=== PATIENT | male | born 1950 | race Caucasian/White ===

== ENCOUNTER 2016-04-16 19:15 | Inpatient (IN) | payer MEDICARE, OTHER ==
[~2016-04-16] VITALS: Ht 172.7 cm; Wt 92.0 kg
[~2016-04-16 19:15] MED LIST: ALBU18HF IH; AZIT600T PO; BACTDS PO; CYAN100053 IM; DARU800T PO; ELVI1TAB PO; ESCI10TA PO; FAMO-18 PO; LORA-186 PO; MULT-552 PO; TAMS-14 PO; [UNRECOGNIZED DRUG - CODE] PO
[2016-04-16 19:21] VITALS: Ht 172.7 cm; Wt 92.0 kg
[2016-04-16] MEDS ORDERED: SODIUM CHLORIDE 0.9% 1L BAG IV* STA (20:52)
[2016-04-16] MEDS ORDERED: VANCOMYCIN 1 GM (PMX) 250 ML IVPB STA (20:52)
[2016-04-16 20:55] VITALS: TEMP 99.7
[2016-04-16] MEDS ORDERED: CEFEPIME 2GM/50 ML (PMX) 50 ML IVPB SCH (21:00)
[2016-04-16] MEDS ORDERED: FLUCONAZOLE 400 MG/NS (PMX) 200 ML IVPB ONE (21:00)
[2016-04-16] MEDS ORDERED: AZIT600T PO (21:21)
[2016-04-16] MEDS ORDERED: DARU800T PO (21:21)
[2016-04-16] MEDS ORDERED: ELVI1TAB PO (21:22)
[2016-04-16] MEDS ORDERED: LORA10TA3 PO (21:23)
--- NOTE | 2016-04-16 21:24 | RADRPT ---
PROCEDURE: XR Chest. CLINICAL INDICATION: Cough. TECHNIQUE: PA and lateral chest x-ray. COMPARISON: Chest, 04/18/2015. FINDINGS: The heart is not enlarged. The lungs are somewhat overinflated. There is no acute infiltrate in th e lungs. No focal opacification is seen. No pleural effusion. There is multilevel mild degenerativ e spondylosis of the thoracic spine with mild anterolateral osteophytosis. IMPRESSION: 1. Somewhat overinflated lungs. RPTAT: GG .Mike Weiner MD, MD Date Time Electronically viewed and signed by .Mike Weiner MD, MD on 04/16/2016 21:24 .Y/
[2016-04-16 21:49] LABS: ADD SCAN DIFF NO
[2016-04-16 21:53] LABS: ABNORMAL IP MESSAGE 1; HEMATOCRIT 36.6 % (42.0-52.0); HEMOGLOBIN 12.8 g/dl (14.0-18.0); MEAN CORPUSCULAR HEMOGLOBIN 29.5 pg (29.0-33.0); MEAN CORPUSCULAR VOLUME 84.3 fl (82.0-101.0); MEAN PLATELET VOLUME 9.1 fl (7.4-10.4); PLATELET COUNT 245 10^3/UL (140-415); RED BLOOD COUNT 4.34 10^6/ul (4.70-6.10); RED CELL DISTRIBUTION WIDTH 13.9 % (11.5-14.5)
[2016-04-16] MEDS ORDERED: morphine 10 MG INJ IV ONE (22:00)
[2016-04-16 22:10] LABS: INR 1.01; PROTIME 13.3 Sec (12.2-14.2)
[2016-04-16 22:11] LABS: ALBUMIN 3.8 g/dl (3.3-4.9); PARTIAL THROMBOPLASTIN TIME 33.4 Sec (25.0-35.0)
[2016-04-16 22:12] LABS: CHLORIDE 102 mmol/L (97-110); SODIUM 138 mmol/L (135-144)
[2016-04-16 22:14] LABS: ANION GAP 18 (8-16); BILIRUBIN,INDIRECT 0.2 mg/dl (0-1.1); BILIRUBIN,TOTAL 0.2 mg/dl (0.2-1.3); CARBON DIOXIDE 22 mmol/L (21-31); CREATININE 0.79 mg/dl (0.61-1.24)
[2016-04-16 22:15] LABS: ALANINE AMINOTRANSFERASE 31 IU/L (13-69); ALBUMIN/GLOBULIN RATIO 1.05; ALKALINE PHOSPHATASE 107 IU/L (42-121); ASPARTATE AMINO TRANSFERASE 44 IU/L (15-46); BLOOD UREA NITROGEN 13 mg/dl (7-20); CALCIUM 8.6 mg/dl (8.4-10.2); GLUCOSE 132 mg/dl (70-220); TOTAL PROTEIN 7.4 g/dl (6.1-8.1)
[2016-04-16 22:26] LABS: ADD UMIC NO; URINE BILIRUBIN (Dip) NEGATIVE (NEGATIVE); URINE BLOOD (Dip) NEGATIVE (NEGATIVE); URINE COLOR LT. YELLOW (YELLOW); URINE GLUCOSE (Dip) NEGATIVE (NEGATIVE); URINE KETONES (Dip) NEGATIVE (NEGATIVE); URINE LEUKOCYTE ESTERASE (Dip) NEGATIVE (NEGATIVE); URINE NITRITE (Dip) NEGATIVE (NEGATIVE); URINE TOTAL PROTEIN (Dip) NEGATIVE (NEGATIVE); URINE UROBILINOGEN (Dip) 0.2 E.U./dL (0.1-1.0)
[2016-04-16 22:27] LABS: TROPONIN-I < 0.012 ng/ml (0.00-0.12)
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
[2016-04-16 23:53] LABS: EOSINOPHILS # 0.1 10^3/ul (0.0-0.5); LYMPHOCYTES # 0.8 10^3/ul (0.8-2.9); MONOCYTE # 0.5 10^3/ul (0.3-0.9); NEUTROPHIL # 0.7 10^3/ul (1.6-7.5)
[2016-04-17] MEDS ORDERED: ACETAMINOPHEN 325 MG TAB PO PRN
[2016-04-17] MEDS ORDERED: ONDANSETRON 4 MG INJ IV PRN
[2016-04-17 00:27] VITALS: BP 128/81; PULSE 69; RESP 18
[2016-04-17 00:28] VITALS: BMI 30.8
[2016-04-17] MEDS ORDERED: ZOLPIDEM 5 MG TAB PO PRN (01:00)
[2016-04-17] MEDS ORDERED: LEVOFLOXACIN 500MG/D5W (PMX) 100 ML IVPB SCH ×2 (01:00→01:30)
[2016-04-17] MEDS: FLUCONAZOLE 100 MG/NS (PMX) 50 ML IVPB SCH (01:17)
[2016-04-17] MEDS: HYDROCODONE/APAP (5/325) TAB PO PRN (01:26)
[2016-04-17 05:48] LABS: ADD SCAN DIFF NO
[2016-04-17 05:59] LABS: ALBUMIN 3.3 g/dl (3.3-4.9); POTASSIUM 3.7 mmol/L (3.5-5.1)
[2016-04-17 06:01] LABS: BILIRUBIN,INDIRECT 0.1 mg/dl (0-1.1); BILIRUBIN,TOTAL 0.1 mg/dl (0.2-1.3); CREATININE 0.66 mg/dl (0.61-1.24)
[2016-04-17 06:02] LABS: ALBUMIN/GLOBULIN RATIO 1.06; CALCIUM 7.9 mg/dl (8.4-10.2); TOTAL PROTEIN 6.4 g/dl (6.1-8.1)
[2016-04-17 06:07] LABS: ABNORMAL IP MESSAGE 1; HEMATOCRIT 35.1 % (42.0-52.0); HEMOGLOBIN 12.1 g/dl (14.0-18.0); MEAN CORPUSCULAR HEMOGLOBIN 29.3 pg (29.0-33.0); MEAN CORPUSCULAR HGB CONC 34.5 g/dl (32.0-37.0); MEAN PLATELET VOLUME 9.2 fl (7.4-10.4); PLATELET COUNT 211 10^3/UL (140-415); RED BLOOD COUNT 4.13 10^6/ul (4.70-6.10); WHITE BLOOD COUNT 1.6 10^3/ul (4.8-10.8)
[2016-04-17] MEDS: morphine 2 MG INJ IV PRN ×3 (06:39→20:37)
[2016-04-17 08:12] VITALS: BP 110/69; RESP 19
[2016-04-17 09:23] LABS: EOSINOPHILS # 0.2 10^3/ul (0.0-0.5); LYMPHOCYTES # 0.6 10^3/ul (0.8-2.9); MONOCYTE # 0.4 10^3/ul (0.3-0.9); NEUTROPHIL # 0.4 10^3/ul (1.6-7.5)
[2016-04-17 09:24] LABS: SMUDGE CELLS% Rare
[2016-04-17] MEDS: ENOXAPARIN 40 MG/0.4 ML SYG SC SCH (11:01)
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
--- NOTE | 2016-04-17 14:13 | CONS ---
Date/Time of Note Date/Time of Note DATE: 04/17/16 TIME: 14:08 Assessment/Plan Assessment/Plan Additional Assessment/Plan Chest x-ray was reviewed from yesterday which is clear. Labs also were reviewed. Assessment and recommendations; 1. Patient with history of being HIV positive off medication for the last 6 months with significant leukopenia. 2. Clear chest x-ray. 3. Patient having dysphagia cannot rule out fungal esophagitis. Continue current treatment. ID consult is pending. Patient has been resumed on his antiviral regimen. May need to have an EGD. HIV viral load and CD4 CD8 counts are pending. Consultation Date/Type/Reason Admit Date/Time Apr 16, 2016 at 23:36 Date of Consultation: Apr 17, 2016 Type of Consultation: Pulmonary Reason for Consultation Pulmonary consultation obtained for evaluation of possible pneumonia. Patient admitted to hospital because of cough, fever. Has history of HIV positivity. Next History of present illness; patient is a 66-year-old male who came into the hospital yesterday with a 2 day history of fever as well as nonspecific upper abdominal pain without any vomiting. Patient has been complaining of some difficulty swallowing for the last couple of days. Denies any cough, wheezing, chest pain or sputum production. She also denies any diarrhea or vomiting. Upon evaluation a chest x-ray was done which has essentially been unremarkable. Patient also had a CBC done which is showing leukopenia. Patient's viral load as well as CD4/CD8 counts are not available. According to the patien,t he did not take his medication for the last 6 months on account of GI upset. Past medical history; HIV positive. Patient denies any history of opportunistic infections. No sign of any surgeries. Medications; were reviewed. Allergies; are none. Social history; she does not smoke or use any drugs no heat no history of any alcohol use. Family history; he is . Occupational history; patient is on disability. Review of systems; denies any headache, visual changes. Any hearing loss. Any sinus symptoms. Does complain of dysphagia. Planes of sore throat. Denies any chest pain. Any angina, wheezing. Any cough or sputum production. Denies any abdominal pain. Complains of nausea. Denies any vomiting. Denies any diarrhea, melena, hematochezia. Denies any edema. Denies any skin changes. General examination; elderly male currently in no distress awake and alert. Eyes: no complaints ENT: no complaints Respiratory: cough Cardiovascular: no complaints Psychological: nl mood/affect Social History Alcohol Use: none Smoking Status: Former smoker Drug Use: cocaine Exam/Review of Systems Vital Signs Vitals Vital Signs Date Time Temp Pulse Resp B/P Pulse Ox O2 Delivery O2 Flow Rate FiO2 04/17/16 08:12 97.5 77 19 110/69 98 04/17/16 08:00 Room Air Intake and Output 04/16/16 04/16/16 04/17/16 15:00 23:00 07:00 Intake Total 50 ml 690 ml Output Total 800 ml Balance 50 ml -110 ml Exam HEENT examination; supple neck, no JVD. No lymphadenopathy. Midline trachea. Pharynx is clear. Fair dentition. Pupils are midsize and reactive to light. No thyromegaly. No lymphadenopathy. Chest examination; clear to auscultation bilaterally. S1-S2 audible, regular rhythm. No murmurs. Abdomen examination; soft, nondistended. Nontender. No organomegaly. Bowel sounds audible. Extremity examination; no peripheral edema. Pulses 2+ bilaterally. There is no clubbing. 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 Results Result Diagram: 04/17/167 04/17/16446 Results 24 hrs Laboratory Tests Test 04/16/16 21:18 04/16/16 21:30 04/16/16 23:15 04/17/16 01:05 Activated Partial Thromboplast Time 33.4 Alanine Aminotransferase (ALT/SGPT) 31 Albumin 3.8 Albumin/Globulin Ratio 1.05 Alkaline Phosphatase 107 Anion Gap 18 H Aspartate Amino Transf (AST/SGOT) 44 Blood Urea Nitrogen 13 Calcium Level 8.6 Carbon Dioxide Level 22 Chloride Level 102 Creatinine 0.79 Differential Comment MANUAL DIFF Direct Bilirubin 0.00 Eosinophils # 0.1 Eosinophils % 4.0 Globulin 3.60 H Glucose Level 132 Hematocrit 36.6 L Hemoglobin 12.8 L INR International Normalized Ratio 1.01 Indirect Bilirubin 0.2 Lactic Acid Level 1.1 0.9 0.6 Lymphocytes # 0.8 Lymphocytes % 40.0 Mean Corpuscular Hemoglobin 29.5 Mean Corpuscular Hemoglobin Concent 35.0 Mean Corpuscular Volume 84.3 Mean Platelet Volume 9.1 # Monocytes # 0.5 Monocytes % 23.0 H Neutrophils # 0.7 L Neutrophils % 33.0 L Platelet Count 245 Potassium Level 4.0 Prothrombin Time 13.3 Prothrombin Time Ratio 1.0 Red Blood Count 4.34 L Red Cell Distribution Width 13.9 Sodium Level 138 Total Bilirubin 0.2 Total Protein 7.4 Troponin I < 0.012 White Blood Count 2.0 #L Urine Bilirubin NEGATIVE Urine Clarity CLEAR Urine Color LT. YELLOW Urine Glucose NEGATIVE Urine Hemoglobin NEGATIVE Urine Ketones NEGATIVE Urine Leukocyte Esterase NEGATIVE Urine Nitrite NEGATIVE Urine Specific [place] 1.010 Urine Total Protein NEGATIVE Urine Urobilinogen 0.2 E.U./dL Urine pH 6.0 Test 04/17/16 04:47 Alanine Aminotransferase (ALT/SGPT) 36 Albumin 3.3 Albumin/Globulin Ratio 1.06 Alkaline Phosphatase 88 Anion Gap 14 Aspartate Amino Transf (AST/SGOT) 47 H Band Neutrophils % 2.0 Basophils # 0.0 Basophils % 1.0 Blast Cells % 1.0 H Blastocytes # 0.0 Blood Urea Nitrogen 9 Calcium Level 7.9 L Carbon Dioxide Level 23 Chloride Level 109 Creatinine 0.66 Differential Comment MANUAL DIFF Direct Bilirubin 0.00 Eosinophils # 0.2 Eosinophils % 10.0 H Giant Platelets OCCASIONAL Globulin 3.10 Glucose Level 89 # Hematocrit 35.1 L Hemoglobin 12.1 L Indirect Bilirubin 0.1 Lymphocytes # 0.6 L Lymphocytes % 40.0 Mean Corpuscular Hemoglobin 29.3 Mean Corpuscular Hemoglobin Concent 34.5 Mean Corpuscular Volume 85.0 Mean Platelet Volume 9.2 Metamyelocytes # 0.0 Metamyelocytes % 2.0 H Monocytes # 0.4 Monocytes % 22.0 H Neutrophils # 0.4 L Neutrophils % 22.0 L Nucleated Red Blood Cells % 1.0 H Platelet Count 211 Potassium Level 3.7 Red Blood Count 4.13 L Red Cell Distribution Width 14.0 Smudge Cells Rare Sodium Level 142 Total Bilirubin 0.1 L Total Protein 6.4 # White Blood Count 1.6 L Medications Medications Current Medications Acetaminophen 650 mg 650 mg Q4H PRN PO PAIN AND OR ELEVATED TEMP; Start at 01:00 Fluconazole/ Sodium Chloride (Diflucan 100 Mg/ NS (Pmx)) 50 ml @ 50 mls/hr Q24H IVPB ; Start 04/17/16 at 02:00 Enoxaparin Sodium (Lovenox) 40 mg DAILY SC Last administered on 04/17/16 11:01 ; Admin Dose 40 MG; Start 04/17/16 at 09:00 Acetaminophen/ Hydrocodone Bitart ([place] (5/325)) 1 tab Q4H PRN PO PAIN Last administered on 04/17/16 01:26; Admin Dose 1 TAB; Start 04/17/16 at 01:00 Morphine Sulfate (morphine) 2 mg Q4H PRN IV SEVERE PAIN Last administered on 06:39; Admin Dose 2 MG; Start 04/17/16 at 01:00 Zolpidem Tartrate 5 mg 5 mg HS PRN PO INSOMNIA Last administered on 04/17/16 01:26; Admin Dose 5 MG; Start 04/17/16 at 01:00 Levofloxacin/ Dextrose (Levaquin 500mg/ D5W 100 ml (Pmx)) 100 ml @ 100 mls/hr Q24H IVPB Last administered on 04/17/16 01:29; Admin Dose 100 MLS/HR; Start at 01:30 SCOOBY DAMIAN Apr 17, 2016 14:12
[2016-04-17] MEDS: ACETAMINOPHEN 325 MG TAB PO PRN (14:50)
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
[2016-04-17 19:54] VITALS: BP 141/92; RESP 20
[2016-04-17] MEDS: ARTIFICIAL TEARS 15 ML OPH BOTH EYES PRN (20:37)
[2016-04-18] MEDS: FLUCONAZOLE 100 MG/NS (PMX) 50 ML IVPB SCH (02:13)
[2016-04-18] MEDS: ARTIFICIAL TEARS 15 ML OPH BOTH EYES PRN ×2 (02:13→18:46)
[2016-04-18] MEDS: morphine 2 MG INJ IV PRN ×4 (02:13→22:37)
[2016-04-18 05:55] LABS: ADD SCAN DIFF NO
[2016-04-18 05:59] LABS: ABNORMAL IP MESSAGE 1; HEMATOCRIT 37.6 % (42.0-52.0); MEAN CORPUSCULAR HEMOGLOBIN 29.3 pg (29.0-33.0); MEAN CORPUSCULAR HGB CONC 34.6 g/dl (32.0-37.0); MEAN CORPUSCULAR VOLUME 84.7 fl (82.0-101.0); MEAN PLATELET VOLUME 9.1 fl (7.4-10.4); PLATELET COUNT 216 10^3/UL (140-415); RED BLOOD COUNT 4.44 10^6/ul (4.70-6.10); RED CELL DISTRIBUTION WIDTH 14.2 % (11.5-14.5); WHITE BLOOD COUNT 1.6 10^3/ul (4.8-10.8)
[2016-04-18 06:22] LABS: POTASSIUM 3.9 mmol/L (3.5-5.1)
[2016-04-18 06:25] LABS: CREATININE 0.71 mg/dl (0.61-1.24)
[2016-04-18 06:26] LABS: CALCIUM 8.7 mg/dl (8.4-10.2)
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
[2016-04-18 07:16] VITALS: BP 143/89; RESP 20
--- NOTE | 2016-04-18 08:49 | RADRPT ---
Echocardiogram Report Patient Name: CYNTHIA CLIFFORD Gender: Male Date: 1950 Study Date: 17-Apr-2016 Biblical Languages Professor: [facility] Location: [id number] Ref. Physician: MAXIME MCKEON Quality: Adequate Procedures: Transthoracic echocardiogram with complete 2D, M-Mode, and doppler examination. Indications: Chest Pain. 2D/M Mode Doppler Measurement Value Normal Ranges Measurement Value Normal Ranges LVIDd 2D 3.7 3.5 - 5.6 cm AV Peak Jae 0.8 m/sec LVIDs 2D 2.5 2.1 - 4.1 cm AV Peak PG 2.5 mmHg LVPWd 2D 1.3 0.6 - 1.1 cm LVOT Peak Jae 0.7 m/sec IVSd 2D 1.3 0.6 - 1.1 cm LVOT Peak PG 1.9 mmHg AoR Diam 2D 2.9 2.0 - 3.7 cm EDV 2D 58.0 cm3 ESV 2D 16.5 cm3 Findings Left Ventricle: Normal left ventricular cavity size. Mild concentric left ventricular hypertrophy. Ejection fraction is visually estimated at 60 %. Abnormal Diastolic Function. Right Ventricle: Normal right ventricular size. Normal right ventricular systolic function. Left Atrium: The left atrium is normal in size. Right Atrium: The right atrium is normal in size. Mitral Valve: Mild mitral leaflet calcification. Trace mitral regurgitation. Aortic Valve: Trileaflet aortic valve. Tricuspid Valve: Tricuspid valve not well visualized. There is trace tricuspid regurgitation. Pulmonic Valve: There is trace pulmonic regurgitation. Pericardium: Normal pericardium with no significant pericardial effusion. Aorta: Normal aortic root. IVC: Dilated IVC with respiratory collapse consistent with elevated right atrial pressure. Conclusions 1.Normal left ventricular cavity size. Mild concentric left ventricular hypertrophy. Ejection fraction is visually estimated at 60 %. Abnormal Diastolic Function. 2.Normal right ventricular size. Normal right ventricular systolic function. 3.The left atrium is normal in size. 4.Mild mitral leaflet calcification. Trace mitral regurgitation. 5.Trileaflet aortic valve. 6.Tricuspid valve not well visualized. There is trace tricuspid regurgitation. Electronically Signed By: Pj Silver 18-Apr-2016 08:48:26 -0800 Patient Name: CYNTHIA CLIFFORD Study Date: 17-Apr-2016 [id number]
[2016-04-18 09:14] LABS: EOSINOPHILS # 0.3 10^3/ul (0.0-0.5); LYMPHOCYTES # 0.8 10^3/ul (0.8-2.9); MONOCYTE # 0.4 10^3/ul (0.3-0.9); NEUTROPHIL # 0.2 10^3/ul (1.6-7.5)
--- NOTE | 2016-04-18 09:26 | CONS ---
Date/Time of Note Date/Time of Note DATE: 04/18/16 TIME: 09:23 Assessment/Plan Assessment/Plan Problems: (1) Syncope Status: Acute (2) Cough Status: Acute (3) Leukopenia Status: Acute Qualifiers: Qualified Code: D72.819 - Leukopenia, unspecified type (4) Chest pain Status: Acute Qualifiers: Qualified Code: R07.89 - Other chest pain (5) Jud infection, oral Status: Acute (6) Sepsis Status: Acute Qualifiers: Qualified Code: A41.9 - Sepsis, due to unspecified organism (7) Family history of hypertension (8) Family history of cardiac disorder Additional Assessment/Plan HIV Dyspahgia Abd pain Sepsis CP SOB Claudication Pt is stable at this time cardiac [place] Clear for EGD if needed. Pt LVEF is normal PT has severe claudication. Will get Art duplex Plan to observe cardiac martinez out pt f/u Consultation Date/Type/Reason Admit Date/Time Apr 16, 2016 at 23:36 Date of Consultation: Apr 18, 2016 Reason for Consultation Patient is 66 year old male with HIV since 1995 was on meds but stopped from past 6m, Came in with abd pain and dysphagia called in for CP. Pt also complaining of severe claudication as well to me. Pt has difficulty swallowing, Dr Kenny has been consulted. Plan for work up. LVEF normal. Constitutional: no complaints Eyes: no complaints ENT: no complaints Respiratory: cough Cardiovascular: no complaints Psychological: nl mood/affect, no complaints Past Medical History Medical History: angina Social History Alcohol Use: none Smoking Status: Former smoker Drug Use: cocaine Exam/Review of Systems Vital Signs Vitals Vital Signs Date Time Temp Pulse Resp B/P Pulse Ox O2 Delivery O2 Flow Rate FiO2 04/18/16 07:16 98.4 68 20 143/89 100 04/17/16 08:00 Room Air Intake and Output 04/17/16 04/17/16 04/18/16 15:00 23:00 07:00 Intake Total 410 ml Output Total 1500 ml Balance -1090 ml Results Result Diagram: 04/18/16 0505 04/18/16 0505 Results 24 hrs Laboratory Tests Test 04/17/16 18:35 04/18/16 00:35 04/18/16 05:05 Troponin I < 0.010 < 0.012 < 0.010 Anion Gap 14 Basophils # 0.0 Basophils % 2.0 Blood Urea Nitrogen 11 Calcium Level 8.7 Carbon Dioxide Level 25 Chloride Level 104 Creatinine 0.71 Eosinophils # 0.3 Eosinophils % 18.0 H Glucose Level 86 Hematocrit 37.6 L Hemoglobin 13.0 L Lymphocytes # 0.8 Lymphocytes % 47.0 Mean Corpuscular Hemoglobin 29.3 Mean Corpuscular Hemoglobin Concent 34.6 Mean Corpuscular Volume 84.7 Mean Platelet Volume 9.1 Monocytes # 0.4 Monocytes % 22.0 H Myelocytes # 0.0 Myelocytes % 1.0 H Neutrophils # 0.2 L Neutrophils % 10.0 L Nucleated Red Blood Cells # Nucleated Red Blood Cells % Platelet Count 216 Potassium Level 3.9 Red Blood Count 4.44 L Red Cell Distribution Width 14.2 Sodium Level 139 White Blood Count 1.6 L Medications Medications Current Medications Acetaminophen 650 mg 650 mg Q4H PRN PO PAIN AND OR ELEVATED TEMP Last administered on 04/17/16 14:50; Admin Dose 650 MG; Start 04/17/16 at 01:00 Fluconazole/ Sodium Chloride (Diflucan 100 Mg/ NS (Pmx)) 50 ml @ 50 mls/hr Q24H IVPB Last administered on 04/18/16 02:13; Admin Dose 50 MLS/HR; Start at 02:00 Enoxaparin Sodium (Lovenox) 40 mg DAILY SC Last administered on 04/17/16 11:01 ; Admin Dose 40 MG; Start 04/17/16 at 09:00 Acetaminophen/ Hydrocodone Bitart ([place] (5/325)) 1 tab Q4H PRN PO PAIN Last administered on 04/17/16 01:26; Admin Dose 1 TAB; Start 04/17/16 at 01:00 Morphine Sulfate (morphine) 2 mg Q4H PRN IV SEVERE PAIN Last administered on 06:48; Admin Dose 2 MG; Start 04/17/16 at 01:00 Zolpidem Tartrate (Ambien) 5 mg HS PRN PO INSOMNIA Last administered on 01:26; Admin Dose 5 MG; Start 04/17/16 at 01:00 Eye Lubricant (Artificial Tears Oph) 2 drop Q6H PRN BOTH EYES DRY EYES Last administered on 04/18/16 02:13; Admin Dose 2 DROP; Start 04/17/16 at 19:00 MUSA REYES MD Apr 18, 2016 09:26
[2016-04-18] MEDS: ENOXAPARIN 40 MG/0.4 ML SYG SC SCH (09:40)
--- NOTE | 2016-04-18 12:26 | CONS ---
Date/Time of Note Date/Time of Note DATE: 04/18/16 TIME: 12:12 Assessment/Plan Assessment/Plan Chief Complaint/Hosp Course - AIDS, on-compliant with medications - neutropenia - fever - cough on admission, CXR showed overinflated lungs - GNR in urine, likely colonization - fever on 04/16/2016 - LUE weakness and pain - thrush recommendations - pending results: cropto antigen, cocci serology, AFB blood cultures - added: CMV quantitative PCR, repeat Q TB gold - cough: influenza screen, sputum culture, CT chest - for LUE weakness and pain: discussed with Dr. Whelan. Will order CT of LUE and L shoulder. If non-diagnostic, will order MRI of the LUE and C/T spines - when BMBx is done, I will request AFB, fungal viral and bacterial stain and Cx - start pip/tazo for Gram negative in urine; would treat even if it colonization because Pt's neutropenic management d/w Pt, his RN and Dr. Whelan. the total time I took to care for this today was from 1115 to 1200 Problems: Consultation Date/Type/Reason Admit Date/Time Apr 16, 2016 at 23:36 Initial Consult Date 04/18/16 Type of Consultation: Infectious Diseases Referring Provider: MAXIME MCKEON 24 HR Interval Summary Constitutional: no complaints Detailed Summary Eyes: no complaints ENT: no complaints Respiratory: cough Cardiovascular: no complaints Gastrointestinal: no complaints Genitourinary: no complaints Musculoskeletal: bone/joint pain (lue), restricted range of motion Skin: no complaints Neurologic: focal-weakness (lue) Endocrine: no complaints Exam/Review of Systems Vital Signs Vitals Vital Signs Date Time Temp Pulse Resp B/P Pulse Ox O2 Delivery O2 Flow Rate FiO2 04/18/16 07:16 98.4 68 20 143/89 100 04/17/16 08:00 Room Air Intake and Output 04/17/16 04/17/16 04/18/16 15:00 23:00 07:00 Intake Total 410 ml Output Total 1500 ml Balance -1090 ml Exam Constitutional: alert, frail Psych: nl mood/affect, no complaints Head: atraumatic, normocephalic Eyes: nl conjunctiva ENMT: nl external ears & nose, nl nasal mucosa & septum Neck: No nuchal rigidity Respiratory: clear to auscultation, normal air movement Cardiovascular: nl pulses, regular rate and rhythm Gastrointestinal: non-tender, soft Musculoskeletal: No swelling Extremities: No edema Neurological: focal weakness (can abduct LUE up to 60 degrees, strength is 4/5) Skin: nl turgor Lymph: nl lymph nodes Results Result Diagram: 04/18/16 0505 04/18/16 0505 Results 24 hrs Laboratory Tests Test 04/17/16 18:35 04/18/16 00:35 04/18/16 05:05 Troponin I < 0.010 < 0.012 < 0.010 Anion Gap 14 Basophils # 0.0 Basophils % 2.0 Blood Urea Nitrogen 11 Calcium Level 8.7 Carbon Dioxide Level 25 Chloride Level 104 Creatinine 0.71 Eosinophils # 0.3 Eosinophils % 18.0 H Glucose Level 86 Hematocrit 37.6 L Hemoglobin 13.0 L Lymphocytes # 0.8 Lymphocytes % 47.0 Mean Corpuscular Hemoglobin 29.3 Mean Corpuscular Hemoglobin Concent 34.6 Mean Corpuscular Volume 84.7 Mean Platelet Volume 9.1 Monocytes # 0.4 Monocytes % 22.0 H Myelocytes # 0.0 Myelocytes % 1.0 H Neutrophils # 0.2 L Neutrophils % 10.0 L Nucleated Red Blood Cells # Nucleated Red Blood Cells % Platelet Count 216 Potassium Level 3.9 Red Blood Count 4.44 L Red Cell Distribution Width 14.2 Sodium Level 139 White Blood Count 1.6 L Medications Medications Current Medications Acetaminophen 650 mg 650 mg Q4H PRN PO PAIN AND OR ELEVATED TEMP Last administered on 04/17/16 14:50; Admin Dose 650 MG; Start 04/17/16 at 01:00 Fluconazole/ Sodium Chloride (Diflucan 100 Mg/ NS (Pmx)) 50 ml @ 50 mls/hr Q24H IVPB Last administered on 04/18/16 02:13; Admin Dose 50 MLS/HR; Start at 02:00 Enoxaparin Sodium (Lovenox) 40 mg DAILY SC Last administered on 04/18/16 09:40 ; Admin Dose 40 MG; Start 04/17/16 at 09:00 Acetaminophen/ Hydrocodone Bitart ([place] (5/325)) 1 tab Q4H PRN PO PAIN Last administered on 04/17/16 01:26; Admin Dose 1 TAB; Start 04/17/16 at 01:00 Morphine Sulfate (morphine) 2 mg Q4H PRN IV SEVERE PAIN Last administered on 06:48; Admin Dose 2 MG; Start 04/17/16 at 01:00 Zolpidem Tartrate (Ambien) 5 mg HS PRN PO INSOMNIA Last administered on 01:26; Admin Dose 5 MG; Start 04/17/16 at 01:00 Eye Lubricant (Artificial Tears Oph) 2 drop Q6H PRN BOTH EYES DRY EYES Last administered on 04/18/16 02:13; Admin Dose 2 DROP; Start 04/17/16 at 19:00 JACK LAIRD M.D. Apr 18, 2016 12:26
--- NOTE | 2016-04-18 12:37 | CONS ---
Date/Time of Note Date/Time of Note DATE: 04/18/16 TIME: 12:36 Assessment/Plan Assessment/Plan Chief Complaint/Hosp Course - AIDS, on-compliant with medications - neutropenia - fever - cough on admission, CXR showed overinflated lungs - GNR in urine, likely colonization - fever on 04/16/2016 - LUE weakness and pain - thrush recommendations - pending results: cropto antigen, cocci serology, AFB blood cultures - added: CMV quantitative PCR, repeat Q TB gold - cough: influenza screen, sputum culture, CT chest - for LUE weakness and pain: discussed with Dr. Whelan. Will order CT of LUE and L shoulder. If non-diagnostic, will order MRI of the LUE and C/T spines - when BMBx is done, I will request AFB, fungal viral and bacterial stain and Cx - start pip/tazo for Gram negative in urine; would treat even if it colonization because Pt's neutropenic - continue flucon or thrush - start Bactrim and Azithromycin for PCP and MAX prophylaxis while waiting for CD4 count to come back management d/w Pt, his RN and Dr. Whelan. the total time I took to care for this today was from 1115 to 1200 Problems: Consultation Date/Type/Reason Admit Date/Time Apr 16, 2016 at 23:36 Initial Consult Date 04/18/16 Type of Consultation: Infectious Diseases Referring Provider: MAXIME MCKEON Exam/Review of Systems Vital Signs Vitals Vital Signs Date Time Temp Pulse Resp B/P Pulse Ox O2 Delivery O2 Flow Rate FiO2 04/18/16 07:16 98.4 68 20 143/89 100 04/17/16 08:00 Room Air Intake and Output 04/17/16 04/17/16 04/18/16 15:00 23:00 07:00 Intake Total 410 ml Output Total 1500 ml Balance -1090 ml Results Result Diagram: 04/18/16 0505 04/18/16 0505 Results 24 hrs Laboratory Tests Test 04/17/16 18:35 04/18/16 00:35 04/18/16 05:05 Troponin I < 0.010 < 0.012 < 0.010 Anion Gap 14 Basophils # 0.0 Basophils % 2.0 Blood Urea Nitrogen 11 Calcium Level 8.7 Carbon Dioxide Level 25 Chloride Level 104 Creatinine 0.71 Eosinophils # 0.3 Eosinophils % 18.0 H Glucose Level 86 Hematocrit 37.6 L Hemoglobin 13.0 L Lymphocytes # 0.8 Lymphocytes % 47.0 Mean Corpuscular Hemoglobin 29.3 Mean Corpuscular Hemoglobin Concent 34.6 Mean Corpuscular Volume 84.7 Mean Platelet Volume 9.1 Monocytes # 0.4 Monocytes % 22.0 H Myelocytes # 0.0 Myelocytes % 1.0 H Neutrophils # 0.2 L Neutrophils % 10.0 L Nucleated Red Blood Cells # Nucleated Red Blood Cells % Platelet Count 216 Potassium Level 3.9 Red Blood Count 4.44 L Red Cell Distribution Width 14.2 Sodium Level 139 White Blood Count 1.6 L Medications Medications Current Medications Acetaminophen 650 mg 650 mg Q4H PRN PO PAIN AND OR ELEVATED TEMP Last administered on 04/17/16 14:50; Admin Dose 650 MG; Start 04/17/16 at 01:00 Fluconazole/ Sodium Chloride (Diflucan 100 Mg/ NS (Pmx)) 50 ml @ 50 mls/hr Q24H IVPB Last administered on 04/18/16 02:13; Admin Dose 50 MLS/HR; Start at 02:00 Enoxaparin Sodium (Lovenox) 40 mg DAILY SC Last administered on 04/18/16 09:40 ; Admin Dose 40 MG; Start 04/17/16 at 09:00 Acetaminophen/ Hydrocodone Bitart ([place] (5/325)) 1 tab Q4H PRN PO PAIN Last administered on 04/17/16 01:26; Admin Dose 1 TAB; Start 04/17/16 at 01:00 Morphine Sulfate (morphine) 2 mg Q4H PRN IV SEVERE PAIN Last administered on 06:48; Admin Dose 2 MG; Start 04/17/16 at 01:00 Zolpidem Tartrate (Ambien) 5 mg HS PRN PO INSOMNIA Last administered on 01:26; Admin Dose 5 MG; Start 04/17/16 at 01:00 Eye Lubricant (Artificial Tears Oph) 2 drop Q6H PRN BOTH EYES DRY EYES Last administered on 04/18/16 02:13; Admin Dose 2 DROP; Start 04/17/16 at 19:00 JACK LAIRD M.D. Apr 18, 2016 12:37
--- NOTE | 2016-04-18 12:53 | RADRPT ---
PROCEDURE: US Lower Extremity, Arterial. CLINICAL INDICATION: Pain. Claudication. TECHNIQUE: Multiple longitudinal and transverse images of the bilateral lower extremity arteries w ere obtained with zhu scale and color Doppler imaging. COMPARISON: None. FINDINGS: Location Right (cm/s)Left (cm/s) [id number] 54 PSFA69 62 MSFA63 48 DSFA37 40 POP35 41 PTA64 58 DPA22 39 ABI1.01.0 Triphasic wave forms are seen throughout the bilateral lower extremity arteries. IMPRESSION: No evidence of hemodynamically significant stenosis or occlusion of the bilateral lower extremity ar teries. RPTAT: HLST .Sondra Miller MD, MD Date Time Electronically viewed and signed by .Sondra Miller MD, MD on 04/18/2016 12:53 .T/
[2016-04-18] MEDS: ACETAMINOPHEN 325 MG TAB PO PRN (13:05)
--- NOTE | 2016-04-18 13:06 | CONS ---
Date/Time of Note Date/Time of Note DATE: 04/18/16 TIME: 13:02 Assessment/Plan Assessment/Plan Additional Assessment/Plan Assessment and recommendations; next 1. Patient admitted with dysphagia likely from Jud esophagitis. 2. History of being HIV positive, patient off medication for the last 6 months. 3. Severe leukopenia. CD4/CD8 counts not available currently. Viral load also is pending. 4. Currently no evidence of any pulmonary pathology. Continue current treatment per ID recommendations. I will sign off please reconsult if needed. Consultation Date/Type/Reason Admit Date/Time Apr 16, 2016 at 23:36 Initial Consult Date 04/18/16 Type of Consultation: Pulmonary Referring Provider: MAXIME MCKEON 24 HR Interval Summary Free Text/Dictation Patient condition is stable. According to him dysphagia is improving. Patient currently is eating lunch and denies any difficulty swallowing. Denies any cough, sputum production, fever, chills. Denies any other constitutional symptoms. General examination; middle-aged man, currently in no distress. Awake and alert. Exam/Review of Systems Vital Signs Vitals Vital Signs Date Time Temp Pulse Resp B/P Pulse Ox O2 Delivery O2 Flow Rate FiO2 04/18/16 07:16 98.4 68 20 143/89 100 04/17/16 08:00 Room Air Intake and Output 04/17/16 04/17/16 04/18/16 15:00 23:00 07:00 Intake Total 410 ml Output Total 1500 ml Balance -1090 ml Exam H EENT examination; supple neck, no JVD. No lymphadenopathy. Midline trachea. No oral thrush seen. No neck masses. Supple neck. No thyromegaly. Pupils are midsize and reactive to light. Extraocular movements are intact. Patient has fair dentition. Chest examination; clear to auscultation bilaterally. S1-S2 audible, no murmurs. Regular rhythm. Abdomen examination; soft, nondistended. No organomegaly. Bowel sounds audible. Extremity examination; no peripheral edema. There is no clubbing. Pulses 2+ bilaterally. 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 Results Result Diagram: 04/18/16 0505 04/18/16 0505 Results 24 hrs Laboratory Tests Test 04/17/16 18:35 04/18/16 00:35 04/18/16 05:05 Troponin I < 0.010 < 0.012 < 0.010 Anion Gap 14 Basophils # 0.0 Basophils % 2.0 Blood Urea Nitrogen 11 Calcium Level 8.7 Carbon Dioxide Level 25 Chloride Level 104 Creatinine 0.71 Eosinophils # 0.3 Eosinophils % 18.0 H Glucose Level 86 Hematocrit 37.6 L Hemoglobin 13.0 L Lymphocytes # 0.8 Lymphocytes % 47.0 Mean Corpuscular Hemoglobin 29.3 Mean Corpuscular Hemoglobin Concent 34.6 Mean Corpuscular Volume 84.7 Mean Platelet Volume 9.1 Monocytes # 0.4 Monocytes % 22.0 H Myelocytes # 0.0 Myelocytes % 1.0 H Neutrophils # 0.2 L Neutrophils % 10.0 L Nucleated Red Blood Cells # Nucleated Red Blood Cells % Platelet Count 216 Potassium Level 3.9 Red Blood Count 4.44 L Red Cell Distribution Width 14.2 Sodium Level 139 White Blood Count 1.6 L Medications Medications Current Medications Acetaminophen 650 mg 650 mg Q4H PRN PO PAIN AND OR ELEVATED TEMP Last administered on 04/17/16 14:50; Admin Dose 650 MG; Start 04/17/16 at 01:00 Fluconazole/ Sodium Chloride (Diflucan 100 Mg/ NS (Pmx)) 50 ml @ 50 mls/hr Q24H IVPB Last administered on 04/18/16 02:13; Admin Dose 50 MLS/HR; Start at 02:00 Enoxaparin Sodium (Lovenox) 40 mg DAILY SC Last administered on 04/18/16 09:40 ; Admin Dose 40 MG; Start 04/17/16 at 09:00 Acetaminophen/ Hydrocodone Bitart ([place] (5/325)) 1 tab Q4H PRN PO PAIN Last administered on 04/17/16 01:26; Admin Dose 1 TAB; Start 04/17/16 at 01:00 Morphine Sulfate (morphine) 2 mg Q4H PRN IV SEVERE PAIN Last administered on 06:48; Admin Dose 2 MG; Start 04/17/16 at 01:00 Zolpidem Tartrate (Ambien) 5 mg HS PRN PO INSOMNIA Last administered on 01:26; Admin Dose 5 MG; Start 04/17/16 at 01:00 Eye Lubricant 2 drop 2 drop Q6H PRN BOTH EYES DRY EYES Last administered on 2/ 27/17at 02:13; Admin Dose 2 DROP; Start 04/17/16 at 19:00 Piperacillin Sod/ Tazobactam Sod (Zosyn 3.375gm/ 100 ml (Pmx)) 100 ml @ 200 mls /hr Q8 IVPB ; Start 04/18/16 at 14:00; Status UNV Azithromycin (Zithromax) 1,200 mg Q7D PO ; Start 04/18/16 at 12:30; Status UNV Trimethoprim/ Sulfamethoxazole (Bactrim (Ds)) 1 tab DAILY PO ; Start 04/18/16 at 12:30; Status UNV SCOOBY DAMIAN Apr 18, 2016 13:06
[2016-04-18] MEDS: TRIMETHOPRIM/SULFAMETHOX (DS) TAB PO SCH (13:07)
--- NOTE | 2016-04-18 13:16 | CONS ---
Date/Time of Note Date/Time of Note DATE: 04/18/16 TIME: 13:11 Assessment/Plan Assessment/Plan Chief Complaint/Hosp Course 66 yo male with HIV admitted for cough and dysphagia currently being treated for thrush and UTI who now presents with leukopenia and neutropenia. At this time, the most likely cause of the leukopenia is his underlying untreated HIV which is causing myelosuppressive effects. Furthermore patient's underlying infection could also be contributing to his anemia. Still HIV patients are at higher risk for malignancy and we need to rule out any underlying hematologic malignancy. -Bone Marrow Bx ordered. will follow up -will send bone marrow for cytology, and flow cytometry. Cultures have also been ordered in case of underlying bone marrow infection contributing to his neutropenia -will hold on Neupogen for now. if patient begins to spike fevers will consider adding it at that time. Approximately 40 min were spent at patient's bedside and in coordination of his care Problems: Consultation Date/Type/Reason Admit Date/Time Apr 16, 2016 at 23:36 Date of Consultation: Apr 18, 2016 Type of Consultation: Hematology Reason for Consultation neutropenia Referring Provider: NAKIA LUNA MD Hx of Present Illness 66-year-old male with a history of HIV, off his antivirals for about 6 months who presented to [facility] with complaints of chest pain associated fever and cough for one week. Pt is currently being worked up by ID for any opportunistic infection. CBC revealed leukopenia with a WBC count of 1.6 and a neutrophil count of 200. Pt denies any weight loss or night sweats. Constitutional: no complaints Eyes: no complaints ENT: no complaints Respiratory: cough Cardiovascular: no complaints Gastrointestinal: no complaints Genitourinary: no complaints Musculoskeletal: bone/joint pain (lue), restricted range of motion Skin: no complaints Neurologic: focal-weakness (lue) Endocrine: no complaints Psychological: nl mood/affect, no complaints Past Medical History HIV Medical History: angina Past Surgical History Past Surgical Hx: no surgical history Family History Significant Family History: no pertinent family hx Social History Alcohol Use: none Smoking Status: Former smoker Drug Use: cocaine Exam/Review of Systems Vital Signs Vitals Vital Signs Date Time Temp Pulse Resp B/P Pulse Ox O2 Delivery O2 Flow Rate FiO2 04/18/16 07:16 98.4 68 20 143/89 100 04/17/16 08:00 Room Air Intake and Output 04/17/16 04/17/16 04/18/16 15:00 23:00 07:00 Intake Total 410 ml Output Total 1500 ml Balance -1090 ml Exam Constitutional: alert, oriented Psych: no complaints Head: atraumatic, normocephalic Eyes: nl conjunctiva ENMT: nl external ears & nose Neck: non-tender, supple Respiratory: clear to auscultation, normal air movement Cardiovascular: nl pulses, regular rate and rhythm Gastrointestinal: soft Musculoskeletal: nl extremities to inspection, nl gait and stance Extremities: normal pulses Results Result Diagram: 04/18/16 0505 04/18/16 0505 Results 24 hrs Laboratory Tests Test 04/17/16 18:35 04/18/16 00:35 04/18/16 05:05 Troponin I < 0.010 < 0.012 < 0.010 Anion Gap 14 Basophils # 0.0 Basophils % 2.0 Blood Urea Nitrogen 11 Calcium Level 8.7 Carbon Dioxide Level 25 Chloride Level 104 Creatinine 0.71 Eosinophils # 0.3 Eosinophils % 18.0 H Glucose Level 86 Hematocrit 37.6 L Hemoglobin 13.0 L Lymphocytes # 0.8 Lymphocytes % 47.0 Mean Corpuscular Hemoglobin 29.3 Mean Corpuscular Hemoglobin Concent 34.6 Mean Corpuscular Volume 84.7 Mean Platelet Volume 9.1 Monocytes # 0.4 Monocytes % 22.0 H Myelocytes # 0.0 Myelocytes % 1.0 H Neutrophils # 0.2 L Neutrophils % 10.0 L Nucleated Red Blood Cells # Nucleated Red Blood Cells % Platelet Count 216 Potassium Level 3.9 Red Blood Count 4.44 L Red Cell Distribution Width 14.2 Sodium Level 139 White Blood Count 1.6 L Medications Medications Current Medications Acetaminophen 650 mg 650 mg Q4H PRN PO PAIN AND OR ELEVATED TEMP Last administered on 04/18/16 13:05; Admin Dose 650 MG; Start 04/17/16 at 01:00 Fluconazole/ Sodium Chloride (Diflucan 100 Mg/ NS (Pmx)) 50 ml @ 50 mls/hr Q24H IVPB Last administered on 04/18/16 02:13; Admin Dose 50 MLS/HR; Start at 02:00 Enoxaparin Sodium (Lovenox) 40 mg DAILY SC Last administered on 04/18/16 09:40 ; Admin Dose 40 MG; Start 04/17/16 at 09:00 Acetaminophen/ Hydrocodone Bitart ([place] (5/325)) 1 tab Q4H PRN PO PAIN Last administered on 04/17/16 01:26; Admin Dose 1 TAB; Start 04/17/16 at 01:00 Morphine Sulfate (morphine) 2 mg Q4H PRN IV SEVERE PAIN Last administered on 06:48; Admin Dose 2 MG; Start 04/17/16 at 01:00 Zolpidem Tartrate (Ambien) 5 mg HS PRN PO INSOMNIA Last administered on 01:26; Admin Dose 5 MG; Start 04/17/16 at 01:00 Eye Lubricant 2 drop 2 drop Q6H PRN BOTH EYES DRY EYES Last administered on 02:13; Admin Dose 2 DROP; Start 04/17/16 at 19:00 Piperacillin Sod/ Tazobactam Sod (Zosyn 3.375gm/ 100 ml (Pmx)) 100 ml @ 200 mls /hr Q8 IVPB ; Start 04/18/16 at 14:00 Azithromycin (Zithromax) 1,200 mg Q7D PO ; Start 04/18/16 at 12:30 Trimethoprim/ Sulfamethoxazole (Bactrim (Ds)) 1 tab DAILY PO Last administered on 04/18/16 13:07; Admin Dose 1 TAB; Start 04/18/16 at 12:30 ILIA NGUYEN M.D. Apr 18, 2016 13:16 17at 01:26; Admin Dose 5 MG; Start 04/17/16 at 01:00 Eye Lubricant 2 drop 2 drop Q6H PRN BOTH EYES DRY EYES Last administered on 02:13; Admin Dose 2 DROP; Start 04/17/16 at 19:00 Piperacillin Sod/ Tazobactam Sod (Zosyn 3.375gm/ 100 ml (Pmx)) 100 ml @ 200 mls /hr Q8 IVPB ; Start 04/18/16 at 14:00 Azithromycin (Zithromax) 1,200 mg Q7D PO ; Start 04/18/16 at 12:30 Trimethoprim/ Sulfamethoxazole (Bactrim (Ds)) 1 tab DAILY PO Last administered on 04/18/16 13:07; Admin Dose 1 TAB; Start 04/18/16 at 12:30 ILIA NGUYEN M.D. Apr 18, 2016 13:16
[2016-04-18] MEDS: PIPER-TAZO 3.375 GM IV (PMX) 100 ML IVPB SCH ×2 (14:05→21:29)
[2016-04-18] MEDS: AZITHROMYCIN 600 MG TAB PO SCH (14:05)
[2016-04-18] MEDS ORDERED: SOD CHLORIDE 0.9% 100 ML ONE ×2 (16:08→16:27)
[2016-04-18] MEDS ORDERED: IOHEXOL 300MG/ML 150 ML BTL ONE ×2 (16:08→16:27)
--- NOTE | 2016-04-18 17:00 | RADRPT ---
PROCEDURE: CT of the left humerus with IV contrast CLINICAL INDICATION: Left upper extremity pain and weakness TECHNIQUE: CT scan of the left humerus was performed on a [employer] 64-slice scanner. 90 cc of Omnipaque-300 was administered. Coronal and sagittal reformatted images were obtained from the a xial source images. The CTDI is 17.94 mGy and the total exam DLP equals 788.41 mGy-cm. Images were r eviewed on a high-resolution PACS workstation. COMPARISON: None. FINDINGS: No acute fracture or dislocation is seen. The osseous structures are well mineralized. Degenerativ e changes are seen in the glenohumeral and acromioclavicular joints. No mass or fluid collection is identified. The lymph nodes are seen in the left cervical chain and supraclavicular space. The mo st prominent lymph node is seen in the left supraclavicular space measuring over 2 cm in short axis. Scattered subpleural blebs are seen. A millimeter nodule on the superior margin of the left lower l obe is seen on series 3 and image 220. A 3 mm nodule in the subpleural margin in the left lower lob e is seen on series 3 and image 228. No dense consolidation or pleural effusion in the visualized l sammy parenchyma is seen. Multiple left renal cysts are seen. IMPRESSION: 1. No CT evidence for a mass or fluid collection. 2. Prominent left cervical chain and supraclavicular lymph nodes which may be infectious/inflammato ry nature. The possibility of a neoplastic process cannot be excluded. Continued follow-up is kelton mmended. 3. Subcentimeter subpleural nodules in the left lower lobe as noted above. Recommendations Solid nodules Nodule size: = 4 mm - low risk patients: no follow-up needed - high risk patients: follow-up at 12 months and if no change, no further imaging needed Nodule size: 4-6 mm - low risk patients: follow-up at 12 months and if no change, no further imaging needed - high risk patients: initial follow-up CT at 6-12 months and then at 18-24 months if no change Nodule size: >6-8 mm - low risk patients: initial follow-up CT at 6-12 months and then at 18-24 months if no change - high risk patients: initial follow-up CT at 3-6 months and then at 9-12 and 24 months if no change Nodule size: >8 mm - either low or high risk patients - follow-up CTs at around 3, 9, and 24 months - dynamic contrast enhanced CT, PET, and/or biopsy Note: newly detected indeterminate nodule in persons 35 years of age or older. - low risk patients: minimal or absent history of smoking and or other known risk factors - high risk patients: history of smoking or of other known risk factors (e.g. first degree relative with lung cancer, or exposure to asbestos, radon, uranium) if a nodule up to 8 mm is partly solid or is ground glass further follow up is required after 24 mon ths to exclude possible slow growing adenocarcinoma ([place]) RPTAT: HPNM Physician Magan Date Time Electronically viewed and signed by Tony Ocasio Physician on 04/18/2016 17:00 /
--- NOTE | 2016-04-18 17:03 | RADRPT ---
PROCEDURE: CT CHEST WITH CONTRAST CLINICAL INDICATION: Neutropenic fever TECHNIQUE: Volumetrically acquired images of the thorax obtained with intravenous contrast were re formatted in the axial, coronal, and sagittal planes. CTDI = 13.0 mGy; DLP = 551 mGy-cm. 90 cc of O mnipaque was administered. One or more of the following dose reduction technique were used: Automat ic exposure control, adjustment of the mA and/or kV according to patient size, and use of iterative reconstruction technique. COMPARISON: 04/18/2015 chest x-ray. FINDINGS: LOWER NECK AND CHEST WALL: Normal. AIRWAYS: The trachea and large airways are normal. Mild bronchial wall thickening is seen. LUNGS: 86 mm subpleural nodule seen at the left lung base (series 4 image 98) a 5 mm nodule seen at the right lung base (series 4 image 93). No suspicious nodules, masses, or consolidation. PLEURA: Unremarkable. No pleural thickening or effusions. MEDIASTINUM: No mediastinal mass. LYMPH NODES: No significant axillary, hilar, or mediastinal lymphadenopathy by CT size criteria. CARDIAC: The heart size is normal. No pericardial effusion. VASCULAR: The aorta and main pulmonary artery are normal in caliber. Aortic and coronary atheroscl erotic calcifications are present. OSSEOUS: No suspicious osseous lesions. Scattered degenerative changes of the thoracic spine is vis ualized. Limited evaluation of the upper abdomen is unremarkable. IMPRESSION: 1. No intra-thoracic mass, lymphadenopathy, or focal acute consolidation. Mild bronchial wall thi ckening may be sequela of bronchitis, asthma, or other nonspecific airway inflammation. 2. Aortic and coronary atherosclerosis. 3. Benign appearing sub-centimeter nodule seen at the bilateral lung bases. Consider follow-up in 6-12 months to document stability. RPTAT:PP .Karel Barrett MD, Date Time Electronically viewed and signed by .Karel Barrett MD, MD on 04/18/2016 17:03 .V/
--- NOTE | 2016-04-18 19:10 | PN ---
Date/Time of Note Date/Time of Note DATE: 04/18/16 TIME: 19:02 Assessment/Plan VTE Prophylaxis VTE Prophylaxis Intervention: SCD's Lines/Catheters IV Catheter Type (from [facility]): [facility] Urinary Cath still in place: No Assessment/Plan Chief Complaint/Hosp Course Assessment and plan - AIDS, patient is not compliant with medication. Dr. Lady reese is following in infection disease consultation - Neutropenia and fever on admission. Patient is started on antibiotics for PCP prophylaxis. - Dysphagia with oral candidiasis, on fluconazole. - GNR UTI versus colonization - Anemia, Dr. Yoo is following in hematology oncology consultation. Pending bone marrow biopsy. -Chest pain on admission. Troponins negative 3. Dr. Silver is following in cardiology consultation. Further recommendations based on clinical course. Plan of care discussed with Dr. Walden. Problems: Subjective 24 Hr Interval Summary Free Text/Dictation Patient is status post CT of chest pain, denies any nausea vomiting. No fever today Exam/Review of Systems Vital Signs Vitals Vital Signs Date Time Temp Pulse Resp B/P Pulse Ox O2 Delivery O2 Flow Rate FiO2 04/18/16 07:16 98.4 68 20 143/89 100 04/17/16 08:00 Room Air Intake and Output 04/17/16 04/17/16 04/18/16 15:00 23:00 07:00 Intake Total 410 ml Output Total 1500 ml Balance -1090 ml Exam Constitutional: alert, oriented Psych: no complaints Head: atraumatic, normocephalic Eyes: nl conjunctiva ENMT: nl external ears & nose Neck: non-tender, supple Respiratory: clear to auscultation Cardiovascular: nl pulses, regular rate and rhythm Gastrointestinal: non-tender, soft Musculoskeletal: nl extremities to inspection Extremities: normal pulses 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 intact Results Result Diagram: 04/18/16 0505 04/18/16 0505 Results 24 hrs Laboratory Tests Test 04/18/16 00:35 04/18/16 05:05 Troponin I < 0.012 < 0.010 Anion Gap 14 Basophils # 0.0 Basophils % 2.0 Blood Urea Nitrogen 11 Calcium Level 8.7 Carbon Dioxide Level 25 Chloride Level 104 Creatinine 0.71 Eosinophils # 0.3 Eosinophils % 18.0 H Glucose Level 86 Hematocrit 37.6 L Hemoglobin 13.0 L Lymphocytes # 0.8 Lymphocytes % 47.0 Mean Corpuscular Hemoglobin 29.3 Mean Corpuscular Hemoglobin Concent 34.6 Mean Corpuscular Volume 84.7 Mean Platelet Volume 9.1 Monocytes # 0.4 Monocytes % 22.0 H Myelocytes # 0.0 Myelocytes % 1.0 H Neutrophils # 0.2 L Neutrophils % 10.0 L Nucleated Red Blood Cells # Nucleated Red Blood Cells % Platelet Count 216 Potassium Level 3.9 Red Blood Count 4.44 L Red Cell Distribution Width 14.2 Sodium Level 139 White Blood Count 1.6 L Medications Medications Current Medications Acetaminophen 650 mg 650 mg Q4H PRN PO PAIN AND OR ELEVATED TEMP Last administered on 04/18/16 13:05; Admin Dose 650 MG; Start 04/17/16 at 01:00 Fluconazole/ Sodium Chloride (Diflucan 100 Mg/ NS (Pmx)) 50 ml @ 50 mls/hr Q24H IVPB Last administered on 04/18/16 02:13; Admin Dose 50 MLS/HR; Start at 02:00 Enoxaparin Sodium (Lovenox) 40 mg DAILY SC Last administered on 04/18/16 09:40 ; Admin Dose 40 MG; Start 04/17/16 at 09:00 Acetaminophen/ Hydrocodone Bitart ([place] (5/325)) 1 tab Q4H PRN PO PAIN Last administered on 04/17/16 01:26; Admin Dose 1 TAB; Start 04/17/16 at 01:00 Morphine Sulfate (morphine) 2 mg Q4H PRN IV SEVERE PAIN Last administered on 18:36; Admin Dose 2 MG; Start 04/17/16 at 01:00 Zolpidem Tartrate (Ambien) 5 mg HS PRN PO INSOMNIA Last administered on 01:26; Admin Dose 5 MG; Start 04/17/16 at 01:00 Eye Lubricant 2 drop 2 drop Q6H PRN BOTH EYES DRY EYES Last administered on 18:46; Admin Dose 2 DROP; Start 04/17/16 at 19:00 Piperacillin Sod/ Tazobactam Sod (Zosyn 3.375gm/ 100 ml (Pmx)) 100 ml @ 200 mls /hr Q8 IVPB Last administered on 04/18/16 14:05; Admin Dose 200 MLS/HR; Start 04/18/16 at 14:00 Azithromycin (Zithromax) 1,200 mg Q7D PO Last administered on 04/18/16 14:05; Admin Dose 1,200 MG; Start 04/18/16 at 12:30 Trimethoprim/ Sulfamethoxazole (Bactrim (Ds)) 1 tab DAILY PO Last administered on 04/18/16 13:07; Admin Dose 1 TAB; Start 04/18/16 at 12:30 AAKASH MITCHELL Apr 18, 2016 19:10
[2016-04-18 20:11] VITALS: BP 119/84; RESP 18
[2016-04-19] MEDS: morphine 2 MG INJ IV PRN ×3 (02:33→21:49)
[2016-04-19] MEDS: FLUCONAZOLE 100 MG/NS (PMX) 50 ML IVPB SCH (02:33)
[2016-04-19] MEDS: ARTIFICIAL TEARS 15 ML OPH BOTH EYES PRN (02:34)
[2016-04-19] MEDS: PIPER-TAZO 3.375 GM IV (PMX) 100 ML IVPB SCH ×2 (06:42→14:24)
[2016-04-19 07:53] VITALS: BP 118/67; RESP 20
[2016-04-19] MEDS ORDERED: LIDOCAINE 1% (MDV) 20 ML INJ ONE (08:28)
[2016-04-19] MEDS ORDERED: MIDAZOLAM 1 MG/ML 2 ML INJ ONE (08:45)
[2016-04-19] MEDS ORDERED: SOD CHLORIDE 0.9% 500 ML ONE (08:46)
[2016-04-19] MEDS ORDERED: DIPHENHYDRAMINE 50 MG INJ ONE (08:46)
[2016-04-19] MEDS ORDERED: FENTAnyl 50 MCG/ML VIAL ONE (08:46)
[2016-04-19] MEDS: ENOXAPARIN 40 MG/0.4 ML SYG SC SCH (09:00)
[2016-04-19 09:30] VITALS: BP 116/78; PULSE 88; RESP 20
--- NOTE | 2016-04-19 09:44 | CONS ---
Date/Time of Note Date/Time of Note DATE: 04/19/16 TIME: 09:38 Assessment/Plan Assessment/Plan Chief Complaint/Hosp Course (Pt was in BMBx and I could not interview or examine him today) - AIDS, on-compliant with medications - neutropenia - fever on admission - cough on admission, CXR showed overinflated lungs, CT showed benign appearing sub-centimeter nodule seen at the bilateral lung bases - GNR in urine, likely colonization - LUE weakness and pain; CT showed L cervical and supraclavicular lymphadenopathy - thrush recommendations - pending results: cropto antigen, cocci serology, AFB blood cultures, CMV quantitative PCR, repeat Q TB gold - I ordered appropriate microbiological lab and cytology on Pt's Bx today. Pt's RN Giovany spoke with Emmanuel at CT and confirmed that his BMBx will be processed for these tests - additionally, I spoke with Dr. Welch to confirm that Pt's BMBx will be processed for AFB/parasitic/fungal/bacterial stain and cultures, viral inclusion bodies - for LUE weakness and pain: consider MRI of the LUE and C/T spines - continue pip/tazo (04/19/2016-) for Gram negative in urine; would treat even if it colonization because Pt's neutropenic - continue flucon for thrush - continue Bactrim and Azithromycin for PCP and MAC prophylaxis while waiting for CD4 count to come back - will request HIV genotype in the morning management d/w Pt's RN and Dr. Welch the total time I took to care for this today was from 1115 to 1200 Problems: Consultation Date/Type/Reason Admit Date/Time Apr 16, 2016 at 23:36 Initial Consult Date 04/18/16 Type of Consultation: ID Referring Provider: NAKIA LUNA MD Exam/Review of Systems Vital Signs Vitals Vital Signs Date Time Temp Pulse Resp B/P Pulse Ox O2 Delivery O2 Flow Rate FiO2 04/19/16 07:53 99.5 95 20 118/67 99 04/17/16 08:00 Room Air Intake and Output 04/18/16 04/18/16 04/19/16 15:00 23:00 07:00 Intake Total 1300 ml 50 ml Output Total 1500 ml 1000 ml Balance -200 ml -950 ml Results Result Diagram: 04/18/16 0505 04/18/16 0505 Medications Medications Current Medications Acetaminophen 650 mg 650 mg Q4H PRN PO PAIN AND OR ELEVATED TEMP Last administered on 04/18/16 13:05; Admin Dose 650 MG; Start 04/17/16 at 01:00 Fluconazole/ Sodium Chloride (Diflucan 100 Mg/ NS (Pmx)) 50 ml @ 50 mls/hr Q24H IVPB Last administered on 04/19/16 02:33; Admin Dose 50 MLS/HR; Start at 02:00 Enoxaparin Sodium (Lovenox) 40 mg DAILY SC Last administered on 04/18/16 09:40 ; Admin Dose 40 MG; Start 04/17/16 at 09:00 Acetaminophen/ Hydrocodone Bitart ([place] (5/325)) 1 tab Q4H PRN PO PAIN Last administered on 04/17/16 01:26; Admin Dose 1 TAB; Start 04/17/16 at 01:00 Morphine Sulfate (morphine) 2 mg Q4H PRN IV SEVERE PAIN Last administered on 06:42; Admin Dose 2 MG; Start 04/17/16 at 01:00 Zolpidem Tartrate (Ambien) 5 mg HS PRN PO INSOMNIA Last administered on 01:26; Admin Dose 5 MG; Start 04/17/16 at 01:00 Eye Lubricant 2 drop 2 drop Q6H PRN BOTH EYES DRY EYES Last administered on 02:34; Admin Dose 2 DROP; Start 04/17/16 at 19:00 Piperacillin Sod/ Tazobactam Sod (Zosyn 3.375gm/ 100 ml (Pmx)) 100 ml @ 200 mls /hr Q8 IVPB Last administered on 04/19/16 06:42; Admin Dose 200 MLS/HR; Start 04/18/16 at 14:00 Azithromycin (Zithromax) 1,200 mg Q7D PO Last administered on 04/18/16 14:05; Admin Dose 1,200 MG; Start 04/18/16 at 12:30 Trimethoprim/ Sulfamethoxazole (Bactrim (Ds)) 1 tab DAILY PO Last administered on 04/18/16 13:07; Admin Dose 1 TAB; Start 04/18/16 at 12:30 JACK LAIRD M.D. Apr 19, 2016 09:44
[2016-04-19 09:50] VITALS: BP 129/82; PULSE 88; RESP 20
[2016-04-19 09:55] VITALS: BP 122/79; PULSE 92; RESP 18
[2016-04-19 10:00] VITALS: BP 122/82; PULSE 92; RESP 20
--- NOTE | 2016-04-19 10:09 | RADRPT ---
PROCEDURE: CT guided bone marrow aspiration and left iliac bone biopsy. CLINICAL INDICATION: History of pancytopenia. HIV positive. TECHNIQUE: Informed consent was obtained. The procedure, risks, benefits, complications and alternatives were e xplained to the patient. Risks including bleeding and infection were explained. The patient understo od and was willing to proceed. A procedural pause was performed. The patient's name, date of , and procedure to be performed were verified. One or more of the following dose reduction techni ques were used: Automated exposure control, adjustment of the mA and/or kV according to patient size , use of iterative reconstruction technique. Using local anesthetic, sterile technique and CT guidance, an 11-gauge On Control bone biopsy needle was advanced into the left iliac bone via a posterior approach. Bone marrow aspiration was perform ed yielding approximately 12 ml. The bone biopsy needle was then advanced an additional 4 cm using the power drill device and tissue was obtained. Adequate tissue was obtained according to the patho logist present during the procedure. The needle was removed. A postprocedural scan was performed. A dressing was applied. The patient tolerated procedure well. COMPARISON: None. FINDINGS: Initial images demonstrate the tip of the needle at the posterior margin of the left iliac bone. Amanda bsequent images demonstrate the needle within the bone. Post biopsy images demonstrate no immediate complication. IMPRESSION: 1. Successful CT guided bone marrow aspiration and biopsy. RPTAT: QQ .Danish Whelan MD, MD Date Time Electronically viewed and signed by .Danish Whelan MD, on 04/19/2016 10:09 .R/
[2016-04-19] MEDS: TRIMETHOPRIM/SULFAMETHOX (DS) TAB PO SCH (11:30)
--- NOTE | 2016-04-19 12:12 | CONS ---
Date/Time of Note Date/Time of Note DATE: 04/19/16 TIME: 12:11 Assessment/Plan Assessment/Plan Chief Complaint/Hosp Course 66 yo male with HIV admitted for cough and dysphagia currently being treated for thrush and UTI who now presents with leukopenia and neutropenia. At this time, the most likely cause of the leukopenia is his underlying untreated HIV which is causing myelosuppressive effects. Furthermore patient's underlying infection could also be contributing to his anemia. Still HIV patients are at higher risk for malignancy and we need to rule out any underlying hematologic malignancy. Of ntoe a CT Chest was done which revealed mild bronchial wall thickening may be sequela of bronchitis, asthma, or other nonspecific airway inflammation -Bone Marrow Bx ordered. will follow up -will send bone marrow for cytology, and flow cytometry. Cultures have also been ordered in case of underlying bone marrow infection contributing to his neutropenia -will hold on Neupogen for now. if patient begins to spike fevers will consider adding it at that time. no obvious infection at this time Approximately 40 min were spent at patient's bedside and in coordination of his care Problems: Consultation Date/Type/Reason Admit Date/Time Apr 16, 2016 at 23:36 Initial Consult Date 04/18/16 Type of Consultation: Hematology Reason for Consultation neutropenia Referring Provider: NAKIA LUNA MD 24 HR Interval Summary Free Text/Dictation pt had bone marrow bx done this morning. no fevers. cough improved Exam/Review of Systems Vital Signs Vitals Vital Signs Date Time Temp Pulse Resp B/P Pulse Ox O2 Delivery O2 Flow Rate FiO2 04/19/16 07:53 99.5 95 20 118/67 99 04/17/16 08:00 Room Air Intake and Output 04/18/16 04/18/16 04/19/16 15:00 23:00 07:00 Intake Total 1300 ml 50 ml Output Total 1500 ml 1000 ml Balance -200 ml -950 ml Exam Constitutional: alert Psych: no complaints Head: atraumatic, normocephalic Eyes: nl conjunctiva ENMT: nl external ears & nose Neck: non-tender, supple Respiratory: clear to auscultation, normal air movement Cardiovascular: regular rate and rhythm Gastrointestinal: soft Musculoskeletal: nl extremities to inspection Extremities: normal pulses Results Result Diagram: 04/18/16 0505 04/18/16 0505 Medications Medications Current Medications Acetaminophen 650 mg 650 mg Q4H PRN PO PAIN AND OR ELEVATED TEMP Last administered on 04/18/16 13:05; Admin Dose 650 MG; Start 04/17/16 at 01:00 Fluconazole/ Sodium Chloride (Diflucan 100 Mg/ NS (Pmx)) 50 ml @ 50 mls/hr Q24H IVPB Last administered on 04/19/16 02:33; Admin Dose 50 MLS/HR; Start at 02:00 Enoxaparin Sodium (Lovenox) 40 mg DAILY SC Last administered on 04/18/16 09:40 ; Admin Dose 40 MG; Start 04/17/16 at 09:00 Acetaminophen/ Hydrocodone Bitart ([place] (5/325)) 1 tab Q4H PRN PO PAIN Last administered on 04/17/16 01:26; Admin Dose 1 TAB; Start 04/17/16 at 01:00 Morphine Sulfate (morphine) 2 mg Q4H PRN IV SEVERE PAIN Last administered on 06:42; Admin Dose 2 MG; Start 04/17/16 at 01:00 Zolpidem Tartrate (Ambien) 5 mg HS PRN PO INSOMNIA Last administered on 01:26; Admin Dose 5 MG; Start 04/17/16 at 01:00 Eye Lubricant 2 drop 2 drop Q6H PRN BOTH EYES DRY EYES Last administered on 02:34; Admin Dose 2 DROP; Start 04/17/16 at 19:00 Piperacillin Sod/ Tazobactam Sod (Zosyn 3.375gm/ 100 ml (Pmx)) 100 ml @ 200 mls /hr Q8 IVPB Last administered on 04/19/16 06:42; Admin Dose 200 MLS/HR; Start 04/18/16 at 14:00 Azithromycin (Zithromax) 1,200 mg Q7D PO Last administered on 04/18/16 14:05; Admin Dose 1,200 MG; Start 04/18/16 at 12:30 Trimethoprim/ Sulfamethoxazole (Bactrim (Ds)) 1 tab DAILY PO Last administered on 04/18/16 13:07; Admin Dose 1 TAB; Start 04/18/16 at 12:30 ILIA NGUYEN M.D. Apr 19, 2016 12:12
[2016-04-19 14:09] LABS: ADD SCAN DIFF NO
[2016-04-19 14:11] LABS: ABNORMAL IP MESSAGE 1; HEMATOCRIT 36.5 % (42.0-52.0); HEMOGLOBIN 12.6 g/dl (14.0-18.0); MEAN CORPUSCULAR HEMOGLOBIN 29.7 pg (29.0-33.0); MEAN CORPUSCULAR HGB CONC 34.5 g/dl (32.0-37.0); MEAN CORPUSCULAR VOLUME 86.1 fl (82.0-101.0); MEAN PLATELET VOLUME 9.2 fl (7.4-10.4); PLATELET COUNT 211 10^3/UL (140-415); RED BLOOD COUNT 4.24 10^6/ul (4.70-6.10); RED CELL DISTRIBUTION WIDTH 14.2 % (11.5-14.5); WHITE BLOOD COUNT 1.6 10^3/ul (4.8-10.8)
--- NOTE | 2016-04-19 16:19 | PN ---
Date/Time of Note Date/Time of Note DATE: 04/19/16 TIME: 16:18 Assessment/Plan VTE Prophylaxis VTE Prophylaxis Intervention: SCD's Lines/Catheters IV C[facility] Type (from [facility] Saline Lock Urinary Cath still in place: No Assessment/Plan Chief Complaint/Hosp Course Assessment and plan - AIDS, patient is not compliant with medication. Dr. Lady reese is following in infection disease consultation - Neutropenia and fever on admission. Patient is started on antibiotics for PCP prophylaxis. - Dysphagia with oral candidiasis, on fluconazole. - GNR UTI versus colonization - Anemia, Dr. Yoo is following in hematology oncology consultation. Pending bone marrow biopsy. -Chest pain on admission. Troponins negative 3. Dr. Silver is following in cardiology consultation. Further recommendations based on clinical course. Plan of care discussed with Dr. Walden. Problems: Subjective 24 Hr Interval Summary Free Text/Dictation Patient is sitting in bed eating lunch, patient's continues to have low-grade fever, denies nausea vomiting diarrhea. Exam/Review of Systems Vital Signs Vitals Vital Signs Date Time Temp Pulse Resp B/P Pulse Ox O2 Delivery O2 Flow Rate FiO2 04/19/16 12:16 98.8 04/19/16 07:53 95 20 118/67 99 04/17/16 08:00 Room Air Intake and Output 04/18/16 04/18/16 04/19/16 15:00 23:00 07:00 Intake Total 1300 ml 50 ml Output Total 1500 ml 1000 ml Balance -200 ml -950 ml Exam Constitutional: alert, oriented Psych: no complaints Head: atraumatic, normocephalic Eyes: nl conjunctiva ENMT: nl external ears & nose Neck: non-tender, supple Respiratory: clear to auscultation Cardiovascular: nl pulses, regular rate and rhythm Gastrointestinal: non-tender, soft Musculoskeletal: nl extremities to inspection Extremities: normal pulses Neurological: 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 II-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 intact Results Result Diagram: 04/19/16 1355 04/18/16 0505 Results 24 hrs Laboratory Tests Test 04/19/16 13:55 Hematocrit 36.5 L Hemoglobin 12.6 L Mean Corpuscular Hemoglobin 29.7 Mean Corpuscular Hemoglobin Concent 34.5 Mean Corpuscular Volume 86.1 Mean Platelet Volume 9.2 Platelet Count 211 Red Blood Count 4.24 L Red Cell Distribution Width 14.2 White Blood Count 1.6 L Medications Medications Current Medications Acetaminophen 650 mg 650 mg Q4H PRN PO PAIN AND OR ELEVATED TEMP Last administered on 04/18/16 13:05; Admin Dose 650 MG; Start 04/17/16 at 01:00 Fluconazole/ Sodium Chloride (Diflucan 100 Mg/ NS (Pmx)) 50 ml @ 50 mls/hr Q24H IVPB Last administered on 04/19/16 02:33; Admin Dose 50 MLS/HR; Start at 02:00 Enoxaparin Sodium (Lovenox) 40 mg DAILY SC Last administered on 04/18/16 09:40 ; Admin Dose 40 MG; Start 04/17/16 at 09:00 Acetaminophen/ Hydrocodone Bitart ([place] (5/325)) 1 tab Q4H PRN PO PAIN Last administered on 04/17/16 01:26; Admin Dose 1 TAB; Start 04/17/16 at 01:00 Morphine Sulfate (morphine) 2 mg Q4H PRN IV SEVERE PAIN Last administered on 06:42; Admin Dose 2 MG; Start 04/17/16 at 01:00 Zolpidem Tartrate (Ambien) 5 mg HS PRN PO INSOMNIA Last administered on 01:26; Admin Dose 5 MG; Start 04/17/16 at 01:00 Eye Lubricant 2 drop 2 drop Q6H PRN BOTH EYES DRY EYES Last administered on 02:34; Admin Dose 2 DROP; Start 04/17/16 at 19:00 Piperacillin Sod/ Tazobactam Sod (Zosyn 3.375gm/ 100 ml (Pmx)) 100 ml @ 200 mls /hr Q8 IVPB Last administered on 04/19/16 14:24; Admin Dose 200 MLS/HR; Start 04/18/16 at 14:00 Azithromycin (Zithromax) 1,200 mg Q7D PO Last administered on 04/18/16 14:05; Admin Dose 1,200 MG; Start 04/18/16 at 12:30 Trimethoprim/ Sulfamethoxazole (Bactrim (Ds)) 1 tab DAILY PO Last administered on 04/18/16 13:07; Admin Dose 1 TAB; Start 04/18/16 at 12:30 AAKASH MITCHELL Apr 19, 2016 16:19
[2016-04-19 17:22] LABS: EOSINOPHILS # 0.3 10^3/ul (0.0-0.5); LYMPHOCYTES # 0.6 10^3/ul (0.8-2.9); MONOCYTE # 0.4 10^3/ul (0.3-0.9); NEUTROPHIL # 0.3 10^3/ul (1.6-7.5)
[2016-04-19] MEDS: ACETAMINOPHEN 325 MG TAB PO PRN (19:05)
[2016-04-19 19:54] LABS: CRYPTOCOCCAL ANTIGEN - SOURCE Serum
[2016-04-19 20:00] VITALS: BP 115/65; PULSE 88; RESP 18
[2016-04-19] MEDS: DIPHENHYDRAMINE 50 MG INJ IV PRN (20:57)
[2016-04-19] MEDS: NYSTATIN SUSP 5 ML CUP PO SCH (20:57)
[2016-04-19] MEDS: SENNA TAB PO SCH (20:57)
[2016-04-19] MEDS ORDERED: BISACODYL (EC) 5 MG TAB PO ONE (21:00)
[2016-04-19] MEDS ORDERED: HYDROCORTISONE 100 MG INJ IV ONE (21:00)
[2016-04-19] MEDS: MEROPENEM 1 GM/100 ML (PMX) 100 ML IVPB SCH (22:59)
[2016-04-20] MEDS: FLUCONAZOLE 100 MG/NS (PMX) 50 ML IVPB SCH (02:54)
[2016-04-20] MEDS: morphine 2 MG INJ IV PRN ×3 (02:55→20:41)
[2016-04-20] MEDS: ARTIFICIAL TEARS 15 ML OPH BOTH EYES PRN ×3 (02:55→20:32)
[2016-04-20] MEDS: DIPHENHYDRAMINE 50 MG INJ IV PRN ×2 (04:04→20:41)
[2016-04-20] MEDS: MEROPENEM 1 GM/100 ML (PMX) 100 ML IVPB SCH ×3 (05:27→22:07)
[2016-04-20] MEDS: NYSTATIN SUSP 5 ML CUP PO SCH ×4 (09:08→20:31)
[2016-04-20] MEDS: SENNA TAB PO SCH ×2 (09:09→20:33)
[2016-04-20] MEDS: TRIMETHOPRIM/SULFAMETHOX (DS) TAB PO SCH (09:09)
[2016-04-20] MEDS: ENOXAPARIN 40 MG/0.4 ML SYG SC SCH (09:29)
[2016-04-20 10:12] LABS: ADD SCAN DIFF NO
[2016-04-20 10:13] LABS: ABNORMAL IP MESSAGE 1; HEMATOCRIT 37.1 % (42.0-52.0); HEMOGLOBIN 12.3 g/dl (14.0-18.0); MEAN CORPUSCULAR HEMOGLOBIN 28.9 pg (29.0-33.0); MEAN CORPUSCULAR HGB CONC 33.2 g/dl (32.0-37.0); MEAN CORPUSCULAR VOLUME 87.1 fl (82.0-101.0); MEAN PLATELET VOLUME 9.8 fl (7.4-10.4); PLATELET COUNT 209 10^3/UL (140-415); RED BLOOD COUNT 4.26 10^6/ul (4.70-6.10); RED CELL DISTRIBUTION WIDTH 14.6 % (11.5-14.5); WHITE BLOOD COUNT 0.7 10^3/ul (4.8-10.8)
[2016-04-20 11:07] LABS: LYMPHOCYTES # 0.3 10^3/ul (0.8-2.9); MONOCYTE # 0.2 10^3/ul (0.3-0.9); NEUTROPHIL # 0.1 10^3/ul (1.6-7.5)
--- NOTE | 2016-04-20 12:14 | CONS ---
Date/Time of Note Date/Time of Note DATE: 04/20/16 TIME: 12:06 Assessment/Plan Assessment/Plan Chief Complaint/Hosp Course assessment/impression - AIDS, on-compliant with medications - neutropenia - fever on admission, low grade temp 100F after BMBx-->at present afebrile - h/o cough on admission, resolved. CXR showed overinflated lungs, CT showed benign appearing sub-centimeter nodule seen at the bilateral lung bases - E. coli in urine, likely colonization - LUE weakness and pain; CT showed L cervical and supraclavicular lymphadenopathy - h/o thrush - pruritis after morphine so far: crypto antigen negative, recommendations - pending results: cocci serology, AFB blood culture (re-ordered), CMV quantitative PCR, repeat Q TB gold, Bx (path, bacterial/AFB/fungal/viral stain) , HIV genotype - for LUE weakness and pain: will plan of ordering MRI with contrast of the LUE and C/T spines when pruritis starts to resolve, hopefully tomorrow - continue meropenem (04/19/2016-) for neutropenic fever - continue flucon for thrush, changed from IV to PO - continue Bactrim and Azithromycin for PCP and MAC prophylaxis while waiting for CD4 count to come back management d/w Pt Problems: Consultation Date/Type/Reason Admit Date/Time Apr 16, 2016 at 23:36 Initial Consult Date 04/18/16 Type of Consultation: ID Referring Provider: NAKIA LUNA MD 24 HR Interval Summary Constitutional: no complaints Detailed Summary Eyes: no complaints ENT: no complaints Respiratory: no complaints Cardiovascular: no complaints Gastrointestinal: no complaints Genitourinary: no complaints Musculoskeletal: restricted range of motion (pain in LUE) Skin: pruritis (after receiving morphine) Neurologic: focal-weakness (LUE) Exam/Review of Systems Vital Signs Vitals Vital Signs Date Time Temp Pulse Resp B/P Pulse Ox O2 Delivery O2 Flow Rate FiO2 04/20/16 06:00 97.7 04/19/16 20:00 88 18 115/65 98 Room Air 04/19/16 10:00 2 Intake and Output 04/19/16 04/19/16 04/20/16 15:00 23:00 07:00 Intake Total 100 ml 100 ml 1250 ml Output Total 200 ml 1450 ml Balance -100 ml 100 ml -200 ml Exam Constitutional: alert, oriented, well developed Psych: nl mood/affect, no complaints Head: atraumatic, normocephalic Eyes: EOMI, PERRL, nl conjunctiva, nl lids, nl sclera ENMT: mucosa pink and moist, nl external ears & nose, nl lips & teeth, nl nasal mucosa & septum Neck: supple Respiratory: clear to auscultation, normal air movement Cardiovascular: nl pulses, regular rate and rhythm Gastrointestinal: soft Musculoskeletal: range of motion (LUE: limited to 135 degrees) Extremities: No edema Neurological: 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0 H Neutrophils # 0.3 L 0.1 L Neutrophils % 20.0 L 17.0 L Platelet Count 211 209 Red Blood Count 4.24 L 4.26 L Red Cell Distribution Width 14.2 14.6 H White Blood Count 1.6 L 0.7 #L Band Neutrophils % 4.0 Lactate Dehydrogenase 582 Metamyelocytes # 0.0 Metamyelocytes % 3.0 H Medications Medications Current Medications Acetaminophen 650 mg 650 mg Q4H PRN PO PAIN AND OR ELEVATED TEMP Last administered on 04/19/16t 19:05; Admin Dose 650 MG; Start 04/17/16 at 01:00 Fluconazole/ Sodium Chloride (Diflucan 100 Mg/ NS (Pmx)) 50 ml @ 50 mls/hr Q24H IVPB Last administered on 04/20/16 02:54; Admin Dose 50 MLS/HR; Start 04/17/16 at 02:00 Enoxaparin Sodium (Lovenox) 40 mg DAILY SC Last administered on 04/20/16 09:29 ; Admin Dose 40 MG; Start 04/17/16 at 09:00 Acetaminophen/ Hydrocodone Bitart ([place] (5/325)) 1 tab Q4H PRN PO PAIN Last administered on 04/17/16 01:26; Admin Dose 1 TAB; Start 04/17/16 at 01:00 Morphine Sulfate (morphine) 2 mg Q4H PRN IV SEVERE PAIN Last administered on 06:47; Admin Dose 2 MG; Start 04/17/16 at 01:00 Zolpidem Tartrate (Ambien) 5 mg HS PRN PO INSOMNIA Last administered on 01:26; Admin Dose 5 MG; Start 04/17/16 at 01:00 Eye Lubricant (Artificial Tears Oph) 2 drop Q6H PRN BOTH EYES DRY EYES Last administered on 04/20/16 09:10; Admin Dose 2 DROP; Start 04/17/16 at 19:00 Azithromycin (Zithromax) 1,200 mg Q7D PO Last administered on 04/18/16 14:05; Admin Dose 1,200 MG; Start 04/18/16 at 12:30 Trimethoprim/ Sulfamethoxazole (Bactrim (Ds)) 1 tab DAILY PO Last administered on 04/20/16 09:09; Admin Dose 1 TAB; Start 04/18/16 at 12:30 Diphenhydramine HCl (Benadryl) 25 mg Q6H PRN IV ITCHING Last administered on 04:04; Admin Dose 25 MG; Start 04/19/16 at 21:00 Senna (Senokot) 2 tab BID PO Last administered on 04/20/16 09:09; Admin Dose 2 TAB; Start 04/19/16 at 21:00 Nystatin 5 ml 5 ml QID PO Last administered on 04/20/16 09:08; Admin Dose 5 ML ; Start 04/19/16 at 21:00 Meropenem (Merrem 1 Gm/100 ml (Pmx)) 100 ml @ 200 mls/hr Q8 IVPB Last administered on 04/20/16t 05:27; Admin Dose 200 MLS/HR; Start 04/19/16 at 22:00 JACK LAIRD M.D. Apr 20, 2016 12:14
[2016-04-20] MEDS: FLUCONAZOLE 100 MG TAB PO SCH (13:46)
--- NOTE | 2016-04-20 16:05 | PN ---
Date/Time of Note Date/Time of Note DATE: 04/20/16 TIME: 16:01 Assessment/Plan VTE Prophylaxis VTE Prophylaxis Intervention: SCD's Lines/Catheters IV Catheter Type (from [facility]): Saline Lock Urinary Cath still in place: No Assessment/Plan Chief Complaint/Hosp Course Assessment and plan - AIDS, patient is not compliant with medication. Dr. Lady reese is following in infection disease consultation - Neutropenia and fever on admission. Continue antibiotics per ID. - Dysphagia with oral candidiasis, on fluconazole. - GNR UTI versus colonization - Anemia, Dr. Carias is following in hematology oncology consultation. Status post bone marrow biopsy, follow-up on bone marrow cytology. -Chest pain on admission. Troponins negative 3. Dr. Silver is following in cardiology consultation. Further recommendations based on clinical course. Plan of care discussed with Dr. Walden. Problems: Subjective 24 Hr Interval Summary Free Text/Dictation No fever nausea vomiting today. Status post both bone marrow biopsy yesterday. Exam/Review of Systems Vital Signs Vitals Vital Signs Date Time Temp Pulse Resp B/P Pulse Ox O2 Delivery O2 Flow Rate FiO2 04/20/16 06:00 97.7 04/19/16 20:00 88 18 115/65 98 Room Air 04/19/16 10:00 2 Intake and Output 04/19/16 04/19/16 04/20/16 15:00 23:00 07:00 Intake Total 100 ml 100 ml 1250 ml Output Total 200 ml 1450 ml Balance -100 ml 100 ml -200 ml Exam Constitutional: alert, oriented Psych: no complaints Head: atraumatic, normocephalic Eyes: nl conjunctiva ENMT: nl external ears & nose Neck: non-tender, supple Respiratory: clear to auscultation Cardiovascular: nl pulses, regular rate and rhythm Gastrointestinal: non-tender, soft Musculoskeletal: nl extremities to inspection Extremities: normal pulses Neurological: ENTRY CLERK II-XII intact Results Result Diagram: 04/20/16 0640 04/18/16 0505 Results 24 hrs Laboratory Tests Test 04/20/16 06:40 Band Neutrophils % 4.0 Basophils # Basophils % Eosinophils # 0.0 Eosinophils % 1.0 Hematocrit 37.1 L Hemoglobin 12.3 L Lactate Dehydrogenase 582 Lymphocytes # 0.3 L Lymphocytes % 49.0 Mean Corpuscular Hemoglobin 28.9 L Mean Corpuscular Hemoglobin Concent 33.2 Mean Corpuscular Volume 87.1 Mean Platelet Volume 9.8 Metamyelocytes # 0.0 Metamyelocytes % 3.0 H Monocytes # 0.2 L Monocytes % 26.0 H Neutrophils # 0.1 L Neutrophils % 17.0 L Platelet Count 209 Red Blood Count 4.26 L Red Cell Distribution Width 14.6 H White Blood Count 0.7 #L Medications Medications Current Medications Acetaminophen (Tylenol Tab) 650 mg Q4H PRN PO PAIN AND OR ELEVATED TEMP Last administered on 04/19/16 19:05; Admin Dose 650 MG; Start 04/17/16 at 01:00 Enoxaparin Sodium (Lovenox) 40 mg DAILY SC Last administered on 04/20/16 09:29 ; Admin Dose 40 MG; Start 04/17/16 at 09:00 Acetaminophen/ Hydrocodone Bitart ([place] (5/325)) 1 tab Q4H PRN PO PAIN Last administered on 04/17/16 01:26; Admin Dose 1 TAB; Start 04/17/16 at 01:00 Morphine Sulfate (morphine) 2 mg Q4H PRN IV SEVERE PAIN Last administered on 06:47; Admin Dose 2 MG; Start 04/17/16 at 01:00 Zolpidem Tartrate (Ambien) 5 mg HS PRN PO INSOMNIA Last administered on 01:26; Admin Dose 5 MG; Start 04/17/16 at 01:00 Eye Lubricant (Artificial Tears Oph) 2 drop Q6H PRN BOTH EYES DRY EYES Last administered on 04/20/16 09:10; Admin Dose 2 DROP; Start 04/17/16 at 19:00 Azithromycin (Zithromax) 1,200 mg Q7D PO Last administered on 04/18/16 14:05; Admin Dose 1,200 MG; Start 04/18/16 at 12:30 Diphenhydramine HCl (Benadryl) 25 mg Q6H PRN IV ITCHING Last administered on 04:04; Admin Dose 25 MG; Start 04/19/16 at 21:00 Senna (Senokot) 2 tab BID PO Last administered on 04/20/16 09:09; Admin Dose 2 TAB; Start 04/19/16 at 21:00 Nystatin 5 ml 5 ml QID PO Last administered on 04/20/16 13:46; Admin Dose 5 ML ; Start 04/19/16 at 21:00 Meropenem (Merrem 1 Gm/100 ml (Pmx)) 100 ml @ 200 mls/hr Q8 IVPB Last administered on 04/20/16 13:46; Admin Dose 200 MLS/HR; Start 04/19/16 at 22:00 Fluconazole (Diflucan) 100 mg DAILY PO Last administered on 04/20/16 13:46; Admin Dose 100 MG; Start 04/20/16 at 12:30 Atovaquone (Mepron) 1,500 mg DAILY PO ; Start 04/21/16 at 09:00 AAKASH MITCHELL Apr 20, 2016 16:05
[2016-04-20 20:03] VITALS: BP 93/88; PULSE 81; RESP 18
[2016-04-20 20:52] VITALS: BP 137/88; RESP 18
[2016-04-21] MEDS: MEROPENEM 1 GM/100 ML (PMX) 100 ML IVPB SCH ×3 (05:39→22:18)
--- NOTE | 2016-04-21 07:27 | CONS ---
Date/Time of Note Date/Time of Note DATE: 04/21/16 TIME: 07:23 Assessment/Plan Assessment/Plan Chief Complaint/Hosp Course assessment/impression - AIDS, on-compliant with medications - neutropenia - fever on admission, low grade temp 100F after BMBx-->at present afebrile - h/o cough on admission, resolved. CXR showed overinflated lungs, CT showed benign appearing sub-centimeter nodule seen at the bilateral lung bases - E. coli in urine, likely colonization - LUE weakness and pain; CT showed L cervical and supraclavicular lymphadenopathy - h/o thrush - pruritis after morphine so far: crypto antigen negative, recommendations - pending results: cocci serology, AFB blood culture (re-ordered), CMV quantitative PCR, repeat Q TB gold, Bx (path, bacterial/AFB/fungal/viral stain) , HIV genotype - repeat HIV viral load and CD4 count, will order HIV EIA and western blot for documentation of HIV+ status in our EMR - for LUE weakness and pain: ordered MRI with contrast of the LUE and C/T spines today - discussed with Dr. Welch on 04/20/2016: so far no e/o opportunistic infection or malignancy in bone marrow. 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 Problems: Consultation Date/Type/Reason Admit Date/Time Apr 16, 2016 at 23:36 Initial Consult Date 04/18/16 Type of Consultation: ID Referring Provider: NAKIA LUNA MD 24 HR Interval Summary Constitutional: no complaints Detailed Summary Eyes: no complaints ENT: no complaints Respiratory: no complaints Cardiovascular: no complaints Gastrointestinal: no complaints Genitourinary: no complaints Musculoskeletal: bone/joint pain (LUE), restricted range of motion (LUE) Skin: no complaints, No pruritis, No rash Neurologic: focal-weakness (LUE and L hand) Exam/Review of Systems Vital Signs Vitals Vital Signs Date Time Temp Pulse Resp B/P Pulse Ox O2 Delivery O2 Flow Rate FiO2 04/20/16 20:52 98.6 81 18 137/88 99 04/20/16 20:03 Room Air 04/19/16 10:00 2 Intake and Output 04/20/16 04/20/16 04/21/16 15:00 23:00 07:00 Intake Total 900 ml 300 ml Output Total 1050 ml 850 ml Balance -150 ml -550 ml Exam Constitutional: frail Psych: nl mood/affect, no complaints Head: atraumatic, normocephalic Eyes: nl conjunctiva, nl lids ENMT: nl external ears & nose, nl nasal mucosa & septum Neck: supple Respiratory: clear to auscultation, normal air movement Musculoskeletal: muscle weakness (4/5 of LUE and L hand), range of motion ( cannot abduct completely), spine non-tender, No swelling Extremities: No edema Neurological: focal weakness (4/5 of LUE and L hand) Skin: nl turgor, No rash or lesions Results Result Diagram: 04/20/16 0640 04/18/16 0505 Medications Medications Current Medications Acetaminophen (Tylenol Tab) 650 mg Q4H PRN PO PAIN AND OR ELEVATED TEMP Last administered on 04/19/16 19:05; Admin Dose 650 MG; Start 04/17/16 at 01:00 Enoxaparin Sodium (Lovenox) 40 mg DAILY SC Last administered on 04/20/16 09:29 ; Admin Dose 40 MG; Start 04/17/16 at 09:00 Acetaminophen/ Hydrocodone Bitart ([place] (5/325)) 1 tab Q4H PRN PO PAIN Last administered on 04/17/16 01:26; Admin Dose 1 TAB; Start 04/17/16 at 01:00 Morphine Sulfate (morphine) 2 mg Q4H PRN IV SEVERE PAIN Last administered on 20:41; Admin Dose 2 MG; Start 04/17/16 at 01:00 Zolpidem Tartrate (Ambien) 5 mg HS PRN PO INSOMNIA Last administered on 01:26; Admin Dose 5 MG; Start 04/17/16 at 01:00 Eye Lubricant (Artificial Tears Oph) 2 drop Q6H PRN BOTH EYES DRY EYES Last administered on 04/20/16 20:32; Admin Dose 2 DROP; Start 04/17/16 at 19:00 Azithromycin (Zithromax) 1,200 mg Q7D PO Last administered on 04/18/16 14:05; Admin Dose 1,200 MG; Start 04/18/16 at 12:30 Diphenhydramine HCl (Benadryl) 25 mg Q6H PRN IV ITCHING Last administered on 20:41; Admin Dose 25 MG; Start 04/19/16 at 21:00 Senna (Senokot) 2 tab BID PO Last administered on 04/20/16 09:09; Admin Dose 2 TAB; Start 04/19/16 at 21:00 Nystatin 5 ml 5 ml QID PO Last administered on 04/20/16 20:31; Admin Dose 5 ML ; Start 04/19/16 at 21:00 Meropenem (Merrem 1 Gm/100 ml (Pmx)) 100 ml @ 200 mls/hr Q8 IVPB Last administered on 04/21/16 05:39; Admin Dose 200 MLS/HR; Start 04/19/16 at 22:00 Fluconazole (Diflucan) 100 mg DAILY PO Last administered on 04/20/16 13:46; Admin Dose 100 MG; Start 04/20/16 at 12:30 Atovaquone (Mepron) 1,500 mg DAILY PO ; Start 04/21/16 at 09:00 JACK LAIRD M.D. Apr 21, 2016 07:27
[2016-04-21 07:46] VITALS: BP 130/86; RESP 18
[2016-04-21 08:21] LABS: ABNORMAL IP MESSAGE 1; ADD SCAN DIFF NO; HEMATOCRIT 37.5 % (42.0-52.0); HEMOGLOBIN 12.6 g/dl (14.0-18.0); MEAN CORPUSCULAR HEMOGLOBIN 29.2 pg (29.0-33.0); MEAN CORPUSCULAR HGB CONC 33.6 g/dl (32.0-37.0); MEAN PLATELET VOLUME 9.2 fl (7.4-10.4); PLATELET COUNT 209 10^3/UL (140-415); RED BLOOD COUNT 4.31 10^6/ul (4.70-6.10); RED CELL DISTRIBUTION WIDTH 14.4 % (11.5-14.5); WHITE BLOOD COUNT 1.5 10^3/ul (4.8-10.8)
[2016-04-21 08:34] LABS: ALBUMIN 3.5 g/dl (3.3-4.9); CHLORIDE 105 mmol/L (97-110); SODIUM 141 mmol/L (135-144)
[2016-04-21 08:35] LABS: POTASSIUM 4.3 mmol/L (3.5-5.1)
[2016-04-21 08:37] LABS: ALANINE AMINOTRANSFERASE 36 IU/L (13-69); ALBUMIN/GLOBULIN RATIO 0.92; ALKALINE PHOSPHATASE 86 IU/L (42-121); ANION GAP 13 (8-16); ASPARTATE AMINO TRANSFERASE 42 IU/L (15-46); BILIRUBIN,INDIRECT 0.1 mg/dl (0-1.1); BILIRUBIN,TOTAL 0.1 mg/dl (0.2-1.3); BLOOD UREA NITROGEN 13 mg/dl (7-20); CARBON DIOXIDE 27 mmol/L (21-31); TOTAL PROTEIN 7.3 g/dl (6.1-8.1)
[2016-04-21 08:38] LABS: CALCIUM 8.7 mg/dl (8.4-10.2); GLUCOSE 80 mg/dl (70-220)
[2016-04-21] MEDS: SENNA TAB PO SCH ×2 (08:49→21:00)
[2016-04-21] MEDS: NYSTATIN SUSP 5 ML CUP PO SCH ×4 (08:49→20:07)
[2016-04-21] MEDS: FLUCONAZOLE 100 MG TAB PO SCH (08:49)
[2016-04-21] MEDS: ATOVAQUONE 750 MG/5 ML CUP PO SCH (08:49)
[2016-04-21] MEDS: DIPHENHYDRAMINE 50 MG INJ IV PRN (08:49)
[2016-04-21] MEDS: ARTIFICIAL TEARS 15 ML OPH BOTH EYES PRN (08:51)
[2016-04-21] MEDS: morphine 2 MG INJ IV PRN ×2 (09:02→20:08)
[2016-04-21 09:13] LABS: INFLUENZA VIRUS A/B SOURCE NASOPHARYNGEAL
[2016-04-21] MEDS: ENOXAPARIN 40 MG/0.4 ML SYG SC SCH (09:24)
[2016-04-21 10:56] LABS: EOSINOPHILS # 0.5 10^3/ul (0.0-0.5); LYMPHOCYTES # 0.6 10^3/ul (0.8-2.9); MONOCYTE # 0.2 10^3/ul (0.3-0.9); NEUTROPHIL # 0.2 10^3/ul (1.6-7.5)
--- NOTE | 2016-04-21 12:37 | RADRPT ---
PROCEDURE: MRI Thoracic spine with and without contrast CLINICAL INDICATION: Back pain TECHNIQUE: An MRI of the thoracic spine was performed on a high resolution MRI scanner utilizing t he following sequences: Sagittal and axial T1 weighted, sagittal and axial T2 weighted, and sagitta l STIR. Additional post contrast sequences were acquired after the intravenous administration of 1 0 cc ProHance. There were no reported complications. COMPARISON: Correlation chest CT 04/18/2016 FINDINGS: Normal alignment. No acute vertebral compression fracture. Multilevel thoracic vertebral osteophytes are identified. The thoracic cord demonstrates normal contour and signal intensity. No significant disk protrusion, spinal canal or foraminal stenosis. No abnormal intraspinal mass or intraspinal enhancement. IMPRESSION: Mild thoracic degenerative changes. No evidence of cord edema or cord compression. No significant spinal canal stenosis. No acute compression fracture. RPTAT: AA .Keith Garcia MD, Date Time Electronically viewed and signed by .Keith Garcia MD, on 04/21/2016 12:36 .T/
--- NOTE | 2016-04-21 12:40 | RADRPT ---
PROCEDURE: MRI Cervical spine without and with contrast CLINICAL INDICATION: pain, weakness TECHNIQUE: An MRI of the cervical spine was performed utilizing the following sequences: Sagittal and axial T1 weighted, sagittal and axial T2 weighted, axial GRE, and sagittal T2 weighted with fat saturation. Additional post contrast sequences were acquired. 10 cc ProHance was administered intra venously without reported complication. COMPARISON: none FINDINGS: No acute vertebral compression fracture. No diffuse marrow replacing process. The cervical cord demonstrates normal signal intensity. C2-3: The disk is preserved height. Left uncovertebral osteophyte with minimal left foraminal narr owing. Facet arthropathy. No significant spinal canal stenosis. C3-4: The disk is preserved height. 3 mm central disk protrusion with mild spinal canal stenosis. Uncovertebral osteophytes and facet arthropathy with mild right foraminal narrowing. C4-5: The disk is preserved height. 1 mm disk bulge with borderline, mild spinal canal narrowing. Uncovertebral osteophytes and facet arthropathy cause mild right foraminal narrowing. C5-6: Mild disk height loss. 3 mm broad disk osteophyte complex with mild spinal canal stenosis. U ncovertebral osteophytes and facet arthropathy cause mild bilateral foraminal narrowing. C6-7: Moderate disk height loss. 4 mm right central disk osteophyte complex effaces the ventral thec al sac and indents the anterior cord surface. There is moderate spinal canal stenosis. The AP thec al sac diameter measures 7 mm. Uncovertebral osteophytes and facet arthropathy cause mild left and severe right foraminal stenosis. C7-T1: The disk is preserved height. Uncovertebral osteophytes and facet arthropathy with mild lef t foraminal narrowing. No significant spinal canal stenosis. Paraspinal soft tissues are unremarkable. No enhancing intraspinal mass. IMPRESSION: C6-7: Moderate discogenic disease. 4 mm right central disk osteophyte complex effaces the ventral t hecal sac and indents the anterior cord surface. There is moderate spinal canal stenosis. Uncovert ebral osteophytes and facet arthropathy cause mild left and severe right foraminal stenosis. Mild discogenic disease C5-6. No evidence of cord edema. No intraspinal enhancing mass identified See details in the findings. RPTAT: AA .Keith Garcia MD, MD Date Time Electronically viewed and signed by .Keith Garcia MD, on 04/21/2016 12:39 .T/
--- NOTE | 2016-04-21 12:42 | CONS ---
Date/Time of Note Date/Time of Note DATE: 04/21/16 TIME: 12:38 Assessment/Plan Assessment/Plan Chief Complaint/Hosp Course 66 yo male with HIV admitted for cough and dysphagia currently being treated for thrush and UTI who now presents with leukopenia and neutropenia. Bone Marrow bx was done which shows no evidence of leukemia or other hematologic malignancy. It does show drecreased in maturation of the granulcytes which is consistent with HIV effect on the bone marrow. -continue infectious disease workup for underlying opportunistic infection -will hold on Neupogen for now. if patient begins to spike fevers will consider adding it at that time. no obvious infection at this time -given there is no evidence of leukemia nor hematologic malignancy,will sign off for now -please feel free to call with any further questions Approximately 40 min were spent at patient's bedside and in coordination of his care Problems: Consultation Date/Type/Reason Admit Date/Time Apr 16, 2016 at 23:36 Initial Consult Date 04/18/16 Type of Consultation: Hematology Reason for Consultation neutropenia Referring Provider: NAKIA LUNA MD 24 HR Interval Summary Free Text/Dictation no acute overnight evens. no fevers Exam/Review of Systems Vital Signs Vitals Vital Signs Date Time Temp Pulse Resp B/P Pulse Ox O2 Delivery O2 Flow Rate FiO2 04/21/16 07:46 98.2 69 18 130/86 97 04/20/16 20:03 Room Air 04/19/16 10:00 2 Intake and Output 04/20/16 04/20/16 04/21/16 15:00 23:00 07:00 Intake Total 900 ml 300 ml Output Total 1050 ml 850 ml Balance -150 ml -550 ml Exam Constitutional: alert Psych: nl mood/affect, no complaints Head: normocephalic Eyes: nl conjunctiva ENMT: nl external ears & nose Neck: non-tender, supple Respiratory: clear to auscultation, normal air movement Cardiovascular: regular rate and rhythm Gastrointestinal: soft Musculoskeletal: nl extremities to inspection, nl gait and stance Extremities: normal pulses Results Result Diagram: 04/21/16 0750 04/21/16 0750 Results 24 hrs Laboratory Tests Test 04/21/16 07:50 Alanine Aminotransferase (ALT/SGPT) 36 Albumin 3.5 Albumin/Globulin Ratio 0.92 Alkaline Phosphatase 86 Anion Gap 13 Aspartate Amino Transf (AST/SGOT) 42 Band Neutrophils % 3.0 Blood Urea Nitrogen 13 Calcium Level 8.7 Carbon Dioxide Level 27 Chloride Level 105 Creatinine 0.80 Direct Bilirubin 0.00 Eosinophils # 0.5 Eosinophils % 36.0 H Globulin 3.80 H Glucose Level 80 HIV (1&2) Antibody REACTIVE H Hematocrit 37.5 L Hemoglobin 12.6 L Indirect Bilirubin 0.1 Lymphocytes # 0.6 L Lymphocytes % 37.0 Mean Corpuscular Hemoglobin 29.2 Mean Corpuscular Hemoglobin Concent 33.6 Mean Corpuscular Volume 87.0 Mean Platelet Volume 9.2 Monocytes # 0.2 L Monocytes % 13.0 H Neutrophils # 0.2 L Neutrophils % 11.0 L Platelet Count 209 Potassium Level 4.3 Red Blood Count 4.31 L Red Cell Distribution Width 14.4 Sodium Level 141 Total Bilirubin 0.1 L Total Protein 7.3 White Blood Count 1.5 #L Medications Medications Current Medications Acetaminophen (Tylenol Tab) 650 mg Q4H PRN PO PAIN AND OR ELEVATED TEMP Last administered on 04/19/16 19:05; Admin Dose 650 MG; Start 04/17/16 at 01:00 Enoxaparin Sodium (Lovenox) 40 mg DAILY SC Last administered on 04/21/16 09:24 ; Admin Dose 40 MG; Start 04/17/16 at 09:00 Acetaminophen/ Hydrocodone Bitart ([place] (5/325)) 1 tab Q4H PRN PO PAIN Last administered on 04/17/16 01:26; Admin Dose 1 TAB; Start 04/17/16 at 01:00 Morphine Sulfate (morphine) 2 mg Q4H PRN IV SEVERE PAIN Last administered on 09:02; Admin Dose 2 MG; Start 04/17/16 at 01:00 Zolpidem Tartrate (Ambien) 5 mg HS PRN PO INSOMNIA Last administered on 01:26; Admin Dose 5 MG; Start 04/17/16 at 01:00 Eye Lubricant (Artificial Tears Oph) 2 drop Q6H PRN BOTH EYES DRY EYES Last administered on 04/21/16 08:51; Admin Dose 2 DROP; Start 04/17/16 at 19:00 Azithromycin (Zithromax) 1,200 mg Q7D PO Last administered on 2/27/17at 14:05; Admin Dose 1,200 MG; Start 04/18/16 at 12:30 Diphenhydramine HCl (Benadryl) 25 mg Q6H PRN IV ITCHING Last administered on 08:49; Admin Dose 25 MG; Start 04/19/16 at 21:00 Senna (Senokot) 2 tab BID PO Last administered on 04/21/16 08:49; Admin Dose 2 TAB; Start 04/19/16 at 21:00 Nystatin 5 ml 5 ml QID PO Last administered on 04/21/16 08:49; Admin Dose 5 ML ; Start 04/19/16 at 21:00 Meropenem (Merrem 1 Gm/100 ml (Pmx)) 100 ml @ 200 mls/hr Q8 IVPB Last administered on 04/21/16 05:39; Admin Dose 200 MLS/HR; Start 04/19/16 at 22:00 Fluconazole (Diflucan) 100 mg DAILY PO Last administered on 04/21/16 08:49; Admin Dose 100 MG; Start 04/20/16 at 12:30 Atovaquone (Mepron) 1,500 mg DAILY PO Last administered on 04/21/16 08:49; Admin Dose 1,500 MG; Start 04/21/16 at 09:00 ILIA NGUYEN M.D. Apr 21, 2016 12:42
[2016-04-21 12:51] LABS: TB-NIL <0.00 IU/mL
--- NOTE | 2016-04-21 13:58 | PN ---
Date/Time of Note Date/Time of Note DATE: 04/21/16 TIME: 13:55 Assessment/Plan VTE Prophylaxis VTE Prophylaxis Intervention: SCD's Lines/Catheters IV [facility] Urinary Cath still in place: No Assessment/Plan Assessment/Plan -Chest pain on admission. Troponins negative 3. None at present - Dr. Silver is following in cardiology consultation. - AIDS, patient is not compliant with medication. - per Dr. Narayanan in infection disease consultation - Neutropenia and fever on admission. Continue antibiotics per ID. - Dysphagia with oral candidiasis, on fluconazole. - GNR UTI versus colonization - Anemia - peer Dr. Carias in hematology oncology consultation. Status post bone marrow biopsy, follow-up on bone marrow cytology. Further recommendations based on clinical course. Plan of care discussed with Dr. Walden. Subjective 24 Hr Interval Summary Eyes: no complaints ENT: no complaints Respiratory: shortness of breath Cardiovascular: no complaints Gastrointestinal: no complaints Genitourinary: no complaints Musculoskeletal: no complaints Skin: no complaints Neurologic: no complaints Endocrine: no complaints Lymphatic: no complaints Psychological: no complaints Immunologic: no complaints Exam/Review of Systems Vital Signs Vitals Vital Signs Date Time Temp Pulse Resp B/P Pulse Ox O2 Delivery O2 Flow Rate FiO2 04/21/16 07:46 98.2 69 18 130/86 97 04/20/16 20:03 Room Air 04/19/16 10:00 2 Intake and Output 04/20/16 04/20/16 04/21/16 15:00 23:00 07:00 Intake Total 900 ml 300 ml Output Total 1050 ml 850 ml Balance -150 ml -550 ml Exam Constitutional: alert, oriented, well developed Psych: no complaints Head: atraumatic Eyes: EOMI, nl sclera ENMT: nl external ears & nose Neck: non-tender Respiratory: clear to auscultation Cardiovascular: nl pulses Gastrointestinal: non-tender, soft Musculoskeletal: nl extremities to inspection Extremities: normal pulses Neurological: nl mental status, nl speech Skin: nl turgor Lymph: nontender Results Result Diagram: 04/21/16 0750 04/21/16 0750 Results 24 hrs Laboratory Tests Test 04/21/16 07:50 Alanine Aminotransferase (ALT/SGPT) 36 Albumin 3.5 Albumin/Globulin Ratio 0.92 Alkaline Phosphatase 86 Anion Gap 13 Aspartate Amino Transf (AST/SGOT) 42 Band Neutrophils % 3.0 Blood Urea Nitrogen 13 Calcium Level 8.7 Carbon Dioxide Level 27 Chloride Level 105 Creatinine 0.80 Direct Bilirubin 0.00 Eosinophils # 0.5 Eosinophils % 36.0 H Globulin 3.80 H Glucose Level 80 HIV (1&2) Antibody REACTIVE H Hematocrit 37.5 L Hemoglobin 12.6 L Indirect Bilirubin 0.1 Lymphocytes # 0.6 L Lymphocytes % 37.0 Mean Corpuscular Hemoglobin 29.2 Mean Corpuscular Hemoglobin Concent 33.6 Mean Corpuscular Volume 87.0 Mean Platelet Volume 9.2 Monocytes # 0.2 L Monocytes % 13.0 H Neutrophils # 0.2 L Neutrophils % 11.0 L Platelet Count 209 Potassium Level 4.3 Red Blood Count 4.31 L Red Cell Distribution Width 14.4 Sodium Level 141 Total Bilirubin 0.1 L Total Protein 7.3 White Blood Count 1.5 #L Medications Medications Current Medications Acetaminophen (Tylenol Tab) 650 mg Q4H PRN PO PAIN AND OR ELEVATED TEMP Last administered on 04/19/16 19:05; Admin Dose 650 MG; Start 04/17/16 at 01:00 Enoxaparin Sodium (Lovenox) 40 mg DAILY SC Last administered on 04/21/16 09:24 ; Admin Dose 40 MG; Start 04/17/16 at 09:00 Acetaminophen/ Hydrocodone Bitart ([place] (5/325)) 1 tab Q4H PRN PO PAIN Last administered on 04/17/16 01:26; Admin Dose 1 TAB; Start 04/17/16 at 01:00 Morphine Sulfate (morphine) 2 mg Q4H PRN IV SEVERE PAIN Last administered on 09:02; Admin Dose 2 MG; Start 04/17/16 at 01:00 Zolpidem Tartrate (Ambien) 5 mg HS PRN PO INSOMNIA Last administered on 01:26; Admin Dose 5 MG; Start 04/17/16 at 01:00 Eye Lubricant (Artificial Tears Oph) 2 drop Q6H PRN BOTH EYES DRY EYES Last administered on 04/21/16 08:51; Admin Dose 2 DROP; Start 04/17/16 at 19:00 Azithromycin (Zithromax) 1,200 mg Q7D PO Last administered on 04/18/16 14:05; Admin Dose 1,200 MG; Start 04/18/16 at 12:30 Diphenhydramine HCl (Benadryl) 25 mg Q6H PRN IV ITCHING Last administered on 08:49; Admin Dose 25 MG; Start 04/19/16 at 21:00 Senna (Senokot) 2 tab BID PO Last administered on 04/21/16 08:49; Admin Dose 2 TAB; Start 04/19/16 at 21:00 Nystatin 5 ml 5 ml QID PO Last administered on 04/21/16 13:43; Admin Dose 5 ML ; Start 04/19/16 at 21:00 Meropenem (Merrem 1 Gm/100 ml (Pmx)) 100 ml @ 200 mls/hr Q8 IVPB Last administered on 04/21/16 13:43; Admin Dose 200 MLS/HR; Start 04/19/16 at 22:00 Fluconazole (Diflucan) 100 mg DAILY PO Last administered on 04/21/16 08:49; Admin Dose 100 MG; Start 04/20/16 at 12:30 Atovaquone (Mepron) 1,500 mg DAILY PO Last administered on 04/21/16 08:49; Admin Dose 1,500 MG; Start 04/21/16 at 09:00 Procedures Procedures PROCEDURE: MRI Cervical spine without and with contrast CLINICAL INDICATION: pain, weakness TECHNIQUE: An MRI of the cervical spine was performed utilizing the following sequences: Sagittal and axial T1 weighted, sagittal and axial T2 weighted, axial GRE, and sagittal T2 weighted with fat saturation. Additional post contrast sequences were acquired. 10 cc ProHance was administered intravenously without reported complication. COMPARISON: none FINDINGS: No acute vertebral compression fracture. No diffuse marrow replacing process. The cervical cord demonstrates normal signal intensity. C2-3: The disk is preserved height. Left uncovertebral osteophyte with minimal left foraminal narrowing. Facet arthropathy. No significant spinal canal stenosis. C3-4: The disk is preserved height. 3 mm central disk protrusion with mild spinal canal stenosis. Uncovertebral osteophytes and facet arthropathy with mild right foraminal narrowing. C4-5: The disk is preserved height. 1 mm disk bulge with borderline, mild spinal canal narrowing. Uncovertebral osteophytes and facet arthropathy cause mild right foraminal narrowing. C5-6: Mild disk height loss. 3 mm broad disk osteophyte complex with mild spinal canal stenosis. Uncovertebral osteophytes and facet arthropathy cause mild bilateral foraminal narrowing. C6-7: Moderate disk height loss. 4 mm right central disk osteophyte complex effaces the ventral thecal sac and indents the anterior cord surface. There is moderate spinal canal stenosis. The AP thecal sac diameter measures 7 mm. Uncovertebral osteophytes and facet arthropathy cause mild left and severe right foraminal stenosis. C7-T1: The disk is preserved height. Uncovertebral osteophytes and facet arthropathy with mild left foraminal narrowing. No significant spinal canal stenosis. Paraspinal soft tissues are unremarkable. No enhancing intraspinal mass. IMPRESSION: C6-7: Moderate discogenic disease. 4 mm right central disk osteophyte complex effaces the ventral thecal sac and indents the anterior cord surface. There is moderate spinal canal stenosis. Uncovertebral osteophytes and facet arthropathy cause mild left and severe right foraminal stenosis. Mild discogenic disease C5-6. No evidence of cord edema. No intraspinal enhancing mass identified See details in the findings.PROCEDURE: MRI Thoracic spine with and without contrast CLINICAL INDICATION: Back pain TECHNIQUE: An MRI of the thoracic spine was performed on a high resolution MRI scanner utilizing the following sequences: Sagittal and axial T1 weighted, sagittal and axial T2 weighted, and sagittal STIR. Additional post contrast sequences were acquired after the intravenous administration of 10 cc ProHance. There were no reported complications. COMPARISON: Correlation chest CT 04/18/2016 FINDINGS: Normal alignment. No acute vertebral compression fracture. Multilevel thoracic vertebral osteophytes are identified. The thoracic cord demonstrates normal contour and signal intensity. No significant disk protrusion, spinal canal or foraminal stenosis. No abnormal intraspinal mass or intraspinal enhancement. IMPRESSION: Mild thoracic degenerative changes. No evidence of cord edema or cord compression. No significant spinal canal stenosis. No acute compression fracture. MAXIME MCKEON Apr 21, 2016 13:58
--- NOTE | 2016-04-21 14:12 | RADRPT ---
PROCEDURE: MRI OF THE LEFT HUMERUS CLINICAL INDICATION: Left upper extremity weakness. AIDS. Sepsis. TECHNIQUE: Multiple MR pulse sequences in multiple planes were obtained. Images were interpreted o n a high-resolution PACS system. COMPARISON: None available. FINDINGS: There is no acute fracture or osteonecrosis. No abnormal bone marrow signal is seen in the visualiz ed portions of the humerus to suggest osteomyelitis. The visualized muscles demonstrate normal signal without findings to suggest myositis, strain or den ervation effect. No abnormal subcutaneous or intramuscular fluid collections are identified. There susceptibility artifact just distal to the axilla, of uncertain origin. The neurovascular bundles are grossly preserved. IMPRESSION: 1. No abnormal intramuscular collections or abnormal muscle signal in the imaged portions of the hu merus. 2. Normal bone marrow signal in the imaged portions of the humerus. RPTAT: RR .Fran Mujica MD, MD Date Time Electronically viewed and signed by .Fran Mujica MD, MD on 04/21/2016 14:12 .d/
--- NOTE | 2016-04-21 19:08 | CONS ---
Date/Time of Note Date/Time of Note DATE: 04/21/16 TIME: 19:07 Consult Date/Type/Reason Admit Date/Time Apr 16, 2016 at 23:36 Initial Consult Date 04/18/16 Type of Consultation: Card Ordering Provider: NAKIA LUNA MD Objective Vital Signs Date Time Temp Pulse Resp B/P Pulse Ox O2 Delivery O2 Flow Rate FiO2 04/21/16 07:46 98.2 69 18 130/86 97 04/20/16 20:03 Room Air 04/19/16 10:00 2 Intake and Output 04/20/16 04/20/16 04/21/16 15:00 23:00 07:00 Intake Total 900 ml 300 ml Output Total 1050 ml 850 ml Balance -150 ml -550 ml Results/Medications Result Diagram: 04/21/16 0750 04/21/16 0750 Results 24 hrs Laboratory Tests Test 04/21/16 07:50 Alanine Aminotransferase (ALT/SGPT) 36 Albumin 3.5 Albumin/Globulin Ratio 0.92 Alkaline Phosphatase 86 Anion Gap 13 Aspartate Amino Transf (AST/SGOT) 42 Band Neutrophils % 3.0 Blood Urea Nitrogen 13 Calcium Level 8.7 Carbon Dioxide Level 27 Chloride Level 105 Creatinine 0.80 Direct Bilirubin 0.00 Eosinophils # 0.5 Eosinophils % 36.0 H Globulin 3.80 H Glucose Level 80 HIV (1&2) Antibody REACTIVE H Hematocrit 37.5 L Hemoglobin 12.6 L Indirect Bilirubin 0.1 Lymphocytes # 0.6 L Lymphocytes % 37.0 Mean Corpuscular Hemoglobin 29.2 Mean Corpuscular Hemoglobin Concent 33.6 Mean Corpuscular Volume 87.0 Mean Platelet Volume 9.2 Monocytes # 0.2 L Monocytes % 13.0 H Neutrophils # 0.2 L Neutrophils % 11.0 L Platelet Count 209 Potassium Level 4.3 Red Blood Count 4.31 L Red Cell Distribution Width 14.4 Sodium Level 141 Total Bilirubin 0.1 L Total Protein 7.3 White Blood Count 1.5 #L Medications Current Medications Acetaminophen (Tylenol Tab) 650 mg Q4H PRN PO PAIN AND OR ELEVATED TEMP Last administered on 04/19/16 19:05; Admin Dose 650 MG; Start 04/17/16 at 01:00 Enoxaparin Sodium (Lovenox) 40 mg DAILY SC Last administered on 04/21/16 09:24 ; Admin Dose 40 MG; Start 04/17/16 at 09:00 Acetaminophen/ Hydrocodone Bitart ([place] (5/325)) 1 tab Q4H PRN PO PAIN Last administered on 04/17/16 01:26; Admin Dose 1 TAB; Start 04/17/16 at 01:00 Morphine Sulfate (morphine) 2 mg Q4H PRN IV SEVERE PAIN Last administered on 09:02; Admin Dose 2 MG; Start 04/17/16 at 01:00 Zolpidem Tartrate (Ambien) 5 mg HS PRN PO INSOMNIA Last administered on 01:26; Admin Dose 5 MG; Start 04/17/16 at 01:00 Eye Lubricant (Artificial Tears Oph) 2 drop Q6H PRN BOTH EYES DRY EYES Last administered on 04/21/16 08:51; Admin Dose 2 DROP; Start 04/17/16 at 19:00 Azithromycin (Zithromax) 1,200 mg Q7D PO Last administered on 04/18/16 14:05; Admin Dose 1,200 MG; Start 04/18/16 at 12:30 Diphenhydramine HCl (Benadryl) 25 mg Q6H PRN IV ITCHING Last administered on 08:49; Admin Dose 25 MG; Start 04/19/16 at 21:00 Senna (Senokot) 2 tab BID PO Last administered on 04/21/16 08:49; Admin Dose 2 TAB; Start 04/19/16 at 21:00 Nystatin 5 ml 5 ml QID PO Last administered on 04/21/16 17:30; Admin Dose 5 ML ; Start 04/19/16 at 21:00 Meropenem (Merrem 1 Gm/100 ml (Pmx)) 100 ml @ 200 mls/hr Q8 IVPB Last administered on 04/21/16 13:43; Admin Dose 200 MLS/HR; Start 04/19/16 at 22:00 Fluconazole (Diflucan) 100 mg DAILY PO Last administered on 04/21/16 08:49; Admin Dose 100 MG; Start 04/20/16 at 12:30 Atovaquone (Mepron) 1,500 mg DAILY PO Last administered on 04/21/16 08:49; Admin Dose 1,500 MG; Start 04/21/16 at 09:00 Assessment/Plan Additional Assessment/Plan Clinically stable cardiac martinez Oral thrus ID on case WIll f./u out pt f/.u MUSA REYES MD Apr 21, 2016 19:08
[2016-04-21 19:59] VITALS: BP 142/89; RESP 20
--- NOTE | 2016-04-22 01:39 | RADRPT ---
PROCEDURE: Contrast enhanced MRI examination of the left shoulder CLINICAL INDICATION: Left upper extremity weakness. AIDS. Sepsis. TECHNIQUE: Noncontrast MRI of the left shoulder, with axial, sagittal and coronal images. T2-weig hted, proton density and fat saturation techniques are employed. COMPARISON: CT examination of the left upper extremity, including the left shoulder dated 7. FINDINGS: Subacromial subdeltoid bursal fluid is compatible with a full-thickness partial with tear of the rot ator cuff. The tear is otherwise not specifically identified, and MR arthrogram of the left shoulder may be of further use if clinically required. Tendinosis of the supraspinatus with apparent impingement at the undersurface of the lateral acromio n. There is tendinosis of the insertional infraspinatus. Likely tears of the distal insertional subs capularis, with tendinosis of the distal subscapularis. No evident fracture, dislocation or marrow replacement process. The intra-articular biceps demonstrates increased fluid signal and thickening compatible with tendin osis. There is no evident fall or partial thickness tear of the interarticular biceps. Tear is like ly present at the biceps anchor. Tears of the posterior superior and superior posterior glenoid labr um. Remaining labrum is intact. There is no evident mass or abscess. Otherwise, there is no significant joint fluid. Moderate degenerative changes in the acromioclavicul ar joint. IMPRESSION: 1. Subacromial subdeltoid bursal fluid is compatible with a full-thickness partial with tear of the supraspinatus or infraspinatus, not otherwise directly visualized. 2. MR arthrogram of the shoulder may be of further use. 3. Undersurface impingement of the supraspinatus at the lateral aspect of the left acromion, with t endinosis in the supraspinatus. 4. Nonspecific tendinosis of the insertional infraspinatus. 5. Tendinosis of the interarticular biceps with increased fluid signal and thickening, otherwise wi thout evident tear 6. Suspected tear of the biceps anchor, with tears of the posterior superior and superior posterior glenoid labrum. 7. No acute fracture. RPTAT: UU Truong Roca Physician Date Time Electronically viewed and signed by Truong Roca, Physician on 04/22/2016 01:39 RS/
--- NOTE | 2016-04-22 01:42 | RADRPT ---
PROCEDURE: MR Elbow. CLINICAL INDICATION: Left elbow pain and sepsis TECHNIQUE: Noncontrast MRI of the left elbow, with axial, sagittal and coronal images. Proton den sity and fat saturation technique were employed. COMPARISON: No prior studies are available for comparison. FINDINGS: Both the medial flexor pronator and lateral extensor supinator masses/conjoined tendons are normal. The lateral and medial collateral ligamentous supporting structures are well visualized and are inta ct. There are no abnormal fluid collections and there is no joint effusion. All visualized tendinous structures are normal including the biceps brachii tendon and triceps tendo n. The visualized neurovascular bundles are unremarkable including the ulnar nerve. The cubital tunnel is normal. No evident mass or abscess. IMPRESSION: 1. No evident abscess or joint effusion in the left elbow. 2. No acute process identified in the left elbow. RPTAT: [facility] Physician Amelia Date Time Electronically viewed and signed by Physician Amelia on 04/22/2016 01:42 RS/
[2016-04-22 05:39] LABS: ADD SCAN DIFF NO
[2016-04-22] MEDS: MEROPENEM 1 GM/100 ML (PMX) 100 ML IVPB SCH ×3 (05:49→21:12)
[2016-04-22 05:50] LABS: ABNORMAL IP MESSAGE 1; HEMATOCRIT 37.2 % (42.0-52.0); HEMOGLOBIN 12.6 g/dl (14.0-18.0); MEAN CORPUSCULAR HEMOGLOBIN 29.2 pg (29.0-33.0); MEAN CORPUSCULAR HGB CONC 33.9 g/dl (32.0-37.0); MEAN CORPUSCULAR VOLUME 86.3 fl (82.0-101.0); MEAN PLATELET VOLUME 9.2 fl (7.4-10.4); PLATELET COUNT 234 10^3/UL (140-415); RED BLOOD COUNT 4.31 10^6/ul (4.70-6.10); RED CELL DISTRIBUTION WIDTH 14.2 % (11.5-14.5); WHITE BLOOD COUNT 1.5 10^3/ul (4.8-10.8)
[2016-04-22 06:13] LABS: POTASSIUM 4.1 mmol/L (3.5-5.1)
[2016-04-22 06:15] LABS: CREATININE 0.78 mg/dl (0.61-1.24)
[2016-04-22 06:16] LABS: CALCIUM 9.5 mg/dl (8.4-10.2)
[2016-04-22 07:51] LABS: EOSINOPHILS # 0.6 10^3/ul (0.0-0.5); LYMPHOCYTES # 0.5 10^3/ul (0.8-2.9); MONOCYTE # 0.3 10^3/ul (0.3-0.9); NEUTROPHIL # 0.1 10^3/ul (1.6-7.5)
--- NOTE | 2016-04-22 08:04 | RADRPT ---
PROCEDURE: MRI OF THE LEFT FOREARM CLINICAL INDICATION: Left upper extremity weakness. AIDS. Sepsis. TECHNIQUE: Multiple MR pulse sequences in multiple planes were obtained. Images were interpreted on a high-resolution PACS system. COMPARISON: None available. FINDINGS: There is no acute fracture or osteonecrosis. No abnormal bone marrow signal is seen in the visualize d portions of the forearm to suggest osteomyelitis. The visualized muscles demonstrate normal signal without findings to suggest myositis, strain or den ervation effect. No abnormal subcutaneous or intramuscular fluid collections are identified. There s usceptibility artifact just distal to the axilla, of uncertain origin. Mild, nonspecific subcutaneou s edema is noted about the imaged portions of the forearm. The neurovascular bundles are grossly preserved. IMPRESSION: 1. No abnormal intramuscular collections or abnormal muscle signal in the imaged portions of the for earm. 2. Normal bone marrow signal in the imaged portions of the forearm. 3. Mild, nonspecific subcutaneous edema noted about the forearm. RPTAT: RR .Fran Mujica MD, MD Date Time Electronically viewed and signed by .Fran Mujica MD, on 04/22/2016 08:04 .d/
--- NOTE | 2016-04-22 08:11 | RADRPT ---
PROCEDURE: MRI OF THE LEFT WRIST. CLINICAL INDICATION: Sepsis TECHNIQUE: Multiple MR pulse sequences in multiple planes were obtained. Images were interpreted o high-resolution PACS system. COMPARISON: None available FINDINGS: Osseous structures and cartilage surfaces: There is a small radiocarpal joint effusion. Mild amount of edema is noted at the ulnar aspect of the radius near the distal radioulnar joint seen on the co keily sequence image 8. There is small foci of increased bone marrow signal noted about the carpal bones, which do not appear like cysts. There is mild arthrosis at the first CMC joint. Tendons: There is a mild amount of fluid noted within the second extensor compartment tendon sheath seen on the axial sequence image 18, consider tenosynovitis is also seen at the third extensor tendo n at the level of carpal bones. No tendon rupture is evident. Ligaments: The scapholunate and lunotriquetral ligaments are intact. Triangular fibrocartilage complex: There is signal inhomogeneity at the articular disk without defin ite defect. Small amount of fluid is noted in the distal radioulnar joint. Carpal tunnel: No evidence for mass lesion. No evidence for median neuritis. Guyon's canal : The ulnar nerve appears normal. No mass lesion is seen. No evidence for neuritis. No evidence for neuroma. Synovium: A small effusion is seen within the radiocarpal and distal radioulnar joints. IMPRESSION: 1. Small, nonspecific joint effusion noted at the radiocarpal and distal radioulnar joints, with pa tchy areas of bone marrow edema noted at the distal radius and scattered at the carpal bones, which is nonspecific but based on the clinical information early septic arthritis should be excluded and c orrelation with fluid sampling may be of value. An inflammatory etiology or recent trauma can also have this appearance in the right clinical setting. 2. Mild, nonspecific tenosynovitis of the third and fourth extensor tendons distal to the radius. 3. No evidence for osteomyelitis at this time. RPTAT: AA .Fran Mujica MD, MD Date Time Electronically viewed and signed by .Fran Mujica MD, on 04/22/2016 08:11 .d/
[2016-04-22 08:13] VITALS: BP 136/90; RESP 18
--- NOTE | 2016-04-22 08:15 | RADRPT ---
PROCEDURE: MRI OF THE LEFT HAND. CLINICAL INDICATION: Sepsis TECHNIQUE: Multiple MR pulse sequences in multiple planes were obtained. Images were interpreted o n high-resolution PACS system. COMPARISON: None available FINDINGS: There is no acute fracture, osteonecrosis or evidence of osteomyelitis. A very small sub cortical cy st is seen at the fifth proximal phalanx of the fifth MCP, nonspecific. There is a nonspecific trac tion cyst at the second metacarpal. The visualized carpal metacarpal and interphalangeal articulations are maintained without evidence o f marginal erosions or synovitis. There is mild, nonspecific edema noted at the extensor tendons of the third and fourth digits seen o n the axial sequence image 31 and flexor tendon at the second and fourth digits. The flexor and exte nsor mechanisms are otherwise intact. IMPRESSION: 1. Nonspecific tenosynovitis noted at the third and fourth extensor tendons and at the second, four th and fifth flexor tendons. Infectious or inflammatory etiology should be considered, or may also be seen with overuse, depending on scenario. 2. No acute osseous abnormality or evidence of septic arthritis or osteomyelitis of the digits. RPTAT: AA .Fran Mujica MD, Date Time Electronically viewed and signed by .Fran Mujica MD, on 04/22/2016 08:15 .d/
[2016-04-22] MEDS: NYSTATIN SUSP 5 ML CUP PO SCH ×4 (08:45→21:05)
[2016-04-22] MEDS: SENNA TAB PO SCH ×2 (08:46→21:06)
[2016-04-22] MEDS: ATOVAQUONE 750 MG/5 ML CUP PO SCH (08:46)
[2016-04-22] MEDS: FLUCONAZOLE 100 MG TAB PO SCH (08:46)
[2016-04-22] MEDS: ENOXAPARIN 40 MG/0.4 ML SYG SC SCH (08:50)
--- NOTE | 2016-04-22 09:45 | CONS ---
Date/Time of Note Date/Time of Note DATE: 04/22/16 TIME: 09:31 Assessment/Plan Assessment/Plan Chief Complaint/Hosp Course assessment/impression - advanced AIDS, on-compliant with medications - neutropenia - fever on admission, low grade temp 100F after BMBx-->at present afebrile - h/o cough on admission, resolved. CXR showed overinflated lungs, CT showed benign appearing sub-centimeter nodule seen at the bilateral lung bases - E. coli in urine, likely colonization - LUE weakness and pain due to tear of rotator cuff muscles and bicep tendon anchor - L cervical and supraclavicular lymphadenopathy probably due to HIV infection - h/o thrush so far: crypto antigen negative, QTBG negative recommendations - pending results: cocci serology, AFB blood culture (re-ordered), CMV quantitative PCR, final Bx (path, bacterial/AFB/fungal/viral stain), HIV genotype, HIV viral load and CD4 count - discussed with Dr. Welch on 04/20/2016 and 04/21/2016: so far no e/o opportunistic infection or malignancy in bone marrow. Requested special stains for viruses, the result is pending - the bone marrow is negative for all stains (results will be ready by the end of today), will start him on antiretroviral meds: Stribild (tenofovir/ emtricitabine/elvitaegravir/cobicistat) and darunavir 800mg (darunavir dosed at 800mg to simulate Prezcobix [darunavir 800mg/cobicistat 150mg) tomorrow. Pt agreed with this plan. - I stressed that Pt must be compliant with his ARVs to reconstitute his immune function - I recommend referral to PT and orthopedic re. LUE and L hand pain due to tear of rotator cuff muscles and bicep tendon anchor - complete meropenem (04/19/2016-) on 04/24/2016-->then I recommend levofloxacin 500mg PO daily until his absolute neutrophil counts >1000 - continue flucon for thrush until 04/24/2016 - continue atovaquone and Azithromycin for PCP and MAC prophylaxis while waiting for CD4 count to come back (Bactrim was changed to atovaquone due to neutropenia) management d/w Pt, his RN, pharmacist the total time I took to care for this Pt today was from [id number] to [id number] Problems: Consultation Date/Type/Reason Admit Date/Time Apr 16, 2016 at 23:36 Initial Consult Date 04/18/16 Type of Consultation: ID Referring Provider: NAKIA LUNA MD 24 HR Interval Summary Constitutional: no complaints Detailed Summary Eyes: no complaints ENT: no complaints Respiratory: no complaints Cardiovascular: no complaints Gastrointestinal: no complaints Genitourinary: no complaints Musculoskeletal: bone/joint pain, restricted range of motion Skin: no complaints Neurologic: focal-weakness Endocrine: no complaints Exam/Review of Systems Vital Signs Vitals Vital Signs Date Time Temp Pulse Resp B/P Pulse Ox O2 Delivery O2 Flow Rate FiO2 04/22/16 08:13 98.9 80 18 136/90 98 04/20/16 20:03 Room Air 04/19/16 10:00 2 Intake and Output 04/21/16 04/21/16 04/22/16 15:00 23:00 07:00 Intake Total 100 ml 1050 ml 560 ml Output Total 1000 ml 600 ml Balance 100 ml 50 ml -40 ml Exam Constitutional: alert, oriented, well developed Psych: nl mood/affect, no complaints Head: atraumatic, normocephalic Eyes: nl conjunctiva, nl lids ENMT: nl external ears & nose, nl nasal mucosa & septum Neck: supple Musculoskeletal: muscle weakness (LUE and L hand), No swelling Extremities: No edema Neurological: focal weakness (LUE and L hand) Skin: nl turgor, No rash or lesions Results Result Diagram: 04/22/16 0510 04/22/16 0510 Results 24 hrs Laboratory Tests Test 04/22/16 05:10 Anion Gap 15 Basophils # 0.0 Basophils % 2.0 Blood Urea Nitrogen 14 Calcium Level 9.5 Carbon Dioxide Level 26 Chloride Level 103 Creatinine 0.78 Eosinophils # 0.6 H Eosinophils % 37.0 H Glucose Level 95 Hematocrit 37.2 L Hemoglobin 12.6 L Lymphocytes # 0.5 L Lymphocytes % 36.0 Mean Corpuscular Hemoglobin 29.2 Mean Corpuscular Hemoglobin Concent 33.9 Mean Corpuscular Volume 86.3 Mean Platelet Volume 9.2 Monocytes # 0.3 Monocytes % 18.0 H Neutrophils # 0.1 L Neutrophils % 7.0 L Platelet Count 234 Potassium Level 4.1 Red Blood Count 4.31 L Red Cell Distribution Width 14.2 Sodium Level 140 White Blood Count 1.5 L Medications Medications Current Medications Acetaminophen (Tylenol Tab) 650 mg Q4H PRN PO PAIN AND OR ELEVATED TEMP Last administered on 04/19/16 19:05; Admin Dose 650 MG; Start 04/17/16 at 01:00 Enoxaparin Sodium (Lovenox) 40 mg DAILY SC Last administered on 04/22/16 08:50 ; Admin Dose 40 MG; Start 04/17/16 at 09:00 Acetaminophen/ Hydrocodone Bitart ([place] (5/325)) 1 tab Q4H PRN PO PAIN Last administered on 04/17/16 01:26; Admin Dose 1 TAB; Start 04/17/16 at 01:00 Morphine Sulfate (morphine) 2 mg Q4H PRN IV SEVERE PAIN Last administered on 20:08; Admin Dose 2 MG; Start 04/17/16 at 01:00 Zolpidem Tartrate (Ambien) 5 mg HS PRN PO INSOMNIA Last administered on 01:26; Admin Dose 5 MG; Start 04/17/16 at 01:00 Eye Lubricant (Artificial Tears Oph) 2 drop Q6H PRN BOTH EYES DRY EYES Last administered on 04/21/16 08:51; Admin Dose 2 DROP; Start 04/17/16 at 19:00 Azithromycin (Zithromax) 1,200 mg Q7D PO Last administered on 04/18/16 14:05; Admin Dose 1,200 MG; Start 04/18/16 at 12:30 Diphenhydramine HCl (Benadryl) 25 mg Q6H PRN IV ITCHING Last administered on 08:49; Admin Dose 25 MG; Start 04/19/16 at 21:00 Senna (Senokot) 2 tab BID PO Last administered on 04/22/16 08:46; Admin Dose 2 TAB; Start 04/19/16 at 21:00 Nystatin 5 ml 5 ml QID PO Last administered on 04/22/16 08:45; Admin Dose 5 ML ; Start 04/19/16 at 21:00 Meropenem (Merrem 1 Gm/100 ml (Pmx)) 100 ml @ 200 mls/hr Q8 IVPB Last administered on 04/22/16 05:49; Admin Dose 200 MLS/HR; Start 04/19/16 at 22:00 Fluconazole (Diflucan) 100 mg DAILY PO Last administered on 04/22/16 08:46; Admin Dose 100 MG; Start 04/20/16 at 12:30 Atovaquone (Mepron) 1,500 mg DAILY PO Last administered on 04/22/16 08:46; Admin Dose 1,500 MG; Start 04/21/16 at 09:00 JACK LAIRD M.D. Apr 22, 2016 09:43
--- NOTE | 2016-04-22 15:35 | PN ---
Date/Time of Note Date/Time of Note DATE: 04/22/16 TIME: 15:29 Assessment/Plan VTE Prophylaxis VTE Prophylaxis Intervention: SCD's Lines/Catheters IV [facility] Type [facility]from [facility] Saline Lock Urinary Cath still in place: No Assessment/Plan Chief Complaint/Hosp Course Assessment and plan - AIDS, patient is not compliant with medication. Dr. Lady reese is following in infection disease consultation. Patient restarted on antiretroviral therapy. - Neutropenia and fever on admission. Continue antibiotics per ID. - Dysphagia with oral candidiasis, on fluconazole. - GNR UTI versus colonization - Anemia [address] Carias is following in hematology oncology consultation. Status post bone marrow biopsy, negative for hematologic malignancy. -Chest pain on admission. Troponins negative 3. Dr. Silver is following in cardiology consultation. - LUE and L hand pain due to tear of rotator cuff muscles and bicep tendon anchor, Dr Vance to see pt in ortho consult. Further recommendations based on clinical course. Plan of care discussed with Dr. Walden. Problems: Exam/Review of Systems Vital Signs Vitals Vital Signs Date Time Temp Pulse Resp B/P Pulse Ox O2 Delivery O2 Flow Rate FiO2 04/22/16 08:13 98.9 80 18 136/90 98 04/20/16 20:03 Room Air 04/19/16 10:00 2 Intake and Output 04/21/16 04/21/16 04/22/16 14:59 22:59 06:59 Intake Total 100 ml 1050 ml 560 ml Output Total 1000 ml 600 ml Balance 100 ml 50 ml -40 ml Exam Constitutional: alert, oriented Psych: no complaints Head: atraumatic, normocephalic Eyes: nl conjunctiva ENMT: nl external ears & nose Neck: non-tender, supple Respiratory: clear to auscultation Cardiovascular: nl pulses, regular rate and rhythm Gastrointestinal: non-tender, soft Musculoskeletal: nl extremities to inspection Extremities: normal pulses Neurological: [employer] II-XII intact Results Result Diagram: 04/22/16 0510 04/22/16 0510 Results 24 hrs Laboratory Tests Test 04/22/16 05:10 04/22/16 12:31 04/22/16 12:32 Anion Gap 15 Basophils # 0.0 Basophils % 2.0 Blood Urea Nitrogen 14 Calcium Level 9.5 Carbon Dioxide Level 26 Chloride Level 103 Creatinine 0.78 Eosinophils # 0.6 H Eosinophils % 37.0 H Glucose Level 95 Hematocrit 37.2 L Hemoglobin 12.6 L Lymphocytes # 0.5 L Lymphocytes % 36.0 Mean Corpuscular Hemoglobin 29.2 Mean Corpuscular Hemoglobin Concent 33.9 Mean Corpuscular Volume 86.3 Mean Platelet Volume 9.2 Monocytes # 0.3 Monocytes % 18.0 H Neutrophils # 0.1 L Neutrophils % 7.0 L Platelet Count 234 Potassium Level 4.1 Red Blood Count 4.31 L Red Cell Distribution Width 14.2 Sodium Level 140 White Blood Count 1.5 L Lab Scanned Report REFERENCE LAB REFERENCE LAB Medications Medications Current Medications Acetaminophen (Tylenol Tab) 650 mg Q4H PRN PO PAIN AND OR ELEVATED TEMP Last administered on 04/19/16 19:05; Admin Dose 650 MG; Start 04/17/16 at 01:00 Enoxaparin Sodium (Lovenox) 40 mg DAILY SC Last administered on 04/22/16 08:50 ; Admin Dose 40 MG; Start 04/17/16 at 09:00 Acetaminophen/ Hydrocodone Bitart ([place] (5/325)) 1 tab Q4H PRN PO PAIN Last administered on 04/17/16 01:26; Admin Dose 1 TAB; Start 04/17/16 at 01:00 Morphine Sulfate (morphine) 2 mg Q4H PRN IV SEVERE PAIN Last administered on 20:08; Admin Dose 2 MG; Start 04/17/16 at 01:00 Zolpidem Tartrate (Ambien) 5 mg HS PRN PO INSOMNIA Last administered on 01:26; Admin Dose 5 MG; Start 04/17/16 at 01:00 Eye Lubricant (Artificial Tears Oph) 2 drop Q6H PRN BOTH EYES DRY EYES Last administered on 04/21/16 08:51; Admin Dose 2 DROP; Start 04/17/16 at 19:00 Azithromycin (Zithromax) 1,200 mg Q7D PO Last administered on 04/18/16 14:05; Admin Dose 1,200 MG; Start 04/18/16 at 12:30 Diphenhydramine HCl (Benadryl) 25 mg Q6H PRN IV ITCHING Last administered on 08:49; Admin Dose 25 MG; Start 04/19/16 at 21:00 Senna (Senokot) 2 tab BID PO Last administered on 04/22/16 08:46; Admin Dose 2 TAB; Start 04/19/16 at 21:00 Nystatin 5 ml 5 ml QID PO Last administered on 04/22/16 13:34; Admin Dose 5 ML ; Start 04/19/16 at 21:00 Meropenem (Merrem 1 Gm/100 ml (Pmx)) 100 ml @ 200 mls/hr Q8 IVPB Last administered on 04/22/16 13:34; Admin Dose 200 MLS/HR; Start 04/19/16 at 22:00 Fluconazole (Diflucan) 100 mg DAILY PO Last administered on 04/22/16 08:46; Admin Dose 100 MG; Start 04/20/16 at 12:30 Atovaquone (Mepron) 1,500 mg DAILY PO Last administered on 04/22/16 08:46; Admin Dose 1,500 MG; Start 04/21/16 at 09:00 AAKASH MITCHELL Apr 22, 2016 15:35
[2016-04-22] MEDS: morphine 2 MG INJ IV PRN ×2 (16:10→21:04)
[2016-04-22 19:49] VITALS: BP 155/98; PULSE 75; RESP 18
--- NOTE | 2016-04-22 20:14 | CONS ---
Date/Time of Note Date/Time of Note DATE: 04/22/16 TIME: 20:13 Consult Date/Type/Reason Admit Date/Time Apr 16, 2016 at 23:36 Initial Consult Date 04/18/16 Type of Consultation: Card Ordering Provider: NAKIA LUNA MD Objective Vital Signs Date Time Temp Pulse Resp B/P Pulse Ox O2 Delivery O2 Flow Rate FiO2 04/22/16 19:49 99.0 75 18 155/98 99 Room Air 04/19/16 10:00 2 Intake and Output 04/21/16 04/21/16 04/22/16 15:00 23:00 07:00 Intake Total 100 ml 1050 ml 560 ml Output Total 1000 ml 600 ml Balance 100 ml 50 ml -40 ml Results/Medications Result Diagram: 04/22/16 0510 04/22/16 0510 Results 24 hrs Laboratory Tests Test 04/22/16 05:10 04/22/16 12:31 04/22/16 12:32 Anion Gap 15 Basophils # 0.0 Basophils % 2.0 Blood Urea Nitrogen 14 Calcium Level 9.5 Carbon Dioxide Level 26 Chloride Level 103 Creatinine 0.78 Eosinophils # 0.6 H Eosinophils % 37.0 H Glucose Level 95 Hematocrit 37.2 L Hemoglobin 12.6 L Lymphocytes # 0.5 L Lymphocytes % 36.0 Mean Corpuscular Hemoglobin 29.2 Mean Corpuscular Hemoglobin Concent 33.9 Mean Corpuscular Volume 86.3 Mean Platelet Volume 9.2 Monocytes # 0.3 Monocytes % 18.0 H Neutrophils # 0.1 L Neutrophils % 7.0 L Platelet Count 234 Potassium Level 4.1 Red Blood Count 4.31 L Red Cell Distribution Width 14.2 Sodium Level 140 White Blood Count 1.5 L Lab Scanned Report REFERENCE LAB REFERENCE LAB Medications Current Medications Acetaminophen (Tylenol Tab) 650 mg Q4H PRN PO PAIN AND OR ELEVATED TEMP Last administered on 04/19/16 19:05; Admin Dose 650 MG; Start 04/17/16 at 01:00 Enoxaparin Sodium (Lovenox) 40 mg DAILY SC Last administered on 04/22/16 08:50 ; Admin Dose 40 MG; Start 04/17/16 at 09:00 Acetaminophen/ Hydrocodone Bitart ([place] (5/325)) 1 tab Q4H PRN PO PAIN Last administered on 04/17/16 01:26; Admin Dose 1 TAB; Start 04/17/16 at 01:00 Morphine Sulfate (morphine) 2 mg Q4H PRN IV SEVERE PAIN Last administered on 16:10; Admin Dose 2 MG; Start 04/17/16 at 01:00 Zolpidem Tartrate (Ambien) 5 mg HS PRN PO INSOMNIA Last administered on 01:26; Admin Dose 5 MG; Start 04/17/16 at 01:00 Eye Lubricant (Artificial Tears Oph) 2 drop Q6H PRN BOTH EYES DRY EYES Last administered on 04/21/16 08:51; Admin Dose 2 DROP; Start 04/17/16 at 19:00 Azithromycin (Zithromax) 1,200 mg Q7D PO Last administered on 04/18/16 14:05; Admin Dose 1,200 MG; Start 04/18/16 at 12:30 Diphenhydramine HCl (Benadryl) 25 mg Q6H PRN IV ITCHING Last administered on 08:49; Admin Dose 25 MG; Start 04/19/16 at 21:00 Senna (Senokot) 2 tab BID PO Last administered on 04/22/16 08:46; Admin Dose 2 TAB; Start 04/19/16 at 21:00 Nystatin 5 ml 5 ml QID PO Last administered on 04/22/16 17:59; Admin Dose 5 ML ; Start 04/19/16 at 21:00 Meropenem (Merrem 1 Gm/100 ml (Pmx)) 100 ml @ 200 mls/hr Q8 IVPB Last administered on 04/22/16 13:34; Admin Dose 200 MLS/HR; Start 04/19/16 at 22:00 Fluconazole (Diflucan) 100 mg DAILY PO Last administered on 04/22/16 08:46; Admin Dose 100 MG; Start 04/20/16 at 12:30 Atovaquone (Mepron) 1,500 mg DAILY PO Last administered on 04/22/16 08:46; Admin Dose 1,500 MG; Start 04/21/16 at 09:00 Assessment/Plan Problems: (1) Syncope (2) Cough (3) Leukopenia (4) Chest pain (5) Jud infection, oral (6) Sepsis Additional Assessment/Plan Pt stable cardiac martinez ID on case ABx ortho pending f/u out pt once d/c MUSA REYES MD Apr 22, 2016 20:14
[2016-04-22 21:20] VITALS: BP_SYST 163; BP_SYST 165; BP_DIAS 100; BP_DIAS 108
[2016-04-22] MEDS: AMLODIPINE 10 MG TAB PO SCH (21:36)
[2016-04-22 22:50] VITALS: BP 147/84; PULSE 74
[2016-04-23] MEDS: MEROPENEM 1 GM/100 ML (PMX) 100 ML IVPB SCH ×3 (05:20→22:02)
[2016-04-23 06:17] LABS: ADD SCAN DIFF NO
[2016-04-23 06:26] LABS: ABNORMAL IP MESSAGE 1; HEMATOCRIT 38.3 % (42.0-52.0); MEAN CORPUSCULAR HEMOGLOBIN 29.1 pg (29.0-33.0); MEAN CORPUSCULAR HGB CONC 33.9 g/dl (32.0-37.0); MEAN CORPUSCULAR VOLUME 85.7 fl (82.0-101.0); MEAN PLATELET VOLUME 9.1 fl (7.4-10.4); PLATELET COUNT 227 10^3/UL (140-415); RED BLOOD COUNT 4.47 10^6/ul (4.70-6.10); RED CELL DISTRIBUTION WIDTH 14.1 % (11.5-14.5); WHITE BLOOD COUNT 1.4 10^3/ul (4.8-10.8)
[2016-04-23 07:38] VITALS: BP 112/73; RESP 20
[2016-04-23 07:41] LABS: POTASSIUM 3.9 mmol/L (3.5-5.1)
[2016-04-23 07:43] LABS: CREATININE 0.64 mg/dl (0.61-1.24)
[2016-04-23 07:44] LABS: CALCIUM 8.9 mg/dl (8.4-10.2)
[2016-04-23] MEDS: AMLODIPINE 10 MG TAB PO SCH (09:00)
[2016-04-23] MEDS: NYSTATIN SUSP 5 ML CUP PO SCH ×4 (09:36→20:04)
[2016-04-23] MEDS: FLUCONAZOLE 100 MG TAB PO SCH (09:36)
[2016-04-23] MEDS: ATOVAQUONE 750 MG/5 ML CUP PO SCH (09:36)
[2016-04-23] MEDS: SENNA TAB PO SCH ×2 (09:36→20:04)
[2016-04-23] MEDS: ENOXAPARIN 40 MG/0.4 ML SYG SC SCH (09:43)
[2016-04-23] MEDS: ARTIFICIAL TEARS 15 ML OPH BOTH EYES PRN (09:47)
--- NOTE | 2016-04-23 10:14 | PN ---
Date/Time of Note Date/Time of Note DATE: 04/23/16 TIME: 10:14 Assessment/Plan VTE Prophylaxis VTE Prophylaxis Intervention: other Lines/Catheters [facility] Type [facility]from [facility] Saline Lock Urinary Cath still in place: No Assessment/Plan Chief Complaint/Hosp Course - AIDS, patient is not compliant with medication. Dr. Lady reese is following in infection disease consultation. Patient restarted on antiretroviral therapy. - Neutropenia and fever on admission. Continue antibiotics per ID. - Dysphagia with oral candidiasis, on fluconazole. - GNR UTI versus colonization - Anemia [address] Carias is following in hematology oncology consultation. Status post bone marrow biopsy, negative for hematologic malignancy. -Chest pain on admission. Troponins negative 3. Dr. Silver is following in cardiology consultation. - LUE and L hand pain due to tear of rotator cuff muscles and bicep tendon anchor, Dr Vance to see pt in ortho consult. Problems: Subjective 24 Hr Interval Summary Free Text/Dictation Complain of pain in left arm Exam/Review of Systems Vital Signs Vitals Vital Signs Date Time Temp Pulse Resp B/P Pulse Ox O2 Delivery O2 Flow Rate FiO2 04/23/16 07:38 98.3 75 20 112/73 97 04/22/16 19:49 Room Air 04/19/16 10:00 2 Intake and Output 04/22/16 04/22/16 04/23/16 15:00 23:00 07:00 Intake Total 100 ml 1420 ml 1340 ml Output Total 1400 ml Balance 100 ml 1420 ml -60 ml Exam Constitutional: well developed Head: atraumatic, normocephalic Neck: supple Respiratory: clear to auscultation Cardiovascular: regular rate and rhythm Gastrointestinal: non-tender, soft Results Result Diagram: 04/23/16 0539 04/23/16 0539 Results 24 hrs Laboratory Tests Test 04/22/16 12:31 04/22/16 12:32 04/23/16 05:39 Lab Scanned Report REFERENCE LAB REFERENCE LAB Anion Gap 16 Blood Urea Nitrogen 11 Calcium Level 8.9 Carbon Dioxide Level 25 Chloride Level 101 Creatinine 0.64 Glucose Level 88 Hematocrit 38.3 L Hemoglobin 13.0 L Lymphocytes # Lymphocytes % Mean Corpuscular Hemoglobin 29.1 Mean Corpuscular Hemoglobin Concent 33.9 Mean Corpuscular Volume 85.7 Mean Platelet Volume 9.1 Monocytes # Monocytes % Neutrophils # Neutrophils % Platelet Count 227 Potassium Level 3.9 Red Blood Count 4.47 L Red Cell Distribution Width 14.1 Sodium Level 138 White Blood Count 1.4 L Medications Medications Current Medications Acetaminophen (Tylenol Tab) 650 mg Q4H PRN PO PAIN AND OR ELEVATED TEMP Last administered on 04/19/16 19:05; Admin Dose 650 MG; Start 04/17/16 at 01:00 Enoxaparin Sodium (Lovenox) 40 mg DAILY SC Last administered on 04/23/16 09:43 ; Admin Dose 40 MG; Start 04/17/16 at 09:00 Acetaminophen/ Hydrocodone Bitart ([place] (5/325)) 1 tab Q4H PRN PO PAIN Last administered on 04/17/16 01:26; Admin Dose 1 TAB; Start 04/17/16 at 01:00 Morphine Sulfate (morphine) 2 mg Q4H PRN IV SEVERE PAIN Last administered on 21:04; Admin Dose 2 MG; Start 04/17/16 at 01:00 Zolpidem Tartrate (Ambien) 5 mg HS PRN PO INSOMNIA Last administered on 01:26; Admin Dose 5 MG; Start 04/17/16 at 01:00 Eye Lubricant (Artificial Tears Oph) 2 drop Q6H PRN BOTH EYES DRY EYES Last administered on 04/23/16 09:47; Admin Dose 2 DROP; Start 04/17/16 at 19:00 Azithromycin (Zithromax) 1,200 mg Q7D PO Last administered on 04/18/16 14:05; Admin Dose 1,200 MG; Start 04/18/16 at 12:30 Diphenhydramine HCl (Benadryl) 25 mg Q6H PRN IV ITCHING Last administered on 08:49; Admin Dose 25 MG; Start 04/19/16 at 21:00 Senna (Senokot) 2 tab BID PO Last administered on 04/23/16 09:36; Admin Dose 2 TAB; Start 04/19/16 at 21:00 Nystatin 5 ml 5 ml QID PO Last administered on 04/23/16 09:36; Admin Dose 5 ML ; Start 04/19/16 at 21:00 Meropenem (Merrem 1 Gm/100 ml (Pmx)) 100 ml @ 200 mls/hr Q8 IVPB Last administered on 04/23/16 05:20; Admin Dose 200 MLS/HR; Start 04/19/16 at 22:00 Fluconazole (Diflucan) 100 mg DAILY PO Last administered on 04/23/16 09:36; Admin Dose 100 MG; Start 04/20/16 at 12:30 Atovaquone (Mepron) 1,500 mg DAILY PO Last administered on 04/23/16 09:36; Admin Dose 1,500 MG; Start 04/21/16 at 09:00 Amlodipine Besylate (Norvasc) 10 mg DAILY PO Last administered on 04/22/16 21: 36; Admin Dose 10 MG; Start 04/22/16 at 21:30 Clonidine (Catapres) 0.1 mg Q6H PRN PO SBP >160; Start 04/22/16 at 21:30 MARIO CARTWRIGHT Apr 23, 2016 10:14
[2016-04-23 10:46] LABS: EOSINOPHILS # 0.3 10^3/ul (0.0-0.5); LYMPHOCYTES # 0.5 10^3/ul (0.8-2.9); MONOCYTE # 0.4 10^3/ul (0.3-0.9); NEUTROPHIL # 0.1 10^3/ul (1.6-7.5)
[2016-04-23 14:29] VITALS: BP 134/88; PULSE 76
[2016-04-23] MEDS: HYDROCODONE/APAP (5/325) TAB PO PRN (14:38)
--- NOTE | 2016-04-23 14:57 | CONS ---
Date/Time of Note Date/Time of Note DATE: 04/23/16 TIME: 14:57 Consult Date/Type/Reason Admit Date/Time Apr 16, 2016 at 23:36 Initial Consult Date 04/18/16 Type of Consultation: Card Ordering Provider: NAKIA LUNA MD Objective Vital Signs Date Time Temp Pulse Resp B/P Pulse Ox O2 Delivery O2 Flow Rate FiO2 04/23/16 14:29 76 134/88 04/23/16 07:38 98.3 20 97 04/22/16 19:49 Room Air 04/19/16 10:00 2 Intake and Output 04/22/16 04/22/16 04/23/16 15:00 23:00 07:00 Intake Total 100 ml 1420 ml 1340 ml Output Total 1400 ml Balance 100 ml 1420 ml -60 ml Results/Medications Result Diagram: 04/23/16 0539 04/23/16 0539 Results 24 hrs Laboratory Tests Test 04/23/16 05:39 Anion Gap 16 Blood Urea Nitrogen 11 Calcium Level 8.9 Carbon Dioxide Level 25 Chloride Level 101 Creatinine 0.64 Eosinophils # 0.3 Eosinophils % 24.0 H Glucose Level 88 Hematocrit 38.3 L Hemoglobin 13.0 L Lymphocytes # 0.5 L Lymphocytes % 39.0 Mean Corpuscular Hemoglobin 29.1 Mean Corpuscular Hemoglobin Concent 33.9 Mean Corpuscular Volume 85.7 Mean Platelet Volume 9.1 Monocytes # 0.4 Monocytes % 28.0 H Neutrophils # 0.1 L Neutrophils % 9.0 L Platelet Count 227 Potassium Level 3.9 Red Blood Count 4.47 L Red Cell Distribution Width 14.1 Sodium Level 138 White Blood Count 1.4 L Medications Current Medications Acetaminophen (Tylenol Tab) 650 mg Q4H PRN PO PAIN AND OR ELEVATED TEMP Last administered on 04/19/16 19:05; Admin Dose 650 MG; Start 04/17/16 at 01:00 Enoxaparin Sodium (Lovenox) 40 mg DAILY SC Last administered on 04/23/16 09:43 ; Admin Dose 40 MG; Start 04/17/16 at 09:00 Acetaminophen/ Hydrocodone Bitart ([place] (5/325)) 1 tab Q4H PRN PO PAIN Last administered on 04/23/16 14:38; Admin Dose 1 TAB; Start 04/17/16 at 01:00 Morphine Sulfate (morphine) 2 mg Q4H PRN IV SEVERE PAIN Last administered on 21:04; Admin Dose 2 MG; Start 04/17/16 at 01:00 Zolpidem Tartrate (Ambien) 5 mg HS PRN PO INSOMNIA Last administered on 01:26; Admin Dose 5 MG; Start 04/17/16 at 01:00 Eye Lubricant (Artificial Tears Oph) 2 drop Q6H PRN BOTH EYES DRY EYES Last administered on 04/23/16 09:47; Admin Dose 2 DROP; Start 04/17/16 at 19:00 Azithromycin (Zithromax) 1,200 mg Q7D PO Last administered on 04/18/16 14:05; Admin Dose 1,200 MG; Start 04/18/16 at 12:30 Diphenhydramine HCl (Benadryl) 25 mg Q6H PRN IV ITCHING Last administered on 08:49; Admin Dose 25 MG; Start 04/19/16 at 21:00 Senna (Senokot) 2 tab BID PO Last administered on 04/23/16 09:36; Admin Dose 2 TAB; Start 04/19/16 at 21:00 Nystatin 5 ml 5 ml QID PO Last administered on 04/23/16 14:31; Admin Dose 5 ML ; Start 04/19/16 at 21:00 Meropenem (Merrem 1 Gm/100 ml (Pmx)) 100 ml @ 200 mls/hr Q8 IVPB Last administered on 04/23/16 14:38; Admin Dose 200 MLS/HR; Start 04/19/16 at 22:00 Fluconazole (Diflucan) 100 mg DAILY PO Last administered on 04/23/16 09:36; Admin Dose 100 MG; Start 04/20/16 at 12:30 Atovaquone (Mepron) 1,500 mg DAILY PO Last administered on 04/23/16 09:36; Admin Dose 1,500 MG; Start 04/21/16 at 09:00 Amlodipine Besylate (Norvasc) 10 mg DAILY PO Last administered on 04/22/16 21: 36; Admin Dose 10 MG; Start 04/22/16 at 21:30 Clonidine (Catapres) 0.1 mg Q6H PRN PO SBP >160; Start 04/22/16 at 21:30 Assessment/Plan Problems: (1) Syncope (2) Cough (3) Leukopenia (4) Chest pain (5) Jud infection, oral (6) Sepsis Additional Assessment/Plan Contineu meds ID care Hem onc care cardiac martinez stable out pt f/u and ischemia work up and PAD work up MUSA REYES MD Apr 23, 2016 14:57
--- NOTE | 2016-04-23 17:37 | CONS ---
AVERY SHAHID UNIFORMER 04/23/16 1737: Date/Time of Note Date/Time of Note DATE: 04/23/16 TIME: 17:36 Assessment/Plan Assessment/Plan Chief Complaint/Hosp Course assessment/impression - advanced AIDS, on-compliant with medications - neutropenia - fever on admission, low grade temp 100F after BMBx--> now remains afebrile - h/o cough on admission, resolved. CXR showed overinflated lungs, CT showed benign appearing sub-centimeter nodule seen at the bilateral lung bases - E. coli in urine, likely colonization - LUE weakness and pain due to tear of rotator cuff muscles and bicep tendon anchor - L cervical and supraclavicular lymphadenopathy probably due to HIV infection - h/o thrush so far: crypto antigen negative, QTBG negative recommendations - pending results: cocci serology, AFB blood culture (re-ordered, results pending), CMV quantitative PCR, HIV genotype, HIV viral load and CD4 count - discussed with Dr. Welch on 04/20/2016 and 04/21/2016: so far no e/o opportunistic infection or malignancy in bone marrow. Requested special stains for viruses, the result is pending - the bone marrow is negative for all stains with no evidence of viral infection ; will start him on antiretroviral meds: Stribild (tenofovir/emtricitabine/ elvitaegravir/cobicistat) and darunavir 800mg (darunavir dosed at 800mg to simulate Prezcobix [darunavir 800mg/cobicistat 150mg) today. Pt agrees with this plan. Will f/u CMV stains once it becomes available. - I stressed that Pt must be compliant with his ARVs to reconstitute his immune function - I recommend referral to PT and orthopedic re. LUE and L hand pain due to tear of rotator cuff muscles and bicep tendon anchor - complete meropenem (04/19/2016-) on 04/24/2016-->then I recommend levofloxacin 500mg PO daily until his absolute neutrophil counts >1000 - continue flucon for thrush until 04/24/2016 - continue atovaquone and Azithromycin for PCP and MAC prophylaxis while waiting for CD4 count to come back (Bactrim was changed to atovaquone due to neutropenia) - recommend outpt dermatology f/u for possible skin biopsy - management d/w Pt and pt's RN - Above d/w Dr. Melara Problems: Consultation Date/Type/Reason Admit Date/Time Apr 16, 2016 at 23:36 Initial Consult Date 04/17/16 Type of Consultation: Infectious Disease Referring Provider: NAKIA LUNA MD 24 HR Interval Summary Free Text/Dictation "No new rashes, but with erythema of the bilateral arms, face and chest" documented on admission. Pt reports generalized pruritus. C/o same pain and weakness of BUE x 1 year. No diarrhea or dysuria. Pt asking when he can go home. Remains afebrile with no new issues/complaints per RN Lea. Exam/Review of Systems Vital Signs Vitals Vital Signs Date Time Temp Pulse Resp B/P Pulse Ox O2 Delivery O2 Flow Rate FiO2 04/23/16 14:29 76 134/88 04/23/16 07:38 98.3 20 97 04/22/16 19:49 Room Air 04/19/16 10:00 2 Intake and Output 04/22/16 04/22/16 04/23/16 15:00 23:00 07:00 Intake Total 100 ml 1420 ml 1340 ml Output Total 1400 ml Balance 100 ml 1420 ml -60 ml Exam Constitutional: alert, oriented, well developed Psych: nl mood/affect, no complaints Head: atraumatic, normocephalic Neck: supple, No jvd Respiratory: clear to auscultation, normal air movement, No wheezing Cardiovascular: nl pulses, regular rate and rhythm Gastrointestinal: bowel sounds (normal), non-tender, soft Musculoskeletal: muscle tone (decreased on LUE), muscle weakness (LUE), range of motion (limited ROM of LUE including fingers) Extremities: normal pulses, No clubbing, No cyanosis, No edema Neurological: nl mental status, nl speech Skin: nl turgor, rash or lesions (erythema with slight papular rash on BUE, erythema with areas of hyperpigmentation noted to BLE, jaspreet face) Results MICROSCOPIC DIAGNOSIS: BONE MARROW BIOPSY PATHOLOGY 04/19/16: Peripheral blood: -- Leukopenia with absolute neutropenia. -- No dysplastic granulocytes or blasts are identified. Right posterior iliac crest bone marrow aspiration, clot and biopsy: -- Reduced granulocytic precursors with left-shifted maturation. -- All special stains are negative for acid-fast bacilli, fungal organisms, parasites and are also negative for viral infections. -- No granulomas are identified. -- There is no evidence of malignancy. Bone marrow flow cytometry: -- No immunophenotypic evidence of a lymphoproliferative disorder, acute leukemia, increase in blasts or plasma cell neoplasm. -- T-cells with reverse CD4:CD8 ratio compatible with the history of HIV infection. Result Diagram: 04/23/1639 04/23/1639 Results 24 hrs Laboratory Tests Test 04/23/16 05:39 Anion Gap 16 Blood Urea Nitrogen 11 Calcium Level 8.9 Carbon Dioxide Level 25 Chloride Level 101 Creatinine 0.64 Eosinophils # 0.3 Eosinophils % 24.0 H Glucose Level 88 Hematocrit 38.3 L Hemoglobin 13.0 L Lymphocytes # 0.5 L Lymphocytes % 39.0 Mean Corpuscular Hemoglobin 29.1 Mean Corpuscular Hemoglobin Concent 33.9 Mean Corpuscular Volume 85.7 Mean Platelet Volume 9.1 Monocytes # 0.4 Monocytes % 28.0 H Neutrophils # 0.1 L Neutrophils % 9.0 L Platelet Count 227 Potassium Level 3.9 Red Blood Count 4.47 L Red Cell Distribution Width 14.1 Sodium Level 138 White Blood Count 1.4 L Medications Medications Current Medications Acetaminophen (Tylenol Tab) 650 mg Q4H PRN PO PAIN AND OR ELEVATED TEMP Last administered on 04/19/16 19:05; Admin Dose 650 MG; Start 04/17/16 at 01:00 Enoxaparin Sodium (Lovenox) 40 mg DAILY SC Last administered on 04/23/16 09:43 ; Admin Dose 40 MG; Start 04/17/16 at 09:00 Acetaminophen/ Hydrocodone Bitart ([place] (5/325)) 1 tab Q4H PRN PO PAIN Last administered on 04/23/16 14:38; Admin Dose 1 TAB; Start 04/17/16 at 01:00 Morphine Sulfate (morphine) 2 mg Q4H PRN IV SEVERE PAIN Last administered on 21:04; Admin Dose 2 MG; Start 04/17/16 at 01:00 Zolpidem Tartrate (Ambien) 5 mg HS PRN PO INSOMNIA Last administered on 01:26; Admin Dose 5 MG; Start 04/17/16 at 01:00 Eye Lubricant (Artificial Tears Oph) 2 drop Q6H PRN BOTH EYES DRY EYES Last administered on 04/23/16 09:47; Admin Dose 2 DROP; Start 04/17/16 at 19:00 Azithromycin (Zithromax) 1,200 mg Q7D PO Last administered on 04/18/16 14:05; Admin Dose 1,200 MG; Start 04/18/16 at 12:30 Diphenhydramine HCl (Benadryl) 25 mg Q6H PRN IV ITCHING Last administered on 08:49; Admin Dose 25 MG; Start 04/19/16 at 21:00 Senna (Senokot) 2 tab BID PO Last administered on 04/23/16 09:36; Admin Dose 2 TAB; Start 04/19/16 at 21:00 Nystatin 5 ml 5 ml QID PO Last administered on 04/23/16 14:31; Admin Dose 5 ML ; Start 04/19/16 at 21:00 Meropenem (Merrem 1 Gm/100 ml (Pmx)) 100 ml @ 200 mls/hr Q8 IVPB Last administered on 04/23/16 14:38; Admin Dose 200 MLS/HR; Start 04/19/16 at 22:00 Fluconazole (Diflucan) 100 mg DAILY PO Last administered on 04/23/16 09:36; Admin Dose 100 MG; Start 04/20/16 at 12:30 Atovaquone (Mepron) 1,500 mg DAILY PO Last administered on 04/23/16 09:36; Admin Dose 1,500 MG; Start 04/21/16 at 09:00 Amlodipine Besylate (Norvasc) 10 mg DAILY PO Last administered on 04/22/16 21: 36; Admin Dose 10 MG; Start 04/22/16 at 21:30 Clonidine (Catapres) 0.1 mg Q6H PRN PO SBP >160; Start 04/22/16 at 21:30 JACK MELARA M.D. 04/25/16 1035: Assessment/Plan Assessment/Plan Chief Complaint/Hosp Course Saritha attestation: I discussed the management with HORTENSIA Shahid and agree with above. Problems: Exam/Review of Systems Results Result Diagram: 04/23/16 0539 04/23/16 0539 AVERY SHAHID NP Apr 23, 2016 17:37 JACK MELARA M.D. Apr 25, 2016 10:35
[2016-04-23 19:00] VITALS: BP 142/73; RESP 19
[2016-04-23] MEDS: ELVITEGR/COBICIST/EMTRIC/TENOF 1 EACH TABLET PO SCH ×2 (19:00→20:03)
[2016-04-23] MEDS: DARUNAVIR ETHANOLATE 800 MG TABLET PO SCH ×2 (19:00→20:03)
[2016-04-23 19:13] LABS: LYMPHOCYTE - % CD4 (HELPER) 1 % (30-61); LYMPHOCYTE - %CD8 (SUPPRESSOR) 50 % (12-42); LYMPHOCYTE - ABSOLUTE CD4 <20 cells/uL (490-1740); LYMPHOCYTE - ABSOLUTE CD8 279 cells/uL (180-1170); LYMPHOCYTE - CD4/CD8 RATIO 0.02 (0.86-5.00)
[2016-04-23] MEDS: morphine 2 MG INJ IV PRN (20:04)
[2016-04-23] MEDS: DIPHENHYDRAMINE 50 MG INJ IV PRN (22:02)
[2016-04-24] MEDS: MEROPENEM 1 GM/100 ML (PMX) 100 ML IVPB SCH ×2 (05:32→14:24)
[2016-04-24 06:37] LABS: ADD SCAN DIFF NO
[2016-04-24 06:49] LABS: ABNORMAL IP MESSAGE 1; HEMATOCRIT 38.5 % (42.0-52.0); HEMOGLOBIN 13.1 g/dl (14.0-18.0); MEAN CORPUSCULAR HEMOGLOBIN 29.3 pg (29.0-33.0); MEAN CORPUSCULAR VOLUME 86.1 fl (82.0-101.0); MEAN PLATELET VOLUME 9.5 fl (7.4-10.4); PLATELET COUNT 235 10^3/UL (140-415); RED BLOOD COUNT 4.47 10^6/ul (4.70-6.10); RED CELL DISTRIBUTION WIDTH 14.3 % (11.5-14.5); WHITE BLOOD COUNT 1.5 10^3/ul (4.8-10.8)
[2016-04-24 07:07] LABS: POTASSIUM 3.9 mmol/L (3.5-5.1)
[2016-04-24 07:10] LABS: CREATININE 0.68 mg/dl (0.61-1.24)
[2016-04-24 07:11] LABS: CALCIUM 9.1 mg/dl (8.4-10.2)
[2016-04-24 07:37] VITALS: BP 124/86; RESP 20
[2016-04-24] MEDS: SENNA TAB PO SCH ×2 (08:39→20:16)
[2016-04-24] MEDS: FLUCONAZOLE 100 MG TAB PO SCH (08:39)
[2016-04-24] MEDS: ELVITEGR/COBICIST/EMTRIC/TENOF 1 EACH TABLET PO SCH (08:39)
[2016-04-24] MEDS: DARUNAVIR ETHANOLATE 800 MG TABLET PO SCH (08:39)
[2016-04-24] MEDS: ATOVAQUONE 750 MG/5 ML CUP PO SCH (08:39)
[2016-04-24] MEDS: NYSTATIN SUSP 5 ML CUP PO SCH ×4 (08:40→20:15)
[2016-04-24] MEDS: AMLODIPINE 10 MG TAB PO SCH (08:42)
[2016-04-24] MEDS: ENOXAPARIN 40 MG/0.4 ML SYG SC SCH (08:52)
[2016-04-24 10:28] LABS: EOSINOPHILS # 0.3 10^3/ul (0.0-0.5); LYMPHOCYTES # 0.6 10^3/ul (0.8-2.9); MONOCYTE # 0.4 10^3/ul (0.3-0.9); NEUTROPHIL # 0.2 10^3/ul (1.6-7.5)
--- NOTE | 2016-04-24 11:48 | PN ---
Date/Time of Note Date/Time of Note DATE: 04/24/16 TIME: 11:47 Assessment/Plan VTE Prophylaxis VTE Prophylaxis Intervention: other Lines/Catheters IV [facility] Type [facility]from [facility] Saline Lock Urinary Cath still in place: No Assessment/Plan Chief Complaint/Hosp Course - AIDS, patient is not compliant with medication. Dr. Lady reese is following in infection disease consultation. Patient restarted on antiretroviral therapy. - Neutropenia and fever on admission. Continue antibiotics per ID. - Dysphagia with oral candidiasis, on fluconazole. - GNR UTI versus colonization - Anemia [address] Carias is following in hematology oncology consultation. Status post bone marrow biopsy, negative for hematologic malignancy. -Chest pain on admission. Troponins negative 3. Dr. Silver is following in cardiology consultation. - LUE and L hand pain due to tear of rotator cuff muscles and bicep tendon anchor, Dr Vance to see pt in ortho consult. Problems: Subjective 24 Hr Interval Summary Free Text/Dictation Patient has no complaints Exam/Review of Systems Vital Signs Vitals Vital Signs Date Time Temp Pulse Resp B/P Pulse Ox O2 Delivery O2 Flow Rate FiO2 04/24/16 07:37 97.7 75 20 124/86 97 04/22/16 19:49 Room Air Intake and Output 04/23/16 04/23/16 04/24/16 15:00 23:00 07:00 Intake Total 100 ml 1320 ml 670 ml Output Total 1150 ml 950 ml Balance 100 ml 170 ml -280 ml Exam Constitutional: well developed Head: atraumatic, normocephalic Neck: supple Respiratory: clear to auscultation Cardiovascular: regular rate and rhythm Gastrointestinal: non-tender, soft Extremities: normal pulses Results Result Diagram: 04/24/16 0510 04/24/16 0510 Results 24 hrs Laboratory Tests Test 04/24/16 05:10 Anion Gap 16 Blood Urea Nitrogen 14 Calcium Level 9.1 Carbon Dioxide Level 24 Chloride Level 103 Creatinine 0.68 Eosinophils # 0.3 Eosinophils % 22.0 H Glucose Level 89 Hematocrit 38.5 L Hemoglobin 13.1 L Lymphocytes # 0.6 L Lymphocytes % 40.0 Mean Corpuscular Hemoglobin 29.3 Mean Corpuscular Hemoglobin Concent 34.0 Mean Corpuscular Volume 86.1 Mean Platelet Volume 9.5 Monocytes # 0.4 Monocytes % 28.0 H Neutrophils # 0.2 L Neutrophils % 10.0 L Platelet Count 235 Potassium Level 3.9 Red Blood Count 4.47 L Red Cell Distribution Width 14.3 Sodium Level 139 White Blood Count 1.5 L Medications Medications Current Medications Acetaminophen (Tylenol Tab) 650 mg Q4H PRN PO PAIN AND OR ELEVATED TEMP Last administered on 04/19/16 19:05; Admin Dose 650 MG; Start 04/17/16 at 01:00 Enoxaparin Sodium (Lovenox) 40 mg DAILY SC Last administered on 04/24/16 08:52 ; Admin Dose 40 MG; Start 04/17/16 at 09:00 Acetaminophen/ Hydrocodone Bitart ([place] (5/325)) 1 tab Q4H PRN PO PAIN Last administered on 04/23/16 14:38; Admin Dose 1 TAB; Start 04/17/16 at 01:00 Morphine Sulfate (morphine) 2 mg Q4H PRN IV SEVERE PAIN Last administered on 20:04; Admin Dose 2 MG; Start 04/17/16 at 01:00 Zolpidem Tartrate (Ambien) 5 mg HS PRN PO INSOMNIA Last administered on 01:26; Admin Dose 5 MG; Start 04/17/16 at 01:00 Eye Lubricant (Artificial Tears Oph) 2 drop Q6H PRN BOTH EYES DRY EYES Last administered on 04/23/16 09:47; Admin Dose 2 DROP; Start 04/17/16 at 19:00 Azithromycin (Zithromax) 1,200 mg Q7D PO Last administered on 04/18/16 14:05; Admin Dose 1,200 MG; Start 04/18/16 at 12:30 Diphenhydramine HCl (Benadryl) 25 mg Q6H PRN IV ITCHING Last administered on 22:02; Admin Dose 25 MG; Start 04/19/16 at 21:00 Senna (Senokot) 2 tab BID PO Last administered on 04/24/16 08:39; Admin Dose 2 TAB; Start 04/19/16 at 21:00 Nystatin 5 ml 5 ml QID PO Last administered on 04/24/16 08:40; Admin Dose 5 ML ; Start 04/19/16 at 21:00 Meropenem (Merrem 1 Gm/100 ml (Pmx)) 100 ml @ 200 mls/hr Q8 IVPB Last administered on 04/24/16 05:32; Admin Dose 200 MLS/HR; Start 04/19/16 at 22:00 Fluconazole (Diflucan) 100 mg DAILY PO Last administered on 04/24/16 08:39; Admin Dose 100 MG; Start 04/20/16 at 12:30 Atovaquone (Mepron) 1,500 mg DAILY PO Last administered on 04/24/16 08:39; Admin Dose 1,500 MG; Start 04/21/16 at 09:00 Amlodipine Besylate (Norvasc) 10 mg DAILY PO Last administered on 04/24/16 08: 42; Admin Dose 10 MG; Start 04/22/16 at 21:30 Clonidine (Catapres) 0.1 mg Q6H PRN PO SBP >160; Start 04/22/16 at 21:30 MARIO CARTWRIGHT Apr 24, 2016 11:48
--- NOTE | 2016-04-24 17:05 | CONS ---
AVERY SHAHID DIRECTOR RELIGIOUS EDUCATION 04/24/16 1705: Date/Time of Note Date/Time of Note DATE: 04/24/16 TIME: 17:04 Assessment/Plan Assessment/Plan Chief Complaint/Hosp Course assessment/impression - advanced AIDS, on-compliant with medications - neutropenia - fever on admission, low grade temp 100F after BMBx--> now remains afebrile - h/o cough on admission, resolved. CXR showed overinflated lungs, CT showed benign appearing sub-centimeter nodule seen at the bilateral lung bases - E. coli in urine, likely colonization - LUE weakness and pain due to tear of rotator cuff muscles and bicep tendon anchor - L cervical and supraclavicular lymphadenopathy probably due to HIV infection - h/o thrush so far: crypto antigen negative, QTBG negative recommendations - pending results: cocci serology, AFB blood culture (re-ordered, results pending), CMV quantitative PCR, HIV genotype, HIV viral load and CD4 count - discussed with Dr. Welch on 04/20/2016 and 04/21/2016: so far no e/o opportunistic infection or malignancy in bone marrow. Requested special stains for viruses, the result is pending - the bone marrow is negative for all stains with no evidence of viral infection ; will start him on antiretroviral meds: Stribild (tenofovir/emtricitabine/ elvitaegravir/cobicistat) and darunavir 800mg (darunavir dosed at 800mg to simulate Prezcobix [darunavir 800mg/cobicistat 150mg) today. Pt agrees with this plan. Will f/u CMV stains once it becomes available. - I stressed that Pt must be compliant with his ARVs to reconstitute his immune function - discontinue meropenem (04/19/2016-) today and start levofloxacin 500mg PO daily until his absolute neutrophil counts >1000 - discontinue flucon for thrush today - continue atovaquone and Azithromycin for PCP and MAC prophylaxis as CD4 count <20 - appreciate orthopedic input; recommend outpt orthopedic f/u for possible steroid injection once ANC >1000 - recommend outpt dermatology f/u for possible skin biopsy - management d/w Pt and pt's RN - Above d/w Dr. Melara Problems: Consultation Date/Type/Reason Admit Date/Time Apr 16, 2016 at 23:36 Initial Consult Date 04/17/16 Type of Consultation: Infectious Disease Referring Provider: NAKIA LUNA MD 24 HR Interval Summary Free Text/Dictation Seen by Ortho and remains clinically unchanged per THOMAS Salas. Pt tolerating HIV meds. Status pruritus has improved after given IV Benadryl. Exam/Review of Systems Vital Signs Vitals Vital Signs Date Time Temp Pulse Resp B/P Pulse Ox O2 Delivery O2 Flow Rate FiO2 04/24/16 07:37 97.7 75 20 124/86 97 04/22/16 19:49 Room Air Intake and Output 04/23/16 04/23/16 04/24/16 15:00 23:00 07:00 Intake Total 100 ml 1320 ml 670 ml Output Total 1150 ml 950 ml Balance 100 ml 170 ml -280 ml Exam Constitutional: alert, oriented, well developed Psych: nl mood/affect, no complaints Head: atraumatic, normocephalic ENMT: no thrush noted Neck: supple, No jvd Respiratory: clear to auscultation, normal air movement, No wheezing Cardiovascular: nl pulses, regular rate and rhythm Gastrointestinal: bowel sounds (normal), non-tender, soft Musculoskeletal: muscle tone (decreased on LUE), muscle weakness (LUE), range of motion (limited ROM of LUE including fingers) Extremities: normal pulses, No clubbing, No cyanosis, No edema Neurological: nl mental status, nl speech, nl gait Skin: nl turgor, rash or lesions (erythema with slight papular rash on BUE, erythema with areas of hyperpigmentation noted to BLE, jaspreet face) Results MICROSCOPIC DIAGNOSIS: BONE MARROW BIOPSY PATHOLOGY 04/19/16: Peripheral blood: -- Leukopenia with absolute neutropenia. -- No dysplastic granulocytes or blasts are identified. Right posterior iliac crest bone marrow aspiration, clot and biopsy: -- Reduced granulocytic precursors with left-shifted maturation. -- All special stains are negative for acid-fast bacilli, fungal organisms, parasites and are also negative for viral infections. -- No granulomas are identified. -- There is no evidence of malignancy. Bone marrow flow cytometry: -- No immunophenotypic evidence of a lymphoproliferative disorder, acute leukemia, increase in blasts or plasma cell neoplasm. -- T-cells with reverse CD4:CD8 ratio compatible with the history of HIV infection. Result Diagram: 04/24/16 0510 04/24/16 0510 Results 24 hrs Laboratory Tests Test 04/24/16 05:10 Anion Gap 16 Blood Urea Nitrogen 14 Calcium Level 9.1 Carbon Dioxide Level 24 Chloride Level 103 Creatinine 0.68 Eosinophils # 0.3 Eosinophils % 22.0 H Glucose Level 89 Hematocrit 38.5 L Hemoglobin 13.1 L Lymphocytes # 0.6 L Lymphocytes % 40.0 Mean Corpuscular Hemoglobin 29.3 Mean Corpuscular Hemoglobin Concent 34.0 Mean Corpuscular Volume 86.1 Mean Platelet Volume 9.5 Monocytes # 0.4 Monocytes % 28.0 H Neutrophils # 0.2 L Neutrophils % 10.0 L Platelet Count 235 Potassium Level 3.9 Red Blood Count 4.47 L Red Cell Distribution Width 14.3 Sodium Level 139 White Blood Count 1.5 L Medications Medications Current Medications Acetaminophen (Tylenol Tab) 650 mg Q4H PRN PO PAIN AND OR ELEVATED TEMP Last administered on 04/19/16 19:05; Admin Dose 650 MG; Start 04/17/16 at 01:00 Enoxaparin Sodium (Lovenox) 40 mg DAILY SC Last administered on 04/24/16 08:52 ; Admin Dose 40 MG; Start 04/17/16 at 09:00 Acetaminophen/ Hydrocodone Bitart ([place] (5/325)) 1 tab Q4H PRN PO PAIN Last administered on 04/23/16 14:38; Admin Dose 1 TAB; Start 04/17/16 at 01:00 Morphine Sulfate (morphine) 2 mg Q4H PRN IV SEVERE PAIN Last administered on 20:04; Admin Dose 2 MG; Start 04/17/16 at 01:00 Zolpidem Tartrate (Ambien) 5 mg HS PRN PO INSOMNIA Last administered on 01:26; Admin Dose 5 MG; Start 04/17/16 at 01:00 Eye Lubricant (Artificial Tears Oph) 2 drop Q6H PRN BOTH EYES DRY EYES Last administered on 04/23/16 09:47; Admin Dose 2 DROP; Start 04/17/16 at 19:00 Azithromycin (Zithromax) 1,200 mg Q7D PO Last administered on 04/18/16 14:05; Admin Dose 1,200 MG; Start 04/18/16 at 12:30 Diphenhydramine HCl (Benadryl) 25 mg Q6H PRN IV ITCHING Last administered on 22:02; Admin Dose 25 MG; Start 04/19/16 at 21:00 Senna (Senokot) 2 tab BID PO Last administered on 04/24/16 08:39; Admin Dose 2 TAB; Start 04/19/16 at 21:00 Nystatin 5 ml 5 ml QID PO Last administered on 04/24/16 14:24; Admin Dose 5 ML ; Start 04/19/16 at 21:00 Meropenem (Merrem 1 Gm/100 ml (Pmx)) 100 ml @ 200 mls/hr Q8 IVPB Last administered on 04/24/16 14:24; Admin Dose 200 MLS/HR; Start 04/19/16 at 22:00 Fluconazole (Diflucan) 100 mg DAILY PO Last administered on 04/24/16 08:39; Admin Dose 100 MG; Start 04/20/16 at 12:30 Atovaquone (Mepron) 1,500 mg DAILY PO Last administered on 04/24/16 08:39; Admin Dose 1,500 MG; Start 04/21/16 at 09:00 Amlodipine Besylate (Norvasc) 10 mg DAILY PO Last administered on 04/24/16 08: 42; Admin Dose 10 MG; Start 04/22/16 at 21:30 Clonidine (Catapres) 0.1 mg Q6H PRN PO SBP >160; Start 04/22/16 at 21:30 JACK MELARA M.D. 04/25/16 1034: Assessment/Plan Assessment/Plan Additional Assessment/Plan Saritha attestation: I discussed the management with HORTENSIA Shahid and agree with above. Exam/Review of Systems Results Result Diagram: 04/24/1610 04/24/16 0510 AVERY SHAHID NP Apr 24, 2016 17:05 JACK MELARA M.D. Apr 25, 2016 10:34
[2016-04-24] MEDS: ARTIFICIAL TEARS 15 ML OPH BOTH EYES PRN (18:07)
--- NOTE | 2016-04-24 18:48 | CONS ---
DATE OF ADMISSION: 04/16/2016 DATE OF CONSULTATION: 04/24/2016 HISTORY OF PRESENT ILLNESS: The patient is a 66-year-old male with a known history of HIV who has b een off his antiviral medication for about 6 months, who was admitted on 04/16/2016 when he came to the emergency room complaining of chest pain along with the associated cough and fever. He was also having problems with swallowing for several months. He has been seen by various specialists and is undergoing proper management. Orthopedic surgery was consulted because he was complaining of pain involving his left upper extremi ty. According to the patient, he has been having this pain and discomfort for the last 1 year and h as been managed by his primary care doctor. Denies any memorable history of trauma. Regarding his pain involving his left shoulder, it usually gets worse, if he sleeps on his left side on the left s houlder, or if during the range of motion of the left shoulder, especially during the abduction. He claims that his left shoulder pain radiates down to the left arm. He was also complaining of numbn ess and tingling involving his left hand, along with the weakness. He also admits that there is the pain in his left wrist. PHYSICAL EXAMINATION: My examination revealed a painful limit of motion of the left shoulder. Ther e was subacromial tenderness. Impingement test was positive with subacromial pain. His active rang e of motion was full with some pain. There was a mild tenderness around the left wrist. There was a hypoesthesia over the median nerve dermatome of the left hand. Tinel sign was questionably positi ve, but Phalen test was obviously positive. An MRI scan of the left shoulder was showing there is fluid in the subacromial space and also in the glenohumeral joint, which is suggestive of communication through the rotator cuff between the 2 spaces. However, actual rotator cuff was not visible and there was no obvious retraction of the rotator cuff. There were signs of tendinosis involving supraspinatus and infraspinatus. There was an increased fluid signal and thickening over the area of the biceps ankle which is suggestive of ea rly tear. DIAGNOSTIC IMPRESSION 1. Shoulder impingement syndrome of the left shoulder with signs of tendinosis of the supraspinatus , infraspinatus and biceps tendon. 2. Findings suggestive of a rotator cuff tear without obvious visible tear. 3. Possible tear at the insertion of the long head of biceps. DIAGNOSTIC IMPRESSION: Regarding left shoulder, shoulder impingement syndrome of the left shoulder with tendinosis of the rotator cuff and with findings suggestive of the rotator cuff without obvious ly visible tear or retraction and signs of possible tear at the anchoring portion of the biceps tend on. Regarding the left hand and wrist, possible presence of carpal tunnel syndrome. RECOMMENDATIONS FOR MANAGEMENT: 1. In the absence of obviously visible tear or retraction of the rotator cuff, he should be initial ly managed with the steroid injection into the subacromial space. 2. For left wrist in order to confirm the diagnosis of carpal tunnel syndrome, he needs a neurologi c evaluation including electroneurodiagnostic studies. If carpal tunnel syndrome can be documented with the electroneurodiagnostic studies, then the initial treatment should be a trial of steroid inj ection into the carpal tunnel of the left wrist. If he is persistently symptomatic in spite of the injection, then surgical release of the carpal tunnel can be considered later on. Dictated By: CHARLENE ISAACS/VINCE Conf#: [id number] DID#: [id number]
[2016-04-24 19:45] VITALS: BP 118/75; RESP 16
[2016-04-24] MEDS: DIPHENHYDRAMINE 50 MG INJ IV PRN (20:19)
[2016-04-24] MEDS: morphine 2 MG INJ IV PRN (20:20)
[2016-04-25] MEDS: LEVOFLOXACIN 500 MG TAB PO SCH (05:30)
[2016-04-25 05:59] LABS: ADD SCAN DIFF NO
[2016-04-25 06:09] LABS: ABNORMAL IP MESSAGE 1; HEMATOCRIT 38.8 % (42.0-52.0); HEMOGLOBIN 13.3 g/dl (14.0-18.0); MEAN CORPUSCULAR HEMOGLOBIN 29.4 pg (29.0-33.0); MEAN CORPUSCULAR HGB CONC 34.3 g/dl (32.0-37.0); MEAN CORPUSCULAR VOLUME 85.7 fl (82.0-101.0); MEAN PLATELET VOLUME 9.2 fl (7.4-10.4); PLATELET COUNT 233 10^3/UL (140-415); RED BLOOD COUNT 4.53 10^6/ul (4.70-6.10); RED CELL DISTRIBUTION WIDTH 14.1 % (11.5-14.5); WHITE BLOOD COUNT 1.6 10^3/ul (4.8-10.8)
[2016-04-25 06:29] LABS: POTASSIUM 4.1 mmol/L (3.5-5.1)
[2016-04-25 06:31] LABS: CREATININE 0.73 mg/dl (0.61-1.24)
[2016-04-25 06:32] LABS: CALCIUM 8.7 mg/dl (8.4-10.2)
[2016-04-25 07:27] VITALS: BP 112/71; RESP 18
[2016-04-25] MEDS: NYSTATIN SUSP 5 ML CUP PO SCH ×4 (09:00→20:48)
[2016-04-25] MEDS: SENNA TAB PO SCH ×2 (09:00→20:48)
[2016-04-25 09:48] LABS: EOSINOPHILS # 0.3 10^3/ul (0.0-0.5); LYMPHOCYTES # 0.5 10^3/ul (0.8-2.9); MONOCYTE # 0.4 10^3/ul (0.3-0.9); NEUTROPHIL # 0.1 10^3/ul (1.6-7.5)
[2016-04-25] MEDS: DARUNAVIR ETHANOLATE 800 MG TABLET PO SCH (10:07)
[2016-04-25] MEDS: ATOVAQUONE 750 MG/5 ML CUP PO SCH (10:07)
[2016-04-25] MEDS: AMLODIPINE 10 MG TAB PO SCH (10:08)
[2016-04-25] MEDS: ENOXAPARIN 40 MG/0.4 ML SYG SC SCH (10:10)
[2016-04-25] MEDS: ARTIFICIAL TEARS 15 ML OPH BOTH EYES PRN (10:18)
[2016-04-25] MEDS: ELVITEGR/COBICIST/EMTRIC/TENOF 1 EACH TABLET PO SCH (11:03)
[2016-04-25] MEDS: morphine 2 MG INJ IV PRN ×2 (11:04→22:04)
--- NOTE | 2016-04-25 11:06 | CONS ---
Date/Time of Note Date/Time of Note DATE: 04/25/16 TIME: 10:58 Assessment/Plan Assessment/Plan Chief Complaint/Hosp Course assessment/impression - advanced AIDS (CD<20, viral [id number] copies), non-compliant with medications. Restarted on Stribild and darunavir during this admission - neutropenia s/p BMBx, no e/o infections or malignancy at this time. CMV PCR in serum was <200, cocci and crypto negative, QTB gold negative - h/o fever on admission, low grade temp 100F after BMBx-->at present afebrile - h/o cough on admission, resolved. CXR showed overinflated lungs, CT showed benign appearing sub-centimeter nodule seen at the bilateral lung bases - h/o E. coli in urine, likely colonization. completed treatment for this - LUE weakness and pain due to tear of rotator cuff muscles and bicep tendon anchor - L cervical and supraclavicular lymphadenopathy probably due to HIV infection - h/o thrush - hyperpigmented lesions on b/l LE x several months according to Pt recommendations - pending results: AFB blood culture, HIV genotype, CMV IHC stain - I recommended referral to a cafeteria attendant for skin Bx - continue Stribild (tenofovir/emtricitabine/elvitaegravir/cobicistat) and darunavir 800mg (darunavir dosed at 800mg to simulate Prezcobix [darunavir 800mg /cobicistat 150mg), prophylaxis (atovaquone and azithromycin). I stressed that Pt must be compliant with his ARVs to reconstitute his immune function - continue levofloxacin 500mg PO daily until his neutropenia resolves - OK for discharge from ID standpoint. I instructed Pt to follow up with Dr. Zuly Pradhan for neutropenia, HIV care and referral to a cafeteria attendant and physician office assistant management d/w Pt Problems: Consultation Date/Type/Reason Admit Date/Time Apr 16, 2016 at 23:36 Initial Consult Date 04/18/16 Type of Consultation: Infectious Disease Referring Provider: NAKIA LUNA MD 24 HR Interval Summary Constitutional: no complaints Detailed Summary Eyes: no complaints ENT: no complaints Respiratory: no complaints Cardiovascular: no complaints Gastrointestinal: no complaints Genitourinary: no complaints Musculoskeletal: bone/joint pain (L shoulder), restricted range of motion Skin: skin lesions (b/l LE) Neurologic: focal-weakness (LUE and L hand) Exam/Review of Systems Vital Signs Vitals Vital Signs Date Time Temp Pulse Resp B/P Pulse Ox O2 Delivery O2 Flow Rate FiO2 04/25/16 07:27 98.2 81 18 112/71 98 04/22/16 19:49 Room Air Intake and Output 04/24/16 04/24/16 04/25/16 15:00 23:00 07:00 Intake Total 100 ml 1320 ml 680 ml Output Total 800 ml 1400 ml Balance 100 ml 520 ml -720 ml Exam Constitutional: alert, oriented, well developed Psych: nl mood/affect, no complaints Head: atraumatic, normocephalic Eyes: nl conjunctiva, nl lids ENMT: nl external ears & nose, nl nasal mucosa & septum Neck: supple Musculoskeletal: muscle weakness (LUE and L hand), range of motion (L shoulder diminished), No swelling Extremities: No edema Neurological: focal weakness (weakness of L hand) Skin: rash or lesions (hyperpigmented lesions on b/l LE) Results Result Diagram: 04/25/16 0508 04/25/16 0538 Results 24 hrs Laboratory Tests Test 04/25/16 05:08 04/25/16 05:38 Basophils # 0.0 Basophils % 1.0 Differential Comment MANUAL DIFF Eosinophils # 0.3 Eosinophils % 16.0 H Hematocrit 38.8 L Hemoglobin 13.3 L Lymphocytes # 0.5 L Lymphocytes % 34.0 Mean Corpuscular Hemoglobin 29.4 Mean Corpuscular Hemoglobin Concent 34.3 Mean Corpuscular Volume 85.7 Mean Platelet Volume 9.2 Monocytes # 0.4 Monocytes % 26.0 H Neutrophils # 0.1 L Neutrophils % 8.0 L Platelet Count 233 Reactive Lymphocytes % 15.0 Red Blood Count 4.53 L Red Cell Distribution Width 14.1 White Blood Count 1.6 L Anion Gap 15 Blood Urea Nitrogen 16 Calcium Level 8.7 Carbon Dioxide Level 25 Chloride Level 104 Creatinine 0.73 Glucose Level 85 Potassium Level 4.1 Sodium Level 140 Medications Medications Current Medications Acetaminophen (Tylenol Tab) 650 mg Q4H PRN PO PAIN AND OR ELEVATED TEMP Last administered on 04/19/16t 19:05; Admin Dose 650 MG; Start 04/17/16 at 01:00 Enoxaparin Sodium (Lovenox) 40 mg DAILY SC Last administered on 04/25/16 10:10 ; Admin Dose 40 MG; Start 04/17/16 at 09:00 Acetaminophen/ Hydrocodone Bitart ([place] (5/325)) 1 tab Q4H PRN PO PAIN Last administered on 04/23/16 14:38; Admin Dose 1 TAB; Start 04/17/16 at 01:00 Morphine Sulfate (morphine) 2 mg Q4H PRN IV SEVERE PAIN Last administered on 20:20; Admin Dose 2 MG; Start 04/17/16 at 01:00 Zolpidem Tartrate (Ambien) 5 mg HS PRN PO INSOMNIA Last administered on 01:26; Admin Dose 5 MG; Start 04/17/16 at 01:00 Eye Lubricant (Artificial Tears Oph) 2 drop Q6H PRN BOTH EYES DRY EYES Last administered on 04/25/16 10:18; Admin Dose 2 DROP; Start 04/17/16 at 19:00 Azithromycin (Zithromax) 1,200 mg Q7D PO Last administered on 04/18/16 14:05; Admin Dose 1,200 MG; Start 04/18/16 at 12:30 Diphenhydramine HCl (Benadryl) 25 mg Q6H PRN IV ITCHING Last administered on 20:19; Admin Dose 25 MG; Start 04/19/16 at 21:00 Senna (Senokot) 2 tab BID PO Last administered on 04/24/16 08:39; Admin Dose 2 TAB; Start 04/19/16 at 21:00 Nystatin (Nystatin Susp) 5 ml QID PO Last administered on 04/24/16 20:15; Admin Dose 5 ML; Start 04/19/16 at 21:00 Atovaquone (Mepron) 1,500 mg DAILY PO Last administered on 04/25/16 10:07; Admin Dose 1,500 MG; Start 04/21/16 at 09:00 Amlodipine Besylate (Norvasc) 10 mg DAILY PO Last administered on 04/25/16 10: 08; Admin Dose 10 MG; Start 04/22/16 at 21:30 Clonidine (Catapres) 0.1 mg Q6H PRN PO SBP >160; Start 04/22/16 at 21:30 Levofloxacin (Levaquin) 500 mg DAILY@06 PO Last administered on 04/25/16t 05:30 ; Admin Dose 500 MG; Start 04/25/16 at 06:00 JACK LAIRD M.D. Apr 25, 2016 11:06
[2016-04-25] MEDS: AZITHROMYCIN 600 MG TAB PO SCH (13:25)
--- NOTE | 2016-04-25 18:21 | PN ---
Date/Time of Note Date/Time of Note DATE: 04/25/16 TIME: 18:21 Assessment/Plan VTE Prophylaxis VTE Prophylaxis Intervention: SCD's Lines/Catheters IV [facility]ter Type (from [facility]): [facility] Lock Urinary Cath still in place: No Assessment/Plan Chief Complaint/Hosp Course Assessment and plan - AIDS, patient is not compliant with medication. Dr. Lady reese is following in infection disease consultation. Patient restarted on antiretroviral therapy. - Neutropenia and fever on admission. Continue antibiotics per ID. - Dysphagia with oral candidiasis, on fluconazole. - GNR UTI versus colonization - Anemia [address] Carias is following in hematology oncology consultation. Status post bone marrow biopsy, negative for hematologic malignancy. -Chest pain on admission. Troponins negative 3. Dr. Silver is following in cardiology consultation. - LUE and L hand pain due to tear of rotator cuff muscles and bicep tendon anchor, Dr Vance, ortho consult is appreciated. Further recommendations based on clinical course. Plan of care discussed with Dr. Walden. Problems: Subjective 24 Hr Interval Summary Free Text/Dictation Patient is afebrile, pain is well controlled. Exam/Review of Systems Vital Signs Vitals Vital Signs Date Time Temp Pulse Resp B/P Pulse Ox O2 Delivery O2 Flow Rate FiO2 04/25/16 07:27 98.2 81 18 112/71 98 04/22/16 19:49 Room Air Intake and Output 04/24/16 04/24/16 04/25/16 15:00 23:00 07:00 Intake Total 100 ml 1320 ml 680 ml Output Total 800 ml 1400 ml Balance 100 ml 520 ml -720 ml Exam Constitutional: alert, oriented Psych: no complaints Head: atraumatic, normocephalic Eyes: nl conjunctiva ENMT: nl external ears & nose Neck: non-tender, supple Respiratory: clear to auscultation Cardiovascular: nl pulses, regular rate and rhythm Gastrointestinal: non-tender, soft Musculoskeletal: nl extremities to inspection Extremities: normal pulses Neurological: THERAPIST RRT II-XII intact Results Result Diagram: 04/25/16 0508 04/25/16 0538 Results 24 hrs Laboratory Tests Test 04/25/16 05:08 04/25/16 05:38 Basophils # 0.0 Basophils % 1.0 Differential Comment MANUAL DIFF Eosinophils # 0.3 Eosinophils % 16.0 H Hematocrit 38.8 L Hemoglobin 13.3 L Lymphocytes # 0.5 L Lymphocytes % 34.0 Mean Corpuscular Hemoglobin 29.4 Mean Corpuscular Hemoglobin Concent 34.3 Mean Corpuscular Volume 85.7 Mean Platelet Volume 9.2 Monocytes # 0.4 Monocytes % 26.0 H Neutrophils # 0.1 L Neutrophils % 8.0 L Platelet Count 233 Reactive Lymphocytes % 15.0 Red Blood Count 4.53 L Red Cell Distribution Width 14.1 White Blood Count 1.6 L Anion Gap 15 Blood Urea Nitrogen 16 Calcium Level 8.7 Carbon Dioxide Level 25 Chloride Level 104 Creatinine 0.73 Glucose Level 85 Potassium Level 4.1 Sodium Level 140 Medications Medications Current Medications Acetaminophen (Tylenol Tab) 650 mg Q4H PRN PO PAIN AND OR ELEVATED TEMP Last administered on 04/19/16 19:05; Admin Dose 650 MG; Start 04/17/16 at 01:00 Enoxaparin Sodium (Lovenox) 40 mg DAILY SC Last administered on 04/25/16 10:10 ; Admin Dose 40 MG; Start 04/17/16 at 09:00 Acetaminophen/ Hydrocodone Bitart ([place] (5/325)) 1 tab Q4H PRN PO PAIN Last administered on 04/23/16 14:38; Admin Dose 1 TAB; Start 04/17/16 at 01:00 Morphine Sulfate (morphine) 2 mg Q4H PRN IV SEVERE PAIN Last administered on 11:04; Admin Dose 2 MG; Start 04/17/16 at 01:00 Zolpidem Tartrate (Ambien) 5 mg HS PRN PO INSOMNIA Last administered on 01:26; Admin Dose 5 MG; Start 04/17/16 at 01:00 Eye Lubricant (Artificial Tears Oph) 2 drop Q6H PRN BOTH EYES DRY EYES Last administered on 04/25/16 10:18; Admin Dose 2 DROP; Start 04/17/16 at 19:00 Azithromycin (Zithromax) 1,200 mg Q7D PO Last administered on 04/25/16 13:25; Admin Dose 1,200 MG; Start 04/18/16 at 12:30 Diphenhydramine HCl (Benadryl) 25 mg Q6H PRN IV ITCHING Last administered on 20:19; Admin Dose 25 MG; Start 04/19/16 at 21:00 Senna (Senokot) 2 tab BID PO Last administered on 04/24/16 08:39; Admin Dose 2 TAB; Start 04/19/16 at 21:00 Nystatin (Nystatin Susp) 5 ml QID PO Last administered on 04/24/16 20:15; Admin Dose 5 ML; Start 04/19/16 at 21:00 Atovaquone (Mepron) 1,500 mg DAILY PO Last administered on 04/25/16 10:07; Admin Dose 1,500 MG; Start 04/21/16 at 09:00 Amlodipine Besylate (Norvasc) 10 mg DAILY PO Last administered on 04/25/16 10: 08; Admin Dose 10 MG; Start 04/22/16 at 21:30 Clonidine (Catapres) 0.1 mg Q6H PRN PO SBP >160; Start 04/22/16 at 21:30 Levofloxacin (Levaquin) 500 mg DAILY@06 PO Last administered on 04/25/16 05:30 ; Admin Dose 500 MG; Start 04/25/16 at 06:00 AAKASH MITCHELL Apr 25, 2016 18:21
[2016-04-25 20:15] VITALS: BP 111/76; RESP 18
[2016-04-25] MEDS: DIPHENHYDRAMINE 50 MG INJ IV PRN (22:04)
[2016-04-26 05:54] LABS: ABNORMAL IP MESSAGE 1; BASOPHILS % 1.2 % (0.0-2.0); EOSINOPHILS # 0.3 10^3/ul (0.0-0.5); EOSINOPHILS % 18.8 % (0.0-7.0); HEMATOCRIT 38.6 % (42.0-52.0); HEMOGLOBIN 13.4 g/dl (14.0-18.0); LYMPHOCYTES # 0.9 10^3/ul (0.8-2.9); MEAN CORPUSCULAR HEMOGLOBIN 29.6 pg (29.0-33.0); MEAN CORPUSCULAR HGB CONC 34.7 g/dl (32.0-37.0); MEAN CORPUSCULAR VOLUME 85.4 fl (82.0-101.0); MEAN PLATELET VOLUME 9.1 fl (7.4-10.4); MONOCYTE # 0.3 10^3/ul (0.3-0.9); NEUTROPHIL # 0.2 10^3/ul (1.6-7.5); NEUTROPHILS % 10.5 % (39.0-77.0); PLATELET COUNT 238 10^3/UL (140-415); RED BLOOD COUNT 4.52 10^6/ul (4.70-6.10); WHITE BLOOD COUNT 1.7 10^3/ul (4.8-10.8)
[2016-04-26 06:08] LABS: POTASSIUM 4.2 mmol/L (3.5-5.1)
[2016-04-26 06:10] LABS: CREATININE 0.69 mg/dl (0.61-1.24)
[2016-04-26 06:11] LABS: CALCIUM 9.2 mg/dl (8.4-10.2)
[2016-04-26] MEDS: LEVOFLOXACIN 500 MG TAB PO SCH (06:14)
[2016-04-26 06:36] LABS: LYMPHOCYTES % 52.4 % (15.0-51.0); MONOCYTES % 17.1 % (0.0-11.0)
[2016-04-26 06:37] LABS: ADD SCAN DIFF YES
[2016-04-26 07:34] VITALS: BP 98/70; RESP 20
[2016-04-26] MEDS: ATOVAQUONE 750 MG/5 ML CUP PO SCH (08:46)
[2016-04-26] MEDS: DARUNAVIR ETHANOLATE 800 MG TABLET PO SCH (08:46)
[2016-04-26] MEDS: ENOXAPARIN 40 MG/0.4 ML SYG SC SCH (08:51)
[2016-04-26] MEDS: NYSTATIN SUSP 5 ML CUP PO SCH ×4 (09:00→20:28)
[2016-04-26] MEDS: SENNA TAB PO SCH ×2 (09:00→20:29)
[2016-04-26] MEDS: AMLODIPINE 10 MG TAB PO SCH (09:00)
[2016-04-26] MEDS: ELVITEGR/COBICIST/EMTRIC/TENOF 1 EACH TABLET PO SCH (10:01)
--- NOTE | 2016-04-26 11:27 | CONS ---
Date/Time of Note Date/Time of Note DATE: 04/26/16 TIME: 11:24 Assessment/Plan Assessment/Plan Chief Complaint/Hosp Course assessment/impression - advanced AIDS (CD<20, viral [id number] copies), non-compliant with medications. Restarted on Stribild and darunavir during this admission - neutropenia s/p BMBx, no e/o infections or malignancy at this time. CMV IHC negative, CMV PCR in serum was <200, cocci and crypto negative, QTB gold negative - h/o fever on admission, low grade temp 100F after BMBx-->at present afebrile - h/o cough on admission, resolved. CXR showed overinflated lungs, CT showed benign appearing sub-centimeter nodule seen at the bilateral lung bases - h/o E. coli in urine, likely colonization. completed treatment for this - LUE weakness and pain due to tear of rotator cuff muscles and bicep tendon anchor - L cervical and supraclavicular lymphadenopathy probably due to HIV infection - h/o thrush - hyperpigmented lesions on b/l LE x several months according to Pt recommendations - monitor CBC and CMP closely - pending results: AFB blood culture, HIV genotype - I recommended referral to a solar panel installer for skin Bx - continue Stribild (tenofovir/emtricitabine/elvitaegravir/cobicistat) and darunavir 800mg (darunavir dosed at 800mg to simulate Prezcobix [darunavir 800mg /cobicistat 150mg), prophylaxis (atovaquone and azithromycin). I stressed that Pt must be compliant with his ARVs to reconstitute his immune function. Sharon CD4 count and viral load around 05/07/2016 as outpatient - continue levofloxacin 500mg PO daily until his neutropenia resolves - I recommend referral to a solar panel installer for Bx of his hyperpigmented lesions on b/l UE - I instructed Pt to follow up with Dr. Zuly Pradhan for neutropenia, HIV care and referral to a solar panel installer and numerical analysis group manager management d/w Pt Problems: Consultation Date/Type/Reason Admit Date/Time Apr 16, 2016 at 23:36 Initial Consult Date 04/18/16 Type of Consultation: Infectious Disease Referring Provider: NAKIA LUNA MD 24 HR Interval Summary Constitutional: no complaints Detailed Summary Eyes: no complaints ENT: no complaints Respiratory: no complaints Cardiovascular: no complaints Gastrointestinal: no complaints, No diarrhea Genitourinary: no complaints Musculoskeletal: bone/joint pain, restricted range of motion Skin: other (darkness of b/l UE and upper chest (chronic per Pt), hypoer- pigmented lesions on b/l LE (x6 months per Pt)) Lymphatic: no complaints Exam/Review of Systems Vital Signs Vitals Vital Signs Date Time Temp Pulse Resp B/P Pulse Ox O2 Delivery O2 Flow Rate FiO2 04/26/16 07:34 97.5 72 20 98/70 98 04/22/16 19:49 Room Air Intake and Output 04/25/16 04/25/16 04/26/16 15:00 23:00 07:00 Intake Total 1040 ml 600 ml Output Total 250 ml Balance 790 ml 600 ml Exam Constitutional: alert, oriented, well developed Psych: nl mood/affect, no complaints Head: atraumatic, normocephalic Eyes: nl conjunctiva, nl lids ENMT: nl external ears & nose, nl nasal mucosa & septum Neck: supple Musculoskeletal: muscle weakness, range of motion Extremities: No edema Neurological: PEPPER PICKER II-XII intact, focal weakness, nl mental status, nl speech Skin: rash or lesions (hyperpigmented lesions on b/l LE) Results Result Diagram: 04/26/1615 04/26/16 0515 Results 24 hrs Laboratory Tests Test 04/26/16 05:15 Anion Gap 12 Basophils # 0.0 Basophils % 1.2 Blood Urea Nitrogen 18 Calcium Level 9.2 Carbon Dioxide Level 25 Chloride Level 106 Creatinine 0.69 Eosinophils # 0.3 Eosinophils % 18.8 H Glucose Level 89 Hematocrit 38.6 L Hemoglobin 13.4 L Lymphocytes # 0.9 Lymphocytes % 52.4 H Mean Corpuscular Hemoglobin 29.6 Mean Corpuscular Hemoglobin Concent 34.7 Mean Corpuscular Volume 85.4 Mean Platelet Volume 9.1 Monocytes # 0.3 Monocytes % 17.1 H Neutrophils # 0.2 L Neutrophils % 10.5 L Nucleated Red Blood Cells # 0.0 Nucleated Red Blood Cells % 0.0 Platelet Count 238 Potassium Level 4.2 Red Blood Count 4.52 L Red Cell Distribution Width 14.0 Sodium Level 139 White Blood Count 1.7 L Medications Medications Current Medications Acetaminophen (Tylenol Tab) 650 mg Q4H PRN PO PAIN AND OR ELEVATED TEMP Last administered on 04/19/16 19:05; Admin Dose 650 MG; Start 04/17/16 at 01:00 Enoxaparin Sodium (Lovenox) 40 mg DAILY SC Last administered on 04/26/16 08:51 ; Admin Dose 40 MG; Start 04/17/16 at 09:00 Acetaminophen/ Hydrocodone Bitart ([place] (5/325)) 1 tab Q4H PRN PO PAIN Last administered on 04/23/16 14:38; Admin Dose 1 TAB; Start 04/17/16 at 01:00 Morphine Sulfate (morphine) 2 mg Q4H PRN IV SEVERE PAIN Last administered on 22:04; Admin Dose 2 MG; Start 04/17/16 at 01:00 Zolpidem Tartrate (Ambien) 5 mg HS PRN PO INSOMNIA Last administered on 01:26; Admin Dose 5 MG; Start 04/17/16 at 01:00 Eye Lubricant (Artificial Tears Oph) 2 drop Q6H PRN BOTH EYES DRY EYES Last administered on 04/25/16 10:18; Admin Dose 2 DROP; Start 04/17/16 at 19:00 Azithromycin (Zithromax) 1,200 mg Q7D PO Last administered on 04/25/16 13:25; Admin Dose 1,200 MG; Start 04/18/16 at 12:30 Diphenhydramine HCl (Benadryl) 25 mg Q6H PRN IV ITCHING Last administered on 22:04; Admin Dose 25 MG; Start 04/19/16 at 21:00 Senna (Senokot) 2 tab BID PO Last administered on 04/24/16 08:39; Admin Dose 2 TAB; Start 04/19/16 at 21:00 Nystatin (Nystatin Susp) 5 ml QID PO Last administered on 04/24/16 20:15; Admin Dose 5 ML; Start 04/19/16 at 21:00 Atovaquone (Mepron) 1,500 mg DAILY PO Last administered on 04/26/16 08:46; Admin Dose 1,500 MG; Start 04/21/16 at 09:00 Amlodipine Besylate (Norvasc) 10 mg DAILY PO Last administered on 04/25/16 10: 08; Admin Dose 10 MG; Start 04/22/16 at 21:30 Clonidine (Catapres) 0.1 mg Q6H PRN PO SBP >160; Start 04/22/16 at 21:30 Levofloxacin (Levaquin) 500 mg DAILY@06 PO Last administered on 04/26/16 06:14 ; Admin Dose 500 MG; Start 04/25/16 at 06:00 JACK LAIRD M.D. Apr 26, 2016 11:27
--- NOTE | 2016-04-26 12:52 | PN ---
Date/Time of Note Date/Time of Note DATE: 04/26/16 TIME: 12:51 Assessment/Plan VTE Prophylaxis VTE Prophylaxis Intervention: SCD's Lines/Catheters IV Catheter Type (from [facility]): Saline Lock Urinary Cath still in place: No Assessment/Plan Chief Complaint/Hosp Course Assessment and plan - AIDS, patient is not compliant with medication. Dr. Lady reese is following in infection disease consultation. Patient restarted on antiretroviral therapy. - Neutropenia and fever on admission. Continue antibiotics per ID. - Dysphagia with oral candidiasis, on fluconazole. - GNR UTI versus colonization - Anemia [address] Carias is following in hematology oncology consultation. Status post bone marrow biopsy, negative for hematologic malignancy. -Chest pain on admission. Troponins negative 3. Dr. Silver is following in cardiology consultation. - LUE and L hand pain due to tear of rotator cuff muscles and bicep tendon anchor, Dr Vance, ortho consult is appreciated. Further recommendations based on clinical course. Plan of care discussed with Dr. Walden. Problems: Subjective 24 Hr Interval Summary Free Text/Dictation Low BP, will hold Norvasc, monitor BP for next 24 hr. Exam/Review of Systems Vital Signs Vitals Vital Signs Date Time Temp Pulse Resp B/P Pulse Ox O2 Delivery O2 Flow Rate FiO2 04/26/16 07:34 97.5 72 20 98/70 98 04/22/16 19:49 Room Air Intake and Output 04/25/16 04/25/16 04/26/16 15:00 23:00 07:00 Intake Total 1040 ml 600 ml Output Total 250 ml Balance 790 ml 600 ml Exam Constitutional: alert, oriented Psych: no complaints Head: atraumatic, normocephalic Eyes: nl conjunctiva ENMT: nl external ears & nose Neck: non-tender, supple Respiratory: clear to auscultation Cardiovascular: nl pulses, regular rate and rhythm Gastrointestinal: non-tender, soft Musculoskeletal: nl extremities to inspection Extremities: normal pulses Neurological: ENTRY LEVEL PARALEGAL II-XII intact Results Result Diagram: 04/26/16 0515 04/26/16 0515 Results 24 hrs Laboratory Tests Test 04/26/16 05:15 Anion Gap 12 Basophils # 0.0 Basophils % 1.2 Blood Urea Nitrogen 18 Calcium Level 9.2 Carbon Dioxide Level 25 Chloride Level 106 Creatinine 0.69 Eosinophils # 0.3 Eosinophils % 18.8 H Glucose Level 89 Hematocrit 38.6 L Hemoglobin 13.4 L Lymphocytes # 0.9 Lymphocytes % 52.4 H Mean Corpuscular Hemoglobin 29.6 Mean Corpuscular Hemoglobin Concent 34.7 Mean Corpuscular Volume 85.4 Mean Platelet Volume 9.1 Monocytes # 0.3 Monocytes % 17.1 H Neutrophils # 0.2 L Neutrophils % 10.5 L Nucleated Red Blood Cells # 0.0 Nucleated Red Blood Cells % 0.0 Platelet Count 238 Potassium Level 4.2 Red Blood Count 4.52 L Red Cell Distribution Width 14.0 Sodium Level 139 White Blood Count 1.7 L Medications Medications Current Medications Acetaminophen (Tylenol Tab) 650 mg Q4H PRN PO PAIN AND OR ELEVATED TEMP Last administered on 04/19/16 19:05; Admin Dose 650 MG; Start 04/17/16 at 01:00 Enoxaparin Sodium (Lovenox) 40 mg DAILY SC Last administered on 04/26/16 08:51 ; Admin Dose 40 MG; Start 04/17/16 at 09:00 Acetaminophen/ Hydrocodone Bitart ([place] (5/325)) 1 tab Q4H PRN PO PAIN Last administered on 04/23/16 14:38; Admin Dose 1 TAB; Start 04/17/16 at 01:00 Morphine Sulfate (morphine) 2 mg Q4H PRN IV SEVERE PAIN Last administered on 22:04; Admin Dose 2 MG; Start 04/17/16 at 01:00 Zolpidem Tartrate (Ambien) 5 mg HS PRN PO INSOMNIA Last administered on 01:26; Admin Dose 5 MG; Start 04/17/16 at 01:00 Eye Lubricant (Artificial Tears Oph) 2 drop Q6H PRN BOTH EYES DRY EYES Last administered on 04/25/16 10:18; Admin Dose 2 DROP; Start 04/17/16 at 19:00 Azithromycin (Zithromax) 1,200 mg Q7D PO Last administered on 04/25/16 13:25; Admin Dose 1,200 MG; Start 04/18/16 at 12:30 Diphenhydramine HCl (Benadryl) 25 mg Q6H PRN IV ITCHING Last administered on 22:04; Admin Dose 25 MG; Start 04/19/16 at 21:00 Senna (Senokot) 2 tab BID PO Last administered on 04/24/16 08:39; Admin Dose 2 TAB; Start 04/19/16 at 21:00 Nystatin (Nystatin Susp) 5 ml QID PO Last administered on 04/24/16 20:15; Admin Dose 5 ML; Start 04/19/16 at 21:00 Atovaquone (Mepron) 1,500 mg DAILY PO Last administered on 04/26/16 08:46; Admin Dose 1,500 MG; Start 04/21/16 at 09:00 Amlodipine Besylate (Norvasc) 10 mg DAILY PO Last administered on 04/25/16 10: 08; Admin Dose 10 MG; Start 04/22/16 at 21:30 Clonidine (Catapres) 0.1 mg Q6H PRN PO SBP >160; Start 04/22/16 at 21:30 Levofloxacin (Levaquin) 500 mg DAILY@06 PO Last administered on 04/26/16 06:14 ; Admin Dose 500 MG; Start 04/25/16 at 06:00 AAKASH MITCHELL Apr 26, 2016 12:52
[2016-04-26 19:44] VITALS: BP 123/75; RESP 20
[2016-04-26] MEDS: morphine 2 MG INJ IV PRN (20:26)
[2016-04-26] MEDS: DIPHENHYDRAMINE 50 MG INJ IV PRN (21:39)
[2016-04-27 05:42] LABS: ADD SCAN DIFF NO
[2016-04-27] MEDS: LEVOFLOXACIN 500 MG TAB PO SCH (05:43)
[2016-04-27 05:51] LABS: ABNORMAL IP MESSAGE 1; BASOPHILS % 1.6 % (0.0-2.0); EOSINOPHILS # 0.4 10^3/ul (0.0-0.5); EOSINOPHILS % 19.9 % (0.0-7.0); HEMATOCRIT 38.9 % (42.0-52.0); HEMOGLOBIN 13.2 g/dl (14.0-18.0); LYMPHOCYTES # 0.9 10^3/ul (0.8-2.9); LYMPHOCYTES % 48.4 % (15.0-51.0); MEAN CORPUSCULAR HEMOGLOBIN 28.9 pg (29.0-33.0); MEAN CORPUSCULAR HGB CONC 33.9 g/dl (32.0-37.0); MEAN CORPUSCULAR VOLUME 85.3 fl (82.0-101.0); MEAN PLATELET VOLUME 9.6 fl (7.4-10.4); MONOCYTE # 0.3 10^3/ul (0.3-0.9); NEUTROPHIL # 0.2 10^3/ul (1.6-7.5); NEUTROPHILS % 12.4 % (39.0-77.0); PLATELET COUNT 236 10^3/UL (140-415); RED BLOOD COUNT 4.56 10^6/ul (4.70-6.10); RED CELL DISTRIBUTION WIDTH 14.1 % (11.5-14.5); WHITE BLOOD COUNT 1.9 10^3/ul (4.8-10.8)
[2016-04-27 06:20] LABS: MONOCYTES % 17.7 % (0.0-11.0)
[2016-04-27 06:22] LABS: POTASSIUM 3.9 mmol/L (3.5-5.1)
[2016-04-27 06:24] LABS: CREATININE 0.71 mg/dl (0.61-1.24)
[2016-04-27 06:25] LABS: CALCIUM 8.5 mg/dl (8.4-10.2)
[2016-04-27 07:48] VITALS: BP 107/77; RESP 20
[2016-04-27] MEDS: ELVITEGR/COBICIST/EMTRIC/TENOF 1 EACH TABLET PO SCH (08:52)
[2016-04-27] MEDS: DARUNAVIR ETHANOLATE 800 MG TABLET PO SCH (08:52)
[2016-04-27] MEDS: NYSTATIN SUSP 5 ML CUP PO SCH ×3 (08:52→17:32)
[2016-04-27] MEDS: SENNA TAB PO SCH (08:52)
[2016-04-27] MEDS: ATOVAQUONE 750 MG/5 ML CUP PO SCH (08:52)
[2016-04-27] MEDS: ENOXAPARIN 40 MG/0.4 ML SYG SC SCH (09:22)
--- NOTE | 2016-04-27 10:08 | CONS ---
Date/Time of Note Date/Time of Note DATE: 04/27/16 TIME: 10:04 Assessment/Plan Assessment/Plan Chief Complaint/Hosp Course assessment/impression - advanced AIDS (CD<20, viral load 166,544 copies in 04/2016), was non-compliant with medications. Restarted on Stribild and darunavir on 04/23/2016 - neutropenia s/p BMBx, no e/o infections or malignancy at this time. CMV IHC negative, CMV PCR in serum was <200, cocci and crypto negative, QTB gold negative - h/o fever on admission, low grade temp 100F after BMBx-->Pt completed empiric broad spectrum antibiotics - h/o cough on admission, resolved. CXR showed overinflated lungs, CT showed benign appearing sub-centimeter nodule seen at the bilateral lung bases - h/o E. coli in urine, likely colonization. completed treatment for this - LUE weakness and pain due to tear of rotator cuff muscles and bicep tendon anchor - L cervical and supraclavicular lymphadenopathy probably due to HIV infection - h/o thrush, resolved - hyperpigmented lesions on b/l LE x several months according to Pt recommendations - monitor CBC and CMP closely - monitor symptoms of immune reconstitution - pending results: AFB blood culture, HIV genotype - continue Stribild (tenofovir/emtricitabine/elvitaegravir/cobicistat) and darunavir 800mg (darunavir dosed at 800mg to simulate Prezcobix [darunavir 800mg /cobicistat 150mg), prophylaxis (atovaquone and azithromycin). I stressed that Pt must be compliant with his ARVs to reconstitute his immune function. Repeat CD4 count and viral load around 05/07/2016 as outpatient - continue levofloxacin 500mg PO daily until his neutropenia resolves - I recommend referral to a web architect for Bx of his hyperpigmented lesions on b/l UE - OK for steroid injection to control pain in L shoulder once his ANC>1,300. At present, Pt's in pain but able to lie on L shoulder down in bed - I instructed Pt to follow up with Dr. Zuly Pradhan for neutropenia, HIV care and referral to a web architect and head filter press tender management d/w Pt Problems: Consultation Date/Type/Reason Admit Date/Time Apr 16, 2016 at 23:36 Initial Consult Date 04/18/16 Type of Consultation: Infectious Disease Referring Provider: NAKIA LUNA MD 24 HR Interval Summary Constitutional: no complaints Detailed Summary Eyes: no complaints ENT: no complaints Respiratory: no complaints Cardiovascular: no complaints Gastrointestinal: no complaints Genitourinary: no complaints Musculoskeletal: bone/joint pain, restricted range of motion Skin: no complaints Neurologic: focal-weakness, No headache Endocrine: no complaints Exam/Review of Systems Vital Signs Vitals Vital Signs Date Time Temp Pulse Resp B/P Pulse Ox O2 Delivery O2 Flow Rate FiO2 04/27/16 07:48 97.8 83 20 107/77 99 Intake and Output 04/26/16 04/26/16 04/27/16 15:00 23:00 07:00 Intake Total 1320 ml 480 ml Output Total 1450 ml 500 ml Balance -130 ml -20 ml Exam Constitutional: alert, oriented, well developed Psych: nl mood/affect, no complaints Head: atraumatic, normocephalic Eyes: nl conjunctiva, nl lids ENMT: nl external ears & nose, nl nasal mucosa & septum Neck: supple Respiratory: clear to auscultation, normal air movement Cardiovascular: nl pulses, regular rate and rhythm Gastrointestinal: non-tender, soft, No distended, No tender Musculoskeletal: nl extremities to inspection, range of motion (LUE abduction limited) Neurological: RETAIL SELLING SPECIALIST II-XII intact, focal weakness (L hand and LUE), nl mental status, nl speech Results Result Diagram: 04/27/16 0505 04/27/16 0505 Results 24 hrs Laboratory Tests Test 04/27/16 05:05 Anion Gap 15 Basophils # 0.0 Basophils % 1.6 Blood Urea Nitrogen 18 Calcium Level 8.5 Carbon Dioxide Level 25 Chloride Level 104 Creatinine 0.71 Eosinophils # 0.4 Eosinophils % 19.9 H Glucose Level 83 Hematocrit 38.9 L Hemoglobin 13.2 L Lymphocytes # 0.9 Lymphocytes % 48.4 Mean Corpuscular Hemoglobin 28.9 L Mean Corpuscular Hemoglobin Concent 33.9 Mean Corpuscular Volume 85.3 Mean Platelet Volume 9.6 Monocytes # 0.3 Monocytes % 17.7 H Neutrophils # 0.2 L Neutrophils % 12.4 L Nucleated Red Blood Cells # 0.0 Nucleated Red Blood Cells % 0.0 Platelet Count 236 Potassium Level 3.9 Red Blood Count 4.56 L Red Cell Distribution Width 14.1 Sodium Level 140 White Blood Count 1.9 L Medications Medications Current Medications Acetaminophen (Tylenol Tab) 650 mg Q4H PRN PO PAIN AND OR ELEVATED TEMP Last administered on 04/19/16 19:05; Admin Dose 650 MG; Start 04/17/16 at 01:00 Enoxaparin Sodium (Lovenox) 40 mg DAILY SC Last administered on 04/27/16 09:22 ; Admin Dose 40 MG; Start 04/17/16 at 09:00 Acetaminophen/ Hydrocodone Bitart ([place] (5/325)) 1 tab Q4H PRN PO PAIN Last administered on 04/23/16 14:38; Admin Dose 1 TAB; Start 04/17/16 at 01:00 Morphine Sulfate (morphine) 2 mg Q4H PRN IV SEVERE PAIN Last administered on 20:26; Admin Dose 2 MG; Start 04/17/16 at 01:00 Zolpidem Tartrate (Ambien) 5 mg HS PRN PO INSOMNIA Last administered on 01:26; Admin Dose 5 MG; Start 04/17/16 at 01:00 Eye Lubricant (Artificial Tears Oph) 2 drop Q6H PRN BOTH EYES DRY EYES Last administered on 04/25/16 10:18; Admin Dose 2 DROP; Start 04/17/16 at 19:00 Azithromycin (Zithromax) 1,200 mg Q7D PO Last administered on 04/25/16 13:25; Admin Dose 1,200 MG; Start 04/18/16 at 12:30 Diphenhydramine HCl (Benadryl) 25 mg Q6H PRN IV ITCHING Last administered on 21:39; Admin Dose 25 MG; Start 04/19/16 at 21:00 Senna (Senokot) 2 tab BID PO Last administered on 04/27/16 08:52; Admin Dose 2 TAB; Start 04/19/16 at 21:00 Nystatin (Nystatin Susp) 5 ml QID PO Last administered on 04/27/16 08:52; Admin Dose 5 ML; Start 04/19/16 at 21:00 Atovaquone (Mepron) 1,500 mg DAILY PO Last administered on 04/27/16 08:52; Admin Dose 1,500 MG; Start 04/21/16 at 09:00 Amlodipine Besylate (Norvasc) 10 mg DAILY PO Last administered on 04/25/16 10: 08; Admin Dose 10 MG; Start 04/22/16 at 21:30; Status Future Hold Clonidine (Catapres) 0.1 mg Q6H PRN PO SBP >160; Start 04/22/16 at 21:30 Levofloxacin (Levaquin) 500 mg DAILY@06 PO Last administered on 04/27/16 05:43 ; Admin Dose 500 MG; Start 04/25/16 at 06:00 JACK LAIRD M.D. Apr 27, 2016 10:08
[2016-04-27] MEDS: morphine 2 MG INJ IV PRN (11:46)
[2016-04-27] MEDS ORDERED: HYDR-3498 PO (18:03)
[2016-04-27] MEDS ORDERED: NYST1000 PO (18:03)
[2016-04-27] MEDS ORDERED: DARU800T PO (18:03)
[2016-04-27] MEDS ORDERED: ELVI1TAB PO (18:03)
[2016-04-27] MEDS ORDERED: LEVO500T10 PO (18:03)
[2016-04-27] MEDS ORDERED: AZIT600T PO (18:03)
[2016-04-27] MEDS ORDERED: ATOV750L PO (18:03)
--- NOTE | 2016-05-01 22:14 | DS ---
DATE OF ADMISSION: 04/16/2016 DATE OF DISCHARGE: 04/27/2016 FINAL DIAGNOSES: 1. Acquired immune deficiency syndrome. 2. Neutropenia and fever on admission. 3. Dysphagia with oral candidiasis, resolved. 4. Gram-negative rods urinary tract infection versus colonization. 5. 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 6. Chest pain on admission. Acute coronary syndrome ruled out. 7. Left upper extremity and left hand pain due to tear of rotator cuff muscle and bicep tendon and core. BRIEF HISTORY: The patient is a 66-year-old gentleman with AIDS. The patient stated that he has HI V for many years; however, he stopped taking his antiretroviral for the last 6 months due to side ef fects. The patient presented to the emergency room with complaints of fever and cough for 1 week. The patient also complains of chest pain which was sharp, nonradiating. The patient was admitted fo r further evaluation and management. HOSPITAL COURSE: The patient was evaluated by Dr. Silver in cardiology consultation. The patient's fe ar is if troponin was found to be negative. The patient's chest pain resolved. The patient was sta rted on aspirin. The patient was also evaluated by Dr. Melara in infectious disease consultation. The patient had crowley cultures. The patient's C difficile full count was less than 20 and viral cee d 166. The patient was restarted on Stribild and darunavir during admission. The patient also had neutropenia and was placed on neutropenic precautions. The patient's QuantiFERON Gold test was found to be negative. Cocci and ____ negative and CMV PCR serum was less than 200. The patient underwent chest x-ray and CT of the chest that showed benign appearing subcentimeter nodules seen at the bila teral lung bases. The patient also noted to have Escherichia coli urinary tract infection and a com pleted treatment for this. The patient was also evaluated by Dr. Kenny in gastroenterology consulta tion, difficulty swallowing. The patient was started on antifungal for possible esophageal candidia sis. The patient was also complaining of left shoulder and left hand pain. The patient underwent a n MRI of the left shoulder with notion of tear of the rotator cuff muscle and biceps tendon. The pat ient was evaluated by Dr. Vance in ortho consultation with recommendation of post-steroid injections; however steroid injection and is not recommended at this time due to very total neutrophil counts an d leukopenia. The patient is instructed to follow up with Dr. Vance when the patient's absolute neutr ophil count will be above 1300. Patient's condition gradually improved. The patient did not have an y fever, denied any chest pain, denied any shortness of breath and patient completed the treatment a nd was discharged home. CONDITION ON DISCHARGE: Hemodynamically stable. ACTIVITY: As patient tolerates. DISCHARGE DIET: To Regular diet. DISCHARGE MEDICATIONS: The patient is given prescription for Mepron, darunavir, ____ and [place] p.r.n. for pain, Levaquin a nd nystatin. The patient is to continue on Zithromax and vitamin B12. DISCHARGE INSTRUCTIONS: The patient is instructed to follow up with his primary care physician, Dr. Syd Pradhan for neutropenia and HIV care. Interdisciplinary plan of care was established for this patient. Plan of care was discussed with Dr. Luna. Dictated By: AAKASH MITCHELL WORKFORCE MANAGEMENT COORDINATOR for NAKIA LUNA MD SR/NTS Conf#: [id number] DID#: [id number]
== END 2016-04-27 18:55 | disposition home or self-care (01) | DRG 975 ==
LOC: E/R 19:15 → MS2 23:36
PROVIDERS: ADMIT Internal Medicine; ATTEND Internal Medicine
PROC: 07DR3ZX Extraction of Iliac Bone Marrow, Percutaneous Approach, Diagnostic (ICD-10-PCS; principal; 2016-04-19)
DX: B20 Human immunodeficiency virus [HIV] disease (principal); B37.81 Candidal esophagitis; N39.0 Urinary tract infection, site not specified; B37.0 Candidal stomatitis; D70.9 Neutropenia, unspecified; R55 Syncope and collapse; J45.909 Unspecified asthma, uncomplicated; F32.9 Major depressive disorder, single episode, unspecified; R13.10 Dysphagia, unspecified; R05 Cough; R59.1 Generalized enlarged lymph nodes; L29.9 Pruritus, unspecified; D63.8 Anemia in other chronic diseases classified elsewhere; B96.20 Unspecified Escherichia coli [E. coli] as the cause of diseases classified elsewhere; M75.42 Impingement syndrome of left shoulder; M75.102 Unspecified rotator cuff tear or rupture of left shoulder, not specified as traumatic; R07.9 Chest pain, unspecified; Z79.82 Long term (current) use of aspirin; Z91.14 Patient's other noncompliance with medication regimen; Z87.891 Personal history of nicotine dependence; Z90.49 Acquired absence of other specified parts of digestive tract
CPT/HCPCS: 36415; 71020; 71260; 72142; 72147; 73200; 73218; 73221; 77012; 80048; 80053; 81003; 83605; 83615; 84484; 85025; 85610; 85730; 86360; 86480; 86635; 86641; 86701; 86703; 87040; 87045; 87070; 87075; 87086; 87102; 87116; 87400; 87502; 87536; 88300; 88305; 88312; 88313; 88341; 88342; 93005; 93306; 93922; 96365; 96366; 96368; 96375; J0692; J1200; J1450; J1650; J1720; J1956; J2185; J2250; J2270; J2543; J3010; J3370; J7030; J7040; Q9967

== ENCOUNTER 2016-05-02 21:34 | Emergency (ER) | payer MEDICARE, OTHER ==
[~2016-05-02 21:34] MED LIST changes: +ATOV750L PO; +HYDR-3498 PO; +LEVO500T10 PO; +LORA10TA3 PO; +NYST1000 PO
== END 2016-05-02 22:03 | disposition left against medical advice (07) ==
LOC: E/R 21:34
DX: Z53.21 Procedure and treatment not carried out due to patient leaving prior to being seen by health care provider (principal)

== ENCOUNTER 2016-05-03 11:52 | Inpatient (IN) | payer MEDICARE, OTHER ==
[~2016-05-03] VITALS: Ht 172.7 cm; Wt 86.7 kg
[~2016-05-03 11:52] MED LIST changes: -ALBU18HF IH; -BACTDS PO; -ESCI10TA PO; -FAMO-18 PO; -LORA-186 PO; -LORA10TA3 PO; -MULT-552 PO; -TAMS-14 PO; -[UNRECOGNIZED DRUG - CODE] PO
[2016-05-03] MEDS ORDERED: ACETAMINOPHEN 325 MG TAB PO STA (13:37)
[2016-05-03] MEDS ORDERED: SOD CHLORIDE 0.9% 1,000 ML IV ONE (14:00)
--- NOTE | 2016-05-03 14:23 | RADRPT ---
PROCEDURE: XR Chest. CLINICAL INDICATION: Sepsis. TECHNIQUE: Single frontal view of the chest was obtained COMPARISON: Chest x-ray 04/16/2016 09:02 p.m. FINDINGS: The soft tissues are normal. There are degenerative osteophytes in the thoracic spine. The the hea rt is enlarged. The cardiomediastinal silhouette, pulmonary vasculature and hilar structures are no rmal. Left-sided aorta is ectatic. The lungs are clear. The costophrenic angles are normal. IMPRESSION: 1. Mild cardiomegaly. 2. No evidence of active cardiopulmonary disease. stable chest compared to 04/16/2016. 3. Small pulmonary nodules described on the CT report dated 04/18/2016 are not visualized on the cu rrent chest x-ray which is less sensitive in the detection of small pulmonary nodules. RPTAT:AAJJ Physician Jeff Date Time Electronically viewed and signed by Dru Penn Physician on 05/03/2016 14:23 DAIANA/
[2016-05-03 14:46] LABS: ADD SCAN DIFF NO
[2016-05-03 14:50] LABS: ABNORMAL IP MESSAGE 1; HEMATOCRIT 36.4 % (42.0-52.0); HEMOGLOBIN 12.8 g/dl (14.0-18.0); MEAN CORPUSCULAR HEMOGLOBIN 29.6 pg (29.0-33.0); MEAN CORPUSCULAR HGB CONC 35.2 g/dl (32.0-37.0); MEAN CORPUSCULAR VOLUME 84.1 fl (82.0-101.0); MEAN PLATELET VOLUME 9.5 fl (7.4-10.4); PLATELET COUNT 243 10^3/UL (140-415); RED BLOOD COUNT 4.33 10^6/ul (4.70-6.10); RED CELL DISTRIBUTION WIDTH 13.7 % (11.5-14.5); WHITE BLOOD COUNT 2.8 10^3/ul (4.8-10.8)
[2016-05-03 15:06] LABS: ALBUMIN 3.6 g/dl (3.3-4.9)
[2016-05-03 15:07] LABS: POTASSIUM 3.9 mmol/L (3.5-5.1)
[2016-05-03 15:09] LABS: ALBUMIN/GLOBULIN RATIO 1.09; BILIRUBIN,INDIRECT 0.4 mg/dl (0-1.1); BILIRUBIN,TOTAL 0.4 mg/dl (0.2-1.3); CREATININE 1.06 mg/dl (0.61-1.24); TOTAL PROTEIN 6.9 g/dl (6.1-8.1)
[2016-05-03 15:10] LABS: CALCIUM 8.8 mg/dl (8.4-10.2)
[2016-05-03 15:53] LABS: EOSINOPHILS # 0.5 10^3/ul (0.0-0.5); LYMPHOCYTES # 0.4 10^3/ul (0.8-2.9); MONOCYTE # 0.3 10^3/ul (0.3-0.9); NEUTROPHIL # 1.5 10^3/ul (1.6-7.5)
[2016-05-03 15:54] LABS: PLATELET ESTIMATE PLT APPEAR ADEQUATE
[2016-05-03 16:28] LABS: ADD UMIC YES; URINE BILIRUBIN (Dip) NEGATIVE (NEGATIVE); URINE BLOOD (Dip) TRACE (NEGATIVE); URINE COLOR YELLOW (YELLOW); URINE GLUCOSE (Dip) NEGATIVE (NEGATIVE); URINE KETONES (Dip) TRACE (NEGATIVE); URINE LEUKOCYTE ESTERASE (Dip) NEGATIVE (NEGATIVE); URINE NITRITE (Dip) NEGATIVE (NEGATIVE); URINE UROBILINOGEN (Dip) 0.2 E.U./dL (0.1-1.0)
[2016-05-03 16:54] LABS: MUCUS,URINE FEW
[2016-05-03 16:55] LABS: BACTERIA,URINE RARE; URINE TOTAL PROTEIN (Dip) NEGATIVE (NEGATIVE)
[2016-05-03] MEDS ORDERED: SODIUM CHLORIDE 0.9% 1L BAG IV* STA (17:32)
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
[2016-05-03] MEDS ORDERED: SOD CHLORIDE 0.9% 1,000 ML IV SCH (19:49)
[2016-05-03] MEDS ORDERED: ONDANSETRON 4 MG INJ IV PRN (20:00)
[2016-05-03] MEDS ORDERED: ACETAMINOPHEN 325 MG TAB PO PRN (20:00)
[2016-05-03 21:11] VITALS: TEMP 101.3
[2016-05-03 21:44] VITALS: BP 122/79; RESP 19
[2016-05-03 22:21] VITALS: BP 122/79; PULSE 88; RESP 18
[2016-05-03 22:22] VITALS: Ht 172.7 cm; Wt 86.7 kg
[2016-05-03] MEDS ORDERED: VANCOMYCIN 1 GM in SOD CHLORIDE 0.9% 250 ML IVPB ONE (23:30)
[2016-05-03] MEDS ORDERED: VANCOMYCIN IV PER PHARMACY XX SCH (23:30)
[2016-05-04] VITALS (9 sets, daily range): BP systolic 74–126; BP diastolic 51–70; PULSE 95–123; RESP 17–22
[2016-05-04] MEDS: DIPHENHYDRAMINE 50 MG INJ IV PRN ×2 (00:08→06:04)
[2016-05-04] MEDS: ACETAMINOPHEN 325 MG TAB PO PRN ×4 (00:23→13:22)
[2016-05-04] MEDS ORDERED: VANCOMYCIN 1.25 GM in SOD CHLORIDE 0.9% 250 ML IVPB ONE (01:00)
[2016-05-04] MEDS: morphine 2 MG INJ IV PRN (03:05)
[2016-05-04 05:51] LABS: ADD SCAN DIFF NO
[2016-05-04 05:53] LABS: ABNORMAL IP MESSAGE 1; HEMATOCRIT 34.2 % (42.0-52.0); HEMOGLOBIN 11.9 g/dl (14.0-18.0); MEAN CORPUSCULAR HEMOGLOBIN 29.6 pg (29.0-33.0); MEAN CORPUSCULAR HGB CONC 34.8 g/dl (32.0-37.0); MEAN CORPUSCULAR VOLUME 85.1 fl (82.0-101.0); MEAN PLATELET VOLUME 9.6 fl (7.4-10.4); PLATELET COUNT 219 10^3/UL (140-415); RED BLOOD COUNT 4.02 10^6/ul (4.70-6.10); RED CELL DISTRIBUTION WIDTH 13.9 % (11.5-14.5); WHITE BLOOD COUNT 1.4 10^3/ul (4.8-10.8)
[2016-05-04 06:18] LABS: BILIRUBIN,INDIRECT 0.2 mg/dl (0-1.1); BILIRUBIN,TOTAL 0.2 mg/dl (0.2-1.3); CREATININE 0.91 mg/dl (0.61-1.24)
[2016-05-04 06:19] LABS: CALCIUM 8.4 mg/dl (8.4-10.2)
[2016-05-04] MEDS: CEFEPIME 1GM/50 ML (PMX) 50 ML IVPB SCH ×2 (08:13→21:05)
[2016-05-04] MEDS: ELVITEGR/COBICIST/EMTRIC/TENOF 1 EACH TABLET PO SCH (08:15)
[2016-05-04] MEDS: MULTIVITAMINS THERAPEUTIC TAB PO SCH (08:16)
[2016-05-04] MEDS: TRIMETHOPRIM/SULFAMETHOX (DS) TAB PO SCH (08:16)
[2016-05-04] MEDS: AZITHROMYCIN 600 MG TAB PO SCH (08:16)
[2016-05-04] MEDS: DARUNAVIR ETHANOLATE 800 MG TABLET PO SCH (08:16)
[2016-05-04] MEDS: ATOVAQUONE 750 MG/5 ML CUP PO SCH (08:17)
[2016-05-04] MEDS: NYSTATIN SUSP 5 ML CUP PO SCH ×4 (08:17→21:05)
[2016-05-04] MEDS: ENOXAPARIN 40 MG/0.4 ML SYG SC SCH (08:22)
[2016-05-04] MEDS ORDERED: CYANOCOBALAMIN 1000 MCG INJ IM SCH ×2 (09:00)
[2016-05-04 09:45] LABS: EOSINOPHILS # 0.3 10^3/ul (0.0-0.5); LYMPHOCYTES # 0.3 10^3/ul (0.8-2.9); NEUTROPHIL # 0.8 10^3/ul (1.6-7.5)
[2016-05-04] MEDS: IBUPROFEN 400 MG TAB PO PRN (12:07)
[2016-05-04] MEDS ORDERED: VANCOMYCIN 1 GM in NS 250 ML IVPB SCH (13:00)
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
[2016-05-04] MEDS: FAMOTIDINE 20 MG TAB PO SCH (13:22)
[2016-05-04] MEDS: VANCOMYCIN 1.25 GM in SOD CHLORIDE 0.9% 250 ML IVPB SCH (13:24)
[2016-05-04] MEDS ORDERED: SOD CHLORIDE 0.9% 500 ML IV ONE ×2 (14:00→16:30)
[2016-05-04] MEDS ORDERED: AZITHROMYCIN 600 MG TAB PO SCH (16:30)
[2016-05-04] MEDS ORDERED: SOD CHLORIDE 0.9% 250 ML IV ONE (16:30)
[2016-05-04] MEDS ORDERED: HYDROCODONE/APAP (5/325) TAB PO PRN (16:30)
[2016-05-04] MEDS: DEXTROSE 5%-0.45% NACL 1,000 ML IV SCH (16:56)
[2016-05-04] MEDS ORDERED: NYSTATIN SUSP 100000 UNITS/ML 60 ML BTL PO SCH (17:00)
[2016-05-04] MEDS: LEVOFLOXACIN 500 MG TAB PO SCH (17:02)
[2016-05-04] MEDS ORDERED: NORepinephrine 8MG/250 ML (PMX 250 ML IV SCH (18:30)
[2016-05-05] VITALS (16 sets, daily range): BP systolic 88–104; BP diastolic 51–68; PULSE 86–112; RESP 15–20
[2016-05-05] MEDS: VANCOMYCIN 1.25 GM in SOD CHLORIDE 0.9% 250 ML IVPB SCH ×2 (01:00→05:33)
[2016-05-05] MEDS: DEXTROSE 5%-0.45% NACL 1,000 ML IV SCH ×2 (02:30→12:16)
[2016-05-05] MEDS: LEVOFLOXACIN 500 MG TAB PO SCH (05:34)
[2016-05-05 06:38] LABS: ADD SCAN DIFF NO
[2016-05-05 06:45] LABS: ABNORMAL IP MESSAGE 1; HEMATOCRIT 29.8 % (42.0-52.0); HEMOGLOBIN 10.3 g/dl (14.0-18.0); MEAN CORPUSCULAR HEMOGLOBIN 29.3 pg (29.0-33.0); MEAN CORPUSCULAR HGB CONC 34.6 g/dl (32.0-37.0); MEAN CORPUSCULAR VOLUME 84.7 fl (82.0-101.0); MEAN PLATELET VOLUME 9.7 fl (7.4-10.4); PLATELET COUNT 162 10^3/UL (140-415); RED BLOOD COUNT 3.52 10^6/ul (4.70-6.10); RED CELL DISTRIBUTION WIDTH 14.3 % (11.5-14.5); WHITE BLOOD COUNT 2.7 10^3/ul (4.8-10.8)
[2016-05-05 07:10] LABS: POTASSIUM 3.5 mmol/L (3.5-5.1)
[2016-05-05 07:13] LABS: CREATININE 1.51 mg/dl (0.61-1.24)
[2016-05-05 07:14] LABS: CALCIUM 7.4 mg/dl (8.4-10.2)
[2016-05-05] MEDS ORDERED: DARUNAVIR ETHANOLATE 800 MG TABLET PO SCH (07:55)
[2016-05-05] MEDS: ATOVAQUONE 750 MG/5 ML CUP PO SCH (08:36)
[2016-05-05] MEDS: TRIMETHOPRIM/SULFAMETHOX (DS) TAB PO SCH (08:36)
[2016-05-05] MEDS: NYSTATIN SUSP 5 ML CUP PO SCH ×4 (08:36→20:28)
[2016-05-05] MEDS: MULTIVITAMINS THERAPEUTIC TAB PO SCH (08:36)
[2016-05-05] MEDS: DARUNAVIR ETHANOLATE 800 MG TABLET PO SCH (08:36)
[2016-05-05] MEDS: FAMOTIDINE 20 MG TAB PO SCH (08:36)
[2016-05-05] MEDS: CEFEPIME 1GM/50 ML (PMX) 50 ML IVPB SCH (08:36)
[2016-05-05] MEDS ORDERED: ATOVAQUONE 750 MG/5 ML CUP PO SCH (09:00)
[2016-05-05] MEDS: ELVITEGR/COBICIST/EMTRIC/TENOF 1 EACH TABLET PO SCH (09:43)
[2016-05-05] MEDS: ENOXAPARIN 40 MG/0.4 ML SYG SC SCH (09:47)
[2016-05-05] MEDS: DIPHENHYDRAMINE 50 MG INJ IV PRN ×2 (10:02→20:29)
[2016-05-05] MEDS: morphine 2 MG INJ IV PRN ×2 (10:02→20:28)
[2016-05-05 10:07] LABS: EOSINOPHILS # 0.5 10^3/ul (0.0-0.5); LYMPHOCYTES # 0.2 10^3/ul (0.8-2.9); MONOCYTE # 0.1 10^3/ul (0.3-0.9); NEUTROPHIL # 1.5 10^3/ul (1.6-7.5)
[2016-05-05] MEDS ORDERED: HYDROCORTISONE 1% 28 GM CR TOP PRN (12:00)
--- NOTE | 2016-05-05 12:16 | PN ---
Date/Time of Note Date/Time of Note DATE: 05/05/16 TIME: 12:14 Assessment/Plan VTE Prophylaxis VTE Prophylaxis Intervention: other Lines/Catheters IV [facility] Type (from [facility] Peripheral IV Urinary Cath still in place: No Assessment/Plan Assessment/Plan 1. Neutropenic fever. - per Dr. Narayanan in infectious disease consultation. - on neutropenic precautions. Continue broad spectrum antibiotics. Follow up on urine and blood cultures. 2. AIDS. We will continue the patient on Stribild, darunavir and Mepron. Continue azithromycin. 3. Medical compliance. We will continue antipyretics and pain medication, Zofran p.r.n. for nausea. 4. Sequential compression devices for deep venous thrombosis prophylaxis and Pepcid for peptic ulcer disease prophylaxis. 5. Hypotension - sp ns 250 CC X 1 Further recommendations based on clinical course. Plan of care discussed with Dr. Walden. Subjective 24 Hr Interval Summary Constitutional: no complaints Eyes: no complaints Cardiovascular: no complaints Gastrointestinal: no complaints Genitourinary: no complaints Skin: pruritis Neurologic: no complaints Endocrine: no complaints Lymphatic: no complaints Psychological: no complaints Exam/Review of Systems Vital Signs Vitals Vital Signs Date Time Temp Pulse Resp B/P Pulse Ox O2 Delivery O2 Flow Rate FiO2 05/05/16 11:57 98.2 87 19 88/51 100 05/05/16 08:45 Nasal Cannula 2.0 05/05/16 04:24 28 Intake and Output 05/04/16 05/04/16 05/05/16 15:00 23:00 07:00 Intake Total 1480 ml Output Total 200 ml Balance 1280 ml Exam Constitutional: alert, oriented, well developed Psych: nl mood/affect Head: atraumatic Eyes: EOMI ENMT: nl external ears & nose Neck: non-tender Respiratory: clear to auscultation Cardiovascular: nl pulses Gastrointestinal: non-tender, soft Musculoskeletal: nl extremities to inspection Extremities: normal pulses Neurological: nl mental status, nl speech Skin: rash or lesions Results Result Diagram: 05/05/16 0545 05/05/16 0545 Results 24 hrs Laboratory Tests Test 05/05/16 05:45 Anion Gap 15 Band Neutrophils % 18.0 H Blood Urea Nitrogen 26 #H Calcium Level 7.4 L Carbon Dioxide Level 19 L Chloride Level 102 Creatinine 1.51 H Eosinophils # 0.5 Eosinophils % 18.0 H Glucose Level 91 Hematocrit 29.8 L Hemoglobin 10.3 L Lymphocytes # 0.2 L Lymphocytes % 6.0 L Mean Corpuscular Hemoglobin 29.3 Mean Corpuscular Hemoglobin Concent 34.6 Mean Corpuscular Volume 84.7 Mean Platelet Volume 9.7 Monocytes # 0.1 L Monocytes % 4.0 Neutrophils # 1.5 L Neutrophils % 54.0 Platelet Count 162 # Potassium Level 3.5 Red Blood Count 3.52 L Red Cell Distribution Width 14.3 Sodium Level 132 L White Blood Count 2.7 #L Medications Medications Current Medications Diphenhydramine HCl (Benadryl) 25 mg Q6H PRN IV ITCHING Last administered on 10:02; Start 05/03/16 at 23:30 Morphine Sulfate (morphine) 2 mg Q4H PRN IV PAIN Last administered on 10:02; Start 05/03/16 at 23:30 Enoxaparin Sodium 40 mg 40 mg DAILY SC Last administered on 05/05/16 09:47; Start 05/04/16 at 09:00 Cefepime HCl (Maxipime 1gm/50 ml (Pmx)) 50 ml @ 100 mls/hr Q12 IVPB Last administered on 05/05/16 08:36; Start 05/04/16 at 09:00 Acetaminophen (Tylenol Tab) 650 mg Q4H PRN PO PAIN AND OR ELEVATED TEMP Last administered on 05/04/16 13:22; Start 05/03/16 at 23:30 Darunavir (Prezista) 800 mg DAILY PO Last administered on 05/05/16 08:36; Start 05/04/16 at 09:00 Acetaminophen/ Hydrocodone Bitart ([place] (5/325)) 1 tab Q4H PRN PO PAIN; Start 05/03/16 at 23:30 Multivitamins Therapeutic (Theragran) 1 tab DAILY PO Last administered on 08:36; Start 05/04/16 at 09:00 Nystatin (Nystatin Susp) 5 ml QID PO Last administered on 05/05/16 08:36; Start 05/04/16 at 09:00 Atovaquone (Mepron) 1,500 mg DAILY PO Last administered on 05/05/16 08:36; Start 05/04/16 at 09:00 Azithromycin (Zithromax) 1,200 mg We@09 PO Last administered on 05/04/16 08:16 ; Start 05/04/16 at 09:00 Trimethoprim/ Sulfamethoxazole (Bactrim (Ds)) 1 tab DAILY PO Last administered on 05/05/16 08:36; Start 05/04/16 at 09:00 Elvitegravir/ Cobicis/Emtricit/ Tenof (Stribild Tablet) 1 each DAILY PO Last administered on 05/05/16 09:43; Start 05/04/16 at 09:00 Ibuprofen (Motrin) 400 mg Q6H PRN PO PAIN OR TEMP ABOVE 38C Last administered on 05/04/16 12:07; Start 05/04/16 at 11:30 Famotidine 20 mg 20 mg DAILY PO Last administered on 05/05/16 08:36; Start at 12:30 Dextrose/Sodium Chloride (D5-1/2ns) 1,000 ml @ 100 mls/hr Q10H IV Last administered on 05/04/16 16:56; Start 05/04/16 at 16:30 Cyanocobalamin (Vitamin B12 Inj) 1,000 mcg Q28D IM Last administered on 09:45; Start 05/04/16 at 09:00 Levofloxacin 500 mg 500 mg DAILY@06 PO Last administered on 05/05/16 05:34; Start 05/04/16 at 17:00 Norepinephrine 250 ml @ 1.875 mls/ hr TITRATE IV ; Start 05/04/16 at 18:30; Status Future Hold Vancomycin HCl/ Sodium Chloride (Vancocin/NS) 250 ml @ 83.333 mls/ hr Q24H IVPB ; Start 05/06/16 at 06:00 Hydrocortisone (Hydrocortisone 1% Cr) 1 applic ONCE PRN TOP ITCHING; Start at 12:00; Stop 05/08/16 at 11:59 MAXIME MCKEON May 05, 2016 12:15
[2016-05-05] MEDS ORDERED: SOD CHLORIDE 0.9% 250 ML IV ONE (12:30)
[2016-05-05] MEDS: NS + KCL 20 MEQ 1,000 ML IV SCH (13:08)
--- NOTE | 2016-05-05 13:23 | QN ---
Documentation Comment ID consult requested for neutropenic fever in a pt with AIDS; Dr. Narayanan to see pt soon. Thank you for the consult. AVERY SHAHID NP May 05, 2016 13:22
--- NOTE | 2016-05-05 14:51 | CONS ---
Date/Time of Note Date/Time of Note DATE: 05/05/16 TIME: 14:50 Assessment/Plan Assessment/Plan Chief Complaint/Hosp Course emr reviewed. d/w rest of team. full note to follow shortly. Problems: Consultation Date/Type/Reason Admit Date/Time May 03, 2016 at 19:51 Initial Consult Date Exam/Review of Systems Vital Signs Vitals Vital Signs Date Time Temp Pulse Resp B/P Pulse Ox O2 Delivery O2 Flow Rate FiO2 05/05/16 13:27 110 97/59 05/05/16 11:57 98.2 19 100 05/05/16 08:45 Nasal Cannula 2.0 05/05/16 04:24 28 Intake and Output 05/04/16 05/04/16 05/05/16 15:00 23:00 07:00 Intake Total 1480 ml Output Total 200 ml Balance 1280 ml Results Result Diagram: 05/05/16 0545 05/05/16 0545 Results 24 hrs Laboratory Tests Test 05/05/16 05:45 Anion Gap 15 Band Neutrophils % 18.0 H Blood Urea Nitrogen 26 #H Calcium Level 7.4 L Carbon Dioxide Level 19 L Chloride Level 102 Creatinine 1.51 H Eosinophils # 0.5 Eosinophils % 18.0 H Glucose Level 91 Hematocrit 29.8 L Hemoglobin 10.3 L Lymphocytes # 0.2 L Lymphocytes % 6.0 L Mean Corpuscular Hemoglobin 29.3 Mean Corpuscular Hemoglobin Concent 34.6 Mean Corpuscular Volume 84.7 Mean Platelet Volume 9.7 Monocytes # 0.1 L Monocytes % 4.0 Neutrophils # 1.5 L Neutrophils % 54.0 Platelet Count 162 # Potassium Level 3.5 Red Blood Count 3.52 L Red Cell Distribution Width 14.3 Sodium Level 132 L White Blood Count 2.7 #L Medications Medications Current Medications Diphenhydramine HCl (Benadryl) 25 mg Q6H PRN IV ITCHING Last administered on 10:02; Admin Dose 25 MG; Start 05/03/16 at 23:30 Morphine Sulfate (morphine) 2 mg Q4H PRN IV PAIN Last administered on 10:02; Admin Dose 2 MG; Start 05/03/16 at 23:30 Enoxaparin Sodium 40 mg 40 mg DAILY SC Last administered on 05/05/16 09:47; Admin Dose 40 MG; Start 05/04/16 at 09:00 Cefepime HCl (Maxipime 1gm/50 ml (Pmx)) 50 ml @ 100 mls/hr Q12 IVPB Last administered on 05/05/16 08:36; Admin Dose 100 MLS/HR; Start 05/04/16 at 09:00 Acetaminophen (Tylenol Tab) 650 mg Q4H PRN PO PAIN AND OR ELEVATED TEMP Last administered on 05/04/16 13:22; Admin Dose 650 MG; Start 05/03/16 at 23:30 Darunavir (Prezista) 800 mg DAILY PO Last administered on 05/05/16 08:36; Admin Dose 800 MG; Start 05/04/16 at 09:00 Acetaminophen/ Hydrocodone Bitart ([place] (5/325)) 1 tab Q4H PRN PO PAIN; Start 05/03/16 at 23:30 Multivitamins Therapeutic (Theragran) 1 tab DAILY PO Last administered on 08:36; Admin Dose 1 TAB; Start 05/04/16 at 09:00 Nystatin (Nystatin Susp) 5 ml QID PO Last administered on 05/05/16 12:15; Admin Dose 5 ML; Start 05/04/16 at 09:00 Atovaquone (Mepron) 1,500 mg DAILY PO Last administered on 05/05/16 08:36; Admin Dose 1,500 MG; Start 05/04/16 at 09:00 Azithromycin (Zithromax) 1,200 mg We@09 PO Last administered on 05/04/16 08:16 ; Admin Dose 1,200 MG; Start 05/04/16 at 09:00 Trimethoprim/ Sulfamethoxazole (Bactrim (Ds)) 1 tab DAILY PO Last administered on 05/05/16 08:36; Admin Dose 1 TAB; Start 05/04/16 at 09:00 Elvitegravir/ Cobicis/Emtricit/ Tenof (Stribild Tablet) 1 each DAILY PO Last administered on 05/05/16 09:43; Admin Dose 1 EACH; Start 05/04/16 at 09:00 Ibuprofen (Motrin) 400 mg Q6H PRN PO PAIN OR TEMP ABOVE 38C Last administered on 05/04/16 12:07; Admin Dose 400 MG; Start 05/04/16 at 11:30 Famotidine (Pepcid) 20 mg DAILY PO Last administered on 05/05/16 08:36; Admin Dose 20 MG; Start 05/04/16 at 12:30 Cyanocobalamin (Vitamin B12 Inj) 1,000 mcg Q28D IM Last administered on 09:45; Admin Dose 1,000 MCG; Start 05/04/16 at 09:00 Levofloxacin 500 mg 500 mg DAILY@06 PO Last administered on 05/05/16 05:34; Admin Dose 500 MG; Start 05/04/16 at 17:00 Norepinephrine 250 ml @ 1.875 mls/ hr TITRATE IV ; Start 05/04/16 at 18:30; Status Future Hold Vancomycin HCl/ Sodium Chloride (Vancocin/NS) 250 ml @ 83.333 mls/ hr Q24H IVPB ; Start 05/06/16 at 06:00 Hydrocortisone 1 applic 1 applic ONCE PRN TOP ITCHING; Start 05/05/16 at 12:00 ; Stop 05/08/16 at 11:59 Potassium Chloride/Sodium Chloride (NS-KCl 20 Meq) 1,000 ml @ 75 mls/hr [id number] IV Last administered on 05/05/16 13:08; Admin Dose 75 MLS/HR; Start at 12:30 GALILEA GOMEZ MD May 05, 2016 14:51
[2016-05-05] MEDS ORDERED: HYDROCORTISONE 100 MG INJ IV ONE (16:30)
[2016-05-05] MEDS: IMIPENEM-CILAST 500 MG/NS 100 ML IVPB SCH (17:12)
[2016-05-05] MEDS ORDERED: DILTIAZEM-D5W 125MG/125ML DRIP 125 ML IV SCH ×2 (18:30→19:00)
[2016-05-05] MEDS ORDERED: IMIPENEM/CILASTATIN 500 MG in SOD CHLORIDE 0.9% 250 ML IVPB SCH (21:00)
--- NOTE | 2016-05-05 23:09 | CONS ---
Date/Time of Note Date/Time of Note DATE: 05/05/16 TIME: 22:58 Assessment/Plan Assessment/Plan Problems: (1) Syncope Status: Acute (2) AIDS Status: Acute (3) Fever Status: Acute Qualifiers: Qualified Code: R50.9 - Fever, unspecified fever cause Additional Assessment/Plan New onset Afib JILL Sepsis Fevere AIDS IV cardizem drip for now CHADS 2 score is 1, ASA only or higher AC recommended. We should only use 325 ASA Contineu IV cardizem but once controlled we should start him on PO meds IV hydration for JILL LVEF is normal in last Echo. Will f/u Consultation Date/Type/Reason Admit Date/Time May 03, 2016 at 19:51 Date of Consultation: May 05, 2016 Type of Consultation: Interventional Cardiology Reason for Consultation Afib, CP Hx of Present Illness Patient iwth 66 year old M with AIDS recently started on meds, Esophagitis, HTN , who under went new onset Afib with RVR, now going at 150s but asymptomatic. His Cr went up from 0.9 to 1.5. No CP or SOB Constitutional: no complaints Eyes: no complaints Cardiovascular: no complaints Gastrointestinal: no complaints Genitourinary: no complaints Skin: pruritis Neurologic: no complaints Endocrine: no complaints Lymphatic: no complaints Psychological: nl mood/affect Past Medical History Medical History: angina Past Surgical History Past Surgical Hx: no surgical history Social History Smoking Status: Never smoker Exam/Review of Systems Vital Signs Vitals Vital Signs Date Time Temp Pulse Resp B/P Pulse Ox O2 Delivery O2 Flow Rate FiO2 05/05/16 20:26 104/67 05/05/16 20:22 99 05/05/16 20:06 98.1 15 100 05/05/16 19:30 2.0 27 05/05/16 08:45 Nasal Cannula Intake and Output 05/04/16 05/04/16 05/05/16 15:00 23:00 07:00 Intake Total 1480 ml Output Total 200 ml Balance 1280 ml Exam Constitutional: alert, oriented Psych: no complaints Head: normocephalic Eyes: nl conjunctiva ENMT: nl external ears & nose Neck: supple Respiratory: clear to auscultation Cardiovascular: irregular rhythm Gastrointestinal: nl liver, spleen Results Result Diagram: 05/05/16 0545 3/16/17 0545 Results 24 hrs Laboratory Tests Test 05/05/16 05:45 Anion Gap 15 Band Neutrophils % 18.0 H Blood Urea Nitrogen 26 #H Calcium Level 7.4 L Carbon Dioxide Level 19 L Chloride Level 102 Creatinine 1.51 H Eosinophils # 0.5 Eosinophils % 18.0 H Glucose Level 91 Hematocrit 29.8 L Hemoglobin 10.3 L Lymphocytes # 0.2 L Lymphocytes % 6.0 L Mean Corpuscular Hemoglobin 29.3 Mean Corpuscular Hemoglobin Concent 34.6 Mean Corpuscular Volume 84.7 Mean Platelet Volume 9.7 Monocytes # 0.1 L Monocytes % 4.0 Neutrophils # 1.5 L Neutrophils % 54.0 Platelet Count 162 # Potassium Level 3.5 Red Blood Count 3.52 L Red Cell Distribution Width 14.3 Sodium Level 132 L White Blood Count 2.7 #L Medications Medications Current Medications Diphenhydramine HCl (Benadryl) 25 mg Q6H PRN IV ITCHING Last administered on 20:29; Admin Dose 25 MG; Start 05/03/16 at 23:30 Morphine Sulfate (morphine) 2 mg Q4H PRN IV PAIN Last administered on 20:28; Admin Dose 2 MG; Start 05/03/16 at 23:30 Enoxaparin Sodium (Lovenox) 40 mg DAILY SC Last administered on 05/05/16 09:47 ; Admin Dose 40 MG; Start 05/04/16 at 09:00 Acetaminophen (Tylenol Tab) 650 mg Q4H PRN PO PAIN AND OR ELEVATED TEMP Last administered on 05/04/16 13:22; Admin Dose 650 MG; Start 05/03/16 at 23:30 Darunavir (Prezista) 800 mg DAILY PO Last administered on 05/05/16 08:36; Admin Dose 800 MG; Start 05/04/16 at 09:00 Acetaminophen/ Hydrocodone Bitart ([place] (5/325)) 1 tab Q4H PRN PO PAIN; Start 05/03/16 at 23:30 Multivitamins Therapeutic (Theragran) 1 tab DAILY PO Last administered on 08:36; Admin Dose 1 TAB; Start 05/04/16 at 09:00 Nystatin (Nystatin Susp) 5 ml QID PO Last administered on 05/05/16 20:28; Admin Dose 5 ML; Start 05/04/16 at 09:00 Atovaquone (Mepron) 1,500 mg DAILY PO Last administered on 05/05/16 08:36; Admin Dose 1,500 MG; Start 05/04/16 at 09:00 Azithromycin (Zithromax) 1,200 mg We@09 PO Last administered on 05/04/16 08:16 ; Admin Dose 1,200 MG; Start 05/04/16 at 09:00 Trimethoprim/ Sulfamethoxazole (Bactrim (Ds)) 1 tab DAILY PO Last administered on 05/05/16 08:36; Admin Dose 1 TAB; Start 05/04/16 at 09:00 Elvitegravir/ Cobicis/Emtricit/ Tenof (Stribild Tablet) 1 each DAILY PO Last administered on 05/05/16 09:43; Admin Dose 1 EACH; Start 05/04/16 at 09:00 Ibuprofen (Motrin) 400 mg Q6H PRN PO PAIN OR TEMP ABOVE 38C Last administered on 05/04/16 12:07; Admin Dose 400 MG; Start 05/04/16 at 11:30 Famotidine (Pepcid) 20 mg DAILY PO Last administered on 05/05/16 08:36; Admin Dose 20 MG; Start 05/04/16 at 12:30 Cyanocobalamin (Vitamin B12 Inj) 1,000 mcg Q28D IM Last administered on 09:45; Admin Dose 1,000 MCG; Start 05/04/16 at 09:00 Levofloxacin 500 mg 500 mg DAILY@06 PO Last administered on 05/05/16 05:34; Admin Dose 500 MG; Start 05/04/16 at 17:00 Norepinephrine 250 ml @ 1.875 mls/ hr TITRATE IV ; Start 05/04/16 at 18:30; Status Future Hold Vancomycin HCl/ Sodium Chloride (Vancocin/NS) 250 ml @ 83.333 mls/ hr Q24H IVPB ; Start 05/06/16 at 06:00 Hydrocortisone 1 applic 1 applic ONCE PRN TOP ITCHING Last administered on 05/05 21:58; Admin Dose 1 APPLIC; Start 05/05/16 at 12:00; Stop 05/08/16 at 11: 59 Potassium Chloride/Sodium Chloride (NS-KCl 20 Meq) 1,000 ml @ 75 mls/hr [id number] IV Last administered on 05/05/16 13:08; Admin Dose 75 MLS/HR; Start at 12:30 Loratadine 10 mg 10 mg DAILY PO ; Start 05/06/16 at 09:00 Imipenem/ Cilastatin Sodium 100 ml @ 100 mls/hr Q6 IVPB Last administered on 17:12; Admin Dose 100 MLS/HR; Start 05/05/16 at 18:00 Diltiazem HCl (Cardizem-D5W 125 Mg/125 ml Drip) 125 ml @ 5 mls/hr TITRATE IV Last administered on 05/05/16 18:51; Admin Dose 5 MLS/HR; Start 05/05/16 at 19: 00 MUSA REYES MD May 05, 2016 23:09
[2016-05-06] VITALS (11 sets, daily range): BP systolic 102–126; BP diastolic 53–91; PULSE 82–98; RESP 16–20
[2016-05-06] MEDS: morphine 2 MG INJ IV PRN ×3 (01:01→22:25)
[2016-05-06] MEDS: DIPHENHYDRAMINE 50 MG INJ IV PRN ×3 (01:01→22:26)
[2016-05-06] MEDS: NS + KCL 20 MEQ 1,000 ML IV SCH (01:02)
[2016-05-06] MEDS: SOD CHLORIDE 0.9% 1,000 ML IV SCH ×2 (01:02→12:50)
[2016-05-06] MEDS: IMIPENEM-CILAST 500 MG/NS 100 ML IVPB SCH ×4 (01:02→17:24)
[2016-05-06] MEDS ORDERED: VANCOMYCIN 1.25 GM in SOD CHLORIDE 0.9% 250 ML IVPB SCH (06:00)
[2016-05-06] MEDS: LEVOFLOXACIN 500 MG TAB PO SCH (06:36)
[2016-05-06 06:56] LABS: ADD SCAN DIFF NO
[2016-05-06 07:00] LABS: ABNORMAL IP MESSAGE 1; HEMATOCRIT 30.7 % (42.0-52.0); HEMOGLOBIN 10.7 g/dl (14.0-18.0); MEAN CORPUSCULAR HGB CONC 34.9 g/dl (32.0-37.0); MEAN CORPUSCULAR VOLUME 83.2 fl (82.0-101.0); MEAN PLATELET VOLUME 10.2 fl (7.4-10.4); PLATELET COUNT 158 10^3/UL (140-415); RED BLOOD COUNT 3.69 10^6/ul (4.70-6.10); RED CELL DISTRIBUTION WIDTH 14.5 % (11.5-14.5); WHITE BLOOD COUNT 2.1 10^3/ul (4.8-10.8)
[2016-05-06 07:21] LABS: CREATININE 0.79 mg/dl (0.61-1.24)
[2016-05-06 07:22] LABS: CALCIUM 8.1 mg/dl (8.4-10.2)
[2016-05-06 07:27] LABS: ALBUMIN 2.5 g/dl (3.3-4.9); POTASSIUM 4.2 mmol/L (3.5-5.1)
[2016-05-06 07:29] LABS: CREATININE 0.78 mg/dl (0.61-1.24)
[2016-05-06 07:30] LABS: ALBUMIN/GLOBULIN RATIO 0.83; CALCIUM 8.2 mg/dl (8.4-10.2); TOTAL PROTEIN 5.5 g/dl (6.1-8.1)
[2016-05-06] MEDS: NYSTATIN SUSP 5 ML CUP PO SCH ×4 (09:43→20:59)
[2016-05-06] MEDS: DARUNAVIR ETHANOLATE 800 MG TABLET PO SCH (09:44)
[2016-05-06] MEDS: LORATADINE 10 MG TAB PO SCH (09:44)
[2016-05-06] MEDS: FAMOTIDINE 20 MG TAB PO SCH (09:44)
[2016-05-06] MEDS: MULTIVITAMINS THERAPEUTIC TAB PO SCH (09:44)
[2016-05-06] MEDS: ATOVAQUONE 750 MG/5 ML CUP PO SCH (09:44)
[2016-05-06] MEDS: TRIMETHOPRIM/SULFAMETHOX (DS) TAB PO SCH (09:44)
[2016-05-06] MEDS: ENOXAPARIN 40 MG/0.4 ML SYG SC SCH (09:49)
[2016-05-06 09:57] LABS: EOSINOPHILS # 0.4 10^3/ul (0.0-0.5); LYMPHOCYTES # 0.3 10^3/ul (0.8-2.9); MONOCYTE # 0.1 10^3/ul (0.3-0.9); NEUTROPHIL # 1.1 10^3/ul (1.6-7.5)
[2016-05-06] MEDS: ELVITEGR/COBICIST/EMTRIC/TENOF 1 EACH TABLET PO SCH (11:47)
--- NOTE | 2016-05-06 11:50 | CONS ---
Date/Time of Note Date/Time of Note DATE: 05/06/16 TIME: 11:49 Assessment/Plan Assessment/Plan Chief Complaint/Hosp Course patient seen and examined. full note to follow momentarily Problems: Consultation Date/Type/Reason Admit Date/Time May 03, 2016 at 19:51 Type of Consultation: id Exam/Review of Systems Vital Signs Vitals Vital Signs Date Time Temp Pulse Resp B/P Pulse Ox O2 Delivery O2 Flow Rate FiO2 05/06/16 11:03 98.2 78 18 106/53 98 05/06/16 09:10 Nasal Cannula 2.0 05/05/16 19:30 27 Intake and Output 05/05/16 05/05/16 05/06/16 15:00 23:00 07:00 Intake Total 700 ml 500 ml Output Total 1400 ml 1200 ml Balance -700 ml -700 ml Results Result Diagram: 05/06/16 0615 05/06/16 0615 Results 24 hrs Laboratory Tests Test 05/06/16 06:14 05/06/16 06:15 Anion Gap 15 14 Blood Urea Nitrogen 15 # 16 Calcium Level 8.1 L 8.2 L Carbon Dioxide Level 21 21 Chloride Level 106 106 Creatinine 0.79 0.78 Glucose Level 100 100 Potassium Level 4.0 4.2 Sodium Level 138 137 Alanine Aminotransferase (ALT/SGPT) 33 Albumin 2.5 L Albumin/Globulin Ratio 0.83 Alkaline Phosphatase 59 Aspartate Amino Transf (AST/SGOT) 30 Band Neutrophils % 14.0 H Direct Bilirubin 0.00 Eosinophils # 0.4 Eosinophils % 18.0 H Globulin 3.00 Hematocrit 30.7 L Hemoglobin 10.7 L Indirect Bilirubin 0.0 Lymphocytes # 0.3 L Lymphocytes % 13.0 L Mean Corpuscular Hemoglobin 29.0 Mean Corpuscular Hemoglobin Concent 34.9 Mean Corpuscular Volume 83.2 Mean Platelet Volume 10.2 Monocytes # 0.1 L Monocytes % 5.0 Neutrophils # 1.1 L Neutrophils % 50.0 Platelet Count 158 Red Blood Count 3.69 L Red Cell Distribution Width 14.5 Total Bilirubin 0.0 L Total Protein 5.5 L White Blood Count 2.1 #L Medications Medications Current Medications Diphenhydramine HCl (Benadryl) 25 mg Q6H PRN IV ITCHING Last administered on t 01:01; Admin Dose 25 MG; Start 05/03/16 at 23:30 Morphine Sulfate (morphine) 2 mg Q4H PRN IV PAIN Last administered on 01:01; Admin Dose 2 MG; Start 05/03/16 at 23:30 Enoxaparin Sodium (Lovenox) 40 mg DAILY SC Last administered on 05/06/16 09:49 ; Admin Dose 40 MG; Start 05/04/16 at 09:00 Acetaminophen (Tylenol Tab) 650 mg Q4H PRN PO PAIN AND OR ELEVATED TEMP Last administered on 05/04/16 13:22; Admin Dose 650 MG; Start 05/03/16 at 23:30 Darunavir (Prezista) 800 mg DAILY PO Last administered on 05/06/16 09:44; Admin Dose 800 MG; Start 05/04/16 at 09:00 Acetaminophen/ Hydrocodone Bitart ([place] (5/325)) 1 tab Q4H PRN PO PAIN; Start 05/03/16 at 23:30 Multivitamins Therapeutic (Theragran) 1 tab DAILY PO Last administered on 09:44; Admin Dose 1 TAB; Start 05/04/16 at 09:00 Nystatin (Nystatin Susp) 5 ml QID PO Last administered on 05/06/16 09:43; Admin Dose 5 ML; Start 05/04/16 at 09:00 Atovaquone (Mepron) 1,500 mg DAILY PO Last administered on 05/06/16 09:44; Admin Dose 1,500 MG; Start 05/04/16 at 09:00 Azithromycin (Zithromax) 1,200 mg We@09 PO Last administered on 05/04/16 08:16 ; Admin Dose 1,200 MG; Start 05/04/16 at 09:00 Trimethoprim/ Sulfamethoxazole (Bactrim (Ds)) 1 tab DAILY PO Last administered on 05/06/16 09:44; Admin Dose 1 TAB; Start 05/04/16 at 09:00 Elvitegravir/ Cobicis/Emtricit/ Tenof (Stribild Tablet) 1 each DAILY PO Last administered on 05/05/16 09:43; Admin Dose 1 EACH; Start 05/04/16 at 09:00 Ibuprofen (Motrin) 400 mg Q6H PRN PO PAIN OR TEMP ABOVE 38C Last administered on 05/04/16 12:07; Admin Dose 400 MG; Start 05/04/16 at 11:30 Famotidine (Pepcid) 20 mg DAILY PO Last administered on 05/06/16 09:44; Admin Dose 20 MG; Start 05/04/16 at 12:30 Cyanocobalamin (Vitamin B12 Inj) 1,000 mcg Q28D IM Last administered on 09:45; Admin Dose 1,000 MCG; Start 05/04/16 at 09:00 Levofloxacin 500 mg 500 mg DAILY@06 PO Last administered on 05/06/16 06:36; Admin Dose 500 MG; Start 05/04/16 at 17:00 Norepinephrine (Levophed) 250 ml @ 1.875 mls/ hr TITRATE IV ; Start 05/04/16 at 18:30; Status Future Hold Hydrocortisone 1 applic 1 applic ONCE PRN TOP ITCHING Last administered on 05/05 21:58; Admin Dose 1 APPLIC; Start 05/05/16 at 12:00; Stop 05/08/16 at 11: 59 Potassium Chloride/Sodium Chloride (NS-KCl 20 Meq) 1,000 ml @ 75 mls/hr [id number] IV Last administered on 05/05/16 13:08; Admin Dose 75 MLS/HR; Start at 12:30 Loratadine 10 mg 10 mg DAILY PO Last administered on 05/06/16 09:44; Admin Dose 10 MG; Start 05/06/16 at 09:00 Imipenem/ Cilastatin Sodium 100 ml @ 100 mls/hr Q6 IVPB Last administered on 01:02; Admin Dose 100 MLS/HR; Start 05/05/16 at 18:00 Diltiazem HCl 125 ml @ 5 mls/hr TITRATE IV Last administered on 05/05/16 18:51 ; Admin Dose 5 MLS/HR; Start 05/05/16 at 19:00 Sodium Chloride 1,000 ml @ 75 mls/hr [id number] IV Last administered on 01:02; Admin Dose 75 MLS/HR; Start 05/05/16 at 23:30 Vancomycin HCl/ Sodium Chloride (Vancocin/NS) 250 ml @ 83.333 mls/ hr Q12H IVPB ; Start 05/06/16 at 18:00 Miscellaneous Information (*Rx Drug Level Order Reminder*) VANCO TROUGH @ 0, 500 ON... ONCE ONCE XX ; Start 05/07/16 at 05:00; Stop 05/07/16 at 05:01 GALILEA GOMEZ MD May 06, 2016 11:50
--- NOTE | 2016-05-06 13:31 | CONS ---
Date/Time of Note Date/Time of Note DATE: 05/06/16 TIME: 13:12 Assessment/Plan Assessment/Plan Chief Complaint/Hosp Course assessment/impression - Recurrent Neutropenic fever--resolving on current abx- cxs negative. wbc is recovering - advanced AIDS (CD<20, viral load 166,544 copies in 04/2016), was non-compliant with medications. Restarted on Stribild and darunavir on 04/23/2016 - neutropenia s/p BMBx, no e/o infections or malignancy on last admit CMV IHC negative, CMV PCR in serum was <200, cocci and crypto negative, QTB gold negative - h/o cough on admission, resolved. CXR showed overinflated lungs, CT showed benign appearing sub-centimeter nodule seen at the bilateral lung bases - h/o E. coli in urine, likely colonization. completed treatment for this - LUE weakness and pain due to tear of rotator cuff muscles and bicep tendon anchor - L cervical and supraclavicular lymphadenopathy probably due to HIV infection - h/o thrush, resolved - hyperpigmented lesions on b/l LE x several months according to Pt recommendations - Cont. vanco/imipenenm; will likely require a course of broad spect abx. If he spikes again then we will need to consider [place] CT scan. - d/c Bactrim and Levaquin - Monitor rash closley - Consider derm eval - monitor CBC and CMP closely - monitor symptoms of immune reconstitution - continue Stribild (tenofovir/emtricitabine/elvitaegravir/cobicistat) and darunavir 800mg (darunavir dosed at 800mg to simulate Prezcobix [darunavir 800mg /cobicistat 150mg), prophylaxis (atovaquone and azithromycin). Problems: Consultation Date/Type/Reason Admit Date/Time May 03, 2016 at 19:51 Date of Consultation: May 06, 2016 Type of Consultation: id Reason for Consultation fever Referring Provider: NAKIA LUNA MD Hx of Present Illness Mr. Coyne is a 66y/o man with HIV/AIDS who has been poorly compliant with HAART for at least the last year who has been admitted to [facility] multiple times. He was seen in October of 2014 for possible prostatitis. He was also recently seen for a possible Viral syndrome in spring and then mmost recently for neutropenic fever. He was discharged on Levaquin/Stribild and nystatin. He is now readmited with recurrent neutropenic fever. He has been placed on broad spectrum abx. His fever has resolved. cxs thus far are negative. He is being treated for afib with iv cardizem Subjective hx not possible: other (c/o rashb) Constitutional: no complaints Eyes: no complaints Cardiovascular: no complaints Gastrointestinal: no complaints Genitourinary: no complaints Skin: pruritis Neurologic: no complaints Endocrine: no complaints Lymphatic: no complaints Psychological: no complaints Past Medical History Medical History: angina Past Surgical History Past Surgical Hx: no surgical history Social History Smoking Status: Never smoker Exam/Review of Systems Vital Signs Vitals Vital Signs Date Time Temp Pulse Resp B/P Pulse Ox O2 Delivery O2 Flow Rate FiO2 05/06/16 12:18 87 05/06/16 11:03 98.2 18 106/53 98 05/06/16 09:10 Nasal Cannula 2.0 05/05/16 19:30 27 Intake and Output 05/05/16 05/05/16 05/06/16 15:00 23:00 07:00 Intake Total 700 ml 500 ml Output Total 1400 ml 1200 ml Balance -700 ml -700 ml Exam Constitutional: alert, oriented, well developed Psych: nl mood/affect, no complaints Head: atraumatic, normocephalic Eyes: EOMI, PERRL, nl conjunctiva, nl lids, nl sclera ENMT: nl external ears & nose, nl lips & teeth, nl nasal mucosa & septum Respiratory: clear to auscultation, normal air movement Cardiovascular: nl pulses, regular rate and rhythm Gastrointestinal: nl liver, spleen, non-tender, soft Extremities: normal pulses Neurological: SU[employer] PLASMA II-XII intact, nl mental status, nl speech, nl strength Skin: other (generalized eryhematous rash) Results Result Diagram: 05/06/16 0615 05/06/16 0615 Results 24 hrs Laboratory Tests Test 05/06/16 06:14 05/06/16 06:15 Anion Gap 15 14 Blood Urea Nitrogen 15 # 16 Calcium Level 8.1 L 8.2 L Carbon Dioxide Level 21 21 Chloride Level 106 106 Creatinine 0.79 0.78 Glucose Level 100 100 Potassium Level 4.0 4.2 Sodium Level 138 137 Alanine Aminotransferase (ALT/SGPT) 33 Albumin 2.5 L Albumin/Globulin Ratio 0.83 Alkaline Phosphatase 59 Aspartate Amino Transf (AST/SGOT) 30 Band Neutrophils % 14.0 H Direct Bilirubin 0.00 Eosinophils # 0.4 Eosinophils % 18.0 H Globulin 3.00 Hematocrit 30.7 L Hemoglobin 10.7 L Indirect Bilirubin 0.0 Lymphocytes # 0.3 L Lymphocytes % 13.0 L Mean Corpuscular Hemoglobin 29.0 Mean Corpuscular Hemoglobin Concent 34.9 Mean Corpuscular Volume 83.2 Mean Platelet Volume 10.2 Monocytes # 0.1 L Monocytes % 5.0 Neutrophils # 1.1 L Neutrophils % 50.0 Platelet Count 158 Red Blood Count 3.69 L Red Cell Distribution Width 14.5 Total Bilirubin 0.0 L Total Protein 5.5 L White Blood Count 2.1 #L Medications Medications Current Medications Diphenhydramine HCl (Benadryl) 25 mg Q6H PRN IV ITCHING Last administered on 01:01; Admin Dose 25 MG; Start 05/03/16 at 23:30 Morphine Sulfate (morphine) 2 mg Q4H PRN IV PAIN Last administered on 01:01; Admin Dose 2 MG; Start 05/03/16 at 23:30 Enoxaparin Sodium (Lovenox) 40 mg DAILY SC Last administered on 05/06/16 09:49 ; Admin Dose 40 MG; Start 05/04/16 at 09:00 Acetaminophen (Tylenol Tab) 650 mg Q4H PRN PO PAIN AND OR ELEVATED TEMP Last administered on 05/04/16 13:22; Admin Dose 650 MG; Start 05/03/16 at 23:30 Darunavir (Prezista) 800 mg DAILY PO Last administered on 05/06/16 09:44; Admin Dose 800 MG; Start 05/04/16 at 09:00 Acetaminophen/ Hydrocodone Bitart ([place] (5/325)) 1 tab Q4H PRN PO PAIN; Start 05/03/16 at 23:30 Multivitamins Therapeutic (Theragran) 1 tab DAILY PO Last administered on 09:44; Admin Dose 1 TAB; Start 05/04/16 at 09:00 Nystatin (Nystatin Susp) 5 ml QID PO Last administered on 05/06/16 12:55; Admin Dose 5 ML; Start 05/04/16 at 09:00 Atovaquone (Mepron) 1,500 mg DAILY PO Last administered on 05/06/16 09:44; Admin Dose 1,500 MG; Start 05/04/16 at 09:00 Azithromycin (Zithromax) 1,200 mg We@09 PO Last administered on 05/04/16 08:16 ; Admin Dose 1,200 MG; Start 05/04/16 at 09:00 Trimethoprim/ Sulfamethoxazole (Bactrim (Ds)) 1 tab DAILY PO Last administered on 05/06/16 09:44; Admin Dose 1 TAB; Start 05/04/16 at 09:00 Elvitegravir/ Cobicis/Emtricit/ Tenof (Stribild Tablet) 1 each DAILY PO Last administered on 05/06/16 11:47; Admin Dose 1 EACH; Start 05/04/16 at 09:00 Ibuprofen (Motrin) 400 mg Q6H PRN PO PAIN OR TEMP ABOVE 38C Last administered on 05/04/16 12:07; Admin Dose 400 MG; Start 05/04/16 at 11:30 Famotidine (Pepcid) 20 mg DAILY PO Last administered on 05/06/16 09:44; Admin Dose 20 MG; Start 05/04/16 at 12:30 Cyanocobalamin (Vitamin B12 Inj) 1,000 mcg Q28D IM Last administered on 09:45; Admin Dose 1,000 MCG; Start 05/04/16 at 09:00 Levofloxacin 500 mg 500 mg DAILY@06 PO Last administered on 05/06/16 06:36; Admin Dose 500 MG; Start 05/04/16 at 17:00 Norepinephrine (Levophed) 250 ml @ 1.875 mls/ hr TITRATE IV ; Start 05/04/16 at 18:30; Status Future Hold Hydrocortisone 1 applic 1 applic ONCE PRN TOP ITCHING Last administered on 05/05 21:58; Admin Dose 1 APPLIC; Start 05/05/16 at 12:00; Stop 05/08/16 at 11: 59 Potassium Chloride/Sodium Chloride (NS-KCl 20 Meq) 1,000 ml @ 75 mls/hr [id number] IV Last administered on 05/05/16 13:08; Admin Dose 75 MLS/HR; Start at 12:30 Loratadine 10 mg 10 mg DAILY PO Last administered on 05/06/16 09:44; Admin Dose 10 MG; Start 05/06/16 at 09:00 Imipenem/ Cilastatin Sodium 100 ml @ 100 mls/hr Q6 IVPB Last administered on 11:48; Admin Dose 100 MLS/HR; Start 05/05/16 at 18:00 Diltiazem HCl 125 ml @ 5 mls/hr TITRATE IV Last administered on 05/05/16 18:51 ; Admin Dose 5 MLS/HR; Start 05/05/16 at 19:00 Sodium Chloride 1,000 ml @ 75 mls/hr [id number] IV Last administered on 01:02; Admin Dose 75 MLS/HR; Start 05/05/16 at 23:30 Vancomycin HCl/ Sodium Chloride (Vancocin/NS) 250 ml @ 83.333 mls/ hr Q12H IVPB ; Start 05/06/16 at 18:00 Miscellaneous Information (*Rx Drug Level Order Reminder*) VANCO TROUGH @ 0, 500 ON... ONCE ONCE XX ; Start 05/07/16 at 05:00; Stop 05/07/16 at 05:01 GALILEA GOMEZ MD May 06, 2016 13:24
--- NOTE | 2016-05-06 15:56 | CONS ---
Date/Time of Note Date/Time of Note DATE: 05/06/16 TIME: 15:55 Consult Date/Type/Reason Admit Date/Time May 03, 2016 at 19:51 Initial Consult Date 05/06/16 Type of Consultation: id Ordering Provider: NAKIA LUNA MD Objective Vital Signs Date Time Temp Pulse Resp B/P Pulse Ox O2 Delivery O2 Flow Rate FiO2 05/06/16 15:16 98.2 78 18 105/67 97 05/06/16 15:03 2.0 05/06/16 09:10 Nasal Cannula 05/05/16 19:30 27 Intake and Output 05/05/16 05/05/16 05/06/16 15:00 23:00 07:00 Intake Total 700 ml 500 ml Output Total 1400 ml 1200 ml Balance -700 ml -700 ml Results/Medications Result Diagram: 05/06/16 0615 05/06/16 0615 Results 24 hrs Laboratory Tests Test 05/06/16 06:14 05/06/16 06:15 Anion Gap 15 14 Blood Urea Nitrogen 15 # 16 Calcium Level 8.1 L 8.2 L Carbon Dioxide Level 21 21 Chloride Level 106 106 Creatinine 0.79 0.78 Glucose Level 100 100 Potassium Level 4.0 4.2 Sodium Level 138 137 Alanine Aminotransferase (ALT/SGPT) 33 Albumin 2.5 L Albumin/Globulin Ratio 0.83 Alkaline Phosphatase 59 Aspartate Amino Transf (AST/SGOT) 30 Band Neutrophils % 14.0 H Direct Bilirubin 0.00 Eosinophils # 0.4 Eosinophils % 18.0 H Globulin 3.00 Hematocrit 30.7 L Hemoglobin 10.7 L Indirect Bilirubin 0.0 Lymphocytes # 0.3 L Lymphocytes % 13.0 L Mean Corpuscular Hemoglobin 29.0 Mean Corpuscular Hemoglobin Concent 34.9 Mean Corpuscular Volume 83.2 Mean Platelet Volume 10.2 Monocytes # 0.1 L Monocytes % 5.0 Neutrophils # 1.1 L Neutrophils % 50.0 Platelet Count 158 Red Blood Count 3.69 L Red Cell Distribution Width 14.5 Total Bilirubin 0.0 L Total Protein 5.5 L White Blood Count 2.1 #L Medications Current Medications Diphenhydramine HCl (Benadryl) 25 mg Q6H PRN IV ITCHING Last administered on t 15:09; Admin Dose 25 MG; Start 05/03/16 at 23:30 Morphine Sulfate (morphine) 2 mg Q4H PRN IV PAIN Last administered on 15:09; Admin Dose 2 MG; Start 05/03/16 at 23:30 Enoxaparin Sodium (Lovenox) 40 mg DAILY SC Last administered on 05/06/16 09:49 ; Admin Dose 40 MG; Start 05/04/16 at 09:00 Acetaminophen (Tylenol Tab) 650 mg Q4H PRN PO PAIN AND OR ELEVATED TEMP Last administered on 05/04/16 13:22; Admin Dose 650 MG; Start 05/03/16 at 23:30 Darunavir (Prezista) 800 mg DAILY PO Last administered on 05/06/16 09:44; Admin Dose 800 MG; Start 05/04/16 at 09:00 Acetaminophen/ Hydrocodone Bitart ([place] (5/325)) 1 tab Q4H PRN PO PAIN; Start 05/03/16 at 23:30 Multivitamins Therapeutic (Theragran) 1 tab DAILY PO Last administered on 09:44; Admin Dose 1 TAB; Start 05/04/16 at 09:00 Nystatin (Nystatin Susp) 5 ml QID PO Last administered on 05/06/16 12:55; Admin Dose 5 ML; Start 05/04/16 at 09:00 Atovaquone (Mepron) 1,500 mg DAILY PO Last administered on 05/06/16 09:44; Admin Dose 1,500 MG; Start 05/04/16 at 09:00 Azithromycin (Zithromax) 1,200 mg We@09 PO Last administered on 05/04/16 08:16 ; Admin Dose 1,200 MG; Start 05/04/16 at 09:00 Elvitegravir/ Cobicis/Emtricit/ Tenof (Stribild Tablet) 1 each DAILY PO Last administered on 05/06/16 11:47; Admin Dose 1 EACH; Start 05/04/16 at 09:00 Ibuprofen (Motrin) 400 mg Q6H PRN PO PAIN OR TEMP ABOVE 38C Last administered on 05/04/16 12:07; Admin Dose 400 MG; Start 05/04/16 at 11:30 Famotidine (Pepcid) 20 mg DAILY PO Last administered on 05/06/16 09:44; Admin Dose 20 MG; Start 05/04/16 at 12:30 Cyanocobalamin 1000 mcg 1,000 mcg Q28D IM Last administered on 05/05/16 09:45 ; Admin Dose 1,000 MCG; Start 05/04/16 at 09:00 Norepinephrine (Levophed) 250 ml @ 1.875 mls/ hr TITRATE IV ; Start 05/04/16 at 18:30; Status Future Hold Hydrocortisone 1 applic 1 applic ONCE PRN TOP ITCHING Last administered on 05/05 21:58; Admin Dose 1 APPLIC; Start 05/05/16 at 12:00; Stop 05/08/16 at 11: 59 Potassium Chloride/Sodium Chloride (NS-KCl 20 Meq) 1,000 ml @ 75 mls/hr [id number] IV Last administered on 05/05/16 13:08; Admin Dose 75 MLS/HR; Start at 12:30 Loratadine 10 mg 10 mg DAILY PO Last administered on 05/06/16 09:44; Admin Dose 10 MG; Start 05/06/16 at 09:00 Imipenem/ Cilastatin Sodium 100 ml @ 100 mls/hr Q6 IVPB Last administered on 11:48; Admin Dose 100 MLS/HR; Start 05/05/16 at 18:00 Sodium Chloride 1,000 ml @ 75 mls/hr [id number] IV Last administered on 01:02; Admin Dose 75 MLS/HR; Start 05/05/16 at 23:30 Vancomycin HCl/ Sodium Chloride (Vancocin/NS) 250 ml @ 83.333 mls/ hr Q12H IVPB ; Start 05/06/16 at 18:00 Miscellaneous Information (*Rx Drug Level Order Reminder*) VANCO TROUGH @ 0, 500 ON... ONCE ONCE XX ; Start 05/07/16 at 05:00; Stop 05/07/16 at 05:01 Diltiazem HCl (Cardizem) 120 mg DAILY PO ; Start 05/07/16 at 09:00 Aspirin (Aspirin) 325 mg DAILY PO ; Start 05/07/16 at 09:00 Assessment/Plan Chief Complaint/Hosp Course Patient iwth 66 year old M with AIDS recently started on meds, Esophagitis, HTN , who under went new onset Afib with RVR, now going at 150s but asymptomatic. His Cr went up from 0.9 to 1.5. No CP or SOB Problems: Additional Assessment/Plan Converted to sinus Cardizem PO stop IV ASA 325mg daily will /fu MUSA REYES MD May 06, 2016 15:55
[2016-05-06] MEDS: ARTIFICIAL TEARS 15 ML OPH BOTH EYES SCH ×2 (17:24→20:58)
--- NOTE | 2016-05-06 17:27 | PN ---
Date/Time of Note Date/Time of Note DATE: 05/06/16 TIME: 17:22 Assessment/Plan VTE Prophylaxis VTE Prophylaxis Intervention: SCD's Lines/Catheters IV Catheter Type (from [facility]): Peripheral IV Urinary Cath still in place: No Assessment/Plan Chief Complaint/Hosp Course ASSESSMENT AND PLAN: 1. Neutropenic fever. Dr. Narayanan is following infectious disease consultation. Continue neutropenic precautions. Continue broad spectrum antibiotics. Follow up on urine and blood cultures. 2. AIDS. We will continue the patient on Stribild, darunavir and Mepron. Continue azithromycin. 3. Medical compliance. We will continue antipyretics and pain medication, Zofran p.r.n. for nausea. Sequential compression devices for deep venous thrombosis prophylaxis and Pepcid for peptic ulcer disease prophylaxis. Further recommendations based on clinical course. Plan of care discussed with Dr. Walden. Problems: Subjective 24 Hr Interval Summary Free Text/Dictation No fever, denies N/V, complains of eyes dryness, no redness noted. Exam/Review of Systems Vital Signs Vitals Vital Signs Date Time Temp Pulse Resp B/P Pulse Ox O2 Delivery O2 Flow Rate FiO2 05/06/16 16:30 82 05/06/16 15:16 98.2 18 105/67 97 05/06/16 15:03 2.0 05/06/16 09:10 Nasal Cannula 05/05/16 19:30 27 Intake and Output 05/05/16 05/05/16 05/06/16 15:00 23:00 07:00 Intake Total 700 ml 500 ml Output Total 1400 ml 1200 ml Balance -700 ml -700 ml Exam GENERAL: Well-developed, well-nourished male currently is tachycardic, febrile and has chills. Awake, alert and oriented x2. HEENT: Head is atraumatic, normocephalic. Pupils equal, round, reactive to light and accommodation. Oral mucosa is pink and moist. NECK: Supple, no cervical lymphadenopathy. No thyromegaly. LUNGS: Slightly diminished at the bases. Clear in the upper lobes. There are no wheezes, rhonchi noted. CARDIOVASCULAR: The patient is tachycardic. Normal S1, S2. No murmurs, gallops, clicks, rubs noted. ABDOMEN: Round, soft, nondistended, nontender. Bowel sounds present. No guarding, no rebound tenderness. EXTREMITIES: There is no edema, clubbing, cyanosis. Pulses equal bilaterally 2 +. SKIN: The patient has diffuse erythema all over his body. There is no maculopapular rash, no petechiae. No ecchymosis noted. NEUROLOGIC: Patient is awake, alert and oriented. Results Result Diagram: 05/06/16 0615 05/06/16 0615 Results 24 hrs Laboratory Tests Test 05/06/16 06:14 05/06/16 06:15 Anion Gap 15 14 Blood Urea Nitrogen 15 # 16 Calcium Level 8.1 L 8.2 L Carbon Dioxide Level 21 21 Chloride Level 106 106 Creatinine 0.79 0.78 Glucose Level 100 100 Potassium Level 4.0 4.2 Sodium Level 138 137 Alanine Aminotransferase (ALT/SGPT) 33 Albumin 2.5 L Albumin/Globulin Ratio 0.83 Alkaline Phosphatase 59 Aspartate Amino Transf (AST/SGOT) 30 Band Neutrophils % 14.0 H Direct Bilirubin 0.00 Eosinophils # 0.4 Eosinophils % 18.0 H Globulin 3.00 Hematocrit 30.7 L Hemoglobin 10.7 L Indirect Bilirubin 0.0 Lymphocytes # 0.3 L Lymphocytes % 13.0 L Mean Corpuscular Hemoglobin 29.0 Mean Corpuscular Hemoglobin Concent 34.9 Mean Corpuscular Volume 83.2 Mean Platelet Volume 10.2 Monocytes # 0.1 L Monocytes % 5.0 Neutrophils # 1.1 L Neutrophils % 50.0 Platelet Count 158 Red Blood Count 3.69 L Red Cell Distribution Width 14.5 Total Bilirubin 0.0 L Total Protein 5.5 L White Blood Count 2.1 #L Medications Medications Current Medications Diphenhydramine HCl (Benadryl) 25 mg Q6H PRN IV ITCHING Last administered on 15:09; Admin Dose 25 MG; Start 05/03/16 at 23:30 Morphine Sulfate (morphine) 2 mg Q4H PRN IV PAIN Last administered on 15:09; Admin Dose 2 MG; Start 05/03/16 at 23:30 Enoxaparin Sodium (Lovenox) 40 mg DAILY SC Last administered on 05/06/16 09:49 ; Admin Dose 40 MG; Start 05/04/16 at 09:00 Acetaminophen (Tylenol Tab) 650 mg Q4H PRN PO PAIN AND OR ELEVATED TEMP Last administered on 05/04/16 13:22; Admin Dose 650 MG; Start 05/03/16 at 23:30 Darunavir (Prezista) 800 mg DAILY PO Last administered on 05/06/16 09:44; Admin Dose 800 MG; Start 05/04/16 at 09:00 Acetaminophen/ Hydrocodone Bitart ([place] (5/325)) 1 tab Q4H PRN PO PAIN; Start 05/03/16 at 23:30 Multivitamins Therapeutic (Theragran) 1 tab DAILY PO Last administered on 09:44; Admin Dose 1 TAB; Start 05/04/16 at 09:00 Nystatin (Nystatin Susp) 5 ml QID PO Last administered on 05/06/16 12:55; Admin Dose 5 ML; Start 05/04/16 at 09:00 Atovaquone (Mepron) 1,500 mg DAILY PO Last administered on 05/06/16 09:44; Admin Dose 1,500 MG; Start 05/04/16 at 09:00 Azithromycin (Zithromax) 1,200 mg We@09 PO Last administered on 05/04/16 08:16 ; Admin Dose 1,200 MG; Start 05/04/16 at 09:00 Elvitegravir/ Cobicis/Emtricit/ Tenof (Stribild Tablet) 1 each DAILY PO Last administered on 05/06/16 11:47; Admin Dose 1 EACH; Start 05/04/16 at 09:00 Ibuprofen (Motrin) 400 mg Q6H PRN PO PAIN OR TEMP ABOVE 38C Last administered on 05/04/16 12:07; Admin Dose 400 MG; Start 05/04/16 at 11:30 Famotidine (Pepcid) 20 mg DAILY PO Last administered on 05/06/16 09:44; Admin Dose 20 MG; Start 05/04/16 at 12:30 Cyanocobalamin 1000 mcg 1,000 mcg Q28D IM Last administered on 05/05/16 09:45 ; Admin Dose 1,000 MCG; Start 05/04/16 at 09:00 Norepinephrine (Levophed) 250 ml @ 1.875 mls/ hr TITRATE IV ; Start 05/04/16 at 18:30; Status Future Hold Hydrocortisone (Hydrocortisone 1% Cr) 1 applic ONCE PRN TOP ITCHING Last administered on 05/05/16 21:58; Admin Dose 1 APPLIC; Start 05/05/16 at 12:00; Stop 05/08/16 at 11:59 Loratadine 10 mg 10 mg DAILY PO Last administered on 05/06/16 09:44; Admin Dose 10 MG; Start 05/06/16 at 09:00 Imipenem/ Cilastatin Sodium 100 ml @ 100 mls/hr Q6 IVPB Last administered on 11:48; Admin Dose 100 MLS/HR; Start 05/05/16 at 18:00 Sodium Chloride 1,000 ml @ 75 mls/hr [id number] IV Last administered on 01:02; Admin Dose 75 MLS/HR; Start 05/05/16 at 23:30 Vancomycin HCl/ Sodium Chloride (Vancocin/NS) 250 ml @ 83.333 mls/ hr Q12H IVPB ; Start 05/06/16 at 18:00 Miscellaneous Information (*Rx Drug Level Order Reminder*) VANCO TROUGH @ 0, 500 ON... ONCE ONCE XX ; Start 05/07/16 at 05:00; Stop 05/07/16 at 05:01 Diltiazem HCl (Cardizem) 120 mg DAILY PO ; Start 05/07/16 at 09:00 Aspirin (Aspirin) 325 mg DAILY PO ; Start 05/07/16 at 09:00 Eye Lubricant (Artificial Tears Oph) 2 drop QID BOTH EYES ; Start 05/06/16 at 17 :00 AAKASH MITCHELL May 06, 2016 17:26
[2016-05-06] MEDS: VANCOMYCIN 1.25 GM in SOD CHLORIDE 0.9% 250 ML IVPB SCH (18:29)
[2016-05-07] VITALS (13 sets, daily range): BP systolic 100–132; BP diastolic 57–79; PULSE 77–96; RESP 17–20
[2016-05-07] MEDS: IMIPENEM-CILAST 500 MG/NS 100 ML IVPB SCH ×4 (00:16→17:15)
[2016-05-07] MEDS: ACETAMINOPHEN 325 MG TAB PO PRN (00:18)
[2016-05-07] MEDS: SOD CHLORIDE 0.9% 1,000 ML IV SCH ×2 (02:18→15:30)
[2016-05-07 05:51] LABS: ADD SCAN DIFF NO
[2016-05-07 05:59] LABS: ABNORMAL IP MESSAGE 1; HEMATOCRIT 30.5 % (42.0-52.0); HEMOGLOBIN 10.6 g/dl (14.0-18.0); MEAN CORPUSCULAR HGB CONC 34.8 g/dl (32.0-37.0); MEAN CORPUSCULAR VOLUME 83.3 fl (82.0-101.0); MEAN PLATELET VOLUME 9.7 fl (7.4-10.4); PLATELET COUNT 153 10^3/UL (140-415); RED BLOOD COUNT 3.66 10^6/ul (4.70-6.10); RED CELL DISTRIBUTION WIDTH 14.6 % (11.5-14.5); WHITE BLOOD COUNT 2.3 10^3/ul (4.8-10.8)
[2016-05-07 06:03] LABS: POTASSIUM 3.9 mmol/L (3.5-5.1)
[2016-05-07 06:06] LABS: CREATININE 0.92 mg/dl (0.61-1.24)
[2016-05-07 06:07] LABS: CALCIUM 8.1 mg/dl (8.4-10.2)
[2016-05-07] MEDS: VANCOMYCIN 1.25 GM in SOD CHLORIDE 0.9% 250 ML IVPB SCH (06:24)
[2016-05-07] MEDS ORDERED: DILTIAZEM 120 MG TAB PO SCH (09:00)
[2016-05-07] MEDS: MULTIVITAMINS THERAPEUTIC TAB PO SCH (09:08)
[2016-05-07] MEDS: ELVITEGR/COBICIST/EMTRIC/TENOF 1 EACH TABLET PO SCH (09:08)
[2016-05-07] MEDS: DARUNAVIR ETHANOLATE 800 MG TABLET PO SCH (09:09)
[2016-05-07] MEDS: NYSTATIN SUSP 5 ML CUP PO SCH ×4 (09:09→21:00)
[2016-05-07] MEDS: FAMOTIDINE 20 MG TAB PO SCH (09:09)
[2016-05-07] MEDS: LORATADINE 10 MG TAB PO SCH (09:09)
[2016-05-07] MEDS: ASPIRIN 325 MG TAB PO SCH (09:09)
[2016-05-07] MEDS: ATOVAQUONE 750 MG/5 ML CUP PO SCH (09:10)
[2016-05-07] MEDS: ARTIFICIAL TEARS 15 ML OPH BOTH EYES SCH ×4 (09:10→21:55)
[2016-05-07] MEDS: DILTIAZEM 60 MG TAB PO SCH (09:11)
[2016-05-07] MEDS: ENOXAPARIN 40 MG/0.4 ML SYG SC SCH (09:13)
--- NOTE | 2016-05-07 11:57 | CONS ---
Date/Time of Note Date/Time of Note DATE: 05/07/16 TIME: 11:53 Assessment/Plan Assessment/Plan Chief Complaint/Hosp Course assessment/impression - recurrent neutropenic fever, infectious process vs. immune reconstitution inflammatory response - advanced AIDS (CD<20, viral load 166,544 copies in 04/2016), was non-compliant with medications. Restarted on Stribild and darunavir on 04/23/2016 - neutropenia s/p BMBx, no e/o infections or malignancy at this time. CMV IHC negative, CMV PCR in serum was <200, cocci and crypto negative, QTB gold negative - h/o cough in 03/2016. CXR showed overinflated lungs, CT showed benign appearing sub-centimeter nodule seen at the bilateral lung bases - h/o E. coli in urine, likely colonization. completed treatment for this - LUE weakness and pain due to tear of rotator cuff muscles and bicep tendon anchor - L cervical and supraclavicular lymphadenopathy probably due to HIV infection - h/o thrush, resolved - hyperpigmented lesions on b/l LE x several months according to Pt - pruritis - eosinophilia recommendations - for recurrent fever: repeat blood cultures, urinalysis and urine culture, AFB blood culture, LDH, CT of neck/chest/abd/pel to r/o occult infection - check CD4 count and HIV viral load for surveillance - eosinophilia and pruritis: stool O&P ordered. Will change atovaquone to Bactrim three times a week for a possibility of atovaquone-related rash. Pt's CBC have improved and so I will re-try Bactrim - continue empiric vancomycin and imipenem - continue Stribild (tenofovir/emtricitabine/elvitaegravir/cobicistat) and darunavir 800mg (darunavir dosed at 800mg to simulate Prezcobix (darunavir 800mg /cobicistat 150mg) - continue azithromycin for MAC prophylaxis management d/w Pt and her RN the total time I took to care for this Pt today was from 1145 to 1230 Problems: Consultation Date/Type/Reason Admit Date/Time May 03, 2016 at 19:51 Initial Consult Date 05/06/16 Type of Consultation: ID Referring Provider: NAKIA LUNA MD 24 HR Interval Summary Constitutional: febrile Detailed Summary Eyes: no complaints ENT: no complaints Respiratory: no complaints Cardiovascular: no complaints Gastrointestinal: no complaints Genitourinary: no complaints Musculoskeletal: bone/joint pain Skin: pruritis Neurologic: focal-weakness Lymphatic: no complaints Immunologic: pruritis Exam/Review of Systems Vital Signs Vitals Vital Signs Date Time Temp Pulse Resp B/P Pulse Ox O2 Delivery O2 Flow Rate FiO2 05/07/16 11:51 97.6 63 18 104/63 94 05/07/16 08:33 Nasal Cannula 2.0 05/05/16 19:30 27 Intake and Output 05/06/16 05/06/16 05/07/16 14:59 22:59 06:59 Intake Total 875 ml 1525 ml 1000 ml Output Total 1140 ml Balance 875 ml 385 ml 1000 ml Exam Constitutional: alert, oriented, well developed Psych: nl mood/affect, no complaints Head: atraumatic, normocephalic Eyes: nl conjunctiva, nl lids ENMT: nl external ears & nose, nl nasal mucosa & septum Neck: supple Respiratory: clear to auscultation, normal air movement Cardiovascular: nl pulses, regular rate and rhythm Gastrointestinal: nl liver, spleen, non-tender, soft, No distended, No tender Extremities: No edema Neurological: focal weakness Skin: other (hyperpigmented lesions on b/l LE and back), rash or lesions ( erythroderma of the face) Results Result Diagram: 05/07/16 0515 05/07/16 0515 Results 24 hrs Laboratory Tests Test 05/07/16 05:15 Anion Gap 14 Blood Urea Nitrogen 14 Calcium Level 8.1 L Carbon Dioxide Level 21 Chloride Level 108 Creatinine 0.92 Glucose Level 77 Hematocrit 30.5 L Hemoglobin 10.6 L Lymphocytes # Lymphocytes % Mean Corpuscular Hemoglobin 29.0 Mean Corpuscular Hemoglobin Concent 34.8 Mean Corpuscular Volume 83.3 Mean Platelet Volume 9.7 Monocytes # Monocytes % Neutrophils # Neutrophils % Platelet Count 153 Potassium Level 3.9 Red Blood Count 3.66 L Red Cell Distribution Width 14.6 H Sodium Level 139 Vancomycin Level Trough 12.9 White Blood Count 2.3 L Medications Medications Current Medications Diphenhydramine HCl (Benadryl) 25 mg Q6H PRN IV ITCHING Last administered on t 22:26; Admin Dose 25 MG; Start 05/03/16 at 23:30 Morphine Sulfate (morphine) 2 mg Q4H PRN IV PAIN Last administered on 22:25; Admin Dose 2 MG; Start 05/03/16 at 23:30 Enoxaparin Sodium (Lovenox) 40 mg DAILY SC Last administered on 05/07/16 09:13 ; Admin Dose 40 MG; Start 05/04/16 at 09:00 Acetaminophen (Tylenol Tab) 650 mg Q4H PRN PO PAIN AND OR ELEVATED TEMP Last administered on 05/07/16 00:18; Admin Dose 650 MG; Start 05/03/16 at 23:30 Darunavir (Prezista) 800 mg DAILY PO Last administered on 05/07/16 09:09; Admin Dose 800 MG; Start 05/04/16 at 09:00 Acetaminophen/ Hydrocodone Bitart ([place] (5/325)) 1 tab Q4H PRN PO PAIN; Start 05/03/16 at 23:30 Multivitamins Therapeutic (Theragran) 1 tab DAILY PO Last administered on 09:08; Admin Dose 1 TAB; Start 05/04/16 at 09:00 Nystatin (Nystatin Susp) 5 ml QID PO Last administered on 05/07/16 09:09; Admin Dose 5 ML; Start 05/04/16 at 09:00 Atovaquone (Mepron) 1,500 mg DAILY PO Last administered on 05/07/16 09:10; Admin Dose 1,500 MG; Start 05/04/16 at 09:00 Azithromycin (Zithromax) 1,200 mg We@09 PO Last administered on 05/04/16 08:16 ; Admin Dose 1,200 MG; Start 05/04/16 at 09:00 Elvitegravir/ Cobicis/Emtricit/ Tenof (Stribild Tablet) 1 each DAILY PO Last administered on 05/07/16 09:08; Admin Dose 1 EACH; Start 05/04/16 at 09:00 Ibuprofen (Motrin) 400 mg Q6H PRN PO PAIN OR TEMP ABOVE 38C Last administered on 05/04/16 12:07; Admin Dose 400 MG; Start 05/04/16 at 11:30 Famotidine (Pepcid) 20 mg DAILY PO Last administered on 05/07/16 09:09; Admin Dose 20 MG; Start 05/04/16 at 12:30 Cyanocobalamin 1000 mcg 1,000 mcg Q28D IM Last administered on 05/05/16 09:45 ; Admin Dose 1,000 MCG; Start 05/04/16 at 09:00 Norepinephrine (Levophed) 250 ml @ 1.875 mls/ hr TITRATE IV ; Start 05/04/16 at 18:30; Status Future Hold Hydrocortisone (Hydrocortisone 1% Cr) 1 applic ONCE PRN TOP ITCHING Last administered on 05/05/16 21:58; Admin Dose 1 APPLIC; Start 05/05/16 at 12:00; Stop 05/08/16 at 11:59 Loratadine 10 mg 10 mg DAILY PO Last administered on 05/07/16 09:09; Admin Dose 10 MG; Start 05/06/16 at 09:00 Imipenem/ Cilastatin Sodium 100 ml @ 100 mls/hr Q6 IVPB Last administered on 05:25; Admin Dose 100 MLS/HR; Start 05/05/16 at 18:00 Sodium Chloride (NS) 1,000 ml @ 75 mls/hr [id number] IV Last administered on 05/07 02:18; Admin Dose 75 MLS/HR; Start 05/05/16 at 23:30 Aspirin (Aspirin) 325 mg DAILY PO Last administered on 05/07/16 09:09; Admin Dose 325 MG; Start 05/07/16 at 09:00 Eye Lubricant (Artificial Tears Oph) 2 drop QID BOTH EYES Last administered on 05/07/16 09:10; Admin Dose 2 DROP; Start 05/06/16 at 17:00 Diltiazem HCl 120 mg 120 mg DAILY PO Last administered on 05/07/16 09:11; Admin Dose 120 MG; Start 05/07/16 at 09:00 Vancomycin HCl/ Sodium Chloride (Vancocin/NS) 250 ml @ 83.333 mls/ hr Q12H IVPB ; Start 05/07/16 at 18:00 JACK LAIRD M.D. May 07, 2016 11:57
--- NOTE | 2016-05-07 12:00 | PN ---
Date/Time of Note Date/Time of Note DATE: 05/07/16 TIME: 11:59 Assessment/Plan VTE Prophylaxis VTE Prophylaxis Intervention: other Lines/Catheters IV C[facility] Type (from [facility] Peripheral IV Urinary Cath still in place: No Assessment/Plan Chief Complaint/Hosp Course 1. Neutropenic fever. Dr. Narayanan is following infectious disease consultation. Continue neutropenic precautions. Continue broad spectrum antibiotics. Follow up on urine and blood cultures. 2. AIDS. We will continue the patient on Stribild, darunavir and Mepron. Continue azithromycin. 3. Medical compliance. We will continue antipyretics and pain medication, Zofran p.r.n. for nausea. Problems: Subjective 24 Hr Interval Summary Free Text/Dictation Patient has no complaints Exam/Review of Systems Vital Signs Vitals Vital Signs Date Time Temp Pulse Resp B/P Pulse Ox O2 Delivery O2 Flow Rate FiO2 05/07/16 11:51 97.6 63 18 104/63 94 05/07/16 08:33 Nasal Cannula 2.0 05/05/16 19:30 27 Intake and Output 05/06/16 05/06/16 05/07/16 15:00 23:00 07:00 Intake Total 875 ml 1525 ml 1000 ml Output Total 1140 ml Balance 875 ml 385 ml 1000 ml Exam Constitutional: well developed Head: atraumatic, normocephalic Neck: supple Respiratory: clear to auscultation Cardiovascular: regular rate and rhythm Gastrointestinal: non-tender, soft Extremities: normal pulses Results Result Diagram: 05/07/16 0515 05/07/16 0515 Results 24 hrs Laboratory Tests Test 05/07/16 05:15 Anion Gap 14 Blood Urea Nitrogen 14 Calcium Level 8.1 L Carbon Dioxide Level 21 Chloride Level 108 Creatinine 0.92 Glucose Level 77 Hematocrit 30.5 L Hemoglobin 10.6 L Lymphocytes # Lymphocytes % Mean Corpuscular Hemoglobin 29.0 Mean Corpuscular Hemoglobin Concent 34.8 Mean Corpuscular Volume 83.3 Mean Platelet Volume 9.7 Monocytes # Monocytes % Neutrophils # Neutrophils % Platelet Count 153 Potassium Level 3.9 Red Blood Count 3.66 L Red Cell Distribution Width 14.6 H Sodium Level 139 Vancomycin Level Trough 12.9 White Blood Count 2.3 L Medications Medications Current Medications Diphenhydramine HCl (Benadryl) 25 mg Q6H PRN IV ITCHING Last administered on 22:26; Admin Dose 25 MG; Start 05/03/16 at 23:30 Morphine Sulfate (morphine) 2 mg Q4H PRN IV PAIN Last administered on 22:25; Admin Dose 2 MG; Start 05/03/16 at 23:30 Enoxaparin Sodium (Lovenox) 40 mg DAILY SC Last administered on 05/07/16 09:13 ; Admin Dose 40 MG; Start 05/04/16 at 09:00 Acetaminophen (Tylenol Tab) 650 mg Q4H PRN PO PAIN AND OR ELEVATED TEMP Last administered on 05/07/16 00:18; Admin Dose 650 MG; Start 05/03/16 at 23:30 Darunavir (Prezista) 800 mg DAILY PO Last administered on 05/07/16 09:09; Admin Dose 800 MG; Start 05/04/16 at 09:00 Acetaminophen/ Hydrocodone Bitart ([place] (5/325)) 1 tab Q4H PRN PO PAIN; Start 05/03/16 at 23:30 Multivitamins Therapeutic (Theragran) 1 tab DAILY PO Last administered on 09:08; Admin Dose 1 TAB; Start 05/04/16 at 09:00 Nystatin (Nystatin Susp) 5 ml QID PO Last administered on 05/07/16 09:09; Admin Dose 5 ML; Start 05/04/16 at 09:00 Atovaquone (Mepron) 1,500 mg DAILY PO Last administered on 05/07/16 09:10; Admin Dose 1,500 MG; Start 05/04/16 at 09:00 Azithromycin (Zithromax) 1,200 mg We@09 PO Last administered on 05/04/16 08:16 ; Admin Dose 1,200 MG; Start 05/04/16 at 09:00 Elvitegravir/ Cobicis/Emtricit/ Tenof (Stribild Tablet) 1 each DAILY PO Last administered on 05/07/16 09:08; Admin Dose 1 EACH; Start 05/04/16 at 09:00 Ibuprofen (Motrin) 400 mg Q6H PRN PO PAIN OR TEMP ABOVE 38C Last administered on 05/04/16 12:07; Admin Dose 400 MG; Start 05/04/16 at 11:30 Famotidine (Pepcid) 20 mg DAILY PO Last administered on 05/07/16 09:09; Admin Dose 20 MG; Start 05/04/16 at 12:30 Cyanocobalamin 1000 mcg 1,000 mcg Q28D IM Last administered on 05/05/16 09:45 ; Admin Dose 1,000 MCG; Start 05/04/16 at 09:00 Norepinephrine (Levophed) 250 ml @ 1.875 mls/ hr TITRATE IV ; Start 05/04/16 at 18:30; Status Future Hold Hydrocortisone (Hydrocortisone 1% Cr) 1 applic ONCE PRN TOP ITCHING Last administered on 05/05/16 21:58; Admin Dose 1 APPLIC; Start 05/05/16 at 12:00; Stop 05/08/16 at 11:59 Loratadine 10 mg 10 mg DAILY PO Last administered on 05/07/16 09:09; Admin Dose 10 MG; Start 05/06/16 at 09:00 Imipenem/ Cilastatin Sodium 100 ml @ 100 mls/hr Q6 IVPB Last administered on 05:25; Admin Dose 100 MLS/HR; Start 05/05/16 at 18:00 Sodium Chloride (NS) 1,000 ml @ 75 mls/hr [id number] IV Last administered on 05/07 02:18; Admin Dose 75 MLS/HR; Start 05/05/16 at 23:30 Aspirin (Aspirin) 325 mg DAILY PO Last administered on 05/07/16 09:09; Admin Dose 325 MG; Start 05/07/16 at 09:00 Eye Lubricant (Artificial Tears Oph) 2 drop QID BOTH EYES Last administered on 05/07/16 09:10; Admin Dose 2 DROP; Start 05/06/16 at 17:00 Diltiazem HCl 120 mg 120 mg DAILY PO Last administered on 05/07/16 09:11; Admin Dose 120 MG; Start 05/07/16 at 09:00 Vancomycin HCl/ Sodium Chloride (Vancocin/NS) 250 ml @ 83.333 mls/ hr Q12H IVPB ; Start 05/07/16 at 18:00 MARIO CARTWRIGHT 18, 2017 12:00
[2016-05-07 12:17] LABS: EOSINOPHILS # 0.9 10^3/ul (0.0-0.5); LYMPHOCYTES # 0.4 10^3/ul (0.8-2.9); MONOCYTE # 0.2 10^3/ul (0.3-0.9); NEUTROPHIL # 0.5 10^3/ul (1.6-7.5)
[2016-05-07] MEDS ORDERED: IOHEXOL 300MG/ML 150 ML BTL ONE (15:38)
[2016-05-07] MEDS ORDERED: SOD CHLORIDE 0.9% 100 ML ONE (15:38)
--- NOTE | 2016-05-07 16:55 | RADRPT ---
PROCEDURE: CT Neck, Chest, Abdomen and Pelvis with contrast. CLINICAL INDICATION: Fever, AIDS. TECHNIQUE: CT scan of the neck, chest, abdomen, and pelvis with contrast was performed on a multi- detector high-resolution CT scanner. The patient was scanned following the uncomplicated intravenou s administration of 100 cc of Isovue 300 intravenous contrast. Coronal and sagittal reformatted isaiah ges were obtained from the axial source images. Images were reviewed on a high-resolution PACS works tation. The total exam CTDI equals 16 mGy and the total exam DLP equals 1537 mGy-cm. One or more of the following dose reduction techniques were used: Automated exposure control, Adjustment of the mA and/or kV according to patient size, and/or use of iterative reconstruction technique. COMPARISON: Correlation chest x-ray 05/03/2016, chest CT 04/18/2016 FINDINGS: CT neck: Mild paranasal sinus mucosal thickening without evidence of layering sinus fluid. Small bilateral c ervical lymph nodes are seen. There is a prominent cluster of left supraclavicular lymph nodes iden tified (series 3 image 51) measuring 5 mm short axis. The bilateral parotid and submandibular gland s are unremarkable. Thyroid gland is unremarkable. No significant airway narrowing. The pre-stylo id parapharyngeal space and retropharyngeal space are unremarkable. No rim-enhancing fluid collecti on identified. The major cervical arteries are patent. CT chest: Prominent left axillary lymph nodes are identified with the largest measuring 1 cm short axis. A few prominent mediastinal lymph nodes are unchanged. Small to moderate right and small left pleural effusions are new from prior. Bilateral lower lobe at electasis/infiltrates are identified. Right lower lobe 3 mm subpleural nodule. An additional right lower lobe 5 mm nodule is identified. Left lower lobe 8 mm subpleural nodule. No pulmonary mass identified. Aortic atherosclerosis. Small pericardial effusion. Degenerative changes of the spine. CT abdomen and pelvis: No suspicious hepatic mass identified. Status post cholecystectomy. The pancreas, spleen and adren als are unremarkable. No evidence of hydronephrosis. Nonobstructing 5 mm right lower renal pole st one. No significant ascites or evidence of pneumoperitoneum. No intra-abdominal rim enhancing flui d collection. No evidence of bowel obstruction. The appendix is normal in caliber without periappe ndiceal inflammatory stranding. A few upper abdominal retroperitoneal lymph nodes are seen without b ulky lymphadenopathy identified. Small corticated osseous fragment at the superior aspect of the lef t acetabulum may be due to prior trauma. Heterotopic ossification at the right ischial tuberosity m ay be due to prior trauma. Degenerative changes of the spine are seen. Prominent prostate gland. IMPRESSION: CT neck: Small bilateral cervical lymph nodes are seen. There is a mildly prominent cluster of small left supraclavicular lymph nodes. No neck abscess identified. CT chest: Mildly prominent left axillary lymph nodes are identified with the largest measuring 1 cm short axis . Small to moderate right and small left pleural effusions are new from prior. Bilateral lower lobe at electasis/infiltrates are identified. Sub centimeter bilateral lower lobe nodules. Recommend interval follow up in 6 months. Small pericardial effusion. CT abdomen and pelvis: No intra-abdominal abscess identified. No evidence of bulky lymphadenopathy. Nonobstructing 5 mm right lower renal pole stone. RPTAT: AA .Keith Garcia MD, MD Date Time Electronically viewed and signed by .Keith Garcia MD, on 05/07/2016 16:55 .T/
[2016-05-07 18:06] LABS: ADD UMIC NO; URINE BILIRUBIN (Dip) NEGATIVE (NEGATIVE); URINE BLOOD (Dip) NEGATIVE (NEGATIVE); URINE COLOR LT. YELLOW (YELLOW); URINE GLUCOSE (Dip) NEGATIVE (NEGATIVE); URINE KETONES (Dip) NEGATIVE (NEGATIVE); URINE LEUKOCYTE ESTERASE (Dip) NEGATIVE (NEGATIVE); URINE NITRITE (Dip) NEGATIVE (NEGATIVE); URINE TOTAL PROTEIN (Dip) NEGATIVE (NEGATIVE); URINE UROBILINOGEN (Dip) 0.2 E.U./dL (0.1-1.0)
[2016-05-07] MEDS: VANCOMYCIN 1.5 GM in SOD CHLORIDE 0.9% 250 ML IVPB SCH (18:38)
--- NOTE | 2016-05-07 18:58 | CONS ---
Date/Time of Note Date/Time of Note DATE: 05/07/16 TIME: 18:57 Consult Date/Type/Reason Admit Date/Time May 03, 2016 at 19:51 Initial Consult Date 05/06/16 Type of Consultation: ID Ordering Provider: NAKIA LUNA MD Objective Vital Signs Date Time Temp Pulse Resp B/P Pulse Ox O2 Delivery O2 Flow Rate FiO2 05/07/16 16:07 78 05/07/16 15:35 97.9 17 132/68 96 05/07/16 08:33 Nasal Cannula 2.0 05/05/16 19:30 27 Intake and Output 05/06/16 05/06/16 05/07/16 15:00 23:00 07:00 Intake Total 875 ml 1525 ml 1000 ml Output Total 1140 ml Balance 875 ml 385 ml 1000 ml Results/Medications Result Diagram: 05/07/16 0515 05/07/16 0515 Results 24 hrs Laboratory Tests Test 05/07/16 05:15 05/07/16 17:00 Anion Gap 14 Band Neutrophils % 10.0 H Blood Urea Nitrogen 14 Calcium Level 8.1 L Carbon Dioxide Level 21 Chloride Level 108 Creatinine 0.92 Eosinophils # 0.9 H Glucose Level 77 Hematocrit 30.5 L Hemoglobin 10.6 L Lymphocytes # 0.4 L Lymphocytes % 19.0 Mean Corpuscular Hemoglobin 29.0 Mean Corpuscular Hemoglobin Concent 34.8 Mean Corpuscular Volume 83.3 Mean Platelet Volume 9.7 Monocytes # 0.2 L Monocytes % 7.0 Neutrophils # 0.5 L Neutrophils % 22.0 L Platelet Count 153 Potassium Level 3.9 Promyelocytes # 0.0 Promyelocytes % 1.0 H Red Blood Count 3.66 L Red Cell Distribution Width 14.6 H Sodium Level 139 Vancomycin Level Trough 12.9 White Blood Count 2.3 L Urine Bilirubin NEGATIVE Urine Clarity CLEAR Urine Color LT. YELLOW Urine Glucose NEGATIVE Urine Hemoglobin NEGATIVE Urine Ketones NEGATIVE Urine Leukocyte Esterase NEGATIVE Urine Nitrite NEGATIVE Urine Specific [place] 1.025 Urine Total Protein NEGATIVE Urine Urobilinogen 0.2 E.U./dL Urine pH 6.0 Medications Current Medications Diphenhydramine HCl (Benadryl) 25 mg Q6H PRN IV ITCHING Last administered on t 22:26; Admin Dose 25 MG; Start 05/03/16 at 23:30 Morphine Sulfate (morphine) 2 mg Q4H PRN IV PAIN Last administered on 22:25; Admin Dose 2 MG; Start 05/03/16 at 23:30 Enoxaparin Sodium (Lovenox) 40 mg DAILY SC Last administered on 05/07/16 09:13 ; Admin Dose 40 MG; Start 05/04/16 at 09:00 Acetaminophen (Tylenol Tab) 650 mg Q4H PRN PO PAIN AND OR ELEVATED TEMP Last administered on 05/07/16 00:18; Admin Dose 650 MG; Start 05/03/16 at 23:30 Darunavir (Prezista) 800 mg DAILY PO Last administered on 05/07/16 09:09; Admin Dose 800 MG; Start 05/04/16 at 09:00 Acetaminophen/ Hydrocodone Bitart ([place] (5/325)) 1 tab Q4H PRN PO PAIN; Start 05/03/16 at 23:30 Multivitamins Therapeutic (Theragran) 1 tab DAILY PO Last administered on 09:08; Admin Dose 1 TAB; Start 05/04/16 at 09:00 Nystatin (Nystatin Susp) 5 ml QID PO Last administered on 05/07/16 17:15; Admin Dose 5 ML; Start 05/04/16 at 09:00 Azithromycin (Zithromax) 1,200 mg We@09 PO Last administered on 05/04/16 08:16 ; Admin Dose 1,200 MG; Start 05/04/16 at 09:00 Elvitegravir/ Cobicis/Emtricit/ Tenof (Stribild Tablet) 1 each DAILY PO Last administered on 05/07/16 09:08; Admin Dose 1 EACH; Start 05/04/16 at 09:00 Ibuprofen (Motrin) 400 mg Q6H PRN PO PAIN OR TEMP ABOVE 38C Last administered on 05/04/16 12:07; Admin Dose 400 MG; Start 05/04/16 at 11:30 Famotidine (Pepcid) 20 mg DAILY PO Last administered on 05/07/16 09:09; Admin Dose 20 MG; Start 05/04/16 at 12:30 Cyanocobalamin 1000 mcg 1,000 mcg Q28D IM Last administered on 05/05/16 09:45 ; Admin Dose 1,000 MCG; Start 05/04/16 at 09:00 Norepinephrine (Levophed) 250 ml @ 1.875 mls/ hr TITRATE IV ; Start 05/04/16 at 18:30; Status Future Hold Hydrocortisone (Hydrocortisone 1% Cr) 1 applic ONCE PRN TOP ITCHING Last administered on 05/05/16 21:58; Admin Dose 1 APPLIC; Start 05/05/16 at 12:00; Stop 05/08/16 at 11:59 Loratadine 10 mg 10 mg DAILY PO Last administered on 05/07/16 09:09; Admin Dose 10 MG; Start 05/06/16 at 09:00 Imipenem/ Cilastatin Sodium 100 ml @ 100 mls/hr Q6 IVPB Last administered on 17:15; Admin Dose 100 MLS/HR; Start 05/05/16 at 18:00 Sodium Chloride (NS) 1,000 ml @ 75 mls/hr [id number] IV Last administered on 05/07 02:18; Admin Dose 75 MLS/HR; Start 05/05/16 at 23:30 Aspirin (Aspirin) 325 mg DAILY PO Last administered on 05/07/16 09:09; Admin Dose 325 MG; Start 05/07/16 at 09:00 Eye Lubricant (Artificial Tears Oph) 2 drop QID BOTH EYES Last administered on 05/07/16 17:15; Admin Dose 2 DROP; Start 05/06/16 at 17:00 Diltiazem HCl 120 mg 120 mg DAILY PO Last administered on 05/07/16 09:11; Admin Dose 120 MG; Start 05/07/16 at 09:00 Vancomycin HCl/ Sodium Chloride (Vancocin/NS) 250 ml @ 83.333 mls/ hr Q12H IVPB Last administered on 05/07/16 18:38; Admin Dose 83.333 MLS/HR; Start at 18:00 Trimethoprim/ Sulfamethoxazole (Bactrim (Ds)) 1 tab SuTuTh@09 PO ; Start at 09:00 Assessment/Plan Chief Complaint/Hosp Course Patient iwth 66 year old M with AIDS recently started on meds, Esophagitis, HTN , who under went new onset Afib with RVR, now going at 150s but asymptomatic. His Cr went up from 0.9 to 1.5. No CP or SOB Problems: Additional Assessment/Plan Afib rate contorlled on cardizem DARYDS 2 is [address] abd neg ID on case MUSA REYES MD May 07, 2016 18:58
[2016-05-07] MEDS: DIPHENHYDRAMINE 50 MG INJ IV PRN (22:47)
[2016-05-07] MEDS: morphine 2 MG INJ IV PRN (22:47)
[2016-05-08] VITALS (13 sets, daily range): BP systolic 93–132; BP diastolic 62–78; PULSE 66–89; RESP 16–20
[2016-05-08] MEDS: IMIPENEM-CILAST 500 MG/NS 100 ML IVPB SCH ×4 (03:53→17:40)
[2016-05-08] MEDS: SOD CHLORIDE 0.9% 1,000 ML IV SCH ×2 (05:11→18:10)
[2016-05-08] MEDS: VANCOMYCIN 1.5 GM in SOD CHLORIDE 0.9% 250 ML IVPB SCH ×2 (06:54→18:24)
[2016-05-08] MEDS: ENOXAPARIN 40 MG/0.4 ML SYG SC SCH (08:19)
[2016-05-08] MEDS: ASPIRIN 325 MG TAB PO SCH (09:34)
[2016-05-08] MEDS: DARUNAVIR ETHANOLATE 800 MG TABLET PO SCH (09:34)
[2016-05-08] MEDS: LORATADINE 10 MG TAB PO SCH (09:35)
[2016-05-08] MEDS: TRIMETHOPRIM/SULFAMETHOX (DS) TAB PO SCH (09:35)
[2016-05-08] MEDS: MULTIVITAMINS THERAPEUTIC TAB PO SCH (09:35)
[2016-05-08] MEDS: FAMOTIDINE 20 MG TAB PO SCH (09:35)
[2016-05-08] MEDS: NYSTATIN SUSP 5 ML CUP PO SCH ×4 (09:35→21:00)
[2016-05-08] MEDS: ARTIFICIAL TEARS 15 ML OPH BOTH EYES SCH ×4 (09:36→21:00)
[2016-05-08] MEDS: DILTIAZEM 60 MG TAB PO SCH (09:36)
[2016-05-08] MEDS: ELVITEGR/COBICIST/EMTRIC/TENOF 1 EACH TABLET PO SCH (10:38)
--- NOTE | 2016-05-08 11:45 | PN ---
Date/Time of Note Date/Time of Note DATE: 05/08/16 TIME: 11:44 Assessment/Plan VTE Prophylaxis VTE Prophylaxis Intervention: other Lines/Catheters IV [facility] [place] [facility] Urinary Cath still in place: No Assessment/Plan Chief Complaint/Hosp Course 1. Neutropenic fever. Dr. Narayanan is following infectious disease consultation. Continue neutropenic precautions. Continue broad spectrum antibiotics. Follow up on urine and blood cultures. 2. AIDS. We will continue the patient on Stribild, darunavir and Mepron. Continue azithromycin. 3. Medical compliance. We will continue antipyretics and pain medication, Zofran p.r.n. for nausea. Problems: Subjective 24 Hr Interval Summary Free Text/Dictation Patient has no complaints Exam/Review of Systems Vital Signs Vitals Vital Signs Date Time Temp Pulse Resp B/P Pulse Ox O2 Delivery O2 Flow Rate FiO2 05/08/16 08:17 97.3 72 17 123/66 96 05/07/16 21:00 Nasal Cannula 2.0 05/05/16 19:30 27 Intake and Output 05/07/16 05/07/16 05/08/16 15:00 23:00 07:00 Intake Total 100 ml 2025 ml Output Total 2100 ml Balance 100 ml -75 ml Exam Constitutional: well developed Head: atraumatic, normocephalic Neck: supple Respiratory: clear to auscultation Cardiovascular: regular rate and rhythm Gastrointestinal: non-tender, soft Extremities: normal pulses Results Result Diagram: 05/07/16 0515 05/07/16 0515 Results 24 hrs Laboratory Tests Test 05/07/16 17:00 05/08/16 05:06 Urine Bilirubin NEGATIVE Urine Clarity CLEAR Urine Color LT. YELLOW Urine Glucose NEGATIVE Urine Hemoglobin NEGATIVE Urine Ketones NEGATIVE Urine Leukocyte Esterase NEGATIVE Urine Nitrite NEGATIVE Urine Specific [place] 1.025 Urine Total Protein NEGATIVE Urine Urobilinogen 0.2 E.U./dL Urine pH 6.0 Lactate Dehydrogenase 500 Medications Medications Current Medications Diphenhydramine HCl (Benadryl) 25 mg Q6H PRN IV ITCHING Last administered on 22:47; Admin Dose 25 MG; Start 05/03/16 at 23:30 Morphine Sulfate (morphine) 2 mg Q4H PRN IV PAIN Last administered on 22:47; Admin Dose 2 MG; Start 05/03/16 at 23:30 Enoxaparin Sodium (Lovenox) 40 mg DAILY SC Last administered on 05/08/16 08:19 ; Admin Dose 40 MG; Start 05/04/16 at 09:00 Acetaminophen (Tylenol Tab) 650 mg Q4H PRN PO PAIN AND OR ELEVATED TEMP Last administered on 05/07/16 00:18; Admin Dose 650 MG; Start 05/03/16 at 23:30 Darunavir (Prezista) 800 mg DAILY PO Last administered on 05/08/16 09:34; Admin Dose 800 MG; Start 05/04/16 at 09:00 Acetaminophen/ Hydrocodone Bitart ([place] (5/325)) 1 tab Q4H PRN PO PAIN; Start 05/03/16 at 23:30 Multivitamins Therapeutic (Theragran) 1 tab DAILY PO Last administered on 09:35; Admin Dose 1 TAB; Start 05/04/16 at 09:00 Nystatin (Nystatin Susp) 5 ml QID PO Last administered on 05/08/16 09:35; Admin Dose 5 ML; Start 05/04/16 at 09:00 Azithromycin (Zithromax) 1,200 mg We@09 PO Last administered on 05/04/16 08:16 ; Admin Dose 1,200 MG; Start 05/04/16 at 09:00 Elvitegravir/ Cobicis/Emtricit/ Tenof (Stribild Tablet) 1 each DAILY PO Last administered on 05/08/16 10:38; Admin Dose 1 EACH; Start 05/04/16 at 09:00 Ibuprofen (Motrin) 400 mg Q6H PRN PO PAIN OR TEMP ABOVE 38C Last administered on 05/04/16 12:07; Admin Dose 400 MG; Start 05/04/16 at 11:30 Famotidine (Pepcid) 20 mg DAILY PO Last administered on 05/08/16 09:35; Admin Dose 20 MG; Start 05/04/16 at 12:30 Cyanocobalamin 1000 mcg 1,000 mcg Q28D IM Last administered on 05/05/16 09:45 ; Admin Dose 1,000 MCG; Start 05/04/16 at 09:00 Norepinephrine (Levophed) 250 ml @ 1.875 mls/ hr TITRATE IV ; Start 05/04/16 at 18:30; Status Future Hold Hydrocortisone (Hydrocortisone 1% Cr) 1 applic ONCE PRN TOP ITCHING Last administered on 05/05/16 21:58; Admin Dose 1 APPLIC; Start 05/05/16 at 12:00; Stop 05/08/16 at 11:59 Loratadine 10 mg 10 mg DAILY PO Last administered on 05/08/16 09:35; Admin Dose 10 MG; Start 05/06/16 at 09:00 Imipenem/ Cilastatin Sodium 100 ml @ 100 mls/hr Q6 IVPB Last administered on 03:53; Admin Dose 100 MLS/HR; Start 05/05/16 at 18:00 Sodium Chloride (NS) 1,000 ml @ 75 mls/hr [id number] IV Last administered on 05/08 05:11; Admin Dose 75 MLS/HR; Start 05/05/16 at 23:30 Aspirin (Aspirin) 325 mg DAILY PO Last administered on 05/08/16 09:34; Admin Dose 325 MG; Start 05/07/16 at 09:00 Eye Lubricant (Artificial Tears Oph) 2 drop QID BOTH EYES Last administered on 05/08/16 09:36; Admin Dose 2 DROP; Start 05/06/16 at 17:00 Diltiazem HCl 120 mg 120 mg DAILY PO Last administered on 05/08/16 09:36; Admin Dose 120 MG; Start 05/07/16 at 09:00 Vancomycin HCl/ Sodium Chloride (Vancocin/NS) 250 ml @ 83.333 mls/ hr Q12H IVPB Last administered on 05/08/16 06:54; Admin Dose 83.333 MLS/HR; Start at 18:00 Trimethoprim/ Sulfamethoxazole (Bactrim (Ds)) 1 tab SuTuTh@09 PO Last administered on 05/08/16 09:35; Admin Dose 1 TAB; Start 05/08/16 at 09:00 MARIO CARTWRIGHT 19, 2017 11:45
--- NOTE | 2016-05-08 12:45 | CONS ---
YO CASTRO 05/08/16 1245: Date/Time of Note Date/Time of Note DATE: 05/08/16 TIME: 12:43 Assessment/Plan Assessment/Plan Additional Assessment/Plan - recurrent neutropenic fever, infectious process vs. immune reconstitution inflammatory response - advanced AIDS (CD<20, viral load 166,544 copies in 04/2016), was non-compliant with medications. Restarted on Stribild and darunavir on 04/23/2016 - neutropenia s/p BMBx, no e/o infections or malignancy at this time. CMV IHC negative, CMV PCR in serum was <200, cocci and crypto negative, QTB gold negative - h/o cough in 03/2016. CXR showed overinflated lungs, CT showed benign appearing sub-centimeter nodule seen at the bilateral lung bases - h/o E. coli in urine, likely colonization. completed treatment for this - LUE weakness and pain due to tear of rotator cuff muscles and bicep tendon anchor - L cervical and supraclavicular lymphadenopathy probably due to HIV infection - h/o thrush, resolved - hyperpigmented lesions on b/l LE x several months according to Pt - pruritis--resolved w/ changing atovaquone to Bactrim - eosinophilia recommendations - for recurrent fever: repeat blood cultures, urinalysis and urine culture, AFB blood culture, LDH, CT of neck/chest/abd/pel to r/o occult infection - check CD4 count and HIV viral load for surveillance - eosinophilia and pruritis: stool O&P ordered. Will change atovaquone to Bactrim three times a week for a possibility of atovaquone-related rash. Pt's CBC have improved and so I will re-try Bactrim - continue empiric vancomycin and imipenem - continue Stribild (tenofovir/emtricitabine/elvitaegravir/cobicistat) and darunavir 800mg (darunavir dosed at 800mg to simulate Prezcobix (darunavir 800mg /cobicistat 150mg) - continue azithromycin for MAC prophylaxis management d/w Pt and Dr Melara Consultation Date/Type/Reason Admit Date/Time May 03, 2016 at 19:51 Initial Consult Date 05/06/16 Type of Consultation: ID Referring Provider: NAKIA LUNA MD 24 HR Interval Summary Free Text/Dictation CT results noted. No pruritis today(since Abx change) Constitutional: improved, no complaints Exam/Review of Systems Vital Signs Vitals Vital Signs Date Time Temp Pulse Resp B/P Pulse Ox O2 Delivery O2 Flow Rate FiO2 05/08/16 12:15 88 05/08/16 11:43 97.6 17 93/64 95 05/07/16 21:00 Nasal Cannula 2.0 05/05/16 19:30 27 Intake and Output 05/07/16 05/07/16 05/08/16 15:00 23:00 07:00 Intake Total 100 ml 2025 ml Output Total 2100 ml Balance 100 ml -75 ml Exam Constitutional: alert, oriented, well developed Psych: no complaints Head: atraumatic, normocephalic Eyes: EOMI, nl conjunctiva ENMT: nl external ears & nose Neck: non-tender, supple Respiratory: clear to auscultation Cardiovascular: regular rate and rhythm Gastrointestinal: bowel sounds, non-tender, soft Neurological: nl speech Results Result Diagram: 05/07/1615 05/07/16 0515 Results 24 hrs Laboratory Tests Test 05/07/16 17:00 05/08/16 05:06 Urine Bilirubin NEGATIVE Urine Clarity CLEAR Urine Color LT. YELLOW Urine Glucose NEGATIVE Urine Hemoglobin NEGATIVE Urine Ketones NEGATIVE Urine Leukocyte Esterase NEGATIVE Urine Nitrite NEGATIVE Urine Specific [place] 1.025 Urine Total Protein NEGATIVE Urine Urobilinogen 0.2 E.U./dL Urine pH 6.0 Lactate Dehydrogenase 500 Medications Medications Current Medications Diphenhydramine HCl (Benadryl) 25 mg Q6H PRN IV ITCHING Last administered on 22:47; Admin Dose 25 MG; Start 05/03/16 at 23:30 Morphine Sulfate (morphine) 2 mg Q4H PRN IV PAIN Last administered on 22:47; Admin Dose 2 MG; Start 05/03/16 at 23:30 Enoxaparin Sodium (Lovenox) 40 mg DAILY SC Last administered on 05/08/16 08:19 ; Admin Dose 40 MG; Start 05/04/16 at 09:00 Acetaminophen (Tylenol Tab) 650 mg Q4H PRN PO PAIN AND OR ELEVATED TEMP Last administered on 05/07/16 00:18; Admin Dose 650 MG; Start 05/03/16 at 23:30 Darunavir (Prezista) 800 mg DAILY PO Last administered on 05/08/16 09:34; Admin Dose 800 MG; Start 05/04/16 at 09:00 Acetaminophen/ Hydrocodone Bitart ([place] (5/325)) 1 tab Q4H PRN PO PAIN; Start 05/03/16 at 23:30 Multivitamins Therapeutic (Theragran) 1 tab DAILY PO Last administered on 09:35; Admin Dose 1 TAB; Start 05/04/16 at 09:00 Nystatin (Nystatin Susp) 5 ml QID PO Last administered on 05/08/16 09:35; Admin Dose 5 ML; Start 05/04/16 at 09:00 Azithromycin (Zithromax) 1,200 mg We@09 PO Last administered on 05/04/16 08:16 ; Admin Dose 1,200 MG; Start 05/04/16 at 09:00 Elvitegravir/ Cobicis/Emtricit/ Tenof (Stribild Tablet) 1 each DAILY PO Last administered on 05/08/16 10:38; Admin Dose 1 EACH; Start 05/04/16 at 09:00 Ibuprofen (Motrin) 400 mg Q6H PRN PO PAIN OR TEMP ABOVE 38C Last administered on 05/04/16 12:07; Admin Dose 400 MG; Start 05/04/16 at 11:30 Famotidine (Pepcid) 20 mg DAILY PO Last administered on 05/08/16 09:35; Admin Dose 20 MG; Start 05/04/16 at 12:30 Cyanocobalamin 1000 mcg 1,000 mcg Q28D IM Last administered on 05/05/16 09:45 ; Admin Dose 1,000 MCG; Start 05/04/16 at 09:00 Norepinephrine (Levophed) 250 ml @ 1.875 mls/ hr TITRATE IV ; Start 05/04/16 at 18:30; Status Future Hold Loratadine 10 mg 10 mg DAILY PO Last administered on 05/08/16 09:35; Admin Dose 10 MG; Start 05/06/16 at 09:00 Imipenem/ Cilastatin Sodium 100 ml @ 100 mls/hr Q6 IVPB Last administered on 03:53; Admin Dose 100 MLS/HR; Start 05/05/16 at 18:00 Sodium Chloride (NS) 1,000 ml @ 75 mls/hr [id number] IV Last administered on 05/08 05:11; Admin Dose 75 MLS/HR; Start 05/05/16 at 23:30 Aspirin (Aspirin) 325 mg DAILY PO Last administered on 05/08/16 09:34; Admin Dose 325 MG; Start 05/07/16 at 09:00 Eye Lubricant (Artificial Tears Oph) 2 drop QID BOTH EYES Last administered on 05/08/16 09:36; Admin Dose 2 DROP; Start 05/06/16 at 17:00 Diltiazem HCl 120 mg 120 mg DAILY PO Last administered on 05/08/16 09:36; Admin Dose 120 MG; Start 05/07/16 at 09:00 Vancomycin HCl/ Sodium Chloride (Vancocin/NS) 250 ml @ 83.333 mls/ hr Q12H IVPB Last administered on 05/08/16 06:54; Admin Dose 83.333 MLS/HR; Start at 18:00 Trimethoprim/ Sulfamethoxazole (Bactrim (Ds)) 1 tab SuTuTh@09 PO Last administered on 05/08/16 09:35; Admin Dose 1 TAB; Start 05/08/16 at 09:00 JACK MELARA M.D. 05/09/16 0107: Assessment/Plan Assessment/Plan Chief Complaint/Hosp Course I discussed the management with YADIEL Castro and agree with above Problems: Exam/Review of Systems Results Result Diagram: 05/07/16 0515 05/07/16 0515 YO CASTRO May 08, 2016 12:45 JACK MELARA M.D. May 09, 2016 01:07
--- NOTE | 2016-05-08 18:05 | CONS ---
Date/Time of Note Date/Time of Note DATE: 05/08/16 TIME: 18:05 Consult Date/Type/Reason Admit Date/Time May 03, 2016 at 19:51 Initial Consult Date 05/06/16 Type of Consultation: ID Ordering Provider: NAKIA LUNA MD Objective Vital Signs Date Time Temp Pulse Resp B/P Pulse Ox O2 Delivery O2 Flow Rate FiO2 05/08/16 16:47 66 05/08/16 16:12 97.8 17 104/70 97 05/07/16 21:00 Nasal Cannula 2.0 05/05/16 19:30 27 Intake and Output 05/07/16 05/07/16 05/08/16 15:00 23:00 07:00 Intake Total 100 ml 2025 ml Output Total 2100 ml Balance 100 ml -75 ml Results/Medications Result Diagram: 05/07/1615 05/07/16 0515 Results 24 hrs Laboratory Tests Test 05/08/16 05:06 Lactate Dehydrogenase 500 Medications Current Medications Diphenhydramine HCl (Benadryl) 25 mg Q6H PRN IV ITCHING Last administered on 22:47; Admin Dose 25 MG; Start 05/03/16 at 23:30 Morphine Sulfate (morphine) 2 mg Q4H PRN IV PAIN Last administered on 22:47; Admin Dose 2 MG; Start 05/03/16 at 23:30 Enoxaparin Sodium (Lovenox) 40 mg DAILY SC Last administered on 05/08/16 08:19 ; Admin Dose 40 MG; Start 05/04/16 at 09:00 Acetaminophen (Tylenol Tab) 650 mg Q4H PRN PO PAIN AND OR ELEVATED TEMP Last administered on 05/07/16 00:18; Admin Dose 650 MG; Start 05/03/16 at 23:30 Darunavir (Prezista) 800 mg DAILY PO Last administered on 05/08/16 09:34; Admin Dose 800 MG; Start 05/04/16 at 09:00 Acetaminophen/ Hydrocodone Bitart ([place] (5/325)) 1 tab Q4H PRN PO PAIN; Start 05/03/16 at 23:30 Multivitamins Therapeutic (Theragran) 1 tab DAILY PO Last administered on 09:35; Admin Dose 1 TAB; Start 05/04/16 at 09:00 Nystatin (Nystatin Susp) 5 ml QID PO Last administered on 05/08/16 17:39; Admin Dose 5 ML; Start 05/04/16 at 09:00 Azithromycin (Zithromax) 1,200 mg We@09 PO Last administered on 05/04/16 08:16 ; Admin Dose 1,200 MG; Start 05/04/16 at 09:00 Elvitegravir/ Cobicis/Emtricit/ Tenof (Stribild Tablet) 1 each DAILY PO Last administered on 05/08/16 10:38; Admin Dose 1 EACH; Start 05/04/16 at 09:00 Ibuprofen (Motrin) 400 mg Q6H PRN PO PAIN OR TEMP ABOVE 38C Last administered on 05/04/16 12:07; Admin Dose 400 MG; Start 05/04/16 at 11:30 Famotidine (Pepcid) 20 mg DAILY PO Last administered on 05/08/16 09:35; Admin Dose 20 MG; Start 05/04/16 at 12:30 Cyanocobalamin 1000 mcg 1,000 mcg Q28D IM Last administered on 05/05/16 09:45 ; Admin Dose 1,000 MCG; Start 05/04/16 at 09:00 Norepinephrine (Levophed) 250 ml @ 1.875 mls/ hr TITRATE IV ; Start 05/04/16 at 18:30; Status Future Hold Loratadine 10 mg 10 mg DAILY PO Last administered on 05/08/16 09:35; Admin Dose 10 MG; Start 05/06/16 at 09:00 Imipenem/ Cilastatin Sodium 100 ml @ 100 mls/hr Q6 IVPB Last administered on 17:40; Admin Dose 100 MLS/HR; Start 05/05/16 at 18:00 Sodium Chloride (NS) 1,000 ml @ 75 mls/hr [id number] IV Last administered on 05/08 05:11; Admin Dose 75 MLS/HR; Start 05/05/16 at 23:30 Aspirin (Aspirin) 325 mg DAILY PO Last administered on 05/08/16 09:34; Admin Dose 325 MG; Start 05/07/16 at 09:00 Eye Lubricant (Artificial Tears Oph) 2 drop QID BOTH EYES Last administered on 05/08/16 17:40; Admin Dose 2 DROP; Start 05/06/16 at 17:00 Diltiazem HCl 120 mg 120 mg DAILY PO Last administered on 05/08/16 09:36; Admin Dose 120 MG; Start 05/07/16 at 09:00 Vancomycin HCl/ Sodium Chloride (Vancocin/NS) 250 ml @ 83.333 mls/ hr Q12H IVPB Last administered on 05/08/16 06:54; Admin Dose 83.333 MLS/HR; Start at 18:00 Trimethoprim/ Sulfamethoxazole (Bactrim (Ds)) 1 tab SuTuTh@09 PO Last administered on 05/08/16 09:35; Admin Dose 1 TAB; Start 05/08/16 at 09:00 Miscellaneous Information (*Rx Drug Level Order Reminder*) VANCOMYCIN TROUGH AT 0500 ONCE ONCE XX ; Start 05/09/16 at 05:00; Stop 05/09/16 at 05:01 Assessment/Plan Chief Complaint/Hosp Course Patient iwth 66 year old M with AIDS recently started on meds, Esophagitis, HTN , who under went new onset Afib with RVR, now going at 150s but asymptomatic. His Cr went up from 0.9 to 1.5. No CP or SOB Problems: Additional Assessment/Plan Stable Afib med mx MUSA REYES MD May 08, 2016 18:05
[2016-05-08] MEDS: DIPHENHYDRAMINE 50 MG INJ IV PRN (22:37)
[2016-05-08] MEDS: morphine 2 MG INJ IV PRN (22:37)
[2016-05-08] MEDS: ACETAMINOPHEN 325 MG TAB PO PRN (23:56)
[2016-05-09] VITALS (11 sets, daily range): BP systolic 98–177; BP diastolic 64–89; PULSE 79–98; RESP 16–18
[2016-05-09] MEDS: IMIPENEM-CILAST 500 MG/NS 100 ML IVPB SCH ×4 (00:37→18:22)
[2016-05-09 05:53] LABS: ADD SCAN DIFF NO
[2016-05-09 05:55] LABS: ABNORMAL IP MESSAGE 1; HEMATOCRIT 33.3 % (42.0-52.0); HEMOGLOBIN 11.8 g/dl (14.0-18.0); MEAN CORPUSCULAR HEMOGLOBIN 29.4 pg (29.0-33.0); MEAN CORPUSCULAR HGB CONC 35.4 g/dl (32.0-37.0); MEAN PLATELET VOLUME 9.1 fl (7.4-10.4); PLATELET COUNT 189 10^3/UL (140-415); RED BLOOD COUNT 4.01 10^6/ul (4.70-6.10); RED CELL DISTRIBUTION WIDTH 14.4 % (11.5-14.5); WHITE BLOOD COUNT 3.7 10^3/ul (4.8-10.8)
[2016-05-09 06:07] LABS: ALBUMIN 2.7 g/dl (3.3-4.9)
[2016-05-09 06:08] LABS: POTASSIUM 3.4 mmol/L (3.5-5.1)
[2016-05-09 06:10] LABS: ALBUMIN/GLOBULIN RATIO 0.75; BILIRUBIN,INDIRECT 0.2 mg/dl (0-1.1); BILIRUBIN,TOTAL 0.2 mg/dl (0.2-1.3); CREATININE 0.81 mg/dl (0.61-1.24); TOTAL PROTEIN 6.3 g/dl (6.1-8.1)
[2016-05-09 06:11] LABS: CALCIUM 8.2 mg/dl (8.4-10.2)
[2016-05-09] MEDS: VANCOMYCIN 1.5 GM in SOD CHLORIDE 0.9% 250 ML IVPB SCH ×2 (07:04→18:34)
[2016-05-09] MEDS: SOD CHLORIDE 0.9% 1,000 ML IV SCH ×2 (07:06→18:34)
[2016-05-09] MEDS: DILTIAZEM 60 MG TAB PO SCH (09:45)
[2016-05-09] MEDS: ASPIRIN 325 MG TAB PO SCH (09:45)
[2016-05-09] MEDS: DARUNAVIR ETHANOLATE 800 MG TABLET PO SCH (09:45)
[2016-05-09] MEDS: LORATADINE 10 MG TAB PO SCH (09:45)
[2016-05-09] MEDS: FAMOTIDINE 20 MG TAB PO SCH (09:45)
[2016-05-09] MEDS: MULTIVITAMINS THERAPEUTIC TAB PO SCH (09:45)
[2016-05-09] MEDS: NYSTATIN SUSP 5 ML CUP PO SCH ×4 (09:45→21:00)
[2016-05-09] MEDS: ENOXAPARIN 40 MG/0.4 ML SYG SC SCH (09:46)
[2016-05-09] MEDS: ARTIFICIAL TEARS 15 ML OPH BOTH EYES SCH ×4 (09:46→22:20)
[2016-05-09 11:55] LABS: EOSINOPHILS # 1.5 10^3/ul (0.0-0.5); LYMPHOCYTES # 0.8 10^3/ul (0.8-2.9); MONOCYTE # 0.8 10^3/ul (0.3-0.9); NEUTROPHIL # 0.5 10^3/ul (1.6-7.5)
[2016-05-09] MEDS: ELVITEGR/COBICIST/EMTRIC/TENOF 1 EACH TABLET PO SCH (12:31)
--- NOTE | 2016-05-09 13:57 | CONS ---
Date/Time of Note Date/Time of Note DATE: 05/09/16 TIME: 13:56 Assessment/Plan Assessment/Plan Chief Complaint/Hosp Course assessment/impression: - GNR bacteremia 05/03/16 - recurrent neutropenic fever, infectious process vs. immune reconstitution inflammatory response - advanced AIDS (CD<20, viral load 166,544 copies in 04/2016), was non-compliant with medications. Restarted on Stribild and darunavir on 04/23/2016 - neutropenia s/p BMBx, no e/o infections or malignancy at this time. CMV IHC negative, CMV PCR in serum was <200, cocci and crypto negative, QTB gold negative - h/o cough in 03/2016. CXR showed overinflated lungs, CT showed benign appearing sub-centimeter nodule seen at the bilateral lung bases - h/o E. coli in urine, likely colonization. completed treatment for this - LUE weakness and pain due to tear of rotator cuff muscles and bicep tendon anchor - L cervical and supraclavicular lymphadenopathy probably due to HIV infection - h/o thrush, resolved - hyperpigmented lesions on b/l LE x several months according to Pt - pruritis - improving - eosinophilia - Hx prostatitis recommendations: - Check procalcitonin, PSA, Beta D glucan. - Start empiric Caspofungin - F/u final C&S of GNR bacteremia; I spoke to Lu Mcintosh who said results should be available tomorrow. - F/u crowley cultures (repeat blood and urine cultures 05/07/16 negative to date, UA negative), AFB blood culture, LDH. CT of neck/chest/abd/pel shows no occult infection. - F/u CD4 count and HIV viral load for surveillance (pending). - eosinophilia and pruritis: F/u stool O&P (pending). - Continue Bactrim three times a week for a possibility of atovaquone-related rash - Continue empiric vancomycin and imipenem - Continue Stribild (tenofovir/emtricitabine/elvitaegravir/cobicistat) and darunavir 800mg (darunavir dosed at 800mg to simulate Prezcobix (darunavir 800mg /cobicistat 150mg) - Continue azithromycin for MAC prophylaxis - Consider WBC scan - Consider Psych consult; Mgmt d/w HORTENSIA Walker - Above d/w Dr. Narayanan Problems: Consultation Date/Type/Reason Admit Date/Time May 03, 2016 at 19:51 Initial Consult Date 05/06/16 Type of Consultation: Infectious Disease Referring Provider: NAKIA LUNA MD 24 HR Interval Summary Free Text/Dictation Tmax 101.5 last night. Pt reports had nausea after taking meds last night but no vomiting. Pruritus has improved. Denies abd pain, dysuria, diarrhea. ROS otherwise negative except for same LUE focal weakness. Pt was non compliant with filling up prescriptions after recent DC from [facility] per d/w HORTENSIA Walker. Pt reported to THOMAS Bolton, "I've been taking a lot of pills for over 20 years. I' m tired of pills. I would rather ." Exam/Review of Systems Vital Signs Vitals Vital Signs Date Time Temp Pulse Resp B/P Pulse Ox O2 Delivery O2 Flow Rate FiO2 05/09/16 12:00 94 05/09/16 11:17 98.4 18 98/64 95 05/07/16 21:00 Nasal Cannula 2.0 05/05/16 19:30 27 Intake and Output 05/08/16 05/08/16 05/09/16 15:00 23:00 07:00 Intake Total 600 ml 1900 ml 1140 ml Output Total 750 ml 1650 ml Balance -150 ml 1900 ml -510 ml Exam Constitutional: alert, oriented, well developed Head: atraumatic, normocephalic ENMT: mucosa pink and moist, other (skin tear noted on lower lip with scant blood) Neck: supple, No jvd Respiratory: clear to auscultation, normal air movement Cardiovascular: nl pulses, regular rate and rhythm Gastrointestinal: non-tender, soft Musculoskeletal: nl gait and stance Extremities: normal pulses, No clubbing, No cyanosis, No edema Neurological: focal weakness (LUE), nl mental status, nl speech Skin: nl turgor, rash or lesions (erythroderma of the face) Results Result Diagram: 05/09/16 0530 05/09/16 0530 Results 24 hrs Laboratory Tests Test 05/09/16 05:30 Alanine Aminotransferase (ALT/SGPT) 30 Albumin 2.7 L Albumin/Globulin Ratio 0.75 Alkaline Phosphatase 87 Anion Gap 13 Aspartate Amino Transf (AST/SGOT) 21 Basophils # 0.0 Basophils % 1.0 Blood Urea Nitrogen 11 Calcium Level 8.2 L Carbon Dioxide Level 23 Chloride Level 106 Creatinine 0.81 Direct Bilirubin 0.00 Eosinophils # 1.5 H Eosinophils % 40.0 H Globulin 3.60 H Glucose Level 81 Hematocrit 33.3 L Hemoglobin 11.8 L Indirect Bilirubin 0.2 Lymphocytes # 0.8 Lymphocytes % 22.0 Mean Corpuscular Hemoglobin 29.4 Mean Corpuscular Hemoglobin Concent 35.4 Mean Corpuscular Volume 83.0 Mean Platelet Volume 9.1 Metamyelocytes # 0.1 Metamyelocytes % 2.0 H Monocytes # 0.8 Monocytes % 22.0 H Neutrophils # 0.5 L Neutrophils % 13.0 L Platelet Count 189 # Potassium Level 3.4 L Red Blood Count 4.01 L Red Cell Distribution Width 14.4 Sodium Level 139 Total Bilirubin 0.2 Total Protein 6.3 Vancomycin Level Trough 14.6 White Blood Count 3.7 #L Medications Medications Current Medications Diphenhydramine HCl (Benadryl) 25 mg Q6H PRN IV ITCHING Last administered on 22:37; Admin Dose 25 MG; Start 05/03/16 at 23:30 Morphine Sulfate (morphine) 2 mg Q4H PRN IV PAIN Last administered on 22:37; Admin Dose 2 MG; Start 05/03/16 at 23:30 Enoxaparin Sodium (Lovenox) 40 mg DAILY SC Last administered on 05/09/16 09:46 ; Admin Dose 40 MG; Start 05/04/16 at 09:00 Acetaminophen (Tylenol Tab) 650 mg Q4H PRN PO PAIN AND OR ELEVATED TEMP Last administered on 05/08/16 23:56; Admin Dose 650 MG; Start 05/03/16 at 23:30 Darunavir (Prezista) 800 mg DAILY PO Last administered on 05/09/16 09:45; Admin Dose 800 MG; Start 05/04/16 at 09:00 Acetaminophen/ Hydrocodone Bitart ([place] (5/325)) 1 tab Q4H PRN PO PAIN; Start 05/03/16 at 23:30 Multivitamins Therapeutic (Theragran) 1 tab DAILY PO Last administered on 09:45; Admin Dose 1 TAB; Start 05/04/16 at 09:00 Nystatin (Nystatin Susp) 5 ml QID PO Last administered on 05/09/16 09:45; Admin Dose 5 ML; Start 05/04/16 at 09:00 Azithromycin (Zithromax) 1,200 mg We@09 PO Last administered on 05/04/16 08:16 ; Admin Dose 1,200 MG; Start 05/04/16 at 09:00 Elvitegravir/ Cobicis/Emtricit/ Tenof (Stribild Tablet) 1 each DAILY PO Last administered on 05/09/16 12:31; Admin Dose 1 EACH; Start 05/04/16 at 09:00 Ibuprofen (Motrin) 400 mg Q6H PRN PO PAIN OR TEMP ABOVE 38C Last administered on 05/04/16 12:07; Admin Dose 400 MG; Start 05/04/16 at 11:30 Famotidine (Pepcid) 20 mg DAILY PO Last administered on 05/09/16 09:45; Admin Dose 20 MG; Start 05/04/16 at 12:30 Cyanocobalamin 1000 mcg 1,000 mcg Q28D IM Last administered on 05/05/16 09:45 ; Admin Dose 1,000 MCG; Start 05/04/16 at 09:00 Norepinephrine (Levophed) 250 ml @ 1.875 mls/ hr TITRATE IV ; Start 05/04/16 at 18:30; Status Future Hold Loratadine 10 mg 10 mg DAILY PO Last administered on 05/09/16 09:45; Admin Dose 10 MG; Start 05/06/16 at 09:00 Imipenem/ Cilastatin Sodium 100 ml @ 100 mls/hr Q6 IVPB Last administered on 12:32; Admin Dose 100 MLS/HR; Start 05/05/16 at 18:00 Sodium Chloride (NS) 1,000 ml @ 75 mls/hr [id number] IV Last administered on 05/09 07:06; Admin Dose 75 MLS/HR; Start 05/05/16 at 23:30 Aspirin (Aspirin) 325 mg DAILY PO Last administered on 05/09/16 09:45; Admin Dose 325 MG; Start 05/07/16 at 09:00 Eye Lubricant (Artificial Tears Oph) 2 drop QID BOTH EYES Last administered on 05/09/16 09:46; Admin Dose 2 DROP; Start 05/06/16 at 17:00 Diltiazem HCl 120 mg 120 mg DAILY PO Last administered on 05/09/16 09:45; Admin Dose 120 MG; Start 05/07/16 at 09:00 Vancomycin HCl/ Sodium Chloride (Vancocin/NS) 250 ml @ 83.333 mls/ hr Q12H IVPB Last administered on 05/09/16 07:04; Admin Dose 83.333 MLS/HR; Start at 18:00 Trimethoprim/ Sulfamethoxazole (Bactrim (Ds)) 1 tab SuTuTh@09 PO Last administered on 05/08/16 09:35; Admin Dose 1 TAB; Start 05/08/16 at 09:00 AVERY SHAHID NP May 09, 2016 13:57
[2016-05-09 14:57] LABS: LYMPHOCYTE - CD4/CD8 RATIO 0.15 (0.86-5.00)
--- NOTE | 2016-05-09 18:32 | PN ---
Date/Time of Note Date/Time of Note DATE: 05/09/16 TIME: 18:28 Assessment/Plan VTE Prophylaxis VTE Prophylaxis Intervention: SCD's Lines/Catheters [facility] Urinary Cath still in place: No Assessment/Plan Chief Complaint/Hosp Course ASSESSMENT AND PLAN: -Sepsis with gram-negative rods bacteremia. Dr. Narayanan is following infectious disease consultation. Continue antibiotics per ID. -Neutropenic fever. Continue neutropenic precautions. Continue broad spectrum antibiotics. Follow up on urine and blood cultures. -Advanced AIDS. Continue the patient on Stribild, darunavir and Mepron. Continue azithromycin. - Afib with RVR, Dr. Silver is following in cardiology consultation. Continue Cardizem. - Medical non- compliance. Sequential compression devices for deep venous thrombosis prophylaxis and Pepcid for peptic ulcer disease prophylaxis. Further recommendations based on clinical course. Plan of care discussed with Dr. Walden. Problems: Subjective 24 Hr Interval Summary Free Text/Dictation Patient spiked fever last night, currently is afebrile, denies any nausea vomiting. Exam/Review of Systems Vital Signs Vitals Vital Signs Date Time Temp Pulse Resp B/P Pulse Ox O2 Delivery O2 Flow Rate FiO2 05/09/16 16:00 79 05/09/16 15:21 98.7 18 111/70 97 05/07/16 21:00 Nasal Cannula 2.0 05/05/16 19:30 27 Intake and Output 05/08/16 05/08/16 05/09/16 15:00 23:00 07:00 Intake Total 600 ml 1900 ml 1140 ml Output Total 750 ml 1650 ml Balance -150 ml 1900 ml -510 ml Exam GENERAL: Well-developed, well-nourished male currently is tachycardic, febrile and has chills. Awake, alert and oriented x2. HEENT: Head is atraumatic, normocephalic. Pupils equal, round, reactive to light and accommodation. Oral mucosa is pink and moist. NECK: Supple, no cervical lymphadenopathy. No thyromegaly. LUNGS: Slightly diminished at the bases. Clear in the upper lobes. There are no wheezes, rhonchi noted. CARDIOVASCULAR: The patient is tachycardic. Normal S1, S2. No murmurs, gallops, clicks, rubs noted. ABDOMEN: Round, soft, nondistended, nontender. Bowel sounds present. No guarding, no rebound tenderness. EXTREMITIES: There is no edema, clubbing, cyanosis. Pulses equal bilaterally 2 +. SKIN: The patient has diffuse erythema all over his body. There is no maculopapular rash, no petechiae. No ecchymosis noted. NEUROLOGIC: Patient is awake, alert and oriented. Results Result Diagram: 05/09/16 0530 05/09/16 0530 Results 24 hrs Laboratory Tests Test 05/09/16 05:30 Alanine Aminotransferase (ALT/SGPT) 30 Albumin 2.7 L Albumin/Globulin Ratio 0.75 Alkaline Phosphatase 87 Anion Gap 13 Aspartate Amino Transf (AST/SGOT) 21 Basophils # 0.0 Basophils % 1.0 Blood Urea Nitrogen 11 Calcium Level 8.2 L Carbon Dioxide Level 23 Chloride Level 106 Creatinine 0.81 Direct Bilirubin 0.00 Eosinophils # 1.5 H Eosinophils % 40.0 H Globulin 3.60 H Glucose Level 81 Hematocrit 33.3 L Hemoglobin 11.8 L Indirect Bilirubin 0.2 Lymphocytes # 0.8 Lymphocytes % 22.0 Mean Corpuscular Hemoglobin 29.4 Mean Corpuscular Hemoglobin Concent 35.4 Mean Corpuscular Volume 83.0 Mean Platelet Volume 9.1 Metamyelocytes # 0.1 Metamyelocytes % 2.0 H Monocytes # 0.8 Monocytes % 22.0 H Neutrophils # 0.5 L Neutrophils % 13.0 L Platelet Count 189 # Potassium Level 3.4 L Red Blood Count 4.01 L Red Cell Distribution Width 14.4 Sodium Level 139 Total Bilirubin 0.2 Total Protein 6.3 Vancomycin Level Trough 14.6 White Blood Count 3.7 #L Medications Medications Current Medications Diphenhydramine HCl (Benadryl) 25 mg Q6H PRN IV ITCHING Last administered on 22:37; Admin Dose 25 MG; Start 05/03/16 at 23:30 Morphine Sulfate (morphine) 2 mg Q4H PRN IV PAIN Last administered on 22:37; Admin Dose 2 MG; Start 05/03/16 at 23:30 Enoxaparin Sodium (Lovenox) 40 mg DAILY SC Last administered on 05/09/16 09:46 ; Admin Dose 40 MG; Start 05/04/16 at 09:00 Acetaminophen (Tylenol Tab) 650 mg Q4H PRN PO PAIN AND OR ELEVATED TEMP Last administered on 05/08/16 23:56; Admin Dose 650 MG; Start 05/03/16 at 23:30 Darunavir (Prezista) 800 mg DAILY PO Last administered on 05/09/16 09:45; Admin Dose 800 MG; Start 05/04/16 at 09:00 Acetaminophen/ Hydrocodone Bitart ([place] (5/325)) 1 tab Q4H PRN PO PAIN; Start 05/03/16 at 23:30 Multivitamins Therapeutic (Theragran) 1 tab DAILY PO Last administered on 09:45; Admin Dose 1 TAB; Start 05/04/16 at 09:00 Nystatin (Nystatin Susp) 5 ml QID PO Last administered on 05/09/16 09:45; Admin Dose 5 ML; Start 05/04/16 at 09:00 Azithromycin (Zithromax) 1,200 mg We@09 PO Last administered on 05/04/16 08:16 ; Admin Dose 1,200 MG; Start 05/04/16 at 09:00 Elvitegravir/ Cobicis/Emtricit/ Tenof (Stribild Tablet) 1 each DAILY PO Last administered on 05/09/16 12:31; Admin Dose 1 EACH; Start 05/04/16 at 09:00 Ibuprofen (Motrin) 400 mg Q6H PRN PO PAIN OR TEMP ABOVE 38C Last administered on 05/04/16 12:07; Admin Dose 400 MG; Start 05/04/16 at 11:30 Famotidine (Pepcid) 20 mg DAILY PO Last administered on 05/09/16 09:45; Admin Dose 20 MG; Start 05/04/16 at 12:30 Cyanocobalamin 1000 mcg 1,000 mcg Q28D IM Last administered on 05/05/16 09:45 ; Admin Dose 1,000 MCG; Start 05/04/16 at 09:00 Norepinephrine (Levophed) 250 ml @ 1.875 mls/ hr TITRATE IV ; Start 05/04/16 at 18:30; Status Future Hold Loratadine 10 mg 10 mg DAILY PO Last administered on 05/09/16 09:45; Admin Dose 10 MG; Start 05/06/16 at 09:00 Imipenem/ Cilastatin Sodium 100 ml @ 100 mls/hr Q6 IVPB Last administered on 18:22; Admin Dose 100 MLS/HR; Start 05/05/16 at 18:00 Sodium Chloride (NS) 1,000 ml @ 75 mls/hr [id number] IV Last administered on 05/09 07:06; Admin Dose 75 MLS/HR; Start 05/05/16 at 23:30 Aspirin (Aspirin) 325 mg DAILY PO Last administered on 05/09/16 09:45; Admin Dose 325 MG; Start 05/07/16 at 09:00 Eye Lubricant (Artificial Tears Oph) 2 drop QID BOTH EYES Last administered on 05/09/16 09:46; Admin Dose 2 DROP; Start 05/06/16 at 17:00 Diltiazem HCl 120 mg 120 mg DAILY PO Last administered on 05/09/16 09:45; Admin Dose 120 MG; Start 05/07/16 at 09:00 Vancomycin HCl/ Sodium Chloride (Vancocin/NS) 250 ml @ 83.333 mls/ hr Q12H IVPB Last administered on 05/09/16 07:04; Admin Dose 83.333 MLS/HR; Start at 18:00 Trimethoprim/ Sulfamethoxazole 1 tab 1 tab SuTuTh@09 PO Last administered on 09:35; Admin Dose 1 TAB; Start 05/08/16 at 09:00 Caspofungin/ Sodium Chloride (Cancidas/NS) 250 ml @ 250 mls/hr Q24H IVPB ; Start 05/09/16 at 16:00 AAKASH MITCHELL May 09, 2016 18:32
[2016-05-09] MEDS: morphine 2 MG INJ IV PRN (18:42)
[2016-05-09] MEDS: ACETAMINOPHEN 325 MG TAB PO PRN (19:44)
[2016-05-09] MEDS: CASPOFUNGIN 50 MG in SOD CHLORIDE 0.9% 250 ML IVPB SCH (22:21)
[2016-05-10] VITALS (11 sets, daily range): BP systolic 121–146; BP diastolic 66–75; PULSE 93–169; RESP 18–20
[2016-05-10] MEDS: IMIPENEM-CILAST 500 MG/NS 100 ML IVPB SCH ×4 (00:08→18:19)
[2016-05-10] MEDS: DIPHENHYDRAMINE 50 MG INJ IV PRN ×2 (00:17→20:31)
[2016-05-10] MEDS: morphine 2 MG INJ IV PRN ×5 (00:17→22:37)
[2016-05-10] MEDS: HYDROCODONE/APAP (5/325) TAB PO PRN (06:17)
[2016-05-10] MEDS: VANCOMYCIN 1.5 GM in SOD CHLORIDE 0.9% 250 ML IVPB SCH ×2 (06:37→18:28)
[2016-05-10 06:38] LABS: ADD SCAN DIFF NO
[2016-05-10 06:57] LABS: ABNORMAL IP MESSAGE 1; BASOPHILS % 0.5 % (0.0-2.0); EOSINOPHILS # 1.4 10^3/ul (0.0-0.5); EOSINOPHILS % 30.8 % (0.0-7.0); HEMATOCRIT 31.8 % (42.0-52.0); HEMOGLOBIN 11.1 g/dl (14.0-18.0); LYMPHOCYTES # 1.6 10^3/ul (0.8-2.9); LYMPHOCYTES % 35.5 % (15.0-51.0); MEAN CORPUSCULAR HEMOGLOBIN 29.1 pg (29.0-33.0); MEAN CORPUSCULAR HGB CONC 34.9 g/dl (32.0-37.0); MEAN CORPUSCULAR VOLUME 83.2 fl (82.0-101.0); MEAN PLATELET VOLUME 9.6 fl (7.4-10.4); MONOCYTE # 0.6 10^3/ul (0.3-0.9); NEUTROPHIL # 0.8 10^3/ul (1.6-7.5); NEUTROPHILS % 18.5 % (39.0-77.0); PLATELET COUNT 213 10^3/UL (140-415); RED BLOOD COUNT 3.82 10^6/ul (4.70-6.10); RED CELL DISTRIBUTION WIDTH 14.6 % (11.5-14.5); WHITE BLOOD COUNT 4.4 10^3/ul (4.8-10.8)
[2016-05-10 07:11] LABS: POTASSIUM 3.7 mmol/L (3.5-5.1)
[2016-05-10 07:13] LABS: CREATININE 0.74 mg/dl (0.61-1.24)
[2016-05-10 07:14] LABS: CALCIUM 8.2 mg/dl (8.4-10.2)
[2016-05-10] MEDS: NYSTATIN SUSP 5 ML CUP PO SCH ×4 (08:32→20:31)
--- NOTE | 2016-05-10 08:43 | CONS ---
Date/Time of Note Date/Time of Note DATE: 05/10/16 TIME: 08:43 Consult Date/Type/Reason Admit Date/Time May 03, 2016 at 19:51 Initial Consult Date 05/06/16 Type of Consultation: Card Ordering Provider: NAKIA LUNA MD Objective Vital Signs Date Time Temp Pulse Resp B/P Pulse Ox O2 Delivery O2 Flow Rate FiO2 05/10/16 08:07 169 05/10/16 07:15 101.4 20 129/70 94 05/07/16 21:00 Nasal Cannula 2.0 Intake and Output 05/09/16 05/09/16 05/10/16 15:00 23:00 07:00 Intake Total 1770 ml Output Total 750 ml 1440 ml Balance -750 ml 330 ml Results/Medications Result Diagram: 05/10/16 0612 05/10/16 0612 Results 24 hrs Laboratory Tests Test 05/10/16 06:12 Anion Gap 15 Basophils # 0.0 Basophils % 0.5 Blood Urea Nitrogen 11 Calcium Level 8.2 L Carbon Dioxide Level 21 Chloride Level 102 Creatinine 0.74 Eosinophils # 1.4 H Eosinophils % 30.8 H Glucose Level 108 Hematocrit 31.8 L Hemoglobin 11.1 L Lymphocytes # 1.6 Lymphocytes % 35.5 Mean Corpuscular Hemoglobin 29.1 Mean Corpuscular Hemoglobin Concent 34.9 Mean Corpuscular Volume 83.2 Mean Platelet Volume 9.6 Monocytes # 0.6 Monocytes % 14.0 H Neutrophils # 0.8 L Neutrophils % 18.5 L Nucleated Red Blood Cells # 0.0 Nucleated Red Blood Cells % 0.0 Platelet Count 213 Potassium Level 3.7 Prostate Specific Antigen 1.2 Red Blood Count 3.82 L Red Cell Distribution Width 14.6 H Sodium Level 134 L White Blood Count 4.4 L Medications Current Medications Diphenhydramine HCl (Benadryl) 25 mg Q6H PRN IV ITCHING Last administered on 00:17; Admin Dose 25 MG; Start 05/03/16 at 23:30 Morphine Sulfate (morphine) 2 mg Q4H PRN IV PAIN Last administered on 03:59; Admin Dose 2 MG; Start 05/03/16 at 23:30 Enoxaparin Sodium (Lovenox) 40 mg DAILY SC Last administered on 05/09/16 09:46 ; Admin Dose 40 MG; Start 05/04/16 at 09:00 Acetaminophen (Tylenol Tab) 650 mg Q4H PRN PO PAIN AND OR ELEVATED TEMP Last administered on 05/09/16 19:44; Admin Dose 650 MG; Start 05/03/16 at 23:30 Darunavir (Prezista) 800 mg DAILY PO Last administered on 05/09/16 09:45; Admin Dose 800 MG; Start 05/04/16 at 09:00 Acetaminophen/ Hydrocodone Bitart ([place] (5/325)) 1 tab Q4H PRN PO PAIN Last administered on 05/10/16 06:17; Admin Dose 1 TAB; Start 05/03/16 at 23:30 Multivitamins Therapeutic (Theragran) 1 tab DAILY PO Last administered on 09:45; Admin Dose 1 TAB; Start 05/04/16 at 09:00 Nystatin (Nystatin Susp) 5 ml QID PO Last administered on 05/09/16 09:45; Admin Dose 5 ML; Start 05/04/16 at 09:00 Azithromycin (Zithromax) 1,200 mg We@09 PO Last administered on 05/04/16 08:16 ; Admin Dose 1,200 MG; Start 05/04/16 at 09:00 Elvitegravir/ Cobicis/Emtricit/ Tenof (Stribild Tablet) 1 each DAILY PO Last administered on 05/09/16 12:31; Admin Dose 1 EACH; Start 05/04/16 at 09:00 Ibuprofen (Motrin) 400 mg Q6H PRN PO PAIN OR TEMP ABOVE 38C Last administered on 05/04/16 12:07; Admin Dose 400 MG; Start 05/04/16 at 11:30 Famotidine (Pepcid) 20 mg DAILY PO Last administered on 05/09/16 09:45; Admin Dose 20 MG; Start 05/04/16 at 12:30 Cyanocobalamin 1000 mcg 1,000 mcg Q28D IM Last administered on 05/05/16 09:45 ; Admin Dose 1,000 MCG; Start 05/04/16 at 09:00 Norepinephrine (Levophed) 250 ml @ 1.875 mls/ hr TITRATE IV ; Start 05/04/16 at 18:30; Status Future Hold Loratadine 10 mg 10 mg DAILY PO Last administered on 05/09/16 09:45; Admin Dose 10 MG; Start 05/06/16 at 09:00 Imipenem/ Cilastatin Sodium 100 ml @ 100 mls/hr Q6 IVPB Last administered on 06:17; Admin Dose 100 MLS/HR; Start 05/05/16 at 18:00 Sodium Chloride (NS) 1,000 ml @ 75 mls/hr [id number] IV Last administered on 05/09 18:34; Admin Dose 75 MLS/HR; Start 05/05/16 at 23:30 Aspirin (Aspirin) 325 mg DAILY PO Last administered on 05/09/16 09:45; Admin Dose 325 MG; Start 05/07/16 at 09:00 Eye Lubricant (Artificial Tears Oph) 2 drop QID BOTH EYES Last administered on 05/09/16 22:20; Admin Dose 2 DROP; Start 05/06/16 at 17:00 Diltiazem HCl 120 mg 120 mg DAILY PO Last administered on 05/09/16 09:45; Admin Dose 120 MG; Start 05/07/16 at 09:00 Vancomycin HCl/ Sodium Chloride (Vancocin/NS) 250 ml @ 83.333 mls/ hr Q12H IVPB Last administered on 05/10/16 06:37; Admin Dose 83.333 MLS/HR; Start at 18:00 Trimethoprim/ Sulfamethoxazole 1 tab 1 tab SuTuTh@09 PO Last administered on 09:35; Admin Dose 1 TAB; Start 05/08/16 at 09:00 Caspofungin/ Sodium Chloride (Cancidas/NS) 250 ml @ 250 mls/hr Q24H IVPB Last administered on 05/09/16 22:21; Admin Dose 250 MLS/HR; Start 05/09/16 at 16:00 Assessment/Plan Chief Complaint/Hosp Course Patient iwth 66 year old M with AIDS recently started on meds, Esophagitis, HTN , who under went new onset Afib with RVR, now going at 150s but asymptomatic. His Cr went up from 0.9 to 1.5. No CP or SOB Problems: Additional Assessment/Plan Stable ID o n case f/u out pt with card. MUSA REYES MD May 10, 2016 08:43
[2016-05-10] MEDS: ASPIRIN 325 MG TAB PO SCH (09:10)
[2016-05-10] MEDS: MULTIVITAMINS THERAPEUTIC TAB PO SCH (09:10)
[2016-05-10] MEDS: LORATADINE 10 MG TAB PO SCH (09:10)
[2016-05-10] MEDS: DILTIAZEM 60 MG TAB PO SCH (09:10)
[2016-05-10] MEDS: FAMOTIDINE 20 MG TAB PO SCH (09:10)
[2016-05-10] MEDS: DARUNAVIR ETHANOLATE 800 MG TABLET PO SCH (09:10)
[2016-05-10] MEDS: ARTIFICIAL TEARS 15 ML OPH BOTH EYES SCH ×4 (09:11→20:31)
[2016-05-10] MEDS: ENOXAPARIN 40 MG/0.4 ML SYG SC SCH (09:16)
[2016-05-10] MEDS: ELVITEGR/COBICIST/EMTRIC/TENOF 1 EACH TABLET PO SCH (09:52)
[2016-05-10] MEDS: TRIMETHOPRIM/SULFAMETHOX (DS) TAB PO SCH (09:52)
--- NOTE | 2016-05-10 12:59 | CONS ---
Date/Time of Note Date/Time of Note DATE: 05/10/16 TIME: 12:59 Assessment/Plan Assessment/Plan Chief Complaint/Hosp Course assessment/impression: - GNR bacteremia 05/03/16. CT of neck/chest/abd/pel shows no occult infection. - recurrent neutropenic fever, infectious process vs. immune reconstitution inflammatory response - advanced AIDS (CD<20, viral load 166,544 copies in 04/2016), was non-compliant with medications. Restarted on Stribild and darunavir on 04/23/2016 - neutropenia s/p BMBx, no e/o infections or malignancy at this time. CMV IHC negative, CMV PCR in serum was <200, cocci and crypto negative, QTB gold negative - h/o cough in 03/2016. CXR showed overinflated lungs, CT showed benign appearing sub-centimeter nodule seen at the bilateral lung bases - h/o E. coli in urine, likely colonization. completed treatment for this - LUE weakness and pain due to tear of rotator cuff muscles and bicep tendon anchor - L cervical and supraclavicular lymphadenopathy probably due to HIV infection - h/o thrush, resolved - hyperpigmented lesions on b/l LE x several months according to Pt - pruritis - improving - eosinophilia - Hx prostatitis - PSA WNL recommendations: - Add Aztreonam for double GN coverage. Check lactic acid level. - F/u final C&S of GNR bacteremia 05/03/16; I spoke to Lu in [facility] on 05/09/16 who said results should be available tomorrow; Spoke to Cecily in [facility] today who said final bld cx results still not yet available. - Continue empiric Caspofungin (05/09/16-); F/u procalcitonin and Beta D Glucan ( pending) - Continue empiric vancomycin (05/04/16-) and imipenem (05/05/16-) - F/u crowley cultures (repeat blood and urine cultures 05/07/16 negative to date, UA negative), AFB blood culture, AFB stool. - F/u CD4 count and HIV viral load for surveillance (pending). - eosinophilia and pruritis: F/u stool O&P (pending). - Continue Bactrim three times a week for a possibility of atovaquone-related rash - Continue Stribild (tenofovir/emtricitabine/elvitaegravir/cobicistat) and darunavir 800mg (darunavir dosed at 800mg to simulate Prezcobix (darunavir 800mg /cobicistat 150mg) - Continue azithromycin for MAC prophylaxis - Consider biopsy of left supraclavicular lymph nodes and WBC scan. - Consider Psych eval - Management d/w pt's RN and EMBEDDED SOFTWARE ENGINEER Aaron. - Above d/w Dr. Narayanan Problems: Consultation Date/Type/Reason Admit Date/Time May 03, 2016 at 19:51 Initial Consult Date 05/06/16 Type of Consultation: Infectious Disease Referring Provider: NAKIA LUNA MD 24 HR Interval Summary Free Text/Dictation Tmax 102. Spiked fever last night and this morning; compliant with meds per THOMAS Connor. C/o bilateral cervical lymph node pain when febrile. States "I think that this (cervical LN) is the cause of my fever". Denies CP, SOB, abd pain, n/v/d, dysuria. Has same LUE pain and weakness. Pruritus has significantly improved. Pt requesting Operations Planner assistance to fill out court paperwork. Exam/Review of Systems Vital Signs Vitals Vital Signs Date Time Temp Pulse Resp B/P Pulse Ox O2 Delivery O2 Flow Rate FiO2 05/10/16 12:06 94 05/10/16 11:28 98.1 18 122/69 95 05/07/16 21:00 Nasal Cannula 2.0 Intake and Output 05/09/16 05/09/16 05/10/16 15:00 23:00 07:00 Intake Total 1770 ml Output Total 750 ml 1440 ml Balance -750 ml 330 ml Exam Constitutional: alert, oriented, well developed Head: atraumatic, normocephalic ENMT: mucosa pink and moist, other (skin tear noted on lower lip which is starting to heal) Neck: supple, No jvd Respiratory: clear to auscultation, normal air movement Cardiovascular: nl pulses, regular rate and rhythm Gastrointestinal: non-tender, soft Musculoskeletal: nl gait and stance Extremities: normal pulses, No clubbing, No cyanosis, No edema Neurological: focal weakness (LUE), nl mental status, nl speech Skin: nl turgor, rash or lesions (erythroderma of the face) Lymph: enlarged (bilateral cervical lymph nodes; TTP) Results Result Diagram: 05/10/16 0612 05/10/16 0612 Results 24 hrs Laboratory Tests Test 05/10/16 06:12 Anion Gap 15 Basophils # 0.0 Basophils % 0.5 Blood Urea Nitrogen 11 Calcium Level 8.2 L Carbon Dioxide Level 21 Chloride Level 102 Creatinine 0.74 Eosinophils # 1.4 H Eosinophils % 30.8 H Glucose Level 108 Hematocrit 31.8 L Hemoglobin 11.1 L Lymphocytes # 1.6 Lymphocytes % 35.5 Mean Corpuscular Hemoglobin 29.1 Mean Corpuscular Hemoglobin Concent 34.9 Mean Corpuscular Volume 83.2 Mean Platelet Volume 9.6 Monocytes # 0.6 Monocytes % 14.0 H Neutrophils # 0.8 L Neutrophils % 18.5 L Nucleated Red Blood Cells # 0.0 Nucleated Red Blood Cells % 0.0 Platelet Count 213 Potassium Level 3.7 Prostate Specific Antigen 1.2 Red Blood Count 3.82 L Red Cell Distribution Width 14.6 H Sodium Level 134 L White Blood Count 4.4 L Medications Medications Current Medications Diphenhydramine HCl (Benadryl) 25 mg Q6H PRN IV ITCHING Last administered on 00:17; Admin Dose 25 MG; Start 05/03/16 at 23:30 Morphine Sulfate (morphine) 2 mg Q4H PRN IV PAIN Last administered on 03:59; Admin Dose 2 MG; Start 05/03/16 at 23:30 Enoxaparin Sodium (Lovenox) 40 mg DAILY SC Last administered on 05/10/16 09:16 ; Admin Dose 40 MG; Start 05/04/16 at 09:00 Acetaminophen (Tylenol Tab) 650 mg Q4H PRN PO PAIN AND OR ELEVATED TEMP Last administered on 05/09/16 19:44; Admin Dose 650 MG; Start 05/03/16 at 23:30 Darunavir (Prezista) 800 mg DAILY PO Last administered on 05/10/16 09:10; Admin Dose 800 MG; Start 05/04/16 at 09:00 Acetaminophen/ Hydrocodone Bitart ([place] (5/325)) 1 tab Q4H PRN PO PAIN Last administered on 05/10/16 06:17; Admin Dose 1 TAB; Start 05/03/16 at 23:30 Multivitamins Therapeutic (Theragran) 1 tab DAILY PO Last administered on 09:10; Admin Dose 1 TAB; Start 05/04/16 at 09:00 Nystatin (Nystatin Susp) 5 ml QID PO Last administered on 05/09/16 09:45; Admin Dose 5 ML; Start 05/04/16 at 09:00 Azithromycin (Zithromax) 1,200 mg We@09 PO Last administered on 05/04/16 08:16 ; Admin Dose 1,200 MG; Start 05/04/16 at 09:00 Elvitegravir/ Cobicis/Emtricit/ Tenof (Stribild Tablet) 1 each DAILY PO Last administered on 05/10/16 09:52; Admin Dose 1 EACH; Start 05/04/16 at 09:00 Ibuprofen (Motrin) 400 mg Q6H PRN PO PAIN OR TEMP ABOVE 38C Last administered on 05/04/16 12:07; Admin Dose 400 MG; Start 05/04/16 at 11:30 Famotidine (Pepcid) 20 mg DAILY PO Last administered on 05/10/16 09:10; Admin Dose 20 MG; Start 05/04/16 at 12:30 Cyanocobalamin (Vitamin B12 Inj) 1,000 mcg Q28D IM Last administered on 09:45; Admin Dose 1,000 MCG; Start 05/04/16 at 09:00 Loratadine 10 mg 10 mg DAILY PO Last administered on 05/10/16 09:10; Admin Dose 10 MG; Start 05/06/16 at 09:00 Imipenem/ Cilastatin Sodium 100 ml @ 100 mls/hr Q6 IVPB Last administered on 11:16; Admin Dose 100 MLS/HR; Start 05/05/16 at 18:00 Sodium Chloride (NS) 1,000 ml @ 75 mls/hr [id number] IV Last administered on 05/09 18:34; Admin Dose 75 MLS/HR; Start 05/05/16 at 23:30 Aspirin (Aspirin) 325 mg DAILY PO Last administered on 05/10/16 09:10; Admin Dose 325 MG; Start 05/07/16 at 09:00 Eye Lubricant (Artificial Tears Oph) 2 drop QID BOTH EYES Last administered on 05/10/16 09:11; Admin Dose 2 DROP; Start 05/06/16 at 17:00 Diltiazem HCl 120 mg 120 mg DAILY PO Last administered on 05/10/16 09:10; Admin Dose 120 MG; Start 05/07/16 at 09:00 Vancomycin HCl/ Sodium Chloride (Vancocin/NS) 250 ml @ 83.333 mls/ hr Q12H IVPB Last administered on 05/10/16 06:37; Admin Dose 83.333 MLS/HR; Start at 18:00 Trimethoprim/ Sulfamethoxazole 1 tab 1 tab SuTuTh@09 PO Last administered on 09:52; Admin Dose 1 TAB; Start 05/08/16 at 09:00 Caspofungin/ Sodium Chloride (Cancidas/NS) 250 ml @ 250 mls/hr Q24H IVPB Last administered on 05/09/16 22:21; Admin Dose 250 MLS/HR; Start 05/09/16 at 16:[address] neck/chest/abd/pelvis 05/07/16: CT neck: Small bilateral cervical lymph nodes are seen. There is a mildly prominent cluster of small left supraclavicular lymph nodes. No neck abscess identified. CT chest: Mildly prominent left axillary lymph nodes are identified with the largest measuring 1 cm short axis. Small to moderate right and small left pleural effusions are new from prior. Bilateral lower lobe atelectasis/infiltrates are identified. Sub centimeter bilateral lower lobe nodules. Recommend interval follow up in 6 months. Small pericardial effusion. CT abdomen and pelvis: No intra-abdominal abscess identified. No evidence of bulky lymphadenopathy. Nonobstructing 5 mm right lower renal pole stone. AVERY SHAHID NP May 10, 2016 12:59
--- NOTE | 2016-05-10 16:16 | PN ---
Date/Time of Note Date/Time of Note DATE: 05/10/16 TIME: 16:13 Assessment/Plan VTE Prophylaxis VTE Prophylaxis Intervention: SCD's Lines/Catheters [facility] Peripheral IV Urinary Cath still in place: No Assessment/Plan Chief Complaint/Hosp Course ASSESSMENT AND PLAN: -Sepsis with gram-negative rods bacteremia. Dr. Narayanan is following infectious disease consultation. Continue antibiotics per ID. -Neutropenic fever. Continue neutropenic precautions. Continue broad spectrum antibiotics. Follow up on urine and blood cultures. -Advanced AIDS. Continue the patient on Stribild, darunavir and Mepron. Continue azithromycin. - Afib with RVR, Dr. Silver is following in cardiology consultation. Continue Cardizem. - Medical non- compliance. Sequential compression devices for deep venous thrombosis prophylaxis and Pepcid for peptic ulcer disease prophylaxis. Further recommendations based on clinical course. Plan of care discussed with Dr. Walden. Problems: Subjective 24 Hr Interval Summary Free Text/Dictation Patient's continues to spike fever, currently in sinus rhythm however had episode of atrial fibrillation and rapid ventricular response, denies chills, complains of the neck pain, denies any nausea vomiting. Exam/Review of Systems Vital Signs Vitals Vital Signs Date Time Temp Pulse Resp B/P Pulse Ox O2 Delivery O2 Flow Rate FiO2 05/10/16 15:27 98.5 79 20 146/66 96 05/07/16 21:00 Nasal Cannula 2.0 Intake and Output 05/09/16 05/09/16 05/10/16 15:00 23:00 07:00 Intake Total 1770 ml Output Total 750 ml 1440 ml Balance -750 ml 330 ml Exam GENERAL: Well-developed, well-nourished male currently is tachycardic, febrile and has chills. Awake, alert and oriented x2. HEENT: Head is atraumatic, normocephalic. Pupils equal, round, reactive to light and accommodation. Oral mucosa is pink and moist. NECK: Supple, no cervical lymphadenopathy. No thyromegaly. LUNGS: Slightly diminished at the bases. Clear in the upper lobes. There are no wheezes, rhonchi noted. CARDIOVASCULAR: The patient is tachycardic. Normal S1, S2. No murmurs, gallops, clicks, rubs noted. ABDOMEN: Round, soft, nondistended, nontender. Bowel sounds present. No guarding, no rebound tenderness. EXTREMITIES: There is no edema, clubbing, cyanosis. Pulses equal bilaterally 2 +. SKIN: The patient has diffuse erythema all over his body. There is no maculopapular rash, no petechiae. No ecchymosis noted. NEUROLOGIC: Patient is awake, alert and oriented. Results Result Diagram: 05/10/16 0612 05/10/16 0612 Results 24 hrs Laboratory Tests Test 05/10/16 06:12 05/10/16 14:35 Anion Gap 15 Basophils # 0.0 Basophils % 0.5 Blood Urea Nitrogen 11 Calcium Level 8.2 L Carbon Dioxide Level 21 Chloride Level 102 Creatinine 0.74 Eosinophils # 1.4 H Eosinophils % 30.8 H Glucose Level 108 Hematocrit 31.8 L Hemoglobin 11.1 L Lymphocytes # 1.6 Lymphocytes % 35.5 Mean Corpuscular Hemoglobin 29.1 Mean Corpuscular Hemoglobin Concent 34.9 Mean Corpuscular Volume 83.2 Mean Platelet Volume 9.6 Monocytes # 0.6 Monocytes % 14.0 H Neutrophils # 0.8 L Neutrophils % 18.5 L Nucleated Red Blood Cells # 0.0 Nucleated Red Blood Cells % 0.0 Platelet Count 213 Potassium Level 3.7 Prostate Specific Antigen 1.2 Red Blood Count 3.82 L Red Cell Distribution Width 14.6 H Sodium Level 134 L White Blood Count 4.4 L Lactic Acid Level 3.0 H Medications Medications Current Medications Diphenhydramine HCl (Benadryl) 25 mg Q6H PRN IV ITCHING Last administered on 00:17; Admin Dose 25 MG; Start 05/03/16 at 23:30 Morphine Sulfate (morphine) 2 mg Q4H PRN IV PAIN Last administered on 14:28; Admin Dose 2 MG; Start 05/03/16 at 23:30 Enoxaparin Sodium (Lovenox) 40 mg DAILY SC Last administered on 05/10/16 09:16 ; Admin Dose 40 MG; Start 05/04/16 at 09:00 Acetaminophen (Tylenol Tab) 650 mg Q4H PRN PO PAIN AND OR ELEVATED TEMP Last administered on 05/09/16 19:44; Admin Dose 650 MG; Start 05/03/16 at 23:30 Darunavir (Prezista) 800 mg DAILY PO Last administered on 05/10/16 09:10; Admin Dose 800 MG; Start 05/04/16 at 09:00 Acetaminophen/ Hydrocodone Bitart ([place] (5/325)) 1 tab Q4H PRN PO PAIN Last administered on 05/10/16 06:17; Admin Dose 1 TAB; Start 05/03/16 at 23:30 Multivitamins Therapeutic (Theragran) 1 tab DAILY PO Last administered on 09:10; Admin Dose 1 TAB; Start 05/04/16 at 09:00 Nystatin (Nystatin Susp) 5 ml QID PO Last administered on 05/10/16 14:29; Admin Dose 5 ML; Start 05/04/16 at 09:00 Azithromycin (Zithromax) 1,200 mg We@09 PO Last administered on 05/04/16 08:16 ; Admin Dose 1,200 MG; Start 05/04/16 at 09:00 Elvitegravir/ Cobicis/Emtricit/ Tenof (Stribild Tablet) 1 each DAILY PO Last administered on 05/10/16 09:52; Admin Dose 1 EACH; Start 05/04/16 at 09:00 Ibuprofen (Motrin) 400 mg Q6H PRN PO PAIN OR TEMP ABOVE 38C Last administered on 05/04/16 12:07; Admin Dose 400 MG; Start 05/04/16 at 11:30 Famotidine (Pepcid) 20 mg DAILY PO Last administered on 05/10/16 09:10; Admin Dose 20 MG; Start 05/04/16 at 12:30 Cyanocobalamin (Vitamin B12 Inj) 1,000 mcg Q28D IM Last administered on 09:45; Admin Dose 1,000 MCG; Start 05/04/16 at 09:00 Loratadine 10 mg 10 mg DAILY PO Last administered on 05/10/16 09:10; Admin Dose 10 MG; Start 05/06/16 at 09:00 Imipenem/ Cilastatin Sodium 100 ml @ 100 mls/hr Q6 IVPB Last administered on 11:16; Admin Dose 100 MLS/HR; Start 05/05/16 at 18:00 Sodium Chloride (NS) 1,000 ml @ 75 mls/hr [id number] IV Last administered on 05/09 18:34; Admin Dose 75 MLS/HR; Start 05/05/16 at 23:30 Aspirin (Aspirin) 325 mg DAILY PO Last administered on 05/10/16 09:10; Admin Dose 325 MG; Start 05/07/16 at 09:00 Eye Lubricant (Artificial Tears Oph) 2 drop QID BOTH EYES Last administered on 05/10/16 14:29; Admin Dose 2 DROP; Start 05/06/16 at 17:00 Diltiazem HCl 120 mg 120 mg DAILY PO Last administered on 05/10/16 09:10; Admin Dose 120 MG; Start 05/07/16 at 09:00 Vancomycin HCl/ Sodium Chloride (Vancocin/NS) 250 ml @ 83.333 mls/ hr Q12H IVPB Last administered on 05/10/16 06:37; Admin Dose 83.333 MLS/HR; Start at 18:00 Trimethoprim/ Sulfamethoxazole 1 tab 1 tab SuTuTh@09 PO Last administered on 09:52; Admin Dose 1 TAB; Start 05/08/16 at 09:00 Caspofungin 50 mg/ Sodium Chloride 250 ml @ 250 mls/hr Q24H IVPB Last administered on 05/09/16 22:21; Admin Dose 250 MLS/HR; Start 05/09/16 at 16:00 Aztreonam/Sodium Chloride (Azactam/NS) 100 ml @ 100 mls/hr Q8 IVPB ; Start at 14:30 AAKASH MITCHELL May 10, 2016 16:16
[2016-05-10] MEDS: AZTREONAM 2 GM in SOD CHLORIDE 0.9% 100 ML IVPB SCH ×2 (17:15→22:31)
[2016-05-10] MEDS: CASPOFUNGIN 50 MG in SOD CHLORIDE 0.9% 250 ML IVPB SCH (17:23)
[2016-05-10] MEDS: SOD CHLORIDE 0.9% 1,000 ML IV SCH ×2 (18:25→23:30)
[2016-05-11] VITALS (13 sets, daily range): BP systolic 117–154; BP diastolic 70–92; PULSE 70–110; RESP 18–20
[2016-05-11] MEDS: ACETAMINOPHEN 325 MG TAB PO PRN ×2 (00:07→15:16)
[2016-05-11] MEDS: IMIPENEM-CILAST 500 MG/NS 100 ML IVPB SCH ×5 (00:07→23:37)
[2016-05-11] MEDS: AZTREONAM 2 GM in SOD CHLORIDE 0.9% 100 ML IVPB SCH ×3 (04:50→21:25)
[2016-05-11] MEDS: VANCOMYCIN 1.5 GM in SOD CHLORIDE 0.9% 250 ML IVPB SCH ×2 (05:35→18:03)
[2016-05-11 07:26] LABS: ADD SCAN DIFF NO
[2016-05-11 07:32] LABS: ABNORMAL IP MESSAGE 1; BASOPHILS % 0.4 % (0.0-2.0); EOSINOPHILS # 2.1 10^3/ul (0.0-0.5); EOSINOPHILS % 30.6 % (0.0-7.0); HEMATOCRIT 37.6 % (42.0-52.0); HEMOGLOBIN 12.7 g/dl (14.0-18.0); LYMPHOCYTES # 2.4 10^3/ul (0.8-2.9); LYMPHOCYTES % 36.3 % (15.0-51.0); MEAN CORPUSCULAR HEMOGLOBIN 28.9 pg (29.0-33.0); MEAN CORPUSCULAR HGB CONC 33.8 g/dl (32.0-37.0); MEAN CORPUSCULAR VOLUME 85.6 fl (82.0-101.0); MEAN PLATELET VOLUME 10.8 fl (7.4-10.4); MONOCYTE # 0.8 10^3/ul (0.3-0.9); MONOCYTES % 11.2 % (0.0-11.0); NEUTROPHIL # 1.4 10^3/ul (1.6-7.5); NEUTROPHILS % 20.9 % (39.0-77.0); PLATELET COUNT 189 10^3/UL (140-415); RED BLOOD COUNT 4.39 10^6/ul (4.70-6.10); RED CELL DISTRIBUTION WIDTH 15.4 % (11.5-14.5); WHITE BLOOD COUNT 6.7 10^3/ul (4.8-10.8)
[2016-05-11 07:47] LABS: POTASSIUM 4.7 mmol/L (3.5-5.1)
[2016-05-11 07:49] LABS: CREATININE 0.65 mg/dl (0.61-1.24)
[2016-05-11 07:50] LABS: CALCIUM 7.7 mg/dl (8.4-10.2)
[2016-05-11] MEDS: ARTIFICIAL TEARS 15 ML OPH BOTH EYES SCH ×4 (09:00→21:25)
[2016-05-11] MEDS: NYSTATIN SUSP 5 ML CUP PO SCH ×4 (09:00→21:25)
--- NOTE | 2016-05-11 10:48 | CONS ---
Date/Time of Note Date/Time of Note DATE: 05/11/16 TIME: 10:45 Assessment/Plan Assessment/Plan Chief Complaint/Hosp Course - GNR bacteremia 05/03/16. CT of neck/chest/abd/pel shows no occult infection. - recurrent neutropenic fever, infectious process vs. immune reconstitution inflammatory response - advanced AIDS (CD<20, viral load 166,544 copies in 04/2016), was non-compliant with medications. Restarted on Stribild and darunavir on 04/23/2016 - neutropenia s/p BMBx, no e/o infections or malignancy at this time. CMV IHC negative, CMV PCR in serum was <200, cocci and crypto negative, QTB gold negative - h/o cough in 03/2016. CXR showed overinflated lungs, CT showed benign appearing sub-centimeter nodule seen at the bilateral lung bases - h/o E. coli in urine, likely colonization. completed treatment for this - LUE weakness and pain due to tear of rotator cuff muscles and bicep tendon anchor - L cervical and supraclavicular lymphadenopathy probably due to HIV infection - h/o thrush, resolved - hyperpigmented lesions on b/l LE x several months according to Pt - pruritis - improving - eosinophilia - Hx prostatitis - PSA WNL recommendations: - cont. Aztreonam for double GN coverage. - F/u final C&S of GNR bacteremia --still not back - Continue empiric Caspofungin (05/09/16-); F/u procalcitonin and Beta D Glucan ( pending) - Continue empiric vancomycin (05/04/16-) and imipenem (05/05/16-) - F/u crowley cultures (repeat blood and urine cultures 05/07/16 negative to date, UA negative), AFB blood culture, AFB stool. - F/u CD4 count and HIV viral load for surveillance (pending). - eosinophilia and pruritis: F/u stool O&P (pending). - Continue Bactrim three times a week for a possibility of atovaquone-related rash - Continue Stribild (tenofovir/emtricitabine/elvitaegravir/cobicistat) and darunavir 800mg (darunavir dosed at 800mg to simulate Prezcobix (darunavir 800mg /cobicistat 150mg) - Continue azithromycin for MAC prophylaxis - Consider biopsy of left supraclavicular lymph nodes and WBC scan. - Consider Psych eval Problems: Consultation Date/Type/Reason Admit Date/Time May 03, 2016 at 19:51 Type of Consultation: Infectious Disease Referring Provider: NAKIA LUNA MD Exam/Review of Systems Vital Signs Vitals Vital Signs Date Time Temp Pulse Resp B/P Pulse Ox O2 Delivery O2 Flow Rate FiO2 05/11/16 08:09 101 05/11/16 07:42 99.1 20 153/90 97 05/07/16 21:00 Nasal Cannula 2.0 Intake and Output 05/10/16 05/10/16 05/11/16 15:00 23:00 07:00 Intake Total 1500 ml 2500 ml 1433.3 ml Output Total 1600 ml 1600 ml 2000 ml Balance -100 ml 900 ml -566.7 ml Exam Constitutional: alert, oriented, other, well developed Head: atraumatic, normocephalic Eyes: EOMI, PERRL, nl conjunctiva, nl lids, nl sclera Respiratory: clear to auscultation, normal air movement Cardiovascular: nl pulses, regular rate and rhythm Gastrointestinal: nl liver, spleen, non-tender, soft Results Result Diagram: 05/11/16 0704 05/11/16 0704 Results 24 hrs Laboratory Tests Test 05/10/16 14:35 05/11/16 07:04 Lactic Acid Level 3.0 H White Blood Count 6.7 # Red Blood Count 4.39 L Hemoglobin 12.7 L Hematocrit 37.6 L Mean Corpuscular Volume 85.6 Mean Corpuscular Hemoglobin 28.9 L Mean Corpuscular Hemoglobin Concent 33.8 Red Cell Distribution Width 15.4 H Platelet Count 189 Mean Platelet Volume 10.8 H Neutrophils % 20.9 L Lymphocytes % 36.3 Monocytes % 11.2 H Eosinophils % 30.6 H Basophils % 0.4 Nucleated Red Blood Cells % 0.0 Neutrophils # 1.4 L Lymphocytes # 2.4 Monocytes # 0.8 Eosinophils # 2.1 H Basophils # 0.0 Nucleated Red Blood Cells # 0.0 Sodium Level 134 L Potassium Level 4.7 Chloride Level 102 Carbon Dioxide Level 19 L Anion Gap 18 H Blood Urea Nitrogen 8 Creatinine 0.65 Glucose Level 64 #L Calcium Level 7.7 L Medications Medications Current Medications Diphenhydramine HCl (Benadryl) 25 mg Q6H PRN IV ITCHING Last administered on 20:31; Admin Dose 25 MG; Start 05/03/16 at 23:30 Morphine Sulfate (morphine) 2 mg Q4H PRN IV PAIN Last administered on 22:37; Admin Dose 2 MG; Start 05/03/16 at 23:30 Enoxaparin Sodium (Lovenox) 40 mg DAILY SC Last administered on 05/10/16 09:16 ; Admin Dose 40 MG; Start 05/04/16 at 09:00 Acetaminophen (Tylenol Tab) 650 mg Q4H PRN PO PAIN AND OR ELEVATED TEMP Last administered on 05/11/16 00:07; Admin Dose 650 MG; Start 05/03/16 at 23:30 Darunavir (Prezista) 800 mg DAILY PO Last administered on 05/10/16 09:10; Admin Dose 800 MG; Start 05/04/16 at 09:00 Acetaminophen/ Hydrocodone Bitart ([place] (5/325)) 1 tab Q4H PRN PO PAIN Last administered on 05/10/16 06:17; Admin Dose 1 TAB; Start 05/03/16 at 23:30 Multivitamins Therapeutic (Theragran) 1 tab DAILY PO Last administered on 09:10; Admin Dose 1 TAB; Start 05/04/16 at 09:00 Nystatin (Nystatin Susp) 5 ml QID PO Last administered on 05/10/16 20:31; Admin Dose 5 ML; Start 05/04/16 at 09:00 Azithromycin (Zithromax) 1,200 mg We@09 PO Last administered on 05/04/16 08:16 ; Admin Dose 1,200 MG; Start 05/04/16 at 09:00 Elvitegravir/ Cobicis/Emtricit/ Tenof (Stribild Tablet) 1 each DAILY PO Last administered on 05/10/16 09:52; Admin Dose 1 EACH; Start 05/04/16 at 09:00 Ibuprofen (Motrin) 400 mg Q6H PRN PO PAIN OR TEMP ABOVE 38C Last administered on 05/04/16 12:07; Admin Dose 400 MG; Start 05/04/16 at 11:30 Famotidine (Pepcid) 20 mg DAILY PO Last administered on 05/10/16 09:10; Admin Dose 20 MG; Start 05/04/16 at 12:30 Cyanocobalamin (Vitamin B12 Inj) 1,000 mcg Q28D IM Last administered on 09:45; Admin Dose 1,000 MCG; Start 05/04/16 at 09:00 Loratadine 10 mg 10 mg DAILY PO Last administered on 05/10/16 09:10; Admin Dose 10 MG; Start 05/06/16 at 09:00 Imipenem/ Cilastatin Sodium 100 ml @ 100 mls/hr Q6 IVPB Last administered on 05:35; Admin Dose 100 MLS/HR; Start 05/05/16 at 18:00 Sodium Chloride (NS) 1,000 ml @ 75 mls/hr [id number] IV Last administered on 05/10 18:25; Admin Dose 75 MLS/HR; Start 05/05/16 at 23:30 Aspirin (Aspirin) 325 mg DAILY PO Last administered on 05/10/16 09:10; Admin Dose 325 MG; Start 05/07/16 at 09:00 Eye Lubricant (Artificial Tears Oph) 2 drop QID BOTH EYES Last administered on 05/10/16 20:31; Admin Dose 2 DROP; Start 05/06/16 at 17:00 Diltiazem HCl 120 mg 120 mg DAILY PO Last administered on 05/10/16 09:10; Admin Dose 120 MG; Start 05/07/16 at 09:00 Vancomycin HCl/ Sodium Chloride (Vancocin/NS) 250 ml @ 83.333 mls/ hr Q12H IVPB Last administered on 05/11/16 05:35; Admin Dose 83.333 MLS/HR; Start at 18:00 Trimethoprim/ Sulfamethoxazole 1 tab 1 tab SuTuTh@09 PO Last administered on 09:52; Admin Dose 1 TAB; Start 05/08/16 at 09:00 Caspofungin 50 mg/ Sodium Chloride 250 ml @ 250 mls/hr Q24H IVPB Last administered on 05/10/16 17:23; Admin Dose 250 MLS/HR; Start 05/09/16 at 16:00 Aztreonam/Sodium Chloride (Azactam/NS) 100 ml @ 100 mls/hr Q8 IVPB Last administered on 05/11/16t 04:50; Admin Dose 100 MLS/HR; Start 05/10/16 at 14:30 Valacyclovir HCl (Valtrex) 1,000 mg TID PO ; Start 05/11/16 at 13:00; Stop 05/18 at 12:59 GALILEA GOMEZ MD May 11, 2016 10:48
[2016-05-11] MEDS: MULTIVITAMINS THERAPEUTIC TAB PO SCH (12:26)
[2016-05-11] MEDS: LORATADINE 10 MG TAB PO SCH (12:26)
[2016-05-11] MEDS: DILTIAZEM 60 MG TAB PO SCH (12:26)
[2016-05-11] MEDS: FAMOTIDINE 20 MG TAB PO SCH (12:26)
[2016-05-11] MEDS: DARUNAVIR ETHANOLATE 800 MG TABLET PO SCH (12:27)
[2016-05-11] MEDS: ASPIRIN 325 MG TAB PO SCH (12:27)
[2016-05-11] MEDS: ELVITEGR/COBICIST/EMTRIC/TENOF 1 EACH TABLET PO SCH (12:27)
[2016-05-11] MEDS: ENOXAPARIN 40 MG/0.4 ML SYG SC SCH (12:33)
[2016-05-11] MEDS: SOD CHLORIDE 0.9% 1,000 ML IV SCH (12:33)
[2016-05-11] MEDS: AZITHROMYCIN 600 MG TAB PO SCH (13:23)
[2016-05-11] MEDS: VALACYCLOVIR 500 MG TAB PO SCH ×2 (13:23→21:25)
[2016-05-11] MEDS: morphine 2 MG INJ IV PRN ×2 (15:03→22:53)
[2016-05-11] MEDS: CASPOFUNGIN 50 MG in SOD CHLORIDE 0.9% 250 ML IVPB SCH (16:39)
--- NOTE | 2016-05-11 18:32 | PN ---
Date/Time of Note Date/Time of Note DATE: 05/11/16 TIME: 18:30 Assessment/Plan VTE Prophylaxis VTE Prophylaxis Intervention: SCD's Lines/Catheters IV [facility]ter Type [facility]from [facility] Saline Lock Urinary Cath still in place: No Assessment/Plan Chief Complaint/Hosp Course ASSESSMENT AND PLAN: -Sepsis with gram-negative rods bacteremia. Dr. Narayanan is following infectious disease consultation. Continue antibiotics per ID. Pending biopsy of left supraclavicular lymph nodes and WBC scan. -Neutropenic fever. Continue neutropenic precautions. Continue broad spectrum antibiotics. Follow up on urine and blood cultures. -Advanced AIDS. Continue the patient on Stribild, darunavir and Mepron. Continue azithromycin. - Afib with RVR, Dr. Silver is following in cardiology consultation. Continue Cardizem. - Medical non- compliance. Sequential compression devices for deep venous thrombosis prophylaxis and Pepcid for peptic ulcer disease prophylaxis. Further recommendations based on clinical course. Plan of care discussed with Dr. Walden. Problems: Subjective 24 Hr Interval Summary Free Text/Dictation Patient continues to spike fever, sinus tach with occasional PACs, complaints of the neck pain, denies nausea vomiting. Exam/Review of Systems Vital Signs Vitals Vital Signs Date Time Temp Pulse Resp B/P Pulse Ox O2 Delivery O2 Flow Rate FiO2 05/11/16 16:04 102 05/11/16 15:31 102.8 20 148/90 97 05/07/16 21:00 Nasal Cannula 2.0 Intake and Output 05/10/16 05/10/16 05/11/16 15:00 23:00 07:00 Intake Total 1500 ml 2500 ml 1433.3 ml Output Total 1600 ml 1600 ml 2000 ml Balance -100 ml 900 ml -566.7 ml Exam GENERAL: Well-developed, well-nourished male currently is tachycardic, febrile and has chills. Awake, alert and oriented x2. HEENT: Head is atraumatic, normocephalic. Pupils equal, round, reactive to light and accommodation. Oral mucosa is pink and moist. NECK: Supple, no cervical lymphadenopathy. No thyromegaly. LUNGS: Slightly diminished at the bases. Clear in the upper lobes. There are no wheezes, rhonchi noted. CARDIOVASCULAR: The patient is tachycardic. Normal S1, S2. No murmurs, gallops, clicks, rubs noted. ABDOMEN: Round, soft, nondistended, nontender. Bowel sounds present. No guarding, no rebound tenderness. EXTREMITIES: There is no edema, clubbing, cyanosis. Pulses equal bilaterally 2 +. SKIN: The patient has diffuse erythema all over his body. There is no maculopapular rash, no petechiae. No ecchymosis noted. NEUROLOGIC: Patient is awake, alert and oriented. Results Result Diagram: 05/11/16 0705/11/16 0704 Results 24 hrs Laboratory Tests Test 05/11/16 07:04 White Blood Count 6.7 # Red Blood Count 4.39 L Hemoglobin 12.7 L Hematocrit 37.6 L Mean Corpuscular Volume 85.6 Mean Corpuscular Hemoglobin 28.9 L Mean Corpuscular Hemoglobin Concent 33.8 Red Cell Distribution Width 15.4 H Platelet Count 189 Mean Platelet Volume 10.8 H Neutrophils % 20.9 L Lymphocytes % 36.3 Monocytes % 11.2 H Eosinophils % 30.6 H Basophils % 0.4 Nucleated Red Blood Cells % 0.0 Neutrophils # 1.4 L Lymphocytes # 2.4 Monocytes # 0.8 Eosinophils # 2.1 H Basophils # 0.0 Nucleated Red Blood Cells # 0.0 Sodium Level 134 L Potassium Level 4.7 Chloride Level 102 Carbon Dioxide Level 19 L Anion Gap 18 H Blood Urea Nitrogen 8 Creatinine 0.65 Glucose Level 64 #L Calcium Level 7.7 L Medications Medications Current Medications Diphenhydramine HCl (Benadryl) 25 mg Q6H PRN IV ITCHING Last administered on 20:31; Admin Dose 25 MG; Start 05/03/16 at 23:30 Morphine Sulfate (morphine) 2 mg Q4H PRN IV PAIN Last administered on 15:03; Admin Dose 2 MG; Start 05/03/16 at 23:30 Enoxaparin Sodium (Lovenox) 40 mg DAILY SC Last administered on 05/11/16 12:33 ; Admin Dose 40 MG; Start 05/04/16 at 09:00 Acetaminophen (Tylenol Tab) 650 mg Q4H PRN PO PAIN AND OR ELEVATED TEMP Last administered on 05/11/16 15:16; Admin Dose 650 MG; Start 05/03/16 at 23:30 Darunavir (Prezista) 800 mg DAILY PO Last administered on 05/11/16 12:27; Admin Dose 800 MG; Start 05/04/16 at 09:00 Acetaminophen/ Hydrocodone Bitart ([place] (5/325)) 1 tab Q4H PRN PO PAIN Last administered on 05/10/16 06:17; Admin Dose 1 TAB; Start 05/03/16 at 23:30 Multivitamins Therapeutic (Theragran) 1 tab DAILY PO Last administered on 12:26; Admin Dose 1 TAB; Start 05/04/16 at 09:00 Nystatin (Nystatin Susp) 5 ml QID PO Last administered on 05/11/16 12:27; Admin Dose 5 ML; Start 05/04/16 at 09:00 Azithromycin (Zithromax) 1,200 mg We@09 PO Last administered on 05/11/16 13:23 ; Admin Dose 1,200 MG; Start 05/04/16 at 09:00 Elvitegravir/ Cobicis/Emtricit/ Tenof (Stribild Tablet) 1 each DAILY PO Last administered on 05/11/16 12:27; Admin Dose 1 EACH; Start 05/04/16 at 09:00 Ibuprofen (Motrin) 400 mg Q6H PRN PO PAIN OR TEMP ABOVE 38C Last administered on 05/04/16 12:07; Admin Dose 400 MG; Start 05/04/16 at 11:30 Famotidine (Pepcid) 20 mg DAILY PO Last administered on 05/11/16 12:26; Admin Dose 20 MG; Start 05/04/16 at 12:30 Cyanocobalamin (Vitamin B12 Inj) 1,000 mcg Q28D IM Last administered on 09:45; Admin Dose 1,000 MCG; Start 05/04/16 at 09:00 Loratadine 10 mg 10 mg DAILY PO Last administered on 05/11/16 12:26; Admin Dose 10 MG; Start 05/06/16 at 09:00 Imipenem/ Cilastatin Sodium 100 ml @ 100 mls/hr Q6 IVPB Last administered on 18:04; Admin Dose 100 MLS/HR; Start 05/05/16 at 18:00 Sodium Chloride (NS) 1,000 ml @ 75 mls/hr [id number] IV Last administered on 05/11 12:33; Admin Dose 75 MLS/HR; Start 05/05/16 at 23:30 Aspirin (Aspirin) 325 mg DAILY PO Last administered on 05/11/16 12:27; Admin Dose 325 MG; Start 05/07/16 at 09:00 Eye Lubricant (Artificial Tears Oph) 2 drop QID BOTH EYES Last administered on 05/11/16 16:39; Admin Dose 2 DROP; Start 05/06/16 at 17:00 Diltiazem HCl 120 mg 120 mg DAILY PO Last administered on 05/11/16 12:26; Admin Dose 120 MG; Start 05/07/16 at 09:00 Vancomycin HCl/ Sodium Chloride (Vancocin/NS) 250 ml @ 83.333 mls/ hr Q12H IVPB Last administered on 05/11/16 18:03; Admin Dose 83.333 MLS/HR; Start at 18:00 Trimethoprim/ Sulfamethoxazole 1 tab 1 tab SuTuTh@09 PO Last administered on 09:52; Admin Dose 1 TAB; Start 05/08/16 at 09:00 Caspofungin 50 mg/ Sodium Chloride 250 ml @ 250 mls/hr Q24H IVPB Last administered on 05/11/16 16:39; Admin Dose 250 MLS/HR; Start 05/09/16 at 16:00 Aztreonam/Sodium Chloride (Azactam/NS) 100 ml @ 100 mls/hr Q8 IVPB Last administered on 05/11/16 13:23; Admin Dose 100 MLS/HR; Start 05/10/16 at 14:30 Valacyclovir HCl (Valtrex) 1,000 mg TID PO Last administered on 05/11/16 13:23 ; Admin Dose 1,000 MG; Start 05/11/16 at 13:00; Stop 05/18/16 at 12:59 AAKASH MITCHELL May 11, 2016 18:32
[2016-05-11] MEDS: DIPHENHYDRAMINE 50 MG INJ IV PRN (22:56)
[2016-05-12] VITALS (11 sets, daily range): BP systolic 113–149; BP diastolic 69–91; PULSE 82–105; RESP 18–21
[2016-05-12] MEDS: ACETAMINOPHEN 325 MG TAB PO PRN ×2 (01:54→23:09)
[2016-05-12] MEDS: SOD CHLORIDE 0.9% 1,000 ML IV SCH ×2 (02:21→15:30)
[2016-05-12] MEDS: morphine 2 MG INJ IV PRN ×4 (03:35→21:46)
[2016-05-12] MEDS: AZTREONAM 2 GM in SOD CHLORIDE 0.9% 100 ML IVPB SCH ×3 (05:10→23:23)
[2016-05-12] MEDS: IMIPENEM-CILAST 500 MG/NS 100 ML IVPB SCH ×4 (05:10→23:51)
[2016-05-12] MEDS: VANCOMYCIN 1.5 GM in SOD CHLORIDE 0.9% 250 ML IVPB SCH ×2 (06:16→18:48)
[2016-05-12 07:33] LABS: ADD SCAN DIFF NO
[2016-05-12 07:44] LABS: HEMATOCRIT 35.6 % (42.0-52.0); HEMOGLOBIN 12.3 g/dl (14.0-18.0); MEAN CORPUSCULAR HEMOGLOBIN 29.1 pg (29.0-33.0); MEAN CORPUSCULAR HGB CONC 34.6 g/dl (32.0-37.0); MEAN CORPUSCULAR VOLUME 84.4 fl (82.0-101.0); MEAN PLATELET VOLUME 9.9 fl (7.4-10.4); PLATELET COUNT 237 10^3/UL (140-415); RED BLOOD COUNT 4.22 10^6/ul (4.70-6.10); RED CELL DISTRIBUTION WIDTH 15.4 % (11.5-14.5); WHITE BLOOD COUNT 5.2 10^3/ul (4.8-10.8)
[2016-05-12 07:50] LABS: POTASSIUM 3.2 mmol/L (3.5-5.1)
[2016-05-12 07:53] LABS: CREATININE 0.7 mg/dl (0.61-1.24)
[2016-05-12 07:54] LABS: CALCIUM 7.9 mg/dl (8.4-10.2)
[2016-05-12] MEDS: ELVITEGR/COBICIST/EMTRIC/TENOF 1 EACH TABLET PO SCH ×2 (09:00→12:37)
[2016-05-12] MEDS: ARTIFICIAL TEARS 15 ML OPH BOTH EYES SCH ×4 (09:57→21:47)
[2016-05-12] MEDS: LORATADINE 10 MG TAB PO SCH (09:58)
[2016-05-12] MEDS: MULTIVITAMINS THERAPEUTIC TAB PO SCH (09:58)
[2016-05-12] MEDS: DILTIAZEM 60 MG TAB PO SCH (09:58)
[2016-05-12] MEDS: DARUNAVIR ETHANOLATE 800 MG TABLET PO SCH (09:58)
[2016-05-12] MEDS: FAMOTIDINE 20 MG TAB PO SCH (09:58)
[2016-05-12] MEDS: ASPIRIN 325 MG TAB PO SCH (09:58)
[2016-05-12] MEDS: VALACYCLOVIR 500 MG TAB PO SCH ×3 (09:59→21:47)
[2016-05-12] MEDS: NYSTATIN SUSP 5 ML CUP PO SCH ×4 (09:59→17:19)
[2016-05-12] MEDS: ENOXAPARIN 40 MG/0.4 ML SYG SC SCH (10:10)
[2016-05-12] MEDS: TRIMETHOPRIM/SULFAMETHOX (DS) TAB PO SCH (10:13)
[2016-05-12 10:48] LABS: EOSINOPHILS # 2.2 10^3/ul (0.0-0.5); LYMPHOCYTES # 1.2 10^3/ul (0.8-2.9); MONOCYTE # 0.5 10^3/ul (0.3-0.9)
--- NOTE | 2016-05-12 15:02 | CONS ---
Date/Time of Note Date/Time of Note DATE: 05/12/16 TIME: 15:01 Assessment/Plan Assessment/Plan Chief Complaint/Hosp Course - GNR bacteremia 05/03/16. CT of neck/chest/abd/pel shows no occult infection. - recurrent neutropenic fever, infectious process vs. immune reconstitution inflammatory response - advanced AIDS (CD4<20, viral load 166,544 copies in 04/21/2016 & repeat CD4 37 on 05/07/2016), was non-compliant with medications. Restarted on Stribild and darunavir on 04/23/2016 - neutropenia s/p BMBx, no e/o infections or malignancy at this time. CMV IHC negative, CMV PCR in serum was <200, cocci and crypto negative, QTB gold negative - h/o cough in 03/2016. CXR showed overinflated lungs, CT showed benign appearing sub-centimeter nodule seen at the bilateral lung bases - h/o E. coli in urine, likely colonization. completed treatment for this - LUE weakness and pain due to tear of rotator cuff muscles and bicep tendon anchor - L cervical and supraclavicular lymphadenopathy probably due to HIV infection - h/o thrush, resolved - hyperpigmented lesions on b/l LE x several months according to Pt - pruritis - improving - eosinophilia - Hx prostatitis - PSA WNL - poss HSV labialis recommendations: - - Continue empiric vancomycin (05/04/16-), imipenem (05/05/16-) and continue aztreonam (05/10/16-) for double GN coverage. - F/u final C&S of GNR bacteremia (05/03/16)-- spoke to Cecily Mcintosh who said specimen was sent to reference lab yesterday and results are not yet back - Continue empiric Caspofungin (05/09/16-); F/u procalcitonin and Beta D Glucan ( pending) - F/u crowley cultures (repeat blood and urine cultures 05/07/16 negative to date, UA negative), AFB blood culture (pending), AFB stool (pending) - eosinophilia and pruritis: F/u stool O&P (pending). - Continue Bactrim three times a week for a possibility of atovaquone-related rash - Continue Stribild (tenofovir/emtricitabine/elvitaegravir/cobicistat) and darunavir 800mg (darunavir dosed at 800mg to simulate Prezcobix (darunavir 800mg /cobicistat 150mg) - Continue azithromycin for MAC prophylaxis - Continue Valtrex 1000 mg TID x 7 days (05/11/16-) for poss HSV labialis - DC nystatin - Ordered WBC scan to r/o infectious process d/t persistent fevers - Consider repeat TTE to r/o vegetation d/t persistent fevers and GN bacteremia - Consider Surgical consult for biopsy of left supraclavicular lymph nodes - Consider Psych eval - Management d/w pt's RN and later with [employer] Mikie - Above d/w Dr. Narayanan Problems: Consultation Date/Type/Reason Admit Date/Time May 03, 2016 at 19:51 Initial Consult Date 05/06/16 Type of Consultation: Infectious Disease Referring Provider: NAKIA LUNA MD 24 HR Interval Summary Free Text/Dictation Tmax 101.2; "PER RADIOLOGY ORDER FOR LEFT SUPRACLAVICULAR LYMPH NODE BIOPSY WILL NOT BE DONE IN RADIOLOGY BECAUSE IT IS TOO CLOSE TO BLOOD VESSELS AND TOO SMALL" per Nursing staff; had transient Afib/Aflutter earlier but now back in SR ; refusing Nystatin per THOMAS Foley. C/o nausea and no appetite past few days since starting new abx; Had emesis yesterday. C/o bilateral cervical LN pain that is sharp rating as high as 9/10. Reports mild SOB and dizziness when getting OOB. Denies CP, abd pain, diarrhea, dysuria. Has same LUE pain and weakness. Exam/Review of Systems Vital Signs Vitals Vital Signs Date Time Temp Pulse Resp B/P Pulse Ox O2 Delivery O2 Flow Rate FiO2 05/12/16 12:45 99.4 05/12/16 12:05 105 05/12/16 11:30 19 113/69 95 Intake and Output 05/11/16 05/11/16 05/12/16 15:00 23:00 07:00 Intake Total 1100 ml 1750 ml 2150 ml Output Total 1600 ml 1400 ml Balance 1100 ml 150 ml 750 ml Exam Constitutional: alert, oriented, well developed Head: atraumatic, normocephalic ENMT: mucosa pink and moist, other (lower lip with scab) Neck: supple, No jvd Respiratory: clear to auscultation, normal air movement Cardiovascular: nl pulses, regular rate and rhythm Gastrointestinal: non-tender, soft Musculoskeletal: nl gait and stance Extremities: normal pulses, No clubbing, No cyanosis, No edema Neurological: focal weakness (LUE), nl mental status, nl speech Skin: nl turgor, rash or lesions (mild erythroderma of the face) Lymph: enlarged (bilateral cervical lymph nodes; TTP) Results Result Diagram: 05/12/16 0654 05/12/16 0654 Results 24 hrs Laboratory Tests Test 05/12/16 06:54 White Blood Count 5.2 # Red Blood Count 4.22 L Hemoglobin 12.3 L Hematocrit 35.6 L Mean Corpuscular Volume 84.4 Mean Corpuscular Hemoglobin 29.1 Mean Corpuscular Hemoglobin Concent 34.6 Red Cell Distribution Width 15.4 H Platelet Count 237 # Mean Platelet Volume 9.9 Neutrophils % 20.0 L Band Neutrophils % 3.0 Lymphocytes % 24.0 Monocytes % 10.0 Neutrophils # 1.0 L Lymphocytes # 1.2 Monocytes # 0.5 Eosinophils # 2.2 H Sodium Level 136 Potassium Level 3.2 L Chloride Level 103 Carbon Dioxide Level 23 Anion Gap 13 Blood Urea Nitrogen 9 Creatinine 0.70 Glucose Level 72 Calcium Level 7.9 L Medications Medications Current Medications Diphenhydramine HCl (Benadryl) 25 mg Q6H PRN IV ITCHING Last administered on 22:56; Admin Dose 25 MG; Start 05/03/16 at 23:30 Morphine Sulfate (morphine) 2 mg Q4H PRN IV PAIN Last administered on 10:00; Admin Dose 2 MG; Start 05/03/16 at 23:30 Enoxaparin Sodium (Lovenox) 40 mg DAILY SC Last administered on 05/12/16 10:10 ; Admin Dose 40 MG; Start 05/04/16 at 09:00 Acetaminophen (Tylenol Tab) 650 mg Q4H PRN PO PAIN AND OR ELEVATED TEMP Last administered on 05/12/16 01:54; Admin Dose 650 MG; Start 05/03/16 at 23:30 Darunavir (Prezista) 800 mg DAILY PO Last administered on 05/12/16 09:58; Admin Dose 800 MG; Start 05/04/16 at 09:00 Acetaminophen/ Hydrocodone Bitart ([place] (5/325)) 1 tab Q4H PRN PO PAIN Last administered on 05/10/16 06:17; Admin Dose 1 TAB; Start 05/03/16 at 23:30 Multivitamins Therapeutic (Theragran) 1 tab DAILY PO Last administered on 09:58; Admin Dose 1 TAB; Start 05/04/16 at 09:00 Nystatin (Nystatin Susp) 5 ml QID PO Last administered on 05/12/16 09:59; Admin Dose 5 ML; Start 05/04/16 at 09:00 Azithromycin (Zithromax) 1,200 mg We@09 PO Last administered on 05/11/16 13:23 ; Admin Dose 1,200 MG; Start 05/04/16 at 09:00 Elvitegravir/ Cobicis/Emtricit/ Tenof (Stribild Tablet) 1 each DAILY PO Last administered on 05/12/16 12:37; Admin Dose 1 EACH; Start 05/04/16 at 09:00 Ibuprofen (Motrin) 400 mg Q6H PRN PO PAIN OR TEMP ABOVE 38C Last administered on 05/04/16 12:07; Admin Dose 400 MG; Start 05/04/16 at 11:30 Famotidine (Pepcid) 20 mg DAILY PO Last administered on 05/12/16 09:58; Admin Dose 20 MG; Start 05/04/16 at 12:30 Cyanocobalamin (Vitamin B12 Inj) 1,000 mcg Q28D IM Last administered on 09:45; Admin Dose 1,000 MCG; Start 05/04/16 at 09:00 Loratadine 10 mg 10 mg DAILY PO Last administered on 05/12/16 09:58; Admin Dose 10 MG; Start 05/06/16 at 09:00 Imipenem/ Cilastatin Sodium 100 ml @ 100 mls/hr Q6 IVPB Last administered on 12:32; Admin Dose 100 MLS/HR; Start 05/05/16 at 18:00 Sodium Chloride (NS) 1,000 ml @ 75 mls/hr [id number] IV Last administered on 05/12 02:21; Admin Dose 75 MLS/HR; Start 05/05/16 at 23:30 Aspirin (Aspirin) 325 mg DAILY PO Last administered on 05/12/16 09:58; Admin Dose 325 MG; Start 05/07/16 at 09:00 Eye Lubricant (Artificial Tears Oph) 2 drop QID BOTH EYES Last administered on 05/12/16 12:32; Admin Dose 2 DROP; Start 05/06/16 at 17:00 Diltiazem HCl 120 mg 120 mg DAILY PO Last administered on 05/12/16 09:58; Admin Dose 120 MG; Start 05/07/16 at 09:00 Vancomycin HCl/ Sodium Chloride (Vancocin/NS) 250 ml @ 83.333 mls/ hr Q12H IVPB Last administered on 05/12/16 06:16; Admin Dose 83.333 MLS/HR; Start at 18:00 Trimethoprim/ Sulfamethoxazole 1 tab 1 tab SuTuTh@09 PO Last administered on 10:13; Admin Dose 1 TAB; Start 05/08/16 at 09:00 Caspofungin 50 mg/ Sodium Chloride 250 ml @ 250 mls/hr Q24H IVPB Last administered on 05/11/16 16:39; Admin Dose 250 MLS/HR; Start 05/09/16 at 16:00 Aztreonam/Sodium Chloride (Azactam/NS) 100 ml @ 100 mls/hr Q8 IVPB Last administered on 05/12/16 14:31; Admin Dose 100 MLS/HR; Start 05/10/16 at 14:30 Valacyclovir HCl (Valtrex) 1,000 mg TID PO Last administered on 05/12/16 12:36 ; Admin Dose 1,000 MG; Start 05/11/16 at 13:00; Stop 05/18/16 at 12:59 Miscellaneous Information (*Rx Drug Level Order Reminder*) VANCOMYCIN TROUGH TODAY... ONCE ONCE XX ; Start 05/12/16 at 17:00; Stop 05/12/16 at 17:[address] neck, chest, abd and pelvis 05/07/16: CT neck: Small bilateral cervical lymph nodes are seen. There is a mildly prominent cluster of small left supraclavicular lymph nodes. No neck abscess identified. CT chest: Mildly prominent left axillary lymph nodes are identified with the largest measuring 1 cm short axis. Small to moderate right and small left pleural effusions are new from prior. Bilateral lower lobe atelectasis/infiltrates are identified. Sub centimeter bilateral lower lobe nodules. Recommend interval follow up in 6 months. Small pericardial effusion. CT abdomen and pelvis: No intra-abdominal abscess identified. No evidence of bulky lymphadenopathy. Nonobstructing 5 mm right lower renal pole stone. CXR 05/03/16: 1. Mild cardiomegaly. 2. No evidence of active cardiopulmonary disease. stable chest compared to . 3. Small pulmonary nodules described on the CT report dated 04/18/2016 are not visualized on the current chest x-ray which is less sensitive in the detection of small pulmonary nodules. AVERY SHAHID NP May 12, 2016 15:01 CT abdomen and pelvis: No intra-abdominal abscess identified. No evidence of bulky lymphadenopathy. Nonobstructing 5 mm right lower renal pole stone. CXR 05/03/16: 1. Mild cardiomegaly. 2. No evidence of active cardiopulmonary disease. stable chest compared to . 3. Small pulmonary nodules described on the CT report dated 04/18/2016 are not visualized on the current chest x-ray which is less sensitive in the detection of small pulmonary nodules. AVERY SHAHID NP May 12, 2016 15:01
[2016-05-12] MEDS ORDERED: POTASSIUM CHLORIDE 20 MEQ POWDER FOR ORAL SOLN PO ONE (15:30)
--- NOTE | 2016-05-12 16:17 | CONS ---
Date/Time of Note Date/Time of Note DATE: 05/12/16 TIME: 16:14 Consult Date/Type/Reason Admit Date/Time May 03, 2016 at 19:51 Initial Consult Date 05/06/16 Type of Consultation: Card Ordering Provider: NAKIA LUNA MD Objective Vital Signs Date Time Temp Pulse Resp B/P Pulse Ox O2 Delivery O2 Flow Rate FiO2 05/12/16 16:02 83 05/12/16 15:39 99.3 19 122/71 97 Intake and Output 05/11/16 05/11/16 05/12/16 15:00 23:00 07:00 Intake Total 1100 ml 1750 ml 2150 ml Output Total 1600 ml 1400 ml Balance 1100 ml 150 ml 750 ml Results/Medications Result Diagram: 05/12/16 0654 05/12/16 0654 Results 24 hrs Laboratory Tests Test 05/12/16 06:54 White Blood Count 5.2 # Red Blood Count 4.22 L Hemoglobin 12.3 L Hematocrit 35.6 L Mean Corpuscular Volume 84.4 Mean Corpuscular Hemoglobin 29.1 Mean Corpuscular Hemoglobin Concent 34.6 Red Cell Distribution Width 15.4 H Platelet Count 237 # Mean Platelet Volume 9.9 Neutrophils % 20.0 L Band Neutrophils % 3.0 Lymphocytes % 24.0 Monocytes % 10.0 Neutrophils # 1.0 L Lymphocytes # 1.2 Monocytes # 0.5 Eosinophils # 2.2 H Sodium Level 136 Potassium Level 3.2 L Chloride Level 103 Carbon Dioxide Level 23 Anion Gap 13 Blood Urea Nitrogen 9 Creatinine 0.70 Glucose Level 72 Calcium Level 7.9 L Medications Current Medications Diphenhydramine HCl (Benadryl) 25 mg Q6H PRN IV ITCHING Last administered on 22:56; Admin Dose 25 MG; Start 05/03/16 at 23:30 Morphine Sulfate (morphine) 2 mg Q4H PRN IV PAIN Last administered on 10:00; Admin Dose 2 MG; Start 05/03/16 at 23:30 Enoxaparin Sodium (Lovenox) 40 mg DAILY SC Last administered on 05/12/16 10:10 ; Admin Dose 40 MG; Start 05/04/16 at 09:00 Acetaminophen (Tylenol Tab) 650 mg Q4H PRN PO PAIN AND OR ELEVATED TEMP Last administered on 05/12/16 01:54; Admin Dose 650 MG; Start 05/03/16 at 23:30 Darunavir (Prezista) 800 mg DAILY PO Last administered on 05/12/16 09:58; Admin Dose 800 MG; Start 05/04/16 at 09:00 Acetaminophen/ Hydrocodone Bitart ([place] (5/325)) 1 tab Q4H PRN PO PAIN Last administered on 05/10/16 06:17; Admin Dose 1 TAB; Start 05/03/16 at 23:30 Multivitamins Therapeutic (Theragran) 1 tab DAILY PO Last administered on 09:58; Admin Dose 1 TAB; Start 05/04/16 at 09:00 Nystatin (Nystatin Susp) 5 ml QID PO Last administered on 05/12/16 09:59; Admin Dose 5 ML; Start 05/04/16 at 09:00 Azithromycin (Zithromax) 1,200 mg We@09 PO Last administered on 05/11/16 13:23 ; Admin Dose 1,200 MG; Start 05/04/16 at 09:00 Elvitegravir/ Cobicis/Emtricit/ Tenof (Stribild Tablet) 1 each DAILY PO Last administered on 05/12/16 12:37; Admin Dose 1 EACH; Start 05/04/16 at 09:00 Ibuprofen (Motrin) 400 mg Q6H PRN PO PAIN OR TEMP ABOVE 38C Last administered on 05/04/16 12:07; Admin Dose 400 MG; Start 05/04/16 at 11:30 Famotidine (Pepcid) 20 mg DAILY PO Last administered on 05/12/16 09:58; Admin Dose 20 MG; Start 05/04/16 at 12:30 Cyanocobalamin (Vitamin B12 Inj) 1,000 mcg Q28D IM Last administered on 09:45; Admin Dose 1,000 MCG; Start 05/04/16 at 09:00 Loratadine 10 mg 10 mg DAILY PO Last administered on 05/12/16 09:58; Admin Dose 10 MG; Start 05/06/16 at 09:00 Imipenem/ Cilastatin Sodium 100 ml @ 100 mls/hr Q6 IVPB Last administered on 3 /23/17at 12:32; Admin Dose 100 MLS/HR; Start 05/05/16 at 18:00 Sodium Chloride (NS) 1,000 ml @ 75 mls/hr [id number] IV Last administered on 05/12 02:21; Admin Dose 75 MLS/HR; Start 05/05/16 at 23:30 Aspirin (Aspirin) 325 mg DAILY PO Last administered on 05/12/16 09:58; Admin Dose 325 MG; Start 05/07/16 at 09:00 Eye Lubricant (Artificial Tears Oph) 2 drop QID BOTH EYES Last administered on 05/12/16 12:32; Admin Dose 2 DROP; Start 05/06/16 at 17:00 Diltiazem HCl 120 mg 120 mg DAILY PO Last administered on 05/12/16 09:58; Admin Dose 120 MG; Start 05/07/16 at 09:00 Vancomycin HCl/ Sodium Chloride (Vancocin/NS) 250 ml @ 83.333 mls/ hr Q12H IVPB Last administered on 05/12/16 06:16; Admin Dose 83.333 MLS/HR; Start at 18:00 Trimethoprim/ Sulfamethoxazole 1 tab 1 tab SuTuTh@09 PO Last administered on 10:13; Admin Dose 1 TAB; Start 05/08/16 at 09:00 Caspofungin 50 mg/ Sodium Chloride 250 ml @ 250 mls/hr Q24H IVPB Last administered on 05/11/16 16:39; Admin Dose 250 MLS/HR; Start 05/09/16 at 16:00 Aztreonam/Sodium Chloride (Azactam/NS) 100 ml @ 100 mls/hr Q8 IVPB Last administered on 05/12/16 14:31; Admin Dose 100 MLS/HR; Start 05/10/16 at 14:30 Valacyclovir HCl (Valtrex) 1,000 mg TID PO Last administered on 05/12/16 12:36 ; Admin Dose 1,000 MG; Start 05/11/16 at 13:00; Stop 05/18/16 at 12:59 Miscellaneous Information (*Rx Drug Level Order Reminder*) VANCOMYCIN TROUGH TODAY... ONCE ONCE XX ; Start 05/12/16 at 17:00; Stop 05/12/16 at 17:01 Assessment/Plan Chief Complaint/Hosp Course Patient iwth 66 year old M with AIDS recently started on meds, Esophagitis, HTN , who under went new onset Afib with RVR, now going at 150s but asymptomatic. His Cr went up from 0.9 to 1.5. No CP or SOB Problems: Additional Assessment/Plan Pt stable on meds doing fine plan per MUSA LANDRUM MD May 12, 2016 16:17
[2016-05-12] MEDS: CASPOFUNGIN 50 MG in SOD CHLORIDE 0.9% 250 ML IVPB SCH (16:20)
--- NOTE | 2016-05-12 17:11 | PN ---
Date/Time of Note Date/Time of Note DATE: 05/12/16 TIME: 17:03 Assessment/Plan VTE Prophylaxis VTE Prophylaxis Intervention: SCD's Lines/Catheters IV Catheter Type (from [facility]): Saline Lock Urinary Cath still in place: No Assessment/Plan Assessment/Plan -Sepsis with gram-negative rods bacteremia. - per Dr. Narayanan is following infectious disease consultation. Continue antibiotics per ID. - Pending WBC scan. - Pending biopsy of left supraclavicular lymph nodes - Dr Whelan recommended surgery consult -Neutropenic fever. Continue neutropenic precautions. Continue broad spectrum antibiotics. Follow up on urine and blood cultures. -Advanced AIDS. Continue the patient on Stribild, darunavir and Mepron. Continue azithromycin. - Afib with RVR, Dr. Silver is following in cardiology consultation. Continue Cardizem. - Medical non- compliance. - Hypokalemia- replet K. AM LABS Sequential compression devices for deep venous thrombosis prophylaxis and Pepcid for peptic ulcer disease prophylaxis. Further recommendations based on clinical course. Dw ID consult- will order 2-D echo. Plan of care discussed with Dr. Walden. Subjective 24 Hr Interval Summary Constitutional: chills, febrile Eyes: no complaints ENT: no complaints Respiratory: no complaints Cardiovascular: no complaints Gastrointestinal: no complaints Genitourinary: no complaints Musculoskeletal: no complaints Skin: no complaints Neurologic: no complaints Endocrine: no complaints Lymphatic: no complaints Exam/Review of Systems Vital Signs Vitals Vital Signs Date Time Temp Pulse Resp B/P Pulse Ox O2 Delivery O2 Flow Rate FiO2 05/12/16 16:02 83 05/12/16 15:39 99.3 19 122/71 97 Intake and Output 05/11/16 05/11/16 05/12/16 15:00 23:00 07:00 Intake Total 1100 ml 1750 ml 2150 ml Output Total 1600 ml 1400 ml Balance 1100 ml 150 ml 750 ml Exam Constitutional: alert, oriented, well developed Psych: no complaints Head: atraumatic Eyes: EOMI, nl sclera ENMT: nl external ears & nose Neck: non-tender Respiratory: clear to auscultation Cardiovascular: nl pulses Musculoskeletal: nl extremities to inspection Neurological: nl mental status, nl speech Skin: nl turgor Lymph: other (bilateral cervical lymph nodes- tender to palpate) Results Result Diagram: 05/12/16 0654 05/12/16 0654 Results 24 hrs Laboratory Tests Test 05/12/16 06:54 White Blood Count 5.2 # Red Blood Count 4.22 L Hemoglobin 12.3 L Hematocrit 35.6 L Mean Corpuscular Volume 84.4 Mean Corpuscular Hemoglobin 29.1 Mean Corpuscular Hemoglobin Concent 34.6 Red Cell Distribution Width 15.4 H Platelet Count 237 # Mean Platelet Volume 9.9 Neutrophils % 20.0 L Band Neutrophils % 3.0 Lymphocytes % 24.0 Monocytes % 10.0 Neutrophils # 1.0 L Lymphocytes # 1.2 Monocytes # 0.5 Eosinophils # 2.2 H Sodium Level 136 Potassium Level 3.2 L Chloride Level 103 Carbon Dioxide Level 23 Anion Gap 13 Blood Urea Nitrogen 9 Creatinine 0.70 Glucose Level 72 Calcium Level 7.9 L Medications Medications Current Medications Diphenhydramine HCl (Benadryl) 25 mg Q6H PRN IV ITCHING Last administered on 22:56; Admin Dose 25 MG; Start 05/03/16 at 23:30 Morphine Sulfate (morphine) 2 mg Q4H PRN IV PAIN Last administered on 16:43; Admin Dose 2 MG; Start 05/03/16 at 23:30 Enoxaparin Sodium (Lovenox) 40 mg DAILY SC Last administered on 05/12/16 10:10 ; Admin Dose 40 MG; Start 05/04/16 at 09:00 Acetaminophen (Tylenol Tab) 650 mg Q4H PRN PO PAIN AND OR ELEVATED TEMP Last administered on 05/12/16 01:54; Admin Dose 650 MG; Start 05/03/16 at 23:30 Darunavir (Prezista) 800 mg DAILY PO Last administered on 05/12/16 09:58; Admin Dose 800 MG; Start 05/04/16 at 09:00 Acetaminophen/ Hydrocodone Bitart ([place] (5/325)) 1 tab Q4H PRN PO PAIN Last administered on 05/10/16 06:17; Admin Dose 1 TAB; Start 05/03/16 at 23:30 Multivitamins Therapeutic (Theragran) 1 tab DAILY PO Last administered on 09:58; Admin Dose 1 TAB; Start 05/04/16 at 09:00 Nystatin (Nystatin Susp) 5 ml QID PO Last administered on 05/12/16 09:59; Admin Dose 5 ML; Start 05/04/16 at 09:00 Azithromycin (Zithromax) 1,200 mg We@09 PO Last administered on 05/11/16 13:23 ; Admin Dose 1,200 MG; Start 05/04/16 at 09:00 Elvitegravir/ Cobicis/Emtricit/ Tenof (Stribild Tablet) 1 each DAILY PO Last administered on 05/12/16 12:37; Admin Dose 1 EACH; Start 05/04/16 at 09:00 Ibuprofen (Motrin) 400 mg Q6H PRN PO PAIN OR TEMP ABOVE 38C Last administered on 05/04/16 12:07; Admin Dose 400 MG; Start 05/04/16 at 11:30 Famotidine (Pepcid) 20 mg DAILY PO Last administered on 05/12/16 09:58; Admin Dose 20 MG; Start 05/04/16 at 12:30 Cyanocobalamin (Vitamin B12 Inj) 1,000 mcg Q28D IM Last administered on 09:45; Admin Dose 1,000 MCG; Start 05/04/16 at 09:00 Loratadine 10 mg 10 mg DAILY PO Last administered on 05/12/16 09:58; Admin Dose 10 MG; Start 05/06/16 at 09:00 Imipenem/ Cilastatin Sodium 100 ml @ 100 mls/hr Q6 IVPB Last administered on 12:32; Admin Dose 100 MLS/HR; Start 05/05/16 at 18:00 Sodium Chloride (NS) 1,000 ml @ 75 mls/hr [id number] IV Last administered on 05/12 02:21; Admin Dose 75 MLS/HR; Start 05/05/16 at 23:30 Aspirin (Aspirin) 325 mg DAILY PO Last administered on 05/12/16 09:58; Admin Dose 325 MG; Start 05/07/16 at 09:00 Eye Lubricant (Artificial Tears Oph) 2 drop QID BOTH EYES Last administered on 05/12/16 12:32; Admin Dose 2 DROP; Start 05/06/16 at 17:00 Diltiazem HCl 120 mg 120 mg DAILY PO Last administered on 05/12/16 09:58; Admin Dose 120 MG; Start 05/07/16 at 09:00 Vancomycin HCl/ Sodium Chloride (Vancocin/NS) 250 ml @ 83.333 mls/ hr Q12H IVPB Last administered on 05/12/16 06:16; Admin Dose 83.333 MLS/HR; Start at 18:00 Trimethoprim/ Sulfamethoxazole 1 tab 1 tab SuTuTh@09 PO Last administered on 10:13; Admin Dose 1 TAB; Start 05/08/16 at 09:00 Caspofungin 50 mg/ Sodium Chloride 250 ml @ 250 mls/hr Q24H IVPB Last administered on 05/12/16 16:20; Admin Dose 250 MLS/HR; Start 05/09/16 at 16:00 Aztreonam/Sodium Chloride (Azactam/NS) 100 ml @ 100 mls/hr Q8 IVPB Last administered on 05/12/16 14:31; Admin Dose 100 MLS/HR; Start 05/10/16 at 14:30 Valacyclovir HCl (Valtrex) 1,000 mg TID PO Last administered on 05/12/16 12:36 ; Admin Dose 1,000 MG; Start 05/11/16 at 13:00; Stop 05/18/16 at 12:59 Miscellaneous Information (*Rx Drug Level Order Reminder*) VANCOMYCIN TROUGH TODAY... ONCE ONCE XX ; Start 05/12/16 at 17:00; Stop 05/12/16 at 17:01 MAXIME MCKEON May 12, 2016 17:11
[2016-05-12] MEDS: DIPHENHYDRAMINE 50 MG INJ IV PRN (21:55)
[2016-05-12] MEDS: IBUPROFEN 400 MG TAB PO PRN (23:09)
[2016-05-13] VITALS (12 sets, daily range): BP systolic 93–156; BP diastolic 54–91; PULSE 71–101; RESP 20–21
[2016-05-13] MEDS: AZTREONAM 2 GM in SOD CHLORIDE 0.9% 100 ML IVPB SCH ×3 (05:11→22:06)
[2016-05-13] MEDS: SOD CHLORIDE 0.9% 1,000 ML IV SCH ×2 (05:11→18:10)
[2016-05-13] MEDS: VANCOMYCIN 1.5 GM in SOD CHLORIDE 0.9% 250 ML IVPB SCH ×2 (05:11→18:24)
[2016-05-13] MEDS: IMIPENEM-CILAST 500 MG/NS 100 ML IVPB SCH ×3 (05:58→18:24)
[2016-05-13 09:11] LABS: ADD SCAN DIFF NO
[2016-05-13 09:15] LABS: ABNORMAL IP MESSAGE 1; HEMATOCRIT 32.4 % (42.0-52.0); HEMOGLOBIN 11.3 g/dl (14.0-18.0); MEAN CORPUSCULAR HEMOGLOBIN 28.8 pg (29.0-33.0); MEAN CORPUSCULAR HGB CONC 34.9 g/dl (32.0-37.0); MEAN CORPUSCULAR VOLUME 82.4 fl (82.0-101.0); MEAN PLATELET VOLUME 9.4 fl (7.4-10.4); PLATELET COUNT 241 10^3/UL (140-415); RED BLOOD COUNT 3.93 10^6/ul (4.70-6.10); WHITE BLOOD COUNT 5.8 10^3/ul (4.8-10.8)
[2016-05-13 09:33] LABS: POTASSIUM 3.4 mmol/L (3.5-5.1)
[2016-05-13 09:35] LABS: CREATININE 0.64 mg/dl (0.61-1.24)
[2016-05-13 09:36] LABS: CALCIUM 7.7 mg/dl (8.4-10.2)
[2016-05-13] MEDS: ARTIFICIAL TEARS 15 ML OPH BOTH EYES SCH ×4 (09:53→22:06)
[2016-05-13] MEDS: MULTIVITAMINS THERAPEUTIC TAB PO SCH (09:54)
[2016-05-13] MEDS: VALACYCLOVIR 500 MG TAB PO SCH ×3 (09:54→22:05)
[2016-05-13] MEDS: FAMOTIDINE 20 MG TAB PO SCH (09:54)
[2016-05-13] MEDS: ASPIRIN 325 MG TAB PO SCH (09:54)
[2016-05-13] MEDS: LORATADINE 10 MG TAB PO SCH (09:54)
[2016-05-13] MEDS: ELVITEGR/COBICIST/EMTRIC/TENOF 1 EACH TABLET PO SCH (09:54)
[2016-05-13] MEDS: DARUNAVIR ETHANOLATE 800 MG TABLET PO SCH (09:54)
[2016-05-13] MEDS: DILTIAZEM 60 MG TAB PO SCH (09:55)
[2016-05-13] MEDS: ENOXAPARIN 40 MG/0.4 ML SYG SC SCH (10:06)
[2016-05-13 11:31] LABS: BASOPHIL # 0.1 10^3/ul (0.0-0.1); EOSINOPHILS # 3.3 10^3/ul (0.0-0.5); LYMPHOCYTES # 1.1 10^3/ul (0.8-2.9); MONOCYTE # 0.2 10^3/ul (0.3-0.9); NEUTROPHIL # 1.1 10^3/ul (1.6-7.5); TARGET CELLS 1+
[2016-05-13] MEDS ORDERED: POTASSIUM CHLORIDE 20 MEQ POWDER FOR ORAL SOLN PO ONE (15:00)
[2016-05-13] MEDS: CASPOFUNGIN 50 MG in SOD CHLORIDE 0.9% 250 ML IVPB SCH (15:45)
--- NOTE | 2016-05-13 15:53 | PN ---
Date/Time of Note Date/Time of Note DATE: 05/13/16 TIME: 15:49 Assessment/Plan VTE Prophylaxis VTE Prophylaxis Intervention: SCD's Lines/Catheters IV Catheter Type (from [facility]): Saline Lock Urinary Cath still in place: No Assessment/Plan Chief Complaint/Hosp Course ASSESSMENT AND PLAN: -Sepsis with gram-negative rods bacteremia. Dr. Narayanan is following infectious disease consultation. Continue antibiotics per ID. Pending biopsy of left supraclavicular lymph nodes and WBC scan. -Neutropenic fever. Continue neutropenic precautions. Continue broad spectrum antibiotics. Follow up on urine and blood cultures. -Advanced AIDS. Continue the patient on Stribild, darunavir and Mepron. Continue azithromycin. - Afib with RVR, Dr. Silver is following in cardiology consultation. Continue Cardizem. - Medical non- compliance. Sequential compression devices for deep venous thrombosis prophylaxis and Pepcid for peptic ulcer disease prophylaxis. Further recommendations based on clinical course. Plan of care discussed with Dr. Walden. Problems: Subjective 24 Hr Interval Summary Free Text/Dictation Patient undergoing white blood cell scan, continues to have low-grade fever per RN, no nausea vomiting reported. Exam/Review of Systems Vital Signs Vitals Vital Signs Date Time Temp Pulse Resp B/P Pulse Ox O2 Delivery O2 Flow Rate FiO2 05/13/16 12:18 97 05/13/16 11:51 98.7 20 93/54 98 Intake and Output 05/12/16 05/12/16 05/13/16 15:00 23:00 07:00 Intake Total 183.33 ml 1250 ml 500 ml Output Total 200 ml 2150 ml 1250 ml Balance -16.67 ml -900 ml -750 ml Exam GENERAL: Well-developed, well-nourished male in no acute distress. HEENT: Head is atraumatic, normocephalic. PERRLA. NECK: Supple. LUNGS: Slightly diminished at the bases. Clear in the upper lobes. CARDIOVASCULAR: The patient is tachycardic. Normal S1, S2. No murmurs, gallops, clicks, rubs noted. ABDOMEN: Round, soft, nondistended, nontender. Bowel sounds present. No guarding, no rebound tenderness. EXTREMITIES: There is no edema, clubbing, cyanosis. Pulses equal bilaterally 2 +. SKIN: The patient has diffuse erythema all over his body. There is no maculopapular rash, no petechiae. No ecchymosis noted. NEUROLOGIC: Patient is awake, alert and oriented. Results Result Diagram: 05/13/16 0859 05/13/16 0859 Results 24 hrs Laboratory Tests Test 05/12/16 17:10 05/13/16 08:59 Vancomycin Level Trough 11.8 White Blood Count 5.8 Red Blood Count 3.93 L Hemoglobin 11.3 L Hematocrit 32.4 L Mean Corpuscular Volume 82.4 Mean Corpuscular Hemoglobin 28.8 L Mean Corpuscular Hemoglobin Concent 34.9 Red Cell Distribution Width 15.0 H Platelet Count 241 Mean Platelet Volume 9.4 Neutrophils % 19.0 L Lymphocytes % 19.0 Monocytes % 4.0 Eosinophils % 57.0 H Basophils % 1.0 Neutrophils # 1.1 L Lymphocytes # 1.1 Monocytes # 0.2 L Eosinophils # 3.3 H Basophils # 0.1 Target Cells 1+ Sodium Level 135 Potassium Level 3.4 L Chloride Level 104 Carbon Dioxide Level 23 Anion Gap 11 Blood Urea Nitrogen 9 Creatinine 0.64 Glucose Level 85 Calcium Level 7.7 L Medications Medications Current Medications Diphenhydramine HCl (Benadryl) 25 mg Q6H PRN IV ITCHING Last administered on 21:55; Admin Dose 25 MG; Start 05/03/16 at 23:30 Morphine Sulfate (morphine) 2 mg Q4H PRN IV PAIN Last administered on 21:46; Admin Dose 2 MG; Start 05/03/16 at 23:30 Enoxaparin Sodium (Lovenox) 40 mg DAILY SC Last administered on 05/13/16 10:06 ; Admin Dose 40 MG; Start 05/04/16 at 09:00 Acetaminophen (Tylenol Tab) 650 mg Q4H PRN PO PAIN AND OR ELEVATED TEMP Last administered on 05/12/16 23:09; Admin Dose 650 MG; Start 05/03/16 at 23:30 Darunavir (Prezista) 800 mg DAILY PO Last administered on 05/13/16 09:54; Admin Dose 800 MG; Start 05/04/16 at 09:00 Acetaminophen/ Hydrocodone Bitart ([place] (5/325)) 1 tab Q4H PRN PO PAIN Last administered on 05/10/16 06:17; Admin Dose 1 TAB; Start 05/03/16 at 23:30 Multivitamins Therapeutic (Theragran) 1 tab DAILY PO Last administered on 09:54; Admin Dose 1 TAB; Start 05/04/16 at 09:00 Azithromycin (Zithromax) 1,200 mg We@09 PO Last administered on 05/11/16 13:23 ; Admin Dose 1,200 MG; Start 05/04/16 at 09:00 Elvitegravir/ Cobicis/Emtricit/ Tenof (Stribild Tablet) 1 each DAILY PO Last administered on 05/13/16 09:54; Admin Dose 1 EACH; Start 05/04/16 at 09:00 Ibuprofen (Motrin) 400 mg Q6H PRN PO PAIN OR TEMP ABOVE 38C Last administered on 05/12/16 23:09; Admin Dose 400 MG; Start 05/04/16 at 11:30 Famotidine (Pepcid) 20 mg DAILY PO Last administered on 05/13/16 09:54; Admin Dose 20 MG; Start 05/04/16 at 12:30 Cyanocobalamin (Vitamin B12 Inj) 1,000 mcg Q28D IM Last administered on 09:45; Admin Dose 1,000 MCG; Start 05/04/16 at 09:00 Loratadine 10 mg 10 mg DAILY PO Last administered on 05/13/16 09:54; Admin Dose 10 MG; Start 05/06/16 at 09:00 Imipenem/ Cilastatin Sodium 100 ml @ 100 mls/hr Q6 IVPB Last administered on 12:07; Admin Dose 100 MLS/HR; Start 05/05/16 at 18:00 Sodium Chloride (NS) 1,000 ml @ 75 mls/hr [id number] IV Last administered on 05/13 05:11; Admin Dose 75 MLS/HR; Start 05/05/16 at 23:30 Aspirin (Aspirin) 325 mg DAILY PO Last administered on 05/13/16 09:54; Admin Dose 325 MG; Start 05/07/16 at 09:00 Eye Lubricant (Artificial Tears Oph) 2 drop QID BOTH EYES Last administered on 05/13/16 13:38; Admin Dose 2 DROP; Start 05/06/16 at 17:00 Diltiazem HCl 120 mg 120 mg DAILY PO Last administered on 05/13/16 09:55; Admin Dose 120 MG; Start 05/07/16 at 09:00 Vancomycin HCl/ Sodium Chloride (Vancocin/NS) 250 ml @ 83.333 mls/ hr Q12H IVPB Last administered on 05/13/16 05:11; Admin Dose 83.333 MLS/HR; Start at 18:00 Trimethoprim/ Sulfamethoxazole 1 tab 1 tab SuTuTh@09 PO Last administered on 10:13; Admin Dose 1 TAB; Start 05/08/16 at 09:00 Caspofungin 50 mg/ Sodium Chloride 250 ml @ 250 mls/hr Q24H IVPB Last administered on 05/13/16 15:45; Admin Dose 250 MLS/HR; Start 05/09/16 at 16:00 Aztreonam/Sodium Chloride (Azactam/NS) 100 ml @ 100 mls/hr Q8 IVPB Last administered on 05/13/16 13:38; Admin Dose 100 MLS/HR; Start 05/10/16 at 14:30 Valacyclovir HCl (Valtrex) 1,000 mg TID PO Last administered on 05/13/16 13:38 ; Admin Dose 1,000 MG; Start 05/11/16 at 13:00; Stop 05/18/16 at 12:59 AAKASH MITCHELL May 13, 2016 15:53
[2016-05-13] MEDS: ACETAMINOPHEN 325 MG TAB PO PRN (15:59)
--- NOTE | 2016-05-13 16:05 | RADRPT ---
Echocardiogram Report Patient Name: CYNTHIA CLIFFORD Gender: Male Date: 1950 Study Date: 13-May-2016 Head Sampler: Dax Brunner [facility] Location: 508 Ref. Physician: NAKIA LUNA Quality: Adequate Procedures: Transthoracic echocardiogram with complete 2D, M-Mode, and doppler examination. Indications: Fever. 2D/M Mode Doppler Measurement Value Normal Ranges Measurement Value Normal Ranges LVIDd 2D 5.2 3.5 - 5.6 cm AV Peak Jae 1.4 m/sec LVIDs 2D 2.4 2.1 - 4.1 cm AV Peak PG 8.0 mmHg FS 2D 54.1 % LVOT Peak Jae 1.3 m/sec LVPWd 2D 1.0 0.6 - 1.1 cm LVOT Peak PG 7.0 mmHg IVSd 2D 1.0 0.6 - 1.1 cm MV E Peak Jae 1.3 m/sec IVS/LVPW 2D 1.0 MV A Peak Jae 0.9 m/sec AoR Diam 2D 3.6 2.0 - 3.7 cm MV E/A 1.4 LA/Ao 2D 1 0 - 1 MV Decel Time 141 msec EDV 2D 143.0 cm3 MV E/A 1.4 ESV 2D 13.8 cm3 LA Dimen 2D 3.8 2.3 - 4.0 cm Findings Left Ventricle: Normal left ventricular systolic function. Normal left ventricular cavity size. Mild concentric left ventricular hypertrophy. Ejection fraction is visually estimated at 65 %. Right Ventricle: Normal right ventricular size. Normal right ventricular systolic function. Left Atrium: The left atrium is normal in size. Right Atrium: The right atrium is normal in size. Mitral Valve: Mitral valve leaflets appear mildly thickened. Mild mitral annular calcification. Trace mitral regurgitation. Aortic Valve: No significant aortic stenosis or insufficiency. Aortic cusps appear mildly calcified. Tricuspid Valve: Normal appearance of the tricuspid valve. Unable to obtain RVSP due to minimal presence of tricuspid regurgitation. Pulmonic Valve: Pulmonic valve not well visualized. Pericardium: Normal pericardium with no significant pericardial effusion. Aorta: Normal aortic root. IVC: Normal size and normal respiratory collapse consistent with normal right atrial pressure. Conclusions 1.Normal left ventricular systolic function. Normal left ventricular cavity size. Mild concentric left ventricular hypertrophy. Ejection fraction is visually estimated at 65 %. 2.Mitral valve leaflets appear mildly thickened. Mild mitral annular calcification. Trace mitral regurgitation. 3.No significant aortic stenosis or insufficiency. Aortic cusps appear mildly calcified. 4.Normal appearance of the tricuspid valve. Unable to obtain RVSP due to minimal presence of tricuspid regurgitation. Electronically Signed By: Pj Silver 13-May-2016 16:04:31 -0700 Patient Name: CYNTHIA CLIFFORD Study Date: 13-May-2016 [id number]
--- NOTE | 2016-05-13 16:11 | CONS ---
Date/Time of Note Date/Time of Note DATE: 05/13/16 TIME: 16:10 Assessment/Plan Assessment/Plan Chief Complaint/Hosp Course - GNR bacteremia 05/03/16. CT of neck/chest/abd/pel shows no occult infection. - recurrent neutropenic fever, infectious process vs. immune reconstitution inflammatory response - advanced AIDS (CD4<20, viral load 166,544 copies in 04/21/2016 & repeat CD4 37 on 05/07/2016), was non-compliant with medications. Restarted on Stribild and darunavir on 04/23/2016 - neutropenia s/p BMBx, no e/o infections or malignancy at this time. CMV IHC negative, CMV PCR in serum was <200, cocci and crypto negative, QTB gold negative - h/o cough in 03/2016. CXR showed overinflated lungs, CT showed benign appearing sub-centimeter nodule seen at the bilateral lung bases - h/o E. coli in urine, likely colonization. completed treatment for this - LUE weakness and pain due to tear of rotator cuff muscles and bicep tendon anchor - L cervical and supraclavicular lymphadenopathy probably due to HIV infection - h/o thrush, resolved - hyperpigmented lesions on b/l LE x several months according to Pt - pruritis - improving - eosinophilia - Hx prostatitis - PSA WNL - poss HSV labialis recommendations: - - Continue empiric vancomycin (05/04/16-), imipenem (05/05/16-) and continue aztreonam (05/10/16-) for double GN coverage. - F/u final C&S of GNR bacteremia (05/03/16)-- still awaiting cx results - Continue empiric Caspofungin (05/09/16-); F/u procalcitonin and Beta D Glucan ( pending) - F/u [place] cultures (repeat blood and urine cultures 05/07/16 negative to date, UA negative), AFB blood culture (pending), AFB stool (pending) - eosinophilia and pruritis: F/u stool O&P (pending). - Continue Bactrim three times a week for a possibility of atovaquone-related rash - Continue Stribild (tenofovir/emtricitabine/elvitaegravir/cobicistat) and darunavir 800mg (darunavir dosed at 800mg to simulate Prezcobix (darunavir 800mg /cobicistat 150mg) - Continue azithromycin for MAC prophylaxis - Continue Valtrex 1000 mg TID x 7 days (05/11/16-) for poss HSV labialis - DC nystatin - Ordered WBC scan to r/o infectious process d/t persistent fevers - Consider repeat TTE to r/o vegetation d/t persistent fevers and GN bacteremia - Consider Surgical consult for biopsy of left supraclavicular lymph nodes - Consider Psych eval Problems: Consultation Date/Type/Reason Admit Date/Time May 03, 2016 at 19:51 Type of Consultation: id Referring Provider: NAKIA LUNA MD 24 HR Interval Summary Free Text/Dictation d/w patient Exam/Review of Systems Vital Signs Vitals Vital Signs Date Time Temp Pulse Resp B/P Pulse Ox O2 Delivery O2 Flow Rate FiO2 05/13/16 15:53 100.4 99 21 119/82 99 Intake and Output 05/12/16 05/12/16 05/13/16 15:00 23:00 07:00 Intake Total 183.33 ml 1250 ml 500 ml Output Total 200 ml 2150 ml 1250 ml Balance -16.67 ml -900 ml -750 ml Exam Constitutional: alert, oriented, well developed Psych: nl mood/affect, no complaints Head: atraumatic, normocephalic Eyes: EOMI, PERRL, nl conjunctiva, nl lids, nl sclera ENMT: other (lip lesion smaller) Respiratory: clear to auscultation, normal air movement Cardiovascular: nl pulses, regular rate and rhythm Results Result Diagram: 05/13/16 0859 05/13/16 0859 Results 24 hrs Laboratory Tests Test 05/12/16 17:10 05/13/16 08:59 Vancomycin Level Trough 11.8 White Blood Count 5.8 Red Blood Count 3.93 L Hemoglobin 11.3 L Hematocrit 32.4 L Mean Corpuscular Volume 82.4 Mean Corpuscular Hemoglobin 28.8 L Mean Corpuscular Hemoglobin Concent 34.9 Red Cell Distribution Width 15.0 H Platelet Count 241 Mean Platelet Volume 9.4 Neutrophils % 19.0 L Lymphocytes % 19.0 Monocytes % 4.0 Eosinophils % 57.0 H Basophils % 1.0 Neutrophils # 1.1 L Lymphocytes # 1.1 Monocytes # 0.2 L Eosinophils # 3.3 H Basophils # 0.1 Target Cells 1+ Sodium Level 135 Potassium Level 3.4 L Chloride Level 104 Carbon Dioxide Level 23 Anion Gap 11 Blood Urea Nitrogen 9 Creatinine 0.64 Glucose Level 85 Calcium Level 7.7 L Medications Medications Current Medications Diphenhydramine HCl (Benadryl) 25 mg Q6H PRN IV ITCHING Last administered on 21:55; Admin Dose 25 MG; Start 05/03/16 at 23:30 Morphine Sulfate (morphine) 2 mg Q4H PRN IV PAIN Last administered on 21:46; Admin Dose 2 MG; Start 05/03/16 at 23:30 Enoxaparin Sodium (Lovenox) 40 mg DAILY SC Last administered on 05/13/16 10:06 ; Admin Dose 40 MG; Start 05/04/16 at 09:00 Acetaminophen (Tylenol Tab) 650 mg Q4H PRN PO PAIN AND OR ELEVATED TEMP Last administered on 05/13/16 15:59; Admin Dose 650 MG; Start 05/03/16 at 23:30 Darunavir (Prezista) 800 mg DAILY PO Last administered on 05/13/16 09:54; Admin Dose 800 MG; Start 05/04/16 at 09:00 Acetaminophen/ Hydrocodone Bitart ([place] (5/325)) 1 tab Q4H PRN PO PAIN Last administered on 05/10/16 06:17; Admin Dose 1 TAB; Start 05/03/16 at 23:30 Multivitamins Therapeutic (Theragran) 1 tab DAILY PO Last administered on 09:54; Admin Dose 1 TAB; Start 05/04/16 at 09:00 Azithromycin (Zithromax) 1,200 mg We@09 PO Last administered on 05/11/16 13:23 ; Admin Dose 1,200 MG; Start 05/04/16 at 09:00 Elvitegravir/ Cobicis/Emtricit/ Tenof (Stribild Tablet) 1 each DAILY PO Last administered on 05/13/16 09:54; Admin Dose 1 EACH; Start 05/04/16 at 09:00 Ibuprofen (Motrin) 400 mg Q6H PRN PO PAIN OR TEMP ABOVE 38C Last administered on 05/12/16 23:09; Admin Dose 400 MG; Start 05/04/16 at 11:30 Famotidine (Pepcid) 20 mg DAILY PO Last administered on 05/13/16 09:54; Admin Dose 20 MG; Start 05/04/16 at 12:30 Cyanocobalamin (Vitamin B12 Inj) 1,000 mcg Q28D IM Last administered on 09:45; Admin Dose 1,000 MCG; Start 05/04/16 at 09:00 Loratadine 10 mg 10 mg DAILY PO Last administered on 05/13/16 09:54; Admin Dose 10 MG; Start 05/06/16 at 09:00 Imipenem/ Cilastatin Sodium 100 ml @ 100 mls/hr Q6 IVPB Last administered on 12:07; Admin Dose 100 MLS/HR; Start 05/05/16 at 18:00 Sodium Chloride (NS) 1,000 ml @ 75 mls/hr [id number] IV Last administered on 05/13 05:11; Admin Dose 75 MLS/HR; Start 05/05/16 at 23:30 Aspirin (Aspirin) 325 mg DAILY PO Last administered on 05/13/16 09:54; Admin Dose 325 MG; Start 05/07/16 at 09:00 Eye Lubricant (Artificial Tears Oph) 2 drop QID BOTH EYES Last administered on 05/13/16 13:38; Admin Dose 2 DROP; Start 05/06/16 at 17:00 Diltiazem HCl 120 mg 120 mg DAILY PO Last administered on 05/13/16 09:55; Admin Dose 120 MG; Start 05/07/16 at 09:00 Vancomycin HCl/ Sodium Chloride (Vancocin/NS) 250 ml @ 83.333 mls/ hr Q12H IVPB Last administered on 05/13/16 05:11; Admin Dose 83.333 MLS/HR; Start at 18:00 Trimethoprim/ Sulfamethoxazole 1 tab 1 tab SuTuTh@09 PO Last administered on 10:13; Admin Dose 1 TAB; Start 05/08/16 at 09:00 Caspofungin 50 mg/ Sodium Chloride 250 ml @ 250 mls/hr Q24H IVPB Last administered on 05/13/16 15:45; Admin Dose 250 MLS/HR; Start 05/09/16 at 16:00 Aztreonam/Sodium Chloride (Azactam/NS) 100 ml @ 100 mls/hr Q8 IVPB Last administered on 05/13/16 13:38; Admin Dose 100 MLS/HR; Start 05/10/16 at 14:30 Valacyclovir HCl (Valtrex) 1,000 mg TID PO Last administered on 05/13/16 13:38 ; Admin Dose 1,000 MG; Start 05/11/16 at 13:00; Stop 05/18/16 at 12:59 GALILEA GOMEZ MD May 13, 2016 16:11
[2016-05-13] MEDS: DIPHENHYDRAMINE 50 MG INJ IV PRN (22:05)
[2016-05-14] VITALS (12 sets, daily range): BP systolic 104–135; BP diastolic 68–84; PULSE 71–103; RESP 15–21
[2016-05-14] MEDS: morphine 2 MG INJ IV PRN ×3 (00:14→23:34)
[2016-05-14] MEDS: ACETAMINOPHEN 325 MG TAB PO PRN (00:14)
[2016-05-14] MEDS: IMIPENEM-CILAST 500 MG/NS 100 ML IVPB SCH ×5 (00:14→23:32)
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
[2016-05-14] MEDS: AZTREONAM 2 GM in SOD CHLORIDE 0.9% 100 ML IVPB SCH ×3 (06:33→22:08)
[2016-05-14 07:04] LABS: ADD SCAN DIFF NO
[2016-05-14 07:09] LABS: ABNORMAL IP MESSAGE 1; BASOPHILS % 0.4 % (0.0-2.0); EOSINOPHILS # 2.8 10^3/ul (0.0-0.5); HEMATOCRIT 31.9 % (42.0-52.0); HEMOGLOBIN 11.1 g/dl (14.0-18.0); LYMPHOCYTES % 44.7 % (15.0-51.0); MEAN CORPUSCULAR HEMOGLOBIN 28.9 pg (29.0-33.0); MEAN CORPUSCULAR HGB CONC 34.8 g/dl (32.0-37.0); MEAN CORPUSCULAR VOLUME 83.1 fl (82.0-101.0); MONOCYTE # 0.5 10^3/ul (0.3-0.9); MONOCYTES % 7.5 % (0.0-11.0); NEUTROPHIL # 0.4 10^3/ul (1.6-7.5); NEUTROPHILS % 5.7 % (39.0-77.0); PLATELET COUNT 273 10^3/UL (140-415); RED BLOOD COUNT 3.84 10^6/ul (4.70-6.10); RED CELL DISTRIBUTION WIDTH 15.4 % (11.5-14.5); WHITE BLOOD COUNT 6.8 10^3/ul (4.8-10.8)
[2016-05-14 07:24] LABS: POTASSIUM 3.3 mmol/L (3.5-5.1)
[2016-05-14 07:26] LABS: CREATININE 0.68 mg/dl (0.61-1.24)
[2016-05-14 07:27] LABS: CALCIUM 7.7 mg/dl (8.4-10.2)
[2016-05-14] MEDS: SOD CHLORIDE 0.9% 1,000 ML IV SCH ×2 (07:44→22:09)
[2016-05-14] MEDS: VANCOMYCIN 1.5 GM in SOD CHLORIDE 0.9% 250 ML IVPB SCH ×2 (07:45→18:22)
--- NOTE | 2016-05-14 07:48 | CONS ---
Date/Time of Note Date/Time of Note DATE: 05/14/16 TIME: 07:25 Assessment/Plan Assessment/Plan Chief Complaint/Hosp Course - GNR bacteremia 05/03/16. CT of neck/chest/abd/pel shows no occult infection. - recurrent neutropenic fever, infectious process vs. immune reconstitution inflammatory response - Eosiniophillia - advanced AIDS (CD4<20, viral load 166,544 copies in 04/21/2016 & repeat CD4 37 on 05/07/2016), was non-compliant with medications. Restarted on Stribild and darunavir on 04/23/2016 - neutropenia s/p BMBx, no e/o infections or malignancy at this time. CMV IHC negative, CMV PCR in serum was <200, cocci and crypto negative, QTB gold negative - h/o cough in 03/2016. CXR showed overinflated lungs, CT showed benign appearing sub-centimeter nodule seen at the bilateral lung bases - h/o E. coli in urine, likely colonization. completed treatment for this - LUE weakness and pain due to tear of rotator cuff muscles and bicep tendon anchor - L cervical and supraclavicular lymphadenopathy probably due to HIV infection - h/o thrush, resolved - hyperpigmented lesions on b/l LE x several months according to Pt - pruritis - improving - eosinophilia - Hx prostatitis - PSA WNL - poss HSV labialis recommendations: - cmv pcr, hhv pcr, hsv pcr - toxoplasmosis serology - HTLV pcr - parvovirus b19 serology - Barotnella henslae serology - If lymph node bx done please send for afb, fungal, bacterial cxs, path with stains for afb/fungal, hhv stain - check for parasitic infection related to gram negative bita bacteremia; strongyloidiasis - further w/u for other esoteric infections based on results of above - - Continue empiric vancomycin (05/04/16-), imipenem (05/05/16-) and continue aztreonam (05/10/16-) for double GN coverage. - F/u final C&S of GNR bacteremia (05/03/16)-- still awaiting cx results - Continue empiric Caspofungin (05/09/16-); F/u procalcitonin and Beta D Glucan ( pending) - F/u crowley cultures (repeat blood and urine cultures 05/07/16 negative to date, UA negative), AFB blood culture (pending), AFB stool (pending) - eosinophilia and pruritis: F/u stool O&P negative; will resend - Continue Bactrim three times a week for a possibility of atovaquone-related rash - Continue Stribild (tenofovir/emtricitabine/elvitaegravir/cobicistat) and darunavir 800mg (darunavir dosed at 800mg to simulate Prezcobix (darunavir 800mg /cobicistat 150mg) - Continue azithromycin for MAC prophylaxis - Continue Valtrex 1000 mg TID x 7 days (05/11/16-) for poss HSV labialis - DC nystatin - Ordered WBC scan to r/o infectious process d/t persistent fevers - Consider repeat TTE to r/o vegetation d/t persistent fevers and GN bacteremia ; may need to consider BRIANA - f/u Surgical consult for biopsy of left supraclavicular lymph nodes - Consider Psych eval prolonged service time 1 hour Problems: Consultation Date/Type/Reason Admit Date/Time May 03, 2016 at 19:51 Type of Consultation: id Referring Provider: NAKIA LUNA MD Exam/Review of Systems Vital Signs Vitals Vital Signs Date Time Temp Pulse Resp B/P Pulse Ox O2 Delivery O2 Flow Rate FiO2 05/14/16 04:34 103 05/14/16 04:26 99.1 21 135/77 98 Intake and Output 05/13/16 05/13/16 05/14/16 15:00 23:00 07:00 Intake Total 100 ml 1300 ml 500 ml Output Total 1550 ml 200 ml 1300 ml Balance -1450 ml 1100 ml -800 ml Results Result Diagram: 05/14/16 0623 05/13/16 0859 Results 24 hrs Laboratory Tests Test 05/13/16 08:59 05/14/16 06:23 White Blood Count 5.8 6.8 Red Blood Count 3.93 L 3.84 L Hemoglobin 11.3 L 11.1 L Hematocrit 32.4 L 31.9 L Mean Corpuscular Volume 82.4 83.1 Mean Corpuscular Hemoglobin 28.8 L 28.9 L Mean Corpuscular Hemoglobin Concent 34.9 34.8 Red Cell Distribution Width 15.0 H 15.4 H Platelet Count 241 273 Mean Platelet Volume 9.4 10.0 Neutrophils % 19.0 L 5.7 L Lymphocytes % 19.0 44.7 Monocytes % 4.0 7.5 Eosinophils % 57.0 H 41.0 H Basophils % 1.0 0.4 Neutrophils # 1.1 L 0.4 L Lymphocytes # 1.1 3.0 H Monocytes # 0.2 L 0.5 Eosinophils # 3.3 H 2.8 H Basophils # 0.1 0.0 Target Cells 1+ Sodium Level 135 Potassium Level 3.4 L Chloride Level 104 Carbon Dioxide Level 23 Anion Gap 11 Blood Urea Nitrogen 9 Creatinine 0.64 Glucose Level 85 Calcium Level 7.7 L Nucleated Red Blood Cells % 0.0 Nucleated Red Blood Cells # 0.0 Medications Medications Current Medications Diphenhydramine HCl (Benadryl) 25 mg Q6H PRN IV ITCHING Last administered on 22:05; Admin Dose 25 MG; Start 05/03/16 at 23:30 Morphine Sulfate (morphine) 2 mg Q4H PRN IV PAIN Last administered on 00:14; Admin Dose 2 MG; Start 05/03/16 at 23:30 Enoxaparin Sodium (Lovenox) 40 mg DAILY SC Last administered on 05/13/16 10:06 ; Admin Dose 40 MG; Start 05/04/16 at 09:00 Acetaminophen (Tylenol Tab) 650 mg Q4H PRN PO PAIN AND OR ELEVATED TEMP Last administered on 05/14/16 00:14; Admin Dose 650 MG; Start 05/03/16 at 23:30 Darunavir (Prezista) 800 mg DAILY PO Last administered on 05/13/16 09:54; Admin Dose 800 MG; Start 05/04/16 at 09:00 Acetaminophen/ Hydrocodone Bitart ([place] (5/325)) 1 tab Q4H PRN PO PAIN Last administered on 05/10/16 06:17; Admin Dose 1 TAB; Start 05/03/16 at 23:30 Multivitamins Therapeutic (Theragran) 1 tab DAILY PO Last administered on 09:54; Admin Dose 1 TAB; Start 05/04/16 at 09:00 Azithromycin (Zithromax) 1,200 mg We@09 PO Last administered on 05/11/16 13:23 ; Admin Dose 1,200 MG; Start 05/04/16 at 09:00 Elvitegravir/ Cobicis/Emtricit/ Tenof (Stribild Tablet) 1 each DAILY PO Last administered on 05/13/16 09:54; Admin Dose 1 EACH; Start 05/04/16 at 09:00 Ibuprofen (Motrin) 400 mg Q6H PRN PO PAIN OR TEMP ABOVE 38C Last administered on 05/12/16 23:09; Admin Dose 400 MG; Start 05/04/16 at 11:30 Famotidine (Pepcid) 20 mg DAILY PO Last administered on 05/13/16 09:54; Admin Dose 20 MG; Start 05/04/16 at 12:30 Cyanocobalamin (Vitamin B12 Inj) 1,000 mcg Q28D IM Last administered on 09:45; Admin Dose 1,000 MCG; Start 05/04/16 at 09:00 Loratadine 10 mg 10 mg DAILY PO Last administered on 05/13/16 09:54; Admin Dose 10 MG; Start 05/06/16 at 09:00 Imipenem/ Cilastatin Sodium 100 ml @ 100 mls/hr Q6 IVPB Last administered on 05:49; Admin Dose 100 MLS/HR; Start 05/05/16 at 18:00 Sodium Chloride (NS) 1,000 ml @ 75 mls/hr [id number] IV Last administered on 05/13 05:11; Admin Dose 75 MLS/HR; Start 05/05/16 at 23:30 Aspirin (Aspirin) 325 mg DAILY PO Last administered on 05/13/16 09:54; Admin Dose 325 MG; Start 05/07/16 at 09:00 Eye Lubricant (Artificial Tears Oph) 2 drop QID BOTH EYES Last administered on 05/13/16 22:06; Admin Dose 2 DROP; Start 05/06/16 at 17:00 Diltiazem HCl 120 mg 120 mg DAILY PO Last administered on 05/13/16 09:55; Admin Dose 120 MG; Start 05/07/16 at 09:00 Vancomycin HCl/ Sodium Chloride (Vancocin/NS) 250 ml @ 83.333 mls/ hr Q12H IVPB Last administered on 05/13/16 18:24; Admin Dose 83.333 MLS/HR; Start at 18:00 Trimethoprim/ Sulfamethoxazole 1 tab 1 tab SuTuTh@09 PO Last administered on 10:13; Admin Dose 1 TAB; Start 05/08/16 at 09:00 Caspofungin 50 mg/ Sodium Chloride 250 ml @ 250 mls/hr Q24H IVPB Last administered on 05/13/16 15:45; Admin Dose 250 MLS/HR; Start 05/09/16 at 16:00 Aztreonam/Sodium Chloride (Azactam/NS) 100 ml @ 100 mls/hr Q8 IVPB Last administered on 05/14/16 06:33; Admin Dose 100 MLS/HR; Start 05/10/16 at 14:30 Valacyclovir HCl (Valtrex) 1,000 mg TID PO Last administered on 05/13/16 22:05 ; Admin Dose 1,000 MG; Start 05/11/16 at 13:00; Stop 05/18/16 at 12:59 GALILEA GOMEZ MD May 14, 2016 07:35
[2016-05-14] MEDS: ASPIRIN 325 MG TAB PO SCH (09:31)
[2016-05-14] MEDS: FAMOTIDINE 20 MG TAB PO SCH (09:31)
[2016-05-14] MEDS: ELVITEGR/COBICIST/EMTRIC/TENOF 1 EACH TABLET PO SCH (09:31)
[2016-05-14] MEDS: MULTIVITAMINS THERAPEUTIC TAB PO SCH (09:31)
[2016-05-14] MEDS: DILTIAZEM 60 MG TAB PO SCH (09:31)
[2016-05-14] MEDS: LORATADINE 10 MG TAB PO SCH (09:31)
[2016-05-14] MEDS: DARUNAVIR ETHANOLATE 800 MG TABLET PO SCH (09:31)
[2016-05-14] MEDS: VALACYCLOVIR 500 MG TAB PO SCH ×4 (09:32→22:08)
[2016-05-14] MEDS: ARTIFICIAL TEARS 15 ML OPH BOTH EYES SCH ×4 (09:32→22:10)
[2016-05-14] MEDS: ENOXAPARIN 40 MG/0.4 ML SYG SC SCH (09:35)
--- NOTE | 2016-05-14 11:26 | PN ---
Date/Time of Note Date/Time of Note DATE: 05/14/16 TIME: 11:21 Assessment/Plan VTE Prophylaxis VTE Prophylaxis Intervention: other Lines/Catheters IV [facility] Urinary Cath still in place: No Assessment/Plan Assessment/Plan -Sepsis with gram-negative rods bacteremia. Dr. Narayanan is following infectious disease consultation. Continue antibiotics per ID. Pending biopsy of left supraclavicular lymph nodes and WBC scan. -Neutropenic fever. Continue neutropenic precautions. Continue broad spectrum antibiotics. Follow up on urine and blood cultures. -Advanced AIDS. Continue the patient on Stribild, darunavir and Mepron. Continue azithromycin. - Fevers, chills and lymphadenopathy. - per surgery-possible plan for BX - Afib with RVR, Dr. Sliver is following in cardiology consultation. Continue Cardizem. - Medical non- compliance. -Hypokalemia- replet K,. am labs Sequential compression devices for deep venous thrombosis prophylaxis and Pepcid for peptic ulcer disease prophylaxis. Further recommendations based on clinical course. Plan of care discussed with Dr. Walden. Exam/Review of Systems Vital Signs Vitals Vital Signs Date Time Temp Pulse Resp B/P Pulse Ox O2 Delivery O2 Flow Rate FiO2 05/14/16 09:28 98.4 16 131/76 98 Room Air 05/14/16 08:22 88 05/14/16 08:21 2.0 28 Intake and Output 05/13/16 05/13/16 05/14/16 15:00 23:00 07:00 Intake Total 100 ml 1300 ml 500 ml Output Total 1550 ml 200 ml 1300 ml Balance -1450 ml 1100 ml -800 ml Exam Constitutional: alert, oriented, well developed Psych: nl mood/affect Head: normocephalic Eyes: EOMI, nl conjunctiva ENMT: nl external ears & nose Respiratory: clear to auscultation Cardiovascular: regular rate and rhythm Gastrointestinal: non-tender, soft Musculoskeletal: nl extremities to inspection Extremities: normal pulses Neurological: nl mental status Skin: nl turgor Lymph: enlarged Results Result Diagram: 05/14/16 0623 05/14/16 0623 Results 24 hrs Laboratory Tests Test 05/14/16 06:23 White Blood Count 6.8 Red Blood Count 3.84 L Hemoglobin 11.1 L Hematocrit 31.9 L Mean Corpuscular Volume 83.1 Mean Corpuscular Hemoglobin 28.9 L Mean Corpuscular Hemoglobin Concent 34.8 Red Cell Distribution Width 15.4 H Platelet Count 273 Mean Platelet Volume 10.0 Neutrophils % 5.7 L Lymphocytes % 44.7 Monocytes % 7.5 Eosinophils % 41.0 H Basophils % 0.4 Nucleated Red Blood Cells % 0.0 Neutrophils # 0.4 L Lymphocytes # 3.0 H Monocytes # 0.5 Eosinophils # 2.8 H Basophils # 0.0 Nucleated Red Blood Cells # 0.0 Sodium Level 135 Potassium Level 3.3 L Chloride Level 106 Carbon Dioxide Level 22 Anion Gap 10 Blood Urea Nitrogen 8 Creatinine 0.68 Glucose Level 87 Calcium Level 7.7 L Medications Medications Current Medications Diphenhydramine HCl (Benadryl) 25 mg Q6H PRN IV ITCHING Last administered on 22:05; Admin Dose 25 MG; Start 05/03/16 at 23:30 Morphine Sulfate (morphine) 2 mg Q4H PRN IV PAIN Last administered on 10:03; Admin Dose 2 MG; Start 05/03/16 at 23:30 Enoxaparin Sodium (Lovenox) 40 mg DAILY SC Last administered on 05/14/16 09:35 ; Admin Dose 40 MG; Start 05/04/16 at 09:00 Acetaminophen (Tylenol Tab) 650 mg Q4H PRN PO PAIN AND OR ELEVATED TEMP Last administered on 05/14/16 00:14; Admin Dose 650 MG; Start 05/03/16 at 23:30 Darunavir (Prezista) 800 mg DAILY PO Last administered on 05/14/16 09:31; Admin Dose 800 MG; Start 05/04/16 at 09:00 Acetaminophen/ Hydrocodone Bitart ([place] (5/325)) 1 tab Q4H PRN PO PAIN Last administered on 05/10/16 06:17; Admin Dose 1 TAB; Start 05/03/16 at 23:30 Multivitamins Therapeutic (Theragran) 1 tab DAILY PO Last administered on 09:31; Admin Dose 1 TAB; Start 05/04/16 at 09:00 Azithromycin (Zithromax) 1,200 mg We@09 PO Last administered on 05/11/16 13:23 ; Admin Dose 1,200 MG; Start 05/04/16 at 09:00 Elvitegravir/ Cobicis/Emtricit/ Tenof (Stribild Tablet) 1 each DAILY PO Last administered on 05/14/16 09:31; Admin Dose 1 EACH; Start 05/04/16 at 09:00 Ibuprofen (Motrin) 400 mg Q6H PRN PO PAIN OR TEMP ABOVE 38C Last administered on 05/12/16 23:09; Admin Dose 400 MG; Start 05/04/16 at 11:30 Famotidine (Pepcid) 20 mg DAILY PO Last administered on 05/14/16 09:31; Admin Dose 20 MG; Start 05/04/16 at 12:30 Cyanocobalamin (Vitamin B12 Inj) 1,000 mcg Q28D IM Last administered on 09:45; Admin Dose 1,000 MCG; Start 05/04/16 at 09:00 Loratadine 10 mg 10 mg DAILY PO Last administered on 05/14/16 09:31; Admin Dose 10 MG; Start 05/06/16 at 09:00 Imipenem/ Cilastatin Sodium 100 ml @ 100 mls/hr Q6 IVPB Last administered on 05:49; Admin Dose 100 MLS/HR; Start 05/05/16 at 18:00 Sodium Chloride (NS) 1,000 ml @ 75 mls/hr [id number] IV Last administered on 05/14 07:44; Admin Dose 75 MLS/HR; Start 05/05/16 at 23:30 Aspirin (Aspirin) 325 mg DAILY PO Last administered on 05/14/16 09:31; Admin Dose 325 MG; Start 05/07/16 at 09:00 Eye Lubricant (Artificial Tears Oph) 2 drop QID BOTH EYES Last administered on 05/14/16 09:32; Admin Dose 2 DROP; Start 05/06/16 at 17:00 Diltiazem HCl 120 mg 120 mg DAILY PO Last administered on 05/14/16 09:31; Admin Dose 120 MG; Start 05/07/16 at 09:00 Vancomycin HCl/ Sodium Chloride (Vancocin/NS) 250 ml @ 83.333 mls/ hr Q12H IVPB Last administered on 05/14/16 07:45; Admin Dose 83.333 MLS/HR; Start at 18:00 Trimethoprim/ Sulfamethoxazole 1 tab 1 tab SuTuTh@09 PO Last administered on 10:13; Admin Dose 1 TAB; Start 05/08/16 at 09:00 Caspofungin 50 mg/ Sodium Chloride 250 ml @ 250 mls/hr Q24H IVPB Last administered on 05/13/16 15:45; Admin Dose 250 MLS/HR; Start 05/09/16 at 16:00 Aztreonam/Sodium Chloride (Azactam/NS) 100 ml @ 100 mls/hr Q8 IVPB Last administered on 05/14/16 06:33; Admin Dose 100 MLS/HR; Start 05/10/16 at 14:30 Valacyclovir HCl (Valtrex) 1,000 mg TID PO Last administered on 05/14/16 09:32 ; Admin Dose 1,000 MG; Start 05/11/16 at 13:00; Stop 05/18/16 at 12:59 MAXIME MCKEON May 14, 2016 11:26
--- NOTE | 2016-05-14 13:11 | CONS ---
Date/Time of Note Date/Time of Note DATE: 05/14/16 TIME: 13:11 Consult Date/Type/Reason Admit Date/Time May 03, 2016 at 19:51 Initial Consult Date 05/06/16 Type of Consultation: Card Ordering Provider: NAKIA LUNA MD Objective Vital Signs Date Time Temp Pulse Resp B/P Pulse Ox O2 Delivery O2 Flow Rate FiO2 05/14/16 12:45 2.0 28 05/14/16 12:19 101 05/14/16 09:28 98.4 16 131/76 98 Room Air Intake and Output 05/13/16 05/13/16 05/14/16 15:00 23:00 07:00 Intake Total 100 ml 1300 ml 500 ml Output Total 1550 ml 200 ml 1300 ml Balance -1450 ml 1100 ml -800 ml Results/Medications Result Diagram: 05/14/1662205/14/1623 Results 24 hrs Laboratory Tests Test 05/14/16 06:23 05/14/16 10:40 White Blood Count 6.8 Red Blood Count 3.84 L Hemoglobin 11.1 L Hematocrit 31.9 L Mean Corpuscular Volume 83.1 Mean Corpuscular Hemoglobin 28.9 L Mean Corpuscular Hemoglobin Concent 34.8 Red Cell Distribution Width 15.4 H Platelet Count 273 Mean Platelet Volume 10.0 Neutrophils % 5.7 L Lymphocytes % 44.7 Monocytes % 7.5 Eosinophils % 41.0 H Basophils % 0.4 Nucleated Red Blood Cells % 0.0 Neutrophils # 0.4 L Lymphocytes # 3.0 H Monocytes # 0.5 Eosinophils # 2.8 H Basophils # 0.0 Nucleated Red Blood Cells # 0.0 Sodium Level 135 Potassium Level 3.3 L Chloride Level 106 Carbon Dioxide Level 22 Anion Gap 10 Blood Urea Nitrogen 8 Creatinine 0.68 Glucose Level 87 Calcium Level 7.7 L Lactic Acid Level 2.9 H Medications Current Medications Diphenhydramine HCl (Benadryl) 25 mg Q6H PRN IV ITCHING Last administered on 22:05; Admin Dose 25 MG; Start 05/03/16 at 23:30 Morphine Sulfate (morphine) 2 mg Q4H PRN IV PAIN Last administered on 10:03; Admin Dose 2 MG; Start 05/03/16 at 23:30 Enoxaparin Sodium (Lovenox) 40 mg DAILY SC Last administered on 05/14/16 09:35 ; Admin Dose 40 MG; Start 05/04/16 at 09:00 Acetaminophen (Tylenol Tab) 650 mg Q4H PRN PO PAIN AND OR ELEVATED TEMP Last administered on 05/14/16 00:14; Admin Dose 650 MG; Start 05/03/16 at 23:30 Darunavir (Prezista) 800 mg DAILY PO Last administered on 05/14/16 09:31; Admin Dose 800 MG; Start 05/04/16 at 09:00 Acetaminophen/ Hydrocodone Bitart ([place] (5/325)) 1 tab Q4H PRN PO PAIN Last administered on 05/10/16 06:17; Admin Dose 1 TAB; Start 05/03/16 at 23:30 Multivitamins Therapeutic (Theragran) 1 tab DAILY PO Last administered on 09:31; Admin Dose 1 TAB; Start 05/04/16 at 09:00 Azithromycin (Zithromax) 1,200 mg We@09 PO Last administered on 05/11/16 13:23 ; Admin Dose 1,200 MG; Start 05/04/16 at 09:00 Elvitegravir/ Cobicis/Emtricit/ Tenof (Stribild Tablet) 1 each DAILY PO Last administered on 05/14/16 09:31; Admin Dose 1 EACH; Start 05/04/16 at 09:00 Ibuprofen (Motrin) 400 mg Q6H PRN PO PAIN OR TEMP ABOVE 38C Last administered on 05/12/16 23:09; Admin Dose 400 MG; Start 05/04/16 at 11:30 Famotidine (Pepcid) 20 mg DAILY PO Last administered on 05/14/16 09:31; Admin Dose 20 MG; Start 05/04/16 at 12:30 Cyanocobalamin (Vitamin B12 Inj) 1,000 mcg Q28D IM Last administered on 09:45; Admin Dose 1,000 MCG; Start 05/04/16 at 09:00 Loratadine 10 mg 10 mg DAILY PO Last administered on 05/14/16 09:31; Admin Dose 10 MG; Start 05/06/16 at 09:00 Imipenem/ Cilastatin Sodium 100 ml @ 100 mls/hr Q6 IVPB Last administered on 12:36; Admin Dose 100 MLS/HR; Start 05/05/16 at 18:00 Sodium Chloride (NS) 1,000 ml @ 75 mls/hr [id number] IV Last administered on 05/14 07:44; Admin Dose 75 MLS/HR; Start 05/05/16 at 23:30 Aspirin (Aspirin) 325 mg DAILY PO Last administered on 05/14/16 09:31; Admin Dose 325 MG; Start 05/07/16 at 09:00 Eye Lubricant (Artificial Tears Oph) 2 drop QID BOTH EYES Last administered on 05/14/16 12:37; Admin Dose 2 DROP; Start 05/06/16 at 17:00 Diltiazem HCl 120 mg 120 mg DAILY PO Last administered on 05/14/16 09:31; Admin Dose 120 MG; Start 05/07/16 at 09:00 Vancomycin HCl/ Sodium Chloride (Vancocin/NS) 250 ml @ 83.333 mls/ hr Q12H IVPB Last administered on 05/14/16 07:45; Admin Dose 83.333 MLS/HR; Start at 18:00 Trimethoprim/ Sulfamethoxazole 1 tab 1 tab SuTuTh@09 PO Last administered on 10:13; Admin Dose 1 TAB; Start 05/08/16 at 09:00 Caspofungin 50 mg/ Sodium Chloride 250 ml @ 250 mls/hr Q24H IVPB Last administered on 05/13/16 15:45; Admin Dose 250 MLS/HR; Start 05/09/16 at 16:00 Aztreonam/Sodium Chloride (Azactam/NS) 100 ml @ 100 mls/hr Q8 IVPB Last administered on 05/14/16 06:33; Admin Dose 100 MLS/HR; Start 05/10/16 at 14:30 Valacyclovir HCl (Valtrex) 1,000 mg TID PO Last administered on 05/14/16 09:32 ; Admin Dose 1,000 MG; Start 05/11/16 at 13:00; Stop 05/18/16 at 12:59 Assessment/Plan Chief Complaint/Hosp Course Patient iwth 66 year old M with AIDS recently started on meds, Esophagitis, HTN , who under went new onset Afib with RVR, now going at 150s but asymptomatic. His Cr went up from 0.9 to 1.5. No CP or SOB Problems: Additional Assessment/Plan Pt stable ID on case plan per MUSA LANDRUM MD May 14, 2016 13:11
--- NOTE | 2016-05-14 13:35 | RADRPT ---
PROCEDURE: Indium-111 labeled white blood cell scan CLINICAL INDICATION: 66 -year-old patient with fever and leukocytosis. TECHNIQUE: Following the intravenous injection of 0.45 mCi of Indium-111 labeled white blood cells , whole body anterior and posterior planar images were obtained 24 hours post injection. COMPARISON: No prior indium scans. FINDINGS: No definite abnormal areas of increased activity are seen in the study, including visualized portion s of the head and neck, chest, abdomen, pelvis and upper and lower. Physiologic uptake is noted in the liver and spleen. IMPRESSION: No definite abnormal focal areas of increased activity. RPTAT: QQ .Zoie Camacho MD, MD Date Time Electronically viewed and signed by .Zoie Camacho MD, on 05/14/2016 13:35 .L/
--- NOTE | 2016-05-14 15:14 | PN ---
Date/Time of Note Date/Time of Note DATE: 05/14/16 TIME: 15:12 Assessment/Plan Lines/Catheters IV Catheter Type (from [facility]): Peripheral IV Gomez in Place (from [facility]): No Assessment/Plan Chief Complaint/Hosp Course 1. Fevers, chills and lymphadenopathy. Request has been placed for lymph node biopsy and we will try to schedule that after medical clearance. -pending OR availability 2. BMI 29. Encourage diet optimization and exercise eventually. 3. Human immunodeficiency virus positive. Continue medical management. 4. Hypoalbuminemia is multifactorial; however, he will benefit from nutrition optimization. 5. Hypertension. Continue medication and nutrition optimization. Encourage weight loss. Thank you Problems: Subjective 24 Hr Interval Summary Fever curve improving. No chills. Min nausea. No vomiting. No cp/sob. No cough. No martinez/dizzy/visual or neuro changes. No dysuria. Exam/Review of Systems Vital Signs Vitals Vital Signs Date Time Temp Pulse Resp B/P Pulse Ox O2 Delivery O2 Flow Rate FiO2 05/14/16 12:45 2.0 28 05/14/16 12:19 101 05/14/16 09:28 98.4 16 131/76 98 Room Air Intake and Output 05/13/16 05/13/16 05/14/16 15:00 23:00 07:00 Intake Total 100 ml 1300 ml 500 ml Output Total 1550 ml 200 ml 1300 ml Balance -1450 ml 1100 ml -800 ml Exam Free Text/Dictation GENERAL: No acute distress, obese. HEENT: Pupils equal, reactive. No scleral icterus. Mucous membranes are moist. NECK: Supple. No JVD. Multiple lymph nodes along the cervical chain. PULMONARY: Normal respiratory effort. No wheezing. HEART: S1, S2 present. ABDOMEN: Soft, nontender, no rebound, no guarding. Positive inguinal lymph nodes. EXTREMITIES: No edema. VASCULAR: Cap refill less than 2 seconds. NEUROLOGIC: Alert, oriented, moves all 4 extremities grossly. LYMPHATICS: Cervical and inguinal lymphadenopathy. Results Result Diagram: 05/14/16 0623 05/14/16 0623 YOANDY OLEARY MD May 14, 2016 15:14
[2016-05-14] MEDS ORDERED: BUPIVACAINE 0.25%/EPI (SDV) 30 ML INJ ONE (15:58)
[2016-05-14] MEDS ORDERED: LIDOCAINE 1% (MPF) 30 ML INJ ONE (15:58)
[2016-05-14] MEDS ORDERED: MIDAZOLAM 1 MG/ML 2 ML INJ ONE (16:03)
[2016-05-14] MEDS ORDERED: PROPOFOL 20 ML ONE (16:03)
[2016-05-14] MEDS ORDERED: FENTAnyl 50 MCG/ML VIAL ONE (16:03)
[2016-05-14] MEDS ORDERED: DEXAMETHASONE 4 MG/ML 1 ML INJ ONE (16:36)
[2016-05-14] MEDS ORDERED: KETOROLAC 30 MG INJ ONE (16:36)
[2016-05-14] MEDS ORDERED: CEFAZOLIN 1 GM INJ ONE (16:36)
[2016-05-14] MEDS ORDERED: ONDANSETRON 4 MG INJ ONE (16:36)
[2016-05-14] MEDS ORDERED: METOCLOPRAMIDE 10 MG INJ ONE (16:36)
--- NOTE | 2016-05-14 16:54 | OPR ---
Date/Time of Note Date/Time of Note DATE: 05/14/16 TIME: 16:49 Operative Report Procedure Date: May 14, 2016 Preoperative Diagnosis Lymphadenopathy HIV-positive Fevers chills Postoperative Diagnosis Same Operation Performed 1. Right cervical lymph node chain excisional lymph node biopsy 2. Local anesthetic injection, [id number] Surgeon: YOANDY OLEARY MD Anesthesia: MAC (Plus local) Anesthesiologist: LUANNE FOFANA MD Estimated Blood Loss: 0 - 10 ml's Specimens Right cervical lymph node in sterile water to pathology (discussed with pathologist) Tubes/Drains None Complications: None Pt Condition Post Procedure: stable Disposition: PACU Indications Per notes Risks include but are not limited to bleeding, infection, abscess, seroma, damage to the neurovascular bundle, wound formation, chronic pain, need for re- operations or further surgeries, CA, stroke, PE, DVT, pneumonia, organ failures , or even . Procedure Description Patient was brought and placed supine on the operating table. Preoperative antibiotics administered. After induction of anesthesia all pressure points well-padded. Timeout was performed. Local anesthetic was injected at the surgical site. Incision was made over the lymph node and extended through subcu tissue to the lymphatic chain. Lymph node was identified and sequentially from the tissue. The base was clamped and the lymph node excised and sent to pathology. Base was tied with 2-0 Vicryl suture. There was complete hemostasis. Wound was irrigated and closed in 2 layers with 2-0 Vicryl subcutaneous followed by 4- 0 Monocryl subcuticular and then covered with Dermabond. Patient was recovered taken back to PACU in stable condition and all counts were correct at the end of the operation 2. YOANDY OLEARY MD May 14, 2016 16:54
[2016-05-14] MEDS ORDERED: morphine (1 MG/ML) 10ML SYRINGE IV PRN ×3 (17:00)
[2016-05-14] MEDS ORDERED: MEPERIDINE 25 MG INJ IV PRN (17:00)
[2016-05-14] MEDS ORDERED: ONDANSETRON 4 MG INJ IV PRN (17:00)
[2016-05-14] MEDS ORDERED: EPHEDrine SULFATE 50 MG/5 ML SYG IV PRN (17:00)
[2016-05-14] MEDS ORDERED: HYDROmorphONE (0.2 MG/ML) 10ML SYG IV PRN ×3 (17:00)
[2016-05-14] MEDS ORDERED: DIPHENHYDRAMINE 50 MG INJ IV PRN (17:00)
[2016-05-14] MEDS: CASPOFUNGIN 50 MG in SOD CHLORIDE 0.9% 250 ML IVPB SCH (22:09)
[2016-05-14] MEDS: DIPHENHYDRAMINE 50 MG INJ IV PRN (23:33)
[2016-05-15] VITALS (13 sets, daily range): BP systolic 120–154; BP diastolic 72–98; PULSE 60–137; RESP 16–20
[2016-05-15] MEDS: AZTREONAM 2 GM in SOD CHLORIDE 0.9% 100 ML IVPB SCH ×3 (05:59→21:31)
[2016-05-15] MEDS: IMIPENEM-CILAST 500 MG/NS 100 ML IVPB SCH ×3 (05:59→18:21)
[2016-05-15] MEDS: VANCOMYCIN 1.5 GM in SOD CHLORIDE 0.9% 250 ML IVPB SCH ×2 (06:00→17:25)
[2016-05-15] MEDS: VALACYCLOVIR 500 MG TAB PO SCH ×3 (09:42→21:26)
[2016-05-15] MEDS: DARUNAVIR ETHANOLATE 800 MG TABLET PO SCH (09:42)
[2016-05-15] MEDS: ARTIFICIAL TEARS 15 ML OPH BOTH EYES SCH ×4 (09:43→21:26)
[2016-05-15] MEDS: ASPIRIN 325 MG TAB PO SCH (09:43)
[2016-05-15] MEDS: MULTIVITAMINS THERAPEUTIC TAB PO SCH (09:43)
[2016-05-15] MEDS: DILTIAZEM 60 MG TAB PO SCH (09:43)
[2016-05-15] MEDS: FAMOTIDINE 20 MG TAB PO SCH (09:43)
[2016-05-15] MEDS: LORATADINE 10 MG TAB PO SCH (09:43)
[2016-05-15] MEDS: ENOXAPARIN 40 MG/0.4 ML SYG SC SCH (10:03)
[2016-05-15] MEDS: SOD CHLORIDE 0.9% 1,000 ML IV SCH ×2 (10:08→23:30)
[2016-05-15] MEDS: ELVITEGR/COBICIST/EMTRIC/TENOF 1 EACH TABLET PO SCH (11:49)
[2016-05-15] MEDS: TRIMETHOPRIM/SULFAMETHOX (DS) TAB PO SCH (11:49)
--- NOTE | 2016-05-15 12:07 | CONS ---
Date/Time of Note Date/Time of Note DATE: 05/15/16 TIME: 11:55 Assessment/Plan Assessment/Plan Chief Complaint/Hosp Course - GNR bacteremia 05/03/16. CT of neck/chest/abd/pel shows no occult infection. - h/o recurrent neutropenic fever, infectious process vs. immune reconstitution inflammatory response. WBC tagged scan negative from 05/12/2016 - h/o eosiniophillia - advanced AIDS (CD4<20, viral load 166,544 copies in 04/21/2016 & repeat CD4 37 on 05/07/2016), was non-compliant with medications. Restarted on Stribild and darunavir on 04/23/2016. Genotype on 04/20/2016 showed a wild type virus without baseline mutations - neutropenia s/p BMBx, no e/o infections or malignancy at this time. CMV IHC negative, CMV PCR in serum was <200, cocci and crypto negative, QTB gold negative - h/o cough in 03/2016. CXR showed overinflated lungs, CT showed benign appearing sub-centimeter nodule seen at the bilateral lung bases - h/o E. coli in urine, likely colonization. completed treatment for this - LUE weakness and pain due to tear of rotator cuff muscles and bicep tendon anchor - L cervical and supraclavicular lymphadenopathy probably due to HIV infection - h/o thrush, resolved - hyperpigmented lesions on b/l LE x several months according to Pt - pruritis, probably due to atovaquone. Resolved after it was changed to Bactrim - Hx prostatitis - PSA wnl - possible HSV labialis recommendations: - pending: Bx results, bartonella serology, Parvo B19 serology, HTLV PCR, toxo serology, strongyloides serology, AFB blood cultures, CMV PCR, HHV PCR, HSV PCR , [id number], AFB blood cultures - also pending: speciation and sensitivity of GNR in blood cultures of 05/03/2016 - will repeat CD4 and HIV viral load on 05/21/2016 - may need transesophageal echo if fever persists - continue empiric vancomycin (05/04/16-), imipenem (05/05/16-), aztreonam (-), caspofungin (05/09/16-) - continue Stribild (tenofovir/emtricitabine/elvitaegravir/cobicistat) and darunavir 800mg - dosed at 800mg to simulate Prezcobix (darunavir 800mg/ cobicistat 150mg) - continue Bactrim three times a week for pneumocystis prophylaxis - continue weekly azithromycin for MAC prophylaxis - Continue valtrex 1000 mg TID x 7 days (05/11/16-) for possible HSV labialis - Ordered WBC scan to r/o infectious process d/t persistent fevers management d/w Pt the total time I took to care for this Pt today was from 1100 to 1145 Problems: Consultation Date/Type/Reason Admit Date/Time May 03, 2016 at 19:51 Initial Consult Date 05/06/16 Type of Consultation: ID Referring Provider: NAKIA LUNA MD 24 HR Interval Summary Constitutional: no complaints Detailed Summary Eyes: no complaints ENT: other (irritation of R side of neck after Bx) Respiratory: no complaints Cardiovascular: no complaints Gastrointestinal: no complaints Genitourinary: no complaints Musculoskeletal: restricted range of motion Skin: No pruritis, No rash Neurologic: focal-weakness Exam/Review of Systems Vital Signs Vitals Vital Signs Date Time Temp Pulse Resp B/P Pulse Ox O2 Delivery O2 Flow Rate FiO2 05/15/16 11:08 97.8 90 18 154/98 96 05/15/16 00:00 Room Air 05/14/16 16:10 2.0 28 Intake and Output 05/14/16 05/14/16 05/15/16 15:00 23:00 07:00 Intake Total 500 ml 1700 ml Output Total 505 ml Balance -5 ml 1700 ml Exam Constitutional: alert, oriented, well developed Psych: nl mood/affect, no complaints Head: atraumatic, normocephalic Eyes: nl conjunctiva, nl lids ENMT: nl external ears & nose, nl nasal mucosa & septum Neck: supple Respiratory: clear to auscultation, normal air movement Cardiovascular: nl pulses, regular rate and rhythm Gastrointestinal: nl liver, spleen, non-tender, soft Musculoskeletal: range of motion Extremities: normal pulses Neurological: DAMPER MAKER II-XII intact, focal weakness (LUE), nl mental status Skin: rash or lesions (hyperpigmented lesions on b/l LE) Results Result Diagram: 05/14/1662205/14/16622 Results 24 hrs Laboratory Tests Test 05/15/16 10:27 Lab Scanned Report REFERENCE LAB Medications Medications Current Medications Diphenhydramine HCl (Benadryl) 25 mg Q6H PRN IV ITCHING Last administered on 23:33; Admin Dose 25 MG; Start 05/03/16 at 23:30 Morphine Sulfate (morphine) 2 mg Q4H PRN IV PAIN Last administered on 23:34; Admin Dose 2 MG; Start 05/03/16 at 23:30 Enoxaparin Sodium (Lovenox) 40 mg DAILY SC Last administered on 05/15/16 10:03 ; Admin Dose 40 MG; Start 05/04/16 at 09:00 Acetaminophen (Tylenol Tab) 650 mg Q4H PRN PO PAIN AND OR ELEVATED TEMP Last administered on 05/14/16 00:14; Admin Dose 650 MG; Start 05/03/16 at 23:30 Darunavir (Prezista) 800 mg DAILY PO Last administered on 05/15/16 09:42; Admin Dose 800 MG; Start 05/04/16 at 09:00 Acetaminophen/ Hydrocodone Bitart ([place] (5/325)) 1 tab Q4H PRN PO PAIN Last administered on 05/10/16 06:17; Admin Dose 1 TAB; Start 05/03/16 at 23:30 Multivitamins Therapeutic (Theragran) 1 tab DAILY PO Last administered on 09:43; Admin Dose 1 TAB; Start 05/04/16 at 09:00 Azithromycin (Zithromax) 1,200 mg We@09 PO Last administered on 05/11/16 13:23 ; Admin Dose 1,200 MG; Start 05/04/16 at 09:00 Elvitegravir/ Cobicis/Emtricit/ Tenof (Stribild Tablet) 1 each DAILY PO Last administered on 05/15/16 11:49; Admin Dose 1 EACH; Start 05/04/16 at 09:00 Ibuprofen (Motrin) 400 mg Q6H PRN PO PAIN OR TEMP ABOVE 38C Last administered on 05/12/16 23:09; Admin Dose 400 MG; Start 05/04/16 at 11:30 Famotidine (Pepcid) 20 mg DAILY PO Last administered on 05/15/16 09:43; Admin Dose 20 MG; Start 05/04/16 at 12:30 Cyanocobalamin (Vitamin B12 Inj) 1,000 mcg Q28D IM Last administered on 09:45; Admin Dose 1,000 MCG; Start 05/04/16 at 09:00 Loratadine 10 mg 10 mg DAILY PO Last administered on 05/15/16 09:43; Admin Dose 10 MG; Start 05/06/16 at 09:00 Imipenem/ Cilastatin Sodium 100 ml @ 100 mls/hr Q6 IVPB Last administered on 11:51; Admin Dose 100 MLS/HR; Start 05/05/16 at 18:00 Sodium Chloride (NS) 1,000 ml @ 75 mls/hr [id number] IV Last administered on 05/15 10:08; Admin Dose 75 MLS/HR; Start 05/05/16 at 23:30 Aspirin (Aspirin) 325 mg DAILY PO Last administered on 05/15/16 09:43; Admin Dose 325 MG; Start 05/07/16 at 09:00 Eye Lubricant (Artificial Tears Oph) 2 drop QID BOTH EYES Last administered on 05/15/16 11:50; Admin Dose 2 DROP; Start 05/06/16 at 17:00 Diltiazem HCl 120 mg 120 mg DAILY PO Last administered on 05/15/16 09:43; Admin Dose 120 MG; Start 05/07/16 at 09:00 Vancomycin HCl/ Sodium Chloride (Vancocin/NS) 250 ml @ 83.333 mls/ hr Q12H IVPB Last administered on 05/15/16 06:00; Admin Dose 83.333 MLS/HR; Start at 18:00 Trimethoprim/ Sulfamethoxazole 1 tab 1 tab SuTuTh@09 PO Last administered on 11:49; Admin Dose 1 TAB; Start 05/08/16 at 09:00 Caspofungin 50 mg/ Sodium Chloride 250 ml @ 250 mls/hr Q24H IVPB Last administered on 05/14/16 22:09; Admin Dose 250 MLS/HR; Start 05/09/16 at 16:00 Aztreonam/Sodium Chloride (Azactam/NS) 100 ml @ 100 mls/hr Q8 IVPB Last administered on 05/15/16 05:59; Admin Dose 100 MLS/HR; Start 05/10/16 at 14:30 Valacyclovir HCl (Valtrex) 1,000 mg TID PO Last administered on 05/15/16 11:49 ; Admin Dose 1,000 MG; Start 05/11/16 at 13:00; Stop 05/18/16 at 12:59 JACK LAIRD M.D. May 15, 2016 12:06
--- NOTE | 2016-05-15 14:22 | PN ---
Date/Time of Note Date/Time of Note DATE: 05/15/16 TIME: 14:19 Assessment/Plan VTE Prophylaxis VTE Prophylaxis Intervention: other Lines/Catheters IV C[facility]ter Type (from [facility]): Peripheral IV Urinary Cath still in place: No Assessment/Plan Assessment/Plan -Sepsis with gram-negative rods bacteremia. Dr. Narayanan is following infectious disease consultation. Continue antibiotics per ID. Pending biopsy of left supraclavicular lymph nodes and WBC scan. -Neutropenic fever. Continue neutropenic precautions. Continue broad spectrum antibiotics. Follow up on urine and blood cultures. -Advanced AIDS. Continue the patient on Stribild, darunavir and Mepron. Continue azithromycin. - Fevers, chills and lymphadenopathy. - per surgery-sp BX - result pending - Afib with RVR, Dr. Silver is following in cardiology consultation. Continue Cardizem. - Medical non- compliance. -Hypokalemia- replet K,. am labs Sequential compression devices for deep venous thrombosis prophylaxis and Pepcid for peptic ulcer disease prophylaxis. Further recommendations based on clinical course. Plan of care discussed with Dr. Walden. Subjective 24 Hr Interval Summary Constitutional: improved Eyes: no complaints ENT: no complaints Respiratory: no complaints Cardiovascular: no complaints Gastrointestinal: no complaints Genitourinary: no complaints Musculoskeletal: no complaints Skin: no complaints Neurologic: no complaints Endocrine: no complaints Psychological: nl mood/affect Immunologic: no complaints Exam/Review of Systems Vital Signs Vitals Vital Signs Date Time Temp Pulse Resp B/P Pulse Ox O2 Delivery O2 Flow Rate FiO2 05/15/16 12:00 78 05/15/16 11:08 97.8 18 154/98 96 05/15/16 00:00 Room Air 05/14/16 16:10 2.0 28 Intake and Output 05/14/16 05/14/16 05/15/16 14:59 22:59 06:59 Intake Total 500 ml 1150 ml Output Total 505 ml Balance -5 ml 1150 ml Exam Constitutional: alert, oriented, well developed Psych: nl mood/affect Head: atraumatic Eyes: EOMI, nl sclera ENMT: nl external ears & nose Respiratory: clear to auscultation Cardiovascular: nl pulses Gastrointestinal: non-tender, soft Musculoskeletal: nl extremities to inspection Neurological: nl mental status Skin: nl turgor Lymph: nontender Results Result Diagram: 05/14/1662205/14/16622 Results 24 hrs Laboratory Tests Test 05/15/16 10:27 Lab Scanned Report REFERENCE LAB Medications Medications Current Medications Diphenhydramine HCl (Benadryl) 25 mg Q6H PRN IV ITCHING Last administered on 23:33; Admin Dose 25 MG; Start 05/03/16 at 23:30 Morphine Sulfate (morphine) 2 mg Q4H PRN IV PAIN Last administered on 23:34; Admin Dose 2 MG; Start 05/03/16 at 23:30 Enoxaparin Sodium (Lovenox) 40 mg DAILY SC Last administered on 05/15/16 10:03 ; Admin Dose 40 MG; Start 05/04/16 at 09:00 Acetaminophen (Tylenol Tab) 650 mg Q4H PRN PO PAIN AND OR ELEVATED TEMP Last administered on 05/14/16 00:14; Admin Dose 650 MG; Start 05/03/16 at 23:30 Darunavir (Prezista) 800 mg DAILY PO Last administered on 05/15/16 09:42; Admin Dose 800 MG; Start 05/04/16 at 09:00 Acetaminophen/ Hydrocodone Bitart ([place] (5/325)) 1 tab Q4H PRN PO PAIN Last administered on 05/10/16 06:17; Admin Dose 1 TAB; Start 05/03/16 at 23:30 Multivitamins Therapeutic (Theragran) 1 tab DAILY PO Last administered on 09:43; Admin Dose 1 TAB; Start 05/04/16 at 09:00 Azithromycin (Zithromax) 1,200 mg We@09 PO Last administered on 05/11/16 13:23 ; Admin Dose 1,200 MG; Start 05/04/16 at 09:00 Elvitegravir/ Cobicis/Emtricit/ Tenof (Stribild Tablet) 1 each DAILY PO Last administered on 05/15/16 11:49; Admin Dose 1 EACH; Start 05/04/16 at 09:00 Ibuprofen (Motrin) 400 mg Q6H PRN PO PAIN OR TEMP ABOVE 38C Last administered on 05/12/16 23:09; Admin Dose 400 MG; Start 05/04/16 at 11:30 Famotidine (Pepcid) 20 mg DAILY PO Last administered on 05/15/16 09:43; Admin Dose 20 MG; Start 05/04/16 at 12:30 Cyanocobalamin (Vitamin B12 Inj) 1,000 mcg Q28D IM Last administered on 09:45; Admin Dose 1,000 MCG; Start 05/04/16 at 09:00 Loratadine 10 mg 10 mg DAILY PO Last administered on 05/15/16 09:43; Admin Dose 10 MG; Start 05/06/16 at 09:00 Imipenem/ Cilastatin Sodium 100 ml @ 100 mls/hr Q6 IVPB Last administered on 11:51; Admin Dose 100 MLS/HR; Start 05/05/16 at 18:00 Sodium Chloride (NS) 1,000 ml @ 75 mls/hr [id number] IV Last administered on 05/15 10:08; Admin Dose 75 MLS/HR; Start 05/05/16 at 23:30 Aspirin (Aspirin) 325 mg DAILY PO Last administered on 05/15/16 09:43; Admin Dose 325 MG; Start 05/07/16 at 09:00 Eye Lubricant (Artificial Tears Oph) 2 drop QID BOTH EYES Last administered on 05/15/16 11:50; Admin Dose 2 DROP; Start 05/06/16 at 17:00 Diltiazem HCl 120 mg 120 mg DAILY PO Last administered on 05/15/16 09:43; Admin Dose 120 MG; Start 05/07/16 at 09:00 Vancomycin HCl/ Sodium Chloride (Vancocin/NS) 250 ml @ 83.333 mls/ hr Q12H IVPB Last administered on 05/15/16 06:00; Admin Dose 83.333 MLS/HR; Start at 18:00 Trimethoprim/ Sulfamethoxazole 1 tab 1 tab SuTuTh@09 PO Last administered on 11:49; Admin Dose 1 TAB; Start 05/08/16 at 09:00 Caspofungin 50 mg/ Sodium Chloride 250 ml @ 250 mls/hr Q24H IVPB Last administered on 05/14/16 22:09; Admin Dose 250 MLS/HR; Start 05/09/16 at 16:00 Aztreonam/Sodium Chloride (Azactam/NS) 100 ml @ 100 mls/hr Q8 IVPB Last administered on 05/15/16 05:59; Admin Dose 100 MLS/HR; Start 05/10/16 at 14:30 Valacyclovir HCl (Valtrex) 1,000 mg TID PO Last administered on 05/15/16 11:49 ; Admin Dose 1,000 MG; Start 05/11/16 at 13:00; Stop 05/18/16 at 12:59 Miscellaneous Information (*Rx Drug Level Order Reminder*) VANCOMYCIN TROUGH AT 0500 ONCE ONCE XX ; Start 05/16/16 at 05:00; Stop 05/16/16 at 05:01 MAXIME MCKEON May 15, 2016 14:22
--- NOTE | 2016-05-15 15:29 | CONS ---
Date/Time of Note Date/Time of Note DATE: 05/15/16 TIME: 15:28 Consult Date/Type/Reason Admit Date/Time May 03, 2016 at 19:51 Initial Consult Date 05/06/16 Type of Consultation: Card Ordering Provider: NAKIA LUNA MD Objective Vital Signs Date Time Temp Pulse Resp B/P Pulse Ox O2 Delivery O2 Flow Rate FiO2 05/15/16 12:00 78 05/15/16 11:08 97.8 18 154/98 96 05/15/16 00:00 Room Air 05/14/16 16:10 2.0 28 Intake and Output 05/14/16 05/14/16 05/15/16 15:00 23:00 07:00 Intake Total 500 ml 1700 ml Output Total 505 ml Balance -5 ml 1700 ml Results/Medications Result Diagram: 05/14/1662205/14/16622 Results 24 hrs Laboratory Tests Test 05/15/16 10:27 Lab Scanned Report REFERENCE LAB Medications Current Medications Diphenhydramine HCl (Benadryl) 25 mg Q6H PRN IV ITCHING Last administered on 23:33; Admin Dose 25 MG; Start 05/03/16 at 23:30 Morphine Sulfate (morphine) 2 mg Q4H PRN IV PAIN Last administered on 23:34; Admin Dose 2 MG; Start 05/03/16 at 23:30 Enoxaparin Sodium (Lovenox) 40 mg DAILY SC Last administered on 05/15/16 10:03 ; Admin Dose 40 MG; Start 05/04/16 at 09:00 Acetaminophen (Tylenol Tab) 650 mg Q4H PRN PO PAIN AND OR ELEVATED TEMP Last administered on 05/14/16 00:14; Admin Dose 650 MG; Start 05/03/16 at 23:30 Darunavir (Prezista) 800 mg DAILY PO Last administered on 05/15/16 09:42; Admin Dose 800 MG; Start 05/04/16 at 09:00 Acetaminophen/ Hydrocodone Bitart ([place] (5/325)) 1 tab Q4H PRN PO PAIN Last administered on 05/10/16 06:17; Admin Dose 1 TAB; Start 05/03/16 at 23:30 Multivitamins Therapeutic (Theragran) 1 tab DAILY PO Last administered on 09:43; Admin Dose 1 TAB; Start 05/04/16 at 09:00 Azithromycin (Zithromax) 1,200 mg We@09 PO Last administered on 05/11/16 13:23 ; Admin Dose 1,200 MG; Start 05/04/16 at 09:00 Elvitegravir/ Cobicis/Emtricit/ Tenof (Stribild Tablet) 1 each DAILY PO Last administered on 05/15/16 11:49; Admin Dose 1 EACH; Start 05/04/16 at 09:00 Ibuprofen (Motrin) 400 mg Q6H PRN PO PAIN OR TEMP ABOVE 38C Last administered on 05/12/16 23:09; Admin Dose 400 MG; Start 05/04/16 at 11:30 Famotidine (Pepcid) 20 mg DAILY PO Last administered on 05/15/16 09:43; Admin Dose 20 MG; Start 05/04/16 at 12:30 Cyanocobalamin (Vitamin B12 Inj) 1,000 mcg Q28D IM Last administered on 09:45; Admin Dose 1,000 MCG; Start 05/04/16 at 09:00 Loratadine 10 mg 10 mg DAILY PO Last administered on 05/15/16 09:43; Admin Dose 10 MG; Start 05/06/16 at 09:00 Imipenem/ Cilastatin Sodium 100 ml @ 100 mls/hr Q6 IVPB Last administered on 11:51; Admin Dose 100 MLS/HR; Start 05/05/16 at 18:00 Sodium Chloride (NS) 1,000 ml @ 75 mls/hr [id number] IV Last administered on 05/15 10:08; Admin Dose 75 MLS/HR; Start 05/05/16 at 23:30 Aspirin (Aspirin) 325 mg DAILY PO Last administered on 05/15/16 09:43; Admin Dose 325 MG; Start 05/07/16 at 09:00 Eye Lubricant (Artificial Tears Oph) 2 drop QID BOTH EYES Last administered on 05/15/16 11:50; Admin Dose 2 DROP; Start 05/06/16 at 17:00 Diltiazem HCl 120 mg 120 mg DAILY PO Last administered on 05/15/16 09:43; Admin Dose 120 MG; Start 05/07/16 at 09:00 Vancomycin HCl/ Sodium Chloride (Vancocin/NS) 250 ml @ 83.333 mls/ hr Q12H IVPB Last administered on 05/15/16 06:00; Admin Dose 83.333 MLS/HR; Start at 18:00 Trimethoprim/ Sulfamethoxazole 1 tab 1 tab SuTuTh@09 PO Last administered on 11:49; Admin Dose 1 TAB; Start 05/08/16 at 09:00 Caspofungin 50 mg/ Sodium Chloride 250 ml @ 250 mls/hr Q24H IVPB Last administered on 05/14/16 22:09; Admin Dose 250 MLS/HR; Start 05/09/16 at 16:00 Aztreonam/Sodium Chloride (Azactam/NS) 100 ml @ 100 mls/hr Q8 IVPB Last administered on 05/15/16 14:34; Admin Dose 100 MLS/HR; Start 05/10/16 at 14:30 Valacyclovir HCl (Valtrex) 1,000 mg TID PO Last administered on 05/15/16 11:49 ; Admin Dose 1,000 MG; Start 05/11/16 at 13:00; Stop 05/18/16 at 12:59 Miscellaneous Information (*Rx Drug Level Order Reminder*) VANCOMYCIN TROUGH AT 0500 ONCE ONCE XX ; Start 05/16/16 at 05:00; Stop 05/16/16 at 05:01 Assessment/Plan Chief Complaint/Hosp Course Patient iwth 66 year old M with AIDS recently started on meds, Esophagitis, HTN , who under went new onset Afib with RVR, now going at 150s but asymptomatic. His Cr went up from 0.9 to 1.5. No CP or SOB Problems: Additional Assessment/Plan Stable cardiac martinez PAD Plan per ID neuropenic will /.MUSA Valenzuela MD May 15, 2016 15:29
[2016-05-15 16:33] LABS: ADD SCAN DIFF NO
[2016-05-15 16:34] LABS: ABNORMAL IP MESSAGE 1; HEMATOCRIT 29.7 % (42.0-52.0); HEMOGLOBIN 10.5 g/dl (14.0-18.0); MEAN CORPUSCULAR HEMOGLOBIN 29.4 pg (29.0-33.0); MEAN CORPUSCULAR HGB CONC 35.4 g/dl (32.0-37.0); MEAN CORPUSCULAR VOLUME 83.2 fl (82.0-101.0); MEAN PLATELET VOLUME 9.5 fl (7.4-10.4); PLATELET COUNT 317 10^3/UL (140-415); RED BLOOD COUNT 3.57 10^6/ul (4.70-6.10); RED CELL DISTRIBUTION WIDTH 15.4 % (11.5-14.5); WHITE BLOOD COUNT 9.2 10^3/ul (4.8-10.8)
[2016-05-15] MEDS: CASPOFUNGIN 50 MG in SOD CHLORIDE 0.9% 250 ML IVPB SCH (16:39)
[2016-05-15 16:42] LABS: POTASSIUM 3.1 mmol/L (3.5-5.1)
[2016-05-15 16:45] LABS: CREATININE 0.53 mg/dl (0.61-1.24)
[2016-05-15 16:46] LABS: CALCIUM 8.1 mg/dl (8.4-10.2)
[2016-05-15] MEDS: morphine 2 MG INJ IV PRN (18:23)
[2016-05-15 18:24] LABS: EOSINOPHILS # 0.4 10^3/ul (0.0-0.5); LYMPHOCYTES # 6.6 10^3/ul (0.8-2.9); MONOCYTE # 1.2 10^3/ul (0.3-0.9); NEUTROPHIL # 0.1 10^3/ul (1.6-7.5)
--- NOTE | 2016-05-15 18:58 | PN ---
Date/Time of Note Date/Time of Note DATE: 05/15/16 TIME: 18:55 Assessment/Plan Lines/Catheters IV Catheter Type (from [facility]): Peripheral IV Gomez in Place (from [facility]): No Assessment/Plan Chief Complaint/Hosp Course 1. Fevers, chills and lymphadenopathy s/p right neck LN bx 05/14 -await path 2. BMI 29. Encourage diet optimization and exercise eventually. 3. Human immunodeficiency virus positive. Continue medical management. 4. Hypoalbuminemia is multifactorial; however, he will benefit from nutrition optimization. 5. Hypertension. Continue medication and nutrition optimization. Encourage weight loss. Thank you Problems: Subjective 24 Hr Interval Summary Min neck pain. Fever curve improved. No chills. Min nausea. No vomiting. No cp/sob. No cough. No martinez/dizzy/visual or neuro changes. No dysuria. Exam/Review of Systems Vital Signs Vitals Vital Signs Date Time Temp Pulse Resp B/P Pulse Ox O2 Delivery O2 Flow Rate FiO2 05/15/16 16:00 77 05/15/16 15:43 98.4 18 139/72 95 05/15/16 00:00 Room Air 05/14/16 16:10 2.0 28 Intake and Output 05/14/16 05/14/16 05/15/16 15:00 23:00 07:00 Intake Total 500 ml 1700 ml Output Total 505 ml Balance -5 ml 1700 ml Exam Free Text/Dictation GENERAL: No acute distress, obese. HEENT: Pupils equal, reactive. No scleral icterus. Mucous membranes are moist. NECK: Supple. No JVD. Multiple lymph nodes along the cervical chain. Right neck incision. PULMONARY: Normal respiratory effort. No wheezing. HEART: S1, S2 present. ABDOMEN: Soft, nontender, no rebound, no guarding. Positive inguinal lymph nodes. EXTREMITIES: No edema. VASCULAR: Cap refill less than 2 seconds. NEUROLOGIC: Alert, oriented, moves all 4 extremities grossly. LYMPHATICS: Cervical and inguinal lymphadenopathy. Results Result Diagram: 05/15/16 1553 05/15/16 1553 YOANDY OLEARY MD May 15, 2016 18:58
[2016-05-16] VITALS (11 sets, daily range): BP systolic 107–141; BP diastolic 64–95; PULSE 70–113; RESP 16–20
[2016-05-16] MEDS: IMIPENEM-CILAST 500 MG/NS 100 ML IVPB SCH ×4 (01:02→17:21)
[2016-05-16 05:32] LABS: ADD SCAN DIFF NO
[2016-05-16 05:46] LABS: ABNORMAL IP MESSAGE 1; HEMATOCRIT 30.9 % (42.0-52.0); HEMOGLOBIN 10.7 g/dl (14.0-18.0); MEAN CORPUSCULAR HEMOGLOBIN 28.5 pg (29.0-33.0); MEAN CORPUSCULAR HGB CONC 34.6 g/dl (32.0-37.0); MEAN CORPUSCULAR VOLUME 82.4 fl (82.0-101.0); MEAN PLATELET VOLUME 9.5 fl (7.4-10.4); PLATELET COUNT 330 10^3/UL (140-415); POTASSIUM 3.1 mmol/L (3.5-5.1); RED BLOOD COUNT 3.75 10^6/ul (4.70-6.10); RED CELL DISTRIBUTION WIDTH 15.4 % (11.5-14.5); WHITE BLOOD COUNT 11.9 10^3/ul (4.8-10.8)
[2016-05-16 05:48] LABS: CREATININE 0.66 mg/dl (0.61-1.24)
[2016-05-16] MEDS: AZTREONAM 2 GM in SOD CHLORIDE 0.9% 100 ML IVPB SCH ×3 (05:53→21:14)
[2016-05-16] MEDS: SOD CHLORIDE 0.9% 1,000 ML IV SCH (05:55)
[2016-05-16] MEDS: VANCOMYCIN 1.5 GM in SOD CHLORIDE 0.9% 250 ML IVPB SCH ×2 (07:16→17:23)
[2016-05-16] MEDS: FAMOTIDINE 20 MG TAB PO SCH (09:05)
[2016-05-16] MEDS: ASPIRIN 325 MG TAB PO SCH (09:05)
[2016-05-16] MEDS: VALACYCLOVIR 500 MG TAB PO SCH ×3 (09:05→21:12)
[2016-05-16] MEDS: ARTIFICIAL TEARS 15 ML OPH BOTH EYES SCH ×4 (09:05→21:11)
[2016-05-16] MEDS: DARUNAVIR ETHANOLATE 800 MG TABLET PO SCH (09:05)
[2016-05-16] MEDS: DILTIAZEM 60 MG TAB PO SCH (09:05)
[2016-05-16] MEDS: LORATADINE 10 MG TAB PO SCH (09:06)
[2016-05-16] MEDS: MULTIVITAMINS THERAPEUTIC TAB PO SCH (09:06)
[2016-05-16] MEDS: ENOXAPARIN 40 MG/0.4 ML SYG SC SCH (09:08)
[2016-05-16 09:53] LABS: EOSINOPHILS # 1.3 10^3/ul (0.0-0.5); LYMPHOCYTES # 6.4 10^3/ul (0.8-2.9); MONOCYTE # 2.1 10^3/ul (0.3-0.9); OVALOCYTES 1+
[2016-05-16] MEDS: ELVITEGR/COBICIST/EMTRIC/TENOF 1 EACH TABLET PO SCH (10:26)
--- NOTE | 2016-05-16 10:59 | PN ---
Date/Time of Note Date/Time of Note DATE: 05/16/16 TIME: 10:59 Assessment/Plan Lines/Catheters IV Catheter Type (from [facility]): Saline Lock Gomez in Place (from [facility]): No Assessment/Plan Chief Complaint/Hosp Course 1. Fevers, chills and lymphadenopathy s/p right neck LN bx 05/14 -await path 2. BMI 29. Encourage diet optimization and exercise eventually. 3. Human immunodeficiency virus positive. Continue medical management. 4. Hypoalbuminemia is multifactorial; however, he will benefit from nutrition optimization. 5. Hypertension. Continue medication and nutrition optimization. Encourage weight loss. Thank you Problems: Subjective 24 Hr Interval Summary Leukocytosis. Min neck pain. Fever curve improved. No chills. Min nausea. No vomiting. No cp/sob. No cough. No martinez/dizzy/visual or neuro changes. No dysuria. Exam/Review of Systems Vital Signs Vitals Vital Signs Date Time Temp Pulse Resp B/P Pulse Ox O2 Delivery O2 Flow Rate FiO2 05/16/16 08:15 79 05/16/16 07:32 98.0 18 132/90 98 05/16/16 05:43 21 05/15/16 00:00 Room Air 05/14/16 16:10 2.0 Intake and Output 05/15/16 05/15/16 05/16/16 15:00 23:00 07:00 Intake Total 100 ml 1100 ml 1800 ml Output Total 800 ml 3000 ml Balance 100 ml 300 ml -1200 ml Exam Free Text/Dictation GENERAL: No acute distress, obese. HEENT: Pupils equal, reactive. No scleral icterus. Mucous membranes are moist. NECK: Supple. No JVD. Multiple lymph nodes along the cervical chain. Right neck incision. PULMONARY: Normal respiratory effort. No wheezing. HEART: S1, S2 present. ABDOMEN: Soft, nontender, no rebound, no guarding. Positive inguinal lymph nodes. EXTREMITIES: No edema. VASCULAR: Cap refill less than 2 seconds. NEUROLOGIC: Alert, oriented, moves all 4 extremities grossly. LYMPHATICS: Cervical and inguinal lymphadenopathy. Results Result Diagram: 05/16/16 0510 05/16/16 0510 YOANDY OLEARY MD May 16, 2016 10:59
--- NOTE | 2016-05-16 12:42 | CONS ---
Date/Time of Note Date/Time of Note DATE: 05/16/16 TIME: 12:38 Assessment/Plan Assessment/Plan Chief Complaint/Hosp Course - GNR bacteremia 05/03/16. CT of neck/chest/abd/pel shows no occult infection. - h/o recurrent neutropenic fever, infectious process vs. immune reconstitution inflammatory response. WBC tagged scan negative from 05/12/2016 - h/o eosiniophillia - advanced AIDS (CD4<20, viral load 166,544 copies in 04/21/2016 & repeat CD4 37 on 05/07/2016), was non-compliant with medications. Restarted on Stribild and darunavir on 04/23/2016. Genotype on 04/20/2016 showed a wild type virus without baseline mutations - neutropenia s/p BMBx, no e/o infections or malignancy at this time. CMV IHC negative, CMV PCR in serum was <200, cocci and crypto negative, QTB gold negative - h/o cough in 03/2016. CXR showed overinflated lungs, CT showed benign appearing sub-centimeter nodule seen at the bilateral lung bases - h/o E. coli in urine, likely colonization. completed treatment for this - LUE weakness and pain due to tear of rotator cuff muscles and bicep tendon anchor - L cervical and supraclavicular lymphadenopathy probably due to HIV infection - h/o thrush, resolved - hyperpigmented lesions on b/l LE x several months according to Pt - pruritis, probably due to atovaquone. Resolved after it was changed to Bactrim - Hx prostatitis - PSA wnl - possible HSV labialis recommendations: - pending: Bx results, bartonella serology, Parvo B19 serology, HTLV PCR, toxo serology, strongyloides serology, AFB blood cultures, CMV PCR, HHV PCR, HSV PCR , [id number], AFB blood cultures - Raven at path department said that she has not received a lymph node Bx yet. She will inform us once it is received and read - also pending: speciation and sensitivity of GNR in blood cultures of 05/03/2016 - will repeat CD4 and HIV viral load on 05/21/2016 - may need transesophageal echo if fever persists - continue empiric vancomycin (05/04/16-), imipenem (05/05/16-), aztreonam (-), caspofungin (05/09/16-) - continue Stribild (tenofovir/emtricitabine/elvitaegravir/cobicistat) and darunavir 800mg - dosed at 800mg to simulate Prezcobix (darunavir 800mg/ cobicistat 150mg) - continue Bactrim three times a week for pneumocystis prophylaxis - Pt's RN confirmed that supplies of stribild and Bactrim are available - Pt requested a cane for gait assistance upon discharge; I recommend PT or OT consultation to assess his need - continue weekly azithromycin for MAC prophylaxis - Continue valtrex 1000 mg TID x 7 days (05/11/16-) for possible HSV labialis management d/w Pt Problems: Consultation Date/Type/Reason Admit Date/Time May 03, 2016 at 19:51 Initial Consult Date 05/06/16 Type of Consultation: ID Referring Provider: NAKIA LUNA MD 24 HR Interval Summary Constitutional: no complaints Detailed Summary Eyes: no complaints ENT: no complaints Respiratory: no complaints Cardiovascular: no complaints Gastrointestinal: no complaints Genitourinary: no complaints Musculoskeletal: bone/joint pain, restricted range of motion Skin: skin lesions (on b/l LE) Neurologic: no complaints Endocrine: no complaints Lymphatic: no complaints Psychological: no complaints Exam/Review of Systems Vital Signs Vitals Vital Signs Date Time Temp Pulse Resp B/P Pulse Ox O2 Delivery O2 Flow Rate FiO2 05/16/16 11:11 98.6 87 18 115/90 98 05/16/16 05:43 21 05/15/16 00:00 Room Air 05/14/16 16:10 2.0 Intake and Output 05/15/16 05/15/16 05/16/16 15:00 23:00 07:00 Intake Total 100 ml 1100 ml 1800 ml Output Total 800 ml 3000 ml Balance 100 ml 300 ml -1200 ml Exam Constitutional: alert, oriented, well developed Psych: nl mood/affect, no complaints Head: atraumatic, normocephalic Eyes: nl conjunctiva, nl lids ENMT: nl external ears & nose, nl nasal mucosa & septum Neck: supple Respiratory: clear to auscultation, normal air movement Cardiovascular: nl pulses, regular rate and rhythm Gastrointestinal: non-tender, soft Musculoskeletal: range of motion, No joint tenderness, No swelling Extremities: No edema Neurological: [employer] DEVEL[employer] II-XII intact, nl mental status, nl speech Skin: rash or lesions (hyperpigmented lesions on b/l LE) Results Result Diagram: 05/16/16 0510 05/16/16 0510 Results 24 hrs Laboratory Tests Test 05/15/16 15:53 05/16/16 05:10 White Blood Count 9.2 # 11.9 #H Red Blood Count 3.57 L 3.75 L Hemoglobin 10.5 L 10.7 L Hematocrit 29.7 L 30.9 L Mean Corpuscular Volume 83.2 82.4 Mean Corpuscular Hemoglobin 29.4 28.5 L Mean Corpuscular Hemoglobin Concent 35.4 34.6 Red Cell Distribution Width 15.4 H 15.4 H Platelet Count 317 330 Mean Platelet Volume 9.5 9.5 Neutrophils % 1.0 L 8.0 L Band Neutrophils % 1.0 Lymphocytes % 54.0 H Reactive Lymphocytes % 9.0 9.0 Monocytes % 13.0 H 18.0 H Eosinophils % 4.0 11.0 H Neutrophils # 0.1 L 1.0 L Lymphocytes # 6.6 H 6.4 H Monocytes # 1.2 H 2.1 H Eosinophils # 0.4 1.3 H Sodium Level 136 143 Potassium Level 3.1 L 3.1 L Chloride Level 105 108 Carbon Dioxide Level 21 26 Anion Gap 13 12 Blood Urea Nitrogen 12 9 Creatinine 0.53 L 0.66 Glucose Level 164 116 # Calcium Level 8.1 L 8.0 L Ovalocytes 1+ Vancomycin Level Trough 11.9 Medications Medications Current Medications Diphenhydramine HCl (Benadryl) 25 mg Q6H PRN IV ITCHING Last administered on 23:33; Admin Dose 25 MG; Start 05/03/16 at 23:30 Morphine Sulfate (morphine) 2 mg Q4H PRN IV PAIN Last administered on 18:23; Admin Dose 2 MG; Start 05/03/16 at 23:30 Enoxaparin Sodium (Lovenox) 40 mg DAILY SC Last administered on 05/16/16 09:08 ; Admin Dose 40 MG; Start 05/04/16 at 09:00 Acetaminophen (Tylenol Tab) 650 mg Q4H PRN PO PAIN AND OR ELEVATED TEMP Last administered on 05/14/16 00:14; Admin Dose 650 MG; Start 05/03/16 at 23:30 Darunavir (Prezista) 800 mg DAILY PO Last administered on 05/16/16 09:05; Admin Dose 800 MG; Start 05/04/16 at 09:00 Acetaminophen/ Hydrocodone Bitart ([place] (5/325)) 1 tab Q4H PRN PO PAIN Last administered on 05/10/16 06:17; Admin Dose 1 TAB; Start 05/03/16 at 23:30 Multivitamins Therapeutic (Theragran) 1 tab DAILY PO Last administered on 09:06; Admin Dose 1 TAB; Start 05/04/16 at 09:00 Azithromycin (Zithromax) 1,200 mg We@09 PO Last administered on 05/11/16 13:23 ; Admin Dose 1,200 MG; Start 05/04/16 at 09:00 Elvitegravir/ Cobicis/Emtricit/ Tenof (Stribild Tablet) 1 each DAILY PO Last administered on 05/16/16 10:26; Admin Dose 1 EACH; Start 05/04/16 at 09:00 Ibuprofen (Motrin) 400 mg Q6H PRN PO PAIN OR TEMP ABOVE 38C Last administered on 05/12/16 23:09; Admin Dose 400 MG; Start 05/04/16 at 11:30 Famotidine (Pepcid) 20 mg DAILY PO Last administered on 05/16/16 09:05; Admin Dose 20 MG; Start 05/04/16 at 12:30 Cyanocobalamin (Vitamin B12 Inj) 1,000 mcg Q28D IM Last administered on 09:45; Admin Dose 1,000 MCG; Start 05/04/16 at 09:00 Loratadine 10 mg 10 mg DAILY PO Last administered on 05/16/16 09:06; Admin Dose 10 MG; Start 05/06/16 at 09:00 Imipenem/ Cilastatin Sodium 100 ml @ 100 mls/hr Q6 IVPB Last administered on 11:57; Admin Dose 100 MLS/HR; Start 05/05/16 at 18:00 Sodium Chloride (NS) 1,000 ml @ 75 mls/hr [id number] IV Last administered on 05/16 05:55; Admin Dose 75 MLS/HR; Start 05/05/16 at 23:30 Aspirin (Aspirin) 325 mg DAILY PO Last administered on 05/16/16 09:05; Admin Dose 325 MG; Start 05/07/16 at 09:00 Eye Lubricant (Artificial Tears Oph) 2 drop QID BOTH EYES Last administered on 05/16/16 11:57; Admin Dose 2 DROP; Start 05/06/16 at 17:00 Diltiazem HCl 120 mg 120 mg DAILY PO Last administered on 05/16/16 09:05; Admin Dose 120 MG; Start 05/07/16 at 09:00 Vancomycin HCl/ Sodium Chloride (Vancocin/NS) 250 ml @ 83.333 mls/ hr Q12H IVPB Last administered on 05/16/16 07:16; Admin Dose 83.333 MLS/HR; Start at 18:00 Trimethoprim/ Sulfamethoxazole 1 tab 1 tab SuTuTh@09 PO Last administered on 11:49; Admin Dose 1 TAB; Start 05/08/16 at 09:00 Caspofungin 50 mg/ Sodium Chloride 250 ml @ 250 mls/hr Q24H IVPB Last administered on 05/15/16 16:39; Admin Dose 250 MLS/HR; Start 05/09/16 at 16:00 Aztreonam/Sodium Chloride (Azactam/NS) 100 ml @ 100 mls/hr Q8 IVPB Last administered on 05/16/16 05:53; Admin Dose 100 MLS/HR; Start 05/10/16 at 14:30 Valacyclovir HCl (Valtrex) 1,000 mg TID PO Last administered on 05/16/16 09:05 ; Admin Dose 1,000 MG; Start 05/11/16 at 13:00; Stop 05/18/16 at 12:59 JACK LAIRD M.D. May 16, 2016 12:41
--- NOTE | 2016-05-16 15:10 | PN ---
Date/Time of Note Date/Time of Note DATE: 05/16/16 TIME: 15:08 Assessment/Plan VTE Prophylaxis VTE Prophylaxis Intervention: SCD's Lines/Catheters IV [facility] Type [facility] Saline Lock Urinary Cath still in place: No Assessment/Plan Chief Complaint/Hosp Course ASSESSMENT AND PLAN: -Sepsis with gram-negative rods bacteremia. Dr. Lady reese is following infectious disease consultation. Continue antibiotics per ID. s/p biopsy of left supraclavicular lymph node, f/up on path. -Neutropenic fever. Continue neutropenic precautions. Continue broad spectrum antibiotics. Follow up on urine and blood cultures. -Advanced AIDS. Continue the patient on Stribild, darunavir and Mepron. Continue azithromycin. - Afib with RVR, Dr. Silver is following in cardiology consultation. Continue Cardizem. - Medical non- compliance. Sequential compression devices for deep venous thrombosis prophylaxis and Pepcid for peptic ulcer disease prophylaxis. Further recommendations based on clinical course. Plan of care discussed with Dr. Walden. Problems: Subjective 24 Hr Interval Summary Free Text/Dictation Patient denies any fever nausea vomiting, patient states that he feels better, status post lymph node biopsy, incision is is intact, pain is well controlled. Exam/Review of Systems Vital Signs Vitals Vital Signs Date Time Temp Pulse Resp B/P Pulse Ox O2 Delivery O2 Flow Rate FiO2 05/16/16 12:38 113 05/16/16 11:11 98.6 18 115/90 98 05/16/16 05:43 21 05/15/16 00:00 Room Air 05/14/16 16:10 2.0 Intake and Output 05/15/16 05/15/16 05/16/16 15:00 23:00 07:00 Intake Total 100 ml 1100 ml 1800 ml Output Total 800 ml 3000 ml Balance 100 ml 300 ml -1200 ml Exam GENERAL: Well-developed, well-nourished male in no acute distress. HEENT: Head is atraumatic, normocephalic. PERRLA. NECK: Supple. LUNGS: Slightly diminished at the bases. Clear in the upper lobes. CARDIOVASCULAR: The patient is tachycardic. Normal S1, S2. No murmurs, gallops, clicks, rubs noted. ABDOMEN: Round, soft, nondistended, nontender. Bowel sounds present. No guarding, no rebound tenderness. EXTREMITIES: There is no edema, clubbing, cyanosis. Pulses equal bilaterally 2 +. SKIN: The patient has diffuse erythema all over his body. There is no maculopapular rash, no petechiae. No ecchymosis noted. NEUROLOGIC: Patient is awake, alert and oriented. Results Result Diagram: 05/16/16 0510 05/16/16 0510 Results 24 hrs Laboratory Tests Test 05/15/16 15:53 05/16/16 05:10 White Blood Count 9.2 # 11.9 #H Red Blood Count 3.57 L 3.75 L Hemoglobin 10.5 L 10.7 L Hematocrit 29.7 L 30.9 L Mean Corpuscular Volume 83.2 82.4 Mean Corpuscular Hemoglobin 29.4 28.5 L Mean Corpuscular Hemoglobin Concent 35.4 34.6 Red Cell Distribution Width 15.4 H 15.4 H Platelet Count 317 330 Mean Platelet Volume 9.5 9.5 Neutrophils % 1.0 L 8.0 L Band Neutrophils % 1.0 Lymphocytes % 54.0 H Reactive Lymphocytes % 9.0 9.0 Monocytes % 13.0 H 18.0 H Eosinophils % 4.0 11.0 H Neutrophils # 0.1 L 1.0 L Lymphocytes # 6.6 H 6.4 H Monocytes # 1.2 H 2.1 H Eosinophils # 0.4 1.3 H Sodium Level 136 143 Potassium Level 3.1 L 3.1 L Chloride Level 105 108 Carbon Dioxide Level 21 26 Anion Gap 13 12 Blood Urea Nitrogen 12 9 Creatinine 0.53 L 0.66 Glucose Level 164 116 # Calcium Level 8.1 L 8.0 L Ovalocytes 1+ Vancomycin Level Trough 11.9 Medications Medications Current Medications Diphenhydramine HCl (Benadryl) 25 mg Q6H PRN IV ITCHING Last administered on 23:33; Admin Dose 25 MG; Start 05/03/16 at 23:30 Morphine Sulfate (morphine) 2 mg Q4H PRN IV PAIN Last administered on 18:23; Admin Dose 2 MG; Start 05/03/16 at 23:30 Enoxaparin Sodium (Lovenox) 40 mg DAILY SC Last administered on 05/16/16 09:08 ; Admin Dose 40 MG; Start 05/04/16 at 09:00 Acetaminophen (Tylenol Tab) 650 mg Q4H PRN PO PAIN AND OR ELEVATED TEMP Last administered on 05/14/16 00:14; Admin Dose 650 MG; Start 05/03/16 at 23:30 Darunavir (Prezista) 800 mg DAILY PO Last administered on 05/16/16 09:05; Admin Dose 800 MG; Start 05/04/16 at 09:00 Acetaminophen/ Hydrocodone Bitart ([place] (5/325)) 1 tab Q4H PRN PO PAIN Last administered on 05/10/16 06:17; Admin Dose 1 TAB; Start 05/03/16 at 23:30 Multivitamins Therapeutic (Theragran) 1 tab DAILY PO Last administered on 09:06; Admin Dose 1 TAB; Start 05/04/16 at 09:00 Azithromycin (Zithromax) 1,200 mg We@09 PO Last administered on 05/11/16 13:23 ; Admin Dose 1,200 MG; Start 05/04/16 at 09:00 Elvitegravir/ Cobicis/Emtricit/ Tenof (Stribild Tablet) 1 each DAILY PO Last administered on 05/16/16 10:26; Admin Dose 1 EACH; Start 05/04/16 at 09:00 Ibuprofen (Motrin) 400 mg Q6H PRN PO PAIN OR TEMP ABOVE 38C Last administered on 05/12/16 23:09; Admin Dose 400 MG; Start 05/04/16 at 11:30 Famotidine (Pepcid) 20 mg DAILY PO Last administered on 05/16/16 09:05; Admin Dose 20 MG; Start 05/04/16 at 12:30 Cyanocobalamin (Vitamin B12 Inj) 1,000 mcg Q28D IM Last administered on 09:45; Admin Dose 1,000 MCG; Start 05/04/16 at 09:00 Loratadine 10 mg 10 mg DAILY PO Last administered on 05/16/16 09:06; Admin Dose 10 MG; Start 05/06/16 at 09:00 Imipenem/ Cilastatin Sodium 100 ml @ 100 mls/hr Q6 IVPB Last administered on 11:57; Admin Dose 100 MLS/HR; Start 05/05/16 at 18:00 Sodium Chloride (NS) 1,000 ml @ 75 mls/hr [id number] IV Last administered on 05/16 05:55; Admin Dose 75 MLS/HR; Start 05/05/16 at 23:30 Aspirin (Aspirin) 325 mg DAILY PO Last administered on 05/16/16 09:05; Admin Dose 325 MG; Start 05/07/16 at 09:00 Eye Lubricant (Artificial Tears Oph) 2 drop QID BOTH EYES Last administered on 05/16/16 11:57; Admin Dose 2 DROP; Start 05/06/16 at 17:00 Diltiazem HCl 120 mg 120 mg DAILY PO Last administered on 05/16/16 09:05; Admin Dose 120 MG; Start 05/07/16 at 09:00 Vancomycin HCl/ Sodium Chloride (Vancocin/NS) 250 ml @ 83.333 mls/ hr Q12H IVPB Last administered on 05/16/16 07:16; Admin Dose 83.333 MLS/HR; Start at 18:00 Trimethoprim/ Sulfamethoxazole 1 tab 1 tab SuTuTh@09 PO Last administered on 11:49; Admin Dose 1 TAB; Start 05/08/16 at 09:00 Caspofungin 50 mg/ Sodium Chloride 250 ml @ 250 mls/hr Q24H IVPB Last administered on 05/15/16 16:39; Admin Dose 250 MLS/HR; Start 05/09/16 at 16:00 Aztreonam/Sodium Chloride (Azactam/NS) 100 ml @ 100 mls/hr Q8 IVPB Last administered on 05/16/16 14:08; Admin Dose 100 MLS/HR; Start 05/10/16 at 14:30 Valacyclovir HCl (Valtrex) 1,000 mg TID PO Last administered on 05/16/16 14:09 ; Admin Dose 1,000 MG; Start 05/11/16 at 13:00; Stop 05/18/16 at 12:59 AAKASH MITCHELL May 16, 2016 15:10
[2016-05-16] MEDS: CASPOFUNGIN 50 MG in SOD CHLORIDE 0.9% 250 ML IVPB SCH (16:17)
[2016-05-17] MEDS: SOD CHLORIDE 0.9% 1,000 ML IV SCH ×2 (00:15→14:56)
[2016-05-17] MEDS: IMIPENEM-CILAST 500 MG/NS 100 ML IVPB SCH ×4 (00:16→18:28)
[2016-05-17 00:18] VITALS: BP 127/85; RESP 19
[2016-05-17] MEDS ORDERED: POTASSIUM CHLORIDE (SR) 20 MEQ TAB PO ONE (00:30)
[2016-05-17] MEDS: morphine 2 MG INJ IV PRN ×2 (00:34→22:00)
[2016-05-17] MEDS: AZTREONAM 2 GM in SOD CHLORIDE 0.9% 100 ML IVPB SCH ×3 (06:34→22:01)
[2016-05-17 06:41] LABS: ADD SCAN DIFF NO
[2016-05-17 06:55] LABS: ABNORMAL IP MESSAGE 1; BASOPHIL # 0.1 10^3/ul (0.0-0.1); BASOPHILS % 0.7 % (0.0-2.0); EOSINOPHILS # 4.7 10^3/ul (0.0-0.5); EOSINOPHILS % 27.2 % (0.0-7.0); HEMATOCRIT 32.1 % (42.0-52.0); HEMOGLOBIN 10.9 g/dl (14.0-18.0); LYMPHOCYTES # 11.2 10^3/ul (0.8-2.9); MEAN CORPUSCULAR HEMOGLOBIN 28.6 pg (29.0-33.0); MEAN CORPUSCULAR VOLUME 84.3 fl (82.0-101.0); MEAN PLATELET VOLUME 9.7 fl (7.4-10.4); MONOCYTE # 0.9 10^3/ul (0.3-0.9); MONOCYTES % 5.4 % (0.0-11.0); NEUTROPHIL # 0.2 10^3/ul (1.6-7.5); NEUTROPHILS % 1.5 % (39.0-77.0); NUCLEATED RED BLOOD CELLS% 0.2 /100WBC (0.0-0.0); PLATELET COUNT 338 10^3/UL (140-415); RED BLOOD COUNT 3.81 10^6/ul (4.70-6.10); RED CELL DISTRIBUTION WIDTH 16.5 % (11.5-14.5); WHITE BLOOD COUNT 17.3 10^3/ul (4.8-10.8)
[2016-05-17 08:02] LABS: CREATININE 0.6 mg/dl (0.61-1.24); POTASSIUM 3.5 mmol/L (3.5-5.1)
[2016-05-17 08:11] VITALS: BP 132/98; RESP 16
[2016-05-17] MEDS: VANCOMYCIN 1.5 GM in SOD CHLORIDE 0.9% 250 ML IVPB SCH ×2 (08:48→20:49)
--- NOTE | 2016-05-17 09:33 | CONS ---
Date/Time of Note Date/Time of Note DATE: 05/17/16 TIME: 09:30 Assessment/Plan Assessment/Plan Chief Complaint/Hosp Course - GNR bacteremia 05/03/16. CT of neck/chest/abd/pel shows no occult infection. - h/o recurrent neutropenic fever, infectious process vs. immune reconstitution inflammatory response. WBC tagged scan negative from 05/12/2016 - h/o eosiniophillia - advanced AIDS (CD4<20, viral load 166,544 copies in 04/21/2016 & repeat CD4 37 on 05/07/2016), was non-compliant with medications. Restarted on Stribild and darunavir on 04/23/2016. Genotype on 04/20/2016 showed a wild type virus without baseline mutations - neutropenia s/p BMBx, no e/o infections or malignancy at this time. CMV IHC negative, CMV PCR in serum was <200, cocci and crypto negative, QTB gold negative - h/o cough in 03/2016. CXR showed overinflated lungs, CT showed benign appearing sub-centimeter nodule seen at the bilateral lung bases - h/o E. coli in urine, likely colonization. completed treatment for this - LUE weakness and pain due to tear of rotator cuff muscles and bicep tendon anchor - L cervical and supraclavicular lymphadenopathy probably due to HIV infection - h/o thrush, resolved - hyperpigmented lesions on b/l LE x several months according to Pt - pruritis, probably due to atovaquone. Resolved after it was changed to Bactrim - Hx prostatitis - PSA wnl - possible HSV labialis - so far: 1,7-yvjd-K-glucan level negative on 05/11/2016, CMV PCR undetectable, HSV PCR undetectable recommendations: - Note: Sindi at send out lab learned from [facility] that Gram negative bacteria in his blood cultures on 05/03/2016 were delivered non-viable. German at micro lab re- sent viable specimen to [facility] for speciation and identification. It is Gram variable bacteria, non-acineto, non-haemophilus - pending: Bx results, bartonella serology, Parvo B19 serology, HTLV PCR, toxo serology, strongyloides serology, AFB blood cultures, HHV PCR - Rupali at path department said that Pt's Bx result is not available yet - will repeat pancultures today due to recurrent leukocytosis - will repeat CD4 and HIV viral load on 05/21/2016 - continue empiric vancomycin (05/04/16-), imipenem (05/05/16-), aztreonam (-), caspofungin (05/09/16-) - continue Stribild (tenofovir/emtricitabine/elvitaegravir/cobicistat) and darunavir 800mg - dosed at 800mg to simulate Prezcobix (darunavir 800mg/ cobicistat 150mg) - continue Bactrim three times a week for pneumocystis prophylaxis - continue weekly azithromycin for MAC prophylaxis - Continue valtrex 1000 mg TID x 7 days (05/11/16-) for possible HSV labialis - place Pt under neutropenic precautions again management d/w Pt, her RN and German at micro lab the total time I took to care for this Pt today was from 1100 to 1145 Problems: Consultation Date/Type/Reason Admit Date/Time May 03, 2016 at 19:51 Initial Consult Date 05/06/16 Type of Consultation: ID Referring Provider: NAKIA LUNA MD Detailed Summary Eyes: no complaints ENT: no complaints Respiratory: no complaints Cardiovascular: no complaints Gastrointestinal: no complaints Genitourinary: no complaints Musculoskeletal: bone/joint pain, restricted range of motion Skin: no complaints Neurologic: no complaints Exam/Review of Systems Vital Signs Vitals Vital Signs Date Time Temp Pulse Resp B/P Pulse Ox O2 Delivery O2 Flow Rate FiO2 05/17/16 08:11 97.8 91 16 132/98 98 05/16/16 05:43 21 05/15/16 00:00 Room Air 05/14/16 16:10 2.0 Intake and Output 05/16/16 05/16/16 05/17/16 15:00 23:00 07:00 Intake Total 300 ml 1400 ml 1182.5 ml Output Total 2800 ml 2850 ml Balance 300 ml -1400 ml -1667.5 ml Exam Constitutional: alert, oriented, well developed Psych: nl mood/affect, no complaints Head: atraumatic, normocephalic Eyes: nl conjunctiva, nl lids ENMT: nl external ears & nose, nl nasal mucosa & septum Neck: supple Respiratory: clear to auscultation, normal air movement Cardiovascular: nl pulses, regular rate and rhythm Gastrointestinal: non-tender, soft Musculoskeletal: range of motion Extremities: No edema Neurological: [employer] II-XII intact, focal weakness (LUE), nl mental status, nl speech Skin: rash or lesions (hyperpigmented lesions on b/l LE) Results Result Diagram: 05/17/16 0530 05/17/16 0540 Results 24 hrs Laboratory Tests Test 05/17/16 05:30 05/17/16 05:40 05/17/16 07:20 White Blood Count 17.3 #H Red Blood Count 3.81 L Hemoglobin 10.9 L Hematocrit 32.1 L Mean Corpuscular Volume 84.3 Mean Corpuscular Hemoglobin 28.6 L Mean Corpuscular Hemoglobin Concent 34.0 Red Cell Distribution Width 16.5 H Platelet Count 338 Mean Platelet Volume 9.7 Neutrophils % 1.5 L Lymphocytes % 65.0 H Monocytes % 5.4 Eosinophils % 27.2 H Basophils % 0.7 Nucleated Red Blood Cells % 0.2 H Neutrophils # 0.2 L Lymphocytes # 11.2 H Monocytes # 0.9 Eosinophils # 4.7 H Basophils # 0.1 Nucleated Red Blood Cells # 0.0 Sodium Level 138 Potassium Level 3.5 Chloride Level 106 Carbon Dioxide Level 27 Anion Gap 9 Blood Urea Nitrogen 15 Creatinine 0.60 L Glucose Level 87 Calcium Level 8.0 L Bedside Glucose 85 Medications Medications Current Medications Diphenhydramine HCl (Benadryl) 25 mg Q6H PRN IV ITCHING Last administered on 23:33; Admin Dose 25 MG; Start 05/03/16 at 23:30 Morphine Sulfate (morphine) 2 mg Q4H PRN IV PAIN Last administered on 00:34; Admin Dose 2 MG; Start 05/03/16 at 23:30 Enoxaparin Sodium (Lovenox) 40 mg DAILY SC Last administered on 05/16/16 09:08 ; Admin Dose 40 MG; Start 05/04/16 at 09:00 Acetaminophen (Tylenol Tab) 650 mg Q4H PRN PO PAIN AND OR ELEVATED TEMP Last administered on 05/14/16 00:14; Admin Dose 650 MG; Start 05/03/16 at 23:30 Darunavir (Prezista) 800 mg DAILY PO Last administered on 05/16/16 09:05; Admin Dose 800 MG; Start 05/04/16 at 09:00 Acetaminophen/ Hydrocodone Bitart ([place] (5/325)) 1 tab Q4H PRN PO PAIN Last administered on 05/10/16 06:17; Admin Dose 1 TAB; Start 05/03/16 at 23:30 Multivitamins Therapeutic (Theragran) 1 tab DAILY PO Last administered on 09:06; Admin Dose 1 TAB; Start 05/04/16 at 09:00 Azithromycin (Zithromax) 1,200 mg We@09 PO Last administered on 05/11/16 13:23 ; Admin Dose 1,200 MG; Start 05/04/16 at 09:00 Elvitegravir/ Cobicis/Emtricit/ Tenof (Stribild Tablet) 1 each DAILY PO Last administered on 05/16/16 10:26; Admin Dose 1 EACH; Start 05/04/16 at 09:00 Ibuprofen (Motrin) 400 mg Q6H PRN PO PAIN OR TEMP ABOVE 38C Last administered on 05/12/16 23:09; Admin Dose 400 MG; Start 05/04/16 at 11:30 Famotidine (Pepcid) 20 mg DAILY PO Last administered on 05/16/16 09:05; Admin Dose 20 MG; Start 05/04/16 at 12:30 Cyanocobalamin (Vitamin B12 Inj) 1,000 mcg Q28D IM Last administered on 09:45; Admin Dose 1,000 MCG; Start 05/04/16 at 09:00 Loratadine 10 mg 10 mg DAILY PO Last administered on 05/16/16 09:06; Admin Dose 10 MG; Start 05/06/16 at 09:00 Imipenem/ Cilastatin Sodium 100 ml @ 100 mls/hr Q6 IVPB Last administered on 05:41; Admin Dose 100 MLS/HR; Start 05/05/16 at 18:00 Sodium Chloride (NS) 1,000 ml @ 75 mls/hr [id number] IV Last administered on 05/17 00:15; Admin Dose 75 MLS/HR; Start 05/05/16 at 23:30 Aspirin (Aspirin) 325 mg DAILY PO Last administered on 05/16/16 09:05; Admin Dose 325 MG; Start 05/07/16 at 09:00 Eye Lubricant (Artificial Tears Oph) 2 drop QID BOTH EYES Last administered on 05/16/16 21:11; Admin Dose 2 DROP; Start 05/06/16 at 17:00 Diltiazem HCl 120 mg 120 mg DAILY PO Last administered on 05/16/16 09:05; Admin Dose 120 MG; Start 05/07/16 at 09:00 Vancomycin HCl/ Sodium Chloride (Vancocin/NS) 250 ml @ 83.333 mls/ hr Q12H IVPB Last administered on 05/17/16 08:48; Admin Dose 83.333 MLS/HR; Start at 18:00 Trimethoprim/ Sulfamethoxazole 1 tab 1 tab SuTuTh@09 PO Last administered on 11:49; Admin Dose 1 TAB; Start 05/08/16 at 09:00 Caspofungin 50 mg/ Sodium Chloride 250 ml @ 250 mls/hr Q24H IVPB Last administered on 05/16/16 16:17; Admin Dose 250 MLS/HR; Start 05/09/16 at 16:00 Aztreonam/Sodium Chloride (Azactam/NS) 100 ml @ 100 mls/hr Q8 IVPB Last administered on 05/17/16 06:34; Admin Dose 100 MLS/HR; Start 05/10/16 at 14:30 Valacyclovir HCl (Valtrex) 1,000 mg TID PO Last administered on 05/16/16 21:12 ; Admin Dose 1,000 MG; Start 05/11/16 at 13:00; Stop 05/18/16 at 12:59 JACK LAIRD M.D. May 17, 2016 09:33
[2016-05-17] MEDS: LORATADINE 10 MG TAB PO SCH (10:42)
[2016-05-17] MEDS: MULTIVITAMINS THERAPEUTIC TAB PO SCH (10:42)
[2016-05-17] MEDS: FAMOTIDINE 20 MG TAB PO SCH (10:42)
[2016-05-17] MEDS: ASPIRIN 325 MG TAB PO SCH (10:42)
[2016-05-17] MEDS: DARUNAVIR ETHANOLATE 800 MG TABLET PO SCH (10:43)
[2016-05-17] MEDS: VALACYCLOVIR 500 MG TAB PO SCH ×3 (10:43→20:28)
[2016-05-17] MEDS: DILTIAZEM 60 MG TAB PO SCH (10:44)
[2016-05-17] MEDS: ENOXAPARIN 40 MG/0.4 ML SYG SC SCH (10:44)
[2016-05-17] MEDS: TRIMETHOPRIM/SULFAMETHOX (DS) TAB PO SCH (11:33)
[2016-05-17] MEDS: ELVITEGR/COBICIST/EMTRIC/TENOF 1 EACH TABLET PO SCH (11:33)
[2016-05-17] MEDS: ARTIFICIAL TEARS 15 ML OPH BOTH EYES SCH ×4 (11:33→20:28)
[2016-05-17 11:39] LABS: HERPES SIMPLEX 1 DNA NOT DETECTED; HERPES SIMPLEX 2 DNA NOT DETECTED; HERPES SIMPLEX PCR SOURCE CEREBROSPINAL FLUID
--- NOTE | 2016-05-17 14:19 | RADRPT ---
PROCEDURE: XR Chest. CLINICAL INDICATION: Shortness of breath. Leukocytosis. TECHNIQUE: Single frontal view. COMPARISON: Chest x-ray dated 05/03/2016. CT scan of the chest dated 04/18/2016. FINDINGS: The lungs are clear. The heart is mildly enlarged. There is calcification in the aorta consistent with atherosclerosis. There is no pleural effusion. There is no pneumothorax. IMPRESSION: 1. Mild cardiomegaly. 2. Atherosclerosis. 3. Clear lungs. Pulmonary nodule seen on prior CT scan are not visualized. RPTAT: QQ .Danish Whelan MD, Date Time Electronically viewed and signed by .Danish Whelan MD, MD on 05/17/2016 14:19 .R/
--- NOTE | 2016-05-17 16:17 | PN ---
Date/Time of Note Date/Time of Note DATE: 05/17/16 TIME: 16:15 Assessment/Plan VTE Prophylaxis VTE Prophylaxis Intervention: SCD's Lines/Catheters IV Catheter Type (from [facility]): Peripheral IV Urinary Cath still in place: No Assessment/Plan Chief Complaint/Hosp Course ASSESSMENT AND PLAN: -Sepsis with gram-negative rods bacteremia. Dr. Lady reese is following infectious disease consultation. Continue antibiotics per ID. S/p biopsy of left supraclavicular lymph node, f/up on path. -Neutropenic fever. Continue neutropenic precautions. Continue broad spectrum antibiotics. Follow up on urine and blood cultures. -Advanced AIDS. Continue the patient on Stribild, darunavir and Mepron. Continue azithromycin. - Afib with RVR, Dr. Silver is following in cardiology consultation. Continue Cardizem. - Medical non- compliance. Sequential compression devices for deep venous thrombosis prophylaxis and Pepcid for peptic ulcer disease prophylaxis. Further recommendations based on clinical course. Plan of care discussed with Dr. Walden. Problems: Subjective 24 Hr Interval Summary Free Text/Dictation Patient denies any fever, stated states that he feels better, however with increased leukocytosis today. Exam/Review of Systems Vital Signs Vitals Vital Signs Date Time Temp Pulse Resp B/P Pulse Ox O2 Delivery O2 Flow Rate FiO2 05/17/16 08:11 97.8 91 16 132/98 98 05/16/16 05:43 21 05/15/16 00:00 Room Air 05/14/16 16:10 2.0 Intake and Output 05/16/16 05/16/16 05/17/16 15:00 23:00 07:00 Intake Total 300 ml 1400 ml 1182.5 ml Output Total 2800 ml 2850 ml Balance 300 ml -1400 ml -1667.5 ml Exam GENERAL: Well-developed, well-nourished male in no acute distress. HEENT: Head is atraumatic, normocephalic. PERRLA. NECK: Supple. LUNGS: Slightly diminished at the bases. Clear in the upper lobes. CARDIOVASCULAR: The patient is tachycardic. Normal S1, S2. No murmurs, gallops, clicks, rubs noted. ABDOMEN: Round, soft, nondistended, nontender. Bowel sounds present. No guarding, no rebound tenderness. EXTREMITIES: There is no edema, clubbing, cyanosis. Pulses equal bilaterally 2 +. SKIN: The patient has diffuse erythema all over his body. There is no maculopapular rash, no petechiae. No ecchymosis noted. NEUROLOGIC: Patient is awake, alert and oriented. Results Result Diagram: 05/17/16 0530 05/17/16 0540 Results 24 hrs Laboratory Tests Test 05/17/16 05:30 05/17/16 05:40 05/17/16 07:20 05/17/16 12:49 White Blood Count 17.3 #H Red Blood Count 3.81 L Hemoglobin 10.9 L Hematocrit 32.1 L Mean Corpuscular Volume 84.3 Mean Corpuscular Hemoglobin 28.6 L Mean Corpuscular Hemoglobin Concent 34.0 Red Cell Distribution Width 16.5 H Platelet Count 338 Mean Platelet Volume 9.7 Neutrophils % 1.5 L Lymphocytes % 65.0 H Monocytes % 5.4 Eosinophils % 27.2 H Basophils % 0.7 Nucleated Red Blood Cells % 0.2 H Neutrophils # 0.2 L Lymphocytes # 11.2 H Monocytes # 0.9 Eosinophils # 4.7 H Basophils # 0.1 Nucleated Red Blood Cells # 0.0 Sodium Level 138 Potassium Level 3.5 Chloride Level 106 Carbon Dioxide Level 27 Anion Gap 9 Blood Urea Nitrogen 15 Creatinine 0.60 L Glucose Level 87 Calcium Level 8.0 L Bedside Glucose 85 Lab Scanned Report REFERENCE LAB Medications Medications Current Medications Diphenhydramine HCl (Benadryl) 25 mg Q6H PRN IV ITCHING Last administered on 23:33; Admin Dose 25 MG; Start 05/03/16 at 23:30 Morphine Sulfate (morphine) 2 mg Q4H PRN IV PAIN Last administered on 00:34; Admin Dose 2 MG; Start 05/03/16 at 23:30 Enoxaparin Sodium (Lovenox) 40 mg DAILY SC Last administered on 05/17/16 10:44 ; Admin Dose 40 MG; Start 05/04/16 at 09:00 Acetaminophen (Tylenol Tab) 650 mg Q4H PRN PO PAIN AND OR ELEVATED TEMP Last administered on 05/14/16 00:14; Admin Dose 650 MG; Start 05/03/16 at 23:30 Darunavir (Prezista) 800 mg DAILY PO Last administered on 05/17/16 10:43; Admin Dose 800 MG; Start 05/04/16 at 09:00 Acetaminophen/ Hydrocodone Bitart ([place] (5/325)) 1 tab Q4H PRN PO PAIN Last administered on 05/10/16 06:17; Admin Dose 1 TAB; Start 05/03/16 at 23:30 Multivitamins Therapeutic (Theragran) 1 tab DAILY PO Last administered on 10:42; Admin Dose 1 TAB; Start 05/04/16 at 09:00 Azithromycin (Zithromax) 1,200 mg We@09 PO Last administered on 05/11/16 13:23 ; Admin Dose 1,200 MG; Start 05/04/16 at 09:00 Elvitegravir/ Cobicis/Emtricit/ Tenof (Stribild Tablet) 1 each DAILY PO Last administered on 05/17/16 11:33; Admin Dose 1 EACH; Start 05/04/16 at 09:00 Ibuprofen (Motrin) 400 mg Q6H PRN PO PAIN OR TEMP ABOVE 38C Last administered on 05/12/16 23:09; Admin Dose 400 MG; Start 05/04/16 at 11:30 Famotidine (Pepcid) 20 mg DAILY PO Last administered on 05/17/16 10:42; Admin Dose 20 MG; Start 05/04/16 at 12:30 Cyanocobalamin (Vitamin B12 Inj) 1,000 mcg Q28D IM Last administered on 09:45; Admin Dose 1,000 MCG; Start 05/04/16 at 09:00 Loratadine 10 mg 10 mg DAILY PO Last administered on 05/17/16 10:42; Admin Dose 10 MG; Start 05/06/16 at 09:00 Imipenem/ Cilastatin Sodium 100 ml @ 100 mls/hr Q6 IVPB Last administered on 11:34; Admin Dose 100 MLS/HR; Start 05/05/16 at 18:00 Sodium Chloride (NS) 1,000 ml @ 75 mls/hr [id number] IV Last administered on 05/17 00:15; Admin Dose 75 MLS/HR; Start 05/05/16 at 23:30 Aspirin (Aspirin) 325 mg DAILY PO Last administered on 05/17/16 10:42; Admin Dose 325 MG; Start 05/07/16 at 09:00 Eye Lubricant (Artificial Tears Oph) 2 drop QID BOTH EYES Last administered on 05/17/16 14:22; Admin Dose 2 DROP; Start 05/06/16 at 17:00 Diltiazem HCl (Cardizem) 120 mg DAILY PO Last administered on 05/17/16 10:44; Admin Dose 120 MG; Start 05/07/16 at 09:00 Trimethoprim/ Sulfamethoxazole 1 tab 1 tab SuTuTh@09 PO Last administered on 11:33; Admin Dose 1 TAB; Start 05/08/16 at 09:00 Caspofungin 50 mg/ Sodium Chloride 250 ml @ 250 mls/hr Q24H IVPB Last administered on 05/16/16 16:17; Admin Dose 250 MLS/HR; Start 05/09/16 at 16:00 Aztreonam/Sodium Chloride (Azactam/NS) 100 ml @ 100 mls/hr Q8 IVPB Last administered on 05/17/16 14:22; Admin Dose 100 MLS/HR; Start 05/10/16 at 14:30 Valacyclovir HCl 1000 mg 1,000 mg TID PO Last administered on 05/17/16 14:22; Admin Dose 1,000 MG; Start 05/11/16 at 13:00; Stop 05/18/16 at 12:59 Vancomycin HCl/ Sodium Chloride (Vancocin/NS) 250 ml @ 83.333 mls/ hr Q12H IVPB ; Start 05/17/16 at 21:00 AAKASH MITCHELL May 17, 2016 16:17
[2016-05-17] MEDS: CASPOFUNGIN 50 MG in SOD CHLORIDE 0.9% 250 ML IVPB SCH (16:31)
[2016-05-17 17:14] LABS: ADD UMIC NO; URINE BILIRUBIN (Dip) NEGATIVE (NEGATIVE); URINE BLOOD (Dip) NEGATIVE (NEGATIVE); URINE COLOR LT. YELLOW (YELLOW); URINE GLUCOSE (Dip) NEGATIVE (NEGATIVE); URINE KETONES (Dip) TRACE (NEGATIVE); URINE LEUKOCYTE ESTERASE (Dip) NEGATIVE (NEGATIVE); URINE NITRITE (Dip) NEGATIVE (NEGATIVE); URINE TOTAL PROTEIN (Dip) NEGATIVE (NEGATIVE); URINE UROBILINOGEN (Dip) 0.2 E.U./dL (0.1-1.0)
[2016-05-17 20:30] VITALS: BP 115/75; RESP 20
--- NOTE | 2016-05-17 23:07 | PN ---
Date/Time of Note Date/Time of Note DATE: 05/17/16 TIME: 23:05 Assessment/Plan Lines/Catheters [facility] ([facility] Peripheral IV Gomez in Place (from [facility]): No Assessment/Plan Chief Complaint/Hosp Course 1. Fevers, chills and lymphadenopathy s/p right neck LN bx 05/14 -await path 2. BMI 29. Encourage diet optimization and exercise eventually. 3. Human immunodeficiency virus positive. Continue medical management. 4. Hypoalbuminemia is multifactorial; however, he will benefit from nutrition optimization. 5. Hypertension. Continue medication and nutrition optimization. Encourage weight loss. 6. Leukocytosis ? etiology -abx -ID following Thank you Problems: Subjective 24 Hr Interval Summary Worsening leukocytosis. Min neck pain. No fevers. No chills. Min nausea. No vomiting. No cp/sob. No cough. No martinez/dizzy/visual or neuro changes. No dysuria. Exam/Review of Systems Vital Signs Vitals Vital Signs Date Time Temp Pulse Resp B/P Pulse Ox O2 Delivery O2 Flow Rate FiO2 05/17/16 20:30 98.3 82 20 115/75 99 05/16/16 05:43 21 05/15/16 00:00 Room Air 05/14/16 16:10 2.0 Intake and Output 05/16/16 05/16/16 05/17/16 15:00 23:00 07:00 Intake Total 300 ml 1400 ml 1182.5 ml Output Total 2800 ml 2850 ml Balance 300 ml -1400 ml -1667.5 ml Exam Free Text/Dictation GENERAL: No acute distress, obese. HEENT: Pupils equal, reactive. No scleral icterus. Mucous membranes are moist. NECK: Supple. No JVD. Multiple lymph nodes along the cervical chain. Right neck incision. PULMONARY: Normal respiratory effort. No wheezing. HEART: S1, S2 present. ABDOMEN: Soft, nontender, no rebound, no guarding. Positive inguinal lymph nodes. EXTREMITIES: No edema. VASCULAR: Cap refill less than 2 seconds. NEUROLOGIC: Alert, oriented, moves all 4 extremities grossly. LYMPHATICS: Cervical and inguinal lymphadenopathy. Results Result Diagram: 05/17/16 0530 05/17/16 0540 YOANDY OLEARY MD May 17, 2016 23:07
[2016-05-18] MEDS: IMIPENEM-CILAST 500 MG/NS 100 ML IVPB SCH ×4 (00:22→18:42)
[2016-05-18] MEDS: AZTREONAM 2 GM in SOD CHLORIDE 0.9% 100 ML IVPB SCH ×2 (05:03→14:56)
[2016-05-18] MEDS: SOD CHLORIDE 0.9% 1,000 ML IV SCH ×2 (06:18→18:43)
[2016-05-18 06:49] LABS: ADD SCAN DIFF NO
[2016-05-18 06:52] LABS: ABNORMAL IP MESSAGE 1; HEMATOCRIT 34.1 % (42.0-52.0); HEMOGLOBIN 11.7 g/dl (14.0-18.0); MEAN CORPUSCULAR HGB CONC 34.3 g/dl (32.0-37.0); MEAN CORPUSCULAR VOLUME 84.4 fl (82.0-101.0); MEAN PLATELET VOLUME 9.4 fl (7.4-10.4); PLATELET COUNT 332 10^3/UL (140-415); RED BLOOD COUNT 4.04 10^6/ul (4.70-6.10); RED CELL DISTRIBUTION WIDTH 16.2 % (11.5-14.5); WHITE BLOOD COUNT 13.2 10^3/ul (4.8-10.8)
[2016-05-18 07:19] LABS: POTASSIUM 3.6 mmol/L (3.5-5.1)
[2016-05-18 07:22] LABS: CALCIUM 8.3 mg/dl (8.4-10.2); CREATININE 0.58 mg/dl (0.61-1.24)
[2016-05-18 07:41] VITALS: BP 116/81; RESP 16
--- NOTE | 2016-05-18 09:39 | CONS ---
Date/Time of Note Date/Time of Note DATE: 05/18/16 TIME: 09:37 Assessment/Plan Assessment/Plan Chief Complaint/Hosp Course - Gram negative bacteremia 05/03/16. CT of abd/pel showed no occult infection. - h/o recurrent neutropenic fever, infectious process vs. immune reconstitution inflammatory response. WBC tagged scan negative from 05/12/2016 - h/o eosiniophillia - advanced AIDS (CD4<20, viral load 166,544 copies in 04/21/2016 & repeat CD4 37 on 05/07/2016), was non-compliant with medications. Restarted on Stribild and darunavir on 04/23/2016. Genotype on 04/20/2016 showed a wild type virus without baseline mutations - neutropenia s/p BMBx, no e/o infections or malignancy at this time. CMV IHC negative, CMV PCR in serum was <200, cocci and crypto negative, QTB gold negative - h/o cough in 03/2016. CXR showed overinflated lungs, CT showed benign appearing sub-centimeter nodule seen at the bilateral lung bases - h/o E. coli in urine, likely colonization. completed treatment for this - LUE weakness and pain due to tear of rotator cuff muscles and bicep tendon anchor - L cervical and supraclavicular lymphadenopathy s/p excisional Bx - h/o thrush, resolved - hyperpigmented lesions on b/l LE x several months according to Pt - h/o pruritis, probably due to atovaquone. 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 German at micro lab re-sent viable specimen to [facility] for speciation and identification on 05/17/2016. It is Gram variable bacteria, non-acineto, non- haemophilus - pending: Bx results, bartonella serology, Parvo B19 serology, HTLV PCR, strongyloides serology, AFB blood cultures, HHV PCR - Rupali at path department said that Pt's Bx result is not available yet as of - await the results of pancultures from 05/17/2016 - will repeat CD4 and HIV viral load on 05/21/2016 - continue empiric vancomycin (05/04/16-), imipenem (05/05/16-), aztreonam (-), caspofungin (05/09/16-) - continue Stribild (tenofovir/emtricitabine/elvitaegravir/cobicistat) and darunavir 800mg - dosed at 800mg to simulate Prezcobix (darunavir 800mg/ cobicistat 150mg) - continue Bactrim three times a week for pneumocystis prophylaxis - continue weekly azithromycin for MAC prophylaxis - Continue valtrex 1000 mg TID x 7 days (05/11/16-) for possible HSV labialis - place Pt under neutropenic precautions again management d/w Pt Problems: Consultation Date/Type/Reason Admit Date/Time May 03, 2016 at 19:51 Initial Consult Date 05/06/16 Type of Consultation: ID Referring Provider: NAKIA LUNA MD 24 HR Interval Summary Free Text/Dictation no acute events Constitutional: no complaints Detailed Summary Eyes: no complaints ENT: no complaints Respiratory: no complaints Cardiovascular: no complaints Gastrointestinal: no complaints Musculoskeletal: bone/joint pain, restricted range of motion Skin: no complaints Neurologic: focal-weakness Lymphatic: no complaints Exam/Review of Systems Vital Signs Vitals Vital Signs Date Time Temp Pulse Resp B/P Pulse Ox O2 Delivery O2 Flow Rate FiO2 05/18/16 07:41 97.6 86 16 116/81 98 05/18/16 04:00 21 05/15/16 00:00 Room Air 05/14/16 16:10 2.0 Intake and Output 05/17/16 05/17/16 05/18/16 15:00 23:00 07:00 Intake Total 100 ml 2210 ml 2025 ml Output Total 1550 ml 2300 ml Balance 100 ml 660 ml -275 ml Exam Constitutional: alert, oriented, well developed Psych: nl mood/affect, no complaints Head: atraumatic, normocephalic Eyes: nl conjunctiva, nl lids ENMT: nl external ears & nose, nl lips & teeth, nl nasal mucosa & septum Neck: supple Respiratory: clear to auscultation, normal air movement Cardiovascular: nl pulses, regular rate and rhythm Musculoskeletal: range of motion Extremities: No edema Results Result Diagram: 05/18/16 0540 05/18/16 0540 Results 24 hrs Laboratory Tests Test 05/17/16 12:49 05/17/16 16:20 05/18/16 05:40 Lab Scanned Report REFERENCE LAB Urine Color LT. YELLOW Urine Clarity CLEAR Urine pH 7.0 Urine Specific [place] 1.020 Urine Ketones TRACE Urine Nitrite NEGATIVE Urine Bilirubin NEGATIVE Urine Urobilinogen 0.2 E.U./dL Urine Leukocyte Esterase NEGATIVE Urine Hemoglobin NEGATIVE Urine Glucose NEGATIVE Urine Total Protein NEGATIVE White Blood Count 13.2 #H Red Blood Count 4.04 L Hemoglobin 11.7 L Hematocrit 34.1 L Mean Corpuscular Volume 84.4 Mean Corpuscular Hemoglobin 29.0 Mean Corpuscular Hemoglobin Concent 34.3 Red Cell Distribution Width 16.2 H Platelet Count 332 Mean Platelet Volume 9.4 Neutrophils % Lymphocytes % Monocytes % Neutrophils # Lymphocytes # Monocytes # Sodium Level 138 Potassium Level 3.6 Chloride Level 106 Carbon Dioxide Level 25 Anion Gap 11 Blood Urea Nitrogen 12 Creatinine 0.58 L Glucose Level 89 Calcium Level 8.3 L Medications Medications Current Medications Diphenhydramine HCl (Benadryl) 25 mg Q6H PRN IV ITCHING Last administered on 23:33; Admin Dose 25 MG; Start 05/03/16 at 23:30 Morphine Sulfate (morphine) 2 mg Q4H PRN IV PAIN Last administered on 22:00; Admin Dose 2 MG; Start 05/03/16 at 23:30 Enoxaparin Sodium (Lovenox) 40 mg DAILY SC Last administered on 05/17/16 10:44 ; Admin Dose 40 MG; Start 05/04/16 at 09:00 Acetaminophen (Tylenol Tab) 650 mg Q4H PRN PO PAIN AND OR ELEVATED TEMP Last administered on 05/14/16 00:14; Admin Dose 650 MG; Start 05/03/16 at 23:30 Darunavir (Prezista) 800 mg DAILY PO Last administered on 05/17/16 10:43; Admin Dose 800 MG; Start 05/04/16 at 09:00 Acetaminophen/ Hydrocodone Bitart ([place] (5/325)) 1 tab Q4H PRN PO PAIN Last administered on 05/10/16 06:17; Admin Dose 1 TAB; Start 05/03/16 at 23:30 Multivitamins Therapeutic (Theragran) 1 tab DAILY PO Last administered on 10:42; Admin Dose 1 TAB; Start 05/04/16 at 09:00 Azithromycin (Zithromax) 1,200 mg We@09 PO Last administered on 05/11/16 13:23 ; Admin Dose 1,200 MG; Start 05/04/16 at 09:00 Elvitegravir/ Cobicis/Emtricit/ Tenof (Stribild Tablet) 1 each DAILY PO Last administered on 05/17/16 11:33; Admin Dose 1 EACH; Start 05/04/16 at 09:00 Ibuprofen (Motrin) 400 mg Q6H PRN PO PAIN OR TEMP ABOVE 38C Last administered on 05/12/16 23:09; Admin Dose 400 MG; Start 05/04/16 at 11:30 Famotidine (Pepcid) 20 mg DAILY PO Last administered on 05/17/16 10:42; Admin Dose 20 MG; Start 05/04/16 at 12:30 Cyanocobalamin (Vitamin B12 Inj) 1,000 mcg Q28D IM Last administered on 09:45; Admin Dose 1,000 MCG; Start 05/04/16 at 09:00 Loratadine 10 mg 10 mg DAILY PO Last administered on 05/17/16 10:42; Admin Dose 10 MG; Start 05/06/16 at 09:00 Imipenem/ Cilastatin Sodium 100 ml @ 100 mls/hr Q6 IVPB Last administered on 06:13; Admin Dose 100 MLS/HR; Start 05/05/16 at 18:00 Sodium Chloride (NS) 1,000 ml @ 75 mls/hr [id number] IV Last administered on 05/18 06:18; Admin Dose 75 MLS/HR; Start 05/05/16 at 23:30 Aspirin (Aspirin) 325 mg DAILY PO Last administered on 05/17/16 10:42; Admin Dose 325 MG; Start 05/07/16 at 09:00 Eye Lubricant (Artificial Tears Oph) 2 drop QID BOTH EYES Last administered on 05/17/16 20:28; Admin Dose 2 DROP; Start 05/06/16 at 17:00 Diltiazem HCl (Cardizem) 120 mg DAILY PO Last administered on 05/17/16 10:44; Admin Dose 120 MG; Start 05/07/16 at 09:00 Trimethoprim/ Sulfamethoxazole 1 tab 1 tab SuTuTh@09 PO Last administered on 11:33; Admin Dose 1 TAB; Start 05/08/16 at 09:00 Caspofungin 50 mg/ Sodium Chloride 250 ml @ 250 mls/hr Q24H IVPB Last administered on 05/17/16 16:31; Admin Dose 250 MLS/HR; Start 05/09/16 at 16:00 Aztreonam/Sodium Chloride (Azactam/NS) 100 ml @ 100 mls/hr Q8 IVPB Last administered on 05/18/16 05:03; Admin Dose 100 MLS/HR; Start 05/10/16 at 14:30 Valacyclovir HCl 1000 mg 1,000 mg TID PO Last administered on 05/17/16 20:28; Admin Dose 1,000 MG; Start 05/11/16 at 13:00; Stop 05/18/16 at 12:59 Vancomycin HCl/ Sodium Chloride (Vancocin/NS) 250 ml @ 83.333 mls/ hr Q12H IVPB Last administered on 05/17/16 20:49; Admin Dose 83.333 MLS/HR; Start at 21:00 JACK LAIRD M.D. May 18, 2016 09:39
[2016-05-18] MEDS: DARUNAVIR ETHANOLATE 800 MG TABLET PO SCH (10:07)
[2016-05-18] MEDS: MULTIVITAMINS THERAPEUTIC TAB PO SCH (10:07)
[2016-05-18] MEDS: ASPIRIN 325 MG TAB PO SCH (10:07)
[2016-05-18] MEDS: VALACYCLOVIR 500 MG TAB PO SCH (10:08)
[2016-05-18] MEDS: LORATADINE 10 MG TAB PO SCH (10:08)
[2016-05-18] MEDS: DILTIAZEM 60 MG TAB PO SCH (10:08)
[2016-05-18] MEDS: FAMOTIDINE 20 MG TAB PO SCH (10:09)
[2016-05-18] MEDS: ENOXAPARIN 40 MG/0.4 ML SYG SC SCH (10:16)
[2016-05-18] MEDS: AZITHROMYCIN 600 MG TAB PO SCH (10:37)
[2016-05-18] MEDS: ELVITEGR/COBICIST/EMTRIC/TENOF 1 EACH TABLET PO SCH (10:37)
[2016-05-18] MEDS: ARTIFICIAL TEARS 15 ML OPH BOTH EYES SCH ×4 (10:37→20:58)
[2016-05-18] MEDS: VANCOMYCIN 1.5 GM in SOD CHLORIDE 0.9% 250 ML IVPB SCH ×2 (10:37→20:57)
[2016-05-18 12:14] LABS: EOSINOPHILS # 4.2 10^3/ul (0.0-0.5); LYMPHOCYTES # 7.9 10^3/ul (0.8-2.9); MONOCYTE # 0.5 10^3/ul (0.3-0.9); NEUTROPHIL # 0.4 10^3/ul (1.6-7.5)
[2016-05-18] MEDS: CASPOFUNGIN 50 MG in SOD CHLORIDE 0.9% 250 ML IVPB SCH (17:41)
[2016-05-18] MEDS: morphine 2 MG INJ IV PRN ×2 (18:43→22:45)
--- NOTE | 2016-05-18 19:21 | PN ---
Date/Time of Note Date/Time of Note DATE: 05/18/16 TIME: 19:19 Assessment/Plan VTE Prophylaxis VTE Prophylaxis Intervention: SCD's Lines/Catheters [facility] Peripheral IV Urinary Cath still in place: No Assessment/Plan Chief Complaint/Hosp Course ASSESSMENT AND PLAN: -Sepsis with gram-negative rods bacteremia. Dr. Lady reese is following infectious disease consultation. Continue antibiotics per ID. S/p biopsy of left supraclavicular lymph node, f/up on path. -Neutropenic fever. Continue neutropenic precautions. Continue broad spectrum antibiotics. -Advanced AIDS. Continue the patient on Stribild, darunavir and Mepron. Continue azithromycin. - Afib with RVR, Dr. Silver is following in cardiology consultation. Continue Cardizem. - Medical non- compliance. Sequential compression devices for deep venous thrombosis prophylaxis and Pepcid for peptic ulcer disease prophylaxis. Further recommendations based on clinical course. Plan of care discussed with Dr. Walden. Problems: Subjective 24 Hr Interval Summary Free Text/Dictation Patient remains afebrile, stated that he feels better, no nausea vomiting reported. Exam/Review of Systems Vital Signs Vitals Vital Signs Date Time Temp Pulse Resp B/P Pulse Ox O2 Delivery O2 Flow Rate FiO2 05/18/16 10:56 21 05/18/16 07:41 97.6 86 16 116/81 98 05/15/16 00:00 Room Air 05/14/16 16:10 2.0 Intake and Output 05/17/16 05/17/16 05/18/16 15:00 23:00 07:00 Intake Total 100 ml 2210 ml 2025 ml Output Total 1550 ml 2300 ml Balance 100 ml 660 ml -275 ml Exam GENERAL: Well-developed, well-nourished male in no acute distress. HEENT: Head is atraumatic, normocephalic. PERRLA. NECK: Supple. LUNGS: Slightly diminished at the bases. Clear in the upper lobes. CARDIOVASCULAR: The patient is tachycardic. Normal S1, S2. No murmurs, gallops, clicks, rubs noted. ABDOMEN: Round, soft, nondistended, nontender. Bowel sounds present. No guarding, no rebound tenderness. EXTREMITIES: There is no edema, clubbing, cyanosis. Pulses equal bilaterally 2 +. SKIN: The patient has diffuse erythema all over his body. There is no maculopapular rash, no petechiae. No ecchymosis noted. NEUROLOGIC: Patient is awake, alert and oriented. Results Result Diagram: 05/18/16 0540 05/18/16 0540 Results 24 hrs Laboratory Tests Test 05/18/16 05:40 05/18/16 09:37 White Blood Count 13.2 #H Red Blood Count 4.04 L Hemoglobin 11.7 L Hematocrit 34.1 L Mean Corpuscular Volume 84.4 Mean Corpuscular Hemoglobin 29.0 Mean Corpuscular Hemoglobin Concent 34.3 Red Cell Distribution Width 16.2 H Platelet Count 332 Mean Platelet Volume 9.4 Neutrophils % 3.0 L Band Neutrophils % 1.0 Lymphocytes % 60.0 H Monocytes % 4.0 Eosinophils % 32.0 H Neutrophils # 0.4 L Lymphocytes # 7.9 H Monocytes # 0.5 Eosinophils # 4.2 H Differential Comment MANUAL DIFF Sodium Level 138 Potassium Level 3.6 Chloride Level 106 Carbon Dioxide Level 25 Anion Gap 11 Blood Urea Nitrogen 12 Creatinine 0.58 L Glucose Level 89 Calcium Level 8.3 L Lab Scanned Report REFERENCE LAB Medications Medications Current Medications Diphenhydramine HCl (Benadryl) 25 mg Q6H PRN IV ITCHING Last administered on 23:33; Admin Dose 25 MG; Start 05/03/16 at 23:30 Morphine Sulfate (morphine) 2 mg Q4H PRN IV PAIN Last administered on 18:43; Admin Dose 2 MG; Start 05/03/16 at 23:30 Enoxaparin Sodium (Lovenox) 40 mg DAILY SC Last administered on 05/18/16 10:16 ; Admin Dose 40 MG; Start 05/04/16 at 09:00 Acetaminophen (Tylenol Tab) 650 mg Q4H PRN PO PAIN AND OR ELEVATED TEMP Last administered on 05/14/16 00:14; Admin Dose 650 MG; Start 05/03/16 at 23:30 Darunavir (Prezista) 800 mg DAILY PO Last administered on 05/18/16 10:07; Admin Dose 800 MG; Start 05/04/16 at 09:00 Acetaminophen/ Hydrocodone Bitart ([place] (5/325)) 1 tab Q4H PRN PO PAIN Last administered on 05/10/16 06:17; Admin Dose 1 TAB; Start 05/03/16 at 23:30 Multivitamins Therapeutic (Theragran) 1 tab DAILY PO Last administered on 10:07; Admin Dose 1 TAB; Start 05/04/16 at 09:00 Azithromycin (Zithromax) 1,200 mg We@09 PO Last administered on 05/18/16 10:37 ; Admin Dose 1,200 MG; Start 05/04/16 at 09:00 Elvitegravir/ Cobicis/Emtricit/ Tenof (Stribild Tablet) 1 each DAILY PO Last administered on 05/18/16 10:37; Admin Dose 1 EACH; Start 05/04/16 at 09:00 Ibuprofen (Motrin) 400 mg Q6H PRN PO PAIN OR TEMP ABOVE 38C Last administered on 05/12/16 23:09; Admin Dose 400 MG; Start 05/04/16 at 11:30 Famotidine (Pepcid) 20 mg DAILY PO Last administered on 05/18/16 10:09; Admin Dose 20 MG; Start 05/04/16 at 12:30 Cyanocobalamin (Vitamin B12 Inj) 1,000 mcg Q28D IM Last administered on 09:45; Admin Dose 1,000 MCG; Start 05/04/16 at 09:00 Loratadine 10 mg 10 mg DAILY PO Last administered on 05/18/16 10:08; Admin Dose 10 MG; Start 05/06/16 at 09:00 Imipenem/ Cilastatin Sodium 100 ml @ 100 mls/hr Q6 IVPB Last administered on 18:42; Admin Dose 100 MLS/HR; Start 05/05/16 at 18:00 Sodium Chloride (NS) 1,000 ml @ 75 mls/hr [id number] IV Last administered on 05/18 18:43; Admin Dose 75 MLS/HR; Start 05/05/16 at 23:30 Aspirin (Aspirin) 325 mg DAILY PO Last administered on 05/18/16 10:07; Admin Dose 325 MG; Start 05/07/16 at 09:00 Eye Lubricant (Artificial Tears Oph) 2 drop QID BOTH EYES Last administered on 05/18/16 17:42; Admin Dose 2 DROP; Start 05/06/16 at 17:00 Diltiazem HCl (Cardizem) 120 mg DAILY PO Last administered on 05/18/16 10:08; Admin Dose 120 MG; Start 05/07/16 at 09:00 Trimethoprim/ Sulfamethoxazole 1 tab 1 tab SuTuTh@09 PO Last administered on 11:33; Admin Dose 1 TAB; Start 05/08/16 at 09:00 Caspofungin 50 mg/ Sodium Chloride 250 ml @ 250 mls/hr Q24H IVPB Last administered on 05/18/16 17:41; Admin Dose 250 MLS/HR; Start 05/09/16 at 16:00 Aztreonam 2 gm/ Sodium Chloride 100 ml @ 100 mls/hr Q8 IVPB Last administered on 05/18/16 14:56; Admin Dose 100 MLS/HR; Start 05/10/16 at 14:30 Vancomycin HCl/ Sodium Chloride (Vancocin/NS) 250 ml @ 83.333 mls/ hr Q12H IVPB Last administered on 05/18/16 10:37; Admin Dose 83.333 MLS/HR; Start at 21:00 AAKASH MITCHELL May 18, 2016 19:21
[2016-05-18 19:58] VITALS: BP 128/85; RESP 18
--- NOTE | 2016-05-18 21:33 | PN ---
Date/Time of Note Date/Time of Note DATE: 05/18/16 TIME: 21:32 Assessment/Plan Lines/Catheters IV [facility] Type ([facility] Peripheral IV Gomez in Place (from Nrs): No Assessment/Plan Chief Complaint/Hosp Course 1. Fevers, chills and lymphadenopathy s/p right neck LN bx 05/14 -await path 2. BMI 29. Encourage diet optimization and exercise eventually. 3. Human immunodeficiency virus positive. Continue medical management. 4. Hypoalbuminemia is multifactorial; however, he will benefit from nutrition optimization. 5. Hypertension. Continue medication and nutrition optimization. Encourage weight loss. 6. Leukocytosis ? etiology. Improving. -abx -ID following Thank you Problems: Subjective 24 Hr Interval Summary Improving leukocytosis. Min neck pain. No fevers. No chills. Min nausea. No vomiting. No cp/sob. No cough. No martinez/dizzy/visual or neuro changes. No dysuria. Exam/Review of Systems Vital Signs Vitals Vital Signs Date Time Temp Pulse Resp B/P Pulse Ox O2 Delivery O2 Flow Rate FiO2 05/18/16 19:58 98.1 75 18 128/85 99 05/18/16 10:56 21 05/15/16 00:00 Room Air 05/14/16 16:10 2.0 Intake and Output 05/17/16 05/17/16 05/18/16 15:00 23:00 07:00 Intake Total 100 ml 2210 ml 2025 ml Output Total 1550 ml 2300 ml Balance 100 ml 660 ml -275 ml Exam Free Text/Dictation GENERAL: No acute distress, obese. HEENT: Pupils equal, reactive. No scleral icterus. Mucous membranes are moist. NECK: Supple. No JVD. Multiple lymph nodes along the cervical chain. Right neck incision. PULMONARY: Normal respiratory effort. No wheezing. HEART: S1, S2 present. ABDOMEN: Soft, nontender, no rebound, no guarding. Positive inguinal lymph nodes. EXTREMITIES: No edema. VASCULAR: Cap refill less than 2 seconds. NEUROLOGIC: Alert, oriented, moves all 4 extremities grossly. LYMPHATICS: Cervical and inguinal lymphadenopathy Results Result Diagram: 05/18/16 0540 05/18/16 0540 YOANDY OLEARY MD May 18, 2016 21:33
[2016-05-19] MEDS: AZTREONAM 2 GM in SOD CHLORIDE 0.9% 100 ML IVPB SCH ×3 (00:33→18:47)
[2016-05-19] MEDS: IMIPENEM-CILAST 500 MG/NS 100 ML IVPB SCH ×4 (02:14→17:32)
[2016-05-19 06:05] LABS: ADD SCAN DIFF NO
[2016-05-19 06:17] LABS: ABNORMAL IP MESSAGE 1; HEMATOCRIT 29.2 % (42.0-52.0); MEAN CORPUSCULAR HEMOGLOBIN 29.1 pg (29.0-33.0); MEAN CORPUSCULAR HGB CONC 34.2 g/dl (32.0-37.0); MEAN CORPUSCULAR VOLUME 84.9 fl (82.0-101.0); MEAN PLATELET VOLUME 9.5 fl (7.4-10.4); PLATELET COUNT 290 10^3/UL (140-415); RED BLOOD COUNT 3.44 10^6/ul (4.70-6.10); RED CELL DISTRIBUTION WIDTH 16.6 % (11.5-14.5); WHITE BLOOD COUNT 10.8 10^3/ul (4.8-10.8)
[2016-05-19 06:32] LABS: POTASSIUM 3.2 mmol/L (3.5-5.1)
[2016-05-19 06:35] LABS: CALCIUM 8.2 mg/dl (8.4-10.2); CREATININE 0.68 mg/dl (0.61-1.24)
[2016-05-19 07:35] VITALS: BP 133/72; RESP 20
[2016-05-19 08:10] LABS: BASOPHIL # 0.2 10^3/ul (0.0-0.1); LYMPHOCYTES # 6.5 10^3/ul (0.8-2.9); MONOCYTE # 1.1 10^3/ul (0.3-0.9)
[2016-05-19] MEDS: ELVITEGR/COBICIST/EMTRIC/TENOF 1 EACH TABLET PO SCH (08:30)
[2016-05-19] MEDS: LORATADINE 10 MG TAB PO SCH (08:31)
[2016-05-19] MEDS: FAMOTIDINE 20 MG TAB PO SCH (08:31)
[2016-05-19] MEDS: ARTIFICIAL TEARS 15 ML OPH BOTH EYES SCH ×4 (08:31→21:16)
[2016-05-19] MEDS: ASPIRIN 325 MG TAB PO SCH (08:31)
[2016-05-19] MEDS: DARUNAVIR ETHANOLATE 800 MG TABLET PO SCH (08:31)
[2016-05-19] MEDS: MULTIVITAMINS THERAPEUTIC TAB PO SCH (08:31)
[2016-05-19] MEDS: VANCOMYCIN 1.5 GM in SOD CHLORIDE 0.9% 250 ML IVPB SCH ×2 (08:31→21:16)
[2016-05-19] MEDS: DILTIAZEM 60 MG TAB PO SCH (08:37)
[2016-05-19] MEDS: ENOXAPARIN 40 MG/0.4 ML SYG SC SCH (08:39)
[2016-05-19] MEDS ORDERED: POTASSIUM CHLORIDE (SR) 20 MEQ TAB PO STA (11:12)
[2016-05-19] MEDS: TRIMETHOPRIM/SULFAMETHOX (DS) TAB PO SCH (11:27)
[2016-05-19] MEDS: SOD CHLORIDE 0.9% 1,000 ML IV SCH ×2 (11:28→20:50)
--- NOTE | 2016-05-19 11:31 | PN ---
Date/Time of Note Date/Time of Note DATE: 05/19/16 TIME: 11:29 Assessment/Plan Lines/Catheters IV Catheter Type (from [facility]): Peripheral IV Gomez in Place (from [facility]): No Assessment/Plan Chief Complaint/Hosp Course 1. Fevers, chills and lymphadenopathy s/p right neck LN bx 05/14. Improved. -await path 2. BMI 29. Encourage diet optimization and exercise eventually. 3. Human immunodeficiency virus positive. Continue medical management. 4. Hypoalbuminemia is multifactorial; however, he will benefit from nutrition optimization. 5. Hypertension. Continue medication and nutrition optimization. Encourage weight loss. 6. Leukocytosis ? etiology. Improving. -abx -ID following Thank you Problems: Subjective 24 Hr Interval Summary Leukocytosis improved. Min neck pain. No fevers. No chills. Min nausea. No vomiting. No cp/sob. No cough. No martinez/dizzy/visual or neuro changes. No dysuria. Exam/Review of Systems Vital Signs Vitals Vital Signs Date Time Temp Pulse Resp B/P Pulse Ox O2 Delivery O2 Flow Rate FiO2 05/19/16 07:35 98.6 80 20 133/72 96 05/18/16 10:56 21 Intake and Output 05/18/16 05/18/16 05/19/16 15:00 23:00 07:00 Intake Total 450 ml 2525 ml 1410 ml Output Total 1300 ml 1000 ml Balance 450 ml 1225 ml 410 ml Exam Free Text/Dictation GENERAL: No acute distress, obese. HEENT: Pupils equal, reactive. No scleral icterus. Mucous membranes are moist. NECK: Supple. No JVD. Multiple lymph nodes along the cervical chain. Right neck incision. PULMONARY: Normal respiratory effort. No wheezing. HEART: S1, S2 present. ABDOMEN: Soft, nontender, no rebound, no guarding. Positive inguinal lymph nodes. EXTREMITIES: No edema. VASCULAR: Cap refill less than 2 seconds. NEUROLOGIC: Alert, oriented, moves all 4 extremities grossly. LYMPHATICS: Cervical and inguinal lymphadenopathy Results Result Diagram: 05/19/16 0425 05/19/16 0425 YOANDY OLEARY MD May 19, 2016 11:31
--- NOTE | 2016-05-19 14:10 | CONS ---
Date/Time of Note Date/Time of Note DATE: 05/19/16 TIME: 13:58 Assessment/Plan Assessment/Plan Chief Complaint/Hosp Course - Gram negative bacteremia 05/03/16. CT of abd/pel showed no occult infection. - h/o recurrent neutropenic fever, infectious process vs. immune reconstitution inflammatory response. WBC tagged scan negative from 05/12/2016 - h/o eosiniophillia - advanced AIDS (CD4<20, viral load 166,544 copies in 04/21/2016 & repeat CD4 37 on 05/07/2016), was non-compliant with medications. Restarted on Stribild and darunavir on 04/23/2016. Genotype on 04/20/2016 showed a wild type virus without baseline mutations - neutropenia s/p BMBx, no e/o infections or malignancy at this time. CMV IHC negative, CMV PCR in serum was <200, cocci and crypto negative, QTB gold negative - h/o cough in 03/2016. CXR showed overinflated lungs, CT showed benign appearing sub-centimeter nodule seen at the bilateral lung bases - h/o E. coli in urine, likely colonization. completed treatment for this - LUE weakness and pain due to tear of rotator cuff muscles and bicep tendon anchor - L cervical and supraclavicular lymphadenopathy s/p excisional Bx - h/o thrush, resolved - hyperpigmented lesions on b/l LE x several months according to Pt - h/o pruritis, probably due to atovaquone. Resolved after it was changed to Bactrim - Hx prostatitis - PSA wnl - h/o possible HSV labialis, completed empiric ACV - so far: 1,4-zelc-A-glucan level negative on 05/11/2016, CMV PCR undetectable, HSV PCR undetectable, toxo PCR undetectable, bartonella serology negative, HHV6 PCR undetectable recommendations: - Note: on 05/17/2016 Sindi at send out lab learned from [facility] that Gram negative bacteria in his blood cultures on 05/03/2016 were delivered non-viable. German at micro lab re-sent viable specimen to [facility] for speciation and identification on 05/17/2016. It is Gram variable bacteria, non-acineto, non- haemophilus - pending: Parvo B19 serology, HTLV PCR, strongyloides serology, AFB blood cultures - I discussed with Dr. Melgoza: Pt's lymph node is worrisome for lymphoma and as a result the specimen was sent to [facility] Dr. John for review. Turn around time is one week, hopefully by the end of 05/27/2016 - will repeat CD4 and HIV viral load on 05/21/2016 - continue empiric vancomycin (05/04/16-), imipenem (05/05/16-), aztreonam (-), caspofungin (05/09/16-) - continue Stribild (tenofovir/emtricitabine/elvitaegravir/cobicistat) and darunavir 800mg - dosed at 800mg to simulate Prezcobix (darunavir 800mg/ cobicistat 150mg) - continue Bactrim three times a week for pneumocystis prophylaxis - continue weekly azithromycin for MAC prophylaxis management d/w Pt, his RN, charge nurse, Dr. Melgoza the total time I took to care for this Pt today was from 0820 to 0840 and 1350 to 1410 Problems: Consultation Date/Type/Reason Admit Date/Time May 03, 2016 at 19:51 Initial Consult Date 05/06/16 Type of Consultation: ID Referring Provider: NAKIA LUNA MD 24 HR Interval Summary Constitutional: no complaints Detailed Summary Eyes: no complaints ENT: no complaints Respiratory: no complaints Cardiovascular: no complaints Gastrointestinal: no complaints Genitourinary: no complaints Musculoskeletal: restricted range of motion Skin: skin lesions (on b/l LE) Neurologic: focal-weakness Exam/Review of Systems Vital Signs Vitals Vital Signs Date Time Temp Pulse Resp B/P Pulse Ox O2 Delivery O2 Flow Rate FiO2 05/19/16 07:35 98.6 80 20 133/72 96 05/18/16 10:56 21 Intake and Output 05/18/16 05/18/16 05/19/16 15:00 23:00 07:00 Intake Total 450 ml 2525 ml 1410 ml Output Total 1300 ml 1000 ml Balance 450 ml 1225 ml 410 ml Exam Constitutional: alert, oriented, well developed Psych: nl mood/affect, no complaints Head: normocephalic Eyes: nl conjunctiva, nl lids ENMT: nl external ears & nose, nl nasal mucosa & septum Neck: supple Musculoskeletal: range of motion Extremities: No edema Neurological: 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5 H Monocytes # 1.1 H Eosinophils # 3.0 H Basophils # 0.2 H Sodium Level 136 Potassium Level 3.2 L Chloride Level 105 Carbon Dioxide Level 25 Anion Gap 9 Blood Urea Nitrogen 15 Creatinine 0.68 Glucose Level 116 Calcium Level 8.2 L Lab Scanned Report REFERENCE LAB Medications Medications Current Medications Diphenhydramine HCl (Benadryl) 25 mg Q6H PRN IV ITCHING Last administered on 23:33; Admin Dose 25 MG; Start 05/03/16 at 23:30 Morphine Sulfate (morphine) 2 mg Q4H PRN IV PAIN Last administered on 22:45; Admin Dose 2 MG; Start 05/03/16 at 23:30 Enoxaparin Sodium (Lovenox) 40 mg DAILY SC Last administered on 05/19/16 08:39 ; Admin Dose 40 MG; Start 05/04/16 at 09:00 Acetaminophen (Tylenol Tab) 650 mg Q4H PRN PO PAIN AND OR ELEVATED TEMP Last administered on 05/14/16 00:14; Admin Dose 650 MG; Start 05/03/16 at 23:30 Darunavir (Prezista) 800 mg DAILY PO Last administered on 05/19/16 08:31; Admin Dose 800 MG; Start 05/04/16 at 09:00 Acetaminophen/ Hydrocodone Bitart ([place] (5/325)) 1 tab Q4H PRN PO PAIN Last administered on 05/10/16 06:17; Admin Dose 1 TAB; Start 05/03/16 at 23:30 Multivitamins Therapeutic (Theragran) 1 tab DAILY PO Last administered on 08:31; Admin Dose 1 TAB; Start 05/04/16 at 09:00 Azithromycin (Zithromax) 1,200 mg We@09 PO Last administered on 05/18/16 10:37 ; Admin Dose 1,200 MG; Start 05/04/16 at 09:00 Elvitegravir/ Cobicis/Emtricit/ Tenof (Stribild Tablet) 1 each DAILY PO Last administered on 05/19/16 08:30; Admin Dose 1 EACH; Start 05/04/16 at 09:00 Ibuprofen (Motrin) 400 mg Q6H PRN PO PAIN OR TEMP ABOVE 38C Last administered on 05/12/16 23:09; Admin Dose 400 MG; Start 05/04/16 at 11:30 Famotidine (Pepcid) 20 mg DAILY PO Last administered on 05/19/16 08:31; Admin Dose 20 MG; Start 05/04/16 at 12:30 Cyanocobalamin (Vitamin B12 Inj) 1,000 mcg Q28D IM Last administered on 09:45; Admin Dose 1,000 MCG; Start 05/04/16 at 09:00 Loratadine 10 mg 10 mg DAILY PO Last administered on 05/19/16 08:31; Admin Dose 10 MG; Start 05/06/16 at 09:00 Imipenem/ Cilastatin Sodium 100 ml @ 100 mls/hr Q6 IVPB Last administered on 11:27; Admin Dose 100 MLS/HR; Start 05/05/16 at 18:00 Sodium Chloride (NS) 1,000 ml @ 75 mls/hr [id number] IV Last administered on 05/19 11:28; Admin Dose 75 MLS/HR; Start 05/05/16 at 23:30 Aspirin (Aspirin) 325 mg DAILY PO Last administered on 05/19/16 08:31; Admin Dose 325 MG; Start 05/07/16 at 09:00 Eye Lubricant (Artificial Tears Oph) 2 drop QID BOTH EYES Last administered on 05/19/16 08:31; Admin Dose 2 DROP; Start 05/06/16 at 17:00 Diltiazem HCl (Cardizem) 120 mg DAILY PO Last administered on 05/19/16 08:37; Admin Dose 120 MG; Start 05/07/16 at 09:00 Trimethoprim/ Sulfamethoxazole 1 tab 1 tab SuTuTh@09 PO Last administered on 11:27; Admin Dose 1 TAB; Start 05/08/16 at 09:00 Caspofungin 50 mg/ Sodium Chloride 250 ml @ 250 mls/hr Q24H IVPB Last administered on 05/18/16 17:41; Admin Dose 250 MLS/HR; Start 05/09/16 at 16:00 Aztreonam 2 gm/ Sodium Chloride 100 ml @ 100 mls/hr Q8 IVPB Last administered on 05/19/16 06:52; Admin Dose 100 MLS/HR; Start 05/10/16 at 14:30 Vancomycin HCl/ Sodium Chloride (Vancocin/NS) 250 ml @ 83.333 mls/ hr Q12H IVPB Last administered on 05/19/16 08:31; Admin Dose 83.333 MLS/HR; Start at 21:00 Miscellaneous Information (*Rx Drug Level Order Reminder*) VANCO TROUGH @ 2, 000 ON... ONCE ONCE XX ; Start 05/19/16 at 20:00; Stop 05/19/16 at 20:01 JACK LAIRD M.D. May 19, 2016 14:09
--- NOTE | 2016-05-19 14:37 | PN ---
Date/Time of Note Date/Time of Note DATE: 05/19/16 TIME: 14:36 Assessment/Plan Lines/Catheters IV C[facility]ter Type (from [facility]): Peripheral IV Urinary Cath still in place: No Assessment/Plan Assessment/Plan -Sepsis with gram-negative rods bacteremia. Dr. Narayanan group is following infectious disease consultation. Continue antibiotics per ID. S/p biopsy of left supraclavicular lymph node, f/up on path. -Neutropenic fever. Continue neutropenic precautions. Continue broad spectrum antibiotics. -Advanced AIDS. Continue the patient on Stribild, darunavir and Mepron. Continue azithromycin. - Afib with RVR, Dr. Silver is following in cardiology consultation. Continue Cardizem. - Medical non- compliance. - Hypokalemia- repled am labs Sequential compression devices for deep venous thrombosis prophylaxis and Pepcid for peptic ulcer disease prophylaxis. Further recommendations based on clinical course. Plan of care discussed with Dr. Walden. Exam/Review of Systems Vital Signs Vitals Vital Signs Date Time Temp Pulse Resp B/P Pulse Ox O2 Delivery O2 Flow Rate FiO2 05/19/16 07:35 98.6 80 20 133/72 96 05/18/16 10:56 21 Intake and Output 05/18/16 05/18/16 05/19/16 15:00 23:00 07:00 Intake Total 450 ml 2525 ml 1410 ml Output Total 1300 ml 1000 ml Balance 450 ml 1225 ml 410 ml Exam Constitutional: alert, oriented, well developed Psych: nl mood/affect Eyes: EOMI ENMT: nl external ears & nose Respiratory: clear to auscultation Cardiovascular: nl pulses Gastrointestinal: soft Musculoskeletal: nl extremities to inspection Extremities: normal pulses Neurological: nl mental status, nl speech Skin: nl turgor Lymph: enlarged (cervical lymph nodes- tender, enlarged) Results Result Diagram: 05/19/16 0425 05/19/16 042 Results 24 hrs Laboratory Tests Test 05/19/16 04:25 05/19/16 07:46 White Blood Count 10.8 Red Blood Count 3.44 L Hemoglobin 10.0 L Hematocrit 29.2 L Mean Corpuscular Volume 84.9 Mean Corpuscular Hemoglobin 29.1 Mean Corpuscular Hemoglobin Concent 34.2 Red Cell Distribution Width 16.6 H Platelet Count 290 Mean Platelet Volume 9.5 Neutrophils % Lymphocytes % 60.0 H Monocytes % 10.0 Eosinophils % 28.0 H Basophils % 2.0 Neutrophils # Lymphocytes # 6.5 H Monocytes # 1.1 H Eosinophils # 3.0 H Basophils # 0.2 H Sodium Level 136 Potassium Level 3.2 L Chloride Level 105 Carbon Dioxide Level 25 Anion Gap 9 Blood Urea Nitrogen 15 Creatinine 0.68 Glucose Level 116 Calcium Level 8.2 L Lab Scanned Report REFERENCE LAB Medications Medications Current Medications Diphenhydramine HCl (Benadryl) 25 mg Q6H PRN IV ITCHING Last administered on 23:33; Admin Dose 25 MG; Start 05/03/16 at 23:30 Morphine Sulfate (morphine) 2 mg Q4H PRN IV PAIN Last administered on 22:45; Admin Dose 2 MG; Start 05/03/16 at 23:30 Enoxaparin Sodium (Lovenox) 40 mg DAILY SC Last administered on 05/19/16 08:39 ; Admin Dose 40 MG; Start 05/04/16 at 09:00 Acetaminophen (Tylenol Tab) 650 mg Q4H PRN PO PAIN AND OR ELEVATED TEMP Last administered on 05/14/16 00:14; Admin Dose 650 MG; Start 05/03/16 at 23:30 Darunavir (Prezista) 800 mg DAILY PO Last administered on 05/19/16 08:31; Admin Dose 800 MG; Start 05/04/16 at 09:00 Acetaminophen/ Hydrocodone Bitart ([place] (5/325)) 1 tab Q4H PRN PO PAIN Last administered on 05/10/16 06:17; Admin Dose 1 TAB; Start 05/03/16 at 23:30 Multivitamins Therapeutic (Theragran) 1 tab DAILY PO Last administered on 08:31; Admin Dose 1 TAB; Start 05/04/16 at 09:00 Azithromycin (Zithromax) 1,200 mg We@09 PO Last administered on 05/18/16 10:37 ; Admin Dose 1,200 MG; Start 05/04/16 at 09:00 Elvitegravir/ Cobicis/Emtricit/ Tenof (Stribild Tablet) 1 each DAILY PO Last administered on 05/19/16 08:30; Admin Dose 1 EACH; Start 05/04/16 at 09:00 Ibuprofen (Motrin) 400 mg Q6H PRN PO PAIN OR TEMP ABOVE 38C Last administered on 05/12/16 23:09; Admin Dose 400 MG; Start 05/04/16 at 11:30 Famotidine (Pepcid) 20 mg DAILY PO Last administered on 05/19/16 08:31; Admin Dose 20 MG; Start 05/04/16 at 12:30 Cyanocobalamin (Vitamin B12 Inj) 1,000 mcg Q28D IM Last administered on 09:45; Admin Dose 1,000 MCG; Start 05/04/16 at 09:00 Loratadine 10 mg 10 mg DAILY PO Last administered on 05/19/16 08:31; Admin Dose 10 MG; Start 05/06/16 at 09:00 Imipenem/ Cilastatin Sodium 100 ml @ 100 mls/hr Q6 IVPB Last administered on 11:27; Admin Dose 100 MLS/HR; Start 05/05/16 at 18:00 Sodium Chloride (NS) 1,000 ml @ 75 mls/hr [id number] IV Last administered on 05/19 11:28; Admin Dose 75 MLS/HR; Start 05/05/16 at 23:30 Aspirin (Aspirin) 325 mg DAILY PO Last administered on 05/19/16 08:31; Admin Dose 325 MG; Start 05/07/16 at 09:00 Eye Lubricant (Artificial Tears Oph) 2 drop QID BOTH EYES Last administered on 05/19/16 08:31; Admin Dose 2 DROP; Start 05/06/16 at 17:00 Diltiazem HCl (Cardizem) 120 mg DAILY PO Last administered on 05/19/16 08:37; Admin Dose 120 MG; Start 05/07/16 at 09:00 Trimethoprim/ Sulfamethoxazole 1 tab 1 tab SuTuTh@09 PO Last administered on 11:27; Admin Dose 1 TAB; Start 05/08/16 at 09:00 Caspofungin 50 mg/ Sodium Chloride 250 ml @ 250 mls/hr Q24H IVPB Last administered on 05/18/16 17:41; Admin Dose 250 MLS/HR; Start 05/09/16 at 16:00 Aztreonam 2 gm/ Sodium Chloride 100 ml @ 100 mls/hr Q8 IVPB Last administered on 05/19/16 06:52; Admin Dose 100 MLS/HR; Start 05/10/16 at 14:30 Vancomycin HCl/ Sodium Chloride (Vancocin/NS) 250 ml @ 83.333 mls/ hr Q12H IVPB Last administered on 05/19/16 08:31; Admin Dose 83.333 MLS/HR; Start at 21:00 Miscellaneous Information (*Rx Drug Level Order Reminder*) VANCO TROUGH @ 2, 000 ON... ONCE ONCE XX ; Start 05/19/16 at 20:00; Stop 05/19/16 at 20:01 MAXIME MCKEON May 19, 2016 14:37
[2016-05-19] MEDS: CASPOFUNGIN 50 MG in SOD CHLORIDE 0.9% 250 ML IVPB SCH (16:18)
[2016-05-19 21:19] VITALS: BP 131/80; RESP 18
[2016-05-19] MEDS: morphine 2 MG INJ IV PRN (21:31)
[2016-05-20] MEDS: AZTREONAM 2 GM in SOD CHLORIDE 0.9% 100 ML IVPB SCH ×4 (00:29→22:39)
[2016-05-20] MEDS: IMIPENEM-CILAST 500 MG/NS 100 ML IVPB SCH ×4 (02:00→18:12)
[2016-05-20] MEDS: SOD CHLORIDE 0.9% 1,000 ML IV SCH ×2 (05:21→10:10)
[2016-05-20 06:59] LABS: ADD SCAN DIFF NO
[2016-05-20 07:08] LABS: ABNORMAL IP MESSAGE 1; HEMATOCRIT 29.9 % (42.0-52.0); HEMOGLOBIN 10.1 g/dl (14.0-18.0); MEAN CORPUSCULAR HEMOGLOBIN 28.7 pg (29.0-33.0); MEAN CORPUSCULAR HGB CONC 33.8 g/dl (32.0-37.0); MEAN CORPUSCULAR VOLUME 84.9 fl (82.0-101.0); MEAN PLATELET VOLUME 9.6 fl (7.4-10.4); PLATELET COUNT 312 10^3/UL (140-415); RED BLOOD COUNT 3.52 10^6/ul (4.70-6.10); RED CELL DISTRIBUTION WIDTH 16.6 % (11.5-14.5); WHITE BLOOD COUNT 7.8 10^3/ul (4.8-10.8)
[2016-05-20 07:32] LABS: POTASSIUM 3.5 mmol/L (3.5-5.1)
[2016-05-20 07:35] LABS: CREATININE 0.68 mg/dl (0.61-1.24)
[2016-05-20 07:36] LABS: CALCIUM 8.5 mg/dl (8.4-10.2)
[2016-05-20 07:38] VITALS: BP 135/86; RESP 20
[2016-05-20] MEDS: MULTIVITAMINS THERAPEUTIC TAB PO SCH (08:17)
[2016-05-20] MEDS: DILTIAZEM 60 MG TAB PO SCH (08:17)
[2016-05-20] MEDS: ASPIRIN 325 MG TAB PO SCH (08:17)
[2016-05-20] MEDS: FAMOTIDINE 20 MG TAB PO SCH (08:17)
[2016-05-20] MEDS: DARUNAVIR ETHANOLATE 800 MG TABLET PO SCH (08:18)
[2016-05-20] MEDS: ARTIFICIAL TEARS 15 ML OPH BOTH EYES SCH ×4 (08:18→22:44)
[2016-05-20] MEDS: LORATADINE 10 MG TAB PO SCH (08:18)
[2016-05-20] MEDS: ENOXAPARIN 40 MG/0.4 ML SYG SC SCH (08:20)
[2016-05-20] MEDS: VANCOMYCIN 1.5 GM in SOD CHLORIDE 0.9% 250 ML IVPB SCH (09:29)
[2016-05-20 10:08] LABS: BASOPHIL # 0.3 10^3/ul (0.0-0.1); EOSINOPHILS # 3.4 10^3/ul (0.0-0.5); LYMPHOCYTES # 3.5 10^3/ul (0.8-2.9); MONOCYTE # 0.5 10^3/ul (0.3-0.9)
--- NOTE | 2016-05-20 11:02 | CONS ---
Date/Time of Note Date/Time of Note DATE: 05/20/16 TIME: 10:59 Assessment/Plan Assessment/Plan Chief Complaint/Hosp Course - Gram negative bacteremia 05/03/16. CT of abd/pel showed no occult infection. - h/o recurrent neutropenic fever, infectious process vs. immune reconstitution inflammatory response. WBC tagged scan negative from 05/12/2016 - h/o eosiniophillia - advanced AIDS (CD4<20, viral load 166,544 copies in 04/21/2016 & repeat CD4 37 on 05/07/2016), was non-compliant with medications. Restarted on Stribild and darunavir on 04/23/2016. Genotype on 04/20/2016 showed a wild type virus without baseline mutations - neutropenia s/p BMBx, no e/o infections or malignancy at this time. CMV IHC negative, CMV PCR in serum was <200, cocci and crypto negative, QTB gold negative - h/o cough in 03/2016. CXR showed overinflated lungs, CT showed benign appearing sub-centimeter nodule seen at the bilateral lung bases - h/o E. coli in urine, likely colonization. completed treatment for this - LUE weakness and pain due to tear of rotator cuff muscles and bicep tendon anchor - L cervical and supraclavicular lymphadenopathy s/p excisional Bx. Prelim result showed atypical lymphoproliferative lesion - h/o thrush, resolved - hyperpigmented lesions on b/l LE x several months according to Pt - h/o pruritis, probably due to atovaquone. Resolved after it was changed to Bactrim - Hx prostatitis - PSA wnl - h/o possible HSV labialis, completed empiric ACV - so far: 1,8-ihcr-K-glucan level negative on 05/11/2016, CMV PCR undetectable, HSV PCR undetectable, toxo PCR undetectable, bartonella serology negative, HHV6 PCR undetectable lab update: - on 05/17/2016 Sindi at send out lab learned from [facility] that Gram negative bacteria in his blood cultures on 05/03/2016 were delivered non-viable. [place] at micro lab re-sent viable specimen to [facility] for speciation and identification on 05/18/2016. It is Gram variable bacteria, non-acineto, non-haemophilus. I spoke with send-out lab on 05/20/2016, and was instructed to check back on 05/24/2016 recommendations: - pending: Parvo B19 serology, HTLV PCR, strongyloides serology, AFB blood cultures - Pt's lymph node was sent to Dr. John at [facility] for review. The turn around time is one week, hopefully by the end of 05/27/2016 - will repeat CD4 and HIV viral load on 05/21/2016 (tomorrow) - continue empiric imipenem (05/05/16-) and aztreonam (05/10/16-) pending the speciation and sensitivity of Gram negative bacteria in his blood culture on - d/c vancomycin (05/04/16-) and caspofungin (05/09/16-) - continue Stribild (tenofovir/emtricitabine/elvitaegravir/cobicistat) and darunavir 800mg. - continue Bactrim three times a week for pneumocystis prophylaxis - continue weekly azithromycin for MAC prophylaxis - keep Pt on neutropenic precautions because his absolute neutrophil count was 400 on 05/18/2016. Will repeat CBC daily - Pt wants to go home this weekend; I told him that Pt should remain hospitalized because he is neutropenic, and we are waiting for speciation of Gram negative bacteria in his blood, and the result of biopsy management d/w Pt, send out lab, Pt's RN the total time I took to care for this Pt today was from 1130 to 1215 Problems: Consultation Date/Type/Reason Admit Date/Time May 03, 2016 at 19:51 Initial Consult Date 05/06/16 Type of Consultation: ID Referring Provider: NAKAI LUNA MD 24 HR Interval Summary Constitutional: no complaints Detailed Summary Eyes: no complaints ENT: no complaints Respiratory: no complaints Cardiovascular: no complaints Gastrointestinal: no complaints Genitourinary: no complaints Musculoskeletal: no complaints Skin: no complaints Neurologic: no complaints Exam/Review of Systems Vital Signs Vitals Vital Signs Date Time Temp Pulse Resp B/P Pulse Ox O2 Delivery O2 Flow Rate FiO2 05/20/16 07:38 98.6 78 20 135/86 96 05/18/16 10:56 21 Intake and Output 05/19/16 05/19/16 05/20/16 15:00 23:00 07:00 Intake Total 1850 ml 1790 ml Output Total 1100 ml 3000 ml Balance 750 ml -1210 ml Exam Constitutional: alert, oriented, well developed Psych: nl mood/affect, no complaints Head: atraumatic, normocephalic Eyes: nl conjunctiva, nl lids ENMT: nl external ears & nose, nl nasal mucosa & septum Neck: supple Musculoskeletal: nl extremities to inspection Extremities: No edema Neurological: 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 intact, nl mental status, nl speech Skin: other (hyperpigmented lesions on b/l LE) Results Result Diagram: 05/20/16 0540 05/20/16 0540 Results 24 hrs Laboratory Tests Test 05/19/16 20:20 05/20/16 05:40 Vancomycin Level Trough 9.9 L White Blood Count 7.8 # Red Blood Count 3.52 L Hemoglobin 10.1 L Hematocrit 29.9 L Mean Corpuscular Volume 84.9 Mean Corpuscular Hemoglobin 28.7 L Mean Corpuscular Hemoglobin Concent 33.8 Red Cell Distribution Width 16.6 H Platelet Count 312 Mean Platelet Volume 9.6 Neutrophils % Lymphocytes % 45.0 Monocytes % 7.0 Eosinophils % 44.0 H Basophils % 4.0 H Neutrophils # Lymphocytes # 3.5 H Monocytes # 0.5 Eosinophils # 3.4 H Basophils # 0.3 H Sodium Level 136 Potassium Level 3.5 Chloride Level 104 Carbon Dioxide Level 27 Anion Gap 9 Blood Urea Nitrogen 10 Creatinine 0.68 Glucose Level 93 Calcium Level 8.5 Medications Medications Current Medications Diphenhydramine HCl (Benadryl) 25 mg Q6H PRN IV ITCHING Last administered on 23:33; Admin Dose 25 MG; Start 05/03/16 at 23:30 Morphine Sulfate (morphine) 2 mg Q4H PRN IV PAIN Last administered on 21:31; Admin Dose 2 MG; Start 05/03/16 at 23:30 Enoxaparin Sodium (Lovenox) 40 mg DAILY SC Last administered on 05/20/16 08:20 ; Admin Dose 40 MG; Start 05/04/16 at 09:00 Acetaminophen (Tylenol Tab) 650 mg Q4H PRN PO PAIN AND OR ELEVATED TEMP Last administered on 05/14/16 00:14; Admin Dose 650 MG; Start 05/03/16 at 23:30 Darunavir (Prezista) 800 mg DAILY PO Last administered on 05/20/16 08:18; Admin Dose 800 MG; Start 05/04/16 at 09:00 Acetaminophen/ Hydrocodone Bitart ([place] (5/325)) 1 tab Q4H PRN PO PAIN Last administered on 05/10/16 06:17; Admin Dose 1 TAB; Start 05/03/16 at 23:30 Multivitamins Therapeutic (Theragran) 1 tab DAILY PO Last administered on 08:17; Admin Dose 1 TAB; Start 05/04/16 at 09:00 Azithromycin (Zithromax) 1,200 mg We@09 PO Last administered on 05/18/16 10:37 ; Admin Dose 1,200 MG; Start 05/04/16 at 09:00 Elvitegravir/ Cobicis/Emtricit/ Tenof (Stribild Tablet) 1 each DAILY PO Last administered on 05/19/16 08:30; Admin Dose 1 EACH; Start 05/04/16 at 09:00 Ibuprofen (Motrin) 400 mg Q6H PRN PO PAIN OR TEMP ABOVE 38C Last administered on 05/12/16 23:09; Admin Dose 400 MG; Start 05/04/16 at 11:30 Famotidine (Pepcid) 20 mg DAILY PO Last administered on 05/20/16 08:17; Admin Dose 20 MG; Start 05/04/16 at 12:30 Cyanocobalamin (Vitamin B12 Inj) 1,000 mcg Q28D IM Last administered on 09:45; Admin Dose 1,000 MCG; Start 05/04/16 at 09:00 Loratadine 10 mg 10 mg DAILY PO Last administered on 05/20/16 08:18; Admin Dose 10 MG; Start 05/06/16 at 09:00 Imipenem/ Cilastatin Sodium 100 ml @ 100 mls/hr Q6 IVPB Last administered on 07:03; Admin Dose 100 MLS/HR; Start 05/05/16 at 18:00 Sodium Chloride (NS) 1,000 ml @ 75 mls/hr [id number] IV Last administered on 05/20 05:21; Admin Dose 75 MLS/HR; Start 05/05/16 at 23:30 Aspirin (Aspirin) 325 mg DAILY PO Last administered on 05/20/16 08:17; Admin Dose 325 MG; Start 05/07/16 at 09:00 Eye Lubricant (Artificial Tears Oph) 2 drop QID BOTH EYES Last administered on 05/20/16 08:18; Admin Dose 2 DROP; Start 05/06/16 at 17:00 Diltiazem HCl (Cardizem) 120 mg DAILY PO Last administered on 05/20/16 08:17; Admin Dose 120 MG; Start 05/07/16 at 09:00 Trimethoprim/ Sulfamethoxazole 1 tab 1 tab SuTuTh@09 PO Last administered on 11:27; Admin Dose 1 TAB; Start 05/08/16 at 09:00 Aztreonam/Sodium Chloride (Azactam/NS) 100 ml @ 100 mls/hr Q8 IVPB Last administered on 05/20/16 05:20; Admin Dose 100 MLS/HR; Start 05/10/16 at 14:30 JACK LAIRD M.D. May 20, 2016 11:02
[2016-05-20] MEDS: ELVITEGR/COBICIST/EMTRIC/TENOF 1 EACH TABLET PO SCH (12:19)
[2016-05-20] MEDS: morphine 2 MG INJ IV PRN ×2 (13:11→23:00)
--- NOTE | 2016-05-20 14:56 | PN ---
Date/Time of Note Date/Time of Note DATE: 05/20/16 TIME: 14:54 Assessment/Plan VTE Prophylaxis VTE Prophylaxis Intervention: SCD's Lines/Catheters [facility] Type [facility] Saline Lock Urinary Cath still in place: No Assessment/Plan Chief Complaint/Hosp Course ASSESSMENT AND PLAN: -Sepsis with gram-negative rods bacteremia. Dr. Lady reese is following infectious disease consultation. Continue antibiotics per ID. S/p biopsy of left supraclavicular lymph node, f/up on path. -Neutropenic fever. Continue neutropenic precautions. Continue broad spectrum antibiotics. -Advanced AIDS. Continue the patient on Stribild, darunavir and Mepron. Continue azithromycin. - Afib with RVR, Dr. Silver is following in cardiology consultation. Continue Cardizem. - Medical non- compliance. Sequential compression devices for deep venous thrombosis prophylaxis and Pepcid for peptic ulcer disease prophylaxis. Further recommendations based on clinical course. Plan of care discussed with Dr. Walden. Problems: Subjective 24 Hr Interval Summary Free Text/Dictation Patient remains afebrile, denies any nausea vomiting. Exam/Review of Systems Vital Signs Vitals Vital Signs Date Time Temp Pulse Resp B/P Pulse Ox O2 Delivery O2 Flow Rate FiO2 05/20/16 07:38 98.6 78 20 135/86 96 05/18/16 10:56 21 Intake and Output 05/19/16 05/19/16 05/20/16 15:00 23:00 07:00 Intake Total 1850 ml 1790 ml Output Total 1100 ml 3000 ml Balance 750 ml -1210 ml Exam GENERAL: Well-developed, well-nourished male in no acute distress. HEENT: Head is atraumatic, normocephalic. PERRLA. NECK: Supple. LUNGS: Slightly diminished at the bases. Clear in the upper lobes. CARDIOVASCULAR: The patient is tachycardic. Normal S1, S2. No murmurs, gallops, clicks, rubs noted. ABDOMEN: Round, soft, nondistended, nontender. Bowel sounds present. No guarding, no rebound tenderness. EXTREMITIES: There is no edema, clubbing, cyanosis. Pulses equal bilaterally 2 +. SKIN: The patient has diffuse erythema all over his body. There is no maculopapular rash, no petechiae. No ecchymosis noted. NEUROLOGIC: Patient is awake, alert and oriented. Results Result Diagram: 05/20/16 0540 05/20/16 0540 Results 24 hrs Laboratory Tests Test 05/19/16 20:20 05/20/16 05:40 Vancomycin Level Trough 9.9 L White Blood Count 7.8 # Red Blood Count 3.52 L Hemoglobin 10.1 L Hematocrit 29.9 L Mean Corpuscular Volume 84.9 Mean Corpuscular Hemoglobin 28.7 L Mean Corpuscular Hemoglobin Concent 33.8 Red Cell Distribution Width 16.6 H Platelet Count 312 Mean Platelet Volume 9.6 Neutrophils % Lymphocytes % 45.0 Monocytes % 7.0 Eosinophils % 44.0 H Basophils % 4.0 H Neutrophils # Lymphocytes # 3.5 H Monocytes # 0.5 Eosinophils # 3.4 H Basophils # 0.3 H Sodium Level 136 Potassium Level 3.5 Chloride Level 104 Carbon Dioxide Level 27 Anion Gap 9 Blood Urea Nitrogen 10 Creatinine 0.68 Glucose Level 93 Calcium Level 8.5 Medications Medications Current Medications Diphenhydramine HCl (Benadryl) 25 mg Q6H PRN IV ITCHING Last administered on 23:33; Admin Dose 25 MG; Start 05/03/16 at 23:30 Morphine Sulfate (morphine) 2 mg Q4H PRN IV PAIN Last administered on 13:11; Admin Dose 2 MG; Start 05/03/16 at 23:30 Enoxaparin Sodium (Lovenox) 40 mg DAILY SC Last administered on 05/20/16 08:20 ; Admin Dose 40 MG; Start 05/04/16 at 09:00 Acetaminophen (Tylenol Tab) 650 mg Q4H PRN PO PAIN AND OR ELEVATED TEMP Last administered on 05/14/16 00:14; Admin Dose 650 MG; Start 05/03/16 at 23:30 Darunavir (Prezista) 800 mg DAILY PO Last administered on 05/20/16 08:18; Admin Dose 800 MG; Start 05/04/16 at 09:00 Acetaminophen/ Hydrocodone Bitart ([place] (5/325)) 1 tab Q4H PRN PO PAIN Last administered on 05/10/16 06:17; Admin Dose 1 TAB; Start 05/03/16 at 23:30 Multivitamins Therapeutic (Theragran) 1 tab DAILY PO Last administered on 08:17; Admin Dose 1 TAB; Start 05/04/16 at 09:00 Azithromycin (Zithromax) 1,200 mg We@09 PO Last administered on 05/18/16 10:37 ; Admin Dose 1,200 MG; Start 05/04/16 at 09:00 Elvitegravir/ Cobicis/Emtricit/ Tenof (Stribild Tablet) 1 each DAILY PO Last administered on 05/20/16 12:19; Admin Dose 1 EACH; Start 05/04/16 at 09:00 Ibuprofen (Motrin) 400 mg Q6H PRN PO PAIN OR TEMP ABOVE 38C Last administered on 05/12/16 23:09; Admin Dose 400 MG; Start 05/04/16 at 11:30 Famotidine (Pepcid) 20 mg DAILY PO Last administered on 05/20/16 08:17; Admin Dose 20 MG; Start 05/04/16 at 12:30 Cyanocobalamin (Vitamin B12 Inj) 1,000 mcg Q28D IM Last administered on 09:45; Admin Dose 1,000 MCG; Start 05/04/16 at 09:00 Loratadine 10 mg 10 mg DAILY PO Last administered on 05/20/16 08:18; Admin Dose 10 MG; Start 05/06/16 at 09:00 Imipenem/ Cilastatin Sodium 100 ml @ 100 mls/hr Q6 IVPB Last administered on 13:12; Admin Dose 100 MLS/HR; Start 05/05/16 at 18:00 Sodium Chloride (NS) 1,000 ml @ 75 mls/hr [id number] IV Last administered on 05/20 05:21; Admin Dose 75 MLS/HR; Start 05/05/16 at 23:30 Aspirin (Aspirin) 325 mg DAILY PO Last administered on 05/20/16 08:17; Admin Dose 325 MG; Start 05/07/16 at 09:00 Eye Lubricant (Artificial Tears Oph) 2 drop QID BOTH EYES Last administered on 05/20/16 13:12; Admin Dose 2 DROP; Start 05/06/16 at 17:00 Diltiazem HCl (Cardizem) 120 mg DAILY PO Last administered on 05/20/16 08:17; Admin Dose 120 MG; Start 05/07/16 at 09:00 Trimethoprim/ Sulfamethoxazole 1 tab 1 tab SuTuTh@09 PO Last administered on 11:27; Admin Dose 1 TAB; Start 05/08/16 at 09:00 Aztreonam/Sodium Chloride (Azactam/NS) 100 ml @ 100 mls/hr Q8 IVPB Last administered on 05/20/16 05:20; Admin Dose 100 MLS/HR; Start 05/10/16 at 14:30 AAKASH MITCHELL May 20, 2016 14:56
--- NOTE | 2016-05-20 18:25 | CONS ---
Date/Time of Note Date/Time of Note DATE: 05/20/16 TIME: 18:24 Consult Date/Type/Reason Admit Date/Time May 03, 2016 at 19:51 Initial Consult Date 05/06/16 Type of Consultation: Cardiology Ordering Provider: NAKIA LUNA MD Objective Vital Signs Date Time Temp Pulse Resp B/P Pulse Ox O2 Delivery O2 Flow Rate FiO2 05/20/16 07:38 98.6 78 20 135/86 96 05/18/16 10:56 21 Intake and Output 05/19/16 05/19/16 05/20/16 15:00 23:00 07:00 Intake Total 1850 ml 1790 ml Output Total 1100 ml 3000 ml Balance 750 ml -1210 ml Results/Medications Result Diagram: 05/20/16 0540 05/20/16 0540 Results 24 hrs Laboratory Tests Test 05/19/16 20:20 05/20/16 05:40 Vancomycin Level Trough 9.9 L White Blood Count 7.8 # Red Blood Count 3.52 L Hemoglobin 10.1 L Hematocrit 29.9 L Mean Corpuscular Volume 84.9 Mean Corpuscular Hemoglobin 28.7 L Mean Corpuscular Hemoglobin Concent 33.8 Red Cell Distribution Width 16.6 H Platelet Count 312 Mean Platelet Volume 9.6 Neutrophils % Lymphocytes % 45.0 Monocytes % 7.0 Eosinophils % 44.0 H Basophils % 4.0 H Neutrophils # Lymphocytes # 3.5 H Monocytes # 0.5 Eosinophils # 3.4 H Basophils # 0.3 H Sodium Level 136 Potassium Level 3.5 Chloride Level 104 Carbon Dioxide Level 27 Anion Gap 9 Blood Urea Nitrogen 10 Creatinine 0.68 Glucose Level 93 Calcium Level 8.5 Medications Current Medications Diphenhydramine HCl (Benadryl) 25 mg Q6H PRN IV ITCHING Last administered on 23:33; Admin Dose 25 MG; Start 05/03/16 at 23:30 Morphine Sulfate (morphine) 2 mg Q4H PRN IV PAIN Last administered on 13:11; Admin Dose 2 MG; Start 05/03/16 at 23:30 Enoxaparin Sodium (Lovenox) 40 mg DAILY SC Last administered on 05/20/16 08:20 ; Admin Dose 40 MG; Start 05/04/16 at 09:00 Acetaminophen (Tylenol Tab) 650 mg Q4H PRN PO PAIN AND OR ELEVATED TEMP Last administered on 05/14/16 00:14; Admin Dose 650 MG; Start 05/03/16 at 23:30 Darunavir (Prezista) 800 mg DAILY PO Last administered on 05/20/16 08:18; Admin Dose 800 MG; Start 05/04/16 at 09:00 Acetaminophen/ Hydrocodone Bitart ([place] (5/325)) 1 tab Q4H PRN PO PAIN Last administered on 05/10/16 06:17; Admin Dose 1 TAB; Start 05/03/16 at 23:30 Multivitamins Therapeutic (Theragran) 1 tab DAILY PO Last administered on 08:17; Admin Dose 1 TAB; Start 05/04/16 at 09:00 Azithromycin (Zithromax) 1,200 mg We@09 PO Last administered on 05/18/16 10:37 ; Admin Dose 1,200 MG; Start 05/04/16 at 09:00 Elvitegravir/ Cobicis/Emtricit/ Tenof (Stribild Tablet) 1 each DAILY PO Last administered on 05/20/16 12:19; Admin Dose 1 EACH; Start 05/04/16 at 09:00 Ibuprofen (Motrin) 400 mg Q6H PRN PO PAIN OR TEMP ABOVE 38C Last administered on 05/12/16 23:09; Admin Dose 400 MG; Start 05/04/16 at 11:30 Famotidine (Pepcid) 20 mg DAILY PO Last administered on 05/20/16 08:17; Admin Dose 20 MG; Start 05/04/16 at 12:30 Cyanocobalamin (Vitamin B12 Inj) 1,000 mcg Q28D IM Last administered on 09:45; Admin Dose 1,000 MCG; Start 05/04/16 at 09:00 Loratadine 10 mg 10 mg DAILY PO Last administered on 05/20/16 08:18; Admin Dose 10 MG; Start 05/06/16 at 09:00 Imipenem/ Cilastatin Sodium 100 ml @ 100 mls/hr Q6 IVPB Last administered on 18:12; Admin Dose 100 MLS/HR; Start 05/05/16 at 18:00 Sodium Chloride (NS) 1,000 ml @ 75 mls/hr [id number] IV Last administered on 05/20 05:21; Admin Dose 75 MLS/HR; Start 05/05/16 at 23:30 Aspirin (Aspirin) 325 mg DAILY PO Last administered on 05/20/16 08:17; Admin Dose 325 MG; Start 05/07/16 at 09:00 Eye Lubricant (Artificial Tears Oph) 2 drop QID BOTH EYES Last administered on 05/20/16 17:06; Admin Dose 2 DROP; Start 05/06/16 at 17:00 Diltiazem HCl (Cardizem) 120 mg DAILY PO Last administered on 05/20/16 08:17; Admin Dose 120 MG; Start 05/07/16 at 09:00 Trimethoprim/ Sulfamethoxazole 1 tab 1 tab SuTuTh@09 PO Last administered on 11:27; Admin Dose 1 TAB; Start 05/08/16 at 09:00 Aztreonam/Sodium Chloride (Azactam/NS) 100 ml @ 100 mls/hr Q8 IVPB Last administered on 05/20/16 14:56; Admin Dose 100 MLS/HR; Start 05/10/16 at 14:30 Assessment/Plan Chief Complaint/Hosp Course Patient iwth 66 year old M with AIDS recently started on meds, Esophagitis, HTN , who under went new onset Afib with RVR, now going at 150s but asymptomatic. His Cr went up from 0.9 to 1.5. No CP or SOB Problems: Additional Assessment/Plan Pt is cardiac martinez stable ID is following Path pending for LN biopsy will ./MUSA Valenzuela MD May 20, 2016 18:25
[2016-05-20 21:38] VITALS: BP 135/94; RESP 18
[2016-05-21] MEDS: HYDROCODONE/APAP (5/325) TAB PO PRN ×2 (00:19→22:26)
[2016-05-21] MEDS: SOD CHLORIDE 0.9% 1,000 ML IV SCH ×2 (00:19→12:06)
[2016-05-21] MEDS: IMIPENEM-CILAST 500 MG/NS 100 ML IVPB SCH ×4 (00:23→17:18)
[2016-05-21] MEDS: AZTREONAM 2 GM in SOD CHLORIDE 0.9% 100 ML IVPB SCH ×3 (06:38→22:17)
--- NOTE | 2016-05-21 07:37 | CONS ---
Date/Time of Note Date/Time of Note DATE: 05/21/16 TIME: 07:36 Consult Date/Type/Reason Admit Date/Time May 03, 2016 at 19:51 Initial Consult Date 05/06/16 Type of Consultation: Cardiology Ordering Provider: NAKIA LUNA MD Objective Vital Signs Date Time Temp Pulse Resp B/P Pulse Ox O2 Delivery O2 Flow Rate FiO2 05/20/16 21:38 97.9 98 18 135/94 93 05/18/16 10:56 21 Intake and Output 05/20/16 05/20/16 05/21/16 15:00 23:00 07:00 Intake Total 350 ml 1950 ml Output Total 2320 ml Balance 350 ml -370 ml Results/Medications Result Diagram: 05/20/16 0540 05/20/16 0540 Medications Current Medications Diphenhydramine HCl (Benadryl) 25 mg Q6H PRN IV ITCHING Last administered on 23:33; Admin Dose 25 MG; Start 05/03/16 at 23:30 Morphine Sulfate (morphine) 2 mg Q4H PRN IV PAIN Last administered on 23:00; Admin Dose 2 MG; Start 05/03/16 at 23:30 Enoxaparin Sodium (Lovenox) 40 mg DAILY SC Last administered on 05/20/16 08:20 ; Admin Dose 40 MG; Start 05/04/16 at 09:00 Acetaminophen (Tylenol Tab) 650 mg Q4H PRN PO PAIN AND OR ELEVATED TEMP Last administered on 05/14/16 00:14; Admin Dose 650 MG; Start 05/03/16 at 23:30 Darunavir (Prezista) 800 mg DAILY PO Last administered on 05/20/16 08:18; Admin Dose 800 MG; Start 05/04/16 at 09:00 Acetaminophen/ Hydrocodone Bitart ([place] (5/325)) 1 tab Q4H PRN PO PAIN Last administered on 05/21/16 00:19; Admin Dose 1 TAB; Start 05/03/16 at 23:30 Multivitamins Therapeutic (Theragran) 1 tab DAILY PO Last administered on 08:17; Admin Dose 1 TAB; Start 05/04/16 at 09:00 Azithromycin (Zithromax) 1,200 mg We@09 PO Last administered on 05/18/16 10:37 ; Admin Dose 1,200 MG; Start 05/04/16 at 09:00 Elvitegravir/ Cobicis/Emtricit/ Tenof (Stribild Tablet) 1 each DAILY PO Last administered on 05/20/16 12:19; Admin Dose 1 EACH; Start 05/04/16 at 09:00 Ibuprofen (Motrin) 400 mg Q6H PRN PO PAIN OR TEMP ABOVE 38C Last administered on 05/12/16 23:09; Admin Dose 400 MG; Start 05/04/16 at 11:30 Famotidine (Pepcid) 20 mg DAILY PO Last administered on 05/20/16 08:17; Admin Dose 20 MG; Start 05/04/16 at 12:30 Cyanocobalamin (Vitamin B12 Inj) 1,000 mcg Q28D IM Last administered on 09:45; Admin Dose 1,000 MCG; Start 05/04/16 at 09:00 Loratadine 10 mg 10 mg DAILY PO Last administered on 05/20/16 08:18; Admin Dose 10 MG; Start 05/06/16 at 09:00 Imipenem/ Cilastatin Sodium 100 ml @ 100 mls/hr Q6 IVPB Last administered on 05:17; Admin Dose 100 MLS/HR; Start 05/05/16 at 18:00 Sodium Chloride (NS) 1,000 ml @ 75 mls/hr [id number] IV Last administered on 00:19; Admin Dose 75 MLS/HR; Start 05/05/16 at 23:30 Aspirin (Aspirin) 325 mg DAILY PO Last administered on 05/20/16 08:17; Admin Dose 325 MG; Start 05/07/16 at 09:00 Eye Lubricant (Artificial Tears Oph) 2 drop QID BOTH EYES Last administered on 05/20/16 22:44; Admin Dose 2 DROP; Start 05/06/16 at 17:00 Diltiazem HCl (Cardizem) 120 mg DAILY PO Last administered on 05/20/16 08:17; Admin Dose 120 MG; Start 05/07/16 at 09:00 Trimethoprim/ Sulfamethoxazole 1 tab 1 tab SuTuTh@09 PO Last administered on 11:27; Admin Dose 1 TAB; Start 05/08/16 at 09:00 Aztreonam/Sodium Chloride (Azactam/NS) 100 ml @ 100 mls/hr Q8 IVPB Last administered on 05/21/16 06:38; Admin Dose 100 MLS/HR; Start 05/10/16 at 14:30 Assessment/Plan Chief Complaint/Hosp Course Patient iwth 66 year old M with AIDS recently started on meds, Esophagitis, HTN , who under went new onset Afib with RVR, now going at 150s but asymptomatic. His Cr went up from 0.9 to 1.5. No CP or SOB Problems: Additional Assessment/Plan Stable cardiac martinez ID on case WBC 7.8 H/H 10 improved med mx out pt f./u MUSA REYES MD May 21, 2016 07:37
[2016-05-21 07:38] LABS: ADD SCAN DIFF NO
[2016-05-21 07:43] LABS: ABNORMAL IP MESSAGE 1; HEMOGLOBIN 10.2 g/dl (14.0-18.0); MEAN CORPUSCULAR HEMOGLOBIN 29.1 pg (29.0-33.0); MEAN CORPUSCULAR VOLUME 85.5 fl (82.0-101.0); MEAN PLATELET VOLUME 9.4 fl (7.4-10.4); PLATELET COUNT 355 10^3/UL (140-415); RED BLOOD COUNT 3.51 10^6/ul (4.70-6.10); RED CELL DISTRIBUTION WIDTH 16.6 % (11.5-14.5); WHITE BLOOD COUNT 5.9 10^3/ul (4.8-10.8)
[2016-05-21 08:00] VITALS: BP 119/69; RESP 21
[2016-05-21 08:07] LABS: POTASSIUM 3.8 mmol/L (3.5-5.1)
[2016-05-21 08:09] LABS: CREATININE 0.62 mg/dl (0.61-1.24)
[2016-05-21 08:10] LABS: CALCIUM 8.5 mg/dl (8.4-10.2)
[2016-05-21] MEDS: DARUNAVIR ETHANOLATE 800 MG TABLET PO SCH (08:33)
[2016-05-21] MEDS: LORATADINE 10 MG TAB PO SCH (08:33)
[2016-05-21] MEDS: ASPIRIN 325 MG TAB PO SCH (08:33)
[2016-05-21] MEDS: DILTIAZEM 60 MG TAB PO SCH (08:34)
[2016-05-21] MEDS: ARTIFICIAL TEARS 15 ML OPH BOTH EYES SCH ×4 (08:35→22:17)
[2016-05-21] MEDS: MULTIVITAMINS THERAPEUTIC TAB PO SCH (08:35)
[2016-05-21] MEDS: FAMOTIDINE 20 MG TAB PO SCH (08:35)
[2016-05-21] MEDS: ELVITEGR/COBICIST/EMTRIC/TENOF 1 EACH TABLET PO SCH ×2 (08:36→08:45)
[2016-05-21] MEDS: ENOXAPARIN 40 MG/0.4 ML SYG SC SCH (08:36)
[2016-05-21] MEDS: morphine 2 MG INJ IV PRN (08:44)
[2016-05-21 11:46] LABS: BASOPHIL # 0.1 10^3/ul (0.0-0.1); EOSINOPHILS # 1.8 10^3/ul (0.0-0.5); LYMPHOCYTES # 3.4 10^3/ul (0.8-2.9); MONOCYTE # 0.6 10^3/ul (0.3-0.9); NEUTROPHIL # 0.1 10^3/ul (1.6-7.5)
--- NOTE | 2016-05-21 14:03 | PN ---
Date/Time of Note Date/Time of Note DATE: 05/21/16 TIME: 14:02 Assessment/Plan VTE Prophylaxis VTE Prophylaxis Intervention: other Lines/Catheters [facility] ([facility] Saline Lock Urinary Cath still in place: No Assessment/Plan Chief Complaint/Hosp Course -Sepsis with gram-negative rods bacteremia. Dr. Lady reese is following infectious disease consultation. Continue antibiotics per ID. S/p biopsy of left supraclavicular lymph node, f/up on path. -Neutropenic fever. Continue neutropenic precautions. Continue broad spectrum antibiotics. -Advanced AIDS. Continue the patient on Stribild, darunavir and Mepron. Continue azithromycin. - Afib with RVR, Dr. Silver is following in cardiology consultation. Continue Cardizem. Problems: Subjective 24 Hr Interval Summary Free Text/Dictation Patient wants to go home Exam/Review of Systems Vital Signs Vitals Vital Signs Date Time Temp Pulse Resp B/P Pulse Ox O2 Delivery O2 Flow Rate FiO2 05/21/16 08:00 97.7 81 21 119/69 21 05/18/16 10:56 21 Intake and Output 05/20/16 05/20/16 05/21/16 14:59 22:59 06:59 Intake Total 350 ml 1950 ml 1130 ml Output Total 2320 ml 3000 ml Balance 350 ml -370 ml -1870 ml Exam Constitutional: well developed Head: atraumatic, normocephalic Neck: supple Respiratory: clear to auscultation Cardiovascular: regular rate and rhythm Gastrointestinal: non-tender, soft Extremities: normal pulses Results Result Diagram: 05/21/16 0625 05/21/16 0625 Results 24 hrs Laboratory Tests Test 05/21/16 06:25 White Blood Count 5.9 # Red Blood Count 3.51 L Hemoglobin 10.2 L Hematocrit 30.0 L Mean Corpuscular Volume 85.5 Mean Corpuscular Hemoglobin 29.1 Mean Corpuscular Hemoglobin Concent 34.0 Red Cell Distribution Width 16.6 H Platelet Count 355 Mean Platelet Volume 9.4 Neutrophils % 1.0 L Lymphocytes % 57.0 H Monocytes % 10.0 Eosinophils % 31.0 H Basophils % 1.0 Nucleated Red Blood Cells % Neutrophils # 0.1 L Lymphocytes # 3.4 H Monocytes # 0.6 Eosinophils # 1.8 H Basophils # 0.1 Nucleated Red Blood Cells # Differential Comment MANUAL DIFF Sodium Level 136 Potassium Level 3.8 Chloride Level 106 Carbon Dioxide Level 25 Anion Gap 9 Blood Urea Nitrogen 13 Creatinine 0.62 Glucose Level 103 Calcium Level 8.5 Medications Medications Current Medications Diphenhydramine HCl (Benadryl) 25 mg Q6H PRN IV ITCHING Last administered on 23:33; Admin Dose 25 MG; Start 05/03/16 at 23:30 Morphine Sulfate (morphine) 2 mg Q4H PRN IV PAIN Last administered on 05/21/16 08:44; Admin Dose 2 MG; Start 05/03/16 at 23:30 Enoxaparin Sodium (Lovenox) 40 mg DAILY SC Last administered on 05/21/16 08:36 ; Admin Dose 40 MG; Start 05/04/16 at 09:00 Acetaminophen (Tylenol Tab) 650 mg Q4H PRN PO PAIN AND OR ELEVATED TEMP Last administered on 05/14/16 00:14; Admin Dose 650 MG; Start 05/03/16 at 23:30 Darunavir (Prezista) 800 mg DAILY PO Last administered on 05/21/16 08:33; Admin Dose 800 MG; Start 05/04/16 at 09:00 Acetaminophen/ Hydrocodone Bitart ([place] (5/325)) 1 tab Q4H PRN PO PAIN Last administered on 05/21/16 00:19; Admin Dose 1 TAB; Start 05/03/16 at 23:30 Multivitamins Therapeutic (Theragran) 1 tab DAILY PO Last administered on 08:35; Admin Dose 1 TAB; Start 05/04/16 at 09:00 Azithromycin (Zithromax) 1,200 mg We@09 PO Last administered on 05/18/16 10:37 ; Admin Dose 1,200 MG; Start 05/04/16 at 09:00 Elvitegravir/ Cobicis/Emtricit/ Tenof (Stribild Tablet) 1 each DAILY PO Last administered on 05/21/16 08:45; Admin Dose 1 EACH; Start 05/04/16 at 09:00 Ibuprofen (Motrin) 400 mg Q6H PRN PO PAIN OR TEMP ABOVE 38C Last administered on 05/12/16 23:09; Admin Dose 400 MG; Start 05/04/16 at 11:30 Famotidine (Pepcid) 20 mg DAILY PO Last administered on 05/21/16 08:35; Admin Dose 20 MG; Start 05/04/16 at 12:30 Cyanocobalamin (Vitamin B12 Inj) 1,000 mcg Q28D IM Last administered on 09:45; Admin Dose 1,000 MCG; Start 05/04/16 at 09:00 Loratadine 10 mg 10 mg DAILY PO Last administered on 05/21/16 08:33; Admin Dose 10 MG; Start 05/06/16 at 09:00 Imipenem/ Cilastatin Sodium 100 ml @ 100 mls/hr Q6 IVPB Last administered on 12:05; Admin Dose 100 MLS/HR; Start 05/05/16 at 18:00 Sodium Chloride (NS) 1,000 ml @ 75 mls/hr [id number] IV Last administered on 12:06; Admin Dose 75 MLS/HR; Start 05/05/16 at 23:30 Aspirin (Aspirin) 325 mg DAILY PO Last administered on 05/21/16 08:33; Admin Dose 325 MG; Start 05/07/16 at 09:00 Eye Lubricant (Artificial Tears Oph) 2 drop QID BOTH EYES Last administered on 05/21/16 12:06; Admin Dose 2 DROP; Start 05/06/16 at 17:00 Diltiazem HCl (Cardizem) 120 mg DAILY PO Last administered on 05/21/16 08:34; Admin Dose 120 MG; Start 05/07/16 at 09:00 Trimethoprim/ Sulfamethoxazole 1 tab 1 tab SuTuTh@09 PO Last administered on 11:27; Admin Dose 1 TAB; Start 05/08/16 at 09:00 Aztreonam/Sodium Chloride (Azactam/NS) 100 ml @ 100 mls/hr Q8 IVPB Last administered on 05/21/16 06:38; Admin Dose 100 MLS/HR; Start 05/10/16 at 14:30 MARIO CARTWRIGHT May 21, 2016 14:03
--- NOTE | 2016-05-21 20:09 | CONS ---
AVERY SHAHID WELDING SUPERVISOR 05/21/16 2009: Date/Time of Note Date/Time of Note DATE: 05/21/16 TIME: 20:08 Assessment/Plan Assessment/Plan Chief Complaint/Hosp Course - Gram negative bacteremia 05/03/16. CT of abd/pel showed no occult infection. - h/o recurrent neutropenic fever, infectious process vs. immune reconstitution inflammatory response. WBC tagged scan negative from 05/12/2016 - h/o eosiniophillia - advanced AIDS (CD4<20, viral load 166,544 copies in 04/21/2016 & repeat CD4 37 on 05/07/2016), was non-compliant with medications. Restarted on Stribild and darunavir on 04/23/2016. Genotype on 04/20/2016 showed a wild type virus without baseline mutations - neutropenia s/p BMBx, no e/o infections or malignancy at this time. CMV IHC negative, CMV PCR in serum was <200, cocci and crypto negative, QTB gold negative - h/o cough in 03/2016. CXR showed overinflated lungs, CT showed benign appearing sub-centimeter nodule seen at the bilateral lung bases - h/o E. coli in urine, likely colonization. completed treatment for this - LUE weakness and pain due to tear of rotator cuff muscles and bicep tendon anchor - L cervical and supraclavicular lymphadenopathy s/p excisional Bx. Prelim result showed atypical lymphoproliferative lesion - h/o thrush, resolved - hyperpigmented lesions on b/l LE x several months according to Pt - h/o pruritis, probably due to atovaquone. Resolved after it was changed to Bactrim - Hx prostatitis - PSA wnl - h/o possible HSV labialis, completed empiric ACV - so far: 1,5-jrqh-Y-glucan level negative on 05/11/2016, CMV PCR undetectable, HSV PCR undetectable, toxo PCR undetectable, bartonella serology negative, HHV6 PCR undetectable lab update: - on 05/17/2016 Sindi at send out lab learned from [facility] that Gram negative bacteria in his blood cultures on 05/03/2016 were delivered non-viable. German at micro lab re-sent viable specimen to [facility] for speciation and identification on 05/18/2016. It is Gram variable bacteria, non-acineto, non-haemophilus. I spoke with send-out lab on 05/20/2016, and was instructed to check back on 05/24/2016 recommendations: - pending: Parvo B19 serology, HTLV PCR, strongyloides serology, AFB blood cultures - Pt's lymph node was sent to Dr. John at [facility] for review. The turn around time is one week, hopefully by the end of 05/27/2016 - will repeat CD4 and HIV viral load on 05/22/2016 (tomorrow) - continue empiric imipenem (05/05/16-) and aztreonam (05/10/16-) pending the speciation and sensitivity of Gram negative bacteria in his blood culture on - continue Stribild (tenofovir/emtricitabine/elvitaegravir/cobicistat) and darunavir 800mg. - continue Bactrim three times a week for pneumocystis prophylaxis - continue weekly azithromycin for MAC prophylaxis - keep Pt on neutropenic precautions because his absolute neutrophil count was 400 on 05/18/2016. Will repeat CBC daily - Pt wants to go home this tomorrow; I told him that Pt should remain hospitalized because he is neutropenic, and we are waiting for speciation of Gram negative bacteria in his blood, and the result of biopsy - Mgmt d/w Pt - Above d/w Dr. Melara Problems: Consultation Date/Type/Reason Admit Date/Time May 03, 2016 at 19:51 Initial Consult Date 05/06/16 Type of Consultation: Infectious Disease Referring Provider: NAKIA LUNA MD 24 HR Interval Summary Free Text/Dictation Pt states "I have to be discharged home tomorrow so that I can make it to court on Monday. I can come back to the hospital afterwards because I know I'm still sick. I just can't have this thing on my record." Denies CP or SOB. States nausea, pruritus and appetite has improved. Has same LUE pain and weakness. Exam/Review of Systems Vital Signs Vitals Vital Signs Date Time Temp Pulse Resp B/P Pulse Ox O2 Delivery O2 Flow Rate FiO2 05/21/16 08:00 97.7 81 21 119/69 21 05/18/16 10:56 21 Intake and Output 05/20/16 05/20/16 05/21/16 15:00 23:00 07:00 Intake Total 350 ml 1950 ml 1130 ml Output Total 2320 ml 3000 ml Balance 350 ml -370 ml -1870 ml Exam Constitutional: alert, oriented, well developed Psych: nl mood/affect Head: atraumatic, normocephalic Neck: supple Respiratory: diminished breath sounds Cardiovascular: regular rate and rhythm Gastrointestinal: non-tender, soft Neurological: focal weakness (LUE) Skin: nl turgor, other (hyperpigmented lesions of BLE) Lymph: enlarged (right neck) Results Result Diagram: 05/21/1662405/21/16624 Results 24 hrs Laboratory Tests Test 05/21/16 06:25 White Blood Count 5.9 # Red Blood Count 3.51 L Hemoglobin 10.2 L Hematocrit 30.0 L Mean Corpuscular Volume 85.5 Mean Corpuscular Hemoglobin 29.1 Mean Corpuscular Hemoglobin Concent 34.0 Red Cell Distribution Width 16.6 H Platelet Count 355 Mean Platelet Volume 9.4 Neutrophils % 1.0 L Lymphocytes % 57.0 H Monocytes % 10.0 Eosinophils % 31.0 H Basophils % 1.0 Nucleated Red Blood Cells % Neutrophils # 0.1 L Lymphocytes # 3.4 H Monocytes # 0.6 Eosinophils # 1.8 H Basophils # 0.1 Nucleated Red Blood Cells # Differential Comment MANUAL DIFF Sodium Level 136 Potassium Level 3.8 Chloride Level 106 Carbon Dioxide Level 25 Anion Gap 9 Blood Urea Nitrogen 13 Creatinine 0.62 Glucose Level 103 Calcium Level 8.5 Medications Medications Current Medications Diphenhydramine HCl (Benadryl) 25 mg Q6H PRN IV ITCHING Last administered on 23:33; Admin Dose 25 MG; Start 05/03/16 at 23:30 Morphine Sulfate (morphine) 2 mg Q4H PRN IV PAIN Last administered on 05/21/16 08:44; Admin Dose 2 MG; Start 05/03/16 at 23:30 Enoxaparin Sodium (Lovenox) 40 mg DAILY SC Last administered on 05/21/16 08:36 ; Admin Dose 40 MG; Start 05/04/16 at 09:00 Acetaminophen (Tylenol Tab) 650 mg Q4H PRN PO PAIN AND OR ELEVATED TEMP Last administered on 05/14/16 00:14; Admin Dose 650 MG; Start 05/03/16 at 23:30 Darunavir (Prezista) 800 mg DAILY PO Last administered on 05/21/16 08:33; Admin Dose 800 MG; Start 05/04/16 at 09:00 Acetaminophen/ Hydrocodone Bitart ([place] (5/325)) 1 tab Q4H PRN PO PAIN Last administered on 05/21/16 00:19; Admin Dose 1 TAB; Start 05/03/16 at 23:30 Multivitamins Therapeutic (Theragran) 1 tab DAILY PO Last administered on 08:35; Admin Dose 1 TAB; Start 05/04/16 at 09:00 Azithromycin (Zithromax) 1,200 mg We@09 PO Last administered on 05/18/16 10:37 ; Admin Dose 1,200 MG; Start 05/04/16 at 09:00 Elvitegravir/ Cobicis/Emtricit/ Tenof (Stribild Tablet) 1 each DAILY PO Last administered on 05/21/16 08:45; Admin Dose 1 EACH; Start 05/04/16 at 09:00 Ibuprofen (Motrin) 400 mg Q6H PRN PO PAIN OR TEMP ABOVE 38C Last administered on 05/12/16 23:09; Admin Dose 400 MG; Start 05/04/16 at 11:30 Famotidine (Pepcid) 20 mg DAILY PO Last administered on 05/21/16 08:35; Admin Dose 20 MG; Start 05/04/16 at 12:30 Cyanocobalamin (Vitamin B12 Inj) 1,000 mcg Q28D IM Last administered on 09:45; Admin Dose 1,000 MCG; Start 05/04/16 at 09:00 Loratadine 10 mg 10 mg DAILY PO Last administered on 05/21/16 08:33; Admin Dose 10 MG; Start 05/06/16 at 09:00 Imipenem/ Cilastatin Sodium 100 ml @ 100 mls/hr Q6 IVPB Last administered on 17:18; Admin Dose 100 MLS/HR; Start 05/05/16 at 18:00 Sodium Chloride (NS) 1,000 ml @ 75 mls/hr [id number] IV Last administered on 12:06; Admin Dose 75 MLS/HR; Start 05/05/16 at 23:30 Aspirin (Aspirin) 325 mg DAILY PO Last administered on 05/21/16 08:33; Admin Dose 325 MG; Start 05/07/16 at 09:00 Eye Lubricant (Artificial Tears Oph) 2 drop QID BOTH EYES Last administered on 05/21/16 17:18; Admin Dose 2 DROP; Start 05/06/16 at 17:00 Diltiazem HCl (Cardizem) 120 mg DAILY PO Last administered on 05/21/16 08:34; Admin Dose 120 MG; Start 05/07/16 at 09:00 Trimethoprim/ Sulfamethoxazole 1 tab 1 tab SuTuTh@09 PO Last administered on 11:27; Admin Dose 1 TAB; Start 05/08/16 at 09:00 Aztreonam/Sodium Chloride (Azactam/NS) 100 ml @ 100 mls/hr Q8 IVPB Last administered on 05/21/16 14:06; Admin Dose 100 MLS/HR; Start 05/10/16 at 14:30 JACK MELARA M.D. 05/23/16 1042: Assessment/Plan Assessment/Plan Chief Complaint/Hosp Course Saritha attestation: I discussed the management with HORTENSIA Shahid and agree with above. Problems: Exam/Review of Systems Results Result Diagram: 05/21/1625 05/21/1625 AVERY SHAHID NP May 21, 2016 20:09 JACK MELARA M.D. May 23, 2016 10:42 Eye Lubricant (Artificial Tears Oph) 2 drop QID BOTH EYES Last administered on 05/21/16 17:18; Admin Dose 2 DROP; Start 05/06/16 at 17:00 Diltiazem HCl (Cardizem) 120 mg DAILY PO Last administered on 05/21/16 08:34; Admin Dose 120 MG; Start 05/07/16 at 09:00 Trimethoprim/ Sulfamethoxazole 1 tab 1 tab SuTuTh@09 PO Last administered on 11:27; Admin Dose 1 TAB; Start 05/08/16 at 09:00 Aztreonam/Sodium Chloride (Azactam/NS) 100 ml @ 100 mls/hr Q8 IVPB Last administered on 05/21/16 14:06; Admin Dose 100 MLS/HR; Start 05/10/16 at 14:30 AVERY SHAHID NP May 21, 2016 20:09
[2016-05-21 20:33] VITALS: BP 143/95; RESP 18
[2016-05-22] MEDS: IMIPENEM-CILAST 500 MG/NS 100 ML IVPB SCH ×4 (00:07→17:53)
[2016-05-22] MEDS: morphine 2 MG INJ IV PRN (00:08)
[2016-05-22] MEDS: AZTREONAM 2 GM in SOD CHLORIDE 0.9% 100 ML IVPB SCH ×2 (05:08→14:30)
[2016-05-22 06:10] LABS: ADD SCAN DIFF NO
[2016-05-22] MEDS: SOD CHLORIDE 0.9% 1,000 ML IV SCH ×2 (06:19→15:30)
[2016-05-22 06:35] LABS: ABNORMAL IP MESSAGE 1; HEMATOCRIT 28.8 % (42.0-52.0); HEMOGLOBIN 9.7 g/dl (14.0-18.0); MEAN CORPUSCULAR HEMOGLOBIN 29.3 pg (29.0-33.0); MEAN CORPUSCULAR HGB CONC 33.7 g/dl (32.0-37.0); MEAN PLATELET VOLUME 9.3 fl (7.4-10.4); PLATELET COUNT 335 10^3/UL (140-415); RED BLOOD COUNT 3.31 10^6/ul (4.70-6.10); RED CELL DISTRIBUTION WIDTH 17.2 % (11.5-14.5); WHITE BLOOD COUNT 4.8 10^3/ul (4.8-10.8)
[2016-05-22 06:41] LABS: POTASSIUM 3.5 mmol/L (3.5-5.1)
[2016-05-22 06:44] LABS: CREATININE 0.64 mg/dl (0.61-1.24)
[2016-05-22 06:45] LABS: CALCIUM 8.4 mg/dl (8.4-10.2)
[2016-05-22 08:30] VITALS: BP 120/70; RESP 17
[2016-05-22] MEDS: ARTIFICIAL TEARS 15 ML OPH BOTH EYES SCH ×3 (09:16→17:47)
[2016-05-22] MEDS: LORATADINE 10 MG TAB PO SCH (09:17)
[2016-05-22] MEDS: MULTIVITAMINS THERAPEUTIC TAB PO SCH (09:17)
[2016-05-22] MEDS: DARUNAVIR ETHANOLATE 800 MG TABLET PO SCH (09:17)
[2016-05-22] MEDS: FAMOTIDINE 20 MG TAB PO SCH (09:17)
[2016-05-22] MEDS: DILTIAZEM 60 MG TAB PO SCH (09:18)
[2016-05-22] MEDS: ENOXAPARIN 40 MG/0.4 ML SYG SC SCH (09:19)
[2016-05-22] MEDS: TRIMETHOPRIM/SULFAMETHOX (DS) TAB PO SCH (09:21)
[2016-05-22 09:24] LABS: EOSINOPHILS # 1.1 10^3/ul (0.0-0.5); LYMPHOCYTES # 3.2 10^3/ul (0.8-2.9); MONOCYTE # 0.4 10^3/ul (0.3-0.9); NEUTROPHIL # 0.1 10^3/ul (1.6-7.5)
[2016-05-22] MEDS: ASPIRIN 325 MG TAB PO SCH (09:24)
--- NOTE | 2016-05-22 11:50 | CONS ---
Date/Time of Note Date/Time of Note DATE: 05/22/16 TIME: 11:49 Consult Date/Type/Reason Admit Date/Time May 03, 2016 at 19:51 Initial Consult Date 05/06/16 Type of Consultation: card Ordering Provider: NAKIA LUNA MD Objective Vital Signs Date Time Temp Pulse Resp B/P Pulse Ox O2 Delivery O2 Flow Rate FiO2 05/22/16 08:30 98.5 79 17 120/70 98 05/18/16 10:56 21 Intake and Output 05/21/16 05/21/16 05/22/16 15:00 23:00 07:00 Intake Total 550 ml 1500 ml 1655 ml Output Total 900 ml 1800 ml Balance 550 ml 600 ml -145 ml Results/Medications Result Diagram: 05/22/16 0543 05/22/16 0543 Results 24 hrs Laboratory Tests Test 05/22/16 05:43 White Blood Count 4.8 Red Blood Count 3.31 L Hemoglobin 9.7 L Hematocrit 28.8 L Mean Corpuscular Volume 87.0 Mean Corpuscular Hemoglobin 29.3 Mean Corpuscular Hemoglobin Concent 33.7 Red Cell Distribution Width 17.2 H Platelet Count 335 Mean Platelet Volume 9.3 Neutrophils % 2.0 L Lymphocytes % 66.0 H Monocytes % 8.0 Eosinophils % 23.0 H Basophils % 1.0 Neutrophils # 0.1 L Lymphocytes # 3.2 H Monocytes # 0.4 Eosinophils # 1.1 H Basophils # 0.0 Sodium Level 140 Potassium Level 3.5 Chloride Level 106 Carbon Dioxide Level 25 Anion Gap 13 Blood Urea Nitrogen 18 Creatinine 0.64 Glucose Level 96 Calcium Level 8.4 Medications Current Medications Diphenhydramine HCl (Benadryl) 25 mg Q6H PRN IV ITCHING Last administered on 23:33; Admin Dose 25 MG; Start 05/03/16 at 23:30 Morphine Sulfate (morphine) 2 mg Q4H PRN IV PAIN Last administered on 05/22/16 00:08; Admin Dose 2 MG; Start 05/03/16 at 23:30 Enoxaparin Sodium (Lovenox) 40 mg DAILY SC Last administered on 05/22/16 09:19 ; Admin Dose 40 MG; Start 05/04/16 at 09:00 Acetaminophen (Tylenol Tab) 650 mg Q4H PRN PO PAIN AND OR ELEVATED TEMP Last administered on 05/14/16 00:14; Admin Dose 650 MG; Start 05/03/16 at 23:30 Darunavir (Prezista) 800 mg DAILY PO Last administered on 05/22/16 09:17; Admin Dose 800 MG; Start 05/04/16 at 09:00 Acetaminophen/ Hydrocodone Bitart ([place] (5/325)) 1 tab Q4H PRN PO PAIN Last administered on 05/21/16 22:26; Admin Dose 1 TAB; Start 05/03/16 at 23:30 Multivitamins Therapeutic (Theragran) 1 tab DAILY PO Last administered on 09:17; Admin Dose 1 TAB; Start 05/04/16 at 09:00 Azithromycin (Zithromax) 1,200 mg We@09 PO Last administered on 05/18/16 10:37 ; Admin Dose 1,200 MG; Start 05/04/16 at 09:00 Elvitegravir/ Cobicis/Emtricit/ Tenof (Stribild Tablet) 1 each DAILY PO Last administered on 05/21/16 08:45; Admin Dose 1 EACH; Start 05/04/16 at 09:00 Ibuprofen (Motrin) 400 mg Q6H PRN PO PAIN OR TEMP ABOVE 38C Last administered on 05/12/16 23:09; Admin Dose 400 MG; Start 05/04/16 at 11:30 Famotidine (Pepcid) 20 mg DAILY PO Last administered on 05/22/16 09:17; Admin Dose 20 MG; Start 05/04/16 at 12:30 Cyanocobalamin (Vitamin B12 Inj) 1,000 mcg Q28D IM Last administered on 09:45; Admin Dose 1,000 MCG; Start 05/04/16 at 09:00 Loratadine 10 mg 10 mg DAILY PO Last administered on 05/22/16 09:17; Admin Dose 10 MG; Start 05/06/16 at 09:00 Imipenem/ Cilastatin Sodium 100 ml @ 100 mls/hr Q6 IVPB Last administered on 06:20; Admin Dose 100 MLS/HR; Start 05/05/16 at 18:00 Sodium Chloride (NS) 1,000 ml @ 75 mls/hr [id number] IV Last administered on 06:19; Admin Dose 75 MLS/HR; Start 05/05/16 at 23:30 Aspirin (Aspirin) 325 mg DAILY PO Last administered on 05/22/16 09:24; Admin Dose 325 MG; Start 05/07/16 at 09:00 Eye Lubricant (Artificial Tears Oph) 2 drop QID BOTH EYES Last administered on 05/22/16 09:16; Admin Dose 2 DROP; Start 05/06/16 at 17:00 Diltiazem HCl (Cardizem) 120 mg DAILY PO Last administered on 05/22/16 09:18; Admin Dose 120 MG; Start 05/07/16 at 09:00 Trimethoprim/ Sulfamethoxazole 1 tab 1 tab SuTuTh@09 PO Last administered on 09:21; Admin Dose 1 TAB; Start 05/08/16 at 09:00 Aztreonam/Sodium Chloride (Azactam/NS) 100 ml @ 100 mls/hr Q8 IVPB Last administered on 05/22/16 05:08; Admin Dose 100 MLS/HR; Start 05/10/16 at 14:30 Assessment/Plan Chief Complaint/Hosp Course Patient iwth 66 year old M with AIDS recently started on meds, Esophagitis, HTN , who under went new onset Afib with RVR, now going at 150s but asymptomatic. His Cr went up from 0.9 to 1.5. No CP or SOB Problems: Additional Assessment/Plan Cardiac martinez stable parox afib on ASA stable ID f/u MUSA REYES MD May 22, 2016 11:50
[2016-05-22] MEDS: ELVITEGR/COBICIST/EMTRIC/TENOF 1 EACH TABLET PO SCH (12:29)
--- NOTE | 2016-05-22 12:51 | PN ---
Date/Time of Note Date/Time of Note DATE: 05/22/16 TIME: 12:51 Assessment/Plan VTE Prophylaxis VTE Prophylaxis Intervention: other Lines/Catheters IV C[facility]ter Type [facility]from [facility]): [facility] [facility] Urinary Cath still in place: No Assessment/Plan Chief Complaint/Hosp Course -Sepsis with gram-negative rods bacteremia. Dr. Lady reese is following infectious disease consultation. Continue antibiotics per ID. S/p biopsy of left supraclavicular lymph node, f/up on path. -Neutropenic fever. Continue neutropenic precautions. Continue broad spectrum antibiotics. -Advanced AIDS. Continue the patient on Stribild, darunavir and Mepron. Continue azithromycin. - Afib with RVR, Dr. Silver is following in cardiology consultation. Continue Cardizem. Problems: Subjective 24 Hr Interval Summary Free Text/Dictation Patient wants to leave despite his neutropenia, he understands his risk but is still going forward Exam/Review of Systems Vital Signs Vitals Vital Signs Date Time Temp Pulse Resp B/P Pulse Ox O2 Delivery O2 Flow Rate FiO2 05/22/16 08:30 98.5 79 17 120/70 98 05/18/16 10:56 21 Intake and Output 05/21/16 05/21/16 05/22/16 15:00 23:00 07:00 Intake Total 550 ml 1500 ml 1655 ml Output Total 900 ml 1800 ml Balance 550 ml 600 ml -145 ml Exam Constitutional: well developed Head: atraumatic, normocephalic Respiratory: clear to auscultation Cardiovascular: regular rate and rhythm Gastrointestinal: non-tender, soft Extremities: normal pulses Results Result Diagram: 05/22/16 0543 05/22/16 0543 Results 24 hrs Laboratory Tests Test 05/22/16 05:43 White Blood Count 4.8 Red Blood Count 3.31 L Hemoglobin 9.7 L Hematocrit 28.8 L Mean Corpuscular Volume 87.0 Mean Corpuscular Hemoglobin 29.3 Mean Corpuscular Hemoglobin Concent 33.7 Red Cell Distribution Width 17.2 H Platelet Count 335 Mean Platelet Volume 9.3 Neutrophils % 2.0 L Lymphocytes % 66.0 H Monocytes % 8.0 Eosinophils % 23.0 H Basophils % 1.0 Neutrophils # 0.1 L Lymphocytes # 3.2 H Monocytes # 0.4 Eosinophils # 1.1 H Basophils # 0.0 Sodium Level 140 Potassium Level 3.5 Chloride Level 106 Carbon Dioxide Level 25 Anion Gap 13 Blood Urea Nitrogen 18 Creatinine 0.64 Glucose Level 96 Calcium Level 8.4 Medications Medications Current Medications Diphenhydramine HCl (Benadryl) 25 mg Q6H PRN IV ITCHING Last administered on 23:33; Admin Dose 25 MG; Start 05/03/16 at 23:30 Morphine Sulfate (morphine) 2 mg Q4H PRN IV PAIN Last administered on 05/22/16 00:08; Admin Dose 2 MG; Start 05/03/16 at 23:30 Enoxaparin Sodium (Lovenox) 40 mg DAILY SC Last administered on 05/22/16 09:19 ; Admin Dose 40 MG; Start 05/04/16 at 09:00 Acetaminophen (Tylenol Tab) 650 mg Q4H PRN PO PAIN AND OR ELEVATED TEMP Last administered on 05/14/16 00:14; Admin Dose 650 MG; Start 05/03/16 at 23:30 Darunavir (Prezista) 800 mg DAILY PO Last administered on 05/22/16 09:17; Admin Dose 800 MG; Start 05/04/16 at 09:00 Acetaminophen/ Hydrocodone Bitart ([place] (5/325)) 1 tab Q4H PRN PO PAIN Last administered on 05/21/16 22:26; Admin Dose 1 TAB; Start 05/03/16 at 23:30 Multivitamins Therapeutic (Theragran) 1 tab DAILY PO Last administered on 09:17; Admin Dose 1 TAB; Start 05/04/16 at 09:00 Azithromycin (Zithromax) 1,200 mg We@09 PO Last administered on 05/18/16 10:37 ; Admin Dose 1,200 MG; Start 05/04/16 at 09:00 Elvitegravir/ Cobicis/Emtricit/ Tenof (Stribild Tablet) 1 each DAILY PO Last administered on 05/22/16 12:29; Admin Dose 1 EACH; Start 05/04/16 at 09:00 Ibuprofen (Motrin) 400 mg Q6H PRN PO PAIN OR TEMP ABOVE 38C Last administered on 05/12/16 23:09; Admin Dose 400 MG; Start 05/04/16 at 11:30 Famotidine (Pepcid) 20 mg DAILY PO Last administered on 05/22/16 09:17; Admin Dose 20 MG; Start 05/04/16 at 12:30 Cyanocobalamin (Vitamin B12 Inj) 1,000 mcg Q28D IM Last administered on 09:45; Admin Dose 1,000 MCG; Start 05/04/16 at 09:00 Loratadine 10 mg 10 mg DAILY PO Last administered on 05/22/16 09:17; Admin Dose 10 MG; Start 05/06/16 at 09:00 Imipenem/ Cilastatin Sodium 100 ml @ 100 mls/hr Q6 IVPB Last administered on 12:29; Admin Dose 100 MLS/HR; Start 05/05/16 at 18:00 Sodium Chloride (NS) 1,000 ml @ 75 mls/hr [id number] IV Last administered on 06:19; Admin Dose 75 MLS/HR; Start 05/05/16 at 23:30 Aspirin (Aspirin) 325 mg DAILY PO Last administered on 05/22/16 09:24; Admin Dose 325 MG; Start 05/07/16 at 09:00 Eye Lubricant (Artificial Tears Oph) 2 drop QID BOTH EYES Last administered on 05/22/16 12:29; Admin Dose 2 DROP; Start 05/06/16 at 17:00 Diltiazem HCl (Cardizem) 120 mg DAILY PO Last administered on 05/22/16 09:18; Admin Dose 120 MG; Start 05/07/16 at 09:00 Trimethoprim/ Sulfamethoxazole 1 tab 1 tab SuTuTh@09 PO Last administered on 09:21; Admin Dose 1 TAB; Start 05/08/16 at 09:00 Aztreonam/Sodium Chloride (Azactam/NS) 100 ml @ 100 mls/hr Q8 IVPB Last administered on 05/22/16 05:08; Admin Dose 100 MLS/HR; Start 05/10/16 at 14:30 MARIO CARTWRIGHT May 22, 2016 12:51
[2016-05-25 09:59] LABS: LYMPHOCYTE - CD4/CD8 RATIO 0.03 (0.86-5.00)
--- NOTE | 2016-05-26 12:28 | DS ---
Date/Time of Note Date/Time of Note DATE: 05/26/16 TIME: 12:25 Discharge Summary Admission/Discharge Info Admit Date/Time May 03, 2016 at 19:51 Discharge Date/Time May 22, 2016 at 19:30 Final Diagnosis 1) fever 2) hiv positive 3) leukocytosis Hospital Course Patient with HIV comes in with fever and leukocytosis. Patient was treated with intravenous antibiotics and he slowly improved. However, despite improving clinically, patient remain leukocytopenic. Before the leukocytopenia resolved, patient stated that he has to leave the hospital and so he left against medical advice. Home Meds Active Scripts Nystatin (Nystatin) 100,000 Unit/1 Ml Oral.susp, 5 ML PO QID for 14 Days Prov:AAKASH MITCHELL 04/27/16 Levofloxacin* (Levofloxacin*) 500 Mg Tablet, 500 MG PO DAILY@06 for 30 Days, TAB Prov:AAKASH MITCHELL 04/27/16 Hydrocodone Bit-Acetaminophen (Hydrocodone Bit-APAP) 5-325MG Tablet, 1 TAB PO Q4H Y for PAIN for 30 Days, TAB Prov:AAKASH MITCHELL 04/27/16 Elvitegr/Cobicist/Emtric/Tenof (STRIBILD TABLET) 1 Each Tablet, 1 EACH PO WITH BREAKFAST for 30 Days, TAB Prov:AAKASH MITCHELL 04/27/16 Darunavir* (Prezista*) 800 Mg Tablet, 800 MG PO WITH BREAKFAST for 30 Days, TAB Prov:AAKASH MITCHELL 04/27/16 Atovaquone* (Mepron*) 750 Mg/5 Ml Oral.susp, 1500 MG PO DAILY for 30 Days Prov:AAKASH MITCHELL 04/27/16 Azithromycin* (Azithromycin*) 600 Mg Tablet, 1200 MG PO Q7D for 30 Days, TAB Prov:AAKASH MITCHELL 04/27/16 Reported Medications Cyanocobalamin* (Vitamin B-12* Inj) 1,000 Mcg/Ml Vial, 1000 MCG IM Q28D, VIAL 10/22/14 MARIO CARTWRIGHT May 26, 2016 12:27
== END 2016-05-22 19:30 | disposition left against medical advice (07) | DRG 969 ==
LOC: E/R 11:52 → PP2 19:51 → TEL 05-04 15:03 → PP2 05-16 22:55
PROVIDERS: ADMIT Internal Medicine; ATTEND Internal Medicine
PROC: 07T10ZZ Resection of Right Neck Lymphatic, Open Approach (ICD-10-PCS; principal; 2016-05-14 17:00)
DX: B20 Human immunodeficiency virus [HIV] disease (principal); A41.50 Gram-negative sepsis, unspecified; N17.9 Acute kidney failure, unspecified; D70.9 Neutropenia, unspecified; B00.1 Herpesviral vesicular dermatitis; Z91.14 Patient's other noncompliance with medication regimen; Z87.891 Personal history of nicotine dependence; R50.81 Fever presenting with conditions classified elsewhere; I48.91 Unspecified atrial fibrillation; K20.9 Esophagitis, unspecified; I10 Essential (primary) hypertension; L27.0 Generalized skin eruption due to drugs and medicaments taken internally; T37.3X5A Adverse effect of other antiprotozoal drugs, initial encounter; R59.0 Localized enlarged lymph nodes; E88.09 Other disorders of plasma-protein metabolism, not elsewhere classified; L81.4 Other melanin hyperpigmentation; E87.6 Hypokalemia
CPT/HCPCS: 70492; 71010; 71260; 74177; 78806; 80048; 80053; 80202; 81001; 81003; 82962; 83605; 83615; 84145; 84153; 84154; 85025; 86360; 87015; 87040; 87070; 87075; 87086; 87102; 87116; 87177; 87400; 87496; 87529; 87536; 88104; 88307; 93306; 96360; 96361; A9570; J0690; J0692; J0743; J1100; J1200; J1650; J1720; J1885; J2250; J2270; J2405; J2765; J3010; J3370; J3420; J3480; J7030; J7040; J7042; J7050; Q9967

== ENCOUNTER 2016-08-05 19:00 | Inpatient (IN) | payer MEDICARE, OTHER ==
[~2016-08-05] VITALS: Ht 172.7 cm; Wt 93.3 kg
[2016-08-05] MEDS ORDERED: ACETAMINOPHEN 325 MG TAB PO STA (19:20)
[2016-08-05] MEDS ORDERED: CEFEPIME 2GM/50 ML (PMX) 50 ML IVPB STA (19:20)
[2016-08-05] MEDS ORDERED: SODIUM CHLORIDE 0.9% 1L BAG IV* STA (19:20)
[2016-08-05] MEDS ORDERED: VANCOMYCIN 1 GM (PMX) 250 ML IVPB ONE (19:30)
[2016-08-05] MEDS ORDERED: FURO40TA4 PO (19:59)
[2016-08-05] MEDS ORDERED: IBUP800T25 PO (20:00)
[2016-08-05] MEDS ORDERED: FLUC100T39 PO (20:00)
[2016-08-05] MEDS ORDERED: AZIT600T PO (20:01)
[2016-08-05] MEDS ORDERED: SULF1TAB31 PO (20:02)
[2016-08-05 20:03] LABS: ADD SCAN DIFF NO
[2016-08-05 20:07] LABS: ABNORMAL IP MESSAGE 1; RED CELL DISTRIBUTION WIDTH 14.6 % (11.5-14.5)
[2016-08-05 20:14] LABS: HEMATOCRIT 41.3 % (42.0-52.0); MEAN CORPUSCULAR HEMOGLOBIN 29.4 pg (29.0-33.0); MEAN CORPUSCULAR HGB CONC 33.9 g/dl (32.0-37.0); MEAN CORPUSCULAR VOLUME 86.8 fl (82.0-101.0); MEAN PLATELET VOLUME 8.6 fl (7.4-10.4); PLATELET COUNT 179 10^3/UL (140-415); RED BLOOD COUNT 4.76 10^6/ul (4.70-6.10); WHITE BLOOD COUNT 5.3 10^3/ul (4.8-10.8)
[2016-08-05 20:23] LABS: ALANINE AMINOTRANSFERASE 41 IU/L (13-69); ALBUMIN 4.3 g/dl (3.3-4.9); ALBUMIN/GLOBULIN RATIO 1.48; ALKALINE PHOSPHATASE 90 IU/L (42-121); ANION GAP 13 (8-16); ASPARTATE AMINO TRANSFERASE 51 IU/L (15-46); BILIRUBIN,INDIRECT 0.2 mg/dl (0-1.1); BILIRUBIN,TOTAL 0.2 mg/dl (0.2-1.3); BLOOD UREA NITROGEN 11 mg/dl (7-20); CALCIUM 8.7 mg/dl (8.4-10.2); CARBON DIOXIDE 24 mmol/L (21-31); CHLORIDE 97 mmol/L (97-110); CREATININE 0.98 mg/dl (0.61-1.24); GLUCOSE 91 mg/dl (70-220); POTASSIUM 4.2 mmol/L (3.5-5.1); SODIUM 130 mmol/L (135-144); TOTAL PROTEIN 7.2 g/dl (6.1-8.1)
[2016-08-05 20:26] LABS: PT RATIO 1.1
[2016-08-05 20:27] LABS: PARTIAL THROMBOPLASTIN TIME 43.7 Sec (25.0-35.0)
[2016-08-05] MEDS ORDERED: ACETAMINOPHEN 325 MG TAB PO PRN (20:30)
[2016-08-05] MEDS ORDERED: ONDANSETRON 4 MG INJ IV PRN (20:30)
[2016-08-05 20:37] LABS: TROPONIN-I < 0.012 ng/ml (0.00-0.12)
[2016-08-05 20:39] LABS: INR 1.07; PROTIME 13.9 Sec (12.2-14.2)
--- NOTE | 2016-08-05 21:00 | RADRPT ---
PROCEDURE: XR Chest. CLINICAL INDICATION: Sepsis. TECHNIQUE: AP Portable chest. COMPARISON: 05/17/2016 FINDINGS: There is mild to moderate cardiomegaly. The lungs are clear. The osseous structures are unremarkab le. IMPRESSION: No acute findings. RPTAT: HIKT .Luke John MD, Date Time Electronically viewed and signed by .Luke John MD, on 08/05/2016 20:59 .T/
--- NOTE | 2016-08-05 21:10 | RADRPT ---
PROCEDURE: CT abdomen and pelvis without intravenous contrast. CLINICAL INDICATION: Pain. TECHNIQUE: CT of the abdomen/pelvis was performed utilizing axial images with reconstructions in s agittal and coronal planes. The administered radiation dose is CTDI 15.3 mGy, DLP 864 mGy-cm. COMPARISON: No pertinent prior examinations were submitted for comparison. FINDINGS: Visualized Chest: There is mild atelectasis within the lung bases. Some subpleural nodular opacitie s are seen in the left lower lobe and lingula. The largest of these measures up to 10 mm on image 1 7 of series 3. There is moderate cardiomegaly. There is trace pericardial effusion. Abdomen: The spleen, pancreas, and adrenal glands are unremarkable. Prior cholecystectomy is noted. The l iver is diffusely decreased in attenuation, compatible with hepatic steatosis. There is mild right hydronephrosis and proximal hydroureter secondary to a 5-6 mm calculus within th e proximal right ureter. The left kidney is without hydronephrosis. No other definite urinary calc haider are seen. There is no evidence of bowel obstruction. The appendix is normal. No intra-abdominal free air is seen. There is no evidence of intra-abdominal adenopathy or free fluid. Pelvis: There is no evidence of pelvic adenopathy or free fluid. The prostate and bladder are unremarkable. There is a small, fat-containing left inguinal hernia. Osseous structures: Lumbar spondylotic changes are present with some moderate to marked spinal canal narrowing most prominent at L4-5. IMPRESSION: Mild right-sided obstructive uropathy secondary to a 5-6 mm calculus in the proximal right ureter. Hepatic steatosis. Small, fat-containing left inguinal hernia. RPTAT: HIKT .Luke John MD, MD Date Time Electronically viewed and signed by .Luke John MD, MD on 08/05/2016 21:10 .T/
[2016-08-05 21:26] VITALS: TEMP 99.3
[2016-08-05 22:07] LABS: EOSINOPHILS # 0.1 10^3/ul (0.0-0.5); LYMPHOCYTES # 3.9 10^3/ul (0.8-2.9); MONOCYTE # 0.5 10^3/ul (0.3-0.9); NEUTROPHIL # 0.8 10^3/ul (1.6-7.5)
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
[2016-08-05] MEDS ORDERED: ONDANSETRON 4 MG INJ IV STA (23:09)
[2016-08-05] MEDS ORDERED: morphine 4 MG/ML VIAL IV STA (23:09)
[2016-08-05 23:36] LABS: ADD UMIC YES; UR BILIRUBIN (Dip) NEGATIVE (NEGATIVE); UR BLOOD (Dip) TRACE (NEGATIVE); UR CLARITY CLEAR (CLEAR); UR COLOR LT. YELLOW (YELLOW); UR GLUCOSE (Dip) NEGATIVE (NEGATIVE); UR KETONES (Dip) NEGATIVE (NEGATIVE); UR LEUKOCYTE ESTERASE (Dip) NEGATIVE (NEGATIVE); UR NITRITE (Dip) NEGATIVE (NEGATIVE); UR TOTAL PROTEIN (Dip) NEGATIVE (NEGATIVE); UR UROBILINOGEN (Dip) 0.2 E.U./dL (0.1-1.0)
[2016-08-05 23:54] LABS: URINE RBCS 0-2 /HPF (0)
[2016-08-06] VITALS (17 sets, daily range): BP systolic 70–135; BP diastolic 51–88; PULSE 74–150; RESP 17–28; Ht 172.7 cm; Wt 93.3 kg
[2016-08-06] MEDS ORDERED: ONDANSETRON 4 MG INJ IV PRN (01:00)
[2016-08-06] MEDS ORDERED: DILTIAZEM 25 MG INJ IV PRN (01:00)
[2016-08-06] MEDS: PIPER-TAZO 3.375 GM IV (PMX) 100 ML IVPB SCH ×3 (01:19→12:44)
[2016-08-06] MEDS: ACETAMINOPHEN 325 MG TAB PO PRN ×4 (01:20→13:35)
[2016-08-06] MEDS: METOPROLOL 50 MG TAB PO SCH ×2 (01:21→08:17)
[2016-08-06 06:28] LABS: ADD SCAN DIFF NO
[2016-08-06 06:34] LABS: HEMATOCRIT 42.5 % (42.0-52.0); HEMOGLOBIN 14.1 g/dl (14.0-18.0); MEAN CORPUSCULAR HEMOGLOBIN 29.5 pg (29.0-33.0); MEAN CORPUSCULAR HGB CONC 33.2 g/dl (32.0-37.0); MEAN CORPUSCULAR VOLUME 88.9 fl (82.0-101.0); MEAN PLATELET VOLUME 8.9 fl (7.4-10.4); PLATELET COUNT 144 10^3/UL (140-415); RED BLOOD COUNT 4.78 10^6/ul (4.70-6.10); RED CELL DISTRIBUTION WIDTH 14.8 % (11.5-14.5); WHITE BLOOD COUNT 2.9 10^3/ul (4.8-10.8)
[2016-08-06 07:12] LABS: CALCIUM 7.9 mg/dl (8.4-10.2); CREATININE 1.54 mg/dl (0.61-1.24)
[2016-08-06 07:53] LABS: THYROID STIMULATING HORMONE 1.68 MIU/L (0.465-4.680)
[2016-08-06] MEDS: morphine 2 MG INJ IV PRN ×2 (08:18→18:53)
[2016-08-06 10:20] LABS: EOSINOPHILS # 0.1 10^3/ul (0.0-0.5); LYMPHOCYTES # 1.3 10^3/ul (0.8-2.9); MONOCYTE # 0.1 10^3/ul (0.3-0.9); NEUTROPHIL # 1.4 10^3/ul (1.6-7.5)
[2016-08-06] MEDS ORDERED: SODIUM CHLORIDE 0.9% 1L BAG IV* STA (12:18)
[2016-08-06 12:24] LABS: ALBUMIN 3.5 g/dl (3.3-4.9); BILIRUBIN,INDIRECT 0.3 mg/dl (0-1.1); BILIRUBIN,TOTAL 0.3 mg/dl (0.2-1.3)
[2016-08-06] MEDS ORDERED: SOD CHLORIDE 0.9% 1,000 ML IV SCH (12:30)
[2016-08-06] MEDS ORDERED: VANCOMYCIN IV PER PHARMACY XX SCH (13:00)
[2016-08-06] MEDS ORDERED: MEROPENEM 1 GM/100 ML (PMX) 100 ML IVPB SCH (14:00)
[2016-08-06] MEDS: VANCOMYCIN 1.5 GM in SOD CHLORIDE 0.9% 250 ML IVPB SCH (16:00)
[2016-08-06] MEDS ORDERED: AMIODARONE 150MG/D5W BOLUS 100 ML IV ONE (18:30)
[2016-08-06] MEDS ORDERED: AMIODARONE 150MG/D5W BOLUS 100 ML ONE (18:39)
[2016-08-06] MEDS ORDERED: AMIODARONE DRIP 1 MG/MIN X 6 HRS, THEN 0.5 MG/MIN X 18 HRS THEN DC IV SCH (19:00)
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
[2016-08-06] MEDS ORDERED: LEVOFLOXACIN 750MG/D5W (PMX) 150 ML IVPB ONE ×2 (20:30→20:45)
--- NOTE | 2016-08-06 20:56 | CONS ---
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 The sensitivity result was canned on 06/23/2016. Pt took imipenem and aztreonam around that time (his strain of moraxella was sensitive to both in vitro). Subsequent blood cultures were negative. - h/o recurrent neutropenic fever, infectious process vs. immune reconstitution inflammatory response. WBC tagged scan negative from 05/12/2016 - advanced AIDS (CD4<20, viral load 166,544 copies in 04/21/2016 & repeat CD4 37 on 05/07/2016), was non-compliant with medications. Restarted on Stribild and darunavir on 04/23/2016. Genotype on 04/20/2016 showed a wild type virus without baseline mutations. Per Pt, he was taking Stribild and darunavir after last admission but stopped one week ago - h/o neutropenia s/p BMBx, no e/o infections or malignancy at this time. CMV IHC negative, CMV PCR in serum was <200, cocci and crypto negative, QTB gold negative - h/o L cervical and supraclavicular lymphadenopathy s/p excisional Bx in 04/2016 : Dr. 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 CXR showed overinflated lungs, CT showed benign appearing sub-centimeter nodule seen at the bilateral lung bases - LUE weakness and pain due to tear of rotator cuff muscles and bicep tendon anchor - h/o thrush, resolved - hyperpigmented lesions on b/l LE x several months according to Pt - h/o pruritis, probably due to atovaquone. 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 Both interacts with amiodarone. So I have not started them yet. Pt brought is own supply of both medications. I left a message at Dr. Rivero's phone. I plan to coordinate Pt's care with him. - start Bactrim three times a week for pneumocystis prophylaxis - start weekly azithromycin for MAC prophylaxis - if his ANC drops, will place him on neutropenic precautions - Pt confirmed that his son and daughter know of his HIV+ status. Pt does not want the other family members to know his HIV+ status management d/w Pt, his son and RN the critical care time I took to care for this Pt today was from 1914 to 2034 Problems: Consultation Date/Type/Reason Admit Date/Time Aug 05, 2016 at 20:09 Date of Consultation: Aug 06, 2016 Type of Consultation: ID Reason for Consultation septic shock Referring Provider: MAXIME GUZMAN of Present Illness This is a 66 yo male with AIDS, who was admitted due to fever. He was found out to have R ureteral stone. He was in A fib and was started on amiodarone. Pt was transferred to ICU because he became hypotensive. Pt had a long hospitalization in April and May 2016. He had neutropenic fever ; the etiology was thought to be due to immune reconstitution inflammatory syndrome, and moraxella bacteremia. His bone marrow biopsy did not show infiltrating infections/malignancy. Biopsy of his cervical lymph node showed polymorphic lymphoproliferative disorder (EBVLD). It was stressed that Pt continue taking anti-retroviral medications. I left [facility] before this result became available against medical advice. According to Pt, he was following up with Dr. Pradhan, and his last CD4 was 57. He does not remember the viral load. However, he stopped taking antiretroviral medications one week ago. HORTENSIA Guzman requested ID consultation on this Pt. Constitutional: febrile, poor po Eyes: no complaints ENT: no complaints Respiratory: no complaints Cardiovascular: no complaints Gastrointestinal: no complaints Genitourinary: no complaints Musculoskeletal: other (chronic LUE pain) Skin: no complaints Neurologic: no complaints Endocrine: no complaints Past Medical History Medical History: other (AIDS, tear of L rotator cuff muscles and bicep tendon anchor) Past Surgical History Past Surgical Hx: no surgical history Social History Smoking Status: Former smoker Exam/Review of Systems Vital Signs Vitals Vital Signs Date Time Temp Pulse Resp B/P Pulse Ox O2 Delivery O2 Flow Rate FiO2 08/06/16 19:00 78 22 86/64 95 Nasal Cannula 08/06/16 15:30 99.1 Intake and Output 08/05/16 08/05/16 08/06/16 15:00 23:00 07:00 Intake Total 1300 ml 600 ml Output Total 1200 ml Balance 1300 ml -600 ml Exam Constitutional: frail Psych: confusion Head: atraumatic, normocephalic Eyes: nl conjunctiva, nl lids ENMT: nl external ears & nose, nl nasal mucosa & septum Neck: supple Respiratory: clear to auscultation, normal air movement Cardiovascular: nl pulses, regular rate and rhythm Gastrointestinal: nl liver, spleen, non-tender, soft Musculoskeletal: nl extremities to inspection Extremities: edema Neurological: lethargic Skin: other (hyperpigmented lesions on b/l LE) Results Result Diagram: 08/06/16 0554 08/06/16 0554 Results 24 hrs Laboratory Tests Test 08/05/16 21:20 08/05/16 22:55 08/05/16 23:20 08/06/16 05:54 Lactic Acid Level 0.8 2.4 H Urine Color LT. YELLOW Urine Clarity CLEAR Urine pH 6.0 Urine Specific Trinity <=1.005 L Urine Ketones NEGATIVE Urine Nitrite NEGATIVE Urine Bilirubin NEGATIVE Urine Urobilinogen 0.2 E.U./dL Urine Leukocyte Esterase NEGATIVE Urine Microscopic RBC 0-2 Urine Microscopic WBC NONE SEEN Urine Hemoglobin TRACE Urine Glucose NEGATIVE Urine Total Protein NEGATIVE White Blood Count 2.9 #L Red Blood Count 4.78 Hemoglobin 14.1 Hematocrit 42.5 Mean Corpuscular Volume 88.9 Mean Corpuscular Hemoglobin 29.5 Mean Corpuscular Hemoglobin Concent 33.2 Red Cell Distribution Width 14.8 H Platelet Count 144 Mean Platelet Volume 8.9 Neutrophils % 47.0 Band Neutrophils % 1.0 Lymphocytes % 45.0 Monocytes % 2.0 Eosinophils % 5.0 Neutrophils # 1.4 L Lymphocytes # 1.3 Monocytes # 0.1 L Eosinophils # 0.1 Sodium Level 132 L Potassium Level 4.0 Chloride Level 100 Carbon Dioxide Level 21 Anion Gap 15 Blood Urea Nitrogen 16 Creatinine 1.54 H Glucose Level 100 Calcium Level 7.9 L Thyroid Stimulating Hormone (TSH) 1.680 Thyroxine (T4) 5.5 Test 08/06/16 06:00 Total Bilirubin 0.3 Direct Bilirubin 0.00 Indirect Bilirubin 0.3 Aspartate Amino Transf (AST/SGOT) 62 H Alanine Aminotransferase (ALT/SGPT) 43 Alkaline Phosphatase 65 Total Protein 6.0 #L Albumin 3.5 Medications Medications Current Medications Morphine Sulfate (morphine) 2 mg Q4H PRN IV PAIN LEVEL 4-7 Last administered on 08/06/16 18:53; Admin Dose 2 MG; Start 08/06/16 at 01:00 Ondansetron HCl (Zofran Inj) 4 mg Q4H PRN IV NAUSEA AND/OR VOMITING; Start at 01:00 Diltiazem HCl (Cardizem Iv) 10 mg Q1H PRN IV BLOOD PRESSURE SUPPORT Last administered on 08/06/16 01:20; Admin Dose 10 MG; Start 08/06/16 at 01:00 Acetaminophen 650 mg 650 mg Q4H PRN PO PAIN AND OR ELEVATED TEMP Last administered on 08/06/16 13:35; Admin Dose 650 MG; Start 08/06/16 at 01:00 Sodium Chloride 1,000 ml @ 100 mls/hr Q10H IV Last administered on 08/06/16 15:00; Admin Dose 100 MLS/HR; Start 08/06/16 at 12:30 Meropenem 100 ml @ 200 mls/hr Q12 IVPB Last administered on 08/06/16 16:15; Admin Dose 200 MLS/HR; Start 08/06/16 at 14:00 Vancomycin HCl 1.5 gm/Sodium Chloride 250 ml @ 83.333 mls/ hr Q24H IVPB Last administered on 08/06/16 16:00; Admin Dose 83.333 MLS/HR; Start 08/06/16 at 16: 00 Amiodarone HCl 100 ml @ 600 mls/hr ONCE ONCE IV ; Start 08/06/16 at 18:30; Stop 08/06/16 at 18:39 Amiodarone HCl (Cordarone 900mg/ D5W Drip) 500 ml @ 0 mls/hr Q0M IV ; Start at 19:00; Stop 08/07/16 at 18:59 JACK LAIRD M.D. Aug 06, 2016 20:27
[2016-08-06] MEDS: AZITHROMYCIN 600 MG TAB PO SCH (21:30)
[2016-08-06] MEDS ORDERED: AZITHROMYCIN 600 MG TAB PO SCH (21:30)
[2016-08-07] VITALS (27 sets, daily range): BP systolic 86–125; BP diastolic 62–87; PULSE 75–124; RESP 11–34
[2016-08-07] MEDS ORDERED: ACETAMINOPHEN 325 MG TAB PO PRN (08:00)
[2016-08-07] MEDS ORDERED: DILTIAZEM 25 MG INJ IV PRN (08:00)
[2016-08-07] MEDS ORDERED: SOD CHLORIDE 0.9% 1,000 ML IV SCH (08:00)
[2016-08-07] MEDS ORDERED: VANCOMYCIN IV PER PHARMACY XX SCH (08:00)
--- NOTE | 2016-08-07 09:41 | CONS ---
[facility] HCIS Consult Follow up SOAP Patient Name: Taiwo Coyne Unit Number: [id number] Date of : 1950 Patient Status: Admitted Inpatient Attending Doctor: Serge Walden MD Edit: JACK MELARA M.D. on 08/08/16 @ 10:31 recommendations: - pending results: blood cultures from 08/05 and 08/06, urine culture from 08/05, CD4, HIV viral load - continue empiric vancomycin, meropenem (08/05/16-), levofloxacin (08/05/16-) for septic shock - re-start Stribild (tenofovir/emtricitabine/elvitegravir/cobicistat) and darunavir 800mg - re-start Bactrim three times a week for pneumocystis prophylaxis - re-start weekly azithromycin for MAC prophylaxis - if his ANC drops, will place him on neutropenic precautions - Pt confirmed that his son and daughter know of his HIV+ status. Pt does not want the other family members to know his HIV+ status Saritha attestation: I discussed the management with HORTENSIA Guadalupe and above reflects our joint recommendations. The critical care time I took to care for this Pt on 08/07/2016 was 30 min. Date/Time of Note Date/Time of Note DATE: 08/07/16 TIME: 09:33 Consult Date/Type/Reason Admit Date/Time Aug 05, 2016 at 20:09 Initial Consult Date 08/06/16 Type of Consultation: INFECTIOUS DISEASE Ordering Provider: MAXIME MCKEON Subjective c/o chronic non-radiated LUE pain X1yr, no chest pain or difficult breathing, diarrhea X2 today, no abdominal pain Objective Vital Signs Date Time Temp Pulse Resp B/P Pulse Ox O2 Delivery O2 Flow Rate FiO2 08/07/16 08:56 105 08/07/16 07:00 23 117/84 100 Nasal Cannula 08/07/16 04:00 99.6 Intake and Output 08/06/16 08/06/16 08/07/16 15:00 23:00 07:00 Intake Total 1010.000 ml 200 ml Output Total 1050 ml 1300 ml Balance -40.000 ml -1100 ml Exam Constitutional: well developed male lying in bed in no acute distress Eyes: normal sclera ENT: wnl Respiratory: no complaints Cardiovascular: irregular rate and rhythm Gastrointestinal: soft, non-tender, non-distended and audible bowel [id number] Genitourinary: urinal at the bedside Musculoskeletal: normal extremities on inspection Skin: warm, dry and no lesions Neurologic: alert and oriented Results/Medications Result Diagram: 08/06/16 0554 08/06/16 0554 Results 24 hrs Laboratory Tests Test 08/06/16 21:30 Troponin I 0.066 08/05/16 CT abdomen and pelvis without intravenous contrast IMPRESSION: Mild right-sided obstructive uropathy secondary to a 5-6 mm calculus in the proximal right ureter. Hepatic steatosis. Small, fat-containing left inguinal hernia. Medications Current Medications Vancomycin HCl 1.5 gm/Sodium Chloride 250 ml @ 83.333 mls/ hr Q24H IVPB Last administered on 08/06/16 16:00; Admin Dose 83.333 MLS/HR; Start 08/06/16 at 16: 00 Amiodarone HCl (Cordarone 900mg/ D5W Drip) 500 ml @ 0 mls/hr Q0M IV ; Start at 19:00; Stop 08/07/16 at 18:59 Trimethoprim/ Sulfamethoxazole (Bactrim (Ds)) 1 tab MoWeFr PO ; Start 08/08/16 at 21:30 Azithromycin 1200 mg 1,200 mg Q7D PO Last administered on 08/06/16 21:30; Admin Dose 1,200 MG; Start 08/06/16 at 21:30 Levofloxacin/ Dextrose (Levaquin 500mg/ D5W 100 ml (Pmx)) 100 ml @ 100 mls/hr Q48H IVPB ; Start 08/07/16 at 20:30 Acetaminophen (Tylenol Tab) 650 mg Q4H PRN PO PAIN AND OR ELEVATED TEMP; Start 08/07/16 at 08:00 Diltiazem HCl 10 mg 10 mg Q1H PRN IV HR GREATER THAN 110; Start 08/07/16 at 08: 00 Meropenem (Merrem 1 Gm/100 ml (Pmx)) 100 ml @ 200 mls/hr Q12 IVPB ; Start 08/07 at 09:00 Morphine Sulfate (morphine) 2 mg Q4H PRN IV PAIN LEVEL 4-7; Start 08/07/16 at 08:00 Ondansetron HCl 4 mg 4 mg Q4H PRN IV NAUSEA AND/OR VOMITING; Start 08/07/16 at 08:00 Sodium Chloride (NS) 1,000 ml @ 75 mls/hr [id number] IV Last administered on 08/07t 08:52; Admin Dose 75 MLS/HR; Start 08/07/16 at 08:00 Miscellaneous Information (* Miscellaneous Pharmacy Order) PT TO TAKE HOME MEDS PREZISTA 80... 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 The sensitivity result was canned on 06/23/2016. Pt took imipenem and aztreonam around that time (his strain of moraxella was sensitive to both in vitro). Subsequent blood cultures were negative. - h/o recurrent neutropenic fever, infectious process vs. immune reconstitution inflammatory response. WBC tagged scan negative from 05/12/2016 - advanced AIDS (CD4<20, viral load 166,544 copies in 04/21/2016 & repeat CD4 37 on 05/07/2016), was non-compliant with medications. Restarted on Stribild and darunavir on 04/23/2016. Genotype on 04/20/2016 showed a wild type virus without baseline mutations. Per Pt, he was taking Stribild and darunavir after last admission but stopped one week ago - h/o neutropenia s/p BMBx, no e/o infections or malignancy at this time. CMV IHC negative, CMV PCR in serum was <200, cocci and crypto negative, QTB gold negative - h/o L cervical and supraclavicular lymphadenopathy s/p excisional Bx in 04/2016 : Dr. John at [facility] concluded that Pt had polymorphic lymphoproliferative disorder (EBVLD), the proliferation was very abnormal with a high proliferative activity, he recommended the patient receive anti retroviral therapy that should be closely monitored since there is a high incidence of evolution to an overt lymphoma - h/o cough in 03/2016. CXR showed overinflated lungs, CT showed benign appearing sub-centimeter nodule seen at the bilateral lung bases - LUE weakness and pain due to tear of rotator cuff muscles and bicep tendon anchor - h/o thrush, resolved - hyperpigmented lesions on b/l LE x several months according to Pt - h/o pruritis, probably due to atovaquone. 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 Both interacts with amiodarone. So I have not started them yet. Pt brought is own supply of both medications. I left a message at Dr. Rivero's phone. I plan to coordinate Pt's care with him. - start Bactrim three times a week for pneumocystis prophylaxis - start weekly azithromycin for MAC prophylaxis - if his ANC drops, will place him on neutropenic precautions - Pt confirmed that his son and daughter know of his HIV+ status. Pt does not want the other family members to know his HIV+ status - will check stool for C. Diff & culture Management and care discussed with patient, THOMAS Chapa and DR. Melara Problems: SERUNJOGI,GINA N Aug 07, 2016 09:41
[2016-08-07 09:50] LABS: ADD SCAN DIFF NO
[2016-08-07 09:52] LABS: HEMATOCRIT 40.7 % (42.0-52.0); HEMOGLOBIN 14.1 g/dl (14.0-18.0); MEAN CORPUSCULAR HEMOGLOBIN 29.6 pg (29.0-33.0); MEAN CORPUSCULAR HGB CONC 34.6 g/dl (32.0-37.0); MEAN CORPUSCULAR VOLUME 85.5 fl (82.0-101.0); PLATELET COUNT 126 10^3/UL (140-415); RED BLOOD COUNT 4.76 10^6/ul (4.70-6.10); RED CELL DISTRIBUTION WIDTH 14.5 % (11.5-14.5); WHITE BLOOD COUNT 3.7 10^3/ul (4.8-10.8)
[2016-08-07] MEDS: SOD CHLORIDE 0.9% 1,000 ML IV SCH ×3 (10:00→21:20)
[2016-08-07] MEDS ORDERED: LIDOCAINE 1% (MPF) 5 ML VIAL SC ONE (10:00)
[2016-08-07 10:11] LABS: ALBUMIN 3.5 g/dl (3.3-4.9); ALBUMIN/GLOBULIN RATIO 1.4; BILIRUBIN,INDIRECT 0.1 mg/dl (0-1.1); BILIRUBIN,TOTAL 0.1 mg/dl (0.2-1.3); CALCIUM 7.6 mg/dl (8.4-10.2); CREATININE 1.4 mg/dl (0.61-1.24); POTASSIUM 4.2 mmol/L (3.5-5.1)
[2016-08-07] MEDS: MEROPENEM 1 GM/100 ML (PMX) 100 ML IVPB SCH ×2 (10:22→21:15)
--- NOTE | 2016-08-07 10:43 | PN ---
DATE: 08/07/2016 SUBJECTIVE/INTERVAL HISTORY: The patient, after admission, became progressively more critical and h ad to be moved to ICU. The patient was hypertensive and was diagnosed with septic shock. The patie nt did have elevated lactic acid level of 2.4, up from 1.1 upon admission. The patient's blood pres sure was in 70s. The patient was given IV fluid bolus. The patient also remains in atrial fibrilla tion. The patient's blood pressure did get stabilized on IV fluids. The patient, however, did have acute kidney injury. Creatinine from 0.9 has gone up to 1.5. The patient remains awake, alert. D enies any chest pain or abdominal pain. No reported vomiting. OBJECTIVE: GENERAL: The patient remains awake, alert, and with no focal signs. VITAL SIGNS: Temperature 99.6, pulse 105, respirations 23, blood pressure 117/84, O2 saturation 100 % on supplemental oxygen. HEENT: Atraumatic, normocephalic. Conjunctivae and lids normal. Oropharynx clear. NECK: Supple. No mass, no thyromegaly. CHEST: Fairly clear. No use of accessory muscles. CARDIOVASCULAR: Irregular rhythm. Variable S1. No murmur, gallop, or rub. ABDOMEN: Soft, nondistended, nontender. No CVA tenderness. EXTREMITIES: Trace edema. No clubbing, cyanosis. NEUROLOGIC: The patient is awake, alert, fairly oriented with no gross focal deficit. LABORATORY DATA: Troponin 0.06, AST 62, ALT 43, alkaline phosphatase 65. WBC 2.9, hemoglobin 14.1. CT mild right-sided obstructive uropathy secondary to 5 to 6 mm calculus in the proximal right ure ter. Urine and blood cultures so far negative. IMPRESSION: 1. Septic shock, possibly due to pyelonephritis. The patient was seen by Dr. Melara and has been started on IV vancomycin as well as meropenem. The patient will also be started on Levaquin. We w ill obtain urology consultation with Dr. Kim. 2. Acute kidney injury. Continue IV fluids. Dr. Jesica Huerta has been following him from a nephrology standpoint. 3. Atrial fibrillation. The patient's heart rate remains uncontrolled. The patient will be starte d on amiodarone as per Dr. Rivero from cardiology standpoint. Dr. Melara will be discussing wit h him due to possible drug interaction due to the patient's HIV medications and amiodarone. 4. Advanced age. The patient's CD4 count back in April was less than 20, viral load 166,544. The patient has a history of being noncompliant. The patient has been resumed on Bactrim for PCP prophy laxis and azithromycin for MAC prophylaxis. As far as anticoagulation is concerned, will leave that decision up to Dr. Rivero. Plan of care discussed with the patient's daughter, Sharee, as well as with nursing staff. The payton ent remains critically ill and will be continued to be monitored in ICU. Total critical care time spent: 35 minutes. Dictated By: NAKIA CHOUDHURY/VINCE Conf#: [id number] DID#: [id number]
[2016-08-07] MEDS ORDERED: DIGOXIN 500 MCG INJ IV ONE (11:30)
--- NOTE | 2016-08-07 12:34 | CONS ---
Date/Time of Note Date/Time of Note DATE: 08/07/16 TIME: 12:28 Assessment/Plan Assessment/Plan Additional Assessment/Plan New Onset atrial fibrillation Acute Coronary syndrome Obstructive Uropathy Hepatic steatosis HIV left inguinal hernia Amiodarone not started yesterday because of concerned interaction with HIV medications Trend Troponin's, BNP Started on Digoxin Started on Metoprolol Full dose ASA Continue Antibiotics Consultation Date/Type/Reason Admit Date/Time Aug 05, 2016 at 20:09 Constitutional: febrile, poor po Eyes: no complaints ENT: no complaints Respiratory: no complaints Cardiovascular: no complaints Gastrointestinal: no complaints Genitourinary: no complaints Musculoskeletal: other (chronic LUE pain) Skin: no complaints Neurologic: no complaints Endocrine: no complaints Psychological: confusion Past Medical History Medical History: other (AIDS, tear of L rotator cuff muscles and bicep tendon anchor) Past Surgical History Past Surgical Hx: no surgical history Social History Smoking Status: Former smoker Exam/Review of Systems Vital Signs Vitals Vital Signs Date Time Temp Pulse Resp B/P Pulse Ox O2 Delivery O2 Flow Rate FiO2 08/07/16 12:15 124 08/07/16 11:00 18 86/67 99 Nasal Cannula 08/07/16 08:00 99.8 Intake and Output 08/06/16 08/06/16 08/07/16 15:00 23:00 07:00 Intake Total 1010.000 ml 200 ml Output Total 1050 ml 1300 ml Balance -40.000 ml -1100 ml Exam Constitutional: alert, oriented Head: atraumatic, normocephalic Neck: non-tender, supple Respiratory: clear to auscultation Cardiovascular: irregular rhythm Gastrointestinal: nl liver, spleen, non-tender, soft Extremities: normal pulses Results Result Diagram: 08/07/1640 08/07/16 0940 Results 24 hrs Laboratory Tests Test 08/06/16 21:30 08/07/16 09:40 Troponin I 0.066 0.223 *H White Blood Count 3.7 #L Red Blood Count 4.76 Hemoglobin 14.1 Hematocrit 40.7 L Mean Corpuscular Volume 85.5 Mean Corpuscular Hemoglobin 29.6 Mean Corpuscular Hemoglobin Concent 34.6 Red Cell Distribution Width 14.5 Platelet Count 126 L Mean Platelet Volume 9.0 Neutrophils % Lymphocytes % Monocytes % Neutrophils # Lymphocytes # Monocytes # Sodium Level 126 L Potassium Level 4.2 Chloride Level 101 Carbon Dioxide Level 18 L Anion Gap 11 Blood Urea Nitrogen 21 H Creatinine 1.40 H Glucose Level 102 Lactic Acid Level 1.9 Calcium Level 7.6 L Total Bilirubin 0.1 L Direct Bilirubin 0.00 Indirect Bilirubin 0.1 Aspartate Amino Transf (AST/SGOT) 92 H Alanine Aminotransferase (ALT/SGPT) 58 Alkaline Phosphatase 56 Total Protein 6.0 L Albumin 3.5 Globulin 2.50 Albumin/Globulin Ratio 1.40 Medications Medications Current Medications Vancomycin HCl/ Sodium Chloride (Vancocin/NS) 250 ml @ 83.333 mls/ hr Q24H IVPB Last administered on 08/06/16 16:00; Admin Dose 83.333 MLS/HR; Start at 16:00 Trimethoprim/ Sulfamethoxazole (Bactrim (Ds)) 1 tab MoWeFr PO ; Start 08/08/16 at 21:30 Azithromycin 1200 mg 1,200 mg Q7D PO Last administered on 08/06/16 21:30; Admin Dose 1,200 MG; Start 08/06/16 at 21:30 Levofloxacin/ Dextrose (Levaquin 500mg/ D5W 100 ml (Pmx)) 100 ml @ 100 mls/hr Q48H IVPB ; Start 08/07/16 at 20:30 Acetaminophen (Tylenol Tab) 650 mg Q4H PRN PO PAIN AND OR ELEVATED TEMP; Start 08/07/16 at 08:00 Diltiazem HCl 10 mg 10 mg Q1H PRN IV HR GREATER THAN 110; Start 08/07/16 at 08: 00 Meropenem (Merrem 1 Gm/100 ml (Pmx)) 100 ml @ 200 mls/hr Q12 IVPB Last administered on 08/07/16 10:22; Admin Dose 200 MLS/HR; Start 08/07/16 at 09:00 Morphine Sulfate (morphine) 2 mg Q4H PRN IV PAIN LEVEL 4-7; Start 08/07/16 at 08:00 Ondansetron HCl (Zofran Inj) 4 mg Q4H PRN IV NAUSEA AND/OR VOMITING; Start at 08:00 Darunavir (Prezista) 800 mg DAILY PO ; Start 08/07/16 at 10:00 Elvitegravir/ Cobicis/Emtricit/ Tenof 1 each 1 each DAILY PO ; Start 08/07/16 at 10:00 Sodium Chloride (NS) 1,000 ml @ 125 mls/hr Q8H IV ; Start 08/07/16 at 10:00 Digoxin (Digoxin) 0.125 mg DAILY@13 PO ; Start 08/08/16 at 13:00 IV Flush (NS 10 ml) 10 ml PRN PRN IV flush; Start 08/07/16 at 12:00 CURT FRAGA M.D. Aug 07, 2016 12:34
[2016-08-07] MEDS: ELVITEGR/COBICIST/EMTRIC/TENOF 1 EACH TABLET PO SCH (12:39)
[2016-08-07] MEDS: DARUNAVIR ETHANOLATE 800 MG TABLET PO SCH (12:39)
[2016-08-07 12:40] LABS: EOSINOPHILS # 0.2 10^3/ul (0.0-0.5); LYMPHOCYTES # 1.9 10^3/ul (0.8-2.9); MONOCYTE # 0.3 10^3/ul (0.3-0.9); NEUTROPHIL # 1.1 10^3/ul (1.6-7.5)
[2016-08-07] MEDS: ASPIRIN 325 MG TAB PO SCH (13:36)
[2016-08-07] MEDS: METOPROLOL (XL) 25 MG TAB PO SCH ×2 (13:36→21:17)
[2016-08-07] MEDS: DIGOXIN 0.125 MG TAB PO SCH (13:37)
--- NOTE | 2016-08-07 14:05 | CONS ---
DATE OF ADMISSION: 08/05/2016 DATE OF CONSULTATION: 08/06/2016 REASON FOR CONSULTATION: New onset of atrial fibrillation. HISTORY OF PRESENT ILLNESS: The patient is a 66-year-old gentleman who comes in with complaints of chest pain associated chest pain associated with palpitation. He Denies any shortness of breath, or thopnea, PND. Denies dizziness, syncope. The EKG done shows atrial fibrillation with rapid ventric ular rate. He also complained of fever of 101, but no chills or rigors, but complains of nausea, vo miting, diarrhea. PAST MEDICAL HISTORY: HIV, history of drug abuse, cocaine, history of asthma, dyslipidemia and hyper tension. PAST SURGICAL HISTORY: Significant for cholecystectomy. SOCIAL HISTORY: History of cocaine abuse in the past. No smoking or alcohol. ALLERGIES: ATOVAQUONE. CURRENT MEDICATIONS: 1. Prezista. 2. Stribild. 3. Bactrim. 4. Vancomycin. 5. Meropenem. REVIEW OF SYSTEMS: unremarkable except that mentioned in the HPI. PHYSICAL EXAMINATION: VITAL SIGNS: Temperature is 99.6, heart rate of 106, irregularly irregular, blood pressure 125/75 m mHg, breathing at 20, and saturating 100%. GENERAL: Patient awake, alert, oriented, no apparent distress. NECK: No JVD or carotid bruit. CARDIOVASCULAR: Irregularly irregular rhythm, no murmur, rub or gallop. LUNGS: Clear to auscultation. ABDOMEN: Soft. Bowel sounds are present. There is no organomegaly. EXTREMITIES: No pedal edema. Pedal pulses are felt bilaterally. DIAGNOSTIC DATA: A 12-lead EKG shows atrial fibrillation with rapid ventricular rate. Chest x-ray shows no congestion or infiltrates. LABORATORY DATA: Sodium 132, potassium 4, chloride 100, CO2 21, BUN is 16, creatinine is 1.54. TSH is 1.6. WBC 2.9, hemoglobin 14.1, hematocrit 42.5 with a platelet of 144. ASSESSMENT: A 66-year-old gentleman with: 1. New onset atrial fibrillation. 2. Renal insufficiency. 3. Neutropenia. 4. Human immunodeficiency virus. 5. Obstructive uropathy. 6. Hepatic steatosis. 7. Inguinal hernia. 8. Hypernatremia. 9. Patient is in atrial fibrillation with rapid ventricular rate. Blood pressure is controlled. 10. Heart failure is clinically compensated. PLAN: 1. Recommend amiodarone bolus on protocol. 2. Start him on digoxin. 3. Trend troponins/BMP. 4. Echocardiogram to assess for structural heart disease and to rule out for pulmonary hypertension and pericardial effusion. 5. Started on full dose aspirin. 6. Started on Digoxin 250 mg IV bolus once followed by Digoxin 125 mcg daily. 7. Continue HIV medications. 8. Continue empiric antibiotics. Dictated By: CURT FRAGA MD SR/NTS Conf#: [id number] DID#: [id number]
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
--- NOTE | 2016-08-07 14:33 | RADRPT ---
PROCEDURE: XR Chest. CLINICAL INDICATION: PICC line placement TECHNIQUE: PA and lateral chest x-ray. COMPARISON: 08/05/2016 chest radiograph. FINDINGS: Right-sided PICC line terminates in the region of the medial right subclavian vein. The lungs are clear. No pleural effusion or pneumothorax. Mild cardiomegaly. The osseous structures are unremarkable. Vascular calcifications of the aorta are present compatible with atherosclerosis. IMPRESSION: PICC line terminates in the medial aspect of the right subclavian vein, this was repositioned on the subsequent radiograph.. RPTAT: AADD .Tom Leon MD, MD Date Time Electronically viewed and signed by .Tom Leon MD, MD on 08/07/2016 14:32 .B/
[2016-08-07] MEDS: morphine 2 MG INJ IV PRN ×2 (14:37→23:16)
--- NOTE | 2016-08-07 15:06 | RADRPT ---
Echocardiogram Report Patient Name: CYNTHIA CLIFFORD Gender: Male Date: 1950 Study Date: 07-Aug-2016 Head Waitress: Ying [facility] Location: 108 Ref. Physician: FITO FRAGA Quality: Adequate Procedures: Transthoracic echocardiogram with complete 2D, M-Mode, and doppler examination. Indications: Atrial Fibrillation. 2D/M Mode Doppler Measurement Value Normal Ranges Measurement Value Normal Ranges LVIDd 2D 4.8 3.5 - 5.6 cm AV Peak Jae 1.1 m/sec LVIDs 2D 3.3 2.1 - 4.1 cm AV Peak PG 4.7 mmHg LVPWd 2D 1.3 0.6 - 1.1 cm LVOT Peak Jae 0.7 m/sec IVSd 2D 1.2 0.6 - 1.1 cm LVOT Peak PG 2.2 mmHg AoR Diam 2D 3.1 2.0 - 3.7 cm EDV 2D 105.1 cm3 ESV 2D 36.6 cm3 LA Dimen 2D 3.8 2.3 - 4.0 cm Findings Left Ventricle: Normal left ventricular systolic function. Normal left ventricular cavity size. Mild concentric left ventricular hypertrophy. Ejection fraction is visually estimated at 55 %. Abnormal Diastolic Function. Right Ventricle: Normal right ventricular size. Normal right ventricular systolic function. Left Atrium: The left atrium is normal in size. Right Atrium: The right atrium is normal in size. Mitral Valve: Mild mitral annular calcification. Trace mitral regurgitation. Aortic Valve: Aortic sclerosis without stenosis. Tricuspid Valve: Normal appearance and function of the tricuspid valve with trace physiologic regurgitation. Unable to obtain RVSP due to minimal presence of tricuspid regurgitation. Pericardium: Normal pericardium with no significant pericardial effusion. Aorta: Normal aortic root. IVC: Normal size and normal respiratory collapse consistent with normal right atrial pressure. Conclusions 1.Normal left ventricular systolic function. Normal left ventricular cavity size. Mild concentric left ventricular hypertrophy. Ejection fraction is visually estimated at 55 %. Abnormal Diastolic Function. 2.Normal right ventricular size. Normal right ventricular systolic function. 3.Mild mitral annular calcification. Trace mitral regurgitation. 4.Aortic sclerosis without stenosis. 5.Normal appearance and function of the tricuspid valve with trace physiologic regurgitation. Unable to obtain RVSP due to minimal presence of tricuspid regurgitation. 6.Normal pericardium with no significant pericardial effusion. Electronically Signed By: Fito Fraga 07-Aug-2016 15:06:08 -0700 Patient Name: CYNTHIA CLIFFORD Study Date: 07-Aug-[id number]
--- NOTE | 2016-08-07 16:10 | RADRPT ---
PROCEDURE: XR Chest. CLINICAL INDICATION: Check PICC line position. TECHNIQUE: Single frontal view. COMPARISON: Prior study done earlier the same day. FINDINGS: There is a right arm PICC line with the tip in the right subclavian vein medially. The lungs are cl ear. The heart is enlarged. There is no pleural effusion. There is no pneumothorax. IMPRESSION: 1. Right arm PICC line tip in the right subclavian vein medially. 2. Cardiomegaly. RPTAT: QQ .Danish Whelan MD, MD Date Time Electronically viewed and signed by .Danish Whelan MD, on 08/07/2016 16:10 .R/
--- NOTE | 2016-08-07 16:10 | RADRPT ---
PROCEDURE: XR Chest. CLINICAL INDICATION: Check PICC line position. TECHNIQUE: Single frontal view. COMPARISON: Prior study done earlier the same day. FINDINGS: There is a right arm PICC line with the tip in the right subclavian vein. The lungs are clear. The heart is mildly enlarged. There is no pleural effusion. There is no pneumothorax. IMPRESSION: 1. Right arm PICC line tip in the right subclavian vein. 2. Mild cardiomegaly. 3. Otherwise unremarkable chest radiograph. RPTAT: QQ .Danish Whelan MD, MD Date Time Electronically viewed and signed by .Dainsh Whelan MD, MD on 08/07/2016 16:10 .R/
--- NOTE | 2016-08-07 16:11 | RADRPT ---
PROCEDURE: XR Chest. CLINICAL INDICATION: Check PICC line position. TECHNIQUE: Single frontal view. COMPARISON: Prior study done earlier the same day. FINDINGS: There is a right arm PICC line with the tip in the upper superior vena cava. The lungs are clear. The heart is mildly enlarged. There is no pleural effusion. There is no pneumothorax. IMPRESSION: 1. Right arm PICC line tip in the upper superior vena cava. 2. Mild cardiomegaly. 3. Otherwise normal chest radiograph. RPTAT: QQ .Danish Whelan MD, MD Date Time Electronically viewed and signed by .Danish Whelan MD, MD on 08/07/2016 16:11 .R/
[2016-08-07] MEDS: VANCOMYCIN 1.5 GM in SOD CHLORIDE 0.9% 250 ML IVPB SCH (16:35)
[2016-08-07] MEDS ORDERED: LEVOFLOXACIN 500MG/D5W (PMX) 100 ML IVPB SCH ×2 (20:30)
--- NOTE | 2016-08-07 20:42 | CONS ---
Date/Time of Note Date/Time of Note DATE: 08/07/16 TIME: 20:38 Assessment/Plan Assessment/Plan Additional Assessment/Plan 1. Acute kidney injury, multifactorial secondary to prerenal azotemia, decreased perfusion in the setting of atrial fibrillation, possibly secondary to mild right hydronephrosis secondary to nephrolithiasis. 2. Mild right hydronephrosis secondary to right proximal ureteral kidney stone. 3. Hyponatremia secondary to hypovolemic hyponatremia. 4. History of human immunodeficiency virus, does not know last CD4 count. 5. Atrial fibrillation with rapid ventricular rate. 6. Hypertension. PLAN: on Amiodarone gtt for rate control Na dropped to 126- NS at 125 cc/hr Cr slightly improved Urology has been consulted on case, Slightly Acidotic due to sepsis and NS IV fluids Consultation Date/Type/Reason Admit Date/Time Aug 05, 2016 at 20:09 Initial Consult Date 08/06/16 Type of Consultation: NEPHROLOGY Referring Provider: MAXIME MCKEON 24 HR Interval Summary Free Text/Dictation transferred to ICU for sepsis, Atrial fibrillati with RVR, s/p Urology consult Exam/Review of Systems Vital Signs Vitals Vital Signs Date Time Temp Pulse Resp B/P Pulse Ox O2 Delivery O2 Flow Rate FiO2 08/07/16 18:00 90 20 93/62 94 Nasal Cannula 08/07/16 12:00 100.2 Intake and Output 08/06/16 08/06/16 08/07/16 15:00 23:00 07:00 Intake Total 1010.000 ml 200 ml Output Total 1050 ml 1300 ml Balance -40.000 ml -1100 ml Exam GENERAL: Awake, alert, in moderate distress. HEENT: Pupils equal, round, reactive to light and accommodation. Extraocular muscles are intact. NECK: Supple, no JVD, no lymphadenopathy. LUNGS: Clear to auscultation. Decreased breath sounds at both lung bases. HEART: S1, S2, with regular rhythm, no murmur. ABDOMEN: Soft, nontender, nondistended. Bowel sounds are present. EXTREMITIES: No clubbing, cyanosis, edema. NEUROLOGICAL: Nonfocal, intact. PSYCHIATRIC: Appropriate affect and mood Results Result Diagram: 08/07/16 0940 08/07/16 0940 Results 24 hrs Laboratory Tests Test 08/06/16 21:30 08/07/16 09:40 08/07/16 17:35 Troponin I 0.066 0.223 *H 0.105 White Blood Count 3.7 #L Red Blood Count 4.76 Hemoglobin 14.1 Hematocrit 40.7 L Mean Corpuscular Volume 85.5 Mean Corpuscular Hemoglobin 29.6 Mean Corpuscular Hemoglobin Concent 34.6 Red Cell Distribution Width 14.5 Platelet Count 126 L Mean Platelet Volume 9.0 Neutrophils % 30.0 L Band Neutrophils % 6.0 H Lymphocytes % 50.0 Monocytes % 8.0 Eosinophils % 6.0 Neutrophils # 1.1 L Lymphocytes # 1.9 Monocytes # 0.3 Eosinophils # 0.2 Sodium Level 126 L Potassium Level 4.2 Chloride Level 101 Carbon Dioxide Level 18 L Anion Gap 11 Blood Urea Nitrogen 21 H Creatinine 1.40 H Glucose Level 102 Lactic Acid Level 1.9 Calcium Level 7.6 L Total Bilirubin 0.1 L Direct Bilirubin 0.00 Indirect Bilirubin 0.1 Aspartate Amino Transf (AST/SGOT) 92 H Alanine Aminotransferase (ALT/SGPT) 58 Alkaline Phosphatase 56 B-Type Natriuretic Peptide 1940 H Total Protein 6.0 L Albumin 3.5 Globulin 2.50 Albumin/Globulin Ratio 1.40 Thyroid Stimulating Hormone (TSH) 1.830 Medications Medications Current Medications Vancomycin HCl/ Sodium Chloride (Vancocin/NS) 250 ml @ 83.333 mls/ hr Q24H IVPB Last administered on 08/07/16 16:35; Admin Dose 83.333 MLS/HR; Start at 16:00 Trimethoprim/ Sulfamethoxazole (Bactrim (Ds)) 1 tab MoWeFr PO ; Start 08/08/16 at 21:30 Azithromycin 1200 mg 1,200 mg Q7D PO Last administered on 08/06/16 21:30; Admin Dose 1,200 MG; Start 08/06/16 at 21:30 Levofloxacin/ Dextrose (Levaquin 500mg/ D5W 100 ml (Pmx)) 100 ml @ 100 mls/hr Q48H IVPB ; Start 08/07/16 at 20:30 Acetaminophen (Tylenol Tab) 650 mg Q4H PRN PO PAIN AND OR ELEVATED TEMP; Start 08/07/16 at 08:00 Diltiazem HCl 10 mg 10 mg Q1H PRN IV HR GREATER THAN 110; Start 08/07/16 at 08: 00 Meropenem (Merrem 1 Gm/100 ml (Pmx)) 100 ml @ 200 mls/hr Q12 IVPB Last administered on 08/07/16 10:22; Admin Dose 200 MLS/HR; Start 08/07/16 at 09:00 Morphine Sulfate (morphine) 2 mg Q4H PRN IV PAIN LEVEL 4-7 Last administered on 08/07/16 14:37; Admin Dose 2 MG; Start 08/07/16 at 08:00 Ondansetron HCl (Zofran Inj) 4 mg Q4H PRN IV NAUSEA AND/OR VOMITING; Start at 08:00 Darunavir (Prezista) 800 mg DAILY PO Last administered on 08/07/16 12:39; Admin Dose 800 MG; Start 08/07/16 at 10:00 Elvitegravir/ Cobicis/Emtricit/ Tenof 1 each 1 each DAILY PO Last administered on 08/07/16 12:39; Admin Dose 1 EACH; Start 08/07/16 at 10:00 Sodium Chloride (NS) 1,000 ml @ 125 mls/hr Q8H IV ; Start 08/07/16 at 10:00 Digoxin (Digoxin) 0.125 mg DAILY@13 PO Last administered on 08/07/16 13:37; Admin Dose 0.125 MG; Start 08/07/16 at 13:00 IV Flush (NS 10 ml) 10 ml PRN PRN IV flush; Start 08/07/16 at 12:00 Aspirin (Aspirin) 325 mg DAILY PO Last administered on 08/07/16 13:36; Admin Dose 325 MG; Start 08/07/16 at 13:00 Metoprolol Succinate (Toprol Xl) 25 mg BID PO Last administered on 08/07/16 13 :36; Admin Dose 25 MG; Start 08/07/16 at 13:00 Miscellaneous Information (*Rx Drug Level Order Reminder*) VANCOMYCIN TROUGH AT 1500 ONCE ONCE XX ; Start 08/08/16 at 15:00; Stop 08/08/16 at 15:01 SWATI VALIENTE MD Aug 07, 2016 20:42
[2016-08-07] MEDS ORDERED: TAMSULOSIN (SR) 0.4 MG CAP PO SCH (21:00)
[2016-08-08] VITALS (26 sets, daily range): BP systolic 73–121; BP diastolic 35–90; PULSE 65–97; RESP 13–21
[2016-08-08 06:45] LABS: ADD SCAN DIFF NO
[2016-08-08 06:56] LABS: ABNORMAL IP MESSAGE 1; HEMATOCRIT 37.5 % (42.0-52.0); HEMOGLOBIN 12.8 g/dl (14.0-18.0); MEAN CORPUSCULAR HEMOGLOBIN 29.7 pg (29.0-33.0); MEAN CORPUSCULAR HGB CONC 34.1 g/dl (32.0-37.0); MEAN PLATELET VOLUME 9.4 fl (7.4-10.4); PLATELET COUNT 101 10^3/UL (140-415); RED BLOOD COUNT 4.31 10^6/ul (4.70-6.10); RED CELL DISTRIBUTION WIDTH 14.5 % (11.5-14.5); WHITE BLOOD COUNT 2.7 10^3/ul (4.8-10.8)
[2016-08-08] MEDS: morphine 2 MG INJ IV PRN ×2 (07:08→20:09)
[2016-08-08 07:28] LABS: CALCIUM 6.7 mg/dl (8.4-10.2); CREATININE 0.91 mg/dl (0.61-1.24); MAGNESIUM 1.6 mg/dl (1.7-2.5); PHOSPHORUS 2.3 mg/dl (2.5-4.9); POTASSIUM 3.5 mmol/L (3.5-5.1)
[2016-08-08] MEDS: DARUNAVIR ETHANOLATE 800 MG TABLET PO SCH (08:40)
[2016-08-08] MEDS: METOPROLOL (XL) 25 MG TAB PO SCH ×2 (08:40→21:32)
[2016-08-08] MEDS: MEROPENEM 1 GM/100 ML (PMX) 100 ML IVPB SCH ×3 (08:40→21:32)
[2016-08-08] MEDS: ASPIRIN 325 MG TAB PO SCH (08:40)
[2016-08-08] MEDS: ELVITEGR/COBICIST/EMTRIC/TENOF 1 EACH TABLET PO SCH (08:40)
--- NOTE | 2016-08-08 08:40 | RADRPT ---
PROCEDURE: XR Abdomen 1 View. CLINICAL INDICATION: Abdominal pain, right ureteral stone. TECHNIQUE: AP abdomen x-ray. COMPARISON: CT August 05, 2016 FINDINGS: Air and stool are seen scattered within the colon. No dilated loops of small bowel are observed. No organomegaly is identified. The proximal right ureteral stone seen on prior CT is not well visualiz ed on the current x-ray. Cholecystectomy clips are seen in the right upper quadrant. Degenerative changes are seen in the hips and spine. Vascular calcifications are seen in both thighs. IMPRESSION: Nonspecific bowel gas pattern. Right ureteral stone seen on prior CT is not well visualized on the current x-ray. If further characterization of the abdomen is needed repeat CT should be considered. RPTAT: AA .Akira Iyer MD, Date Time Electronically viewed and signed by .Akira Iyer MD, on 08/08/2016 08:40 .P/
[2016-08-08 10:45] LABS: EOSINOPHILS # 0.3 10^3/ul (0.0-0.5); LYMPHOCYTES # 1.4 10^3/ul (0.8-2.9); MONOCYTE # 0.1 10^3/ul (0.3-0.9); NEUTROPHIL # 0.7 10^3/ul (1.6-7.5)
--- NOTE | 2016-08-08 10:48 | CONS ---
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 The sensitivity result was canned on 06/23/2016. Pt took imipenem and aztreonam around that time (his strain of moraxella was sensitive to both in vitro). Subsequent blood cultures were negative. - h/o recurrent neutropenic fever, infectious process vs. immune reconstitution inflammatory response. WBC tagged scan negative from 05/12/2016 - advanced AIDS (CD4<20, viral load 166,544 copies in 04/21/2016 & repeat CD4 37 on 05/07/2016), was non-compliant with medications. Restarted on Stribild and darunavir on 04/23/2016. Genotype on 04/20/2016 showed a wild type virus without baseline mutations. Per Pt, he was taking Stribild and darunavir after last admission but stopped one week prior to this admission. Pt's back on both meds. - h/o neutropenia s/p BMBx, no e/o infections or malignancy at this time. CMV IHC negative, CMV PCR in serum was <200, cocci and crypto negative, QTB gold negative - h/o L cervical and supraclavicular lymphadenopathy s/p excisional Bx in 04/2016 : Dr. 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 He recommended the patient receive anti retroviral therapy that should be closely monitored since there is a high incidence of evolution to an overt lymphoma. This was discussed with Pt - h/o cough in 03/2016. CXR showed overinflated lungs, CT showed benign appearing sub-centimeter nodule seen at the bilateral lung bases - LUE weakness and pain due to tear of rotator cuff muscles and bicep tendon anchor (shown on MRI) - h/o thrush, resolved - hyperpigmented lesions on b/l LE x several months according to Pt - h/o pruritis, probably due to atovaquone. 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 Pt does not want the other family members to know his HIV+ status management d/w Pt and his RN the critical care time I took to care for this Pt today was from 1000 to 1040 Problems: Consultation Date/Type/Reason Admit Date/Time Aug 05, 2016 at 20:09 Initial Consult Date 08/06/16 Type of Consultation: ID Referring Provider: MAXIME MCKEON 24 HR Interval Summary Constitutional: febrile, other (a little more appetite) Detailed Summary Eyes: no complaints ENT: no complaints Respiratory: no complaints Cardiovascular: no complaints Gastrointestinal: no complaints Genitourinary: other (FC) Musculoskeletal: bone/joint pain (LUE and L shoulder) Skin: no complaints Neurologic: other (weakness of L hand and LUE (chronic)) Lymphatic: no complaints Exam/Review of Systems Vital Signs Vitals Vital Signs Date Time Temp Pulse Resp B/P Pulse Ox O2 Delivery O2 Flow Rate FiO2 08/08/16 08:00 75 08/08/16 08:00 98.6 16 94/71 100 Room Air Intake and Output 08/07/16 08/07/16 08/08/16 15:00 23:00 07:00 Intake Total 1150 ml 854.166 ml 1560 ml Output Total 675 ml 1200 ml 1500 ml Balance 475 ml -345.834 ml 60 ml Exam Constitutional: frail Psych: nl mood/affect, no complaints Head: atraumatic, normocephalic Eyes: nl conjunctiva, nl lids ENMT: mucosa pink and moist, nl external ears & nose, nl nasal mucosa & septum Neck: supple Respiratory: clear to auscultation, normal air movement Cardiovascular: nl pulses, regular rate and rhythm Gastrointestinal: non-tender, soft Musculoskeletal: other (inability to abduct his LUE) Neurological: focal weakness (L hand) Skin: nl turgor Lymph: nl lymph nodes Results Result Diagram: 08/08/16 0500 08/08/16 0500 Results 24 hrs Laboratory Tests Test 08/07/16 17:35 08/08/16 05:00 Troponin I 0.105 White Blood Count 2.7 #L Red Blood Count 4.31 L Hemoglobin 12.8 L Hematocrit 37.5 L Mean Corpuscular Volume 87.0 Mean Corpuscular Hemoglobin 29.7 Mean Corpuscular Hemoglobin Concent 34.1 Red Cell Distribution Width 14.5 Platelet Count 101 L Mean Platelet Volume 9.4 Neutrophils % Lymphocytes % Monocytes % Neutrophils # Lymphocytes # Monocytes # Sodium Level 131 L Potassium Level 3.5 Chloride Level 108 Carbon Dioxide Level 20 L Anion Gap 7 L Blood Urea Nitrogen 16 Creatinine 0.91 Glucose Level 92 Calcium Level 6.7 L Phosphorus Level 2.3 L Magnesium Level 1.6 L Medications Medications Current Medications Vancomycin HCl/ Sodium Chloride (Vancocin/NS) 250 ml @ 83.333 mls/ hr Q24H IVPB Last administered on 08/07/16 16:35; Admin Dose 83.333 MLS/HR; Start at 16:00 Trimethoprim/ Sulfamethoxazole (Bactrim (Ds)) 1 tab MoWeFr PO ; Start 08/08/16 at 21:30 Azithromycin 1200 mg 1,200 mg Q7D PO Last administered on 08/06/16 21:30; Admin Dose 1,200 MG; Start 08/06/16 at 21:30 Levofloxacin/ Dextrose (Levaquin 500mg/ D5W 100 ml (Pmx)) 100 ml @ 100 mls/hr Q48H IVPB Last administered on 08/07/16 21:07; Admin Dose 100 MLS/HR; Start at 20:30 Acetaminophen (Tylenol Tab) 650 mg Q4H PRN PO PAIN AND OR ELEVATED TEMP; Start 08/07/16 at 08:00 Diltiazem HCl 10 mg 10 mg Q1H PRN IV HR GREATER THAN 110; Start 08/07/16 at 08: 00 Meropenem (Merrem 1 Gm/100 ml (Pmx)) 100 ml @ 200 mls/hr Q12 IVPB Last administered on 08/08/16 08:40; Admin Dose 200 MLS/HR; Start 08/07/16 at 09:00 Morphine Sulfate (morphine) 2 mg Q4H PRN IV PAIN LEVEL 4-7 Last administered on 08/08/16 07:08; Admin Dose 2 MG; Start 08/07/16 at 08:00 Ondansetron HCl (Zofran Inj) 4 mg Q4H PRN IV NAUSEA AND/OR VOMITING; Start at 08:00 Darunavir (Prezista) 800 mg DAILY PO Last administered on 08/08/16 08:40; Admin Dose 800 MG; Start 08/07/16 at 10:00 Elvitegravir/ Cobicis/Emtricit/ Tenof 1 each 1 each DAILY PO Last administered on 08/08/16 08:40; Admin Dose 1 EACH; Start 08/07/16 at 10:00 Sodium Chloride (NS) 1,000 ml @ 125 mls/hr Q8H IV Last administered on 21:20; Admin Dose 125 MLS/HR; Start 08/07/16 at 10:00 Digoxin (Digoxin) 0.125 mg DAILY@13 PO Last administered on 08/07/16 13:37; Admin Dose 0.125 MG; Start 08/07/16 at 13:00 IV Flush (NS 10 ml) 10 ml PRN PRN IV flush; Start 08/07/16 at 12:00 Aspirin (Aspirin) 325 mg DAILY PO Last administered on 08/08/16 08:40; Admin Dose 325 MG; Start 08/07/16 at 13:00 Metoprolol Succinate (Toprol Xl) 25 mg BID PO Last administered on 08/08/16 08 :40; Admin Dose 25 MG; Start 08/07/16 at 13:00 Miscellaneous Information (*Rx Drug Level Order Reminder*) VANCOMYCIN TROUGH AT 1500 ONCE ONCE XX ; Start 08/08/16 at 15:00; Stop 08/08/16 at 15:01 JACK LAIRD M.D. Aug 08, 2016 10:45
[2016-08-08] MEDS: SOD CHLORIDE 0.9% 1,000 ML IV SCH (11:12)
[2016-08-08] MEDS: DIGOXIN 0.125 MG TAB PO SCH (13:28)
[2016-08-08 13:44] LABS: LYMPHOCYTE - % CD4 (HELPER) 1 % (30-61); LYMPHOCYTE - %CD8 (SUPPRESSOR) 55 % (12-42); LYMPHOCYTE - ABSOLUTE CD4 <20 cells/uL (490-1740); LYMPHOCYTE - ABSOLUTE CD8 879 cells/uL (180-1170); LYMPHOCYTE - CD4/CD8 RATIO 0.01 (0.86-5.00)
--- NOTE | 2016-08-08 13:48 | RADRPT ---
PROCEDURE: Ultrasound guidance for placement of needle in right upper extremity vein. CLINICAL INDICATION: Venous access. TECHNIQUE: Limited sonography of the right upper extremity was performed. Ultrasound images were recorded and stored in the patient's medical record. COMPARISON: None. FINDINGS: The ultrasound images demonstrate a patent right upper extremity vein. The PICC line was inserted b y the PICC line nurse. IMPRESSION: 1. Ultrasound guidance for a needle placement in a right upper extremity vein. 2. The visualized right upper extremity vein is patent. RPTAT: QQ .Danish Whelan MD, MD Date Time Electronically viewed and signed by .Danish Whelan MD, MD on 08/08/2016 13:48 .R/
[2016-08-08] MEDS: VANCOMYCIN 1.25 GM in SOD CHLORIDE 0.9% 250 ML IVPB SCH (14:00)
--- NOTE | 2016-08-08 14:03 | CONS ---
Date/Time of Note Date/Time of Note DATE: 08/08/16 TIME: 13:55 Assessment/Plan Assessment/Plan Chief Complaint/Hosp Course IMP: 1.AF/AFL-rate controlled 2.HIV 3.REnal insuff 4. Leukopenia 5. Obstructive uropathy. 6. Hepatic steatosis. 7. Inguinal hernia. 8. Hyponatremia. 9. Positive troponin-now trended negative/NL EF by echo this admit Recc: -Tele -Continue BB -Continue digoxin -Continue asa -Continue abx's and f/u cx data -Start systemic anticoagulation for AF -Follow volume status closely Problems: Consultation Date/Type/Reason Admit Date/Time Aug 05, 2016 at 20:09 Initial Consult Date 08/06/16 Type of Consultation: Cardiology Reason for Consultation AF/positive troponin Referring Provider: MAXIME MCKEON Exam/Review of Systems Vital Signs Vitals Vital Signs Date Time Temp Pulse Resp B/P Pulse Ox O2 Delivery O2 Flow Rate FiO2 08/08/16 12:00 74 08/08/16 08:00 98.6 16 94/71 100 Room Air Intake and Output 08/07/16 08/07/16 08/08/16 15:00 23:00 07:00 Intake Total 1150 ml 854.166 ml 1560 ml Output Total 675 ml 1200 ml 1500 ml Balance 475 ml -345.834 ml 60 ml Exam Review of Systems: CONSTITUTIONAL: No fevers, chills. PULMONARY: No sob CARDIOVASCULAR: No chest pain/palpitations GASTROINTESTINAL: No nausea/vomiting. GENITOURINARY: No hematuria/dysuria. MUSCULOSKELETAL: No myagias/arthalgias. PSYCHIATRIC: The patient denies depression. NEUROLOGIC: No weakness Constitutional: other (sleeping, easily arousable) Psych: no complaints Head: normocephalic ENMT: mucosa pink and moist Neck: jvd (9 cm water), supple Respiratory: diminished breath sounds Cardiovascular: regular rate and rhythm Gastrointestinal: non-tender, soft Extremities: edema (none) Neurological: other (jose focal deficits) Results Result Diagram: 08/08/16 0500 08/08/16 0500 Results 24 hrs Laboratory Tests Test 08/07/16 17:35 08/08/16 05:00 Troponin I 0.105 White Blood Count 2.7 #L Red Blood Count 4.31 L Hemoglobin 12.8 L Hematocrit 37.5 L Mean Corpuscular Volume 87.0 Mean Corpuscular Hemoglobin 29.7 Mean Corpuscular Hemoglobin Concent 34.1 Red Cell Distribution Width 14.5 Platelet Count 101 L Mean Platelet Volume 9.4 Neutrophils % 25.0 L Band Neutrophils % 9.0 H Lymphocytes % 53.0 H Monocytes % 2.0 Eosinophils % 10.0 H Basophils % 1.0 Neutrophils # 0.7 L Lymphocytes # 1.4 Monocytes # 0.1 L Eosinophils # 0.3 Basophils # 0.0 Sodium Level 131 L Potassium Level 3.5 Chloride Level 108 Carbon Dioxide Level 20 L Anion Gap 7 L Blood Urea Nitrogen 16 Creatinine 0.91 Glucose Level 92 Calcium Level 6.7 L Phosphorus Level 2.3 L Magnesium Level 1.6 L Medications Medications Current Medications Trimethoprim/ Sulfamethoxazole (Bactrim (Ds)) 1 tab MoWeFr PO ; Start 08/08/16 at 21:30 Azithromycin (Zithromax) 1,200 mg Q7D PO Last administered on 08/06/16 21:30; Admin Dose 1,200 MG; Start 08/06/16 at 21:30 Acetaminophen (Tylenol Tab) 650 mg Q4H PRN PO PAIN AND OR ELEVATED TEMP; Start 08/07/16 at 08:00 Diltiazem HCl (Cardizem Iv) 10 mg Q1H PRN IV HR GREATER THAN 110; Start at 08:00 Morphine Sulfate (morphine) 2 mg Q4H PRN IV PAIN LEVEL 4-7 Last administered on 08/08/16 07:08; Admin Dose 2 MG; Start 08/07/16 at 08:00 Ondansetron HCl (Zofran Inj) 4 mg Q4H PRN IV NAUSEA AND/OR VOMITING; Start at 08:00 Darunavir (Prezista) 800 mg DAILY PO Last administered on 08/08/16 08:40; Admin Dose 800 MG; Start 08/07/16 at 10:00 Elvitegravir/ Cobicis/Emtricit/ Tenof 1 each 1 each DAILY PO Last administered on 08/08/16 08:40; Admin Dose 1 EACH; Start 08/07/16 at 10:00 Sodium Chloride (NS) 1,000 ml @ 125 mls/hr Q8H IV Last administered on 11:12; Admin Dose 125 MLS/HR; Start 08/07/16 at 10:00 Digoxin (Digoxin) 0.125 mg DAILY@13 PO Last administered on 08/08/16 13:28; Admin Dose 0.125 MG; Start 08/07/16 at 13:00 IV Flush (NS 10 ml) 10 ml PRN PRN IV flush; Start 08/07/16 at 12:00 Aspirin (Aspirin) 325 mg DAILY PO Last administered on 08/08/16 08:40; Admin Dose 325 MG; Start 08/07/16 at 13:00 Metoprolol Succinate 25 mg 25 mg BID PO Last administered on 08/08/16 08:40; Admin Dose 25 MG; Start 08/07/16 at 13:00 Levofloxacin/ Dextrose 100 ml @ 100 mls/hr Q24H IVPB ; Start 08/08/16 at 21:00 Meropenem 100 ml @ 200 mls/hr Q8 IVPB Last administered on 08/08/16 13:28; Admin Dose 200 MLS/HR; Start 08/08/16 at 14:00 Vancomycin HCl/ Sodium Chloride (Vancocin/NS) 250 ml @ 83.333 mls/ hr Q12H IVPB ; Start 08/08/16 at 12:30 DO JORDAN Aug 08, 2016 14:03
[2016-08-08] MEDS ORDERED: MAGNESIUM SULFATE 2 GM/50 ML 50 ML IVPB ONE (14:30)
--- NOTE | 2016-08-08 14:42 | PN ---
DATE: 08/08/2016 SUBJECTIVE: Follow up on 66-year-old gentleman with septic shock and new onset of atrial fibrillati on at uncontrolled rate and AIDS. The patient is currently is awake, alert, complains of generalize d weakness. The patient with atrial fibrillation with periods of tachycardia and labile blood press ure. The patient had low grade fever yesterday. No fever reported today. The patient denies any n ausea and vomiting. OBJECTIVE VITAL SIGNS: Temperature is 98.6, pulse is 75, blood pressure 94/71, respiratory rate 16, oxygen sa turation 100% on room air. HEENT: Head is atraumatic, normocephalic. Pupils equal, round, reactive to light and accommodation . Oral mucosa is pink and moist. NECK: Supple, no cervical lymphadenopathy, no thyromegaly. CHEST: Lungs sounds clear. CARDIOVASCULAR: Irregularly irregular rhythm. Variable S1. No murmurs noted. ABDOMEN: Protuberant, soft, nondistended, nontender, bowel sounds present. EXTREMITIES: Trace edema. No clubbing, no cyanosis. NEUROLOGIC: The patient is awake, alert and oriented x3. LABORATORY DATA: Today CBC: White blood cells 2.7, hemoglobin 12.8, hematocrit 37.5, platelets 101 . Chemistry: Sodium is 131, potassium 3.5, chloride 108, carbon dioxide 20, anion gap 7, BUN is 16 , creatinine 0.91, glucose 92, calcium 6.7, phosphorus 2.3, magnesium 1.6. ASSESSMENT AND PLAN: 1. Septic shock. Unclear etiology, Dr. Narayanan's group following in infectious disease consultation . Patient is currently on broad spectrum antibiotics. Continue to follow up on final cultures. 2. New onset of atrial fibrillation. Dr. Rivero is following in cardiology consultation. The jv wahl is currently on metoprolol, digoxin and aspirin. Unfortunately, amiodarone cannot be started due to interaction with antiretroviral therapy. 3. AIDS. According to the patient, was to stop taking Stribild and darunavir 1 week prior to admis teodora to the hospital. The patient is restarted on antiviral therapy. 4. Acute kidney injury, resolved. Continue to monitor BUN and creatinine. 5. Right upper ureteral stone with mild hydronephrosis. Dr. Kim is following in urology consul tation. Continue Flomax. PLAN: Continue ICU care. Further recommendations based on clinical course. Plan of care discussed with Dr. Luna. Dictated By: AAKASH MITCHELL HANDLE ASSEMBLER for NAKIA LUNA MD SR/NTS Conf#: [id number] DID#: [id number]
--- NOTE | 2016-08-08 14:57 | PN ---
DATE: 08/08/2016 SUBJECTIVE: The patient does have ureteral stone and however, the patient denies having any pain a nd he denies having any difficulty urinating. The stone was seen on the CT scan at the upper right ureter with some hydro. The patient did have a KUB and that did not show the stone and that could b e for multiple reasons: 1. The stone may be radiolucent. 2. The stone could be overlapping over the sacroiliac joint area or also: 3. Obscured by the bowel contents. OBJECTIVE FINDINGS: VITAL SIGNS: Temperature is 98.6, pulse 75, respirations 16, blood pressure 94/71. ABDOMEN: Soft. There is no tenderness at the present. LABORATORY DATA: The CBC shows a white count of 2.7, hemoglobin 12.8, hematocrit 37.5. The BUN is 16, creatinine 0.91, sodium 131, potassium 3.5, chloride 108, CO2 20. Urine culture and blood cultu res have all been negative so far. IMPRESSION: Right upper ureteral stone that is not seen on the plain film today and was seen on the CT scan. PLAN: To continue to monitor his pain and his blood count and renal function and strain his urine a nd if he does not pass the stone and we still cannot see the stone at some time before he is dischar ged when we could repeat the CT scan and see the location of the stone and then decide whether to in tervene or not. Dictated By: MAN CUTLER/VINCE Conf#: [id number] DID#: [id number]
[2016-08-08] MEDS: 1/2 NS + KCL 20 MEQ 1,000 ML IV SCH (16:00)
[2016-08-08] MEDS ORDERED: POTASSIUM PHOSPHATE 15 MM in SOD CHLORIDE 0.9% 250 ML IVPB ONE (17:00)
--- NOTE | 2016-08-08 17:35 | CONS ---
Date/Time of Note Date/Time of Note DATE: 08/08/16 TIME: 17:34 Assessment/Plan Assessment/Plan Additional Assessment/Plan 1. Acute kidney injury, multifactorial secondary to prerenal azotemia, decreased perfusion in the setting of atrial fibrillation, possibly secondary to mild right hydronephrosis secondary to nephrolithiasis. 2. Mild right hydronephrosis secondary to right proximal ureteral kidney stone. 3. Hyponatremia secondary to hypovolemic hyponatremia. 4. History of human immunodeficiency virus, does not know last CD4 count. 5. Atrial fibrillation with rapid ventricular rate. 6. Hypertension. PLAN: on Amiodarone gtt for rate control Na imrpoving, change IVF to 1/2 NS with KCL mag sulfate 2 gram IV x1 , K phosphate 15 mmOL IV x 1 dose today Cr slightly improved Urology has been consulted on case, will follow up Consultation Date/Type/Reason Admit Date/Time Aug 05, 2016 at 20:09 Initial Consult Date 08/06/16 Type of Consultation: Cardiology Referring Provider: MAXIME MCKEON Exam/Review of Systems Vital Signs Vitals Vital Signs Date Time Temp Pulse Resp B/P Pulse Ox O2 Delivery O2 Flow Rate FiO2 08/08/16 16:00 71 08/08/16 16:00 98.0 13 104/80 100 Room Air Intake and Output 08/07/16 08/07/16 08/08/16 15:00 23:00 07:00 Intake Total 1150 ml 854.166 ml 1560 ml Output Total 675 ml 1200 ml 1500 ml Balance 475 ml -345.834 ml 60 ml Results Result Diagram: 08/08/16 0500 08/08/16 0500 Results 24 hrs Laboratory Tests Test 08/07/16 17:35 08/08/16 05:00 Troponin I 0.105 White Blood Count 2.7 #L Red Blood Count 4.31 L Hemoglobin 12.8 L Hematocrit 37.5 L Mean Corpuscular Volume 87.0 Mean Corpuscular Hemoglobin 29.7 Mean Corpuscular Hemoglobin Concent 34.1 Red Cell Distribution Width 14.5 Platelet Count 101 L Mean Platelet Volume 9.4 Neutrophils % 25.0 L Band Neutrophils % 9.0 H Lymphocytes % 53.0 H Monocytes % 2.0 Eosinophils % 10.0 H Basophils % 1.0 Neutrophils # 0.7 L Lymphocytes # 1.4 Monocytes # 0.1 L Eosinophils # 0.3 Basophils # 0.0 Sodium Level 131 L Potassium Level 3.5 Chloride Level 108 Carbon Dioxide Level 20 L Anion Gap 7 L Blood Urea Nitrogen 16 Creatinine 0.91 Glucose Level 92 Calcium Level 6.7 L Phosphorus Level 2.3 L Magnesium Level 1.6 L Medications Medications Current Medications Trimethoprim/ Sulfamethoxazole (Bactrim (Ds)) 1 tab MoWeFr PO ; Start 08/08/16 at 21:30 Azithromycin (Zithromax) 1,200 mg Q7D PO Last administered on 08/06/16 21:30; Admin Dose 1,200 MG; Start 08/06/16 at 21:30 Acetaminophen (Tylenol Tab) 650 mg Q4H PRN PO PAIN AND OR ELEVATED TEMP; Start 08/07/16 at 08:00 Diltiazem HCl (Cardizem Iv) 10 mg Q1H PRN IV HR GREATER THAN 110; Start at 08:00 Morphine Sulfate (morphine) 2 mg Q4H PRN IV PAIN LEVEL 4-7 Last administered on 08/08/16 07:08; Admin Dose 2 MG; Start 08/07/16 at 08:00 Ondansetron HCl (Zofran Inj) 4 mg Q4H PRN IV NAUSEA AND/OR VOMITING; Start at 08:00 Darunavir (Prezista) 800 mg DAILY PO Last administered on 08/08/16 08:40; Admin Dose 800 MG; Start 08/07/16 at 10:00 Elvitegravir/ Cobicis/Emtricit/ Tenof (Stribild Tablet) 1 each DAILY PO Last administered on 08/08/16 08:40; Admin Dose 1 EACH; Start 08/07/16 at 10:00 Digoxin (Digoxin) 0.125 mg DAILY@13 PO Last administered on 08/08/16 13:28; Admin Dose 0.125 MG; Start 08/07/16 at 13:00 IV Flush (NS 10 ml) 10 ml PRN PRN IV flush; Start 08/07/16 at 12:00 Metoprolol Succinate 25 mg 25 mg BID PO Last administered on 08/08/16 08:40; Admin Dose 25 MG; Start 08/07/16 at 13:00 Levofloxacin/ Dextrose 100 ml @ 100 mls/hr Q24H IVPB ; Start 08/08/16 at 21:00 Meropenem 100 ml @ 200 mls/hr Q8 IVPB Last administered on 08/08/16 13:28; Admin Dose 200 MLS/HR; Start 08/08/16 at 14:00 Vancomycin HCl/ Sodium Chloride (Vancocin/NS) 250 ml @ 83.333 mls/ hr Q12H IVPB Last administered on 08/08/16 14:00; Admin Dose 83.333 MLS/HR; Start at 12:30 Enoxaparin Sodium (Lovenox) 95 mg Q12 SC ; Start 08/08/16 at 21:00 Aspirin 81 mg 81 mg DAILY PO ; Start 08/09/16 at 09:00 Potassium Chloride/Sodium Chloride 1,000 ml @ 70 mls/hr [id number] IV Last administered on 08/08/16 16:00; Admin Dose 70 MLS/HR; Start 08/08/16 at 15:30 Potassium Phosphate/Sodium Chloride (K Phos (Mm)/NS) 255 ml @ 63.75 mls/ hr ONCE ONCE IVPB ; Start 08/08/16 at 17:00; Stop 08/08/16 at 20:59 Miscellaneous Information (*Rx Drug Level Order Reminder*) 1 ONCE ONCE XX ; Start 08/09/16 at 11:30; Stop 08/09/16 at 11:31 SWATI VALIENTE MD Aug 08, 2016 17:35
[2016-08-08] MEDS ORDERED: LEVOFLOXACIN 500MG/D5W (PMX) 100 ML IVPB SCH (21:00)
[2016-08-08] MEDS ORDERED: TRIMETHOPRIM/SULFAMETHOX (DS) TAB PO SCH (21:30)
[2016-08-08] MEDS: TRIMETHOPRIM/SULFAMETHOX (DS) TAB PO SCH (21:34)
[2016-08-08] MEDS: ENOXAPARIN 100 MG/ML SYG SC SCH (21:34)
[2016-08-09] VITALS (20 sets, daily range): BP systolic 87–123; BP diastolic 60–100; PULSE 57–94; RESP 12–25
[2016-08-09] MEDS: VANCOMYCIN 1.25 GM in SOD CHLORIDE 0.9% 250 ML IVPB SCH (00:23)
[2016-08-09] MEDS: MEROPENEM 1 GM/100 ML (PMX) 100 ML IVPB SCH ×3 (06:24→21:52)
[2016-08-09 06:29] LABS: ADD SCAN DIFF NO
[2016-08-09 06:37] LABS: ABNORMAL IP MESSAGE 1; HEMATOCRIT 40.3 % (42.0-52.0); HEMOGLOBIN 13.6 g/dl (14.0-18.0); MEAN CORPUSCULAR HEMOGLOBIN 29.2 pg (29.0-33.0); MEAN CORPUSCULAR HGB CONC 33.7 g/dl (32.0-37.0); MEAN CORPUSCULAR VOLUME 86.5 fl (82.0-101.0); MEAN PLATELET VOLUME 9.2 fl (7.4-10.4); PLATELET COUNT 100 10^3/UL (140-415); RED BLOOD COUNT 4.66 10^6/ul (4.70-6.10); RED CELL DISTRIBUTION WIDTH 14.7 % (11.5-14.5); WHITE BLOOD COUNT 3.7 10^3/ul (4.8-10.8)
[2016-08-09 07:07] LABS: CALCIUM 7.9 mg/dl (8.4-10.2); CREATININE 0.79 mg/dl (0.61-1.24)
[2016-08-09] MEDS: ASPIRIN 81 MG TAB PO SCH (09:22)
[2016-08-09] MEDS: METOPROLOL (XL) 25 MG TAB PO SCH ×2 (09:23→21:00)
[2016-08-09] MEDS: ENOXAPARIN 100 MG/ML SYG SC SCH ×2 (09:28→21:54)
--- NOTE | 2016-08-09 09:39 | CONS ---
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 The sensitivity result was canned on 06/23/2016. Pt took imipenem and aztreonam around that time (his strain of moraxella was sensitive to both in vitro). Subsequent blood cultures were negative. - h/o recurrent neutropenic fever, infectious process vs. immune reconstitution inflammatory response. 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 Restarted on Stribild and darunavir on 04/23/2016. Genotype on 04/20/2016 showed a wild type virus without baseline mutations. Per Pt, he was taking Stribild and darunavir after last admission but stopped one week prior to this admission. Pt's back on both meds. - h/o neutropenia s/p BMBx, no e/o infections or malignancy at this time. CMV IHC negative, CMV PCR in serum was <200, cocci and crypto negative, QTB gold negative - h/o L cervical and supraclavicular lymphadenopathy s/p excisional Bx in 04/2016 : Dr. 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 He recommended the patient receive anti retroviral therapy that should be closely monitored since there is a high incidence of evolution to an overt lymphoma. This was discussed with Pt - h/o cough in 03/2016. CXR showed overinflated lungs, CT showed benign appearing sub-centimeter nodule seen at the bilateral lung bases - LUE weakness and pain due to tear of rotator cuff muscles and bicep tendon anchor (shown on MRI) - h/o thrush, resolved - hyperpigmented lesions on b/l LE x several months according to Pt - h/o pruritis, probably due to atovaquone. Resolved after it was changed to Bactrim - Hx prostatitis - PSA wnl - h/o possible HSV labialis - JILL, resolving recommendations: - pending results: HIV viral load - d/c empiric vancomycin and levofloxacin (08/05/16-) - continue meropenem empirically (08/05/16-); it may be de-escalated soon - continue Stribild (tenofovir/emtricitabine/elvitegravir/cobicistat) and darunavir 800mg - continue Bactrim three times a week for pneumocystis prophylaxis - continue weekly azithromycin for MAC prophylaxis - if his ANC remains <1,000, will place him on neutropenic precautions ( yesterday it was 700) - Pt confirmed that his son and daughter know of his HIV+ status. Pt does not want the other family members to know his HIV+ status management d/w Pt and his RN the critical care time I took to care for this Pt today was from 0850 to 0930 Problems: Consultation Date/Type/Reason Admit Date/Time Aug 05, 2016 at 20:09 Initial Consult Date 08/06/16 Type of Consultation: Cardiology Referring Provider: MAXIME MCKEON 24 HR Interval Summary Constitutional: no complaints Detailed Summary Eyes: no complaints ENT: no complaints Respiratory: no complaints Cardiovascular: no complaints Gastrointestinal: no complaints Genitourinary: no complaints Musculoskeletal: bone/joint pain (LUE (chronic)), restricted range of motion ( LUE (no change)) Skin: skin lesions (macules on b/l LE, no change, painless) Neurologic: focal-weakness (LUE) Exam/Review of Systems Vital Signs Vitals Vital Signs Date Time Temp Pulse Resp B/P Pulse Ox O2 Delivery O2 Flow Rate FiO2 08/09/16 06:00 77 17 101/60 98 Room Air 08/09/16 04:00 98.3 Intake and Output 08/08/16 08/08/16 08/09/16 15:00 23:00 07:00 Intake Total 1168.783 ml 1457.467 ml 823.332 ml Output Total 800 ml 1450 ml 1640 ml Balance 368.783 ml 7.467 ml -816.668 ml Exam Constitutional: alert, oriented, well developed Psych: no complaints Head: atraumatic, normocephalic Eyes: nl conjunctiva, nl lids ENMT: nl external ears & nose, nl nasal mucosa & septum Neck: non-tender, supple Respiratory: clear to auscultation, normal air movement Cardiovascular: nl pulses, regular rate and rhythm Gastrointestinal: non-tender, soft Genitourinary - Male: No CVA tenderness Musculoskeletal: nl extremities to inspection Extremities: edema 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, focal weakness (LUE and L hand), nl mental status, nl speech Skin: rash or lesions (macules on b/l LE) Results Result Diagram: 08/09/16 0530 08/09/16 0530 Results 24 hrs Laboratory Tests Test 08/09/16 05:30 White Blood Count 3.7 #L Red Blood Count 4.66 L Hemoglobin 13.6 L Hematocrit 40.3 L Mean Corpuscular Volume 86.5 Mean Corpuscular Hemoglobin 29.2 Mean Corpuscular Hemoglobin Concent 33.7 Red Cell Distribution Width 14.7 H Platelet Count 100 L Mean Platelet Volume 9.2 Neutrophils % Lymphocytes % Monocytes % Neutrophils # Lymphocytes # Monocytes # Sodium Level 134 L Potassium Level 4.0 Chloride Level 107 Carbon Dioxide Level 21 Anion Gap 10 Blood Urea Nitrogen 12 Creatinine 0.79 Glucose Level 97 Calcium Level 7.9 L Medications Medications Current Medications Trimethoprim/ Sulfamethoxazole (Bactrim (Ds)) 1 tab MoWeFr PO Last administered on 08/08/16 21:34; Admin Dose 1 TAB; Start 08/08/16 at 21:30 Azithromycin (Zithromax) 1,200 mg Q7D PO Last administered on 08/06/16 21:30; Admin Dose 1,200 MG; Start 08/06/16 at 21:30 Acetaminophen (Tylenol Tab) 650 mg Q4H PRN PO PAIN AND OR ELEVATED TEMP; Start 08/07/16 at 08:00 Diltiazem HCl (Cardizem Iv) 10 mg Q1H PRN IV HR GREATER THAN 110; Start at 08:00 Morphine Sulfate (morphine) 2 mg Q4H PRN IV PAIN LEVEL 4-7 Last administered on 08/08/16 20:09; Admin Dose 2 MG; Start 08/07/16 at 08:00 Ondansetron HCl (Zofran Inj) 4 mg Q4H PRN IV NAUSEA AND/OR VOMITING; Start at 08:00 Darunavir (Prezista) 800 mg DAILY PO Last administered on 08/08/16 08:40; Admin Dose 800 MG; Start 08/07/16 at 10:00 Elvitegravir/ Cobicis/Emtricit/ Tenof (Stribild Tablet) 1 each DAILY PO Last administered on 08/08/16 08:40; Admin Dose 1 EACH; Start 08/07/16 at 10:00 Digoxin (Digoxin) 0.125 mg DAILY@13 PO Last administered on 08/08/16 13:28; Admin Dose 0.125 MG; Start 08/07/16 at 13:00 IV Flush (NS 10 ml) 10 ml PRN PRN IV flush; Start 08/07/16 at 12:00 Metoprolol Succinate 25 mg 25 mg BID PO Last administered on 08/09/16 09:23; Admin Dose 25 MG; Start 08/07/16 at 13:00 Levofloxacin/ Dextrose 100 ml @ 100 mls/hr Q24H IVPB Last administered on 08/08 21:33; Admin Dose 100 MLS/HR; Start 08/08/16 at 21:00 Meropenem 100 ml @ 200 mls/hr Q8 IVPB Last administered on 08/09/16 06:24; Admin Dose 200 MLS/HR; Start 08/08/16 at 14:00 Vancomycin HCl/ Sodium Chloride (Vancocin/NS) 250 ml @ 83.333 mls/ hr Q12H IVPB Last administered on 08/09/16 00:23; Admin Dose 83.333 MLS/HR; Start at 12:30 Enoxaparin Sodium (Lovenox) 95 mg Q12 SC Last administered on 08/09/16 09:28; Admin Dose 95 MG; Start 08/08/16 at 21:00 Aspirin 81 mg 81 mg DAILY PO Last administered on 08/09/16 09:22; Admin Dose 81 MG; Start 08/09/16 at 09:00 Potassium Chloride/Sodium Chloride (1/2 NS + KCl 20 Meq) 1,000 ml @ 70 mls/hr [id number] IV Last administered on 08/08/16 16:00; Admin Dose 70 MLS/HR; Start at 15:30 Miscellaneous Information (*Rx Drug Level Order Reminder*) 1 ONCE ONCE XX ; Start 08/09/16 at 11:30; Stop 08/09/16 at 11:31 JACK LAIRD M.D. Aug 09, 2016 09:39
[2016-08-09] MEDS: 1/2 NS + KCL 20 MEQ 1,000 ML IV SCH ×2 (09:58→21:52)
[2016-08-09] MEDS: morphine 2 MG INJ IV PRN ×2 (10:01→19:09)
[2016-08-09] MEDS: DARUNAVIR ETHANOLATE 800 MG TABLET PO SCH (10:02)
[2016-08-09] MEDS: ELVITEGR/COBICIST/EMTRIC/TENOF 1 EACH TABLET PO SCH (10:02)
[2016-08-09 10:38] LABS: BURR CELLS 1+; EOSINOPHILS # 0.6 10^3/ul (0.0-0.5); LYMPHOCYTES # 2.2 10^3/ul (0.8-2.9); MONOCYTE # 0.2 10^3/ul (0.3-0.9); NEUTROPHIL # 0.5 10^3/ul (1.6-7.5); SPHEROCYTES OCCASIONAL
--- NOTE | 2016-08-09 10:45 | CONS ---
Date/Time of Note Date/Time of Note DATE: 08/09/16 TIME: 10:40 Assessment/Plan Assessment/Plan Additional Assessment/Plan 1.AF/AFL-rate controlled - con't current Rx, better rate now 2.HIV - ID team follows 3. ARF - Cr stable, good urine output. 4. Leukopenia - ID follows, with HIV 5. Obstructive uropathy - stable. 6. Hepatic steatosis. 7. Inguinal hernia- surgical f//up 8. Hyponatremia. 9. Positive troponin-now trended negative/NL EF by echo this admit Consultation Date/Type/Reason Admit Date/Time Aug 05, 2016 at 20:09 Initial Consult Date 08/06/16 Type of Consultation: Cardiology Referring Provider: MAXIME MCKEON 24 HR Interval Summary Free Text/Dictation NO acute, still in a. fl/a. fib - rate better controlled. ROS: No fever, no chills, no nausea, no vomiting, no diarrhea/constipation No recent weight changes No chest pain, no PND, no orthopnea No dizziness, blurred vision No thirst, no heat or cold intolerance Exam/Review of Systems Vital Signs Vitals Vital Signs Date Time Temp Pulse Resp B/P Pulse Ox O2 Delivery O2 Flow Rate FiO2 08/09/16 10:00 70 15 114/94 100 Room Air 08/09/16 08:00 98.6 Intake and Output 08/08/16 08/08/16 08/09/16 15:00 23:00 07:00 Intake Total 1168.783 ml 1457.467 ml 823.332 ml Output Total 800 ml 1450 ml 1640 ml Balance 368.783 ml 7.467 ml -816.668 ml Exam General: WN/WD/NAD, AOx 3 HEENT: Unicetric/atraumatic/EOMI (follow commands) NECK: JVD elevated, no thyromegaly Lymph: no lymphadenopathy HEART: Ir Irregular with no S3, II/ systolic murmur at apex LUNGS: Coarse sounds ABD: soft, NT, ND, +BS : Intact Neuro: non focal SKIN: chronic changes EXT: trace edema Results Result Diagram: 08/09/16 0530 08/09/16 0530 Results 24 hrs Laboratory Tests Test 08/09/16 05:30 White Blood Count 3.7 #L Red Blood Count 4.66 L Hemoglobin 13.6 L Hematocrit 40.3 L Mean Corpuscular Volume 86.5 Mean Corpuscular Hemoglobin 29.2 Mean Corpuscular Hemoglobin Concent 33.7 Red Cell Distribution Width 14.7 H Platelet Count 100 L Mean Platelet Volume 9.2 Neutrophils % 13.0 L Lymphocytes % 60.0 H Monocytes % 6.0 Eosinophils % 17.0 H Nucleated Red Blood Cells % 1.0 H Neutrophils # 0.5 L Lymphocytes # 2.2 Monocytes # 0.2 L Eosinophils # 0.6 H Differential Comment MANUAL DIFF Large Platelets OCCASIONAL Spherocytes OCCASIONAL Sodium Level 134 L Potassium Level 4.0 Chloride Level 107 Carbon Dioxide Level 21 Anion Gap 10 Blood Urea Nitrogen 12 Creatinine 0.79 Glucose Level 97 Calcium Level 7.9 L Medications Medications Current Medications Trimethoprim/ Sulfamethoxazole (Bactrim (Ds)) 1 tab MoWeFr PO Last administered on 08/08/16 21:34; Admin Dose 1 TAB; Start 08/08/16 at 21:30 Azithromycin (Zithromax) 1,200 mg Q7D PO Last administered on 08/06/16 21:30; Admin Dose 1,200 MG; Start 08/06/16 at 21:30 Acetaminophen (Tylenol Tab) 650 mg Q4H PRN PO PAIN AND OR ELEVATED TEMP; Start 08/07/16 at 08:00 Diltiazem HCl (Cardizem Iv) 10 mg Q1H PRN IV HR GREATER THAN 110; Start at 08:00 Morphine Sulfate (morphine) 2 mg Q4H PRN IV PAIN LEVEL 4-7 Last administered on 08/09/16 10:01; Admin Dose 2 MG; Start 08/07/16 at 08:00 Ondansetron HCl (Zofran Inj) 4 mg Q4H PRN IV NAUSEA AND/OR VOMITING; Start at 08:00 Darunavir (Prezista) 800 mg DAILY PO Last administered on 08/09/16 10:02; Admin Dose 800 MG; Start 08/07/16 at 10:00 Elvitegravir/ Cobicis/Emtricit/ Tenof (Stribild Tablet) 1 each DAILY PO Last administered on 08/09/16 10:02; Admin Dose 1 EACH; Start 08/07/16 at 10:00 Digoxin (Digoxin) 0.125 mg DAILY@13 PO Last administered on 08/08/16 13:28; Admin Dose 0.125 MG; Start 08/07/16 at 13:00 IV Flush (NS 10 ml) 10 ml PRN PRN IV flush; Start 08/07/16 at 12:00 Metoprolol Succinate 25 mg 25 mg BID PO Last administered on 08/09/16 09:23; Admin Dose 25 MG; Start 08/07/16 at 13:00 Meropenem (Merrem 1 Gm/100 ml (Pmx)) 100 ml @ 200 mls/hr Q8 IVPB Last administered on 08/09/16 06:24; Admin Dose 200 MLS/HR; Start 08/08/16 at 14:00 Enoxaparin Sodium (Lovenox) 95 mg Q12 SC Last administered on 08/09/16 09:28; Admin Dose 95 MG; Start 08/08/16 at 21:00 Aspirin 81 mg 81 mg DAILY PO Last administered on 08/09/16 09:22; Admin Dose 81 MG; Start 08/09/16 at 09:00 Potassium Chloride/Sodium Chloride (1/2 NS + KCl 20 Meq) 1,000 ml @ 70 mls/hr [id number] IV Last administered on 08/09/16 09:58; Admin Dose 70 MLS/HR; Start at 15:30 SALMA PUCKETT MD Aug 09, 2016 10:45
--- NOTE | 2016-08-09 11:24 | PN ---
DATE: 08/09/2016 SUBJECTIVE: Abdominal pain. The patient does have a right upper ureteral stone; however, the patie nt states today that he has no pain, that he is voiding well and he has no dysuria and no pain with urination. No nausea, no vomiting. OBJECTIVE: VITAL SIGNS: His temperature is 98.3, pulse 77, respirations 17, blood pressure 101/60. ABDOMEN: Soft. LABORATORY DATA: CBC shows a white count of 3.7, hemoglobin 13.6, hematocrit 40.3. BUN is 12, crea tinine 0.79, sodium 134, potassium 4.0, chloride 107, CO2 of 21. The urine culture and the blood cu ltures are all negative. IMAGING: The KUB done today again does not show the stone in the ureter, which basically means that the stone is radiolucent and/or obscured by the bowel contents or overlapping the bone area. RECOMMENDATIONS: The recommendation as the patient is stable and the cultures are negative, I trie d to put him on Flomax yesterday to help with the passage of the stone. However, the pharmacist erik led me and told me there is some drug interaction with the medication that he is on for his HIV. In particular is that I think it was for the one darunavir, or the other one the Stribild, though I di d not give the tamsulosin. Recommendation at the present is to continue monitoring him, strain the urine, pain medication as needed. As his renal function is still the same if the stone was obstruct ing, one would expect that his BUN and creatinine will go up a little, and so far they have not. So we will hope that he could pass the stone on his own and we will continue to strain the urine. Dictated By: MAN CUTLER/VINCE Conf#: [id number] DID#: [id number]
--- NOTE | 2016-08-09 12:27 | RADRPT ---
PROCEDURE: XR Abdomen 1 View. CLINICAL INDICATION: Right flank pain, right upper ureteral stone. TECHNIQUE: AP abdomen x-ray. COMPARISON: CT August 05, 2016 FINDINGS: Gas is seen scattered within the colon. No dilated loops of small bowel are observed. No organomega ly is identified. A questionable 8 mm rounded calcification is seen just to the right of the L4 vert ebral body. This may reflect the right ureteral stone seen on prior CT. Stone appears to have move d distally when compared with prior exam. Cholecystectomy clips are seen in the right upper quadran t. Degenerative changes are seen in the hips and spine. IMPRESSION: Questionable 8 mm rounded calcification seen just to the right of the L4 vertebral body. This may r eflect a ureteral stone seen on prior CT. Stone appears more distally when compared with prior exam . Nonspecific bowel gas pattern. If further characterization of the abdomen is needed repeat CT should be considered. RPTAT: AA .Akira Iyer MD, Date Time Electronically viewed and signed by .Akira Iyer MD, on 08/09/2016 12:27 .P/
--- NOTE | 2016-08-09 14:10 | PN ---
Date/Time of Note Date/Time of Note DATE: 08/09/16 TIME: 14:00 Assessment/Plan VTE Prophylaxis VTE Prophylaxis Intervention: SCD's Lines/Catheters IV [facility]ter Type (from [email or web address] PICC Line Central line still needed: Yes Urinary Cath still in place: No Assessment/Plan Chief Complaint/Hosp Course Patient remains afebrile, atrial fibrillation at controlled rate, adequate blood pressure, continue to monitor patient on telemetry floor. ASSESSMENT AND PLAN: 1. Septic shock, resolving. Dr. Bustillo is following in infectious disease consultation. Patient is currently on broad spectrum antibiotics. Continue to follow up on final cultures. 2. New onset of atrial fibrillation. Dr. Encinas is following in cardiology consultation. The patient is currently on metoprolol, digoxin and aspirin. Unfortunately, amiodarone cannot be started due to interaction with antiretroviral therapy. 3. AIDS. The patient is restarted on antiviral therapy. 4. Acute kidney injury, resolved. Continue to monitor BUN and creatinine. 5. Right upper ureteral stone with mild hydronephrosis. Dr. Kim is following in urology consultation. 6. Noncompliance with HIV medication. Further recommendations based on clinical course. Plan of care discussed with Dr. Walden. Problems: Exam/Review of Systems Vital Signs Vitals Vital Signs Date Time Temp Pulse Resp B/P Pulse Ox O2 Delivery O2 Flow Rate FiO2 08/09/16 12:00 73 08/09/16 12:00 99.0 16 103/68 97 Room Air Intake and Output 08/08/16 08/08/16 08/09/16 15:00 23:00 07:00 Intake Total 1168.783 ml 1457.467 ml 823.332 ml Output Total 800 ml 1450 ml 1640 ml Balance 368.783 ml 7.467 ml -816.668 ml Exam Constitutional: alert, oriented Head: normocephalic Neck: supple Respiratory: normal air movement Cardiovascular: irregular rhythm Gastrointestinal: non-tender, soft Extremities: normal pulses Neurological: nl mental status Results Result Diagram: 08/09/16 0530 08/09/16 0530 Results 24 hrs Laboratory Tests Test 08/09/16 05:30 White Blood Count 3.7 #L Red Blood Count 4.66 L Hemoglobin 13.6 L Hematocrit 40.3 L Mean Corpuscular Volume 86.5 Mean Corpuscular Hemoglobin 29.2 Mean Corpuscular Hemoglobin Concent 33.7 Red Cell Distribution Width 14.7 H Platelet Count 100 L Mean Platelet Volume 9.2 Neutrophils % 13.0 L Lymphocytes % 60.0 H Monocytes % 6.0 Eosinophils % 17.0 H Nucleated Red Blood Cells % 1.0 H Neutrophils # 0.5 L Lymphocytes # 2.2 Monocytes # 0.2 L Eosinophils # 0.6 H Differential Comment MANUAL DIFF Large Platelets OCCASIONAL Spherocytes OCCASIONAL Sodium Level 134 L Potassium Level 4.0 Chloride Level 107 Carbon Dioxide Level 21 Anion Gap 10 Blood Urea Nitrogen 12 Creatinine 0.79 Glucose Level 97 Calcium Level 7.9 L Medications Medications Current Medications Trimethoprim/ Sulfamethoxazole (Bactrim (Ds)) 1 tab MoWeFr PO Last administered on 08/08/16 21:34; Admin Dose 1 TAB; Start 08/08/16 at 21:30 Azithromycin (Zithromax) 1,200 mg Q7D PO Last administered on 08/06/16 21:30; Admin Dose 1,200 MG; Start 08/06/16 at 21:30 Acetaminophen (Tylenol Tab) 650 mg Q4H PRN PO PAIN AND OR ELEVATED TEMP; Start 08/07/16 at 08:00 Diltiazem HCl (Cardizem Iv) 10 mg Q1H PRN IV HR GREATER THAN 110; Start at 08:00 Morphine Sulfate (morphine) 2 mg Q4H PRN IV PAIN LEVEL 4-7 Last administered on 08/09/16 10:01; Admin Dose 2 MG; Start 08/07/16 at 08:00 Ondansetron HCl (Zofran Inj) 4 mg Q4H PRN IV NAUSEA AND/OR VOMITING; Start at 08:00 Darunavir (Prezista) 800 mg DAILY PO Last administered on 08/09/16 10:02; Admin Dose 800 MG; Start 08/07/16 at 10:00 Elvitegravir/ Cobicis/Emtricit/ Tenof (Stribild Tablet) 1 each DAILY PO Last administered on 08/09/16 10:02; Admin Dose 1 EACH; Start 08/07/16 at 10:00 Digoxin (Digoxin) 0.125 mg DAILY@13 PO Last administered on 08/08/16 13:28; Admin Dose 0.125 MG; Start 08/07/16 at 13:00 IV Flush (NS 10 ml) 10 ml PRN PRN IV flush; Start 08/07/16 at 12:00 Metoprolol Succinate 25 mg 25 mg BID PO Last administered on 08/09/16 09:23; Admin Dose 25 MG; Start 08/07/16 at 13:00 Meropenem (Merrem 1 Gm/100 ml (Pmx)) 100 ml @ 200 mls/hr Q8 IVPB Last administered on 08/09/16 06:24; Admin Dose 200 MLS/HR; Start 08/08/16 at 14:00 Enoxaparin Sodium (Lovenox) 95 mg Q12 SC Last administered on 08/09/16 09:28; Admin Dose 95 MG; Start 08/08/16 at 21:00 Aspirin 81 mg 81 mg DAILY PO Last administered on 08/09/16 09:22; Admin Dose 81 MG; Start 08/09/16 at 09:00 Potassium Chloride/Sodium Chloride (1/2 NS + KCl 20 Meq) 1,000 ml @ 70 mls/hr [id number] IV Last administered on 08/09/16 09:58; Admin Dose 70 MLS/HR; Start at 15:30 AAKASH MITCHELL Aug 09, 2016 14:10
[2016-08-09] MEDS: DIGOXIN 0.125 MG TAB PO SCH (15:18)
--- NOTE | 2016-08-09 19:20 | CONS ---
Date/Time of Note Date/Time of Note DATE: 08/09/16 TIME: :17 Assessment/Plan Assessment/Plan Additional Assessment/Plan 1. Acute kidney injury, multifactorial secondary to prerenal azotemia, decreased perfusion in the setting of atrial fibrillation, possibly secondary to mild right hydronephrosis secondary to nephrolithiasis. 2. Mild right hydronephrosis secondary to right proximal ureteral kidney stone. 3. Hyponatremia secondary to hypovolemic hyponatremia. 4. History of human immunodeficiency virus, does not know last CD4 count. 5. Atrial fibrillation with rapid ventricular rate. 6. Hypertension. PLAN: Na imrpoving, changed IVF to 1/2 NS with KCL , Today Na normal Cr normal today will follow up Consultation Date/Type/Reason Admit Date/Time Aug 05, 2016 at 20:09 Initial Consult Date 08/06/16 Type of Consultation: NEPHROLOGY Referring Provider: MAXIME MCKEON 24 HR Interval Summary Free Text/Dictation no acute eventss, HR controlled, BP still low Exam/Review of Systems Vital Signs Vitals Vital Signs Date Time Temp Pulse Resp B/P Pulse Ox O2 Delivery O2 Flow Rate FiO2 08/09/16 18:00 64 15 107/87 100 Room Air 08/09/16 16:00 99.3 Intake and Output 08/08/16 08/08/16 08/09/16 15:00 23:00 07:00 Intake Total 1168.783 ml 1457.467 ml 823.332 ml Output Total 800 ml 1450 ml 1640 ml Balance 368.783 ml 7.467 ml -816.668 ml Results Result Diagram: 08/09/16 0530 08/09/16 0530 Results 24 hrs Laboratory Tests Test 08/09/16 05:30 White Blood Count 3.7 #L Red Blood Count 4.66 L Hemoglobin 13.6 L Hematocrit 40.3 L Mean Corpuscular Volume 86.5 Mean Corpuscular Hemoglobin 29.2 Mean Corpuscular Hemoglobin Concent 33.7 Red Cell Distribution Width 14.7 H Platelet Count 100 L Mean Platelet Volume 9.2 Neutrophils % 13.0 L Lymphocytes % 60.0 H Monocytes % 6.0 Eosinophils % 17.0 H Nucleated Red Blood Cells % 1.0 H Neutrophils # 0.5 L Lymphocytes # 2.2 Monocytes # 0.2 L Eosinophils # 0.6 H Differential Comment MANUAL DIFF Large Platelets OCCASIONAL Spherocytes OCCASIONAL Sodium Level 134 L Potassium Level 4.0 Chloride Level 107 Carbon Dioxide Level 21 Anion Gap 10 Blood Urea Nitrogen 12 Creatinine 0.79 Glucose Level 97 Calcium Level 7.9 L Medications Medications Current Medications Trimethoprim/ Sulfamethoxazole (Bactrim (Ds)) 1 tab MoWeFr PO Last administered on 08/08/16 21:34; Admin Dose 1 TAB; Start 08/08/16 at 21:30 Azithromycin (Zithromax) 1,200 mg Q7D PO Last administered on 08/06/16 21:30; Admin Dose 1,200 MG; Start 08/06/16 at 21:30 Acetaminophen (Tylenol Tab) 650 mg Q4H PRN PO PAIN AND OR ELEVATED TEMP; Start 08/07/16 at 08:00 Diltiazem HCl (Cardizem Iv) 10 mg Q1H PRN IV HR GREATER THAN 110; Start at 08:00 Morphine Sulfate (morphine) 2 mg Q4H PRN IV PAIN LEVEL 4-7 Last administered on 08/09/16 19:09; Admin Dose 2 MG; Start 08/07/16 at 08:00 Ondansetron HCl (Zofran Inj) 4 mg Q4H PRN IV NAUSEA AND/OR VOMITING; Start at 08:00 Darunavir (Prezista) 800 mg DAILY PO Last administered on 08/09/16 10:02; Admin Dose 800 MG; Start 08/07/16 at 10:00 Elvitegravir/ Cobicis/Emtricit/ Tenof (Stribild Tablet) 1 each DAILY PO Last administered on 08/09/16 10:02; Admin Dose 1 EACH; Start 08/07/16 at 10:00 Digoxin (Digoxin) 0.125 mg DAILY@13 PO Last administered on 08/09/16 15:18; Admin Dose 0.125 MG; Start 08/07/16 at 13:00 IV Flush (NS 10 ml) 10 ml PRN PRN IV flush; Start 08/07/16 at 12:00 Metoprolol Succinate 25 mg 25 mg BID PO Last administered on 08/09/16 09:23; Admin Dose 25 MG; Start 08/07/16 at 13:00 Meropenem (Merrem 1 Gm/100 ml (Pmx)) 100 ml @ 200 mls/hr Q8 IVPB Last administered on 08/09/16 15:18; Admin Dose 200 MLS/HR; Start 08/08/16 at 14:00 Enoxaparin Sodium (Lovenox) 95 mg Q12 SC Last administered on 08/09/16 09:28; Admin Dose 95 MG; Start 08/08/16 at 21:00 Aspirin 81 mg 81 mg DAILY PO Last administered on 08/09/16 09:22; Admin Dose 81 MG; Start 08/09/16 at 09:00 Potassium Chloride/Sodium Chloride (1/2 NS + KCl 20 Meq) 1,000 ml @ 70 mls/hr [id number] IV Last administered on 08/09/16 09:58; Admin Dose 70 MLS/HR; Start at 15:30 SWATI VALIENTE MD Aug 09, 2016 19:20
[2016-08-10] VITALS (13 sets, daily range): BP systolic 101–123; BP diastolic 55–90; PULSE 52–92; RESP 16–20
[2016-08-10] MEDS: MEROPENEM 1 GM/100 ML (PMX) 100 ML IVPB SCH ×3 (06:12→21:57)
[2016-08-10 07:57] LABS: INR 0.88; PROTIME 11.9 Sec (12.2-14.2); PT RATIO 0.9
[2016-08-10 07:58] LABS: PARTIAL THROMBOPLASTIN TIME 45.3 Sec (25.0-35.0)
[2016-08-10 08:09] LABS: MAGNESIUM 1.7 mg/dl (1.7-2.5); PHOSPHORUS 2.5 mg/dl (2.5-4.9)
[2016-08-10 08:59] LABS: ADD SCAN DIFF NO
[2016-08-10 09:08] LABS: ABNORMAL IP MESSAGE 1; HEMATOCRIT 40.3 % (42.0-52.0); HEMOGLOBIN 13.8 g/dl (14.0-18.0); MEAN CORPUSCULAR HEMOGLOBIN 29.4 pg (29.0-33.0); MEAN CORPUSCULAR HGB CONC 34.2 g/dl (32.0-37.0); MEAN CORPUSCULAR VOLUME 85.7 fl (82.0-101.0); MEAN PLATELET VOLUME 9.4 fl (7.4-10.4); RED CELL DISTRIBUTION WIDTH 14.6 % (11.5-14.5); WHITE BLOOD COUNT 4.4 10^3/ul (4.8-10.8)
[2016-08-10 09:10] LABS: PLATELET COUNT 109 10^3/UL (140-415)
[2016-08-10 09:20] LABS: CALCIUM 8.7 mg/dl (8.4-10.2); CREATININE 0.8 mg/dl (0.61-1.24); POTASSIUM 4.2 mmol/L (3.5-5.1)
[2016-08-10] MEDS: DARUNAVIR ETHANOLATE 800 MG TABLET PO SCH (09:54)
[2016-08-10] MEDS: ELVITEGR/COBICIST/EMTRIC/TENOF 1 EACH TABLET PO SCH (09:54)
[2016-08-10] MEDS: ASPIRIN 81 MG TAB PO SCH (09:54)
[2016-08-10] MEDS: METOPROLOL (XL) 25 MG TAB PO SCH ×2 (09:54→21:58)
[2016-08-10] MEDS: ENOXAPARIN 100 MG/ML SYG SC SCH ×2 (09:58→22:15)
[2016-08-10] MEDS: 1/2 NS + KCL 20 MEQ 1,000 ML IV SCH ×2 (10:24→23:04)
[2016-08-10 10:39] LABS: EOSINOPHILS # 0.6 10^3/ul (0.0-0.5); LYMPHOCYTES # 3.1 10^3/ul (0.8-2.9); MONOCYTE # 0.3 10^3/ul (0.3-0.9); NEUTROPHIL # 0.4 10^3/ul (1.6-7.5)
--- NOTE | 2016-08-10 12:07 | PN ---
DATE: 08/10/2016 SUBJECTIVE: The patient states that he has some mild pain when he urinates. There is no abdominal pain and no flank pain. The patient does have a stone in the right ureter and we are hoping that he will be able to pass it on his own. OBJECTIVE: VITAL SIGNS: His temperature is 97.9, pulse is 72, respirations 18, blood pressure 108/72. ABDOMEN: Soft. There is no abdominal mass palpable and there is no tenderness. LABORATORY DATA: CBC shows a white count of 4.4, hemoglobin 13.8, hematocrit 40.3. BUN 11, creatin ine 0.8, sodium 139, potassium 4.2, chloride 109, CO2 of 22. The urine culture has been negative. The patient did have a KUB yesterday and again this morning, but the one from this morning is not re ported yet. The impression from the KUB yesterday, questionable 8 mm rounded calcification seen jus t to the right of the L4 vertebral body. This may reflect a ureteral stone seen on prior CT scan. Stone appears more distally when compared with prior exam. IMPRESSION: Right ureteral stone and hopefully the stone is coming down and if it is not obstructin g it will give him the chance to pass it on his own. If we have to intervene, then we may hav e to put a JJ stent and later on try to break the stone and remove it. I will follow his urological problem. Dictated By: MAN CUTLER/VINCE Conf#: [id number] DID#: [id number]
[2016-08-10] MEDS: DIGOXIN 0.125 MG TAB PO SCH (12:33)
--- NOTE | 2016-08-10 13:07 | CONS ---
Date/Time of Note Date/Time of Note DATE: 08/10/16 TIME: 13:04 Assessment/Plan Assessment/Plan Chief Complaint/Hosp Course assessment/impression - septic shock, unclear etiology. 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 The sensitivity result was canned on 06/23/2016. Pt took imipenem and aztreonam around that time (his strain of moraxella was sensitive to both in vitro). Subsequent blood cultures were negative. - h/o recurrent neutropenic fever, infectious process vs. immune reconstitution inflammatory response. 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 Restarted on Stribild and darunavir on 04/23/2016. Genotype on 04/20/2016 showed a wild type virus without baseline mutations. Per Pt, he was taking Stribild and darunavir after last admission but stopped one week prior to this admission. Pt's back on both meds. - h/o neutropenia s/p BMBx, no e/o infections or malignancy at this time. CMV IHC negative, CMV PCR in serum was <200, cocci and crypto negative, QTB gold negative - h/o L cervical and supraclavicular lymphadenopathy s/p excisional Bx in 04/2016 : Dr. 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 He recommended the patient receive anti retroviral therapy that should be closely monitored since there is a high incidence of evolution to an overt lymphoma. This was discussed with Pt - h/o cough in 03/2016. CXR showed overinflated lungs, CT showed benign appearing sub-centimeter nodule seen at the bilateral lung bases - LUE weakness and pain due to tear of rotator cuff muscles and bicep tendon anchor (shown on MRI) - h/o thrush, resolved - hyperpigmented lesions on b/l LE x several months according to Pt - h/o pruritis, probably due to atovaquone. 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 worsening neutropenia - place Pt on neutropenic precautions - Pt confirmed that his son and daughter know of his HIV+ status. Pt does not want the other family members to know his HIV+ status management d/w Pt and his RN Problems: Consultation Date/Type/Reason Admit Date/Time Aug 05, 2016 at 20:09 Initial Consult Date 08/06/16 Type of Consultation: ID Referring Provider: MAXIME MCKEON 24 HR Interval Summary Constitutional: improved Detailed Summary Eyes: no complaints ENT: no complaints Respiratory: no complaints Cardiovascular: no complaints Gastrointestinal: no complaints Genitourinary: no complaints Musculoskeletal: bone/joint pain (LUE), restricted range of motion (LUE, chronic) Neurologic: focal-weakness (LUE and L hand (chronic)) Exam/Review of Systems Vital Signs Vitals Vital Signs Date Time Temp Pulse Resp B/P Pulse Ox O2 Delivery O2 Flow Rate FiO2 08/10/16 12:13 52 08/10/16 11:44 98.1 16 107/73 98 08/10/16 08:00 Room Air Intake and Output 08/09/16 08/09/16 08/10/16 15:00 23:00 07:00 Intake Total 230 ml 300 ml Output Total 1600 ml 950 ml 400 ml Balance -1370 ml -950 ml -100 ml Exam Constitutional: alert, oriented, well developed Psych: nl mood/affect, no complaints Head: atraumatic, normocephalic Eyes: nl conjunctiva, nl lids ENMT: nl external ears & nose, nl nasal mucosa & septum Respiratory: diminished breath sounds Cardiovascular: nl pulses, regular rate and rhythm Gastrointestinal: non-tender, soft Musculoskeletal: range of motion (limited: LUE and L hand) Neurological: MEDICAL GENETICS DIRECTOR II-XII intact, nl mental status Skin: other (macules on b/l LE) Results Result Diagram: 08/10/16 0710 08/10/16 0710 Results 24 hrs Laboratory Tests Test 08/10/16 07:10 White Blood Count 4.4 L Red Blood Count 4.70 Hemoglobin 13.8 L Hematocrit 40.3 L Mean Corpuscular Volume 85.7 Mean Corpuscular Hemoglobin 29.4 Mean Corpuscular Hemoglobin Concent 34.2 Red Cell Distribution Width 14.6 H Platelet Count 109 L Mean Platelet Volume 9.4 Neutrophils % 9.0 L Lymphocytes % 71.0 H Monocytes % 6.0 Eosinophils % 14.0 H Neutrophils # 0.4 L Lymphocytes # 3.1 H Monocytes # 0.3 Eosinophils # 0.6 H Prothrombin Time 11.9 L Prothrombin Time Ratio 0.9 INR International Normalized Ratio 0.88 Activated Partial Thromboplast Time 45.3 H Sodium Level 139 Potassium Level 4.2 Chloride Level 109 Carbon Dioxide Level 22 Anion Gap 12 Blood Urea Nitrogen 11 Creatinine 0.80 Glucose Level 114 Calcium Level 8.7 Phosphorus Level 2.5 Magnesium Level 1.7 Medications Medications Current Medications Trimethoprim/ Sulfamethoxazole (Bactrim (Ds)) 1 tab MoWeFr PO Last administered on 08/08/16 21:34; Admin Dose 1 TAB; Start 08/08/16 at 21:30 Azithromycin (Zithromax) 1,200 mg Q7D PO Last administered on 08/06/16 21:30; Admin Dose 1,200 MG; Start 08/06/16 at 21:30 Acetaminophen (Tylenol Tab) 650 mg Q4H PRN PO PAIN AND OR ELEVATED TEMP; Start 08/07/16 at 08:00 Diltiazem HCl (Cardizem Iv) 10 mg Q1H PRN IV HR GREATER THAN 110; Start at 08:00 Morphine Sulfate (morphine) 2 mg Q4H PRN IV PAIN LEVEL 4-7 Last administered on 08/09/16 19:09; Admin Dose 2 MG; Start 08/07/16 at 08:00 Ondansetron HCl (Zofran Inj) 4 mg Q4H PRN IV NAUSEA AND/OR VOMITING; Start at 08:00 Darunavir (Prezista) 800 mg DAILY PO Last administered on 08/10/16 09:54; Admin Dose 800 MG; Start 08/07/16 at 10:00 Elvitegravir/ Cobicis/Emtricit/ Tenof (Stribild Tablet) 1 each DAILY PO Last administered on 08/10/16 09:54; Admin Dose 1 EACH; Start 08/07/16 at 10:00 Digoxin (Digoxin) 0.125 mg DAILY@13 PO Last administered on 08/10/16 12:33; Admin Dose 0.125 MG; Start 08/07/16 at 13:00 IV Flush (NS 10 ml) 10 ml PRN PRN IV flush; Start 08/07/16 at 12:00 Metoprolol Succinate 25 mg 25 mg BID PO Last administered on 08/10/16 09:54; Admin Dose 25 MG; Start 08/07/16 at 13:00 Meropenem (Merrem 1 Gm/100 ml (Pmx)) 100 ml @ 200 mls/hr Q8 IVPB Last administered on 08/10/16 06:12; Admin Dose 200 MLS/HR; Start 08/08/16 at 14:00 Enoxaparin Sodium (Lovenox) 95 mg Q12 SC Last administered on 08/10/16 09:58; Admin Dose 95 MG; Start 08/08/16 at 21:00 Aspirin 81 mg 81 mg DAILY PO Last administered on 08/10/16 09:54; Admin Dose 81 MG; Start 08/09/16 at 09:00 Potassium Chloride/Sodium Chloride (1/2 NS + KCl 20 Meq) 1,000 ml @ 70 mls/hr [id number] IV Last administered on 08/09/16 21:52; Admin Dose 70 MLS/HR; Start at 15:30 JACK LAIRD M.D. Aug 10, 2016 13:07
--- NOTE | 2016-08-10 14:21 | RADRPT ---
PROCEDURE: XR Abdomen. CLINICAL INDICATION: Flank pain. Right ureteral stone. TECHNIQUE: AP abdomen x-ray. COMPARISON: August 09, 2016, August 08, 2016, CT abdomen and pelvis August 05, 2016 FINDINGS: The bowel gas pattern is normal. There is no evidence of obstruction. There are no findings of free air or perforation. The right ureteral stone is not seen on this examination. The osseus structures are unremarkable. The gallbladder has been resected. IMPRESSION: Known, right ureteral stone not seen on the current exam. No findings of bowel obstruction, perfora tion, or free air. Status post cholecystectomy. RPTAT: QQ .Chrissy Maloney MD, MD Date Time Electronically viewed and signed by .Chrissy Maloney MD, on 08/10/2016 14:21 .F/
--- NOTE | 2016-08-10 15:16 | CONS ---
Date/Time of Note Date/Time of Note DATE: 08/10/16 TIME: 15:13 Assessment/Plan Assessment/Plan Chief Complaint/Hosp Course IMP: 1.AF/AFL-rate controlled 2.HIV 3.REnal insuff 4. Leukopenia 5. Obstructive uropathy. 6. Hepatic steatosis. 7. Inguinal hernia. 8. Hyponatremia. 9. Positive troponin-now trended negative/NL EF by echo this admit. Lorin type 2 infarct Recc: -Tele -Continue BB -Continue digoxin -Continue asa -Continue abx's and f/u cx data -Continue lovenox for AF with transition to eliquis/xarelto at d/c -Follow volume status closely -Consider lexiscan when stable to assess significance of positive troponin Problems: Consultation Date/Type/Reason Admit Date/Time Aug 05, 2016 at 20:09 Initial Consult Date 08/06/16 Type of Consultation: cardiology Reason for Consultation AF Referring Provider: MAXIME MCKEON Exam/Review of Systems Vital Signs Vitals Vital Signs Date Time Temp Pulse Resp B/P Pulse Ox O2 Delivery O2 Flow Rate FiO2 08/10/16 12:13 52 08/10/16 11:44 98.1 16 107/73 98 08/10/16 08:00 Room Air Intake and Output 08/09/16 08/09/16 08/10/16 15:00 23:00 07:00 Intake Total 230 ml 300 ml Output Total 1600 ml 950 ml 400 ml Balance -1370 ml -950 ml -100 ml Exam Review of Systems: CONSTITUTIONAL: No fevers, chills. PULMONARY: No sob CARDIOVASCULAR: No chest pain/palpitations GASTROINTESTINAL: No nausea/vomiting. GENITOURINARY: No hematuria/dysuria. MUSCULOSKELETAL: No myagias/arthalgias. PSYCHIATRIC: The patient denies depression. NEUROLOGIC: lethargic Constitutional: alert Psych: no complaints Head: normocephalic ENMT: mucosa pink and moist Neck: jvd, supple Respiratory: diminished breath sounds (at bases/B) Cardiovascular: irregular rhythm Gastrointestinal: non-tender, soft Musculoskeletal: muscle tone (normal) Extremities: edema (none) Neurological: other (No focal deficits) Results Result Diagram: 08/10/16 0710 08/10/16 0710 Results 24 hrs Laboratory Tests Test 08/10/16 07:10 White Blood Count 4.4 L Red Blood Count 4.70 Hemoglobin 13.8 L Hematocrit 40.3 L Mean Corpuscular Volume 85.7 Mean Corpuscular Hemoglobin 29.4 Mean Corpuscular Hemoglobin Concent 34.2 Red Cell Distribution Width 14.6 H Platelet Count 109 L Mean Platelet Volume 9.4 Neutrophils % 9.0 L Lymphocytes % 71.0 H Monocytes % 6.0 Eosinophils % 14.0 H Neutrophils # 0.4 L Lymphocytes # 3.1 H Monocytes # 0.3 Eosinophils # 0.6 H Prothrombin Time 11.9 L Prothrombin Time Ratio 0.9 INR International Normalized Ratio 0.88 Activated Partial Thromboplast Time 45.3 H Sodium Level 139 Potassium Level 4.2 Chloride Level 109 Carbon Dioxide Level 22 Anion Gap 12 Blood Urea Nitrogen 11 Creatinine 0.80 Glucose Level 114 Calcium Level 8.7 Phosphorus Level 2.5 Magnesium Level 1.7 Medications Medications Current Medications Trimethoprim/ Sulfamethoxazole (Bactrim (Ds)) 1 tab MoWeFr PO Last administered on 08/08/16 21:34; Admin Dose 1 TAB; Start 08/08/16 at 21:30 Azithromycin (Zithromax) 1,200 mg Q7D PO Last administered on 08/06/16 21:30; Admin Dose 1,200 MG; Start 08/06/16 at 21:30 Acetaminophen (Tylenol Tab) 650 mg Q4H PRN PO PAIN AND OR ELEVATED TEMP; Start 08/07/16 at 08:00 Diltiazem HCl (Cardizem Iv) 10 mg Q1H PRN IV HR GREATER THAN 110; Start at 08:00 Morphine Sulfate (morphine) 2 mg Q4H PRN IV PAIN LEVEL 4-7 Last administered on 08/09/16 19:09; Admin Dose 2 MG; Start 08/07/16 at 08:00 Ondansetron HCl (Zofran Inj) 4 mg Q4H PRN IV NAUSEA AND/OR VOMITING; Start at 08:00 Darunavir (Prezista) 800 mg DAILY PO Last administered on 08/10/16 09:54; Admin Dose 800 MG; Start 08/07/16 at 10:00 Elvitegravir/ Cobicis/Emtricit/ Tenof (Stribild Tablet) 1 each DAILY PO Last administered on 08/10/16 09:54; Admin Dose 1 EACH; Start 08/07/16 at 10:00 Digoxin (Digoxin) 0.125 mg DAILY@13 PO Last administered on 08/10/16 12:33; Admin Dose 0.125 MG; Start 08/07/16 at 13:00 IV Flush (NS 10 ml) 10 ml PRN PRN IV flush; Start 08/07/16 at 12:00 Metoprolol Succinate 25 mg 25 mg BID PO Last administered on 08/10/16 09:54; Admin Dose 25 MG; Start 08/07/16 at 13:00 Meropenem (Merrem 1 Gm/100 ml (Pmx)) 100 ml @ 200 mls/hr Q8 IVPB Last administered on 08/10/16 13:58; Admin Dose 200 MLS/HR; Start 08/08/16 at 14:00 Enoxaparin Sodium (Lovenox) 95 mg Q12 SC Last administered on 08/10/16 09:58; Admin Dose 95 MG; Start 08/08/16 at 21:00 Aspirin 81 mg 81 mg DAILY PO Last administered on 08/10/16 09:54; Admin Dose 81 MG; Start 08/09/16 at 09:00 Potassium Chloride/Sodium Chloride (1/2 NS + KCl 20 Meq) 1,000 ml @ 70 mls/hr [id number] IV Last administered on 08/09/16 21:52; Admin Dose 70 MLS/HR; Start at 15:30 DO JORDAN Aug 10, 2016 15:16
--- NOTE | 2016-08-10 16:30 | CONS ---
Date/Time of Note Date/Time of Note DATE: 08/10/16 TIME: 16:28 Assessment/Plan Assessment/Plan Additional Assessment/Plan 1. Acute kidney injury, multifactorial secondary to prerenal azotemia, decreased perfusion in the setting of atrial fibrillation, possibly secondary to mild right hydronephrosis secondary to nephrolithiasis. 2. Mild right hydronephrosis secondary to right proximal ureteral kidney stone. 3. Hyponatremia secondary to hypovolemic hyponatremia. 4. History of human immunodeficiency virus, does not know last CD4 count. 5. Atrial fibrillation with rapid ventricular rate. 6. Hypertension. PLAN: Na imrpoving, changed IVF to 1/2 NS with KCL , Today Na normal Cr normal today will follow up Consultation Date/Type/Reason Admit Date/Time Aug 05, 2016 at 20:09 Initial Consult Date 08/06/16 Type of Consultation: NEPHROLOGY Referring Provider: MAXIME MCKEON Exam/Review of Systems Vital Signs Vitals Vital Signs Date Time Temp Pulse Resp B/P Pulse Ox O2 Delivery O2 Flow Rate FiO2 08/10/16 16:11 78 08/10/16 15:14 98.2 16 101/55 100 08/10/16 08:00 Room Air Intake and Output 08/09/16 08/09/16 08/10/16 15:00 23:00 07:00 Intake Total 230 ml 300 ml Output Total 1600 ml 950 ml 400 ml Balance -1370 ml -950 ml -100 ml Exam GENERAL: awake, alert HEENT: LORIN< EOMI NECK: Supple, no JVD, no lymphadenopathy. LUNGS: Clear to auscultation. Decreased breath sounds at both lung bases. HEART: S1, S2, with regular rhythm, no murmur. ABDOMEN: Soft, NT, ND, BS+ EXTREMITIES: No clubbing, cyanosis, edema. NEUROLOGICAL: Nonfocal, intact. Results Result Diagram: 08/10/16 0710 08/10/16 0710 Results 24 hrs Laboratory Tests Test 08/10/16 07:10 White Blood Count 4.4 L Red Blood Count 4.70 Hemoglobin 13.8 L Hematocrit 40.3 L Mean Corpuscular Volume 85.7 Mean Corpuscular Hemoglobin 29.4 Mean Corpuscular Hemoglobin Concent 34.2 Red Cell Distribution Width 14.6 H Platelet Count 109 L Mean Platelet Volume 9.4 Neutrophils % 9.0 L Lymphocytes % 71.0 H Monocytes % 6.0 Eosinophils % 14.0 H Neutrophils # 0.4 L Lymphocytes # 3.1 H Monocytes # 0.3 Eosinophils # 0.6 H Prothrombin Time 11.9 L Prothrombin Time Ratio 0.9 INR International Normalized Ratio 0.88 Activated Partial Thromboplast Time 45.3 H Sodium Level 139 Potassium Level 4.2 Chloride Level 109 Carbon Dioxide Level 22 Anion Gap 12 Blood Urea Nitrogen 11 Creatinine 0.80 Glucose Level 114 Calcium Level 8.7 Phosphorus Level 2.5 Magnesium Level 1.7 Medications Medications Current Medications Trimethoprim/ Sulfamethoxazole (Bactrim (Ds)) 1 tab MoWeFr PO Last administered on 08/08/16 21:34; Admin Dose 1 TAB; Start 08/08/16 at 21:30 Azithromycin (Zithromax) 1,200 mg Q7D PO Last administered on 08/06/16 21:30; Admin Dose 1,200 MG; Start 08/06/16 at 21:30 Acetaminophen (Tylenol Tab) 650 mg Q4H PRN PO PAIN AND OR ELEVATED TEMP; Start 08/07/16 at 08:00 Diltiazem HCl (Cardizem Iv) 10 mg Q1H PRN IV HR GREATER THAN 110; Start at 08:00 Morphine Sulfate (morphine) 2 mg Q4H PRN IV PAIN LEVEL 4-7 Last administered on 08/09/16 19:09; Admin Dose 2 MG; Start 08/07/16 at 08:00 Ondansetron HCl (Zofran Inj) 4 mg Q4H PRN IV NAUSEA AND/OR VOMITING; Start at 08:00 Darunavir (Prezista) 800 mg DAILY PO Last administered on 08/10/16 09:54; Admin Dose 800 MG; Start 08/07/16 at 10:00 Elvitegravir/ Cobicis/Emtricit/ Tenof (Stribild Tablet) 1 each DAILY PO Last administered on 08/10/16 09:54; Admin Dose 1 EACH; Start 08/07/16 at 10:00 Digoxin (Digoxin) 0.125 mg DAILY@13 PO Last administered on 08/10/16 12:33; Admin Dose 0.125 MG; Start 08/07/16 at 13:00 IV Flush (NS 10 ml) 10 ml PRN PRN IV flush; Start 08/07/16 at 12:00 Metoprolol Succinate 25 mg 25 mg BID PO Last administered on 08/10/16 09:54; Admin Dose 25 MG; Start 08/07/16 at 13:00 Meropenem (Merrem 1 Gm/100 ml (Pmx)) 100 ml @ 200 mls/hr Q8 IVPB Last administered on 08/10/16 13:58; Admin Dose 200 MLS/HR; Start 08/08/16 at 14:00 Enoxaparin Sodium (Lovenox) 95 mg Q12 SC Last administered on 08/10/16 09:58; Admin Dose 95 MG; Start 08/08/16 at 21:00 Aspirin 81 mg 81 mg DAILY PO Last administered on 08/10/16 09:54; Admin Dose 81 MG; Start 08/09/16 at 09:00 Potassium Chloride/Sodium Chloride (1/2 NS + KCl 20 Meq) 1,000 ml @ 70 mls/hr [id number] IV Last administered on 08/09/16 21:52; Admin Dose 70 MLS/HR; Start at 15:30 SWATI VALIENTE MD Aug 10, 2016 16:30
--- NOTE | 2016-08-10 17:43 | PN ---
Date/Time of Note Date/Time of Note DATE: 08/10/16 TIME: 17:41 Assessment/Plan VTE Prophylaxis VTE Prophylaxis Intervention: SCD's Lines/Catheters IV C[facility]ter Type (from [facility] PICC Line Central line still needed: Yes Urinary Cath still in place: No Assessment/Plan Chief Complaint/Hosp Course Patient is afebrile continues to have atrial fibrillation at controlled rate. ASSESSMENT AND PLAN: 1. Septic shock, resolving. Dr. Bustillo is following in infectious disease consultation. Patient is currently on broad spectrum antibiotics. Continue to follow up on final cultures. 2. New onset of atrial fibrillation. Dr. Encinas is following in cardiology consultation. The patient is currently on metoprolol, digoxin and aspirin. Continue Lovenox. 3. AIDS. The patient is restarted on antiviral therapy. 4. Acute kidney injury, resolved. Continue to monitor BUN and creatinine. 5. Right upper ureteral stone with mild hydronephrosis. Dr. Kim is following in urology consultation. 6. Noncompliance with HIV medication. Further recommendations based on clinical course. Plan of care discussed with Dr. Walden. Problems: Exam/Review of Systems Vital Signs Vitals Vital Signs Date Time Temp Pulse Resp B/P Pulse Ox O2 Delivery O2 Flow Rate FiO2 08/10/16 16:11 78 08/10/16 15:14 98.2 16 101/55 100 08/10/16 08:00 Room Air Intake and Output 08/09/16 08/09/16 08/10/16 15:00 23:00 07:00 Intake Total 230 ml 300 ml Output Total 1600 ml 950 ml 400 ml Balance -1370 ml -950 ml -100 ml Exam Constitutional: alert, oriented Head: normocephalic Neck: supple Respiratory: normal air movement Cardiovascular: irregular rhythm Gastrointestinal: non-tender, soft Extremities: normal pulses Neurological: nl mental status Results Result Diagram: 08/10/16 0710 08/10/16 0710 Results 24 hrs Laboratory Tests Test 08/10/16 07:10 White Blood Count 4.4 L Red Blood Count 4.70 Hemoglobin 13.8 L Hematocrit 40.3 L Mean Corpuscular Volume 85.7 Mean Corpuscular Hemoglobin 29.4 Mean Corpuscular Hemoglobin Concent 34.2 Red Cell Distribution Width 14.6 H Platelet Count 109 L Mean Platelet Volume 9.4 Neutrophils % 9.0 L Lymphocytes % 71.0 H Monocytes % 6.0 Eosinophils % 14.0 H Neutrophils # 0.4 L Lymphocytes # 3.1 H Monocytes # 0.3 Eosinophils # 0.6 H Prothrombin Time 11.9 L Prothrombin Time Ratio 0.9 INR International Normalized Ratio 0.88 Activated Partial Thromboplast Time 45.3 H Sodium Level 139 Potassium Level 4.2 Chloride Level 109 Carbon Dioxide Level 22 Anion Gap 12 Blood Urea Nitrogen 11 Creatinine 0.80 Glucose Level 114 Calcium Level 8.7 Phosphorus Level 2.5 Magnesium Level 1.7 Medications Medications Current Medications Trimethoprim/ Sulfamethoxazole (Bactrim (Ds)) 1 tab MoWeFr PO Last administered on 08/08/16 21:34; Admin Dose 1 TAB; Start 08/08/16 at 21:30 Azithromycin (Zithromax) 1,200 mg Q7D PO Last administered on 08/06/16 21:30; Admin Dose 1,200 MG; Start 08/06/16 at 21:30 Acetaminophen (Tylenol Tab) 650 mg Q4H PRN PO PAIN AND OR ELEVATED TEMP; Start 08/07/16 at 08:00 Diltiazem HCl (Cardizem Iv) 10 mg Q1H PRN IV HR GREATER THAN 110; Start at 08:00 Morphine Sulfate (morphine) 2 mg Q4H PRN IV PAIN LEVEL 4-7 Last administered on 08/09/16 19:09; Admin Dose 2 MG; Start 08/07/16 at 08:00 Ondansetron HCl (Zofran Inj) 4 mg Q4H PRN IV NAUSEA AND/OR VOMITING; Start at 08:00 Darunavir (Prezista) 800 mg DAILY PO Last administered on 08/10/16 09:54; Admin Dose 800 MG; Start 08/07/16 at 10:00 Elvitegravir/ Cobicis/Emtricit/ Tenof (Stribild Tablet) 1 each DAILY PO Last administered on 08/10/16 09:54; Admin Dose 1 EACH; Start 08/07/16 at 10:00 Digoxin (Digoxin) 0.125 mg DAILY@13 PO Last administered on 08/10/16 12:33; Admin Dose 0.125 MG; Start 08/07/16 at 13:00 IV Flush (NS 10 ml) 10 ml PRN PRN IV flush; Start 08/07/16 at 12:00 Metoprolol Succinate 25 mg 25 mg BID PO Last administered on 08/10/16 09:54; Admin Dose 25 MG; Start 08/07/16 at 13:00 Meropenem (Merrem 1 Gm/100 ml (Pmx)) 100 ml @ 200 mls/hr Q8 IVPB Last administered on 08/10/16 13:58; Admin Dose 200 MLS/HR; Start 08/08/16 at 14:00 Enoxaparin Sodium (Lovenox) 95 mg Q12 SC Last administered on 08/10/16 09:58; Admin Dose 95 MG; Start 08/08/16 at 21:00 Aspirin 81 mg 81 mg DAILY PO Last administered on 08/10/16 09:54; Admin Dose 81 MG; Start 08/09/16 at 09:00 Potassium Chloride/Sodium Chloride (1/2 NS + KCl 20 Meq) 1,000 ml @ 70 mls/hr [id number] IV Last administered on 08/09/16 21:52; Admin Dose 70 MLS/HR; Start at 15:30 AAKASH MITCHELL Aug 10, 2016 17:43
[2016-08-10] MEDS: TRIMETHOPRIM/SULFAMETHOX (DS) TAB PO SCH (22:48)
[2016-08-10] MEDS: morphine 2 MG INJ IV PRN (22:58)
[2016-08-11] VITALS (11 sets, daily range): BP systolic 113–132; BP diastolic 68–90; PULSE 67–75; RESP 18–20
[2016-08-11] MEDS: MEROPENEM 1 GM/100 ML (PMX) 100 ML IVPB SCH ×3 (06:18→21:36)
[2016-08-11 07:56] LABS: ADD SCAN DIFF NO
[2016-08-11 08:05] LABS: ABNORMAL IP MESSAGE 1; BASOPHILS % 0.4 % (0.0-2.0); EOSINOPHILS # 0.3 10^3/ul (0.0-0.5); EOSINOPHILS % 7.3 % (0.0-7.0); HEMATOCRIT 41.6 % (42.0-52.0); LYMPHOCYTES # 3.6 10^3/ul (0.8-2.9); LYMPHOCYTES % 77.1 % (15.0-51.0); MEAN CORPUSCULAR HEMOGLOBIN 28.8 pg (29.0-33.0); MEAN CORPUSCULAR HGB CONC 33.7 g/dl (32.0-37.0); MEAN CORPUSCULAR VOLUME 85.6 fl (82.0-101.0); MEAN PLATELET VOLUME 9.7 fl (7.4-10.4); MONOCYTE # 0.4 10^3/ul (0.3-0.9); MONOCYTES % 7.7 % (0.0-11.0); NEUTROPHIL # 0.3 10^3/ul (1.6-7.5); NEUTROPHILS % 7.3 % (39.0-77.0); PLATELET COUNT 121 10^3/UL (140-415); RED BLOOD COUNT 4.86 10^6/ul (4.70-6.10); RED CELL DISTRIBUTION WIDTH 14.4 % (11.5-14.5); WHITE BLOOD COUNT 4.7 10^3/ul (4.8-10.8)
[2016-08-11] MEDS: ASPIRIN 81 MG TAB PO SCH (08:28)
[2016-08-11] MEDS: DARUNAVIR ETHANOLATE 800 MG TABLET PO SCH (08:28)
[2016-08-11] MEDS: METOPROLOL (XL) 25 MG TAB PO SCH ×2 (08:28→21:35)
[2016-08-11] MEDS: ELVITEGR/COBICIST/EMTRIC/TENOF 1 EACH TABLET PO SCH (08:29)
[2016-08-11] MEDS: ENOXAPARIN 100 MG/ML SYG SC SCH ×2 (08:32→21:43)
[2016-08-11 08:35] LABS: CALCIUM 8.6 mg/dl (8.4-10.2); CREATININE 0.77 mg/dl (0.61-1.24); POTASSIUM 4.2 mmol/L (3.5-5.1)
[2016-08-11] MEDS: DIGOXIN 0.125 MG TAB PO SCH (12:53)
[2016-08-11] MEDS: 1/2 NS + KCL 20 MEQ 1,000 ML IV SCH (15:00)
--- NOTE | 2016-08-11 18:05 | PN ---
DATE: 08/11/2016 The patient denies any abdominal pain, no dysuria and no nausea or vomiting. He does have a stone i n the upper right ureter as demonstrated on CT scan of 08/05/2016. However, followup KUBs were not able to see the stone well and the patient is not having pain to suggest that the stone was obstruc ting and we do not know whether he still has the stone or passed it, even though straining of the ur ine did not yield any stone. OBJECTIVE: VITAL SIGNS: Temperature is 98.6, pulse is 74, respirations 19, blood pressure 132/68. ABDOMEN: Soft. There is no abdominal mass palpable. EXTREMITIES: There is no flank tenderness. LABORATORY DATA: CBC shows a white count of 4.7, hemoglobin 14.0, hematocrit 41.6. BUN is 9, creat inine 0.77. Urinalysis on admission was negative. IMPRESSION: Right upper ureteral stone on CT scan of 08/05/2016. PLAN: Repeat the CT scan. as the plain KUB did not show any definite stone, so we need to know what happened to that stone and also will do a urinalysis to see if there is any microscopic hematuria. Dictated By: MAN CUTLER/VINCE Conf#: [id number] DID#: [id number]
--- NOTE | 2016-08-11 18:35 | CONS ---
Date/Time of Note Date/Time of Note DATE: 08/11/16 TIME: 18:33 Assessment/Plan Assessment/Plan Chief Complaint/Hosp Course IMP: 1.AF/AFL-rate controlled 2.HIV 3.REnal insuff 4. Leukopenia 5. Obstructive uropathy. 6. Hepatic steatosis. 7. Inguinal hernia. 8. Hyponatremia. 9. Positive troponin-now trended negative/NL EF by echo this admit. Likley type 2 infarct. NO chest pain at this time Recc: -Tele -Continue BB -Continue digoxin -Continue asa -Continue abx's and f/u cx data -Continue lovenox for AF with transition to eliquis/xarelto at d/c -Follow volume status closely -Consider lexiscan when stable to assess significance of positive troponin Problems: Consultation Date/Type/Reason Admit Date/Time Aug 05, 2016 at 20:09 Initial Consult Date 08/06/16 Type of Consultation: cardiology Reason for Consultation AF Referring Provider: MAXIME MCKEON Exam/Review of Systems Vital Signs Vitals Vital Signs Date Time Temp Pulse Resp B/P Pulse Ox O2 Delivery O2 Flow Rate FiO2 08/11/16 16:02 75 08/11/16 15:49 98.6 19 132/68 97 08/10/16 08:00 Room Air Intake and Output 08/10/16 08/10/16 08/11/16 15:00 23:00 07:00 Intake Total 400 ml Output Total 400 ml Balance 0 ml Exam Review of Systems: CONSTITUTIONAL: No fevers, chills. PULMONARY: No sob CARDIOVASCULAR: No chest pain/palpitations GASTROINTESTINAL: C/O abdominal pain GENITOURINARY: No hematuria/dysuria. MUSCULOSKELETAL: No myagias/arthalgias. PSYCHIATRIC: The patient denies depression. NEUROLOGIC: No weakness Constitutional: alert Psych: no complaints Head: normocephalic ENMT: mucosa pink and moist Neck: jvd (9cm water), supple Respiratory: diminished breath sounds (at bases/B) Cardiovascular: irregular rhythm Gastrointestinal: non-tender, soft Musculoskeletal: muscle tone (normal) Extremities: edema (none) Neurological: lethargic (somewhat), other (No focal deficits) Results Result Diagram: 08/11/16 0720 08/11/16 0720 Results 24 hrs Laboratory Tests Test 08/11/16 07:20 White Blood Count 4.7 L Red Blood Count 4.86 Hemoglobin 14.0 Hematocrit 41.6 L Mean Corpuscular Volume 85.6 Mean Corpuscular Hemoglobin 28.8 L Mean Corpuscular Hemoglobin Concent 33.7 Red Cell Distribution Width 14.4 Platelet Count 121 L Mean Platelet Volume 9.7 Neutrophils % 7.3 L Lymphocytes % 77.1 H Monocytes % 7.7 Eosinophils % 7.3 H Basophils % 0.4 Nucleated Red Blood Cells % 0.0 Neutrophils # 0.3 L Lymphocytes # 3.6 H Monocytes # 0.4 Eosinophils # 0.3 Basophils # 0.0 Nucleated Red Blood Cells # 0.0 Sodium Level 136 Potassium Level 4.2 Chloride Level 106 Carbon Dioxide Level 24 Anion Gap 10 Blood Urea Nitrogen 9 Creatinine 0.77 Glucose Level 88 Calcium Level 8.6 Medications Medications Current Medications Trimethoprim/ Sulfamethoxazole (Bactrim (Ds)) 1 tab MoWeFr PO Last administered on 08/10/16 22:48; Admin Dose 1 TAB; Start 08/08/16 at 21:30 Azithromycin (Zithromax) 1,200 mg Q7D PO Last administered on 08/06/16 21:30; Admin Dose 1,200 MG; Start 08/06/16 at 21:30 Acetaminophen (Tylenol Tab) 650 mg Q4H PRN PO PAIN AND OR ELEVATED TEMP; Start 08/07/16 at 08:00 Diltiazem HCl (Cardizem Iv) 10 mg Q1H PRN IV HR GREATER THAN 110; Start at 08:00 Morphine Sulfate (morphine) 2 mg Q4H PRN IV PAIN LEVEL 4-7 Last administered on 08/10/16 22:58; Admin Dose 2 MG; Start 08/07/16 at 08:00 Ondansetron HCl (Zofran Inj) 4 mg Q4H PRN IV NAUSEA AND/OR VOMITING; Start at 08:00 Darunavir (Prezista) 800 mg DAILY PO Last administered on 08/11/16 08:28; Admin Dose 800 MG; Start 08/07/16 at 10:00 Elvitegravir/ Cobicis/Emtricit/ Tenof (Stribild Tablet) 1 each DAILY PO Last administered on 08/11/16 08:29; Admin Dose 1 EACH; Start 08/07/16 at 10:00 Digoxin (Digoxin) 0.125 mg DAILY@13 PO Last administered on 08/11/16 12:53; Admin Dose 0.125 MG; Start 08/07/16 at 13:00 IV Flush (NS 10 ml) 10 ml PRN PRN IV flush; Start 08/07/16 at 12:00 Metoprolol Succinate 25 mg 25 mg BID PO Last administered on 08/11/16 08:28; Admin Dose 25 MG; Start 08/07/16 at 13:00 Meropenem (Merrem 1 Gm/100 ml (Pmx)) 100 ml @ 200 mls/hr Q8 IVPB Last administered on 08/11/16 12:49; Admin Dose 200 MLS/HR; Start 08/08/16 at 14:00 Enoxaparin Sodium (Lovenox) 95 mg Q12 SC Last administered on 08/11/16 08:32; Admin Dose 95 MG; Start 08/08/16 at 21:00 Aspirin 81 mg 81 mg DAILY PO Last administered on 08/11/16 08:28; Admin Dose 81 MG; Start 08/09/16 at 09:00 Potassium Chloride/Sodium Chloride (1/2 NS + KCl 20 Meq) 1,000 ml @ 70 mls/hr [id number] IV Last administered on 08/10/16 23:04; Admin Dose 70 MLS/HR; Start at 15:30 DO JORDAN Aug 11, 2016 18:35
--- NOTE | 2016-08-11 19:03 | CONS ---
Date/Time of Note Date/Time of Note DATE: 08/11/16 TIME: 19:02 Assessment/Plan Assessment/Plan Additional Assessment/Plan 1. Acute kidney injury, multifactorial secondary to prerenal azotemia, decreased perfusion in the setting of atrial fibrillation, possibly secondary to mild right hydronephrosis secondary to nephrolithiasis. 2. Mild right hydronephrosis secondary to right proximal ureteral kidney stone. 3. Hyponatremia secondary to hypovolemic hyponatremia. 4. History of human immunodeficiency virus, does not know last CD4 count. 5. Atrial fibrillation with rapid ventricular rate. 6. Hypertension. PLAN: Na imrpoving,VF to 1/2 NS with KCL , Today Na normal Cr normal today will follow up Consultation Date/Type/Reason Admit Date/Time Aug 05, 2016 at 20:09 Initial Consult Date 08/06/16 Type of Consultation: NEPHROLOGY Referring Provider: MAXIME MCKEON Exam/Review of Systems Vital Signs Vitals Vital Signs Date Time Temp Pulse Resp B/P Pulse Ox O2 Delivery O2 Flow Rate FiO2 08/11/16 16:02 75 08/11/16 15:49 98.6 19 132/68 97 08/10/16 08:00 Room Air Intake and Output 08/10/16 08/10/16 08/11/16 15:00 23:00 07:00 Intake Total 400 ml Output Total 400 ml Balance 0 ml Exam GENERAL: awake, alert HEENT: LORIN< EOMI NECK: Supple, no JVD, no lymphadenopathy. LUNGS: Clear to auscultation. Decreased breath sounds at both lung bases. HEART: S1, S2, with regular rhythm, no murmur. ABDOMEN: Soft, NT, ND, BS+ EXTREMITIES: No clubbing, cyanosis, edema. NEUROLOGICAL: Nonfocal, intact. Results Result Diagram: 08/11/16 0720 08/11/16 0720 Results 24 hrs Laboratory Tests Test 08/11/16 07:20 White Blood Count 4.7 L Red Blood Count 4.86 Hemoglobin 14.0 Hematocrit 41.6 L Mean Corpuscular Volume 85.6 Mean Corpuscular Hemoglobin 28.8 L Mean Corpuscular Hemoglobin Concent 33.7 Red Cell Distribution Width 14.4 Platelet Count 121 L Mean Platelet Volume 9.7 Neutrophils % 7.3 L Lymphocytes % 77.1 H Monocytes % 7.7 Eosinophils % 7.3 H Basophils % 0.4 Nucleated Red Blood Cells % 0.0 Neutrophils # 0.3 L Lymphocytes # 3.6 H Monocytes # 0.4 Eosinophils # 0.3 Basophils # 0.0 Nucleated Red Blood Cells # 0.0 Sodium Level 136 Potassium Level 4.2 Chloride Level 106 Carbon Dioxide Level 24 Anion Gap 10 Blood Urea Nitrogen 9 Creatinine 0.77 Glucose Level 88 Calcium Level 8.6 Medications Medications Current Medications Trimethoprim/ Sulfamethoxazole (Bactrim (Ds)) 1 tab MoWeFr PO Last administered on 08/10/16 22:48; Admin Dose 1 TAB; Start 08/08/16 at 21:30 Azithromycin (Zithromax) 1,200 mg Q7D PO Last administered on 08/06/16 21:30; Admin Dose 1,200 MG; Start 08/06/16 at 21:30 Acetaminophen (Tylenol Tab) 650 mg Q4H PRN PO PAIN AND OR ELEVATED TEMP; Start 08/07/16 at 08:00 Diltiazem HCl (Cardizem Iv) 10 mg Q1H PRN IV HR GREATER THAN 110; Start at 08:00 Morphine Sulfate (morphine) 2 mg Q4H PRN IV PAIN LEVEL 4-7 Last administered on 08/10/16 22:58; Admin Dose 2 MG; Start 08/07/16 at 08:00 Ondansetron HCl (Zofran Inj) 4 mg Q4H PRN IV NAUSEA AND/OR VOMITING; Start at 08:00 Darunavir (Prezista) 800 mg DAILY PO Last administered on 08/11/16 08:28; Admin Dose 800 MG; Start 08/07/16 at 10:00 Elvitegravir/ Cobicis/Emtricit/ Tenof (Stribild Tablet) 1 each DAILY PO Last administered on 08/11/16 08:29; Admin Dose 1 EACH; Start 08/07/16 at 10:00 Digoxin (Digoxin) 0.125 mg DAILY@13 PO Last administered on 08/11/16 12:53; Admin Dose 0.125 MG; Start 08/07/16 at 13:00 IV Flush (NS 10 ml) 10 ml PRN PRN IV flush; Start 08/07/16 at 12:00 Metoprolol Succinate 25 mg 25 mg BID PO Last administered on 08/11/16 08:28; Admin Dose 25 MG; Start 08/07/16 at 13:00 Meropenem (Merrem 1 Gm/100 ml (Pmx)) 100 ml @ 200 mls/hr Q8 IVPB Last administered on 08/11/16 12:49; Admin Dose 200 MLS/HR; Start 08/08/16 at 14:00 Enoxaparin Sodium (Lovenox) 95 mg Q12 SC Last administered on 08/11/16 08:32; Admin Dose 95 MG; Start 08/08/16 at 21:00 Aspirin 81 mg 81 mg DAILY PO Last administered on 08/11/16 08:28; Admin Dose 81 MG; Start 08/09/16 at 09:00 Potassium Chloride/Sodium Chloride (1/2 NS + KCl 20 Meq) 1,000 ml @ 70 mls/hr [id number] IV Last administered on 08/10/16 23:04; Admin Dose 70 MLS/HR; Start at 15:30 SWATI VALIENTE MD Aug 11, 2016 19:03
--- NOTE | 2016-08-11 20:17 | PN ---
Date/Time of Note Date/Time of Note DATE: 08/11/16 TIME: 20:16 Assessment/Plan Lines/Catheters IV Catheter Type (from [facility]): PICC Line Urinary Cath still in place: No Assessment/Plan Assessment/Plan 1. Septic shock, resolving. Dr. Bustillo is following in infectious disease consultation. Patient is currently on broad spectrum antibiotics. Continue to follow up on final cultures. 2. New onset of atrial fibrillation. Dr. Encinas is following in cardiology consultation. The patient is currently on metoprolol, digoxin and aspirin. Continue Lovenox. 3. AIDS. The patient is restarted on antiviral therapy. 4. Acute kidney injury, resolved. Continue to monitor BUN and creatinine. 5. Right upper ureteral stone with mild hydronephrosis. Dr. Kim is following in urology consultation. 6. Noncompliance with HIV medication. Further recommendations based on clinical course. Plan of care discussed with Dr. Walden. Subjective 24 Hr Interval Summary Free Text/Dictation Resting, stress test am, Ct abdomen - fu. dw staff. Exam/Review of Systems Vital Signs Vitals Vital Signs Date Time Temp Pulse Resp B/P Pulse Ox O2 Delivery O2 Flow Rate FiO2 08/11/16 16:02 75 08/11/16 15:49 98.6 19 132/68 97 08/10/16 08:00 Room Air Intake and Output 08/10/16 08/10/16 08/11/16 15:00 23:00 07:00 Intake Total 400 ml Output Total 400 ml Balance 0 ml Exam Constitutional: alert, well developed Respiratory: clear to auscultation, normal air movement Cardiovascular: nl pulses, other (AFIB- CONTROLLED, HR- 83), regular rate and rhythm Gastrointestinal: non-tender, soft Musculoskeletal: nl extremities to inspection Extremities: normal pulses Neurological: nl mental status, nl speech Results Result Diagram: 08/11/16 0720 08/11/16 0720 Results 24 hrs Laboratory Tests Test 08/11/16 07:20 White Blood Count 4.7 L Red Blood Count 4.86 Hemoglobin 14.0 Hematocrit 41.6 L Mean Corpuscular Volume 85.6 Mean Corpuscular Hemoglobin 28.8 L Mean Corpuscular Hemoglobin Concent 33.7 Red Cell Distribution Width 14.4 Platelet Count 121 L Mean Platelet Volume 9.7 Neutrophils % 7.3 L Lymphocytes % 77.1 H Monocytes % 7.7 Eosinophils % 7.3 H Basophils % 0.4 Nucleated Red Blood Cells % 0.0 Neutrophils # 0.3 L Lymphocytes # 3.6 H Monocytes # 0.4 Eosinophils # 0.3 Basophils # 0.0 Nucleated Red Blood Cells # 0.0 Sodium Level 136 Potassium Level 4.2 Chloride Level 106 Carbon Dioxide Level 24 Anion Gap 10 Blood Urea Nitrogen 9 Creatinine 0.77 Glucose Level 88 Calcium Level 8.6 Medications Medications Current Medications Trimethoprim/ Sulfamethoxazole (Bactrim (Ds)) 1 tab MoWeFr PO Last administered on 08/10/16 22:48; Admin Dose 1 TAB; Start 08/08/16 at 21:30 Azithromycin (Zithromax) 1,200 mg Q7D PO Last administered on 08/06/16 21:30; Admin Dose 1,200 MG; Start 08/06/16 at 21:30 Acetaminophen (Tylenol Tab) 650 mg Q4H PRN PO PAIN AND OR ELEVATED TEMP; Start 08/07/16 at 08:00 Diltiazem HCl (Cardizem Iv) 10 mg Q1H PRN IV HR GREATER THAN 110; Start at 08:00 Morphine Sulfate (morphine) 2 mg Q4H PRN IV PAIN LEVEL 4-7 Last administered on 08/10/16 22:58; Admin Dose 2 MG; Start 08/07/16 at 08:00 Ondansetron HCl (Zofran Inj) 4 mg Q4H PRN IV NAUSEA AND/OR VOMITING; Start at 08:00 Darunavir (Prezista) 800 mg DAILY PO Last administered on 08/11/16 08:28; Admin Dose 800 MG; Start 08/07/16 at 10:00 Elvitegravir/ Cobicis/Emtricit/ Tenof (Stribild Tablet) 1 each DAILY PO Last administered on 08/11/16 08:29; Admin Dose 1 EACH; Start 08/07/16 at 10:00 Digoxin (Digoxin) 0.125 mg DAILY@13 PO Last administered on 08/11/16 12:53; Admin Dose 0.125 MG; Start 08/07/16 at 13:00 IV Flush (NS 10 ml) 10 ml PRN PRN IV flush; Start 08/07/16 at 12:00 Metoprolol Succinate 25 mg 25 mg BID PO Last administered on 08/11/16 08:28; Admin Dose 25 MG; Start 08/07/16 at 13:00 Meropenem (Merrem 1 Gm/100 ml (Pmx)) 100 ml @ 200 mls/hr Q8 IVPB Last administered on 08/11/16 12:49; Admin Dose 200 MLS/HR; Start 08/08/16 at 14:00 Enoxaparin Sodium (Lovenox) 95 mg Q12 SC Last administered on 08/11/16 08:32; Admin Dose 95 MG; Start 08/08/16 at 21:00 Aspirin 81 mg 81 mg DAILY PO Last administered on 08/11/16 08:28; Admin Dose 81 MG; Start 08/09/16 at 09:00 Potassium Chloride/Sodium Chloride (1/2 NS + KCl 20 Meq) 1,000 ml @ 70 mls/hr [id number] IV Last administered on 08/10/16 23:04; Admin Dose 70 MLS/HR; Start at 15:30 MAXIME MCKEON Aug 11, 2016 20:17
--- NOTE | 2016-08-11 22:13 | CONS ---
Date/Time of Note Date/Time of Note DATE: 08/11/16 TIME: 22:09 Assessment/Plan Assessment/Plan Chief Complaint/Hosp Course assessment/impression - septic shock, unclear etiology. 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 The sensitivity result was canned on 06/23/2016. Pt took imipenem and aztreonam around that time (his strain of moraxella was sensitive to both in vitro). Subsequent blood cultures were negative. - h/o recurrent neutropenic fever, infectious process vs. immune reconstitution inflammatory response. WBC tagged scan negative from 05/12/2016 - advanced AIDS with CD4<20 GTZ=332,120 copies (CD4<20, viral load 166,544 copies in 04/21/2016 & repeat CD4 37 on 05/07/2016) was non-compliant with medications. Restarted on Stribild and darunavir on 04/23/2016; however, likely stopped after the last admission because his viral load is very high and CD4 count is very low. Genotype on 04/20/2016 showed a wild type virus without baseline mutations. - h/o neutropenia s/p BMBx, no e/o infections or malignancy at this time. CMV IHC negative, CMV PCR in serum was <200, cocci and crypto negative, QTB gold negative - h/o L cervical and supraclavicular lymphadenopathy s/p excisional Bx in 04/2016 : Dr. 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 He recommended the patient receive anti retroviral therapy that should be closely monitored since there is a high incidence of evolution to an overt lymphoma. This was discussed with Pt - h/o cough in 03/2016. CXR showed overinflated lungs, CT showed benign appearing sub-centimeter nodule seen at the bilateral lung bases - LUE weakness and pain due to tear of rotator cuff muscles and bicep tendon anchor (shown on MRI) - h/o thrush, resolved - hyperpigmented lesions on b/l LE x several months according to Pt - h/o pruritis, probably due to atovaquone. 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 worsening neutropenia - keep Pt on neutropenic precautions - Pt confirmed that his son and daughter know of his HIV+ status. Pt does not want the other family members to know his HIV+ status management d/w Pt Problems: Consultation Date/Type/Reason Admit Date/Time Aug 05, 2016 at 20:09 Initial Consult Date 08/06/16 Type of Consultation: ID Referring Provider: MAXIME MCKEON 24 HR Interval Summary Constitutional: no complaints Detailed Summary Eyes: no complaints ENT: no complaints Respiratory: no complaints Cardiovascular: no complaints Gastrointestinal: no complaints Genitourinary: no complaints Musculoskeletal: restricted range of motion (LUE) Skin: no complaints Neurologic: focal-weakness (L hand, chronic) Exam/Review of Systems Vital Signs Vitals Vital Signs Date Time Temp Pulse Resp B/P Pulse Ox O2 Delivery O2 Flow Rate FiO2 08/11/16 20:20 70 08/11/16 20:00 97.6 20 113/77 100 08/10/16 08:00 Room Air Intake and Output 08/10/16 08/10/16 08/11/16 15:00 23:00 07:00 Intake Total 400 ml Output Total 400 ml Balance 0 ml Exam Constitutional: alert, oriented, well developed Psych: nl mood/affect, no complaints Head: atraumatic, normocephalic Eyes: nl conjunctiva, nl lids ENMT: nl external ears & nose, nl nasal mucosa & septum Neck: supple Respiratory: clear to auscultation, normal air movement Cardiovascular: nl pulses, regular rate and rhythm Gastrointestinal: non-tender, soft Musculoskeletal: range of motion (limited around L shoulder) Extremities: No edema Neurological: focal weakness (LUE and L hand, chronic) Skin: rash or lesions (macules on b/l LE) Results Result Diagram: 08/11/16 0720 08/11/16 0720 Results 24 hrs Laboratory Tests Test 08/11/16 07:20 White Blood Count 4.7 L Red Blood Count 4.86 Hemoglobin 14.0 Hematocrit 41.6 L Mean Corpuscular Volume 85.6 Mean Corpuscular Hemoglobin 28.8 L Mean Corpuscular Hemoglobin Concent 33.7 Red Cell Distribution Width 14.4 Platelet Count 121 L Mean Platelet Volume 9.7 Neutrophils % 7.3 L Lymphocytes % 77.1 H Monocytes % 7.7 Eosinophils % 7.3 H Basophils % 0.4 Nucleated Red Blood Cells % 0.0 Neutrophils # 0.3 L Lymphocytes # 3.6 H Monocytes # 0.4 Eosinophils # 0.3 Basophils # 0.0 Nucleated Red Blood Cells # 0.0 Sodium Level 136 Potassium Level 4.2 Chloride Level 106 Carbon Dioxide Level 24 Anion Gap 10 Blood Urea Nitrogen 9 Creatinine 0.77 Glucose Level 88 Calcium Level 8.6 Medications Medications Current Medications Trimethoprim/ Sulfamethoxazole (Bactrim (Ds)) 1 tab MoWeFr PO Last administered on 08/10/16 22:48; Admin Dose 1 TAB; Start 08/08/16 at 21:30 Azithromycin (Zithromax) 1,200 mg Q7D PO Last administered on 08/06/16 21:30; Admin Dose 1,200 MG; Start 08/06/16 at 21:30 Acetaminophen (Tylenol Tab) 650 mg Q4H PRN PO PAIN AND OR ELEVATED TEMP; Start 08/07/16 at 08:00 Diltiazem HCl (Cardizem Iv) 10 mg Q1H PRN IV HR GREATER THAN 110; Start at 08:00 Morphine Sulfate (morphine) 2 mg Q4H PRN IV PAIN LEVEL 4-7 Last administered on 08/10/16 22:58; Admin Dose 2 MG; Start 08/07/16 at 08:00 Ondansetron HCl (Zofran Inj) 4 mg Q4H PRN IV NAUSEA AND/OR VOMITING; Start at 08:00 Darunavir (Prezista) 800 mg DAILY PO Last administered on 08/11/16 08:28; Admin Dose 800 MG; Start 08/07/16 at 10:00 Elvitegravir/ Cobicis/Emtricit/ Tenof (Stribild Tablet) 1 each DAILY PO Last administered on 08/11/16 08:29; Admin Dose 1 EACH; Start 08/07/16 at 10:00 Digoxin (Digoxin) 0.125 mg DAILY@13 PO Last administered on 08/11/16 12:53; Admin Dose 0.125 MG; Start 08/07/16 at 13:00 IV Flush (NS 10 ml) 10 ml PRN PRN IV flush; Start 08/07/16 at 12:00 Metoprolol Succinate 25 mg 25 mg BID PO Last administered on 08/11/16 21:35; Admin Dose 25 MG; Start 08/07/16 at 13:00 Meropenem (Merrem 1 Gm/100 ml (Pmx)) 100 ml @ 200 mls/hr Q8 IVPB Last administered on 08/11/16 21:36; Admin Dose 200 MLS/HR; Start 08/08/16 at 14:00 Enoxaparin Sodium (Lovenox) 95 mg Q12 SC Last administered on 08/11/16 21:43; Admin Dose 95 MG; Start 08/08/16 at 21:00 Aspirin 81 mg 81 mg DAILY PO Last administered on 08/11/16 08:28; Admin Dose 81 MG; Start 08/09/16 at 09:00 Potassium Chloride/Sodium Chloride (1/2 NS + KCl 20 Meq) 1,000 ml @ 70 mls/hr [id number] IV Last administered on 08/10/16 23:04; Admin Dose 70 MLS/HR; Start at 15:30 JACK LAIRD M.D. Aug 11, 2016 22:13
[2016-08-12] VITALS (13 sets, daily range): BP systolic 98–116; BP diastolic 59–82; PULSE 44–78; RESP 16–19
[2016-08-12] MEDS: 1/2 NS + KCL 20 MEQ 1,000 ML IV SCH (02:02)
[2016-08-12] MEDS: morphine 2 MG INJ IV PRN ×3 (02:05→23:10)
[2016-08-12] MEDS: LEVOFLOXACIN 500 MG TAB PO SCH (05:57)
[2016-08-12 06:52] LABS: ADD SCAN DIFF NO
[2016-08-12 07:05] LABS: ABNORMAL IP MESSAGE 1; BASOPHILS % 0.6 % (0.0-2.0); EOSINOPHILS # 0.3 10^3/ul (0.0-0.5); HEMOGLOBIN 14.1 g/dl (14.0-18.0); LYMPHOCYTES # 3.6 10^3/ul (0.8-2.9); LYMPHOCYTES % 73.5 % (15.0-51.0); MEAN CORPUSCULAR HEMOGLOBIN 28.8 pg (29.0-33.0); MEAN CORPUSCULAR HGB CONC 33.6 g/dl (32.0-37.0); MEAN CORPUSCULAR VOLUME 85.9 fl (82.0-101.0); MONOCYTE # 0.5 10^3/ul (0.3-0.9); MONOCYTES % 9.9 % (0.0-11.0); NEUTROPHIL # 0.5 10^3/ul (1.6-7.5); NEUTROPHILS % 9.8 % (39.0-77.0); PLATELET COUNT 162 10^3/UL (140-415); RED BLOOD COUNT 4.89 10^6/ul (4.70-6.10); RED CELL DISTRIBUTION WIDTH 14.3 % (11.5-14.5); WHITE BLOOD COUNT 4.9 10^3/ul (4.8-10.8)
[2016-08-12 07:54] LABS: CREATININE 0.8 mg/dl (0.61-1.24); POTASSIUM 4.3 mmol/L (3.5-5.1)
--- NOTE | 2016-08-12 09:16 | CONS ---
Date/Time of Note Date/Time of Note DATE: 08/12/16 TIME: 09:14 Assessment/Plan Assessment/Plan Additional Assessment/Plan 1.AF/AFL-rate controlled - in good rate control now 2.HIV - primary follows 3.Renal insuff- chronic, avoid nephrotoxic meds 4. Leukopenia - with HIV. 5. Obstructive uropathy. 6. Hepatic steatosis. 7. Inguinal hernia. 8. Hyponatremia. 9. Positive troponin-now trended negative/NL EF by echo this admit. Likley type 2 infarct. NO chest pain at this time - STRESS TEST TODAY. Consultation Date/Type/Reason Admit Date/Time Aug 05, 2016 at 20:09 Initial Consult Date 08/06/16 Type of Consultation: ID Referring Provider: AMXIME MCKEON 24 HR Interval Summary Free Text/Dictation NO acute evens - BP in g ood range - stress test planned today. ROS: No fever, no chills, no nausea, no vomiting, no diarrhea/constipation No recent weight changes No chest pain, no PND, no orthopnea No dizziness, blurred vision No thirst, no heat or cold intolerance Exam/Review of Systems Vital Signs Vitals Vital Signs Date Time Temp Pulse Resp B/P Pulse Ox O2 Delivery O2 Flow Rate FiO2 08/12/16 08:14 70 08/12/16 07:40 97.6 18 99/69 98 08/10/16 08:00 Room Air Intake and Output 08/11/16 08/11/16 08/12/16 15:00 23:00 07:00 Intake Total 250 ml 1680 ml Output Total 600 ml 700 ml Balance -350 ml 980 ml Exam General: WN/WD/NAD, AOx 3 HEENT: Unicetric/atraumatic/EOMI ( follows commands) NECK: JVD elevated, no thyromegaly Lymph: no lymphadenopathy HEART: Irregular with no S3, II/ systolic murmur at apex LUNGS: Coarse sounds ABD: soft, NT, ND, +BS : Intact Neuro: non focal SKIN: chronic changes EXT: trace edema Results Result Diagram: 08/12/1615 08/12/16 0615 Results 24 hrs Laboratory Tests Test 08/12/16 06:15 White Blood Count 4.9 Red Blood Count 4.89 Hemoglobin 14.1 Hematocrit 42.0 Mean Corpuscular Volume 85.9 Mean Corpuscular Hemoglobin 28.8 L Mean Corpuscular Hemoglobin Concent 33.6 Red Cell Distribution Width 14.3 Platelet Count 162 # Mean Platelet Volume 10.0 Neutrophils % 9.8 L Lymphocytes % 73.5 H Monocytes % 9.9 Eosinophils % 6.0 Basophils % 0.6 Nucleated Red Blood Cells % 0.0 Neutrophils # 0.5 L Lymphocytes # 3.6 H Monocytes # 0.5 Eosinophils # 0.3 Basophils # 0.0 Nucleated Red Blood Cells # 0.0 Sodium Level 135 Potassium Level 4.3 Chloride Level 106 Carbon Dioxide Level 23 Anion Gap 10 Blood Urea Nitrogen 10 Creatinine 0.80 Glucose Level 90 Calcium Level 9.0 Medications Medications Current Medications Trimethoprim/ Sulfamethoxazole (Bactrim (Ds)) 1 tab MoWeFr PO Last administered on 08/10/16 22:48; Admin Dose 1 TAB; Start 08/08/16 at 21:30 Azithromycin (Zithromax) 1,200 mg Q7D PO Last administered on 08/06/16 21:30; Admin Dose 1,200 MG; Start 08/06/16 at 21:30 Acetaminophen (Tylenol Tab) 650 mg Q4H PRN PO PAIN AND OR ELEVATED TEMP; Start 08/07/16 at 08:00 Diltiazem HCl (Cardizem Iv) 10 mg Q1H PRN IV HR GREATER THAN 110; Start at 08:00 Morphine Sulfate (morphine) 2 mg Q4H PRN IV PAIN LEVEL 4-7 Last administered on 08/12/16 06:11; Admin Dose 2 MG; Start 08/07/16 at 08:00 Ondansetron HCl (Zofran Inj) 4 mg Q4H PRN IV NAUSEA AND/OR VOMITING; Start at 08:00 Darunavir (Prezista) 800 mg DAILY PO Last administered on 08/11/16 08:28; Admin Dose 800 MG; Start 08/07/16 at 10:00 Elvitegravir/ Cobicis/Emtricit/ Tenof (Stribild Tablet) 1 each DAILY PO Last administered on 08/11/16 08:29; Admin Dose 1 EACH; Start 08/07/16 at 10:00 Digoxin (Digoxin) 0.125 mg DAILY@13 PO Last administered on 08/11/16 12:53; Admin Dose 0.125 MG; Start 08/07/16 at 13:00 IV Flush (NS 10 ml) 10 ml PRN PRN IV flush; Start 08/07/16 at 12:00 Metoprolol Succinate (Toprol Xl) 25 mg BID PO Last administered on 08/11/16 21 :35; Admin Dose 25 MG; Start 08/07/16 at 13:00 Enoxaparin Sodium (Lovenox) 95 mg Q12 SC Last administered on 08/11/16 21:43; Admin Dose 95 MG; Start 08/08/16 at 21:00 Aspirin 81 mg 81 mg DAILY PO Last administered on 08/11/16 08:28; Admin Dose 81 MG; Start 08/09/16 at 09:00 Potassium Chloride/Sodium Chloride (1/2 NS + KCl 20 Meq) 1,000 ml @ 70 mls/hr [id number] IV Last administered on 08/12/16 02:02; Admin Dose 70 MLS/HR; Start at 15:30 Levofloxacin (Levaquin) 500 mg DAILY@06 PO Last administered on 08/12/16 05:57 ; Admin Dose 500 MG; Start 08/12/16 at 06:00 SALMA PUCKETT MD Aug 12, 2016 09:16
[2016-08-12] MEDS: ONDANSETRON 4 MG INJ IV PRN (09:33)
[2016-08-12] MEDS ORDERED: REGADENOSON 0.4 MG/5 ML SYG ONE (09:38)
--- NOTE | 2016-08-12 10:53 | ECORPT ---
DATE OF SERVICE: 08/12/2016 PROCEDURE: Lexiscan Cardiolite stress test. REFERRING PHYSICIANS: Dr. Walden and Dr. Encinas REASON FOR EVALUATION: Chest pain. DESCRIPTION OF PROCEDURE: The patient was brought in to the heart station in a fasting condition. His initial blood pressure was 117/65. The patient was in atrial fibrillation. With injection, he d eveloped some increased rates on his EKG with some nonspecific ST-T changes. Over all, he tolerated the injection well. The imaging portion of the report will be dictated separately. Dictated By: SALMA PUCKETT MD ML/NTS Conf#: [id number] DID#: [id number]
--- NOTE | 2016-08-12 11:26 | RADRPT ---
PROCEDURE: Lexiscan myocardial perfusion study CLINICAL INDICATION: 66 -year-old patient complaining of chest pain. TECHNIQUE: Lexiscan 0.4 mg intravenously separate acquisition gated myocardial perfusion SPECT usi ng Tc 99m Myoview 31.8 mCi intravenously at stress and Tc-99m Myoview, 10.5 mCi intravenously at res t was performed using the rest/stress sequence. Poststress Myoview SPECT images were obtained in th e supine position. COMPARISON: No prior studies. FINDINGS: Perfusion images reveal a small size mild in degree predominantly nonreversible perfusion defect in the inferior and basal anterior roche. Lexiscan post stress gated SPECT images demonstrate no wall motion abnormalities. IMPRESSION: 1. The type and distribution of the scintigraphic abnormalities are most consistent with a small pr edominantly nonreversible perfusion defects in the inferior and basal anterior roche. 2. No wall motion abnormalities. 3. The left ventricle ejection fraction at stress is 54%. A call report was made to Dr. Thakkar at 11:23 a.m. on August 12, 2016. RPTAT: HH .Zoie Camacho MD, Date Time Electronically viewed and signed by .Zoie Camacho MD, on 08/12/2016 11:25 .L/
--- NOTE | 2016-08-12 12:59 | CONS ---
Date/Time of Note Date/Time of Note DATE: 08/12/16 TIME: 12:57 Assessment/Plan Assessment/Plan Chief Complaint/Hosp Course assessment/impression - septic shock, unclear etiology. 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 The sensitivity result was canned on 06/23/2016. Pt took imipenem and aztreonam around that time (his strain of moraxella was sensitive to both in vitro). Subsequent blood cultures were negative. - h/o recurrent neutropenic fever, infectious process vs. immune reconstitution inflammatory response. WBC tagged scan negative from 05/12/2016 - advanced AIDS with CD4<20 LUD=316,120 copies (CD4<20, viral load 166,544 copies in 04/21/2016 & repeat CD4 37 on 05/07/2016) was non-compliant with medications. Restarted on Stribild and darunavir on 04/23/2016; however, likely stopped after the last admission because his viral load is very high and CD4 count is very low. Genotype on 04/20/2016 showed a wild type virus without baseline mutations. - h/o neutropenia s/p BMBx, no e/o infections or malignancy at this time. CMV IHC negative, CMV PCR in serum was <200, cocci and crypto negative, QTB gold negative - h/o L cervical and supraclavicular lymphadenopathy s/p excisional Bx in 04/2016 : Dr. 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 He recommended the patient receive anti retroviral therapy that should be closely monitored since there is a high incidence of evolution to an overt lymphoma. This was discussed with Pt - h/o cough in 03/2016. CXR showed overinflated lungs, CT showed benign appearing sub-centimeter nodule seen at the bilateral lung bases - LUE weakness and pain due to tear of rotator cuff muscles and bicep tendon anchor (shown on MRI) - h/o thrush, resolved - hyperpigmented lesions on b/l LE x several months according to Pt - h/o pruritis, probably due to atovaquone. 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 Pt does not want the other family members to know his HIV+ status management d/w Pt Problems: Consultation Date/Type/Reason Admit Date/Time Aug 05, 2016 at 20:09 Initial Consult Date 08/06/16 Type of Consultation: ID Referring Provider: MAXIME MCKEON 24 HR Interval Summary Constitutional: no complaints Detailed Summary Eyes: no complaints ENT: no complaints Respiratory: no complaints Cardiovascular: no complaints Gastrointestinal: no complaints Genitourinary: no complaints Musculoskeletal: restricted range of motion (LUE, L hand (chronic)) Skin: no complaints Neurologic: focal-weakness (LUE and L hand (chronic)) Exam/Review of Systems Vital Signs Vitals Vital Signs Date Time Temp Pulse Resp B/P Pulse Ox O2 Delivery O2 Flow Rate FiO2 08/12/16 12:12 78 08/12/16 11:36 98.2 19 116/65 100 08/10/16 08:00 Room Air Intake and Output 08/11/16 08/11/16 08/12/16 15:00 23:00 07:00 Intake Total 250 ml 1680 ml Output Total 600 ml 700 ml Balance -350 ml 980 ml Exam Constitutional: alert, oriented, well developed Psych: nl mood/affect, no complaints Head: atraumatic, normocephalic Eyes: nl conjunctiva, nl lids ENMT: nl external ears & nose, nl nasal mucosa & septum Neck: supple Respiratory: clear to auscultation, normal air movement Cardiovascular: nl pulses, regular rate and rhythm Musculoskeletal: muscle weakness (LUE (chronic)) Extremities: No edema Neurological: SWITCH 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 II-XII intact, nl mental status, nl speech Skin: other (macules on b/l LE) Results Result Diagram: 08/12/16 0615 08/12/16 0615 Results 24 hrs Laboratory Tests Test 08/12/16 06:15 White Blood Count 4.9 Red Blood Count 4.89 Hemoglobin 14.1 Hematocrit 42.0 Mean Corpuscular Volume 85.9 Mean Corpuscular Hemoglobin 28.8 L Mean Corpuscular Hemoglobin Concent 33.6 Red Cell Distribution Width 14.3 Platelet Count 162 # Mean Platelet Volume 10.0 Neutrophils % 9.8 L Lymphocytes % 73.5 H Monocytes % 9.9 Eosinophils % 6.0 Basophils % 0.6 Nucleated Red Blood Cells % 0.0 Neutrophils # 0.5 L Lymphocytes # 3.6 H Monocytes # 0.5 Eosinophils # 0.3 Basophils # 0.0 Nucleated Red Blood Cells # 0.0 Sodium Level 135 Potassium Level 4.3 Chloride Level 106 Carbon Dioxide Level 23 Anion Gap 10 Blood Urea Nitrogen 10 Creatinine 0.80 Glucose Level 90 Calcium Level 9.0 Medications Medications Current Medications Trimethoprim/ Sulfamethoxazole (Bactrim (Ds)) 1 tab MoWeFr PO Last administered on 08/10/16 22:48; Admin Dose 1 TAB; Start 08/08/16 at 21:30 Azithromycin (Zithromax) 1,200 mg Q7D PO Last administered on 08/06/16 21:30; Admin Dose 1,200 MG; Start 08/06/16 at 21:30 Acetaminophen (Tylenol Tab) 650 mg Q4H PRN PO PAIN AND OR ELEVATED TEMP; Start 08/07/16 at 08:00 Diltiazem HCl (Cardizem Iv) 10 mg Q1H PRN IV HR GREATER THAN 110; Start at 08:00 Morphine Sulfate (morphine) 2 mg Q4H PRN IV PAIN LEVEL 4-7 Last administered on 08/12/16 06:11; Admin Dose 2 MG; Start 08/07/16 at 08:00 Ondansetron HCl (Zofran Inj) 4 mg Q4H PRN IV NAUSEA AND/OR VOMITING Last administered on 08/12/16 09:33; Admin Dose 4 MG; Start 08/07/16 at 08:00 Darunavir (Prezista) 800 mg DAILY PO Last administered on 08/11/16 08:28; Admin Dose 800 MG; Start 08/07/16 at 10:00 Elvitegravir/ Cobicis/Emtricit/ Tenof (Stribild Tablet) 1 each DAILY PO Last administered on 08/11/16 08:29; Admin Dose 1 EACH; Start 08/07/16 at 10:00 Digoxin (Digoxin) 0.125 mg DAILY@13 PO Last administered on 08/11/16 12:53; Admin Dose 0.125 MG; Start 08/07/16 at 13:00 IV Flush (NS 10 ml) 10 ml PRN PRN IV flush; Start 08/07/16 at 12:00 Metoprolol Succinate (Toprol Xl) 25 mg BID PO Last administered on 08/11/16 21 :35; Admin Dose 25 MG; Start 08/07/16 at 13:00 Enoxaparin Sodium (Lovenox) 95 mg Q12 SC Last administered on 08/11/16 21:43; Admin Dose 95 MG; Start 08/08/16 at 21:00 Aspirin 81 mg 81 mg DAILY PO Last administered on 08/11/16 08:28; Admin Dose 81 MG; Start 08/09/16 at 09:00 Potassium Chloride/Sodium Chloride (1/2 NS + KCl 20 Meq) 1,000 ml @ 70 mls/hr [id number] IV Last administered on 08/12/16 02:02; Admin Dose 70 MLS/HR; Start at 15:30 Levofloxacin (Levaquin) 500 mg DAILY@06 PO Last administered on 08/12/16 05:57 ; Admin Dose 500 MG; Start 08/12/16 at 06:00 JACK LAIRD M.D. Aug 12, 2016 12:59
[2016-08-12] MEDS: DARUNAVIR ETHANOLATE 800 MG TABLET PO SCH (13:18)
[2016-08-12] MEDS: DIGOXIN 0.125 MG TAB PO SCH (13:19)
[2016-08-12] MEDS: ASPIRIN 81 MG TAB PO SCH (13:19)
[2016-08-12] MEDS: ENOXAPARIN 100 MG/ML SYG SC SCH ×2 (13:21→21:36)
[2016-08-12] MEDS: METOPROLOL (XL) 25 MG TAB PO SCH ×2 (13:22→21:30)
[2016-08-12] MEDS: ELVITEGR/COBICIST/EMTRIC/TENOF 1 EACH TABLET PO SCH (13:23)
--- NOTE | 2016-08-12 14:19 | RADRPT ---
PROCEDURE: CT Abdomen and Pelvis without contrast. CLINICAL INDICATION: Abdominal and pelvic pain. TECHNIQUE: CT scan of the abdomen and pelvis without contrast was performed. Coronal and sagittal reformatted images were obtained from the axial source images. Images were reviewed on a high-resolu tion PACS workstation. Total exam DLP is 1013.44 mGy-cm. CTDIvol is 16.17 mGy. One or more of the following dose reduction techniques were used: Automated exposure control, adjustment of the mA and/ or kV according to patient size, use of iterative reconstruction technique. COMPARISON: CT scan of the abdomen and pelvis dated 08/05/2016 which demonstrated mild right hydron ephrosis due to a 0.6 cm calculus in the proximal right ureter, fatty liver, and a small fat-contain ing left inguinal hernia. FINDINGS: There is mild atelectasis at the lung bases posteriorly. The lung bases are otherwise normal. Ther e is no pleural effusion or pericardial effusion. The heart size is normal. The liver is normal in size and diffusely decreased in attenuation. There is no focal hepatic lesio n. The gallbladder is surgically absent with clips noted in the gallbladder bed. The bile ducts are no rmal. The spleen is normal in size. There is no focal splenic lesion. Both adrenals are normal with no enlargement or mass. The pancreas is unremarkable with no mass or evidence of pancreatitis. There is a nonobstructing 0.6 cm calculus in the lower right kidney which appears to be the calculus previously present in the proximal right ureter as this is no longer present at this site. Previous ly noted right hydronephrosis is also no longer present. There is no other urinary tract calculus a nd there is no left hydronephrosis. There is no solid renal mass. The abdominal aorta is not dilated. There is no retroperitoneal lymphadenopathy or mass. There is no pelvic lymphadenopathy or mass. The bladder and distal ureters are normal. The periappendiceal region is unremarkable with no evidence of appendicitis. There is a small fat-containing left inguinal hernia, unchanged. There is no herniated bowel. There is no free fluid or free gas. There are degenerative changes of the spine and hips. There is no fracture or lytic lesion. IMPRESSION: 1. Mild atelectasis at the lung bases posteriorly. 2. Fatty metamorphosis of the liver. 3. Status post cholecystectomy. 4. Previously noted obstructing 0.6 cm calculus in the proximal right ureter has moved into the low er right kidney. Previously noted right hydronephrosis is no longer present. 5. No other urinary tract calculus. 6. Small fat-containing left inguinal hernia. 7. Degenerative changes of the spine and hips. RPTAT: QQ .Danish Whelan MD, MD Date Time Electronically viewed and signed by .Danish Whelan MD, on 08/12/2016 14:19 .R/
[2016-08-12 16:35] LABS: ADD UMIC NO; UR ASCORBIC ACID NEGATIVE (NEGATIVE); UR BILIRUBIN (Dip) NEGATIVE (NEGATIVE); UR BLOOD (Dip) NEGATIVE (NEGATIVE); UR CLARITY CLEAR (CLEAR); UR COLOR YELLOW (YELLOW); UR GLUCOSE (Dip) NEGATIVE (NEGATIVE); UR KETONES (Dip) NEGATIVE (NEGATIVE); UR LEUKOCYTE ESTERASE (Dip) NEGATIVE Leu/ul (NEGATIVE); UR NITRITE (Dip) NEGATIVE (NEGATIVE); UR SPECIFIC GRAVITY (Dip) 1.012 (1.003-1.030); UR TOTAL PROTEIN (Dip) NEGATIVE (NEGATIVE); UR UROBILINOGEN (Dip) NEGATIVE (NEGATIVE)
--- NOTE | 2016-08-12 16:54 | PN ---
Date/Time of Note Date/Time of Note DATE: 08/12/16 TIME: 16:49 Assessment/Plan VTE Prophylaxis VTE Prophylaxis Intervention: SCD's Lines/Catheters IV C[facility]ter Type (from [facility]): PICC Line Central line still needed: Yes Urinary Cath still in place: No Reason Cath still needed: urinary retention Assessment/Plan Chief Complaint/Hosp Course Patient status post Lexiscan today, denies chest pain, afebrile, continues to have atrial fibrillation at controlled rate. ASSESSMENT AND PLAN: 1. Septic shock, resolving. Dr. Bustillo is following in infectious disease consultation. Continue antibiotics per ID. 2. New onset of atrial fibrillation. Dr. Encinas is following in cardiology consultation. The patient is currently on metoprolol, digoxin and aspirin. Continue Lovenox. 3. AIDS. The patient is restarted on antiviral therapy. 4. Acute kidney injury, resolved. Continue to monitor BUN and creatinine. 5. Right upper ureteral stone with mild hydronephrosis. Dr. Kim is following in urology consultation. 6. Noncompliance with HIV medication. Further recommendations based on clinical course. Plan of care discussed with Dr. Walden. Problems: Exam/Review of Systems Vital Signs Vitals Vital Signs Date Time Temp Pulse Resp B/P Pulse Ox O2 Delivery O2 Flow Rate FiO2 08/12/16 16:07 66 08/12/16 15:55 97.6 18 110/82 99 08/10/16 08:00 Room Air Intake and Output 08/11/16 08/11/16 08/12/16 15:00 23:00 07:00 Intake Total 250 ml 1680 ml Output Total 600 ml 700 ml Balance -350 ml 980 ml Exam Constitutional: alert, oriented Head: normocephalic Neck: supple Respiratory: normal air movement Cardiovascular: irregular rhythm Gastrointestinal: non-tender, soft Extremities: normal pulses Neurological: nl mental status Results Result Diagram: 08/12/16 0615 08/12/16 0615 Results 24 hrs Laboratory Tests Test 08/12/16 06:15 08/12/16 13:01 White Blood Count 4.9 Red Blood Count 4.89 Hemoglobin 14.1 Hematocrit 42.0 Mean Corpuscular Volume 85.9 Mean Corpuscular Hemoglobin 28.8 L Mean Corpuscular Hemoglobin Concent 33.6 Red Cell Distribution Width 14.3 Platelet Count 162 # Mean Platelet Volume 10.0 Neutrophils % 9.8 L Lymphocytes % 73.5 H Monocytes % 9.9 Eosinophils % 6.0 Basophils % 0.6 Nucleated Red Blood Cells % 0.0 Neutrophils # 0.5 L Lymphocytes # 3.6 H Monocytes # 0.5 Eosinophils # 0.3 Basophils # 0.0 Nucleated Red Blood Cells # 0.0 Sodium Level 135 Potassium Level 4.3 Chloride Level 106 Carbon Dioxide Level 23 Anion Gap 10 Blood Urea Nitrogen 10 Creatinine 0.80 Glucose Level 90 Calcium Level 9.0 Urine Color YELLOW Urine Clarity CLEAR Urine pH 7.0 Urine Specific [place] 1.012 Urine Ketones NEGATIVE Urine Nitrite NEGATIVE Urine Bilirubin NEGATIVE Urine Urobilinogen NEGATIVE Urine Leukocyte Esterase NEGATIVE Urine Hemoglobin NEGATIVE Urine Glucose NEGATIVE Urine Total Protein NEGATIVE Medications Medications Current Medications Trimethoprim/ Sulfamethoxazole (Bactrim (Ds)) 1 tab MoWeFr PO Last administered on 08/10/16 22:48; Admin Dose 1 TAB; Start 08/08/16 at 21:30 Azithromycin (Zithromax) 1,200 mg Q7D PO Last administered on 08/06/16 21:30; Admin Dose 1,200 MG; Start 08/06/16 at 21:30 Acetaminophen (Tylenol Tab) 650 mg Q4H PRN PO PAIN AND OR ELEVATED TEMP; Start 08/07/16 at 08:00 Diltiazem HCl (Cardizem Iv) 10 mg Q1H PRN IV HR GREATER THAN 110; Start at 08:00 Morphine Sulfate (morphine) 2 mg Q4H PRN IV PAIN LEVEL 4-7 Last administered on 08/12/16 06:11; Admin Dose 2 MG; Start 08/07/16 at 08:00 Ondansetron HCl (Zofran Inj) 4 mg Q4H PRN IV NAUSEA AND/OR VOMITING Last administered on 08/12/16 09:33; Admin Dose 4 MG; Start 08/07/16 at 08:00 Darunavir (Prezista) 800 mg DAILY PO Last administered on 08/12/16 13:18; Admin Dose 800 MG; Start 08/07/16 at 10:00 Elvitegravir/ Cobicis/Emtricit/ Tenof (Stribild Tablet) 1 each DAILY PO Last administered on 08/12/16 13:23; Admin Dose 1 EACH; Start 08/07/16 at 10:00 Digoxin (Digoxin) 0.125 mg DAILY@13 PO Last administered on 08/12/16 13:19; Admin Dose 0.125 MG; Start 08/07/16 at 13:00 IV Flush (NS 10 ml) 10 ml PRN PRN IV flush; Start 08/07/16 at 12:00 Metoprolol Succinate (Toprol Xl) 25 mg BID PO Last administered on 08/12/16 13 :22; Admin Dose 25 MG; Start 08/07/16 at 13:00 Enoxaparin Sodium (Lovenox) 95 mg Q12 SC Last administered on 08/12/16 13:21; Admin Dose 95 MG; Start 08/08/16 at 21:00 Aspirin 81 mg 81 mg DAILY PO Last administered on 08/12/16 13:19; Admin Dose 81 MG; Start 08/09/16 at 09:00 Potassium Chloride/Sodium Chloride (1/2 NS + KCl 20 Meq) 1,000 ml @ 70 mls/hr [id number] IV Last administered on 08/12/16 02:02; Admin Dose 70 MLS/HR; Start at 15:30 Levofloxacin (Levaquin) 500 mg DAILY@06 PO Last administered on 08/12/16 05:57 ; Admin Dose 500 MG; Start 08/12/16 at 06:00 AAKASH MITCHELL Aug 12, 2016 16:54
--- NOTE | 2016-08-12 17:00 | CONS ---
Date/Time of Note Date/Time of Note DATE: 08/12/16 TIME: 16:58 Assessment/Plan Assessment/Plan Additional Assessment/Plan 1. Acute kidney injury, multifactorial secondary to prerenal azotemia, decreased perfusion in the setting of atrial fibrillation, possibly secondary to mild right hydronephrosis secondary to nephrolithiasis. 2. Mild right hydronephrosis secondary to right proximal ureteral kidney stone. 3. Hyponatremia secondary to hypovolemic hyponatremia. 4. History of human immunodeficiency virus, does not know last CD4 count. 5. Atrial fibrillation with rapid ventricular rate. 6. Hypertension. PLAN: Electrolytes stable today, D/c IV Fluid 1/2NS Cr normal today HIV meds and Prophylaxis as per ID will follow up Consultation Date/Type/Reason Admit Date/Time Aug 05, 2016 at 20:09 Initial Consult Date 08/06/16 Type of Consultation: NEPHROLOGY Referring Provider: MAXIME MCKEON 24 HR Interval Summary Free Text/Dictation [place], BP stable, Exam/Review of Systems Vital Signs Vitals Vital Signs Date Time Temp Pulse Resp B/P Pulse Ox O2 Delivery O2 Flow Rate FiO2 08/12/16 16:07 66 08/12/16 15:55 97.6 18 110/82 99 08/10/16 08:00 Room Air Intake and Output 08/11/16 08/11/16 08/12/16 15:00 23:00 07:00 Intake Total 250 ml 1680 ml Output Total 600 ml 700 ml Balance -350 ml 980 ml Exam GENERAL: awake, alert HEENT: LORIN< EOMI NECK: Supple, no JVD, no lymphadenopathy. LUNGS: Clear to auscultation. Decreased breath sounds at both lung bases. HEART: S1, S2, with regular rhythm, no murmur. ABDOMEN: Soft, NT, ND, BS+ EXTREMITIES: No clubbing, cyanosis, edema. NEUROLOGICAL: Nonfocal, intact. Results Result Diagram: 08/12/16 0615 08/12/16 0615 Results 24 hrs Laboratory Tests Test 08/12/16 06:15 08/12/16 13:01 White Blood Count 4.9 Red Blood Count 4.89 Hemoglobin 14.1 Hematocrit 42.0 Mean Corpuscular Volume 85.9 Mean Corpuscular Hemoglobin 28.8 L Mean Corpuscular Hemoglobin Concent 33.6 Red Cell Distribution Width 14.3 Platelet Count 162 # Mean Platelet Volume 10.0 Neutrophils % 9.8 L Lymphocytes % 73.5 H Monocytes % 9.9 Eosinophils % 6.0 Basophils % 0.6 Nucleated Red Blood Cells % 0.0 Neutrophils # 0.5 L Lymphocytes # 3.6 H Monocytes # 0.5 Eosinophils # 0.3 Basophils # 0.0 Nucleated Red Blood Cells # 0.0 Sodium Level 135 Potassium Level 4.3 Chloride Level 106 Carbon Dioxide Level 23 Anion Gap 10 Blood Urea Nitrogen 10 Creatinine 0.80 Glucose Level 90 Calcium Level 9.0 Urine Color YELLOW Urine Clarity CLEAR Urine pH 7.0 Urine Specific [place] 1.012 Urine Ketones NEGATIVE Urine Nitrite NEGATIVE Urine Bilirubin NEGATIVE Urine Urobilinogen NEGATIVE Urine Leukocyte Esterase NEGATIVE Urine Hemoglobin NEGATIVE Urine Glucose NEGATIVE Urine Total Protein NEGATIVE Medications Medications Current Medications Trimethoprim/ Sulfamethoxazole (Bactrim (Ds)) 1 tab MoWeFr PO Last administered on 08/10/16 22:48; Admin Dose 1 TAB; Start 08/08/16 at 21:30 Azithromycin (Zithromax) 1,200 mg Q7D PO Last administered on 08/06/16 21:30; Admin Dose 1,200 MG; Start 08/06/16 at 21:30 Acetaminophen (Tylenol Tab) 650 mg Q4H PRN PO PAIN AND OR ELEVATED TEMP; Start 08/07/16 at 08:00 Diltiazem HCl (Cardizem Iv) 10 mg Q1H PRN IV HR GREATER THAN 110; Start at 08:00 Morphine Sulfate (morphine) 2 mg Q4H PRN IV PAIN LEVEL 4-7 Last administered on 08/12/16 06:11; Admin Dose 2 MG; Start 08/07/16 at 08:00 Ondansetron HCl (Zofran Inj) 4 mg Q4H PRN IV NAUSEA AND/OR VOMITING Last administered on 08/12/16 09:33; Admin Dose 4 MG; Start 08/07/16 at 08:00 Darunavir (Prezista) 800 mg DAILY PO Last administered on 08/12/16 13:18; Admin Dose 800 MG; Start 08/07/16 at 10:00 Elvitegravir/ Cobicis/Emtricit/ Tenof (Stribild Tablet) 1 each DAILY PO Last administered on 08/12/16 13:23; Admin Dose 1 EACH; Start 08/07/16 at 10:00 Digoxin (Digoxin) 0.125 mg DAILY@13 PO Last administered on 08/12/16 13:19; Admin Dose 0.125 MG; Start 08/07/16 at 13:00 IV Flush (NS 10 ml) 10 ml PRN PRN IV flush; Start 08/07/16 at 12:00 Metoprolol Succinate (Toprol Xl) 25 mg BID PO Last administered on 08/12/16 13 :22; Admin Dose 25 MG; Start 08/07/16 at 13:00 Enoxaparin Sodium (Lovenox) 95 mg Q12 SC Last administered on 08/12/16 13:21; Admin Dose 95 MG; Start 08/08/16 at 21:00 Aspirin 81 mg 81 mg DAILY PO Last administered on 08/12/16 13:19; Admin Dose 81 MG; Start 08/09/16 at 09:00 Potassium Chloride/Sodium Chloride (1/2 NS + KCl 20 Meq) 1,000 ml @ 70 mls/hr [id number] IV Last administered on 08/12/16 02:02; Admin Dose 70 MLS/HR; Start at 15:30 Levofloxacin (Levaquin) 500 mg DAILY@06 PO Last administered on 08/12/16 05:57 ; Admin Dose 500 MG; Start 08/12/16 at 06:00 SWATI VALIENTE MD Aug 12, 2016 17:00
[2016-08-12] MEDS: TRIMETHOPRIM/SULFAMETHOX (DS) TAB PO SCH (23:10)
[2016-08-13] VITALS (14 sets, daily range): BP systolic 99–139; BP diastolic 64–87; PULSE 61–160; RESP 16–20
[2016-08-13] MEDS: LEVOFLOXACIN 500 MG TAB PO SCH (06:14)
[2016-08-13 07:56] LABS: ADD SCAN DIFF NO
[2016-08-13 08:05] LABS: ABNORMAL IP MESSAGE 1; BASOPHILS % 0.2 % (0.0-2.0); EOSINOPHILS # 0.2 10^3/ul (0.0-0.5); EOSINOPHILS % 4.3 % (0.0-7.0); HEMATOCRIT 41.6 % (42.0-52.0); HEMOGLOBIN 14.2 g/dl (14.0-18.0); LYMPHOCYTES # 2.7 10^3/ul (0.8-2.9); MEAN CORPUSCULAR HEMOGLOBIN 29.5 pg (29.0-33.0); MEAN CORPUSCULAR HGB CONC 34.1 g/dl (32.0-37.0); MEAN CORPUSCULAR VOLUME 86.3 fl (82.0-101.0); MEAN PLATELET VOLUME 10.3 fl (7.4-10.4); MONOCYTE # 0.5 10^3/ul (0.3-0.9); MONOCYTES % 11.6 % (0.0-11.0); NEUTROPHIL # 0.8 10^3/ul (1.6-7.5); NEUTROPHILS % 19.2 % (39.0-77.0); PLATELET COUNT 196 10^3/UL (140-415); RED BLOOD COUNT 4.82 10^6/ul (4.70-6.10); RED CELL DISTRIBUTION WIDTH 14.3 % (11.5-14.5); WHITE BLOOD COUNT 4.2 10^3/ul (4.8-10.8)
[2016-08-13 08:21] LABS: CREATININE 0.86 mg/dl (0.61-1.24); POTASSIUM 4.3 mmol/L (3.5-5.1)
[2016-08-13] MEDS: DARUNAVIR ETHANOLATE 800 MG TABLET PO SCH (08:31)
[2016-08-13] MEDS: ELVITEGR/COBICIST/EMTRIC/TENOF 1 EACH TABLET PO SCH (08:31)
[2016-08-13] MEDS: ASPIRIN 81 MG TAB PO SCH (08:31)
[2016-08-13] MEDS: METOPROLOL (XL) 25 MG TAB PO SCH ×2 (08:32→20:42)
[2016-08-13] MEDS: ENOXAPARIN 100 MG/ML SYG SC SCH ×2 (08:37→20:44)
--- NOTE | 2016-08-13 12:40 | PN ---
DATE: 08/13/2016 SUBJECTIVE: The patient has a right upper ureteral stone on admission that was causing hydronephros is; however, the patient has been feeling comfortable and had no pain. Therefore, I ordered a CT sc an on him to be done yesterday and indeed the CT scan now showed that the stone has gone back into t he kidney and it is located now in the lower part of the right kidney and there is no more obstructi on. The patient himself this morning stated that he is comfortable and has no pain and he is voidin g well. OBJECTIVE: VITAL SIGNS: Temperature is 97.2, pulse 71, respirations 19, blood pressure 99/70. ABDOMEN: Soft. There is no flank tenderness. LABORATORY DATA: CBC shows a white count of 4.2, hemoglobin 14.2, hematocrit 41.6. BUN is 13, crea tinine is 0.86. Urinalysis yesterday was completely negative. IMPRESSION: Right upper ureteral stone that has moved into the lower pole of the right kidney and i s no longer obstructing. RECOMMENDATION: From a urological standpoint, no need for any surgical intervention or treatment of the stone at the present. Dictated By: MAN CUTLER/VINCE Conf#: [id number] DID#: [id number]
[2016-08-13] MEDS: DIGOXIN 0.125 MG TAB PO SCH (12:49)
--- NOTE | 2016-08-13 12:57 | CONS ---
Date/Time of Note Date/Time of Note DATE: 08/13/16 TIME: 12:55 Assessment/Plan Assessment/Plan Additional Assessment/Plan 1.AF/AFL-rate controlled - in good rate control now 2.HIV - primary follows 3.Renal insuff- chronic, avoid nephrotoxic meds 4. Leukopenia - with HIV. 5. Obstructive uropathy- stable 6. Hepatic steatosis. 7. Inguinal hernia. 8. Hyponatremia. 9. Positive troponin-now trended negative/NL EF by echo this admit. Likley type 2 infarct. NO chest pain at this time - STRESS TEST - small defect, mostly fixed - med rx now. Consultation Date/Type/Reason Admit Date/Time Aug 05, 2016 at 20:09 Initial Consult Date 08/06/16 Type of Consultation: NEPHROLOGY Referring Provider: MAXIME MCKEON 24 HR Interval Summary Free Text/Dictation Stress test showed small defect, mostly fixed - med rx now. NO CP now. Rate controlled. ROS: No fever, no chills, no nausea, no vomiting, no diarrhea/constipation No recent weight changes No chest pain, no PND, no orthopnea No dizziness, blurred vision No thirst, no heat or cold intolerance Exam/Review of Systems Vital Signs Vitals Vital Signs Date Time Temp Pulse Resp B/P Pulse Ox O2 Delivery O2 Flow Rate FiO2 08/13/16 12:07 65 08/13/16 11:35 97.2 19 99/70 99 08/10/16 08:00 Room Air Intake and Output 08/12/16 08/12/16 08/13/16 15:00 23:00 07:00 Intake Total 500 ml 600 ml Output Total 900 ml 750 ml Balance -400 ml -150 ml Exam General: WN/WD/NAD, AOx 3 HEENT: Unicetric/atraumatic/EOMI (follow commands) NECK: JVD elevated, no thyromegaly Lymph: no lymphadenopathy HEART: Ir Irregular with no S3, II/ systolic murmur at apex LUNGS: Coarse sounds ABD: soft, NT, ND, +BS : Intact Neuro: non focal SKIN: chronic changes EXT: trace edema Results Result Diagram: 08/13/16 0700 08/13/16 0702 Results 24 hrs Laboratory Tests Test 08/12/16 13:01 08/13/16 07:00 08/13/16 07:02 Urine Color YELLOW Urine Clarity CLEAR Urine pH 7.0 Urine Specific [place] 1.012 Urine Ketones NEGATIVE Urine Nitrite NEGATIVE Urine Bilirubin NEGATIVE Urine Urobilinogen NEGATIVE Urine Leukocyte Esterase NEGATIVE Urine Hemoglobin NEGATIVE Urine Glucose NEGATIVE Urine Total Protein NEGATIVE White Blood Count 4.2 L Red Blood Count 4.82 Hemoglobin 14.2 Hematocrit 41.6 L Mean Corpuscular Volume 86.3 Mean Corpuscular Hemoglobin 29.5 Mean Corpuscular Hemoglobin Concent 34.1 Red Cell Distribution Width 14.3 Platelet Count 196 # Mean Platelet Volume 10.3 Neutrophils % 19.2 L Lymphocytes % 64.0 H Monocytes % 11.6 H Eosinophils % 4.3 Basophils % 0.2 Nucleated Red Blood Cells % 0.0 Neutrophils # 0.8 L Lymphocytes # 2.7 Monocytes # 0.5 Eosinophils # 0.2 Basophils # 0.0 Nucleated Red Blood Cells # 0.0 Sodium Level 134 L Potassium Level 4.3 Chloride Level 104 Carbon Dioxide Level 24 Anion Gap 10 Blood Urea Nitrogen 13 Creatinine 0.86 Glucose Level 99 Calcium Level 9.0 Medications Medications Current Medications Trimethoprim/ Sulfamethoxazole (Bactrim (Ds)) 1 tab MoWeFr PO Last administered on 08/12/16 23:10; Admin Dose 1 TAB; Start 08/08/16 at 21:30 Azithromycin (Zithromax) 1,200 mg Q7D PO Last administered on 08/06/16 21:30; Admin Dose 1,200 MG; Start 08/06/16 at 21:30 Acetaminophen (Tylenol Tab) 650 mg Q4H PRN PO PAIN AND OR ELEVATED TEMP; Start 08/07/16 at 08:00 Diltiazem HCl (Cardizem Iv) 10 mg Q1H PRN IV HR GREATER THAN 110; Start at 08:00 Morphine Sulfate (morphine) 2 mg Q4H PRN IV PAIN LEVEL 4-7 Last administered on 08/12/16 23:10; Admin Dose 2 MG; Start 08/07/16 at 08:00 Ondansetron HCl (Zofran Inj) 4 mg Q4H PRN IV NAUSEA AND/OR VOMITING Last administered on 08/12/16 09:33; Admin Dose 4 MG; Start 08/07/16 at 08:00 Darunavir (Prezista) 800 mg DAILY PO Last administered on 08/13/16 08:31; Admin Dose 800 MG; Start 08/07/16 at 10:00 Elvitegravir/ Cobicis/Emtricit/ Tenof (Stribild Tablet) 1 each DAILY PO Last administered on 08/13/16 08:31; Admin Dose 1 EACH; Start 08/07/16 at 10:00 Digoxin (Digoxin) 0.125 mg DAILY@13 PO Last administered on 08/13/16 12:49; Admin Dose 0.125 MG; Start 08/07/16 at 13:00 IV Flush (NS 10 ml) 10 ml PRN PRN IV flush; Start 08/07/16 at 12:00 Metoprolol Succinate (Toprol Xl) 25 mg BID PO Last administered on 08/13/16 08 :32; Admin Dose 25 MG; Start 08/07/16 at 13:00 Enoxaparin Sodium (Lovenox) 95 mg Q12 SC Last administered on 08/13/16 08:37; Admin Dose 95 MG; Start 08/08/16 at 21:00 Aspirin (Aspirin) 81 mg DAILY PO Last administered on 08/13/16 08:31; Admin Dose 81 MG; Start 08/09/16 at 09:00 Levofloxacin (Levaquin) 500 mg DAILY@06 PO Last administered on 08/13/16 06:14 ; Admin Dose 500 MG; Start 08/12/16 at 06:00 SALMA PUCKETT MD Aug 13, 2016 12:57
--- NOTE | 2016-08-13 13:00 | PN ---
Date/Time of Note Date/Time of Note DATE: 08/13/16 TIME: 12:59 Assessment/Plan VTE Prophylaxis VTE Prophylaxis Intervention: other Lines/Catheters [facility]from [facility] P[facility] Line Central line still needed: Yes Urinary Cath still in place: No Assessment/Plan Chief Complaint/Hosp Course 1. Septic shock, resolving. Dr. Bustillo is following in infectious disease consultation. Continue antibiotics per ID. 2. New onset of atrial fibrillation. Dr. Encinas is following in cardiology consultation. The patient is currently on metoprolol, digoxin and aspirin. Continue Lovenox. 3. AIDS. The patient is restarted on antiviral therapy. 4. Acute kidney injury, resolved. Continue to monitor BUN and creatinine. 5. Right upper ureteral stone with mild hydronephrosis. Dr. Kim is following in urology consultation. 6. Noncompliance with HIV medication. Problems: Subjective 24 Hr Interval Summary Free Text/Dictation Patient has no complaints Exam/Review of Systems Vital Signs Vitals Vital Signs Date Time Temp Pulse Resp B/P Pulse Ox O2 Delivery O2 Flow Rate FiO2 08/13/16 12:07 65 08/13/16 11:35 97.2 19 99/70 99 08/10/16 08:00 Room Air Intake and Output 08/12/16 08/12/16 08/13/16 15:00 23:00 07:00 Intake Total 500 ml 600 ml Output Total 900 ml 750 ml Balance -400 ml -150 ml Exam Constitutional: well developed Head: atraumatic, normocephalic Neck: supple Respiratory: diminished breath sounds Cardiovascular: regular rate and rhythm Gastrointestinal: non-tender, soft Extremities: normal pulses Results Result Diagram: 08/13/16 0700 08/13/16 0702 Results 24 hrs Laboratory Tests Test 08/12/16 13:01 08/13/16 07:00 08/13/16 07:02 Urine Color YELLOW Urine Clarity CLEAR Urine pH 7.0 Urine Specific [place] 1.012 Urine Ketones NEGATIVE Urine Nitrite NEGATIVE Urine Bilirubin NEGATIVE Urine Urobilinogen NEGATIVE Urine Leukocyte Esterase NEGATIVE Urine Hemoglobin NEGATIVE Urine Glucose NEGATIVE Urine Total Protein NEGATIVE White Blood Count 4.2 L Red Blood Count 4.82 Hemoglobin 14.2 Hematocrit 41.6 L Mean Corpuscular Volume 86.3 Mean Corpuscular Hemoglobin 29.5 Mean Corpuscular Hemoglobin Concent 34.1 Red Cell Distribution Width 14.3 Platelet Count 196 # Mean Platelet Volume 10.3 Neutrophils % 19.2 L Lymphocytes % 64.0 H Monocytes % 11.6 H Eosinophils % 4.3 Basophils % 0.2 Nucleated Red Blood Cells % 0.0 Neutrophils # 0.8 L Lymphocytes # 2.7 Monocytes # 0.5 Eosinophils # 0.2 Basophils # 0.0 Nucleated Red Blood Cells # 0.0 Sodium Level 134 L Potassium Level 4.3 Chloride Level 104 Carbon Dioxide Level 24 Anion Gap 10 Blood Urea Nitrogen 13 Creatinine 0.86 Glucose Level 99 Calcium Level 9.0 Medications Medications Current Medications Trimethoprim/ Sulfamethoxazole (Bactrim (Ds)) 1 tab MoWeFr PO Last administered on 08/12/16 23:10; Admin Dose 1 TAB; Start 08/08/16 at 21:30 Azithromycin (Zithromax) 1,200 mg Q7D PO Last administered on 08/06/16 21:30; Admin Dose 1,200 MG; Start 08/06/16 at 21:30 Acetaminophen (Tylenol Tab) 650 mg Q4H PRN PO PAIN AND OR ELEVATED TEMP; Start 08/07/16 at 08:00 Diltiazem HCl (Cardizem Iv) 10 mg Q1H PRN IV HR GREATER THAN 110; Start at 08:00 Morphine Sulfate (morphine) 2 mg Q4H PRN IV PAIN LEVEL 4-7 Last administered on 08/12/16 23:10; Admin Dose 2 MG; Start 08/07/16 at 08:00 Ondansetron HCl (Zofran Inj) 4 mg Q4H PRN IV NAUSEA AND/OR VOMITING Last administered on 08/12/16 09:33; Admin Dose 4 MG; Start 08/07/16 at 08:00 Darunavir (Prezista) 800 mg DAILY PO Last administered on 08/13/16 08:31; Admin Dose 800 MG; Start 08/07/16 at 10:00 Elvitegravir/ Cobicis/Emtricit/ Tenof (Stribild Tablet) 1 each DAILY PO Last administered on 08/13/16 08:31; Admin Dose 1 EACH; Start 08/07/16 at 10:00 Digoxin (Digoxin) 0.125 mg DAILY@13 PO Last administered on 6/24/17at 12:49; Admin Dose 0.125 MG; Start 08/07/16 at 13:00 IV Flush (NS 10 ml) 10 ml PRN PRN IV flush; Start 08/07/16 at 12:00 Metoprolol Succinate (Toprol Xl) 25 mg BID PO Last administered on 08/13/16 08 :32; Admin Dose 25 MG; Start 08/07/16 at 13:00 Enoxaparin Sodium (Lovenox) 95 mg Q12 SC Last administered on 08/13/16 08:37; Admin Dose 95 MG; Start 08/08/16 at 21:00 Aspirin (Aspirin) 81 mg DAILY PO Last administered on 08/13/16 08:31; Admin Dose 81 MG; Start 08/09/16 at 09:00 Levofloxacin (Levaquin) 500 mg DAILY@06 PO Last administered on 08/13/16 06:14 ; Admin Dose 500 MG; Start 08/12/16 at 06:00 MARIO CARTWRIGHT Aug 13, 2016 12:59
--- NOTE | 2016-08-13 13:06 | CONS ---
Date/Time of Note Date/Time of Note DATE: 08/13/16 TIME: 13:04 Assessment/Plan Assessment/Plan Additional Assessment/Plan 1. Acute kidney injury, multifactorial secondary to prerenal azotemia, decreased perfusion in the setting of atrial fibrillation, possibly secondary to mild right hydronephrosis secondary to nephrolithiasis. 2. Mild right hydronephrosis secondary to right proximal ureteral kidney stone. 3. Hyponatremia secondary to hypovolemic hyponatremia. 4. History of human immunodeficiency virus, does not know last CD4 count. 5. Atrial fibrillation with rapid ventricular rate. 6. Hypertension. PLAN: Na 134, off IV fluids Cr normal today HIV meds and Prophylaxis as per ID will follow up Consultation Date/Type/Reason Admit Date/Time Aug 05, 2016 at 20:09 Initial Consult Date 08/06/16 Type of Consultation: NEPHROLOGY Referring Provider: MAXIME MCKEON 24 HR Interval Summary Free Text/Dictation Na 134, BP stable Exam/Review of Systems Vital Signs Vitals Vital Signs Date Time Temp Pulse Resp B/P Pulse Ox O2 Delivery O2 Flow Rate FiO2 08/13/16 12:07 65 08/13/16 11:35 97.2 19 99/70 99 08/10/16 08:00 Room Air Intake and Output 08/12/16 08/12/16 08/13/16 15:00 23:00 07:00 Intake Total 500 ml 600 ml Output Total 900 ml 750 ml Balance -400 ml -150 ml Exam GENERAL: awake, alert HEENT: LORIN< EOMI NECK: Supple, no JVD, no lymphadenopathy. LUNGS: Clear to auscultation. Decreased breath sounds at both lung bases. HEART: S1, S2, with regular rhythm, no murmur. ABDOMEN: Soft, NT, ND, BS+ EXTREMITIES: No clubbing, cyanosis, edema. NEUROLOGICAL: Nonfocal, intact. Results Result Diagram: 08/13/16 0700 08/13/16 0702 Results 24 hrs Laboratory Tests Test 08/13/16 07:00 08/13/16 07:02 White Blood Count 4.2 L Red Blood Count 4.82 Hemoglobin 14.2 Hematocrit 41.6 L Mean Corpuscular Volume 86.3 Mean Corpuscular Hemoglobin 29.5 Mean Corpuscular Hemoglobin Concent 34.1 Red Cell Distribution Width 14.3 Platelet Count 196 # Mean Platelet Volume 10.3 Neutrophils % 19.2 L Lymphocytes % 64.0 H Monocytes % 11.6 H Eosinophils % 4.3 Basophils % 0.2 Nucleated Red Blood Cells % 0.0 Neutrophils # 0.8 L Lymphocytes # 2.7 Monocytes # 0.5 Eosinophils # 0.2 Basophils # 0.0 Nucleated Red Blood Cells # 0.0 Sodium Level 134 L Potassium Level 4.3 Chloride Level 104 Carbon Dioxide Level 24 Anion Gap 10 Blood Urea Nitrogen 13 Creatinine 0.86 Glucose Level 99 Calcium Level 9.0 Medications Medications Current Medications Trimethoprim/ Sulfamethoxazole (Bactrim (Ds)) 1 tab MoWeFr PO Last administered on 08/12/16 23:10; Admin Dose 1 TAB; Start 08/08/16 at 21:30 Azithromycin (Zithromax) 1,200 mg Q7D PO Last administered on 08/06/16 21:30; Admin Dose 1,200 MG; Start 08/06/16 at 21:30 Acetaminophen (Tylenol Tab) 650 mg Q4H PRN PO PAIN AND OR ELEVATED TEMP; Start 08/07/16 at 08:00 Diltiazem HCl (Cardizem Iv) 10 mg Q1H PRN IV HR GREATER THAN 110; Start at 08:00 Morphine Sulfate (morphine) 2 mg Q4H PRN IV PAIN LEVEL 4-7 Last administered on 08/12/16 23:10; Admin Dose 2 MG; Start 08/07/16 at 08:00 Ondansetron HCl (Zofran Inj) 4 mg Q4H PRN IV NAUSEA AND/OR VOMITING Last administered on 08/12/16 09:33; Admin Dose 4 MG; Start 08/07/16 at 08:00 Darunavir (Prezista) 800 mg DAILY PO Last administered on 08/13/16 08:31; Admin Dose 800 MG; Start 08/07/16 at 10:00 Elvitegravir/ Cobicis/Emtricit/ Tenof (Stribild Tablet) 1 each DAILY PO Last administered on 08/13/16 08:31; Admin Dose 1 EACH; Start 08/07/16 at 10:00 Digoxin (Digoxin) 0.125 mg DAILY@13 PO Last administered on 08/13/16 12:49; Admin Dose 0.125 MG; Start 08/07/16 at 13:00 IV Flush (NS 10 ml) 10 ml PRN PRN IV flush; Start 08/07/16 at 12:00 Metoprolol Succinate (Toprol Xl) 25 mg BID PO Last administered on 08/13/16 08 :32; Admin Dose 25 MG; Start 08/07/16 at 13:00 Enoxaparin Sodium (Lovenox) 95 mg Q12 SC Last administered on 08/13/16 08:37; Admin Dose 95 MG; Start 08/08/16 at 21:00 Aspirin (Aspirin) 81 mg DAILY PO Last administered on 08/13/16 08:31; Admin Dose 81 MG; Start 08/09/16 at 09:00 Levofloxacin (Levaquin) 500 mg DAILY@06 PO Last administered on 08/13/16 06:14 ; Admin Dose 500 MG; Start 08/12/16 at 06:00 SWATI VALIENTE MD Aug 13, 2016 13:05
--- NOTE | 2016-08-13 17:47 | CONS ---
Date/Time of Note Date/Time of Note DATE: 08/13/16 TIME: 17:44 Assessment/Plan Assessment/Plan Chief Complaint/Hosp Course assessment/impression - septic shock, unclear etiology. 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 The sensitivity result was canned on 06/23/2016. Pt took imipenem and aztreonam around that time (his strain of moraxella was sensitive to both in vitro). Subsequent blood cultures were negative. - h/o recurrent neutropenic fever, infectious process vs. immune reconstitution inflammatory response. WBC tagged scan negative from 05/12/2016 - advanced AIDS with CD4<20 GNR=943,120 copies (CD4<20, viral load 166,544 copies in 04/21/2016 & repeat CD4 37 on 05/07/2016) was non-compliant with medications. Restarted on Stribild and darunavir on 04/23/2016; however, likely stopped after the last admission because his viral load is very high and CD4 count is very low. Genotype on 04/20/2016 showed a wild type virus without baseline mutations. - h/o neutropenia s/p BMBx, no e/o infections or malignancy at this time. CMV IHC negative, CMV PCR in serum was <200, cocci and crypto negative, QTB gold negative - h/o L cervical and supraclavicular lymphadenopathy s/p excisional Bx in 04/2016 : Dr. 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 He recommended the patient receive anti retroviral therapy that should be closely monitored since there is a high incidence of evolution to an overt lymphoma. This was discussed with Pt - h/o cough in 03/2016. CXR showed overinflated lungs, CT showed benign appearing sub-centimeter nodule seen at the bilateral lung bases - LUE weakness and pain due to tear of rotator cuff muscles and bicep tendon anchor (shown on MRI) - h/o thrush, resolved - hyperpigmented lesions on b/l LE x several months according to Pt - h/o pruritis, probably due to atovaquone. 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 Pt does not want the other family members to know his HIV+ status Management d/w patient, RN Chelsie, and Dr. Narayanan Problems: Consultation Date/Type/Reason Admit Date/Time Aug 05, 2016 at 20:09 Initial Consult Date 08/06/16 Type of Consultation: Infectious Disease Referring Provider: MAXIME MCKEON 24 HR Interval Summary Free Text/Dictation Anxious to go home. States "Why do I still have to be here if I can take my own medication at my home?" Does not like hospital food. "I haven't eaten in three days because I can't stand the food here." Has chronic left arm pain. No other complaints. Exam/Review of Systems Vital Signs Vitals Vital Signs Date Time Temp Pulse Resp B/P Pulse Ox O2 Delivery O2 Flow Rate FiO2 08/13/16 16:01 70 08/13/16 16:00 98.4 20 110/87 98 08/10/16 08:00 Room Air Intake and Output 08/12/16 08/12/16 08/13/16 15:00 23:00 07:00 Intake Total 500 ml 600 ml Output Total 900 ml 750 ml Balance -400 ml -150 ml Exam Constitutional: alert, oriented, well developed Head: atraumatic, normocephalic Eyes: nl conjunctiva, nl lids Neck: supple Respiratory: clear to auscultation, normal air movement Cardiovascular: nl pulses, regular rate and rhythm Musculoskeletal: muscle weakness (LUE (chronic)) Extremities: No edema Neurological: nl mental status, nl speech, COATS with LUE chronic weakness Skin: other (macules on b/l LE) Results Result Diagram: 08/13/16 0700 08/13/16 0702 Results 24 hrs Laboratory Tests Test 08/13/16 07:00 08/13/16 07:02 White Blood Count 4.2 L Red Blood Count 4.82 Hemoglobin 14.2 Hematocrit 41.6 L Mean Corpuscular Volume 86.3 Mean Corpuscular Hemoglobin 29.5 Mean Corpuscular Hemoglobin Concent 34.1 Red Cell Distribution Width 14.3 Platelet Count 196 # Mean Platelet Volume 10.3 Neutrophils % 19.2 L Lymphocytes % 64.0 H Monocytes % 11.6 H Eosinophils % 4.3 Basophils % 0.2 Nucleated Red Blood Cells % 0.0 Neutrophils # 0.8 L Lymphocytes # 2.7 Monocytes # 0.5 Eosinophils # 0.2 Basophils # 0.0 Nucleated Red Blood Cells # 0.0 Sodium Level 134 L Potassium Level 4.3 Chloride Level 104 Carbon Dioxide Level 24 Anion Gap 10 Blood Urea Nitrogen 13 Creatinine 0.86 Glucose Level 99 Calcium Level 9.0 Medications Medications Current Medications Trimethoprim/ Sulfamethoxazole (Bactrim (Ds)) 1 tab MoWeFr PO Last administered on 08/12/16 23:10; Admin Dose 1 TAB; Start 08/08/16 at 21:30 Azithromycin (Zithromax) 1,200 mg Q7D PO Last administered on 08/06/16 21:30; Admin Dose 1,200 MG; Start 08/06/16 at 21:30 Acetaminophen (Tylenol Tab) 650 mg Q4H PRN PO PAIN AND OR ELEVATED TEMP; Start 08/07/16 at 08:00 Diltiazem HCl (Cardizem Iv) 10 mg Q1H PRN IV HR GREATER THAN 110; Start at 08:00 Morphine Sulfate (morphine) 2 mg Q4H PRN IV PAIN LEVEL 4-7 Last administered on 08/12/16 23:10; Admin Dose 2 MG; Start 08/07/16 at 08:00 Ondansetron HCl (Zofran Inj) 4 mg Q4H PRN IV NAUSEA AND/OR VOMITING Last administered on 08/12/16 09:33; Admin Dose 4 MG; Start 08/07/16 at 08:00 Darunavir (Prezista) 800 mg DAILY PO Last administered on 08/13/16 08:31; Admin Dose 800 MG; Start 08/07/16 at 10:00 Elvitegravir/ Cobicis/Emtricit/ Tenof (Stribild Tablet) 1 each DAILY PO Last administered on 08/13/16 08:31; Admin Dose 1 EACH; Start 08/07/16 at 10:00 Digoxin (Digoxin) 0.125 mg DAILY@13 PO Last administered on 08/13/16 12:49; Admin Dose 0.125 MG; Start 08/07/16 at 13:00 IV Flush (NS 10 ml) 10 ml PRN PRN IV flush; Start 08/07/16 at 12:00 Metoprolol Succinate (Toprol Xl) 25 mg BID PO Last administered on 08/13/16 08 :32; Admin Dose 25 MG; Start 08/07/16 at 13:00 Enoxaparin Sodium (Lovenox) 95 mg Q12 SC Last administered on 08/13/16 08:37; Admin Dose 95 MG; Start 08/08/16 at 21:00 Aspirin (Aspirin) 81 mg DAILY PO Last administered on 08/13/16 08:31; Admin Dose 81 MG; Start 08/09/16 at 09:00 Levofloxacin (Levaquin) 500 mg DAILY@06 PO Last administered on 08/13/16 06:14 ; Admin Dose 500 MG; Start 08/12/16 at 06:00 AVERY SHAHID NP Aug 13, 2016 17:46
[2016-08-13] MEDS: AZITHROMYCIN 600 MG TAB PO SCH (20:42)
[2016-08-13] MEDS: morphine 2 MG INJ IV PRN (22:18)
[2016-08-14] VITALS (11 sets, daily range): BP systolic 94–118; BP diastolic 64–75; PULSE 51–74; RESP 18–20
[2016-08-14] MEDS: LEVOFLOXACIN 500 MG TAB PO SCH (05:50)
[2016-08-14] MEDS: ELVITEGR/COBICIST/EMTRIC/TENOF 1 EACH TABLET PO SCH (08:31)
[2016-08-14] MEDS: DARUNAVIR ETHANOLATE 800 MG TABLET PO SCH (08:31)
[2016-08-14] MEDS: ASPIRIN 81 MG TAB PO SCH (08:31)
[2016-08-14] MEDS: ENOXAPARIN 100 MG/ML SYG SC SCH ×2 (08:31→21:40)
[2016-08-14] MEDS: METOPROLOL (XL) 25 MG TAB PO SCH ×2 (08:32→21:33)
--- NOTE | 2016-08-14 12:14 | CONS ---
Date/Time of Note Date/Time of Note DATE: 08/14/16 TIME: 12:14 Assessment/Plan Assessment/Plan Chief Complaint/Hosp Course assessment/impression - septic shock, unclear etiology. 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 The sensitivity result was canned on 06/23/2016. Pt took imipenem and aztreonam around that time (his strain of moraxella was sensitive to both in vitro). Subsequent blood cultures were negative. - h/o recurrent neutropenic fever, infectious process vs. immune reconstitution inflammatory response. WBC tagged scan negative from 05/12/2016 - advanced AIDS with CD4<20 NTJ=378,120 copies (CD4<20, viral load 166,544 copies in 04/21/2016 & repeat CD4 37 on 05/07/2016) was non-compliant with medications. Restarted on Stribild and darunavir on 04/23/2016; however, likely stopped after the last admission because his viral load is very high and CD4 count is very low. Genotype on 04/20/2016 showed a wild type virus without baseline mutations. - h/o neutropenia s/p BMBx, no e/o infections or malignancy at this time. CMV IHC negative, CMV PCR in serum was <200, cocci and crypto negative, QTB gold negative - h/o L cervical and supraclavicular lymphadenopathy s/p excisional Bx in 04/2016 : Dr. 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 He recommended the patient receive anti retroviral therapy that should be closely monitored since there is a high incidence of evolution to an overt lymphoma. This was discussed with Pt - h/o cough in 03/2016. CXR showed overinflated lungs, CT showed benign appearing sub-centimeter nodule seen at the bilateral lung bases - LUE weakness and pain due to tear of rotator cuff muscles and bicep tendon anchor (shown on MRI) - h/o thrush, resolved - hyperpigmented lesions on b/l LE x several months according to Pt - h/o pruritis, probably due to atovaquone. 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 Pt does not want the other family members to know his HIV+ status Management d/w patient, RN Chelsie, and Dr. Narayanan Problems: Consultation Date/Type/Reason Admit Date/Time Aug 05, 2016 at 20:09 Initial Consult Date 08/06/16 Type of Consultation: Infectious Disease Referring Provider: MAXIME MCKEON 24 HR Interval Summary Free Text/Dictation Pt occasionally bradycardic when sleeping and HR went up to 160's when pt gets up to go to the bathroom; asymptomatic per d/w nursing staff. Pt states he finally ate "a little something" after not eating for three days. LUE pain unchanged. No CP or palpitations. Exam/Review of Systems Vital Signs Vitals Vital Signs Date Time Temp Pulse Resp B/P Pulse Ox O2 Delivery O2 Flow Rate FiO2 08/14/16 11:44 98.1 83 20 94/64 97 08/10/16 08:00 Room Air Intake and Output 08/13/16 08/13/16 08/14/16 15:00 23:00 07:00 Intake Total 250 ml 400 ml Output Total 600 ml 600 ml Balance -350 ml -200 ml Exam Constitutional: alert, oriented, well developed Head: atraumatic, normocephalic Eyes: nl conjunctiva, nl lids Neck: supple Respiratory: clear to auscultation, normal air movement Cardiovascular: irregularly irregular Musculoskeletal: muscle weakness (LUE (chronic)) Extremities: No edema Neurological: nl mental status, nl speech, COATS with LUE chronic weakness Skin: other (macules on b/l LE) Results Result Diagram: 08/13/16 0700 08/13/16 0702 Medications Medications Current Medications Trimethoprim/ Sulfamethoxazole (Bactrim (Ds)) 1 tab MoWeFr PO Last administered on 08/12/16 23:10; Admin Dose 1 TAB; Start 08/08/16 at 21:30 Azithromycin (Zithromax) 1,200 mg Q7D PO Last administered on 08/13/16 20:42; Admin Dose 1,200 MG; Start 08/06/16 at 21:30 Acetaminophen (Tylenol Tab) 650 mg Q4H PRN PO PAIN AND OR ELEVATED TEMP; Start 08/07/16 at 08:00 Diltiazem HCl (Cardizem Iv) 10 mg Q1H PRN IV HR GREATER THAN 110; Start at 08:00 Morphine Sulfate (morphine) 2 mg Q4H PRN IV PAIN LEVEL 4-7 Last administered on 08/13/16 22:18; Admin Dose 2 MG; Start 08/07/16 at 08:00 Ondansetron HCl (Zofran Inj) 4 mg Q4H PRN IV NAUSEA AND/OR VOMITING Last administered on 08/12/16 09:33; Admin Dose 4 MG; Start 08/07/16 at 08:00 Darunavir (Prezista) 800 mg DAILY PO Last administered on 08/14/16 08:31; Admin Dose 800 MG; Start 08/07/16 at 10:00 Elvitegravir/ Cobicis/Emtricit/ Tenof (Stribild Tablet) 1 each DAILY PO Last administered on 08/14/16 08:31; Admin Dose 1 EACH; Start 08/07/16 at 10:00 Digoxin (Digoxin) 0.125 mg DAILY@13 PO Last administered on 08/13/16 12:49; Admin Dose 0.125 MG; Start 08/07/16 at 13:00 IV Flush (NS 10 ml) 10 ml PRN PRN IV flush; Start 08/07/16 at 12:00 Metoprolol Succinate (Toprol Xl) 25 mg BID PO Last administered on 08/14/16 08 :32; Admin Dose 25 MG; Start 08/07/16 at 13:00 Enoxaparin Sodium (Lovenox) 95 mg Q12 SC Last administered on 08/14/16 08:31; Admin Dose 95 MG; Start 08/08/16 at 21:00 Aspirin (Aspirin) 81 mg DAILY PO Last administered on 08/14/16 08:31; Admin Dose 81 MG; Start 08/09/16 at 09:00 Levofloxacin (Levaquin) 500 mg DAILY@06 PO Last administered on 08/13/16 06:14 ; Admin Dose 500 MG; Start 08/12/16 at 06:00 AVERY SHAHID NP Aug 14, 2016 12:14
--- NOTE | 2016-08-14 12:44 | PN ---
Date/Time of Note Date/Time of Note DATE: 08/14/16 TIME: 12:43 Assessment/Plan VTE Prophylaxis VTE Prophylaxis Intervention: other Lines/Catheters IV C[facility]ter Type (from [facility]): PICC Line Central line still needed: Yes Urinary Cath still in place: No Assessment/Plan Chief Complaint/Hosp Course 1. Septic shock, resolving. Dr. Bustillo is following in infectious disease consultation. Continue antibiotics per ID. 2. New onset of atrial fibrillation. Dr. Encinas is following in cardiology consultation. The patient is currently on metoprolol, digoxin and aspirin. Continue Lovenox. 3. AIDS. The patient is restarted on antiviral therapy. 4. Acute kidney injury, resolved. Continue to monitor BUN and creatinine. 5. Right upper ureteral stone with mild hydronephrosis. Dr. Kim is following in urology consultation. 6. Noncompliance with HIV medication. Problems: Subjective 24 Hr Interval Summary Free Text/Dictation Patient has no complaints Exam/Review of Systems Vital Signs Vitals Vital Signs Date Time Temp Pulse Resp B/P Pulse Ox O2 Delivery O2 Flow Rate FiO2 08/14/16 12:31 54 08/14/16 11:44 98.1 20 94/64 97 08/10/16 08:00 Room Air Intake and Output 08/13/16 08/13/16 08/14/16 15:00 23:00 07:00 Intake Total 250 ml 400 ml Output Total 600 ml 600 ml Balance -350 ml -200 ml Exam Constitutional: well developed Head: atraumatic, normocephalic Neck: supple Respiratory: diminished breath sounds Cardiovascular: regular rate and rhythm Gastrointestinal: non-tender, soft Extremities: normal pulses Results Result Diagram: 08/13/16 0700 08/13/16 0702 Medications Medications Current Medications Trimethoprim/ Sulfamethoxazole (Bactrim (Ds)) 1 tab MoWeFr PO Last administered on 08/12/16 23:10; Admin Dose 1 TAB; Start 08/08/16 at 21:30 Azithromycin (Zithromax) 1,200 mg Q7D PO Last administered on 08/13/16 20:42; Admin Dose 1,200 MG; Start 08/06/16 at 21:30 Acetaminophen (Tylenol Tab) 650 mg Q4H PRN PO PAIN AND OR ELEVATED TEMP; Start 08/07/16 at 08:00 Diltiazem HCl (Cardizem Iv) 10 mg Q1H PRN IV HR GREATER THAN 110; Start at 08:00 Morphine Sulfate (morphine) 2 mg Q4H PRN IV PAIN LEVEL 4-7 Last administered on 08/13/16 22:18; Admin Dose 2 MG; Start 08/07/16 at 08:00 Ondansetron HCl (Zofran Inj) 4 mg Q4H PRN IV NAUSEA AND/OR VOMITING Last administered on 08/12/16 09:33; Admin Dose 4 MG; Start 08/07/16 at 08:00 Darunavir (Prezista) 800 mg DAILY PO Last administered on 08/14/16 08:31; Admin Dose 800 MG; Start 08/07/16 at 10:00 Elvitegravir/ Cobicis/Emtricit/ Tenof (Stribild Tablet) 1 each DAILY PO Last administered on 08/14/16 08:31; Admin Dose 1 EACH; Start 08/07/16 at 10:00 Digoxin (Digoxin) 0.125 mg DAILY@13 PO Last administered on 08/13/16 12:49; Admin Dose 0.125 MG; Start 08/07/16 at 13:00 IV Flush (NS 10 ml) 10 ml PRN PRN IV flush; Start 08/07/16 at 12:00 Metoprolol Succinate (Toprol Xl) 25 mg BID PO Last administered on 08/14/16 08 :32; Admin Dose 25 MG; Start 08/07/16 at 13:00 Enoxaparin Sodium (Lovenox) 95 mg Q12 SC Last administered on 08/14/16 08:31; Admin Dose 95 MG; Start 08/08/16 at 21:00 Aspirin (Aspirin) 81 mg DAILY PO Last administered on 08/14/16 08:31; Admin Dose 81 MG; Start 08/09/16 at 09:00 Levofloxacin (Levaquin) 500 mg DAILY@06 PO Last administered on 08/13/16 06:14 ; Admin Dose 500 MG; Start 08/12/16 at 06:00 MARIO CARTWRIGHT Aug 14, 2016 12:44
[2016-08-14 13:09] LABS: ADD SCAN DIFF NO
[2016-08-14 13:16] LABS: ABNORMAL IP MESSAGE 1; BASOPHILS % 0.4 % (0.0-2.0); EOSINOPHILS # 0.2 10^3/ul (0.0-0.5); EOSINOPHILS % 2.9 % (0.0-7.0); HEMOGLOBIN 14.8 g/dl (14.0-18.0); LYMPHOCYTES # 3.6 10^3/ul (0.8-2.9); LYMPHOCYTES % 69.7 % (15.0-51.0); MEAN CORPUSCULAR HEMOGLOBIN 29.4 pg (29.0-33.0); MEAN CORPUSCULAR HGB CONC 34.4 g/dl (32.0-37.0); MEAN CORPUSCULAR VOLUME 85.5 fl (82.0-101.0); MEAN PLATELET VOLUME 9.6 fl (7.4-10.4); MONOCYTE # 0.5 10^3/ul (0.3-0.9); MONOCYTES % 10.2 % (0.0-11.0); NEUTROPHIL # 0.8 10^3/ul (1.6-7.5); NEUTROPHILS % 14.9 % (39.0-77.0); PLATELET COUNT 259 10^3/UL (140-415); RED BLOOD COUNT 5.03 10^6/ul (4.70-6.10); RED CELL DISTRIBUTION WIDTH 14.1 % (11.5-14.5); WHITE BLOOD COUNT 5.2 10^3/ul (4.8-10.8)
[2016-08-14] MEDS: DIGOXIN 0.125 MG TAB PO SCH (14:19)
--- NOTE | 2016-08-14 15:44 | CONS ---
Date/Time of Note Date/Time of Note DATE: 08/14/16 TIME: 15:43 Assessment/Plan Assessment/Plan Additional Assessment/Plan 1.AF/AFL-rate controlled - in good rate control now - occasional radha - no indication for pacer with good BP 2.HIV - primary follows 3.Renal insuff- chronic, avoid nephrotoxic meds 4. Leukopenia - with HIV. 5. Obstructive uropathy- stable 6. Hepatic steatosis. 7. Inguinal hernia. 8. Hyponatremia. 9. Positive troponin-now trended negative/NL EF by echo this admit. Likley type 2 infarct. NO chest pain at this time - STRESS TEST - small defect, mostly fixed - med rx now. Consultation Date/Type/Reason Admit Date/Time Aug 05, 2016 at 20:09 Initial Consult Date 08/06/16 Type of Consultation: Infectious Disease Referring Provider: MAXIME MCKEON 24 HR Interval Summary Free Text/Dictation occasional radha - no indication for pacer with good BP ROS: No fever, no chills, no nausea, no vomiting, no diarrhea/constipation No recent weight changes No chest pain, no PND, no orthopnea No dizziness, blurred vision No thirst, no heat or cold intolerance Exam/Review of Systems Vital Signs Vitals Vital Signs Date Time Temp Pulse Resp B/P Pulse Ox O2 Delivery O2 Flow Rate FiO2 08/14/16 12:31 54 08/14/16 11:44 98.1 20 94/64 97 08/10/16 08:00 Room Air Intake and Output 08/13/16 08/13/16 08/14/16 15:00 23:00 07:00 Intake Total 250 ml 400 ml Output Total 600 ml 600 ml Balance -350 ml -200 ml Exam General: WN/WD/NAD, AOx3 HEENT: Unicetric/atraumatic/EOMI (follow commands) NECK: JVD elevated, no thyromegaly Lymph: no lymphadenopathy HEART: IRregular with no S3, II/ systolic murmur at apex LUNGS: Coarse sounds ABD: soft, NT, ND, +BS : Intact Neuro: non focal SKIN: chronic changes EXT: trace edema Results Result Diagram: 08/14/16 1230 08/13/16 0702 Results 24 hrs Laboratory Tests Test 08/14/16 12:30 White Blood Count 5.2 # Red Blood Count 5.03 Hemoglobin 14.8 Hematocrit 43.0 Mean Corpuscular Volume 85.5 Mean Corpuscular Hemoglobin 29.4 Mean Corpuscular Hemoglobin Concent 34.4 Red Cell Distribution Width 14.1 Platelet Count 259 # Mean Platelet Volume 9.6 Neutrophils % 14.9 L Lymphocytes % 69.7 H Monocytes % 10.2 Eosinophils % 2.9 Basophils % 0.4 Nucleated Red Blood Cells % 0.0 Neutrophils # 0.8 L Lymphocytes # 3.6 H Monocytes # 0.5 Eosinophils # 0.2 Basophils # 0.0 Nucleated Red Blood Cells # 0.0 Medications Medications Current Medications Trimethoprim/ Sulfamethoxazole (Bactrim (Ds)) 1 tab MoWeFr PO Last administered on 08/12/16 23:10; Admin Dose 1 TAB; Start 08/08/16 at 21:30 Azithromycin (Zithromax) 1,200 mg Q7D PO Last administered on 08/13/16 20:42; Admin Dose 1,200 MG; Start 08/06/16 at 21:30 Acetaminophen (Tylenol Tab) 650 mg Q4H PRN PO PAIN AND OR ELEVATED TEMP; Start 08/07/16 at 08:00 Diltiazem HCl (Cardizem Iv) 10 mg Q1H PRN IV HR GREATER THAN 110; Start at 08:00 Morphine Sulfate (morphine) 2 mg Q4H PRN IV PAIN LEVEL 4-7 Last administered on 08/13/16 22:18; Admin Dose 2 MG; Start 08/07/16 at 08:00 Ondansetron HCl (Zofran Inj) 4 mg Q4H PRN IV NAUSEA AND/OR VOMITING Last administered on 08/12/16 09:33; Admin Dose 4 MG; Start 08/07/16 at 08:00 Darunavir (Prezista) 800 mg DAILY PO Last administered on 08/14/16 08:31; Admin Dose 800 MG; Start 08/07/16 at 10:00 Elvitegravir/ Cobicis/Emtricit/ Tenof (Stribild Tablet) 1 each DAILY PO Last administered on 08/14/16 08:31; Admin Dose 1 EACH; Start 08/07/16 at 10:00 Digoxin (Digoxin) 0.125 mg DAILY@13 PO Last administered on 6/25/17at 14:19; Admin Dose 0.125 MG; Start 08/07/16 at 13:00 IV Flush (NS 10 ml) 10 ml PRN PRN IV flush; Start 08/07/16 at 12:00 Metoprolol Succinate (Toprol Xl) 25 mg BID PO Last administered on 08/14/16 08 :32; Admin Dose 25 MG; Start 08/07/16 at 13:00 Enoxaparin Sodium (Lovenox) 95 mg Q12 SC Last administered on 08/14/16 08:31; Admin Dose 95 MG; Start 08/08/16 at 21:00 Aspirin (Aspirin) 81 mg DAILY PO Last administered on 08/14/16 08:31; Admin Dose 81 MG; Start 08/09/16 at 09:00 Levofloxacin (Levaquin) 500 mg DAILY@06 PO Last administered on 08/13/16 06:14 ; Admin Dose 500 MG; Start 08/12/16 at 06:00 SALMA PUCKETT MD Aug 14, 2016 15:44
--- NOTE | 2016-08-14 18:12 | CONS ---
Date/Time of Note Date/Time of Note DATE: 08/14/16 TIME: 18:11 Assessment/Plan Assessment/Plan Additional Assessment/Plan 1. Acute kidney injury, multifactorial secondary to prerenal azotemia, decreased perfusion in the setting of atrial fibrillation, possibly secondary to mild right hydronephrosis secondary to nephrolithiasis. 2. Mild right hydronephrosis secondary to right proximal ureteral kidney stone. 3. Hyponatremia secondary to hypovolemic hyponatremia. 4. History of human immunodeficiency virus, does not know last CD4 count. 5. Atrial fibrillation with rapid ventricular rate. 6. Hypertension. PLAN: Na 134, off IV fluids Cr normal today HIV meds and Prophylaxis as per ID will follow up Further recommendations depend upon patient's clinical course. Plan of care dw Dr. Janell Huerta/staff/patient. Consultation Date/Type/Reason Admit Date/Time Aug 05, 2016 at 20:09 Initial Consult Date 08/06/16 Type of Consultation: NEPHROLOGY Referring Provider: MAXIME MCKEON 24 HR Interval Summary Free Text/Dictation Na 134, BP stable.afebrile, dw staff Exam/Review of Systems Vital Signs Vitals Vital Signs Date Time Temp Pulse Resp B/P Pulse Ox O2 Delivery O2 Flow Rate FiO2 08/14/16 16:06 51 08/14/16 15:55 98.4 18 98/74 97 08/10/16 08:00 Room Air Intake and Output 08/13/16 08/13/16 08/14/16 15:00 23:00 07:00 Intake Total 250 ml 400 ml Output Total 600 ml 600 ml Balance -350 ml -200 ml Exam Constitutional: alert, well developed Respiratory: clear to auscultation, normal air movement Cardiovascular: nl pulses, other (afib controlled- HR 63) Musculoskeletal: nl extremities to inspection Extremities: normal pulses Neurological: nl mental status, nl speech Results Result Diagram: 08/14/16 1230 08/13/16 0702 Results 24 hrs Laboratory Tests Test 08/14/16 12:30 White Blood Count 5.2 # Red Blood Count 5.03 Hemoglobin 14.8 Hematocrit 43.0 Mean Corpuscular Volume 85.5 Mean Corpuscular Hemoglobin 29.4 Mean Corpuscular Hemoglobin Concent 34.4 Red Cell Distribution Width 14.1 Platelet Count 259 # Mean Platelet Volume 9.6 Neutrophils % 14.9 L Lymphocytes % 69.7 H Monocytes % 10.2 Eosinophils % 2.9 Basophils % 0.4 Nucleated Red Blood Cells % 0.0 Neutrophils # 0.8 L Lymphocytes # 3.6 H Monocytes # 0.5 Eosinophils # 0.2 Basophils # 0.0 Nucleated Red Blood Cells # 0.0 Medications Medications Current Medications Trimethoprim/ Sulfamethoxazole (Bactrim (Ds)) 1 tab MoWeFr PO Last administered on 08/12/16 23:10; Admin Dose 1 TAB; Start 08/08/16 at 21:30 Azithromycin (Zithromax) 1,200 mg Q7D PO Last administered on 08/13/16 20:42; Admin Dose 1,200 MG; Start 08/06/16 at 21:30 Acetaminophen (Tylenol Tab) 650 mg Q4H PRN PO PAIN AND OR ELEVATED TEMP; Start 08/07/16 at 08:00 Diltiazem HCl (Cardizem Iv) 10 mg Q1H PRN IV HR GREATER THAN 110; Start at 08:00 Morphine Sulfate (morphine) 2 mg Q4H PRN IV PAIN LEVEL 4-7 Last administered on 08/13/16 22:18; Admin Dose 2 MG; Start 08/07/16 at 08:00 Ondansetron HCl (Zofran Inj) 4 mg Q4H PRN IV NAUSEA AND/OR VOMITING Last administered on 08/12/16 09:33; Admin Dose 4 MG; Start 08/07/16 at 08:00 Darunavir (Prezista) 800 mg DAILY PO Last administered on 08/14/16 08:31; Admin Dose 800 MG; Start 08/07/16 at 10:00 Elvitegravir/ Cobicis/Emtricit/ Tenof (Stribild Tablet) 1 each DAILY PO Last administered on 08/14/16 08:31; Admin Dose 1 EACH; Start 08/07/16 at 10:00 Digoxin (Digoxin) 0.125 mg DAILY@13 PO Last administered on 08/14/16 14:19; Admin Dose 0.125 MG; Start 08/07/16 at 13:00 IV Flush (NS 10 ml) 10 ml PRN PRN IV flush; Start 08/07/16 at 12:00 Metoprolol Succinate (Toprol Xl) 25 mg BID PO Last administered on 08/14/16 08 :32; Admin Dose 25 MG; Start 08/07/16 at 13:00 Enoxaparin Sodium (Lovenox) 95 mg Q12 SC Last administered on 08/14/16 08:31; Admin Dose 95 MG; Start 08/08/16 at 21:00 Aspirin (Aspirin) 81 mg DAILY PO Last administered on 08/14/16 08:31; Admin Dose 81 MG; Start 08/09/16 at 09:00 Levofloxacin (Levaquin) 500 mg DAILY@06 PO Last administered on 08/13/16 06:14 ; Admin Dose 500 MG; Start 08/12/16 at 06:00 MAXIME MCKEON Aug 14, 2016 18:12
[2016-08-14] MEDS: morphine 2 MG INJ IV PRN (21:34)
[2016-08-15] VITALS (12 sets, daily range): BP systolic 96–120; BP diastolic 63–77; PULSE 50–61; RESP 17–20
[2016-08-15] MEDS: morphine 2 MG INJ IV PRN ×2 (04:19→21:37)
[2016-08-15] MEDS: LEVOFLOXACIN 500 MG TAB PO SCH (06:00)
[2016-08-15 08:07] LABS: ABNORMAL IP MESSAGE 1; BASOPHILS % 0.5 % (0.0-2.0); EOSINOPHILS # 0.2 10^3/ul (0.0-0.5); EOSINOPHILS % 4.4 % (0.0-7.0); HEMATOCRIT 41.5 % (42.0-52.0); LYMPHOCYTES # 2.9 10^3/ul (0.8-2.9); LYMPHOCYTES % 66.8 % (15.0-51.0); MEAN CORPUSCULAR HEMOGLOBIN 28.9 pg (29.0-33.0); MEAN CORPUSCULAR HGB CONC 33.7 g/dl (32.0-37.0); MEAN CORPUSCULAR VOLUME 85.6 fl (82.0-101.0); MEAN PLATELET VOLUME 9.8 fl (7.4-10.4); MONOCYTE # 0.5 10^3/ul (0.3-0.9); MONOCYTES % 10.4 % (0.0-11.0); NEUTROPHIL # 0.7 10^3/ul (1.6-7.5); NEUTROPHILS % 14.9 % (39.0-77.0); PLATELET COUNT 271 10^3/UL (140-415); RED BLOOD COUNT 4.85 10^6/ul (4.70-6.10); RED CELL DISTRIBUTION WIDTH 14.2 % (11.5-14.5); WHITE BLOOD COUNT 4.3 10^3/ul (4.8-10.8)
[2016-08-15 08:08] LABS: ADD SCAN DIFF NO
--- NOTE | 2016-08-15 08:32 | CONS ---
Date/Time of Note Date/Time of Note DATE: 08/15/16 TIME: 08:31 Assessment/Plan Assessment/Plan Additional Assessment/Plan 1.AF/AFL-rate controlled - in good rate control now - occasional radha - no indication for pacer with good BP 2.HIV - primary follows - 3.Renal insuff- chronic, avoid nephrotoxic meds 4. Leukopenia - with HIV. 5. Obstructive uropathy- stable 6. Hepatic steatosis- transaminitis Rx 7. Inguinal hernia. 8. Hyponatremia. 9. Positive troponin-now trended negative/NL EF by echo this admit. Likley type 2 infarct. NO chest pain at this time - STRESS TEST - small defect, mostly fixed - med rx now. Consultation Date/Type/Reason Admit Date/Time Aug 05, 2016 at 20:09 Initial Consult Date 08/06/16 Type of Consultation: NEPHROLOGY Referring Provider: MAXIME MCKEON 24 HR Interval Summary Free Text/Dictation NO acute events - HR well controlled. ROS: No fever, no chills, no nausea, no vomiting, no diarrhea/constipation No recent weight changes No chest pain, no PND, no orthopnea No dizziness, blurred vision No thirst, no heat or cold intolerance Exam/Review of Systems Vital Signs Vitals Vital Signs Date Time Temp Pulse Resp B/P Pulse Ox O2 Delivery O2 Flow Rate FiO2 08/15/16 08:24 60 08/15/16 07:42 97.6 18 96/73 98 Intake and Output 08/14/16 08/14/16 08/15/16 15:00 23:00 07:00 Intake Total 500 ml 600 ml Output Total 800 ml Balance -300 ml 600 ml Exam General: WN/WD/NAD, AOx 3 HEENT: Unicetric/atraumatic/EOMI (follow commands) NECK: JVD elevated, no thyromegaly Lymph: no lymphadenopathy HEART: Irregular with no S3, II/ systolic murmur at apex LUNGS: Coarse sounds ABD: soft, NT, ND, +BS : Intact Neuro: non focal SKIN: chronic changes EXT: trace edema Results Result Diagram: 08/15/16 0635 08/13/16 0702 Results 24 hrs Laboratory Tests Test 08/14/16 12:30 08/15/16 06:35 White Blood Count 5.2 # 4.3 L Red Blood Count 5.03 4.85 Hemoglobin 14.8 14.0 Hematocrit 43.0 41.5 L Mean Corpuscular Volume 85.5 85.6 Mean Corpuscular Hemoglobin 29.4 28.9 L Mean Corpuscular Hemoglobin Concent 34.4 33.7 Red Cell Distribution Width 14.1 14.2 Platelet Count 259 # 271 Mean Platelet Volume 9.6 9.8 Neutrophils % 14.9 L 14.9 L Lymphocytes % 69.7 H 66.8 H Monocytes % 10.2 10.4 Eosinophils % 2.9 4.4 Basophils % 0.4 0.5 Nucleated Red Blood Cells % 0.0 0.0 Neutrophils # 0.8 L 0.7 L Lymphocytes # 3.6 H 2.9 Monocytes # 0.5 0.5 Eosinophils # 0.2 0.2 Basophils # 0.0 0.0 Nucleated Red Blood Cells # 0.0 0.0 Medications Medications Current Medications Trimethoprim/ Sulfamethoxazole (Bactrim (Ds)) 1 tab MoWeFr PO Last administered on 08/12/16 23:10; Admin Dose 1 TAB; Start 08/08/16 at 21:30 Azithromycin (Zithromax) 1,200 mg Q7D PO Last administered on 08/13/16 20:42; Admin Dose 1,200 MG; Start 08/06/16 at 21:30 Acetaminophen (Tylenol Tab) 650 mg Q4H PRN PO PAIN AND OR ELEVATED TEMP; Start 08/07/16 at 08:00 Diltiazem HCl (Cardizem Iv) 10 mg Q1H PRN IV HR GREATER THAN 110; Start at 08:00 Morphine Sulfate (morphine) 2 mg Q4H PRN IV PAIN LEVEL 4-7 Last administered on 08/15/16 04:19; Admin Dose 2 MG; Start 08/07/16 at 08:00 Ondansetron HCl (Zofran Inj) 4 mg Q4H PRN IV NAUSEA AND/OR VOMITING Last administered on 08/12/16 09:33; Admin Dose 4 MG; Start 08/07/16 at 08:00 Darunavir (Prezista) 800 mg DAILY PO Last administered on 08/14/16 08:31; Admin Dose 800 MG; Start 08/07/16 at 10:00 Elvitegravir/ Cobicis/Emtricit/ Tenof (Stribild Tablet) 1 each DAILY PO Last administered on 08/14/16 08:31; Admin Dose 1 EACH; Start 08/07/16 at 10:00 Digoxin (Digoxin) 0.125 mg DAILY@13 PO Last administered on 08/14/16 14:19; Admin Dose 0.125 MG; Start 08/07/16 at 13:00 IV Flush (NS 10 ml) 10 ml PRN PRN IV flush; Start 08/07/16 at 12:00 Metoprolol Succinate (Toprol Xl) 25 mg BID PO Last administered on 08/14/16 21 :33; Admin Dose 25 MG; Start 08/07/16 at 13:00 Enoxaparin Sodium (Lovenox) 95 mg Q12 SC Last administered on 08/14/16 21:40; Admin Dose 95 MG; Start 08/08/16 at 21:00 Aspirin (Aspirin) 81 mg DAILY PO Last administered on 08/14/16 08:31; Admin Dose 81 MG; Start 08/09/16 at 09:00 Levofloxacin (Levaquin) 500 mg DAILY@06 PO Last administered on 08/13/16 06:14 ; Admin Dose 500 MG; Start 08/12/16 at 06:00 SALMA PUCKETT MD Aug 15, 2016 08:32
[2016-08-15 08:39] LABS: CALCIUM 9.2 mg/dl (8.4-10.2); CREATININE 0.83 mg/dl (0.61-1.24); POTASSIUM 3.8 mmol/L (3.5-5.1)
[2016-08-15] MEDS: ASPIRIN 81 MG TAB PO SCH (09:00)
[2016-08-15] MEDS: DARUNAVIR ETHANOLATE 800 MG TABLET PO SCH (09:00)
[2016-08-15] MEDS: ENOXAPARIN 100 MG/ML SYG SC SCH ×2 (09:03→21:50)
[2016-08-15] MEDS: ELVITEGR/COBICIST/EMTRIC/TENOF 1 EACH TABLET PO SCH (09:13)
[2016-08-15] MEDS: METOPROLOL (XL) 25 MG TAB PO SCH ×2 (09:13→21:00)
--- NOTE | 2016-08-15 12:49 | CONS ---
Date/Time of Note Date/Time of Note DATE: 08/15/16 TIME: 12:49 Assessment/Plan Assessment/Plan Chief Complaint/Hosp Course assessment/impression - septic shock, unclear etiology. 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 The sensitivity result was canned on 06/23/2016. Pt took imipenem and aztreonam around that time (his strain of moraxella was sensitive to both in vitro). Subsequent blood cultures were negative. - h/o recurrent neutropenic fever, infectious process vs. immune reconstitution inflammatory response. 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 Restarted on Stribild and darunavir on 04/23/2016; however, likely stopped after the last admission because his viral load is very high and CD4 count is very low. Genotype on 04/20/2016 showed a wild type virus without baseline mutations. - h/o neutropenia s/p BMBx, no e/o infections or malignancy at this time. CMV IHC negative, CMV PCR in serum was <200, cocci and crypto negative, QTB gold negative - h/o L cervical and supraclavicular lymphadenopathy s/p excisional Bx in 04/2016 : Dr. 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 He recommended the patient receive anti retroviral therapy that should be closely monitored since there is a high incidence of evolution to an overt lymphoma. This was discussed with Pt - h/o cough in 03/2016. CXR showed overinflated lungs, CT showed benign appearing sub-centimeter nodule seen at the bilateral lung bases - LUE weakness and pain due to tear of rotator cuff muscles and bicep tendon anchor (shown on MRI) - h/o thrush, resolved - hyperpigmented lesions on b/l LE x several months according to Pt - h/o pruritis, probably due to atovaquone. 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 Pt does not want the other family members to know his HIV+ status - Pt has a f/u appointment with his PMD management d/w Pt Problems: Consultation Date/Type/Reason Admit Date/Time Aug 05, 2016 at 20:09 Initial Consult Date 08/06/16 Type of Consultation: ID Referring Provider: MAXIME MCKEON 24 HR Interval Summary Constitutional: no complaints Detailed Summary Eyes: no complaints ENT: no complaints Respiratory: no complaints Cardiovascular: no complaints Gastrointestinal: no complaints Genitourinary: no complaints Musculoskeletal: restricted range of motion (LUE) Skin: no complaints Neurologic: focal-weakness (LUE and L hand) Exam/Review of Systems Vital Signs Vitals Vital Signs Date Time Temp Pulse Resp B/P Pulse Ox O2 Delivery O2 Flow Rate FiO2 08/15/16 12:10 50 08/15/16 11:45 98.6 19 104/72 97 Intake and Output 08/14/16 08/14/16 08/15/16 15:00 23:00 07:00 Intake Total 500 ml 600 ml Output Total 800 ml Balance -300 ml 600 ml Exam Constitutional: alert, oriented, well developed Psych: nl mood/affect, no complaints Eyes: nl conjunctiva, nl lids ENMT: nl external ears & nose, nl nasal mucosa & septum Neck: supple Respiratory: clear to auscultation, normal air movement Cardiovascular: regular rate and rhythm Musculoskeletal: muscle weakness (L hand), range of motion (LUE) Extremities: No edema Results Result Diagram: 08/15/16 0635 08/15/16 0635 Results 24 hrs Laboratory Tests Test 08/15/16 06:35 White Blood Count 4.3 L Red Blood Count 4.85 Hemoglobin 14.0 Hematocrit 41.5 L Mean Corpuscular Volume 85.6 Mean Corpuscular Hemoglobin 28.9 L Mean Corpuscular Hemoglobin Concent 33.7 Red Cell Distribution Width 14.2 Platelet Count 271 Mean Platelet Volume 9.8 Neutrophils % 14.9 L Lymphocytes % 66.8 H Monocytes % 10.4 Eosinophils % 4.4 Basophils % 0.5 Nucleated Red Blood Cells % 0.0 Neutrophils # 0.7 L Lymphocytes # 2.9 Monocytes # 0.5 Eosinophils # 0.2 Basophils # 0.0 Nucleated Red Blood Cells # 0.0 Sodium Level 138 Potassium Level 3.8 Chloride Level 104 Carbon Dioxide Level 26 Anion Gap 12 Blood Urea Nitrogen 17 Creatinine 0.83 Glucose Level 98 Calcium Level 9.2 Medications Medications Current Medications Trimethoprim/ Sulfamethoxazole (Bactrim (Ds)) 1 tab MoWeFr PO Last administered on 08/12/16 23:10; Admin Dose 1 TAB; Start 08/08/16 at 21:30 Azithromycin (Zithromax) 1,200 mg Q7D PO Last administered on 08/13/16 20:42; Admin Dose 1,200 MG; Start 08/06/16 at 21:30 Acetaminophen (Tylenol Tab) 650 mg Q4H PRN PO PAIN AND OR ELEVATED TEMP; Start 08/07/16 at 08:00 Diltiazem HCl (Cardizem Iv) 10 mg Q1H PRN IV HR GREATER THAN 110; Start at 08:00 Morphine Sulfate (morphine) 2 mg Q4H PRN IV PAIN LEVEL 4-7 Last administered on 08/15/16 04:19; Admin Dose 2 MG; Start 08/07/16 at 08:00 Ondansetron HCl (Zofran Inj) 4 mg Q4H PRN IV NAUSEA AND/OR VOMITING Last administered on 08/12/16 09:33; Admin Dose 4 MG; Start 08/07/16 at 08:00 Darunavir (Prezista) 800 mg DAILY PO Last administered on 08/15/16 09:00; Admin Dose 800 MG; Start 08/07/16 at 10:00 Elvitegravir/ Cobicis/Emtricit/ Tenof (Stribild Tablet) 1 each DAILY PO Last administered on 08/15/16 09:13; Admin Dose 1 EACH; Start 08/07/16 at 10:00 Digoxin (Digoxin) 0.125 mg DAILY@13 PO Last administered on 08/14/16 14:19; Admin Dose 0.125 MG; Start 08/07/16 at 13:00 IV Flush (NS 10 ml) 10 ml PRN PRN IV flush; Start 08/07/16 at 12:00 Metoprolol Succinate (Toprol Xl) 25 mg BID PO Last administered on 08/15/16 09 :13; Admin Dose 25 MG; Start 08/07/16 at 13:00 Enoxaparin Sodium (Lovenox) 95 mg Q12 SC Last administered on 08/15/16 09:03; Admin Dose 95 MG; Start 08/08/16 at 21:00 Aspirin (Aspirin) 81 mg DAILY PO Last administered on 08/15/16 09:00; Admin Dose 81 MG; Start 08/09/16 at 09:00 Levofloxacin (Levaquin) 500 mg DAILY@06 PO Last administered on 08/13/16 06:14 ; Admin Dose 500 MG; Start 08/12/16 at 06:00 JACK LAIRD M.D. Aug 15, 2016 12:49
[2016-08-15] MEDS: DIGOXIN 0.125 MG TAB PO SCH (13:00)
--- NOTE | 2016-08-15 17:57 | CONS ---
Date/Time of Note Date/Time of Note DATE: 08/15/16 TIME: 17:56 Assessment/Plan Assessment/Plan Additional Assessment/Plan 1. Acute kidney injury, multifactorial secondary to prerenal azotemia, decreased perfusion in the setting of atrial fibrillation, possibly secondary to mild right hydronephrosis secondary to nephrolithiasis. 2. Mild right hydronephrosis secondary to right proximal ureteral kidney stone. 3. Hyponatremia secondary to hypovolemic hyponatremia. 4. History of human immunodeficiency virus, does not know last CD4 count. 5. Atrial fibrillation with rapid ventricular rate. 6. Hypertension. 7. s/p Septic shock with bacteremia PLAN: Na normal today , off IV fluids Cr normal today - ID following HIV meds and Prophylaxis as per ID will follow up Consultation Date/Type/Reason Admit Date/Time Aug 05, 2016 at 20:09 Initial Consult Date 08/06/16 Type of Consultation: NEPHROLOGY Referring Provider: MAXIME MCKEON 24 HR Interval Summary Free Text/Dictation afebrile, BP stable, no complaints Exam/Review of Systems Vital Signs Vitals Vital Signs Date Time Temp Pulse Resp B/P Pulse Ox O2 Delivery O2 Flow Rate FiO2 08/15/16 16:05 61 08/15/16 15:51 98.1 17 108/77 100 Intake and Output 08/14/16 08/14/16 08/15/16 15:00 23:00 07:00 Intake Total 500 ml 600 ml Output Total 800 ml Balance -300 ml 600 ml Results Result Diagram: 08/15/16 0635 08/15/16 0635 Results 24 hrs Laboratory Tests Test 08/15/16 06:35 White Blood Count 4.3 L Red Blood Count 4.85 Hemoglobin 14.0 Hematocrit 41.5 L Mean Corpuscular Volume 85.6 Mean Corpuscular Hemoglobin 28.9 L Mean Corpuscular Hemoglobin Concent 33.7 Red Cell Distribution Width 14.2 Platelet Count 271 Mean Platelet Volume 9.8 Neutrophils % 14.9 L Lymphocytes % 66.8 H Monocytes % 10.4 Eosinophils % 4.4 Basophils % 0.5 Nucleated Red Blood Cells % 0.0 Neutrophils # 0.7 L Lymphocytes # 2.9 Monocytes # 0.5 Eosinophils # 0.2 Basophils # 0.0 Nucleated Red Blood Cells # 0.0 Sodium Level 138 Potassium Level 3.8 Chloride Level 104 Carbon Dioxide Level 26 Anion Gap 12 Blood Urea Nitrogen 17 Creatinine 0.83 Glucose Level 98 Calcium Level 9.2 Medications Medications Current Medications Trimethoprim/ Sulfamethoxazole (Bactrim (Ds)) 1 tab MoWeFr PO Last administered on 08/12/16 23:10; Admin Dose 1 TAB; Start 08/08/16 at 21:30 Azithromycin (Zithromax) 1,200 mg Q7D PO Last administered on 08/13/16 20:42; Admin Dose 1,200 MG; Start 08/06/16 at 21:30 Acetaminophen (Tylenol Tab) 650 mg Q4H PRN PO PAIN AND OR ELEVATED TEMP; Start 08/07/16 at 08:00 Diltiazem HCl (Cardizem Iv) 10 mg Q1H PRN IV HR GREATER THAN 110; Start at 08:00 Morphine Sulfate (morphine) 2 mg Q4H PRN IV PAIN LEVEL 4-7 Last administered on 08/15/16 04:19; Admin Dose 2 MG; Start 08/07/16 at 08:00 Ondansetron HCl (Zofran Inj) 4 mg Q4H PRN IV NAUSEA AND/OR VOMITING Last administered on 08/12/16 09:33; Admin Dose 4 MG; Start 08/07/16 at 08:00 Darunavir (Prezista) 800 mg DAILY PO Last administered on 08/15/16 09:00; Admin Dose 800 MG; Start 08/07/16 at 10:00 Elvitegravir/ Cobicis/Emtricit/ Tenof (Stribild Tablet) 1 each DAILY PO Last administered on 08/15/16 09:13; Admin Dose 1 EACH; Start 08/07/16 at 10:00 Digoxin (Digoxin) 0.125 mg DAILY@13 PO Last administered on 08/15/16 13:00; Admin Dose 0.125 MG; Start 08/07/16 at 13:00 IV Flush (NS 10 ml) 10 ml PRN PRN IV flush; Start 08/07/16 at 12:00 Metoprolol Succinate (Toprol Xl) 25 mg BID PO Last administered on 08/15/16 09 :13; Admin Dose 25 MG; Start 08/07/16 at 13:00 Enoxaparin Sodium (Lovenox) 95 mg Q12 SC Last administered on 08/15/16 09:03; Admin Dose 95 MG; Start 08/08/16 at 21:00 Aspirin (Aspirin) 81 mg DAILY PO Last administered on 08/15/16 09:00; Admin Dose 81 MG; Start 08/09/16 at 09:00 Levofloxacin (Levaquin) 500 mg DAILY@06 PO Last administered on 08/13/16 06:14 ; Admin Dose 500 MG; Start 08/12/16 at 06:00 SWATI VALIENTE MD Aug 15, 2016 17:57
--- NOTE | 2016-08-15 18:27 | PN ---
Date/Time of Note Date/Time of Note DATE: 08/15/16 TIME: 18:24 Assessment/Plan VTE Prophylaxis VTE Prophylaxis Intervention: SCD's Lines/Catheters IV Catheter Type (from [facility]): PICC Line Central line still needed: Yes Urinary Cath still in place: No Assessment/Plan Chief Complaint/Hosp Course Patient continues to be in atrial fibrillation at controlled rate, denies chest pain. ASSESSMENT AND PLAN: 1. Septic shock, resolving. Dr. Bustillo is following in infectious disease consultation. Continue antibiotics per ID. 2. New onset of atrial fibrillation. Dr. Encinas is following in cardiology consultation. The patient is currently on metoprolol, digoxin and aspirin. Continue Lovenox. 3. AIDS. The patient is restarted on antiviral therapy. 4. Acute kidney injury, resolved. Continue to monitor BUN and creatinine. 5. Right upper ureteral stone with mild hydronephrosis. Dr. Kim is following in urology consultation. 6. Noncompliance with HIV medication. 7. Elevated troponin was possible type type II infarct, continue aspirin and metoprolol. Further recommendations based on clinical course. Plan of care discussed with Dr. Walden. Problems: Exam/Review of Systems Vital Signs Vitals Vital Signs Date Time Temp Pulse Resp B/P Pulse Ox O2 Delivery O2 Flow Rate FiO2 08/15/16 16:05 61 08/15/16 15:51 98.1 17 108/77 100 Intake and Output 08/14/16 08/14/16 08/15/16 15:00 23:00 07:00 Intake Total 500 ml 600 ml Output Total 800 ml Balance -300 ml 600 ml Exam Constitutional: alert, oriented Head: normocephalic Neck: supple Respiratory: normal air movement Cardiovascular: irregular rhythm Gastrointestinal: non-tender, soft Extremities: normal pulses Neurological: nl mental status Results Result Diagram: 08/15/16 0635 08/15/16 0635 Results 24 hrs Laboratory Tests Test 08/15/16 06:35 White Blood Count 4.3 L Red Blood Count 4.85 Hemoglobin 14.0 Hematocrit 41.5 L Mean Corpuscular Volume 85.6 Mean Corpuscular Hemoglobin 28.9 L Mean Corpuscular Hemoglobin Concent 33.7 Red Cell Distribution Width 14.2 Platelet Count 271 Mean Platelet Volume 9.8 Neutrophils % 14.9 L Lymphocytes % 66.8 H Monocytes % 10.4 Eosinophils % 4.4 Basophils % 0.5 Nucleated Red Blood Cells % 0.0 Neutrophils # 0.7 L Lymphocytes # 2.9 Monocytes # 0.5 Eosinophils # 0.2 Basophils # 0.0 Nucleated Red Blood Cells # 0.0 Sodium Level 138 Potassium Level 3.8 Chloride Level 104 Carbon Dioxide Level 26 Anion Gap 12 Blood Urea Nitrogen 17 Creatinine 0.83 Glucose Level 98 Calcium Level 9.2 Medications Medications Current Medications Trimethoprim/ Sulfamethoxazole (Bactrim (Ds)) 1 tab MoWeFr PO Last administered on 08/12/16 23:10; Admin Dose 1 TAB; Start 08/08/16 at 21:30 Azithromycin (Zithromax) 1,200 mg Q7D PO Last administered on 08/13/16 20:42; Admin Dose 1,200 MG; Start 08/06/16 at 21:30 Acetaminophen (Tylenol Tab) 650 mg Q4H PRN PO PAIN AND OR ELEVATED TEMP; Start 08/07/16 at 08:00 Diltiazem HCl (Cardizem Iv) 10 mg Q1H PRN IV HR GREATER THAN 110; Start at 08:00 Morphine Sulfate (morphine) 2 mg Q4H PRN IV PAIN LEVEL 4-7 Last administered on 08/15/16 04:19; Admin Dose 2 MG; Start 08/07/16 at 08:00 Ondansetron HCl (Zofran Inj) 4 mg Q4H PRN IV NAUSEA AND/OR VOMITING Last administered on 08/12/16 09:33; Admin Dose 4 MG; Start 08/07/16 at 08:00 Darunavir (Prezista) 800 mg DAILY PO Last administered on 08/15/16 09:00; Admin Dose 800 MG; Start 08/07/16 at 10:00 Elvitegravir/ Cobicis/Emtricit/ Tenof (Stribild Tablet) 1 each DAILY PO Last administered on 08/15/16 09:13; Admin Dose 1 EACH; Start 08/07/16 at 10:00 Digoxin (Digoxin) 0.125 mg DAILY@13 PO Last administered on 08/15/16 13:00; Admin Dose 0.125 MG; Start 08/07/16 at 13:00 IV Flush (NS 10 ml) 10 ml PRN PRN IV flush; Start 08/07/16 at 12:00 Metoprolol Succinate (Toprol Xl) 25 mg BID PO Last administered on 08/15/16 09 :13; Admin Dose 25 MG; Start 08/07/16 at 13:00 Enoxaparin Sodium (Lovenox) 95 mg Q12 SC Last administered on 08/15/16 09:03; Admin Dose 95 MG; Start 08/08/16 at 21:00 Aspirin (Aspirin) 81 mg DAILY PO Last administered on 08/15/16 09:00; Admin Dose 81 MG; Start 08/09/16 at 09:00 Levofloxacin (Levaquin) 500 mg DAILY@06 PO Last administered on 08/13/16 06:14 ; Admin Dose 500 MG; Start 08/12/16 at 06:00 AAKASH MITCHELL Aug 15, 2016 18:27
--- NOTE | 2016-08-15 19:23 | PN ---
DATE: 08/15/2016 SUBJECTIVE: The patient did have a stone in the upper right ureter and hydronephrosis; however, the stone did go back into the kidney. At the present, the patient denies any abdominal pain. No naus ea, no vomiting, and no lower urinary tract symptoms. OBJECTIVE VITAL SIGNS: His temperature is 98.6, blood pressure 104/72, pulse is 50, respirations 19. ABDOMEN: Soft. There is no abdominal mass palpable or tenderness. LABORATORY DATA: The CBC shows a white count of 4.3, hemoglobin 14.0, hematocrit 41.5. BUN is 17, creatinine 0.83. Electrolytes are normal. DIAGNOSTIC DATA: Again, the last CT scan of the abdomen and pelvis that he had on the showed t hat the stone that was noted in the upper ureter has now moved into the lower pole of the right kidn ey, and the previously noted right hydronephrosis is no longer present. IMPRESSION: Resolved right hydronephrosis, and the stone in the upper right ureter has moved into t he lower pole of the right kidney. RECOMMENDATION: At the present is, from a urological standpoint, just observe. Dictated By: MAN CUTLER/VINCE Conf#: [id number] DID#: [id number]
[2016-08-15] MEDS: TRIMETHOPRIM/SULFAMETHOX (DS) TAB PO SCH (21:30)
[2016-08-15] MEDS: ONDANSETRON 4 MG INJ IV PRN (21:45)
[2016-08-15] MEDS: HYDROmorphONE 1 MG/ML SYG IV PRN (23:11)
[2016-08-15] MEDS: SOD CHLORIDE 0.9% 1,000 ML IV SCH (23:11)
[2016-08-16] VITALS (12 sets, daily range): BP systolic 102–121; BP diastolic 58–86; PULSE 49–66; RESP 17–20
[2016-08-16] MEDS: morphine 2 MG INJ IV PRN ×3 (01:22→10:07)
[2016-08-16] MEDS: HYDROmorphONE 1 MG/ML SYG IV PRN ×2 (03:42→08:42)
[2016-08-16] MEDS: LEVOFLOXACIN 500 MG TAB PO SCH (05:59)
[2016-08-16 08:10] LABS: ADD SCAN DIFF NO
[2016-08-16 08:19] LABS: BASOPHILS % 0.4 % (0.0-2.0); EOSINOPHILS # 0.2 10^3/ul (0.0-0.5); EOSINOPHILS % 3.8 % (0.0-7.0); HEMATOCRIT 40.3 % (42.0-52.0); HEMOGLOBIN 13.9 g/dl (14.0-18.0); LYMPHOCYTES # 3.4 10^3/ul (0.8-2.9); LYMPHOCYTES % 61.8 % (15.0-51.0); MEAN CORPUSCULAR HEMOGLOBIN 29.6 pg (29.0-33.0); MEAN CORPUSCULAR HGB CONC 34.5 g/dl (32.0-37.0); MEAN CORPUSCULAR VOLUME 85.7 fl (82.0-101.0); MEAN PLATELET VOLUME 9.6 fl (7.4-10.4); MONOCYTE # 0.5 10^3/ul (0.3-0.9); MONOCYTES % 9.8 % (0.0-11.0); NEUTROPHIL # 1.3 10^3/ul (1.6-7.5); NEUTROPHILS % 22.9 % (39.0-77.0); PLATELET COUNT 281 10^3/UL (140-415); RED CELL DISTRIBUTION WIDTH 14.1 % (11.5-14.5); WHITE BLOOD COUNT 5.5 10^3/ul (4.8-10.8)
[2016-08-16 08:46] LABS: CALCIUM 9.3 mg/dl (8.4-10.2); CREATININE 0.93 mg/dl (0.61-1.24)
[2016-08-16] MEDS: DARUNAVIR ETHANOLATE 800 MG TABLET PO SCH (08:59)
[2016-08-16] MEDS: ASPIRIN 81 MG TAB PO SCH (08:59)
[2016-08-16] MEDS: ELVITEGR/COBICIST/EMTRIC/TENOF 1 EACH TABLET PO SCH (08:59)
[2016-08-16] MEDS: METOPROLOL (XL) 25 MG TAB PO SCH ×2 (09:00→20:52)
[2016-08-16] MEDS: ENOXAPARIN 100 MG/ML SYG SC SCH ×2 (09:08→21:04)
[2016-08-16] MEDS: HYDROmorphONE 2 MG/ML SYG IV PRN ×3 (12:29→20:51)
[2016-08-16] MEDS: DIGOXIN 0.125 MG TAB PO SCH (12:29)
--- NOTE | 2016-08-16 15:28 | CONS ---
Date/Time of Note Date/Time of Note DATE: 08/16/16 TIME: 15:26 Assessment/Plan Assessment/Plan Chief Complaint/Hosp Course assessment/impression - septic shock, unclear etiology. 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 The sensitivity result was canned on 06/23/2016. Pt took imipenem and aztreonam around that time (his strain of moraxella was sensitive to both in vitro). Subsequent blood cultures were negative. - h/o recurrent neutropenic fever, infectious process vs. immune reconstitution inflammatory response. 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 Restarted on Stribild and darunavir on 04/23/2016; however, likely stopped after the last admission because his viral load is very high and CD4 count is very low. Genotype on 04/20/2016 showed a wild type virus without baseline mutations. - h/o neutropenia s/p BMBx, no e/o infections or malignancy at this time. CMV IHC negative, CMV PCR in serum was <200, cocci and crypto negative, QTB gold negative - h/o L cervical and supraclavicular lymphadenopathy s/p excisional Bx in 04/2016 : Dr. 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 He recommended the patient receive anti retroviral therapy that should be closely monitored since there is a high incidence of evolution to an overt lymphoma. This was discussed with Pt - h/o cough in 03/2016. CXR showed overinflated lungs, CT showed benign appearing sub-centimeter nodule seen at the bilateral lung bases - LUE weakness and pain due to tear of rotator cuff muscles and bicep tendon anchor (shown on MRI) - h/o thrush, resolved - hyperpigmented lesions on b/l LE x several months according to Pt - h/o pruritis, probably due to atovaquone. 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 - continue Stribild (tenofovir/emtricitabine/elvitegravir/cobicistat) and darunavir 800mg - continue Bactrim three times a week for pneumocystis prophylaxis - continue weekly azithromycin for MAC prophylaxis - discontinue neutropenic precautions - Pt confirmed that his son and daughter know of his HIV+ status. Pt does not want the other family members to know his HIV+ status - Pt has a f/u appointment with his PMD Management d/w patient and Dr. Narayanan Problems: Consultation Date/Type/Reason Admit Date/Time Aug 05, 2016 at 20:09 Initial Consult Date 08/06/16 Type of Consultation: Infectious Disease Referring Provider: MAXIME MCKEON 24 HR Interval Summary Free Text/Dictation On Dilaudid 2mg IV prn for severe pain related to ureteral stone per d/w RN Rickey. Pt currently states pain is tolerable and asking if he is going home today. Exam/Review of Systems Vital Signs Vitals Vital Signs Date Time Temp Pulse Resp B/P Pulse Ox O2 Delivery O2 Flow Rate FiO2 08/16/16 12:22 62 08/16/16 11:54 97.6 20 121/77 98 Intake and Output 08/15/16 08/15/16 08/16/16 15:00 23:00 07:00 Intake Total 500 ml 760 ml Output Total 200 ml Balance 500 ml 560 ml Exam Constitutional: alert, oriented, well developed Head: atraumatic, normocephalic Eyes: nl conjunctiva, nl lids Neck: supple Respiratory: clear to auscultation, normal air movement Cardiovascular: irregularly irregular Musculoskeletal: muscle weakness (LUE (chronic)) Extremities: No edema Neurological: nl mental status, nl speech, COATS with LUE chronic weakness Skin: other (macules on b/l LE) Results Result Diagram: 08/16/16 0735 08/16/16 0735 Results 24 hrs Laboratory Tests Test 08/16/16 07:35 White Blood Count 5.5 # Red Blood Count 4.70 Hemoglobin 13.9 L Hematocrit 40.3 L Mean Corpuscular Volume 85.7 Mean Corpuscular Hemoglobin 29.6 Mean Corpuscular Hemoglobin Concent 34.5 Red Cell Distribution Width 14.1 Platelet Count 281 Mean Platelet Volume 9.6 Neutrophils % 22.9 L Lymphocytes % 61.8 H Monocytes % 9.8 Eosinophils % 3.8 Basophils % 0.4 Nucleated Red Blood Cells % 0.0 Neutrophils # 1.3 L Lymphocytes # 3.4 H Monocytes # 0.5 Eosinophils # 0.2 Basophils # 0.0 Nucleated Red Blood Cells # 0.0 Sodium Level 137 Potassium Level 4.0 Chloride Level 106 Carbon Dioxide Level 24 Anion Gap 11 Blood Urea Nitrogen 17 Creatinine 0.93 Glucose Level 103 Calcium Level 9.3 Medications Medications Current Medications Trimethoprim/ Sulfamethoxazole (Bactrim (Ds)) 1 tab MoWeFr PO Last administered on 08/12/16 23:10; Admin Dose 1 TAB; Start 08/08/16 at 21:30 Azithromycin (Zithromax) 1,200 mg Q7D PO Last administered on 08/13/16 20:42; Admin Dose 1,200 MG; Start 08/06/16 at 21:30 Acetaminophen (Tylenol Tab) 650 mg Q4H PRN PO PAIN AND OR ELEVATED TEMP; Start 08/07/16 at 08:00 Diltiazem HCl (Cardizem Iv) 10 mg Q1H PRN IV HR GREATER THAN 110; Start at 08:00 Ondansetron HCl (Zofran Inj) 4 mg Q4H PRN IV NAUSEA AND/OR VOMITING Last administered on 08/15/16 21:45; Admin Dose 4 MG; Start 08/07/16 at 08:00 Darunavir (Prezista) 800 mg DAILY PO Last administered on 08/16/16 08:59; Admin Dose 800 MG; Start 08/07/16 at 10:00 Elvitegravir/ Cobicis/Emtricit/ Tenof (Stribild Tablet) 1 each DAILY PO Last administered on 08/16/16 08:59; Admin Dose 1 EACH; Start 08/07/16 at 10:00 Digoxin (Digoxin) 0.125 mg DAILY@13 PO Last administered on 08/16/16 12:29; Admin Dose 0.125 MG; Start 08/07/16 at 13:00 IV Flush (NS 10 ml) 10 ml PRN PRN IV flush; Start 08/07/16 at 12:00 Metoprolol Succinate (Toprol Xl) 25 mg BID PO Last administered on 08/16/16 09 :00; Admin Dose 25 MG; Start 08/07/16 at 13:00 Enoxaparin Sodium (Lovenox) 95 mg Q12 SC Last administered on 08/16/16 09:08; Admin Dose 95 MG; Start 08/08/16 at 21:00 Aspirin (Aspirin) 81 mg DAILY PO Last administered on 08/16/16 08:59; Admin Dose 81 MG; Start 08/09/16 at 09:00 Levofloxacin (Levaquin) 500 mg DAILY@06 PO Last administered on 08/16/16 05:59 ; Admin Dose 500 MG; Start 08/12/16 at 06:00 Hydromorphone HCl 1 mg 1 mg Q4H PRN IV PAIN Last administered on 08/16/16 08: 42; Admin Dose 1 MG; Start 08/15/16 at 23:00 Sodium Chloride (NS) 1,000 ml @ 60 mls/hr [id number] IV Last administered on 08/15 23:11; Admin Dose 60 MLS/HR; Start 08/15/16 at 23:00 Hydromorphone HCl (Dilaudid) 2 mg Q3 PRN IV SEVERE PAIN LEVEL 7-10 Last administered on 08/16/16 12:29; Admin Dose 2 MG; Start 08/16/16 at 10:[address] abd pelvis 08/12/2016: Previously noted obstructing 0.6 cm calculus in the proximal right ureter has moved into the lower right kidney. Previously noted right hydronephrosis is no longer present. AVERY SHAHID [employer] Aug 16, 2016 15:28
--- NOTE | 2016-08-16 15:47 | CONS ---
Date/Time of Note Date/Time of Note DATE: 08/16/16 TIME: 15:45 Assessment/Plan Assessment/Plan Chief Complaint/Hosp Course IMP: 1.AF/AFL-rate controlled 2.HIV-on HAART 3.REnal insuff 4. Leukopenia 5. Obstructive uropathy. 6. Hepatic steatosis. 7. Inguinal hernia. 8. Hyponatremia. 9. Positive troponin-now trended negative/NL EF by echo this admit. Likley type 2 infarct. NO chest pain at this time. Now s/p lexiscan with no sig ischemia this admission Recc: -Tele -Continue BB -Continue digoxin -Continue asa -Continue abx's and f/u cx data -Continue lovenox for AF with transition to eliquis/xarelto at d/c -Follow volume status closely -Consider lexiscan when stable to assess significance of positive troponin Problems: Consultation Date/Type/Reason Admit Date/Time Aug 05, 2016 at 20:09 Initial Consult Date 08/06/16 Type of Consultation: cardiology Reason for Consultation AF Referring Provider: MAXMIE MCKEON Exam/Review of Systems Vital Signs Vitals Vital Signs Date Time Temp Pulse Resp B/P Pulse Ox O2 Delivery O2 Flow Rate FiO2 08/16/16 12:22 62 08/16/16 11:54 97.6 20 121/77 98 Intake and Output 08/15/16 08/15/16 08/16/16 15:00 23:00 07:00 Intake Total 500 ml 760 ml Output Total 200 ml Balance 500 ml 560 ml Exam Review of Systems: CONSTITUTIONAL: No fevers, chills. PULMONARY: No sob CARDIOVASCULAR: No chest pain/palpitations GASTROINTESTINAL: No nausea/vomiting. GENITOURINARY: No hematuria/dysuria. MUSCULOSKELETAL: No myagias/arthalgias. PSYCHIATRIC: The patient denies depression. NEUROLOGIC: mild generalized Constitutional: alert Psych: no complaints Head: normocephalic ENMT: mucosa pink and moist Neck: jvd (8 cm water), supple Respiratory: clear to auscultation Cardiovascular: regular rate and rhythm Gastrointestinal: non-tender, soft Musculoskeletal: muscle tone (normal) Extremities: edema (none) Neurological: other (No focal deficits) Results Result Diagram: 08/16/16 0735 08/16/16 0735 Results 24 hrs Laboratory Tests Test 08/16/16 07:35 White Blood Count 5.5 # Red Blood Count 4.70 Hemoglobin 13.9 L Hematocrit 40.3 L Mean Corpuscular Volume 85.7 Mean Corpuscular Hemoglobin 29.6 Mean Corpuscular Hemoglobin Concent 34.5 Red Cell Distribution Width 14.1 Platelet Count 281 Mean Platelet Volume 9.6 Neutrophils % 22.9 L Lymphocytes % 61.8 H Monocytes % 9.8 Eosinophils % 3.8 Basophils % 0.4 Nucleated Red Blood Cells % 0.0 Neutrophils # 1.3 L Lymphocytes # 3.4 H Monocytes # 0.5 Eosinophils # 0.2 Basophils # 0.0 Nucleated Red Blood Cells # 0.0 Sodium Level 137 Potassium Level 4.0 Chloride Level 106 Carbon Dioxide Level 24 Anion Gap 11 Blood Urea Nitrogen 17 Creatinine 0.93 Glucose Level 103 Calcium Level 9.3 Medications Medications Current Medications Trimethoprim/ Sulfamethoxazole (Bactrim (Ds)) 1 tab MoWeFr PO Last administered on 08/12/16 23:10; Admin Dose 1 TAB; Start 08/08/16 at 21:30 Azithromycin (Zithromax) 1,200 mg Q7D PO Last administered on 08/13/16 20:42; Admin Dose 1,200 MG; Start 08/06/16 at 21:30 Acetaminophen (Tylenol Tab) 650 mg Q4H PRN PO PAIN AND OR ELEVATED TEMP; Start 08/07/16 at 08:00 Diltiazem HCl (Cardizem Iv) 10 mg Q1H PRN IV HR GREATER THAN 110; Start at 08:00 Ondansetron HCl (Zofran Inj) 4 mg Q4H PRN IV NAUSEA AND/OR VOMITING Last administered on 08/15/16 21:45; Admin Dose 4 MG; Start 08/07/16 at 08:00 Darunavir (Prezista) 800 mg DAILY PO Last administered on 08/16/16 08:59; Admin Dose 800 MG; Start 08/07/16 at 10:00 Elvitegravir/ Cobicis/Emtricit/ Tenof (Stribild Tablet) 1 each DAILY PO Last administered on 08/16/16 08:59; Admin Dose 1 EACH; Start 08/07/16 at 10:00 Digoxin (Digoxin) 0.125 mg DAILY@13 PO Last administered on 08/16/16 12:29; Admin Dose 0.125 MG; Start 08/07/16 at 13:00 IV Flush (NS 10 ml) 10 ml PRN PRN IV flush; Start 08/07/16 at 12:00 Metoprolol Succinate (Toprol Xl) 25 mg BID PO Last administered on 08/16/16 09 :00; Admin Dose 25 MG; Start 08/07/16 at 13:00 Enoxaparin Sodium (Lovenox) 95 mg Q12 SC Last administered on 08/16/16 09:08; Admin Dose 95 MG; Start 08/08/16 at 21:00 Aspirin (Aspirin) 81 mg DAILY PO Last administered on 08/16/16 08:59; Admin Dose 81 MG; Start 08/09/16 at 09:00 Levofloxacin (Levaquin) 500 mg DAILY@06 PO Last administered on 08/16/16 05:59 ; Admin Dose 500 MG; Start 08/12/16 at 06:00 Hydromorphone HCl 1 mg 1 mg Q4H PRN IV PAIN Last administered on 08/16/16 08: 42; Admin Dose 1 MG; Start 08/15/16 at 23:00 Sodium Chloride (NS) 1,000 ml @ 60 mls/hr [id number] IV Last administered on 08/15 23:11; Admin Dose 60 MLS/HR; Start 08/15/16 at 23:00 Hydromorphone HCl (Dilaudid) 2 mg Q3 PRN IV SEVERE PAIN LEVEL 7-10 Last administered on 08/16/16 12:29; Admin Dose 2 MG; Start 08/16/16 at 10:30 DO JORDAN Aug 16, 2016 15:47
[2016-08-16] MEDS: SOD CHLORIDE 0.9% 1,000 ML IV SCH (17:02)
--- NOTE | 2016-08-16 17:40 | CONS ---
Date/Time of Note Date/Time of Note DATE: 08/16/16 TIME: 17:39 Assessment/Plan Assessment/Plan Additional Assessment/Plan 1. Acute kidney injury, multifactorial secondary to prerenal azotemia, decreased perfusion in the setting of atrial fibrillation, possibly secondary to mild right hydronephrosis secondary to nephrolithiasis. 2. Mild right hydronephrosis secondary to right proximal ureteral kidney stone. 3. Hyponatremia secondary to hypovolemic hyponatremia. 4. History of human immunodeficiency virus, does not know last CD4 count. 5. Atrial fibrillation with rapid ventricular rate. 6. Hypertension. 7. s/p Septic shock with bacteremia PLAN: Na normal today , off IV fluids Cr normal today - ID following HIV meds and Prophylaxis as per ID will follow up Consultation Date/Type/Reason Admit Date/Time Aug 05, 2016 at 20:09 Initial Consult Date 08/06/16 Type of Consultation: NEPHROLOGY Referring Provider: MAXIME MCKEON Exam/Review of Systems Vital Signs Vitals Vital Signs Date Time Temp Pulse Resp B/P Pulse Ox O2 Delivery O2 Flow Rate FiO2 08/16/16 16:22 59 08/16/16 16:02 98.0 20 113/76 97 Intake and Output 08/15/16 08/15/16 08/16/16 15:00 23:00 07:00 Intake Total 500 ml 760 ml Output Total 200 ml Balance 500 ml 560 ml Exam GENERAL: awake, alert HEENT: LORIN< EOMI NECK: Supple, no JVD, no lymphadenopathy. LUNGS: Clear to auscultation. Decreased breath sounds at both lung bases. HEART: S1, S2, with regular rhythm, no murmur. ABDOMEN: Soft, NT, ND, BS+ EXTREMITIES: No clubbing, cyanosis, edema. NEUROLOGICAL: Nonfocal, intact. Results Result Diagram: 08/16/16 0735 08/16/16 0735 Results 24 hrs Laboratory Tests Test 08/16/16 07:35 White Blood Count 5.5 # Red Blood Count 4.70 Hemoglobin 13.9 L Hematocrit 40.3 L Mean Corpuscular Volume 85.7 Mean Corpuscular Hemoglobin 29.6 Mean Corpuscular Hemoglobin Concent 34.5 Red Cell Distribution Width 14.1 Platelet Count 281 Mean Platelet Volume 9.6 Neutrophils % 22.9 L Lymphocytes % 61.8 H Monocytes % 9.8 Eosinophils % 3.8 Basophils % 0.4 Nucleated Red Blood Cells % 0.0 Neutrophils # 1.3 L Lymphocytes # 3.4 H Monocytes # 0.5 Eosinophils # 0.2 Basophils # 0.0 Nucleated Red Blood Cells # 0.0 Sodium Level 137 Potassium Level 4.0 Chloride Level 106 Carbon Dioxide Level 24 Anion Gap 11 Blood Urea Nitrogen 17 Creatinine 0.93 Glucose Level 103 Calcium Level 9.3 Medications Medications Current Medications Trimethoprim/ Sulfamethoxazole (Bactrim (Ds)) 1 tab MoWeFr PO Last administered on 08/12/16 23:10; Admin Dose 1 TAB; Start 08/08/16 at 21:30 Azithromycin (Zithromax) 1,200 mg Q7D PO Last administered on 08/13/16 20:42; Admin Dose 1,200 MG; Start 08/06/16 at 21:30 Acetaminophen (Tylenol Tab) 650 mg Q4H PRN PO PAIN AND OR ELEVATED TEMP; Start 08/07/16 at 08:00 Diltiazem HCl (Cardizem Iv) 10 mg Q1H PRN IV HR GREATER THAN 110; Start at 08:00 Ondansetron HCl (Zofran Inj) 4 mg Q4H PRN IV NAUSEA AND/OR VOMITING Last administered on 08/15/16 21:45; Admin Dose 4 MG; Start 08/07/16 at 08:00 Darunavir (Prezista) 800 mg DAILY PO Last administered on 08/16/16 08:59; Admin Dose 800 MG; Start 08/07/16 at 10:00 Elvitegravir/ Cobicis/Emtricit/ Tenof (Stribild Tablet) 1 each DAILY PO Last administered on 08/16/16 08:59; Admin Dose 1 EACH; Start 08/07/16 at 10:00 Digoxin (Digoxin) 0.125 mg DAILY@13 PO Last administered on 08/16/16 12:29; Admin Dose 0.125 MG; Start 08/07/16 at 13:00 IV Flush (NS 10 ml) 10 ml PRN PRN IV flush; Start 08/07/16 at 12:00 Metoprolol Succinate (Toprol Xl) 25 mg BID PO Last administered on 08/16/16 09 :00; Admin Dose 25 MG; Start 08/07/16 at 13:00 Enoxaparin Sodium (Lovenox) 95 mg Q12 SC Last administered on 08/16/16 09:08; Admin Dose 95 MG; Start 08/08/16 at 21:00 Aspirin (Aspirin) 81 mg DAILY PO Last administered on 08/16/16 08:59; Admin Dose 81 MG; Start 08/09/16 at 09:00 Levofloxacin (Levaquin) 500 mg DAILY@06 PO Last administered on 08/16/16 05:59 ; Admin Dose 500 MG; Start 08/12/16 at 06:00 Hydromorphone HCl 1 mg 1 mg Q4H PRN IV PAIN Last administered on 08/16/16 08: 42; Admin Dose 1 MG; Start 08/15/16 at 23:00 Sodium Chloride (NS) 1,000 ml @ 60 mls/hr [id number] IV Last administered on 08/16 17:02; Admin Dose 60 MLS/HR; Start 08/15/16 at 23:00 Hydromorphone HCl (Dilaudid) 2 mg Q3 PRN IV SEVERE PAIN LEVEL 7-10 Last administered on 08/16/16 17:03; Admin Dose 2 MG; Start 08/16/16 at 10:30 SWATI VALIENTE MD Aug 16, 2016 17:40
--- NOTE | 2016-08-16 17:46 | PN ---
Date/Time of Note Date/Time of Note DATE: 08/16/16 TIME: 17:45 Assessment/Plan VTE Prophylaxis VTE Prophylaxis Intervention: SCD's Lines/Catheters IV [facility]ter [facility]from [facility]): PICC Line Central line still needed: Yes Urinary Cath still in place: No Assessment/Plan Chief Complaint/Hosp Course Patient complains of abdominal pain not relieved with current regimen, Dilaudid was increased to 2 mg every 3 hours effective, remains afebrile ASSESSMENT AND PLAN: 1. Septic shock, resolving. Dr. Bustillo is following in infectious disease consultation. Continue antibiotics per ID. 2. New onset of atrial fibrillation. Dr. Encinas is following in cardiology consultation. The patient is currently on metoprolol, digoxin and aspirin. Continue Lovenox. 3. AIDS. The patient is restarted on antiviral therapy. 4. Acute kidney injury, resolved. Continue to monitor BUN and creatinine. 5. Right upper ureteral stone with mild hydronephrosis. Dr. Kim is following in urology consultation. 6. Noncompliance with HIV medication. 7. Elevated troponin was possible type type II infarct, continue aspirin and metoprolol. Further recommendations based on clinical course. Plan of care discussed with Dr. Walden. Problems: Exam/Review of Systems Vital Signs Vitals Vital Signs Date Time Temp Pulse Resp B/P Pulse Ox O2 Delivery O2 Flow Rate FiO2 08/16/16 16:22 59 08/16/16 16:02 98.0 20 113/76 97 Intake and Output 08/15/16 08/15/16 08/16/16 15:00 23:00 07:00 Intake Total 500 ml 760 ml Output Total 200 ml Balance 500 ml 560 ml Exam Constitutional: alert, oriented Head: normocephalic Neck: supple Respiratory: normal air movement Cardiovascular: irregular rhythm Gastrointestinal: non-tender, soft Extremities: normal pulses Neurological: nl mental status Results Result Diagram: 08/16/16 0735 08/16/16 0735 Results 24 hrs Laboratory Tests Test 08/16/16 07:35 White Blood Count 5.5 # Red Blood Count 4.70 Hemoglobin 13.9 L Hematocrit 40.3 L Mean Corpuscular Volume 85.7 Mean Corpuscular Hemoglobin 29.6 Mean Corpuscular Hemoglobin Concent 34.5 Red Cell Distribution Width 14.1 Platelet Count 281 Mean Platelet Volume 9.6 Neutrophils % 22.9 L Lymphocytes % 61.8 H Monocytes % 9.8 Eosinophils % 3.8 Basophils % 0.4 Nucleated Red Blood Cells % 0.0 Neutrophils # 1.3 L Lymphocytes # 3.4 H Monocytes # 0.5 Eosinophils # 0.2 Basophils # 0.0 Nucleated Red Blood Cells # 0.0 Sodium Level 137 Potassium Level 4.0 Chloride Level 106 Carbon Dioxide Level 24 Anion Gap 11 Blood Urea Nitrogen 17 Creatinine 0.93 Glucose Level 103 Calcium Level 9.3 Medications Medications Current Medications Trimethoprim/ Sulfamethoxazole (Bactrim (Ds)) 1 tab MoWeFr PO Last administered on 08/12/16 23:10; Admin Dose 1 TAB; Start 08/08/16 at 21:30 Azithromycin (Zithromax) 1,200 mg Q7D PO Last administered on 08/13/16 20:42; Admin Dose 1,200 MG; Start 08/06/16 at 21:30 Acetaminophen (Tylenol Tab) 650 mg Q4H PRN PO PAIN AND OR ELEVATED TEMP; Start 08/07/16 at 08:00 Diltiazem HCl (Cardizem Iv) 10 mg Q1H PRN IV HR GREATER THAN 110; Start at 08:00 Ondansetron HCl (Zofran Inj) 4 mg Q4H PRN IV NAUSEA AND/OR VOMITING Last administered on 08/15/16 21:45; Admin Dose 4 MG; Start 08/07/16 at 08:00 Darunavir (Prezista) 800 mg DAILY PO Last administered on 08/16/16 08:59; Admin Dose 800 MG; Start 08/07/16 at 10:00 Elvitegravir/ Cobicis/Emtricit/ Tenof (Stribild Tablet) 1 each DAILY PO Last administered on 08/16/16 08:59; Admin Dose 1 EACH; Start 08/07/16 at 10:00 Digoxin (Digoxin) 0.125 mg DAILY@13 PO Last administered on 08/16/16 12:29; Admin Dose 0.125 MG; Start 08/07/16 at 13:00 IV Flush (NS 10 ml) 10 ml PRN PRN IV flush; Start 08/07/16 at 12:00 Metoprolol Succinate (Toprol Xl) 25 mg BID PO Last administered on 08/16/16 09 :00; Admin Dose 25 MG; Start 08/07/16 at 13:00 Enoxaparin Sodium (Lovenox) 95 mg Q12 SC Last administered on 08/16/16 09:08; Admin Dose 95 MG; Start 08/08/16 at 21:00 Aspirin (Aspirin) 81 mg DAILY PO Last administered on 08/16/16 08:59; Admin Dose 81 MG; Start 08/09/16 at 09:00 Levofloxacin (Levaquin) 500 mg DAILY@06 PO Last administered on 08/16/16 05:59 ; Admin Dose 500 MG; Start 08/12/16 at 06:00 Hydromorphone HCl 1 mg 1 mg Q4H PRN IV PAIN Last administered on 08/16/16 08: 42; Admin Dose 1 MG; Start 08/15/16 at 23:00 Sodium Chloride (NS) 1,000 ml @ 60 mls/hr [id number] IV Last administered on 08/16 17:02; Admin Dose 60 MLS/HR; Start 08/15/16 at 23:00 Hydromorphone HCl (Dilaudid) 2 mg Q4H PRN IV SEVERE PAIN LEVEL 7-10; Start at 21:00 AAKASH MITCHELL Aug 16, 2016 17:46
[2016-08-17] VITALS (11 sets, daily range): BP systolic 98–115; BP diastolic 55–81; PULSE 45–70; RESP 16–19
[2016-08-17] MEDS: HYDROmorphONE 2 MG/ML SYG IV PRN ×3 (05:22→14:55)
[2016-08-17] MEDS: LEVOFLOXACIN 500 MG TAB PO SCH (05:22)
[2016-08-17] MEDS: ASPIRIN 81 MG TAB PO SCH (08:44)
[2016-08-17] MEDS: DARUNAVIR ETHANOLATE 800 MG TABLET PO SCH (08:44)
[2016-08-17] MEDS: ELVITEGR/COBICIST/EMTRIC/TENOF 1 EACH TABLET PO SCH (08:44)
[2016-08-17] MEDS: METOPROLOL (XL) 25 MG TAB PO SCH (08:48)
[2016-08-17] MEDS: ENOXAPARIN 100 MG/ML SYG SC SCH ×2 (08:53→21:00)
[2016-08-17] MEDS: SOD CHLORIDE 0.9% 1,000 ML IV SCH (08:54)
[2016-08-17] MEDS: DIGOXIN 0.125 MG TAB PO SCH (12:38)
--- NOTE | 2016-08-17 17:08 | CONS ---
Date/Time of Note Date/Time of Note DATE: 08/17/16 TIME: 17:07 Assessment/Plan Assessment/Plan Additional Assessment/Plan Assessment/Plan 1. Acute kidney injury, multifactorial secondary to prerenal azotemia, decreased perfusion in the setting of atrial fibrillation, possibly secondary to mild right hydronephrosis secondary to nephrolithiasis. 2. Mild right hydronephrosis secondary to right proximal ureteral kidney stone. 3. Hyponatremia secondary to hypovolemic hyponatremia. 4. History of human immunodeficiency virus, does not know last CD4 count. 5. Atrial fibrillation with rapid ventricular rate. 6. Hypertension. 7. s/p Septic shock with bacteremia PLAN: Cr stable, elecrolytes stable HIV meds and Prophylaxis as per ID will follow up Consultation Date/Type/Reason Admit Date/Time Aug 05, 2016 at 20:09 Initial Consult Date 08/06/16 Type of Consultation: NEPHROLOGY Referring Provider: MAXIME MCKEON Exam/Review of Systems Vital Signs Vitals Vital Signs Date Time Temp Pulse Resp B/P Pulse Ox O2 Delivery O2 Flow Rate FiO2 08/17/16 16:00 98.0 59 16 98/55 97 Intake and Output 08/16/16 08/16/16 08/17/16 15:00 23:00 07:00 Intake Total 1920 ml 700 ml Output Total 400 ml 650 ml Balance 1520 ml 50 ml Exam GENERAL: awake, alert HEENT: LORIN< EOMI NECK: Supple, no JVD, no lymphadenopathy. LUNGS: Clear to auscultation. Decreased breath sounds at both lung bases. HEART: S1, S2, with regular rhythm, no murmur. ABDOMEN: Soft, NT, ND, BS+ EXTREMITIES: No clubbing, cyanosis, edema. NEUROLOGICAL: Nonfocal, intact. Results Result Diagram: 08/16/16 0735 08/16/16 0735 Medications Medications Current Medications Trimethoprim/ Sulfamethoxazole (Bactrim (Ds)) 1 tab MoWeFr PO Last administered on 08/12/16 23:10; Admin Dose 1 TAB; Start 08/08/16 at 21:30 Azithromycin (Zithromax) 1,200 mg Q7D PO Last administered on 08/13/16 20:42; Admin Dose 1,200 MG; Start 08/06/16 at 21:30 Acetaminophen (Tylenol Tab) 650 mg Q4H PRN PO PAIN AND OR ELEVATED TEMP; Start 08/07/16 at 08:00 Diltiazem HCl (Cardizem Iv) 10 mg Q1H PRN IV HR GREATER THAN 110; Start at 08:00 Ondansetron HCl (Zofran Inj) 4 mg Q4H PRN IV NAUSEA AND/OR VOMITING Last administered on 08/15/16 21:45; Admin Dose 4 MG; Start 08/07/16 at 08:00 Darunavir (Prezista) 800 mg DAILY PO Last administered on 08/17/16 08:44; Admin Dose 800 MG; Start 08/07/16 at 10:00 Elvitegravir/ Cobicis/Emtricit/ Tenof (Stribild Tablet) 1 each DAILY PO Last administered on 08/17/16 08:44; Admin Dose 1 EACH; Start 08/07/16 at 10:00 Digoxin (Digoxin) 0.125 mg DAILY@13 PO Last administered on 08/16/16 12:29; Admin Dose 0.125 MG; Start 08/07/16 at 13:00 IV Flush (NS 10 ml) 10 ml PRN PRN IV flush; Start 08/07/16 at 12:00 Metoprolol Succinate (Toprol Xl) 25 mg BID PO Last administered on 08/17/16 08 :48; Admin Dose 25 MG; Start 08/07/16 at 13:00 Enoxaparin Sodium (Lovenox) 95 mg Q12 SC Last administered on 08/17/16 08:53; Admin Dose 95 MG; Start 08/08/16 at 21:00 Aspirin (Aspirin) 81 mg DAILY PO Last administered on 08/17/16 08:44; Admin Dose 81 MG; Start 08/09/16 at 09:00 Levofloxacin (Levaquin) 500 mg DAILY@06 PO Last administered on 08/17/16 05:22 ; Admin Dose 500 MG; Start 08/12/16 at 06:00 Hydromorphone HCl 1 mg 1 mg Q4H PRN IV PAIN Last administered on 08/16/16 08: 42; Admin Dose 1 MG; Start 08/15/16 at 23:00 Sodium Chloride (NS) 1,000 ml @ 60 mls/hr [id number] IV Last administered on 08/17 08:54; Admin Dose 60 MLS/HR; Start 08/15/16 at 23:00 Hydromorphone HCl (Dilaudid) 2 mg Q4H PRN IV SEVERE PAIN LEVEL 7-10 Last administered on 08/17/16 14:55; Admin Dose 2 MG; Start 08/16/16 at 21:00 Morphine Sulfate (Ms Contin (Er)) 30 mg BID PO ; Start 08/17/16 at 21:00 SWATI VALIENTE MD Aug 17, 2016 17:08
--- NOTE | 2016-08-17 17:26 | CONS ---
Date/Time of Note Date/Time of Note DATE: 08/17/16 TIME: 17:23 Assessment/Plan Assessment/Plan Chief Complaint/Hosp Course IMP: 1.AF/AFL-rate controlled when slow ventricular response 2.HIV-on HAART 3.REnal insuff 4. Leukopenia 5. Obstructive uropathy. 6. Hepatic steatosis. 7. Inguinal hernia. 8. Hyponatremia. 9. Positive troponin-now trended negative/NL EF by echo this admit. Likley type 2 infarct. NO chest pain at this time. Now s/p lexiscan with no sig ischemia this admission Recc: -Tele -Continue BB but will decrease dose -Hold digoxin given bradycardia at times -Continue asa -Continue abx's and f/u cx data -Continue lovenox for AF with transition to eliquis/xarelto at d/c -Follow volume status closely -Continue HAART Problems: Consultation Date/Type/Reason Admit Date/Time Aug 05, 2016 at 20:09 Initial Consult Date 08/06/16 Type of Consultation: cardiology Reason for Consultation AF Referring Provider: MAXIME MCKEON Exam/Review of Systems Vital Signs Vitals Vital Signs Date Time Temp Pulse Resp B/P Pulse Ox O2 Delivery O2 Flow Rate FiO2 08/17/16 16:00 98.0 59 16 98/55 97 Intake and Output 08/16/16 08/16/16 08/17/16 15:00 23:00 07:00 Intake Total 1920 ml 700 ml Output Total 400 ml 650 ml Balance 1520 ml 50 ml Exam Review of Systems: CONSTITUTIONAL: No fevers, chills. PULMONARY: No sob CARDIOVASCULAR: No chest pain/palpitations GASTROINTESTINAL: No nausea/vomiting. GENITOURINARY: No hematuria/dysuria. MUSCULOSKELETAL: No myagias/arthalgias. PSYCHIATRIC: The patient denies depression. NEUROLOGIC: lethargic Constitutional: other (sleeping) Psych: no complaints Head: normocephalic ENMT: mucosa pink and moist Neck: jvd, supple Respiratory: diminished breath sounds (at bases/B) Cardiovascular: irregular rhythm Gastrointestinal: non-tender, soft Musculoskeletal: muscle weakness (generalized) Extremities: edema (none) Neurological: other (No focal deficits) Results Result Diagram: 08/16/16 0735 08/16/16 0735 Medications Medications Current Medications Trimethoprim/ Sulfamethoxazole (Bactrim (Ds)) 1 tab MoWeFr PO Last administered on 08/12/16 23:10; Admin Dose 1 TAB; Start 08/08/16 at 21:30 Azithromycin (Zithromax) 1,200 mg Q7D PO Last administered on 08/13/16 20:42; Admin Dose 1,200 MG; Start 08/06/16 at 21:30 Acetaminophen (Tylenol Tab) 650 mg Q4H PRN PO PAIN AND OR ELEVATED TEMP; Start 08/07/16 at 08:00 Diltiazem HCl (Cardizem Iv) 10 mg Q1H PRN IV HR GREATER THAN 110; Start at 08:00 Ondansetron HCl (Zofran Inj) 4 mg Q4H PRN IV NAUSEA AND/OR VOMITING Last administered on 08/15/16 21:45; Admin Dose 4 MG; Start 08/07/16 at 08:00 Darunavir (Prezista) 800 mg DAILY PO Last administered on 08/17/16 08:44; Admin Dose 800 MG; Start 08/07/16 at 10:00 Elvitegravir/ Cobicis/Emtricit/ Tenof (Stribild Tablet) 1 each DAILY PO Last administered on 08/17/16 08:44; Admin Dose 1 EACH; Start 08/07/16 at 10:00 Digoxin (Digoxin) 0.125 mg DAILY@13 PO Last administered on 08/16/16 12:29; Admin Dose 0.125 MG; Start 08/07/16 at 13:00 IV Flush (NS 10 ml) 10 ml PRN PRN IV flush; Start 08/07/16 at 12:00 Metoprolol Succinate (Toprol Xl) 25 mg BID PO Last administered on 08/17/16 08 :48; Admin Dose 25 MG; Start 08/07/16 at 13:00 Enoxaparin Sodium (Lovenox) 95 mg Q12 SC Last administered on 08/17/16 08:53; Admin Dose 95 MG; Start 08/08/16 at 21:00 Aspirin (Aspirin) 81 mg DAILY PO Last administered on 08/17/16 08:44; Admin Dose 81 MG; Start 08/09/16 at 09:00 Levofloxacin (Levaquin) 500 mg DAILY@06 PO Last administered on 08/17/16 05:22 ; Admin Dose 500 MG; Start 08/12/16 at 06:00 Hydromorphone HCl 1 mg 1 mg Q4H PRN IV PAIN Last administered on 08/16/16 08: 42; Admin Dose 1 MG; Start 08/15/16 at 23:00 Sodium Chloride (NS) 1,000 ml @ 60 mls/hr [id number] IV Last administered on 08/17 08:54; Admin Dose 60 MLS/HR; Start 08/15/16 at 23:00 Hydromorphone HCl (Dilaudid) 2 mg Q4H PRN IV SEVERE PAIN LEVEL 7-10 Last administered on 08/17/16 14:55; Admin Dose 2 MG; Start 08/16/16 at 21:00 Morphine Sulfate (Ms Contin (Er)) 30 mg BID PO ; Start 08/17/16 at 21:00 DO JORDAN Aug 17, 2016 17:25
--- NOTE | 2016-08-17 18:02 | PN ---
Date/Time of Note Date/Time of Note DATE: 08/17/16 TIME: 18:00 Assessment/Plan VTE Prophylaxis VTE Prophylaxis Intervention: LMWH Lines/Catheters IV [facility] PICC Line Central line still needed: Yes Urinary Cath still in place: No Assessment/Plan Chief Complaint/Hosp Course Patient's continues with atrial fibrillation with bradycardia, beta-blockers titrated down by cardiology, continue to monitor on telemetry floor. ASSESSMENT AND PLAN: - Septic shock, resolving. Dr. Bustillo is following in infectious disease consultation. Continue antibiotics per ID. - New onset of atrial fibrillation. Dr. Encinas is following in cardiology consultation. The patient is currently on metoprolol, digoxin and aspirin. Continue Lovenox. - AIDS. The patient is restarted on antiviral therapy. - Acute kidney injury, resolved. Continue to monitor BUN and creatinine. - Right upper ureteral stone with mild hydronephrosis. Dr. Kim is following in urology consultation. - Noncompliance with HIV medication. - Elevated troponin was possible type type II infarct, continue aspirin and metoprolol. Further recommendations based on clinical course. Plan of care discussed with Dr. Walden. Problems: Exam/Review of Systems Vital Signs Vitals Vital Signs Date Time Temp Pulse Resp B/P Pulse Ox O2 Delivery O2 Flow Rate FiO2 08/17/16 16:00 98.0 59 16 98/55 97 Intake and Output 08/16/16 08/16/16 08/17/16 15:00 23:00 07:00 Intake Total 1920 ml 700 ml Output Total 400 ml 650 ml Balance 1520 ml 50 ml Exam Constitutional: alert, oriented Head: normocephalic Neck: supple Respiratory: normal air movement Cardiovascular: irregular rhythm Gastrointestinal: non-tender, soft Extremities: normal pulses Neurological: nl mental status Results Result Diagram: 08/16/16 0735 08/16/16 0735 Medications Medications Current Medications Trimethoprim/ Sulfamethoxazole (Bactrim (Ds)) 1 tab MoWeFr PO Last administered on 08/12/16 23:10; Admin Dose 1 TAB; Start 08/08/16 at 21:30 Azithromycin (Zithromax) 1,200 mg Q7D PO Last administered on 08/13/16 20:42; Admin Dose 1,200 MG; Start 08/06/16 at 21:30 Acetaminophen (Tylenol Tab) 650 mg Q4H PRN PO PAIN AND OR ELEVATED TEMP; Start 08/07/16 at 08:00 Diltiazem HCl (Cardizem Iv) 10 mg Q1H PRN IV HR GREATER THAN 110; Start at 08:00 Ondansetron HCl (Zofran Inj) 4 mg Q4H PRN IV NAUSEA AND/OR VOMITING Last administered on 08/15/16 21:45; Admin Dose 4 MG; Start 08/07/16 at 08:00 Darunavir (Prezista) 800 mg DAILY PO Last administered on 08/17/16 08:44; Admin Dose 800 MG; Start 08/07/16 at 10:00 Elvitegravir/ Cobicis/Emtricit/ Tenof (Stribild Tablet) 1 each DAILY PO Last administered on 08/17/16 08:44; Admin Dose 1 EACH; Start 08/07/16 at 10:00 Digoxin (Digoxin) 0.125 mg DAILY@13 PO Last administered on 08/16/16 12:29; Admin Dose 0.125 MG; Start 08/07/16 at 13:00; Status Future Hold IV Flush (NS 10 ml) 10 ml PRN PRN IV flush; Start 08/07/16 at 12:00 Enoxaparin Sodium (Lovenox) 95 mg Q12 SC Last administered on 08/17/16 08:53; Admin Dose 95 MG; Start 08/08/16 at 21:00 Aspirin (Aspirin) 81 mg DAILY PO Last administered on 08/17/16 08:44; Admin Dose 81 MG; Start 08/09/16 at 09:00 Levofloxacin (Levaquin) 500 mg DAILY@06 PO Last administered on 08/17/16 05:22 ; Admin Dose 500 MG; Start 08/12/16 at 06:00 Hydromorphone HCl 1 mg 1 mg Q4H PRN IV PAIN Last administered on 08/16/16 08: 42; Admin Dose 1 MG; Start 08/15/16 at 23:00 Sodium Chloride (NS) 1,000 ml @ 60 mls/hr [id number] IV Last administered on 08/17 08:54; Admin Dose 60 MLS/HR; Start 08/15/16 at 23:00 Hydromorphone HCl (Dilaudid) 2 mg Q4H PRN IV SEVERE PAIN LEVEL 7-10 Last administered on 08/17/16t 14:55; Admin Dose 2 MG; Start 08/16/16 at 21:00 Morphine Sulfate (Ms Contin (Er)) 30 mg BID PO ; Start 08/17/16 at 21:00 Metoprolol Succinate (Toprol Xl) 25 mg DAILY PO ; Start 08/18/16 at 09:00 AAKASH MITCHELL Aug 17, 2016 18:02
--- NOTE | 2016-08-17 18:18 | CONS ---
Date/Time of Note Date/Time of Note DATE: 08/17/16 TIME: 18:15 Assessment/Plan Assessment/Plan Additional Assessment/Plan - septic shock, unclear etiology. 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 The sensitivity result was canned on 06/23/2016. Pt took imipenem and aztreonam around that time (his strain of moraxella was sensitive to both in vitro). Subsequent blood cultures were negative. - h/o recurrent neutropenic fever, infectious process vs. immune reconstitution inflammatory response. 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 Restarted on Stribild and darunavir on 04/23/2016; however, likely stopped after the last admission because his viral load is very high and CD4 count is very low. Genotype on 04/20/2016 showed a wild type virus without baseline mutations. - h/o neutropenia s/p BMBx, no e/o infections or malignancy at this time. CMV IHC negative, CMV PCR in serum was <200, cocci and crypto negative, QTB gold negative - h/o L cervical and supraclavicular lymphadenopathy s/p excisional Bx in 04/2016 : Dr. 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 He recommended the patient receive anti retroviral therapy that should be closely monitored since there is a high incidence of evolution to an overt lymphoma. This was discussed with Pt - h/o cough in 03/2016. CXR showed overinflated lungs, CT showed benign appearing sub-centimeter nodule seen at the bilateral lung bases - LUE weakness and pain due to tear of rotator cuff muscles and bicep tendon anchor (shown on MRI) - h/o thrush, resolved - hyperpigmented lesions on b/l LE x several months according to Pt - h/o pruritis, probably due to atovaquone. 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 - continue Stribild (tenofovir/emtricitabine/elvitegravir/cobicistat) and darunavir 800mg - continue Bactrim three times a week for pneumocystis prophylaxis - continue weekly azithromycin for MAC prophylaxis - discontinue neutropenic precautions - Pt confirmed that his son and daughter know of his HIV+ status. Pt does not want the other family members to know his HIV+ status - Pt has a f/u appointment with his PMD Management d/w patient and Dr. Narayanan Consultation Date/Type/Reason Admit Date/Time Aug 05, 2016 at 20:09 Initial Consult Date 08/06/16 Type of Consultation: INFECTION DISEASE Referring Provider: MAXIME MCKEON Exam/Review of Systems Vital Signs Vitals Vital Signs Date Time Temp Pulse Resp B/P Pulse Ox O2 Delivery O2 Flow Rate FiO2 08/17/16 16:00 98.0 59 16 98/55 97 Intake and Output 08/16/16 08/16/16 08/17/16 15:00 23:00 07:00 Intake Total 1920 ml 700 ml Output Total 400 ml 650 ml Balance 1520 ml 50 ml Exam Constitutional: alert, oriented, well developed Respiratory: clear to auscultation, normal air movement Cardiovascular: nl pulses, regular rate and rhythm Gastrointestinal: non-tender, soft Musculoskeletal: nl extremities to inspection Neurological: nl mental status, nl speech Results Result Diagram: 08/16/16 0735 08/16/16 0735 Medications Medications Current Medications Trimethoprim/ Sulfamethoxazole (Bactrim (Ds)) 1 tab MoWeFr PO Last administered on 08/12/16 23:10; Admin Dose 1 TAB; Start 08/08/16 at 21:30 Azithromycin (Zithromax) 1,200 mg Q7D PO Last administered on 08/13/16 20:42; Admin Dose 1,200 MG; Start 08/06/16 at 21:30 Acetaminophen (Tylenol Tab) 650 mg Q4H PRN PO PAIN AND OR ELEVATED TEMP; Start 08/07/16 at 08:00 Diltiazem HCl (Cardizem Iv) 10 mg Q1H PRN IV HR GREATER THAN 110; Start at 08:00 Ondansetron HCl (Zofran Inj) 4 mg Q4H PRN IV NAUSEA AND/OR VOMITING Last administered on 08/15/16 21:45; Admin Dose 4 MG; Start 08/07/16 at 08:00 Darunavir (Prezista) 800 mg DAILY PO Last administered on 08/17/16 08:44; Admin Dose 800 MG; Start 08/07/16 at 10:00 Elvitegravir/ Cobicis/Emtricit/ Tenof (Stribild Tablet) 1 each DAILY PO Last administered on 08/17/16 08:44; Admin Dose 1 EACH; Start 08/07/16 at 10:00 Digoxin (Digoxin) 0.125 mg DAILY@13 PO Last administered on 08/16/16 12:29; Admin Dose 0.125 MG; Start 08/07/16 at 13:00; Status Future Hold IV Flush (NS 10 ml) 10 ml PRN PRN IV flush; Start 08/07/16 at 12:00 Enoxaparin Sodium (Lovenox) 95 mg Q12 SC Last administered on 08/17/16 08:53; Admin Dose 95 MG; Start 08/08/16 at 21:00 Aspirin (Aspirin) 81 mg DAILY PO Last administered on 08/17/16 08:44; Admin Dose 81 MG; Start 08/09/16 at 09:00 Levofloxacin (Levaquin) 500 mg DAILY@06 PO Last administered on 08/17/16 05:22 ; Admin Dose 500 MG; Start 08/12/16 at 06:00 Hydromorphone HCl 1 mg 1 mg Q4H PRN IV PAIN Last administered on 08/16/16 08: 42; Admin Dose 1 MG; Start 08/15/16 at 23:00 Sodium Chloride (NS) 1,000 ml @ 60 mls/hr [id number] IV Last administered on 08/17 08:54; Admin Dose 60 MLS/HR; Start 08/15/16 at 23:00 Hydromorphone HCl (Dilaudid) 2 mg Q4H PRN IV SEVERE PAIN LEVEL 7-10 Last administered on 08/17/16t 14:55; Admin Dose 2 MG; Start 08/16/16 at 21:00 Morphine Sulfate (Ms Contin (Er)) 30 mg BID PO ; Start 08/17/16 at 21:00 Metoprolol Succinate (Toprol Xl) 25 mg DAILY PO ; Start 08/18/16 at 09:00 MAXIME MCKEON Aug 17, 2016 18:18
[2016-08-17] MEDS ORDERED: morphine (ER) 30 MG TAB PO SCH (21:00)
[2016-08-17] MEDS: TRIMETHOPRIM/SULFAMETHOX (DS) TAB PO SCH (21:06)
[2016-08-18] MEDS ORDERED: METOPROLOL (XL) 25 MG TAB PO SCH (09:00)
== END 2016-08-17 22:05 | disposition left against medical advice (07) | DRG 974 ==
LOC: E/R 19:00 → TEL 20:09 → ICU 08-06 15:15 → UNDODISIN 08-06 21:02 → MS4 08-09 19:48
PROVIDERS: ADMIT Internal Medicine; ATTEND Internal Medicine
PROC: 02HV33Z Insertion of Infusion Device into Superior Vena Cava, Percutaneous Approach (ICD-10-PCS; principal; 2016-08-07)
PROC: B548ZZA Ultrasonography of Superior Vena Cava, Guidance (ICD-10-PCS; 2016-08-07)
PROC: C22G1ZZ Tomographic (Tomo) Nuclear Medicine Imaging of Myocardium using Technetium 99m (Tc-99m) (ICD-10-PCS; 2016-08-11)
PROC: 4A02XM4 Measurement of Cardiac Total Activity, External Approach (ICD-10-PCS; 2016-08-12)
PROC: 3E033HZ Introduction of Radioactive Substance into Peripheral Vein, Percutaneous Approach (ICD-10-PCS; 2016-08-12)
DX: B20 Human immunodeficiency virus [HIV] disease (principal); A41.9 Sepsis, unspecified organism; R65.21 Severe sepsis with septic shock; N17.9 Acute kidney failure, unspecified; D70.9 Neutropenia, unspecified; I48.91 Unspecified atrial fibrillation; I10 Essential (primary) hypertension; E86.1 Hypovolemia; E87.1 Hypo-osmolality and hyponatremia; N13.6 Pyonephrosis; D47.Z9 Other specified neoplasms of uncertain behavior of lymphoid, hematopoietic and related tissue; E78.5 Hyperlipidemia, unspecified; Z91.14 Patient's other noncompliance with medication regimen; K76.0 Fatty (change of) liver, not elsewhere classified; K40.90 Unilateral inguinal hernia, without obstruction or gangrene, not specified as recurrent; R79.89 Other specified abnormal findings of blood chemistry; Z22.39 Carrier of other specified bacterial diseases; Z16.21 Resistance to vancomycin; R91.8 Other nonspecific abnormal finding of lung field; L98.9 Disorder of the skin and subcutaneous tissue, unspecified; M75.102 Unspecified rotator cuff tear or rupture of left shoulder, not specified as traumatic
CPT/HCPCS: 36415; 36569; 71010; 74000; 74176; 76937; 78452; 80048; 80053; 80076; 81001; 81003; 82247; 82248; 83605; 83735; 83880; 84100; 84436; 84443; 84484; 85025; 85610; 85730; 86360; 87040; 87045; 87075; 87081; 87086; 87536; 93005; 93017; 93306; 96365; 96366; 96367; 96375; A9500; A9505; J0282; J0692; J1170; J1650; J1956; J2185; J2270; J2405; J2543; J2785; J3370; J3475; J3480; J7030; J7050

== ENCOUNTER 2017-02-28 08:22 | Inpatient (IN) | END 2017-03-15 18:55 | disposition hospice, home (50) | DRG 974 ==